=== PATIENT | female | born 1955 | race Caucasian/White ===

== ENCOUNTER 2020-08-01 13:05 | Outpatient (REF) | payer MEDICAID, SELFPAY ==
--- NOTE | 2020-08-01 11:45 | PAPFT_PTH ---
PATIENT: Blanca Lujan LOC: [facility]#:[id number] AGE/SX: 64/F ROOM: RE08/01/[address]: Hina Johnson : 1955 BED: DIS: 08/01/2020 SPEC #: [id number] RECD: 08/01/20 18:02 STATUS: SIVAKUMAR REQ #: [id number] CONY: 08/01/20 11:[address]: Hina Johnson DEPT: [facility] Cytology RECD BY: Kylee Simons ENTERED: 08/01/20 18:03 SP TYPE: PAPFT OTHR DR: Shruthi Arrington V Tissues: 1 - CX/ENDOCX FOR PAP SMEARS Procedures: PAP THIN PREP/[facility] Screening Comments: [id number]
[2020-08-01 15:44] LABS: Abs Immature Grans 0.03 10^3/uL (0.0-0.06); Absolute Basophil Count 0.03 10^3/uL (0.0-0.2); Absolute Eosinophil Count 0.24 10^3/uL (0.0-0.7); Absolute Lymphocyte Count 2.17 10^3/uL (1.2-3.4); Absolute Neutrophil Count 4.68 10^3/uL (1.2-6.7); Basophils % 0.4; Eosinophils % 3.1; HCT 45.9 % (36.0-46.0); HGB 15.4 g/dL (11.2-15.7); Immature Grans % 0.4; Lymphocytes % 28.4; MCH 29.6 pg (27.0-33.0); MCHC 33.6 % (32.0-36.0); MCV 88.1 fL (80-95); MPV 10.7 fL (8.0-11.0); Monocytes % 6.5; Neutrophils % 61.2; Nucleated RBC 0 %; Platelet Count 249 10^3/uL (130-400); RBC 5.21 10^6/uL (3.93-5.22); RDW 11.9 % (11.7-14.6); RDW-SD 38.8 fL; WBC 7.65 10^3/uL (4.4-10.8)
[2020-08-01 16:05] LABS: Hemoglobin A1C 5.9 % (<5.7)
[2020-08-01 16:22] LABS: ALT 50 U/L (14-59); AST 24 U/L (15-37); Albumin 4.2 g/dL (3.4-5.0); Alkaline Phosphatase 65 U/L (46-116); Anion Gap 11.1 mmol/L (3-11); BUN 16 mg/dL (7-18); Bilirubin, Total 0.3 mg/dL (0.2-1.0); CO2 25.9 mmol/L (21.0-32.0); CREATININE 0.8 mg/dL (0.55-1.02); Calcium 9.5 mg/dL (8.5-10.1); Calculated LDL 123 mg/dL (<100); Chloride 103 mmol/L (98-107); Cholesterol 210 mg/dL (<200); Glucose 90 mg/dL (74-106); HDL Cholesterol 37 mg/dL (40-60); Potassium 4.1 mmol/L (3.5-5.1); Sodium 140 mmol/L (136-145); TSH (W/Ref FT4) 1.38 uIU/mL (0.36-3.74); Total Protein 7.4 g/dL (6.4-8.2); Triglyceride 253 mg/dL (<150)
== END 2020-08-01 13:06 | disposition home or self-care (01) ==
LOC: NCHCN 13:05
PROVIDERS: PCP Family Medicine; Visit Provider Nurse Practitioner Family
DX: R53.83 Other fatigue (principal); R63.5 Abnormal weight gain; R19.7 Diarrhea, unspecified; Z13.1 Encounter for screening for diabetes mellitus; Z13.220 Encounter for screening for lipoid disorders; N76.0 Acute vaginitis; Z12.4 Encounter for screening for malignant neoplasm of cervix
CPT/HCPCS: 80053; 80061; 88142; 83036; 84443; 85025; 87480; 87510; 87660

== ENCOUNTER 2020-08-14 00:47 | Outpatient (CLI) | payer MEDICAID, SELFPAY ==
--- NOTE | 2020-08-14 | DI.MAMMO_ITS ---
EXAM: MG MAMMO SCREENING CLINICAL HISTORY: SCREENING, [facility],Z00.00 TECHNIQUE: Bilateral full field digital CC and MLO mammographic images were obtained with 3D tomosyn thesis and utilizing computer aided detection (CAD). COMPARISON: Available for comparison. FINDINGS: Masses/Architectural Distortion: None seen. Microcalcifications: No suspicious pleomorphic-type are seen. Skin Thickening/Nipple Retraction: None. IMPRESSION: 1. No significant interval change with no specific features of malignancy noted. 2. Unless there is more urgent need, screening mammography is recommended, as per [place] [employer] guidelines. BI-RADS Category 1 - Negative Breast Density - Category B - Scattered areas of fibroglandular density Breast density category C or D implies that the patient has dense breast tissue. Dense breast tissue is very common and is not abnormal but dense breast tissue can make it harder to find cancer on a ma mmogram. Also, dense breast tissue may increase their breast cancer risk. This information about the result of the mammogram report was provided to the patient to raise their awareness. Use this report when you speak with the patient about their risks for breast cancer, which includes their family hist ory. At that time, you may recommend for more screening tests (Ultrasound or MRI) as they might be us eful based on their risk. A negative radiographic report should not delay biopsy if a dominant or clinically suspicious mass is present. Up to ten percent of cancers are not identified on mammography. A negative report may reinforce clinical impression. Adenosis and dense breasts may obscure an underlying neoplasm. False positive reports average 6 to 10%. Patient will receive a letter notifying them of these results.
== END 2020-08-14 01:07 ==
PROVIDERS: PCP Family Medicine; Visit Provider Nurse Practitioner Family
DX: Z12.31 Encounter for screening mammogram for malignant neoplasm of breast (principal)
CPT/HCPCS: 77063; 77067

== ENCOUNTER 2021-10-08 18:35 | Outpatient (REF) | payer MEDICAID, SELFPAY ==
[2021-10-08 21:17] LABS: Abs Immature Grans 0.05 10^3/uL (0.0-0.06); Absolute Basophil Count 0.07 10^3/uL (0.0-0.2); Absolute Lymphocyte Count 1.44 10^3/uL (1.2-3.4); Absolute Monocyte Count 0.87 10^3/uL (0.1-0.8); Absolute Neutrophil Count 8.55 10^3/uL (1.2-6.7); Basophils % 0.6; Eosinophils % 1.8; HCT 45.1 % (36.0-46.0); Immature Grans % 0.4; Lymphocytes % 12.9; MCH 29.8 pg (27.0-33.0); MCHC 33.3 % (32.0-36.0); MCV 89.5 fL (80-95); Monocytes % 7.8; Neutrophils % 76.5; Platelet Count 211 10^3/uL (130-400); RBC 5.04 10^6/uL (3.93-5.22); RDW 12.3 % (11.7-14.6); RDW-SD 40.5 fL; WBC 11.18 10^3/uL (4.4-10.8)
[2021-10-08 21:42] LABS: ALT 30 U/L (14-59); AST 19 U/L (15-37); Albumin 4.2 g/dL (3.4-5.0); Alkaline Phosphatase 67 U/L (46-116); Anion Gap 8.5 mmol/L (3-11); BUN 14 mg/dL (7-18); Bilirubin, Total 0.7 mg/dL (0.2-1.0); CO2 27.5 mmol/L (21.0-32.0); CREATININE 0.8 mg/dL (0.55-1.02); Chloride 103 mmol/L (98-107); Glucose 105 mg/dL (74-106); Potassium 4.5 mmol/L (3.5-5.1); Sodium 139 mmol/L (136-145); Total Protein 7.3 g/dL (6.4-8.2)
[2021-10-10 11:37] LABS: COVID-19 RT-PCR UVMMC Result Negative (Negative)
== END 2021-10-08 18:36 | disposition home or self-care (01) ==
LOC: LBN 18:35
PROVIDERS: PCP Family Medicine; Visit Provider Physician Assistant Medical
DX: R10.9 Unspecified abdominal pain (principal); Z20.822 Contact with and (suspected) exposure to COVID-19
CPT/HCPCS: 80053; U0003; 85025

== ENCOUNTER → 2021-10-09 14:32 | Outpatient (CLI) | payer MEDICAID, SELFPAY ==
--- NOTE | 2021-10-09 | DI.CT_ITS ---
Exam(s) CT ABDOMEN PELVIS W EXAM: CT ABDOMEN PELVIS W INDICATION: LLQ ABD PAIN,? DIVERTICULITIS. COMPARISON: No exams were available for comparison TECHNIQUE: FINDINGS: CT examination of the abdomen and pelvis was performed with a bolus infusion of 100 cc of Omnipaque 3 50. Images obtained through the lung bases are unremarkable. The liver is unremarkable in appearance. Gallbladder and bile ducts are CT normal. Pancreas appears normal. Spleen is unremarkable in appearance. Adrenals appear normal. The kidneys are unremarkable with no evidence of hydronephrosis, nephrolithiasis, or renal mass.. Ur inary bladder unremarkable. Abdominal aorta is of normal diameter and no major vascular abnormality is seen. No abdominal wall hernia. No abdominal or pelvic adenopathy. There are multiple uterine masses which are partially calcified consistent uterine fibroids period. The appendix is normal in diameter although fluid filled. Note is made of question of wall thickenin g the base of the cecum adjacent to the appendix, possibility of a focal cecal mass would have to be raised. Correlation with colonoscopy is recommended. Nonspecific small lymph nodes noted adjacent t o the base of the cecum, the largest about 10 millimeters in diameter. Note is made of focal area of wall thickening with associated pericolonic fat edema of the distal edmond cending colon consistent with diverticulitis. No perforation or abscess identified at this site. Mi ld prominence of pericolonic mesenteric lymph nodes. No evidence of obstruction. IMPRESSION: Acute diverticulitis of the distal descending colon, no evidence of perforation or abscess formation. Worrisome findings of wall thickening of the base of the cecum adjacent to the appendix, colonoscopic evaluation recommended to rule out neoplastic disease. There are a few small lymph nodes in the fat adjacent to the base of the cecum, the largest measuring about 10 millimeters in diameter. These are nonspecific with no bulky adenopathy seen. RADIATION DOSE DELIVERED: 1,046.28mGy.cm Total DLP 1,046.28mGy.cm Total DLP !Error CTDIvol RADIATION OPTIMIZATION: All CT scans at this facility use at least one of these dose optimization te chniques: automated exposure control; mA and/or kV adjustment per patient size (includes targeted exa ms where dose is matched to clinical indication); or iterative reconstruction.
[2021-10-09] MEDS: Omnipaque 350 MG/ML 50 ML BTL IJ (09:30)
[2021-10-09] MEDS: Breeza Beverage 473 ML BTL PO (09:30)
[2021-10-09] MEDS: Omnipaque 350 MG/ML 100 ML BTL IJ (09:31)
== END ==
PROVIDERS: PCP Family Medicine; Visit Provider Physician Assistant Medical
DX: R10.32 Left lower quadrant pain (principal); K57.32 Diverticulitis of large intestine without perforation or abscess without bleeding; K63.89 Other specified diseases of intestine
CPT/HCPCS: 74177; J3490; Q9967

== ENCOUNTER 2021-10-14 02:00 | Outpatient (CLI) | payer MEDICAID, SELFPAY ==
--- OUTSIDE RECORDS SUMMARY | 2021-10-14 02:01 | XMS_ITS ---
:1955 Author Care Team Providers Name Role Phone [facility] OTHER [phone] SHARYN TURNER Primary Care Provider [phone] Allergies Code Code System Name Reaction Severity Status Onset 20360723 RxNorm Biaxin Hives ? Active ? Notes: Another antibiotic but pt could not remember name Pollen Medications Name Status Start Date Stop Date ? ? Ambien 10 mg tablet Completed 05/09/2014 05/10/2014 1 (one) Tablet: qhs - at bedtime prn cholecalciferol (vitamin D3) 50 mcg (2,000 unit) capsule Active ? Not available take 1 capsule in summer daily; take 2 capsules in winter daily cyanocobalamin (vit B-12) 500 mcg tablet Active ? Not available take 1 to 2 tabs in morning daily magnesium 250 mg (as magnesium oxide) tablet Active ? Not available TAKE 1 TABLET BY MOUTH TWICE DAILY magnesium 250 mg tablet Active ? Not avai lable Take 1 tablet twice a day by oral route. magnesium gluconate 27 mg Completed ? 2020 magnesium (500 mg) tablet vitamin B complex tablet Active ? Not joel ilable Take 1 tablet every day by oral route in the morning. Vitamins B Complex capsule Active ? Not a vailable Problems Name Status Onset Date Source ? Vitamin D Deficiency Active ? History Bruxism (Teeth Grinding) Active ? ? Posttraumatic Stress Disorder Active ? Hi story Depressive Disorder Active ? History Obstructive Sleep Apnea Syndrome Active ? History Lack of Energy Active ? History Snoring Active ? History Elevated Blood-pressure Reading without Active ? History Diagnosis of Hypertension Procedure by Method Unknown ? History Clinical Finding Unknown ? History Digestive System Finding Unknown ? History Procedures None recorded. Results Lab Results Date Name Specimen Result Interpretation Description Value Range Status Address ? 03/05/2021 Vitamin B12, S ? Vit 374.0 193.0-986.0 [facility] Serum B12 pg/mL pg/mL Hospital L ab (Internal) : [address] 03/05/2021 Vitamin D, S ? 25-Hyd <4.0 ? Final [place] [facility] [place] 25-Hydroxy, marcella D2 NG/mL Hosp ital Lab Total, Serum (Int ernal): [address], [place] ? ? S ? 25-Hyd 45 ? Final [facility] ntry marcella D3 NG/mL Hospital Lab (Internal) : [address] ? ? S ? 25-Hyd 45 ? Final [facility] ntry marcella D NG/mL Hospital L ab Total (Internal) : [address] 04/07/2017 Venipuncture BLD ? Venpn* ? ? Final [facility] Hospital L ab (Internal) : [address], [place] 04/07/2017 Vitamin D, S ? 25-Hyd <4.0 ? Final N [facility] 25-Hydroxy, marcella D2 NG/mL Hosp ital Lab Total, Serum (Int ernal): [address] ? ? S ? 25-Hyd 48 ? Final [facility] ntry marcella D3 NG/mL Hospital Lab (Internal) : [address] ? ? S ? 25-Hyd 48 ? Final [facility] ntry marcella D NG/mL Hospital L ab Total (Internal) : [address] Past Encounters 03/05/2021 Obstructive Sleep Apnea Syndrome; Vitami n D Deficiency; Fatigue; Cramp in Lower Limb Associated with Sleep Mai Mack MD, Board Certified Sleep Ph ysician: [address] [place] [address], Ph. 06/05/2020 Obstructive Sleep Apnea Syndrome; Vitami n D Deficiency; Fatigue; Cramp in Lower Limb Associated with Sleep Mai Mack MD, Board Certified Sleep Ph ysician: [address] [place] [address], Ph. Social History Tobacco Smoking Status Former Smoker Notes: started smoking at age 20, 3-4 cigarettes/day. quit 1979, restarted 2005 for 3 years. Vaccine List None recorded. Plan of Care Patient Instructions RECALL OF CPAP MACHINE discussed [place] your machine GUSTAVO We went over pros/cons of continuing to use cpap vs stopping, no change to setting at auto cpap 5 to 14cm. Change your cpap supplies on regular bas is, especially filters (washing if needed) and mask cushions. Do not use SoClean machine on the recall machine Get labs checked Keep using the Vitamin D supplement at 2 000 i.u. daily, magnesium gluconate 500mg in evening, vitamin b12 500mcg and vitamin b complex 1 tab in mornings. You will be notified if you need changes in dose afer lab results are back 9 month follow up, sooner if needed Oral appliance sleep study confirms resolution of your sleep apnea in the tested positions. Continue using your cpap, set at auto cp ap 5 to 14cm. Change your cpap supplies on regular bas is, especially filters (washing if needed) and mask cushions. Keep using the Vitamin D supplement at 2 000 i.u. daily, magnesium gluconate 500mg in evening, vitamin b12 500mcg and vitamin b complex 1 tab in mornings. Reminders Provider Appointments None recorded. ? ? Lab None recorded. ? ? Referral None recorded. ? ? Procedures None recorded. ? ? Surgeries None recorded. ? ? Imaging None recorded. ? ? Vitals 03/05/2021 08:30AM Office 30 Height Weight BMI Blood Pressure 154.94 cm 87.36 kg 36.4 kg/m2 144/75 mm[Hg] 06/05/2020 10:00AM Office 30 Height Weight BMI 154.94 cm 81.65 kg 34 kg/m2 02/21/2020 10:30AM Office 30 Height Weight BMI 154.94 cm 86.18 kg 35.9 kg/m2 12/06/2019 02:30PM Office 30 Height Weight BMI 154.94 cm 81.65 kg 34 kg/m2 11/15/2019 01:00PM Office 30 Height Weight BMI 154.94 cm 81.65 kg 34 kg/m2 10/31/2019 09:30AM Office 30 Height Weight BMI 154.94 cm 79.38 kg 33.1 kg/m2 06/17/2017 Height Weight Blood Pressure 154.94 cm 82.55 kg 147/83 mm[Hg] 04/07/2017 Weight Blood Pressure 81.65 kg 136/60 mm[Hg] 02/04/2017 Height Weight Blood Pressure 154.94 cm 82.1 kg 160/90 mm[Hg] 10/26/2016 Height Weight Blood Pressure 154.94 cm 78.61 kg 148/86 mm[Hg] 07/16/2014 Height Weight Blood Pressure 154.94 cm 70.85 kg 158/92 mm[Hg] 05/09/2014 Height Weight Blood Pressure 154.94 cm 69.91 kg 138/76 mm[Hg]
[2021-10-14 11:47] LABS: HCT 42.1 % (36.0-46.0); MCH 29.2 pg (27.0-33.0); MCHC 33.3 % (32.0-36.0); MCV 88 fL (80-95); MPV 9.5 fL (8.0-11.0); Platelet Count 261 10^3/uL (130-400); RDW 11.5 % (11.7-14.6); RDW-SD 37.3 fL; WBC 7.33 10^3/uL (4.4-10.8)
[2021-10-14 12:01] LABS: PTT Activated 27.3 sec (21.0-27.5); Prothrombin Time 10.3 sec (9.3-11.0)
[2021-10-16 12:01] LABS: Coag FactorVIII Activity Assay 185 % (55 - 200); von Willebrand Factor Activity 118 % (55 - 200); von Willebrand Factor Ag 149 % (55 - 200)
== END 2021-10-14 02:01 | disposition home or self-care (01) ==
LOC: LBO 02:01
PROVIDERS: PCP Family Medicine; Visit Provider Nurse Practitioner Family
DX: Z83.2 Family history of diseases of the blood and blood-forming organs and certain disorders involving the immune mechanism (principal)
CPT/HCPCS: 36415; 85027; 85240; 85246; 85390; 85397; 85610; 85730

== ENCOUNTER 2021-11-07 06:02 | Day surgery (SDC) | payer MEDICAID, SELFPAY ==
--- NOTE | 2021-11-06 11:22 | W.COLOREPORT ---
Colonoscopy Report Date of procedure: 11/07/21 Pre-op diagnosis general: abnl CT cecum/recent diverticulitis Post-op diagnosis procedure note: other (E. Hemorrhoids (extensive)/diverticula/extensive polyps) Surgeon: Monique Rock Anesthesia Type: General:No Airway Pathology: other Complications: None Disposition: same day Prep: Miralax/Dulcolax Retraction Time: 45 mins Procedure Description: After informed consent was obtained the patient was taken to the procedure room and placed in a left decubitous position. Monitors were applied and a time out was done. The patients name, date of , procedure, allergies to medications and metal in their body was reviewed. The patient was then sedated. Once sedated and comfortable a rectal exam was done. External exam shows significant external hemorrhoids w/ no acute inflammation. Internal exam revealed a normal sphincter/sigmoid/left colon and transverse colon. BB PS 2 in the cecum and right colon, for a total of 8. no palpable masses. The scope was then introduced and retrofelexed. Grade I internal hemorrhoids were identified and mult hemorrhoidal tags.. The scope was then advanced to the cecum w/our difficulty. The TI and appendiceal orifice were identified. The prep was BBPS 3 in the transverse colon and rectosigmoid colon.. The scope was then slowly retracted over 45 minutes back into the rectum. She has multiple large mouth diverticula that began at 60 cm and continue all the way to the rectosigmoid junction. There is no signs of active bleeding or infection. Mucosa is otherwise pink and healthy with a normal vascular pattern. She has 12 polyps that we removed today. These all appear adenomatous under NBI. She had x4 polyps removed with cecum, 3 of these polyps were small flat 5 mm polyps. Another was flat and 0.75 mm in size. These were all removed with a cold biopsy forcep. She had x5 small flat 5 mm polyps removed at 80 cm. She had x2 polyps at 60 cm, that were flat and less than 5 mm, and all removed with a cold biting forcep she had a large 2 cm polyp at 20 cm. This is removed with a hot snare. It was on a long thin stalk. No clip was required. No bleeding was noted.he had x2 flat less than 5 mm polyps at 30 cm that are removed with a cold biting forcep. The scope was removed and the patient was woken up and taken back to Same day surgery in stable condition. The patient tolerated the procedure well and there were no immediate complications. Follow up: The patient should follow up in 1 years time, path, pd, unless they develop changes in bowel habits or other new gastrointestinal complaints.
--- NOTE | 2021-11-06 11:23 | PDOC.DSDIS_ITS ---
Discharge Plan Disposition Patient Disposition: HOME Condition: Good Discharge Details Reason For Visit: colon scope Attending Provider: Monique Rock Primary Care Provider: Shruthi Arrington V Home Meds and New Rx's Prescriptions: Continued 5-hydroxytryptophan (5-HTP) [5-HTP] 100 mg capsule 100 mg PO BID ibuprofen 800 MG tablet 800 mg PO Q8H PRN FLEXERIL 10 MG tablet 10 mg PO DIRECTED magnesium 250 mg tablet 250 mg PO DAILY vitamin B complex Capsule 1 cap PO DAILY cyanocobalamin (vitamin B-12) [Vitamin B-12] 500 mcg tablet 500 mcg PO DAILY cholecalciferol (vitamin D3) 50 mcg (2,000 unit) capsule 50 mcg PO DAILY L-Tyronsine 1,000 mg PO DAILY Label Comments: Uses for PTSD Nac 2 cap PO TID PRN Label Comments: Uses for PTSD Discontinued polyethylene glycol 3350 17 gram/dose powder 238 g PO ONCE Qty: 238 0RF Rx Instructions: take per colonoscopy instructions bisacodyl [Dulcolax (bisacodyl)] 5 mg tablet,delayed release (DR/EC) 5 mg PO ONCE Qty: 4 0RF Rx Instructions: take per colonoscopy instructions Discharge Instructions Additional Instructions: DSU Colonoscopy Post- Op Instructions Instructions for Everyone who is given Anesthesia: For your safety, please do the following for the next twenty-four (24) hours: *Do Not operate a motor vehicle (car, truck, motorcycle, etc.) *Do Not drink alcoholic beverages or use any recreational drugs for the first 24 hours or while taking pain medications. The medications in your body may have a reaction that can be dangerous. *Do Not make any important decisions or sign any important papers. -No ASA/NSAID's x2 weeks. Tylenol is OK Findings: -Hemorrhoids -Diverticula -sure you are moving your bowels on a regular basis and avoid straining. If you find that you are having problems with constipation or straining, I recommend you start a fiber product daily. -Multiple polyps Follow up: -Repeat colonoscopy in 1 years time -no alcohol x 72hrs -no strenuous activity x 72 hrs 1. No lifting over 20 pounds or strenuous activity for the first 72 hours after your procedure. After 24 hours there are no restrictions on your activity but you may feel fatigued for a few days. 2. After you arrive home you may have a light meal and return to your normal diet as you can tolerate it without feeling sick to your stomach. 3. You may have a bloated, gaseous feeling in your belly (abdomen) after a colonoscopy. Passing gas and belching will help. Walking or lying down on your left side with your knees flexed may relieve the discomfort. Call the office at [phone] (Office) or [phone] (Hospital) right away if you notice any of the following: a.Vomiting of blood or ?coffee ground stools?. b.Rectal bleeding 1Tbsp, blood clots or continuous bleeding. c.Severe belly (abdominal) pain. d.A hard distended belly (abdomen) and an inability to pass gas. 4. Please don?t expect to have a normal BM (bowel movement) for 2-3 days after your procedure. 5. If there are questions regarding the findings of your procedure, please contact your doctor 6. If you are unable to contact your doctor with a problem, contact the hospital at [phone]. 7. Continue all your regular medications unless directed otherwise. I understand the above instructions and have no questions. Signature of Patient or Adult Escort Name of Responsible Adult Escort Signature of Nurse Date/Time Activity:: See above Diet:: See above Discharge Orders Discharge Orders: Discharge Order (Routine); Ordered 11/06/21 Ordered By: Monique Rock
--- OUTSIDE RECORDS SUMMARY | 2021-11-07 06:04 | XMS_ITS ---
:1955 Author Care Team Providers Name Role Phone [facility] OTHER [phone] SHARYN TURNER Primary Care Provider [phone] Allergies Code Code System Name Reaction Severity [...] by oral route. magnesium gluconate 27 mg magnesium (500 mg) Completed ? 03/05/2021 tablet vitamin B complex tablet Active ? [...] Active ? History Elevated Blood-pressure Reading without Diagnosis of Active ? History Hypertension Procedure by Method Unknown ? History Clinical Finding Unknown ? History Digestive System Finding Unknown ? History Procedures None recorded. Results Lab Results Date Name Specimen Result Interpretation Description Value Range Status Address ? 03/05/2021 Vitamin B12, S ? Vit 374.0 193.0-986.0 [facility] Serum B12 pg/mL pg/mL Hospital L ab (Internal) : [address] 03/05/2021 Vitamin D, S ? 25-Hyd <4.0 ? Final N [place] 25-Hydroxy, marcella D2 NG/mL Hosp ital Lab Total, Serum (Int ernal): [address], [place] ? ? S ? 25-Hyd 45 ? Final [facility] ntry marcella D3 NG/mL Hospital Lab (Internal) : [address] ? ? S ? 25-Hyd 45 ? Final [facility] ntry marcella D NG/mL Hospital L ab Total (Internal) : [address] 04/07/2017 Venipuncture BLD ? Venpn* ? ? Final [facility] Hospital L ab (Internal) : [address], [place] 04/07/2017 Vitamin D, S ? 25-Hyd <4.0 ? Final N [facility] Country 25-Hydroxy, marcella D2 NG/mL Hosp ital Lab Total, Serum (Int ernal): [address] ? ? S ? 25-Hyd 48 ? Final [facility] ntry marcella D3 NG/mL Hospital Lab (Internal) : [address] ? ? S ? 25-Hyd 48 ? Final [facility] ntry marcella D NG/mL Hospital L ab Total (Internal) : [address] Past Encounters 03/05/2021 Obstructive Sleep Apnea Syndrome; Vitami n D Deficiency; Fatigue; Cramp in Lower Limb Associated with Sleep Mai Mack MD, Board Certified Sleep Ph ysician: [address] [place] [address], Ph. 06/05/2020 Obstructive Sleep Apnea Syndrome; Vitami n D Deficiency; Fatigue; Cramp in Lower Limb Associated with Sleep Mai Mack MD, Board Certified Sleep Ph ysician: [address] [place] [address], Ph. Social History Tobacco Smoking Status Former Smoker Notes: started smoking at age 20, 3-4 cigarettes/day. quit 1979, restarted 2005 for 3 years. Vaccine List None recorded. Plan of Care Patient Instructions RECALL OF CPAP MACHINE discussed [place] your machine GUSTAVO We went over pros/cons [...] if needed Oral appliance sleep study confirms res olution of your sleep apnea in the tested [...]
[2021-11-07 06:15] VITALS: BP 139/88; PULSE 78; RESP 18; TEMP 36.5; O2SAT 97
--- NOTE | 2021-11-07 06:56 | W.ANESPRE ---
General Info Date of Service Date Performed: 11/07/21 Height: 5 ft 1 in Weight: 80 kg Body Mass Index (BMI): 33.3 Surgical Procedure: Operation Date: 11/07/21 07:35 Proposed Procedure Side Surgeon brittany Rock, Meds Allergies and Home Medications Allergies Allergy/AdvReac Type Severity Reaction Status Date / Time cephalexin monohydrate Allergy Unknown hives Unverified 11/07/21 06:42 [From Keflex] sulfamethoxazole Allergy Unknown hives Unverified 11/07/21 06:42 [From Bactrim] trimethoprim [From Bactrim] Allergy Unknown hives Unverified 11/07/21 06:42 Home Medication Medication Instructions Recorded Flexeril 10 mg PO DIRECTED 04/26/14 ibuprofen 800 mg tablet 800 mg PO Q8H PRN 04/26/14 cholecalciferol (vitamin D3) 50 50 mcg PO DAILY 10/29/21 mcg (2,000 unit) capsule cyanocobalamin (vitamin B-12) 500 500 mcg PO DAILY 10/29/21 mcg tablet (Vitamin B-12) magnesium 250 mg tablet 250 mg PO DAILY 10/29/21 vitamin B complex 1 cap PO DAILY 10/29/21 5-hydroxytryptophan (5-HTP) 100 mg 100 mg PO BID 10/30/21 capsule (5-HTP) L-Tyronsine 1,000 mg PO DAILY 11/04/21 Nac 2 cap PO TID PRN 11/04/21 Current Visit Medications: Current Medications Generic Name Dose Route Start Last Admin Trade Name Freq PRN Reason Stop Dose Admin Hyoscyamine Sulfate 0.125 mg 11/06/21 11:25 Hyoscyamine 0.125 Mg Sl/Oral/Chew SL DIRECTED PRN Ringer's Solution 1,000 mls @ 80 mls/hr 11/07/21 06:00 IV 11/11/21 23:59 INFUSION JORDAN IV Miscellaneous Supplies 1 each 11/07/21 06:00 Iv Access IV 11/11/21 23:59 DIRECTED JORDAN Ondansetron HCl 4 mg 11/06/21 11:25 Ondansetron 4 Mg/2 Ml Vial IVP Q4H PRN PRN Nausea / Vomiting Sodium Chloride 0 ml 11/07/21 06:00 Normal Saline Flush 10 Ml Syr IV 11/11/21 23:59 PRN PRN Sodium Chloride 0 ml 11/07/21 06:00 Normal Saline 10 Ml Vial IJ 11/11/21 23:59 DIRECTED PRN Sterile Water 0 ml 11/07/21 06:00 Water,Injection,Sterile 10 Ml Vial IJ 11/11/21 23:59 DIRECTED PRN PFSH Active Problems Active Problems: Problem Status Onset Code Colonic thickening K63.9 Abdominal pain R10.9 Weight gain R63.5 Diarrhea R19.7 Diverticulitis K57.92 Medical History Medical History ADHD Allergic rhinitis Anxiety with depression Borderline personality disorder Depression Depression, major Fatigue History of hemorrhoids per patient had them surgically removed. Leg cramps PTSD (post-traumatic stress disorder) Sleep apnea Stress Vitamin D deficiency Surgical History Surgical History Cataracts, bilateral History of surgery Right thumb Open Carpal Tunnel release Bilateral Trigger Finger release Tobacco Smoking/Tobacco Use Status: Former Tobacco Use Alcohol Alcohol Intake: current Alcohol intake frequency: other Substance Use Substance use: Daily Substance use type: marijuana Details: Uses marijuana for PTSD Vital Signs and Lab Results Vital Signs Most Recent Vital Signs in EMR: Temp Pulse Resp BP Pulse Ox 36.5 C 78 18 139/88 97 11/07/21 06:15 11/07/21 06:15 11/07/21 06:15 11/07/21 06:15 11/07/21 06:15 Lab Results Blood Type / Crossmatch: No Data to Display Complete Blood Count: White Blood Count 7.33 10^3/uL (4.4-10.8) 10/14/21 11:40 Red Blood Count 4.80 10^6/uL (3.93-5.22) 10/14/21 11:40 Hemoglobin 14.0 g/dL (11.2-15.7) 10/14/21 11:40 Hematocrit 42.1 % (36.0-46.0) 10/14/21 11:40 Platelet Count 261 10^3/uL (130-400) 10/14/21 11:40 Complete Metabolic Panel: Sodium Level 139 mmol/L (136-145) 10/08/21 16:20 Potassium Level 4.5 mmol/L (3.5-5.1) 10/08/21 16:20 Chloride Level 103 mmol/L (98-107) 10/08/21 16:20 Carbon Dioxide Level 27.5 mmol/L (21.0-32.0) 10/08/21 16:20 Blood Urea Nitrogen 14 mg/dL (7-18) 10/08/21 16:20 Creatinine 0.8 mg/dL (0.55-1.02) 10/08/21 16:20 Estimated GFR/1.73 m2 >= 60.00 (mL/min/1.73m2) 10/08/21 16:20 Calcium Level 9.0 mg/dL (8.5-10.1) 10/08/21 16:20 Albumin 4.2 g/dL (3.4-5.0) 10/08/21 16:20 Glucose Level 105 mg/dL (74-106) 10/08/21 16:20 Liver Function Panel: Alanine Aminotransferase (ALT/SGPT) 30 U/L (14-59) 10/08/21 16:20 Aspartate Amino Transf (AST/SGOT) 19 U/L (15-37) 10/08/21 16:20 Coagulation Panel: INR International Normalized Ratio 1.0 (0.9-1.1) 10/14/21 11:40 Prothrombin Time 10.3 sec (9.3-11.0) 10/14/21 11:40 Activated Partial Thromboplast Time 27.3 sec (21.0-27.5) 10/14/21 11:40 Cardiac Panel: No Data to Display Arterial Blood Gas: No Data to Display Venous Blood Gas: No Data to Display Pancreas Panel: No Data to Display Thyroid Panel: No Data to Display Infectious Disease: Coronavirus (COVID-19)(PCR) Negative (Negative) 10/08/21 16:20 Blood Cultures: No Data to Display Toxicology Panel: No Data to Display Anesthesia Assessment and Plan Anesthesia History Personal History: No History of Anesthesia Complications Family History: Family History Unknown Exercise Tolerance Exercise Tolerance: Metabolic Equivalents>4 Pertinent Negatives Pertinent Negatives: No Symptoms of GERD, No Major Cardiovascular Symptoms or Complaints and No Major Pulmonary Symptoms or Complaints Cardiac & Pulmonary Exam Cardiac Exam: Normal S1/S2 Heart Sounds Pulmonary Exam: Clear Bilateral Breath Sounds Implantable Cardiac Device Does patient have a Pacemaker or an ICD?: No Airway Exam Known Difficult Airway: No Mallampati Class: 1 Mouth Opening: Normal (> 3cm) Thyromental Distance: Greater than 3 cm Neck Range of Motion: Full ROM Neck Circumference: Normal Teeth Condition: Normal Dentition ASA Classification ASA Score: ASA 2 Emergency Case?: No NPO Status NPO Status: NPO Clears >2 hours, Solids >8 hours Anesthesia Plan Resuscitation Status: Full Code Anesthesia Technique: General Anesthesia Airway Planned: Natural Airway Monitors Used: Standard Monitors
[2021-11-07 07:03] VITALS: BMI 33.3
[2021-11-07] MEDS: Lactated Ringers 1,000 ML 80 ML IV (07:13)
--- NOTE | 2021-11-07 08:47 | BOWEL_PTH ---
PATIENT: Blanca Lujan LOC: [facility] U#:[id number] AGE/SX: 66/F ROOM: RE11/07/[address]: Monique Rock : 1955 BED: DIS: 11/07/2021 SPEC #: [id number] RECD: 11/07/21 11:30 STATUS: SIVAKUMAR REKeegan #: [id number] CONY: 11/07/21 08:[address]: Monique Rock DEPT: Surgical Specimen RECD BY: Kylee Simons ENTERED: 11/07/21 11:33 SP TYPE: Bowel OTHR DR: Shruthi Arrington V Tissues: 1 - BIOPSY BOWEL 2 - BIOPSY BOWEL 3 - BIOPSY BOWEL 4 - BIOPSY BOWEL 5 - BIOPSY BOWEL Procedures: GROSS AND MICRO LEVEL 4 Comments: [id number]
[2021-11-07 09:34] VITALS: BP 160/86; PULSE 63; RESP 16; TEMP 36.2; O2SAT 100
[2021-11-07] MEDS: CIPROFLOXACIN 400 MG/200 ML BAG 200 MG IVPB (09:54)
[2021-11-07 10:07] VITALS: BP 158/88; PULSE 60; RESP 16; TEMP 36; O2SAT 98
--- NOTE | 2021-11-07 10:22 | W.ANESPOSTOP ---
Postoperative Evaluation Date, Time and Location Date Performed: 11/07/21 Time Performed: : Patient Location: Day Surgery Unit Vital Signs Most Recent Imported Vital Signs: Most Recent Vital Signs Temp Pulse Resp BP Pulse Ox 36 C L 60 16 158/88 H 98 11/07/21 10:07 11/07/21 10:07 11/07/21 10:07 11/07/21 10:07 11/07/21 10:07 Pain Score Most Recent Pain Score: Most Recent Pain Score Pain Level 0 11/07/21 09:34 Assessment Mental Status: Awake (Alert & Oriented to Patient Baseline) Airway and Respiratory Function: Patent airway with normal (patient baseline) respiratory exam Cardiovascular Function: Hemodynamically Stable Hydration Status: Adequately Hydrated Nausea & Vomiting: No Nausea or Vomiting Pain: Pt. Denies Any Pain Peripheral Nerve Block: Patient did not receive a nerve block
[2021-11-07] MEDS: Hyoscyamine 0.125 MG SL/ORAL/CHEW SL (10:29)
[2021-11-07 10:34] VITALS: BP 155/90; PULSE 67; RESP 16; TEMP 36.2; O2SAT 99
[2021-11-07] MEDS: metroNIDAZOLE 500 MG/100 ML BAG 100 MG IVPB (10:57)
[2021-11-07 11:47] VITALS: BP 128/75; PULSE 66; RESP 16; TEMP 36.2; O2SAT 97
== END 2021-11-07 12:28 | disposition home or self-care (01) ==
PROVIDERS: PCP Family Medicine; Visit Provider Surgery
PROC: 0DJD8ZZ Inspection of Lower Intestinal Tract, Via Natural or Artificial Opening Endoscopic (ICD-10-PCS; CPT 45378; principal; 2021-11-07 07:30)
DX: R93.3 Abnormal findings on diagnostic imaging of other parts of digestive tract (principal); D12.0 Benign neoplasm of cecum; D12.5 Benign neoplasm of sigmoid colon; D12.4 Benign neoplasm of descending colon; K64.4 Residual hemorrhoidal skin tags; K57.30 Diverticulosis of large intestine without perforation or abscess without bleeding; E55.9 Vitamin D deficiency, unspecified; F32.9 Major depressive disorder, single episode, unspecified; K63.89 Other specified diseases of intestine
CPT/HCPCS: 45385; 45380; 88305; 96365; 96366; J0744; J2704; J3490

== ENCOUNTER 2022-10-15 10:53 | Outpatient (REF) | payer MEDICARE, MEDICAID, SELFPAY ==
[2022-10-15 17:01] LABS: Anion Gap 6.9 mmol/L (3-11); BUN 19 mg/dL (7-18); CO2 29.1 mmol/L (21.0-32.0); Calcium 8.8 mg/dL (8.5-10.1); Chloride 103 mmol/L (98-107); Estimated GFR 62.91 (mL/min/1.73m2); Glucose 173 mg/dL (74-106); Potassium 4.2 mmol/L (3.5-5.1); Sodium 139 mmol/L (136-145)
[2022-10-15 17:09] LABS: Hemoglobin A1C 5.9 % (<5.7)
[2022-10-15 18:07] LABS: Vitamin D 25 Total 33.5 ng/mL (30-100)
== END 2022-10-15 10:54 | disposition home or self-care (01) ==
LOC: NCHCN 10:53
PROVIDERS: PCP Family Medicine; Visit Provider Nurse Practitioner Family
DX: R73.03 Prediabetes (principal); E55.9 Vitamin D deficiency, unspecified
CPT/HCPCS: 80048; 82306; 83036

== ENCOUNTER → 2022-11-30 10:37 | Outpatient (BNVA) | payer MEDICARE, MEDICAID, SELFPAY | PROVIDERS: PCP Family Medicine; Referring Provider Family Medicine; Visit Provider Surgery | DX: K57.92 Diverticulitis of intestine, part unspecified, without perforation or abscess without bleeding (principal); R19.7 Diarrhea, unspecified; R73.03 Prediabetes; G47.30 Sleep apnea, unspecified | CPT/HCPCS: 99213 ==

== ENCOUNTER 2022-12-08 10:27 | Day surgery (SDC) | payer MEDICARE, MEDICAID, SELFPAY ==
--- NOTE | 2022-12-07 19:07 | PDOC.DSDIS_ITS ---
Date of service: 12/08/22 Time of Service: 13:44 Discharge Plan Disposition Patient Disposition: Home Condition: Good Discharge Details Reason For Visit: colon scope Attending Provider: Monique Rock Primary Care Provider: Shrutih Arrington V Home Meds and New Rx's Prescriptions: New metronidazole 500 mg tablet 500 mg PO TID 5 Days Qty: 15 0RF ciprofloxacin HCl [Cipro] 500 mg tablet 500 mg PO BID 5 Days Qty: 10 0RF Continued 5-hydroxytryptophan (5-HTP) [5-HTP] 100 mg capsule 100 mg PO BID ibuprofen 800 MG tablet 800 mg PO Q8H PRN FLEXERIL 10 MG tablet 10 mg PO DIRECTED magnesium 250 mg tablet 250 mg PO DAILY vitamin B complex Capsule 1 cap PO DAILY cyanocobalamin (vitamin B-12) [Vitamin B-12] 500 mcg tablet 500 mcg PO DAILY cholecalciferol (vitamin D3) 50 mcg (2,000 unit) capsule 50 mcg PO DAILY cyclobenzaprine 10 mg tablet 10 mg PO TID PRN L-Tyronsine 1,000 mg PO DAILY Patient Comments: Uses for PTSD Nac 2 cap PO TID PRN Patient Comments: Uses for PTSD Discontinued polyethylene glycol 3350 17 gram/dose powder 238 g PO ONCE Qty: 238 0RF Rx Instructions: take per colonoscopy instructions bisacodyl [Dulcolax (bisacodyl)] 5 mg tablet,delayed release (DR/EC) 5 mg PO ONCE Qty: 4 0RF Rx Instructions: take per colonoscopy instructions Discharge Instructions Additional Instructions: DSU Colonoscopy Post- Op Instructions Instructions for Everyone who is given Anesthesia: For your safety, please do the following for the next twenty-four (24) hours: *Do Not operate a motor vehicle (car, truck, motorcycle, etc.) *Do Not drink alcoholic beverages or use any recreational drugs for the first 24 hours or while taking pain medications. The medications in your body may have a reaction that can be dangerous. *Do Not make any important decisions or sign any important papers. Findings: 20+ polyps Follow up: W/ Dr. Rock in 2 wks time 12/24 1:30pm -No asiprin or Ibuprofen for 2 weeks. Tylenol is OK. -yogurt daily while on antibiotics 1. No lifting over 20 pounds or strenuous activity for the first 72 hours after your procedure. After 72 hours there are no restrictions on your activity but you may feel fatigued for a few days. 2. After you arrive home you may have a light meal and return to your normal diet as you can tolerate it without feeling sick to your stomach. 3. You may have a bloated, gaseous feeling in your belly (abdomen) after a colonoscopy. Passing gas and belching will help. Walking or lying down on your left side with your knees flexed may relieve the discomfort. Call the office at [phone] (Office) or [phone] (Hospital) right away if you notice any of the following: a.Vomiting of blood or ?coffee ground stools?. b.Rectal bleeding 1Tbsp, blood clots or continuous bleeding. c.Severe belly (abdominal) pain. d.A hard distended belly (abdomen) and an inability to pass gas. 4. Please don?t expect to have a normal BM (bowel movement) for 2-3 days after your procedure. 5. If there are questions regarding the findings of your procedure, please contact your doctor 6. If you are unable to contact your doctor with a problem, contact the hospital at [phone]. 7. Continue all your regular medications unless directed otherwise. I understand the above instructions and have no questions. Signature of Patient or Adult Escort Name of Responsible Adult Escort Signature of Nurse Date/Time Stand Alone Forms: Anesthesia Discharge Mariely Hoffmannchelsey (MADIEU) Activity:: see above Diet:: see above DS: Diagnosis Discharge Diagnosis (1) Tubulovillous adenoma: Status: Acute Asessment and Plan: The patient is seen and examined after their colonoscopy.? The patient has been able to pass gas.? They are not having abdominal pain.? They have been able to tolerate liquids and a snack.? They do not have any nausea or vomiting.? They are not having any chest pain or shortness of breath.??? They are not having any rectal bleeding. Their vital signs have been stable-see nursing notes. We discussed findings during their colonoscopy, and any biopsies that were done/polyps that were removed. The patient will be sent a letter with any biopsy results, and when to repeat the colonoscopy.-see discharge instructions. Patient was given explicit instructions to follow-up regarding colonoscopy-refer to discharge instructions.? We reviewed resumption of medications. Patient verbalized understanding and discharged in stable and satisfactory condition- See nursing notes. (2) Diarrhea: Status: Acute (3) Anxiety with depression: (4) ADHD: (5) Allergic rhinitis: (6) Borderline personality disorder: (7) Osteoarthritis: (8) Prediabetes: (9) PTSD (post-traumatic stress disorder): (10) Sleep apnea:
--- NOTE | 2022-12-07 19:09 | W.COLOREPORT ---
Date of service: 12/08/22 Time of Service: 13:49 Colonoscopy Report Date of procedure: 12/08/22 Pre-op diagnosis general: Villous adenoma at 20cm/mult adenomas/severe diverticular Dx Post-op diagnosis procedure note: other (external hemorrhoids/multiple polyps/sigmoid divertic) Procedure: 20+ polyps removed 50% cold forcepts 50% cold snare Surgeon: Monique Rock Anesthesia Type: General:No Airway Estimated blood loss (mL): 5 Pathology: other Complications: None Disposition: same day Prep: Miralax/Dulcolax Retraction Time: 60 Procedure Description: After informed consent was obtained the patient was taken to the procedure room and placed in a left decubitous position. Monitors were applied and a time out was done. The patients name, date of , procedure, allergies to medications and metal in their body was reviewed. The patient was then sedated. Once sedated and comfortable a rectal exam was done. External exam: Large external hemorrhoids with no acute thrombosis. No fissures. Internal exam revealed a normal sphincter tone and no palpable masses. The scope was then introduced and retrofelexed. No internal hemorrhoids were identified. The scope was then advanced to the cecum without difficulty. The TI and appendiceal orifice were identified. The prep was BBPS 1 in all segments for total of 3. The colon was irrigated with 2 L of saline. Small lesions less than 5 mm may have been missed. the scope was then slowly retracted over 60 minutes back into the rectum. She had severe diverticular disease confined to the sigmoid colon. There is no signs of active bleeding or infection. She has multiple polyps that we removed today. The polyps were all flat and ranged in size from 5mm to 1 cm. They were examined under NBI and did appear to be adenomatous. 50% of the polyps were removed with cold biopsy forcep. 50% of the polyps removed with a small snare. - There were 10+ polyps removed from the cecum. The 2 largest defects were closed with clips x2. -At 80 cm she had 3 polyps -At 70 cm she had 6 polyps At 60 cm she had 5 polyp- -at 40 cm she had 3 polyps At 35 cm she had 3 polyps At 25 cm she had 2 polyps. -All specimens are retrieved and no bleeding is noted The scope was removed and the patient was woken up and taken back to Same day surgery in stable condition. The patient tolerated the procedure well and there were no immediate complications. 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 Patient was examined in the postoperative. And had no abdominal pain, distention, bloating, or bleeding. Her vital signs are stable She will follow-up in the office in 2 weeks time to review biopsy results. Follow up: The patient should follow up in 6 month unless they develop changes in bowel habits or other new gastrointestinal complaints.
[2022-12-08 10:35] VITALS: BP 121/84; PULSE 104; RESP 16; TEMP 36.3; O2SAT 98
[2022-12-08] MEDS: Lactated Ringers 1,000 ML 80 ML IV (11:05)
--- NOTE | 2022-12-08 11:05 | W.ANESPRE ---
General Info Date of Service Date Performed: 12/08/22 Height: 5 ft 1 in Weight: 80.6 kg Body Mass Index (BMI): 33.5 Surgical Procedure: Operation Date: 12/08/22 10:50 Proposed Procedure Side Surgeon brittany Rock, DO Meds Allergies and Home Medications Allergies Allergy/AdvReac Type Severity Reaction Status Date / Time cephalexin monohydrate Allergy Unknown hives Unverified 12/08/22 10:46 [From Keflex] sulfamethoxazole Allergy Unknown hives Unverified 12/08/22 10:46 [From Bactrim] trimethoprim [From Bactrim] Allergy Unknown hives Unverified 12/08/22 10:46 Home Medication Medication Instructions Recorded Flexeril 10 mg PO DIRECTED 04/26/14 ibuprofen 800 mg tablet 800 mg PO Q8H PRN 04/26/14 cholecalciferol (vitamin D3) 50 50 mcg PO DAILY 10/29/21 mcg (2,000 unit) capsule cyanocobalamin (vitamin B-12) 500 500 mcg PO DAILY 10/29/21 mcg tablet (Vitamin B-12) magnesium 250 mg tablet 250 mg PO DAILY 10/29/21 vitamin B complex 1 cap PO DAILY 10/29/21 5-hydroxytryptophan (5-HTP) 100 mg 100 mg PO BID 10/30/21 capsule (5-HTP) L-Tyronsine 1,000 mg PO DAILY 11/04/21 Nac 2 cap PO TID PRN 11/04/21 cyclobenzaprine 10 mg tablet 10 mg PO TID PRN 11/19/22 Current Visit Medications: Current Medications Generic Name Dose Route Start Last Admin Trade Name Rehana PRN Reason Stop Dose Admin Ringer's Solution 1,000 mls @ 80 mls/hr 12/08/22 06:00 IV 01/06/23 23:59 INFUSION JORDAN IV Miscellaneous Supplies 1 each 12/08/22 06:00 Iv Access IV 01/06/23 23:59 DIRECTED JORDAN Sodium Chloride 0 ml 12/08/22 06:00 Normal Saline Flush 10 Ml Syr IV 01/06/23 23:59 PRN PRN Sodium Chloride 0 ml 12/08/22 06:00 Normal Saline 10 Ml Vial IJ 01/06/23 23:59 DIRECTED PRN Sterile Water 0 ml 12/08/22 06:00 Water,Injection,Sterile 10 Ml Vial IJ 01/06/23 23:59 DIRECTED PRN PFSH Active Problems Active Problems: Problem Status Onset Code Colonic thickening K63.9 Abdominal pain R10.9 Weight gain R63.5 Diarrhea R19.7 Diverticulitis K57.92 Tubulovillous adenoma ~11/07/21 D36.9 Skin lesion of scalp L98.9 Lesion of nose J34.89 Medical History Medical History ADHD Allergic rhinitis Anxiety with depression Borderline personality disorder Depression Depression, major Diverticular disease of large intestine External hemorrhoids Family history of von Willebrand disease Fatigue History of hemorrhoids per patient had them surgically removed. Leg cramps Osteoarthritis Prediabetes PTSD (post-traumatic stress disorder) Sleep apnea Stress Vitamin D deficiency Medical History Comments:: 12/08/22: pt shared that she has PTSD, and a trigger is if people come close to her face Surgical History Surgical History Cataracts, bilateral History of colonoscopy with polypectomy (~11/07/21) repeat 1 yr R/T number of polyps History of surgery Right thumb Open Carpal Tunnel release Bilateral Trigger Finger release Tobacco Smoking/Tobacco Use Status: Former Tobacco Use Alcohol Alcohol Intake: current Alcohol intake frequency: other Substance Use Substance use: Daily Substance use type: marijuana Details: Uses marijuana for PTSD 12/08/22: smoked cannabis this morning to calm herself 12/08/22 nicotine lozenge at 10:30am Vital Signs and Lab Results Vital Signs Most Recent Vital Signs in EMR: Most Recent Vital Signs Temp Pulse Resp BP Pulse Ox 36.3 C L 104 H 16 121/84 98 12/08/22 10:35 12/08/22 10:35 12/08/22 10:35 12/08/22 10:35 12/08/22 10:35 Lab Results Blood Type / Crossmatch: No Data to Display Complete Blood Count: No Data to Display Complete Metabolic Panel: No Data to Display Liver Function Panel: No Data to Display Coagulation Panel: No Data to Display Cardiac Panel: No Data to Display Arterial Blood Gas: No Data to Display Venous Blood Gas: No Data to Display Pancreas Panel: No Data to Display Thyroid Panel: No Data to Display Infectious Disease: No Data to Display Blood Cultures: No Data to Display Toxicology Panel: No Data to Display Anesthesia Assessment and Plan Anesthesia History Personal History: No History of Anesthesia Complications Family History: Family History Unknown Exercise Tolerance Exercise Tolerance: Metabolic Equivalents>4 Pertinent Negatives Pertinent Negatives: No Symptoms of GERD, No Major Cardiovascular Symptoms or Complaints, No Major Pulmonary Symptoms or Complaints and No History of CVA/TIA Cardiac & Pulmonary Exam Cardiac Exam: Normal S1/S2 Heart Sounds Pulmonary Exam: Clear Bilateral Breath Sounds Cardiac and Pulmonary Comment:: Severe ZARA, uses CPaP Implantable Cardiac Device Does patient have a Pacemaker or an ICD?: No Airway Exam Known Difficult Airway: No Mallampati Class: 1 Mouth Opening: Normal (> 3cm) Thyromental Distance: Greater than 3 cm Neck Range of Motion: Full ROM Neck Circumference: Normal Teeth Condition: Normal Dentition ASA Classification ASA Score: ASA 2 Emergency Case?: No NPO Status NPO Status: NPO Clears >2 hours, Solids >8 hours Anesthesia Plan Resuscitation Status: Full Code Anesthesia Technique: General Anesthesia Airway Planned: Natural Airway Monitors Used: Standard Monitors
[2022-12-08 11:11] VITALS: BMI 33.5
--- NOTE | 2022-12-08 11:35 | BOWEL_PTH ---
PATIENT: Blanca Lujan LOC: [facility] U#:[id number] AGE/SX: 67/F ROOM: RE12/08/[address]: Monique Rock : 1955 BED: DIS: 12/08/2022 SPEC #: [id number] RECD: 12/08/22 13:28 STATUS: SIVAKUMAR REKeegan #: [id number] CONY: 12/08/22 11:[address]: Monique Rock DEPT: Surgical Specimen RECD BY: Kylee Simons ENTERED: 12/08/22 13:30 SP TYPE: Bowel OTHR DR: Shruthi Arrington V Tissues: 1 - BIOPSY BOWEL 2 - BIOPSY BOWEL 3 - BIOPSY BOWEL 4 - BIOPSY BOWEL 5 - BIOPSY BOWEL 6 - BIOPSY BOWEL 7 - BIOPSY BOWEL 8 - BIOPSY BOWEL Procedures: GROSS AND MICRO LEVEL 4 Comments: [id number]
[2022-12-08] MEDS: metroNIDAZOLE 500 MG/100 ML BAG 100 MG IVPB (12:30)
[2022-12-08 12:44] VITALS: BP 131/78; PULSE 78; RESP 16; TEMP 36.2; O2SAT 98
--- NOTE | 2022-12-08 13:02 | W.ANESPOSTOP ---
Postoperative Evaluation Date, Time and Location Date Performed: 12/08/22 Time Performed: 13:03 Patient Location: Day Surgery Unit Vital Signs Most Recent Imported Vital Signs: Most Recent Vital Signs Temp Pulse Resp BP Pulse Ox 36.2 C L 78 16 131/78 98 12/08/22 12:44 12/08/22 12:44 12/08/22 12:44 12/08/22 12:44 12/08/22 12:44 Pain Score Most Recent Pain Score: Most Recent Pain Score Pain Level 0 12/08/22 12:44 Assessment Mental Status: Awake (Alert & Oriented to Patient Baseline) Airway and Respiratory Function: Patent airway with normal (patient baseline) respiratory exam Cardiovascular Function: Hemodynamically Stable Hydration Status: Adequately Hydrated Nausea & Vomiting: No Nausea or Vomiting Pain: Pt. Denies Any Pain Peripheral Nerve Block: Patient did not receive a nerve block
[2022-12-08 13:09] VITALS: BP 123/76; PULSE 74; RESP 16; TEMP 36.1; O2SAT 98
[2022-12-08] MEDS: CIPROFLOXACIN 400 MG/200 ML BAG 200 MG IVPB (13:26)
[2022-12-08 13:38] VITALS: BP 118/68; PULSE 78; RESP 16; TEMP 36.4; O2SAT 97
[2022-12-08 14:11] VITALS: BP 123/74; PULSE 84; RESP 16; TEMP 36.1; O2SAT 98
--- NOTE | 2022-12-08 16:51 | W.PM.DSUDISC ---
Date of service: 12/08/22 Time of Service: 16:54 Discharge Plan Disposition Patient Disposition: Home Condition: Good Discharge Details Reason For Visit: colon scope Attending Provider: Monique Rock Primary Care Provider: Shruthi Arrington V Home Meds and New Rx's Prescriptions: New metronidazole 500 mg tablet 500 mg PO TID 5 Days Qty: 15 0RF ciprofloxacin HCl [Cipro] 500 mg tablet 500 mg PO BID 5 Days Qty: 10 0RF Continued 5-hydroxytryptophan (5-HTP) [5-HTP] 100 mg capsule 100 mg PO BID ibuprofen 800 MG tablet 800 mg PO Q8H PRN FLEXERIL 10 MG tablet 10 mg PO DIRECTED magnesium 250 mg tablet 250 mg PO DAILY vitamin B complex Capsule 1 cap PO DAILY cyanocobalamin (vitamin B-12) [Vitamin B-12] 500 mcg tablet 500 mcg PO DAILY cholecalciferol (vitamin D3) 50 mcg (2,000 unit) capsule 50 mcg PO DAILY cyclobenzaprine 10 mg tablet 10 mg PO TID PRN L-Tyronsine 1,000 mg PO DAILY Patient Comments: Uses for PTSD Nac 2 cap PO TID PRN Patient Comments: Uses for PTSD Discontinued polyethylene glycol 3350 17 gram/dose powder 238 g PO ONCE Qty: 238 0RF Rx Instructions: take per colonoscopy instructions bisacodyl [Dulcolax (bisacodyl)] 5 mg tablet,delayed release (DR/EC) 5 mg PO ONCE Qty: 4 0RF Rx Instructions: take per colonoscopy instructions Discharge Instructions Additional Instructions: DSU Colonoscopy Post-Op Instructions Instructions for Everyone who is given Anesthesia: For your safety, please do the following for the next twenty-four (24) hours: *Do Not operate a motor vehicle (car, truck, motorcycle, etc.) *Do Not drink alcoholic beverages or use any recreational drugs for the first 24 hours or while taking pain medications. The medications in your body may have a reaction that can be dangerous. *Do Not make any important decisions or sign any important papers. Findings: 20+ polyps Follow up: W/ Dr. Rock in 2 wks time 12/24 1:30pm -No asiprin or Ibuprofen for 2 weeks. Tylenol is OK. -yogurt daily while on antibiotics 1. No lifting over 20 pounds or strenuous activity for the first 72 hours after your procedure. After 72 hours there are no restrictions on your activity but you may feel fatigued for a few days. 2. After you arrive home you may have a light meal and return to your normal diet as you can tolerate it without feeling sick to your stomach. 3. You may have a bloated, gaseous feeling in your belly (abdomen) after a colonoscopy. Passing gas and belching will help. Walking or lying down on your left side with your knees flexed may relieve the discomfort. Call the office at [phone] (Office) or [phone] (Hospital) right away if you notice any of the following: a.Vomiting of blood or ?coffee ground stools?. b.Rectal bleeding 1Tbsp, blood clots or continuous bleeding. c.Severe belly (abdominal) pain. d.A hard distended belly (abdomen) and an inability to pass gas. 4. Please don?t expect to have a normal BM (bowel movement) for 2-3 days after your procedure. 5. If there are questions regarding the findings of your procedure, please contact your doctor 6. If you are unable to contact your doctor with a problem, contact the hospital at [phone]. 7. Continue all your regular medications unless directed otherwise. I understand the above instructions and have no questions. Signature of Patient or Adult Escort Name of Responsible Adult Escort Signature of Nurse Date/Time Stand Alone Forms: Anesthesia Discharge Mariely (DSU) Activity:: see above Diet:: see above Discharge Data Discharge Date/Time-TO BE ENTERED AT DEPARTURE: 12/08/22 14:58 Discharge Comment: pt d/c from [facility] DS: Diagnosis Discharge Diagnosis (1) Tubulovillous adenoma: Status: Acute (2) Diarrhea: Status: Acute (3) Anxiety with depression: (4) ADHD: (5) Allergic rhinitis: (6) Borderline personality disorder: (7) Osteoarthritis: (8) Prediabetes: (9) PTSD (post-traumatic stress disorder): (10) Sleep apnea: (11) Adenomatous polyps: Status: Acute Asessment and Plan: The patient is seen and examined after their colonoscopy.? The patient has been able to pass gas.? They are not having abdominal pain.? They have been able to tolerate liquids and a snack.? They do not have any nausea or vomiting.? They are not having any chest pain or shortness of breath.??? They are not having any rectal bleeding. Their vital signs have been stable-see nursing notes. We discussed findings during their colonoscopy, and any biopsies that were done/polyps that were removed. The patient will be sent a letter with any biopsy results, and when to repeat the colonoscopy.-see discharge instructions. Patient was given explicit instructions to follow-up regarding colonoscopy-refer to discharge instructions.? We reviewed resumption of medications.Patient verbalized understanding and discharged in stable and satisfactory condition- See nursing notes. Patient will follow-up in 2 weeks time -Patient was examined in the postoperative. She did receive IV Cipro and Flagyl. She will be discharged on antibiotics due to the number of polyps she underwent today and had no abdominal pain, distention, bloating, or bleeding. Her vital signs are stable
== END 2022-12-08 14:58 | disposition home or self-care (01) ==
PROVIDERS: PCP Family Medicine; Visit Provider Surgery
PROC: 0DJD8ZZ Inspection of Lower Intestinal Tract, Via Natural or Artificial Opening Endoscopic (ICD-10-PCS; CPT 45378; principal; 2022-12-08 10:45)
DX: Z09 Encounter for follow-up examination after completed treatment for conditions other than malignant neoplasm (principal); D12.5 Benign neoplasm of sigmoid colon; K64.8 Other hemorrhoids; K57.30 Diverticulosis of large intestine without perforation or abscess without bleeding; Z86.010 Personal history of colon polyps; D12.4 Benign neoplasm of descending colon; D12.0 Benign neoplasm of cecum
CPT/HCPCS: 45385; 45380; 88305; J0744; J2001; J2704

== ENCOUNTER → 2022-12-24 13:15 | Outpatient (BNVA) | payer MEDICARE, MEDICAID, SELFPAY | PROVIDERS: PCP Family Medicine; Referring Provider Family Medicine; Visit Provider Surgery | DX: Z48.815 Encounter for surgical aftercare following surgery on the digestive system (principal); D12.6 Benign neoplasm of colon, unspecified; D36.9 Benign neoplasm, unspecified site; R19.7 Diarrhea, unspecified | CPT/HCPCS: 36415; 99214 ==

== ENCOUNTER 2022-12-24 14:36 | Outpatient (REF) | payer MEDICARE, MEDICAID, SELFPAY ==
[2022-12-24 15:17] LABS: Abs Immature Grans 0.05 10^3/uL (0.0-0.06); Absolute Basophil Count 0.05 10^3/uL (0.0-0.2); Absolute Eosinophil Count 0.25 10^3/uL (0.0-0.7); Absolute Lymphocyte Count 2.06 10^3/uL (1.2-3.4); Absolute Monocyte Count 0.79 10^3/uL (0.1-0.8); Absolute Neutrophil Count 5.66 10^3/uL (1.2-6.7); Basophils % 0.6; Eosinophils % 2.8; HCT 41.7 % (36.0-46.0); Immature Grans % 0.6; Lymphocytes % 23.3; MCH 28.6 pg (27.0-33.0); MCHC 33.6 % (32.0-36.0); MCV 85 fL (80-95); MPV 9.4 fL (8.0-11.0); Monocytes % 8.9; Neutrophils % 63.8; Platelet Count 358 10^3/uL (130-400); RBC 4.89 10^6/uL (3.93-5.22); RDW 11.9 % (11.7-14.6); RDW-SD 36.6 fL; WBC 8.86 10^3/uL (4.4-10.8)
[2022-12-24 15:27] LABS: C-Reactive Protein 2.84 mg/dL (0.0-0.3)
== END 2022-12-24 14:37 | disposition home or self-care (01) ==
LOC: LBN 14:36
PROVIDERS: PCP Family Medicine; Visit Provider Surgery
DX: D12.6 Benign neoplasm of colon, unspecified (principal); K59.4 Anal spasm; R19.7 Diarrhea, unspecified; Z48.89 Encounter for other specified surgical aftercare; R79.82 Elevated C-reactive protein (CRP)
CPT/HCPCS: 85025; 86140

== ENCOUNTER → 2023-02-19 00:45 | Outpatient (CLI) | payer MEDICARE, MEDICAID, SELFPAY ==
--- NOTE | 2023-02-19 | DI.CT_ITS ---
Exam(s) CT ABDOMEN PELVIS W EXAM: CT ABDOMEN PELVIS W CLINICAL HISTORY: ABD/PELVIC MASS SWELLING RLQ R19.[address] 10/09/21 TECHNIQUE: Imaging Protocol: Axial computed tomography images with coronal and sagittal reformatted images were created and reviewed CONTRAST MATERIAL: Intravenous: Omnipaque 350 Contrast volume:100 mL Oral: Yes COMPARISON: CT CT ABDOMEN PELVIS W from 10/09/2021 FINDINGS: ABDOMEN: Lung Bases: Normal where visualized. Liver: Fatty infiltration of the liver. There is again seen an area of decreased attenuation adjacen t to the gallbladder fossa in the left lobe of the liver. It is stable and measures 2 x 1.4 cm. No new hepatic lesions are seen. Portal, Superior Mesenteric, and Splenic Veins: Unremarkable. Gallbladder and Biliary Tract: No radiodense calculus or dilation. Pancreas: Normal density, no abnormal calcifications or inflammatory process. Spleen: Normal. Adrenals: No masses seen. Kidneys: Normal size, contour and axis. No radiodense stones or obstructive uropathy. No masses seen. Abdominal Aorta: Abdominal portion non-dilated. Atherosclerosis. Bowel: There is diverticulosis seen in the colon without evidence of acute diverticulitis. There is thickening of the wall of the base of the cecum and terminal ileum. There is now communication with the adjacent iliopsoas muscle. There is a multiloculated fluid collection seen in the right lower qu adrant involving the right the adjacent abdominal wall and right iliopsoas muscle. The largest compo nent of the fluid collection is seen in the psoas muscle and measures 4.6 x 3 by 6 cm. There is no e vidence of bowel obstruction. Peritoneal Cavity: No ascites, collection or mesenteric inflammatory response. No free air. Lymph Nodes: There are enlarged lymph nodes seen in the right lower quadrant. The largest lymph node measures 1 x 1.4 cm. Bones: Within normal limits for the patient's age. There is a stable sclerotic focus in the right pu bic bone. Soft Tissues: Unremarkable. PELVIS: Bladder: Symmetric distention, no gross wall thickening. Reproductive Organs: There are multiple fibroids seen within the uterus. Lymph Nodes: Please see the above discussion. Bones: Within normal limits for the patient's age. IMPRESSION: 1. Soft tissue mass seen in the base of the cecum with extension into the adjacent terminal ileum amrit picious for neoplasm. There is communication with a multiloculated fluid collection in the right low er quadrant which involves the adjacent anterior abdominal wall and the iliopsoas muscle. Abscesses versus metastatic disease. Infection/inflammation cannot be entirely excluded. 2. Mildly enlarged lymph nodes in the right lower quadrant. 3. Stable hypodense lesion seen in the left lobe of the liver. 4. Colonic diverticulosis without evidence of acute diverticulitis. 5. Fibroid uterus. 6. Findings were discussed with Hina John at 11:45 a.m. on 02/19/2023. RADIATION DOSE DELIVERED: 955.6mGy.cm Total DLP DATA REPOSITORY: All CT scans at this facility are submitted to the National Radiology Data Registry (NRDR) Dose Index Registry (DIR) with the [employer] (ACR). RADIATION OPTIMIZATION: All CT scans at this facility use at least one of these dose optimization te chniques: automated exposure control; mA and/or kV adjustment per patient size (includes targeted exa ms where dose is matched to clinical indication); or iterative reconstruction.
--- OUTSIDE RECORDS SUMMARY | 2023-02-19 00:47 | XMS_ITS | Continuity of Care Document ---
Author Name Unknown Organization [facility] Address [address] [place] [address] Care Team Providers Care Legal Investigator Name Role Phone JUMA DONALDSON Primary Care Physic keyonna Encounter [facility] FIN NBR [id number] Date(s): 10/28/22 - 10/28/22 [facility] [address] [place] [address]- [place] Encounter Diagnosis Encounter for screening mammogram for malignant neoplasm of breast(Final) - Discharge Disposition: Home or Self Care Attending Physician: JUMA DONALDSON Admitting Physician: JUMA DONALDSON Referring Physician: JUMA DONALDSON Results Radiology Reports * Exam Date Time Procedure Performing Provider Status 10/28/22 1:17 PM MG Mammo Screening Bilateral Igor Darby; Enzo (Verified) Notes: (MG Mammo Screening Bilateral) Reason For Exam: SCREENING MG Mammo Screening Bilateral EXAM DESCRIPTION: MG Mammo Screening Bilateral 10/28/2022 INDICATION: SCREENING COMPARISON: Prior outside facility screening mammogram studies dated 08/14/2020 and 03/28/2014 BREAST DENSITY: There are scattered areas of fibroglandular density. FINDINGS: MLO and CC views were performed with digital breast tomosynthesis. Images were reviewed using computer aided detection. No asymmetry, architectural distortion or suspicious grouping of calcifications to suggest malignancy in either breast. ASSESSMENT: No mammographic evidence of malignancy. Negative. BI-RADS category 1. RECOMMENDATION: Screening mammography in 1 year JOB #: [id number] Final Signed by: Dao Portillo MD Signed (Electronic Signature): 10/28/2022 3:53 pm MG Breast - bilateral Screening * Dao Portillo MD: VERIFY, VERIFY Event Display: Report EXAM DESCRIPTION: MG Mammo Screening Bilateral 10/28/2022 INDICATION: SCREENING COMPARISON: Prior outside facility screening mammogram studies dated 08/14/2020 and 03/28/2014 BREAST DENSITY: There are scattered areas of fibroglandular density. FINDINGS: MLO and CC views were performed with digital breast tomosynthesis. Images were reviewed using computer aided detection. No asymmetry, architectural distortion or suspicious grouping of calcifications to suggest malignancy in either breast. ASSESSMENT: No mammographic evidence of malignancy. Negative. BI-RADS category 1. RECOMMENDATION: Screening mammography in 1 year JOB #: [id number] Final Signed by: Dao Portillo MD Signed (Electronic Signature): 10/28/2022 3:53 pm Patient Care team information Care Team Personnel Name: JUMA DONALDSON Position: No Access Member Role: Primary Care Physician Address: Address: [address] [place] [address] [address] [place] [address]- [place]
--- OUTSIDE RECORDS SUMMARY | 2023-02-19 00:47 | XMS_ITS | Continuity of Care Document ---
Author Name Unknown Organization [facility] Address [address] [place] [address] Care Team Providers Care Molding Room Supervisor Name Role Phone Hina Johnson Primary Care Physician [facility] Date(s): 11/03/22 - 11/03/22 [facility] [address] [place] [address] Encounter Diagnosis Obstructive sleep apnea syndrome(Discharge Diagnosis) - 11/03/22 Bruxism(Discharge Diagnosis) - 11/03/22 Discharge Disposition: Home or Self Care Attending Physician: Mai Mack MD Allergies, Adverse Reactions, Alerts No Known Medication Allergies Substance Reaction Severity Status clarithromycin Urticaria Unknown Active Functional Status 11/03/22 Other exposure to Infectious Disease Non e Medications amoxicillin-clavulanate 875 mg-125 mg oral tablet amoxicillin (as trihydrate) 1 tab, Oral, BID Start Date: 11/07/21 Status: Ordered cholecalciferol 2000 intl units oral capsule See Instructions, 0 Refill(s) Start Date: 11/05/21 Status: Ordered ibuprofen 800 mg oral tablet 800 mg = 1 tab, Oral, TID, PRN other (see comment), as needed Start Date: 11/07/21 Status: Ordered magnesium gluconate 500 mg oral tablet 500 mg = 1 tab, Oral, Daily, # 90 tab, 3 Refill(s), Pharmacy: [id number] Start Date: 05/25/22 Stop Date: 05/20/23 Status: Ordered NAC 600 mg oral capsule See Instructions, PRN mood, Take 2 capsules by mouth every morning and take 2 capsules daily in theafternoon/early evening Start Date: 11/07/21 Status: Ordered Vitamin B Complex oral capsule See Instructions, 1 tab in the AM daily for 90 days., # 90 tab, 3 Refill(s), Pharmacy: [id number] Start Date: 11/11/21 Status: Ordered Vitamin B12 500 mcg oral tablet 500 mcg = 1 tab, Oral, Daily, in am, # 90 tab, 3 Refill(s), Pharmacy: [id number] Start Date: 11/11/21 Status: Ordered Vitamin D3 50 mcg (2000 intl units) oral tablet, chewable See Instructions, 1 to 2 capsules daily., # 180 cap, 3 Refill(s), Pharmacy: [id number] Start Date: 11/11/21 Status: Ordered Problem List Condition Confirmation Course Effective Dates Status H ealth Status Informant Bruxism Confirmed Active Depressive disorder Confirmed Active Elevated blood-pressure reading without diagnosis of hypertension Confirmed Active Lack of energy Confirmed Active Obstructive sleep apnea syndrome Confirmed Active Posttraumatic stress disorder Confirmed Active Snoring Confirmed Active Vitamin D deficiency Confirmed Active Vital Signs Most recent to oldest [Reference Range]: 1 Peripheral Pulse Rate [60-100 bpm] 88 bp m (11/03/22 8:49 AM) Blood Pressure [90-140/60-90 mmHg] 149/8 5mmHg *HI* (11/03/22 8:49 AM) Weight 79.38 kg (11/03/22 8:49 AM) Weight Measured (lbs) 175.003 lb (11/03/22 8:49 AM) Height 154 cm (11/03/22 8:49 AM) Height/Length Measured (inches) 60.63 in ch (11/03/22 8:49 AM) BSA Measured 1.84 m2 (11/03/22 8:49 AM) Body Mass Index 33.47 kg/m2 (11/03/22 8:49 AM) Social History Social History Type Response Tobacco Former tobacco user Tobacco Use:. Sex Female Progress note * Scar Bustos: PERFORM Event Display: Progress Note - Physician Authored Date: [id number] Physician Outpatient Note * Mai Mack MD: PERFORM, MODIFY Event Display: Office Clinic Note Physician Authored Date: [id number] BLANCA LOPEZ :1955 Age:67 years Sex:Female Visit Date:11/03/2022 Primary Care Physician: Menapace-Alvaro, Hina MACHINE CARTON MARKER-C Chief Complaint cc: [facility]; CPAP FACE TO FACE??MCR ?? 1 year cpap compliance f/u History of Present Illness She is spending her [place], returns to [place] end of August. She feels much better doing this because of the sunshine. 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 ?? Pt has been exclusively using her PAP machine, has some dental work done and her oral device no longer fits so she isnt using it. she keeps as a 12V battery with her in case she loses power and can continue using her CPAP. Review of Systems A 10-point REVIEW OF SYSTEM was obtained and reviewed, includes CONSTITUTIONAL, EYES, NOSE, THROAT,RESPIRATORY, HEART, GASTROINTESTINAL, UROLOGIC, MUSCULOSKELETAL, PSYCHIATRY, SKIN systems. Pertinent symptoms are discussed in history, otherwise negative. Physical Exam Vitals & Measurements HR:??88??(Peripheral)?? BP:??149/85?? SpO2:??97%?? HT:??154??cm?? WT:??79.38??kg?? BMI:??33.47?? BSA:??1.84?? General:??well appearing, appearing stated age, no acute distress,??obese??build HEENT: atraumatic skull, anicteric RESPIRATORY: quiet respiration, able to speak in full sentences without dyspnea, no accessory muscle use SKIN: no facial skin rash, no facial skin lesions PSYCHIATRIC: well groomed, fluent speech, good insight, linear thought process, good eye contact,balanced??affect NEUROLOGIC: alert, oriented, symmetric facial expression Clinic Assessment/Plan 1.??Obstructive sleep apnea syndrome??G47.33 Actions: FUTURE - Follow-Up Appointment Request KENAN, *Est. 04/05/24 +/- 28 days, Future Order, feb 2024 cpap follow up, In [facility] COMPLETED - Referral Management, Medical Service: Other, Reason: Mask refit. Pt thinks she's having eye puffiness with the her headgear Dreamwwear Nasal. she just got this in mail, did not open. would like to return and try different mask. Show her AirFit N30i nasal mask and refit... ?? 2.??Bruxism??F45.8 Actions: FUTURE - Follow-Up Appointment Request KENAN, *Est. 04/05/24 +/- 28 days, Future Order, feb 2024 cpap follow up, In [facility] COMPLETED - Referral Management, Medical Service: RM Other, Reason: Mask refit. Pt thinks she's having eye puffiness with the her headgear Dreamwwear Nasal. she just got this in mail, did not open. would like to return and try different mask. Show her AirFit N30i nasal mask and refit... ?? I provided greater than??30??minutes in the care of this patient including chart review and documentation, more than half the time was spent in [id number] counseling. ?? Blanca Lopez is a pleasant 67 year old female,??retired [employer], with past medical history of Bruxism, PTSD, Anxiety, Major Depression and Obstructive Sleep Apnea who returns for follow up of cpap therapy/oral appliance therapy.? Clinical Data Reviewed:? [place] Sleepiness Scale:?? 11/04??(11/03/2022) [place] Sleepiness Scale: 01/04 (11/11/2021) ?? Machine Download Data:??Respironics Dreamstation Auto CPAP (Refurbished for Recall)?? PAP Settings: ??Auto CPAP?? 5 to 14?? CmH2O Date Range: ?10/04/22 - 11/02/22 Days with Usage >=4 hours: ??100% Avg Usage per Day Used: ??9hr 25min Mean/Median Pressure: ?7.5 90th-tile/95th-tile Pressure: ??10.2?? Avg Time in Large Leak Daily?36s Avg Treatment ??AHI: ??4.2/hr ?? Sleep Clinical Timeline:?? Due to snoring, witnessed apneas, choking/gasping, unrefreshing sleep and daytime fatigue/sleepiness, restless sleep, infrequent RLS, crowded upper airway anatomy, possible hypnagogic hallucinations,patient had Diagnostic Polysomnogram on 07/16/2014 (wt 154 lbs / bmi 29) shwoing Moderate ObstructiveSleep Apnea associated with significant nocturnal hypoxemia. Underestimated due to use of 4% desat criteria for hypopnea scoring. AHI 26.2/hr. RDI 42.7/hr. REM AHI 26.2/hr. REM RDI 39.3/hr. Supine AHI 31/hr. L Lateral AHI 24/hr. R Lateral AHI 16/hr. Venkatesh SpO2 77%, Mean SpO2 93% and 11 Minutes withSpO2 less than 88%, all on room air. Arousal index 22/hr. PLM index 1.9/hr. PLM Arousal index 0.5/hr. No significant arrhythmias, Kevyn-Amos Respirations, parasomnias, or abnormalities on limited EEG montage. ?? Patient had oral appliance TAP fitted via Dr Boone. She bit through front bar on appliance. Previously, she went through several mouth guards. She saw Dr Boone in June 2016, and he made her strong appliance, the Somnodent Iza- Flex, documented by Dr Boone's letter to be adjusted to 10 90-deg turns. Last documented at 15 90 degree turns during clinic visit on 10/26/2016 with Nancy Diego REHABILITATION COORDINATOR. ?? Oral Appliance Adjustment Polysomnogram on (wt 173 lbs / bmi 32.7) started at 19 clicks on Somnodent IZA, which appears to be the setting that the patient came in with, and adjusted in 5 turns (as on this particular appliance, there was no way to do clicks, only up-and-down turns to adjust the appliance) increments for snoring to final setting of 34 turns. The 34 turns setting was successful in eliminating all significant events including during left and right-sided REM sleep and adequate oxygen saturation was maintained. The setting of 24 turns was successful in supine non-REM and left-sided REM sleep, but still was associated with snoring and left-sided non-REM sleep and so was the 29 turns setting. There was no supine REM sleep seen on this study. The patient???s overall AHI for the study was: AHI = 0.4/hr. RDI = 2.0/hr. REM Related AHI: 0.7/hr. RDI: 2.2/ hr. SaO2 Venkatesh: 87% on room air. 0.0 consecutive minutes were spent on oxygen saturation less than 88%. Mean oxygen saturation: 94% on room air. Arousal index: 8/hr. PLM index: 3.9/hr. PLM arousal index: 2.8/hr ?? Patient transitioned to my care on on 02/04/17. Given indeterminate oral appliance settings and patient reporting some intolerance (jaw pain) of Somnodent IZA Flex and concern about longevity of second oral appliance, we made mutual decision to pursue trial of auto CPAP therapy, started 5-07mgU6H. V isit on 04/07/17, patient was tolerating Auto CPAP 5-05dsT0Y and felt good benefit. She is waking up feeling better rested on cpap than oral appliance. ?? Titration Polysomnogram on 03/30 (wt 180 lbs / bmi 32.9) tested cpap 5 to 7cm. Optimal pressurenot found due to minimal sleep and ABSENT supine REM sleep. However all tested pressures resolved events for lateral NREM and lateral REM sleep. Adequate oxygenation was maintained. Recommendation toset CPAP at 10cm or auto 5 to 12cm. alternatively, auto cpap 5 to 7cm may be used if patient avoids supine sleep. Moderate elevated PLM index without significant arousals. Arousal index 7/hr. PLM index 15.4/hr PLM Arousal index 2.7/hr No significant arrhythmias, Kevyn-Amos Respirations, parasomnias, or abnormalities on limited EEG montage. Dreamwear nasal mask in small was good fit. ? Oral Appliance Adjustment PSG on 02/28/20 (Wt 190 lbs/bmi 36) showed: 1. Oral appliance adjustment for Moderate Obstructive Sleep Apnea with Somnodent SuadFlex. overall AHI 0.5/hr and RDI 2.6/h on all tested positions. 2. Oral appliance titration was started at 74 quarter turns (1.5mm) and adjusted in 8 quarter turnsincrements for few RERAs and residual snoring to final setting of 82 turns (5mm). There was additional attempt to further advance to maximum position of 8mm position at 3:30am but patient could not fall back asleep, so no sleep observed at the maximum position. 3. Both 1.5mm and 5mm positions resolved significant respiratory events including during lateral NREM, lateral REM, and supine NREM sleep. There was intermittent residual snoring, sometimes quite loud. Supine REM sleep was not seen during this study. 4. Adequate oxygen saturation was maintained on all tested positions. 5. Mild Periodic Limb Movement Disorder with significant arousals. ?? 11/03/2022: No longer using oral appliance, she had dental work and device no longer fits, exclusively using CPAP with good benefit/compliance. note undereye puffiness and would like to try different mask; requested mask refit DME ?airfit n30i. ?? Current Settings:??apap 5 to 14cm via Dreamwear nasal mask in small? DME: [facility] ? Today's Assessment and Plan: Download data reviewed and discussed with the patient. Perfect compliance, excellent reduction in AHI tx AHI 4.2/hr. Patient has big improvement in her mood and quality of life since starting to spend hansen in [place]. complaining of eye puffiness since pt reports the design of the mask changed, says there is a hard plastic edge where there used to be a fabric liner. Pt may like [employer]med Airfit N30i. order sent to [facility] for mask refit, she recently received new supplies but they are unopened, try to return and exchange. also recommend gentle facial massage for lymphatic drainage. Receiving her B-complex and magnesium supplement refills from her primary care office at [facility]. PCP is JANELLE Dodge. ?? Follow up: 1.5 years or sooner if needed. ?? Remote Scribed by??Bobo Davies ?? Problem List/Past Medical History Ongoing Bruxism Depressive disorder Elevated blood-pressure reading without diagnosis of hypertension Lack of energy Obstructive sleep apnea syndrome Posttraumatic stress disorder Snoring Vitamin D deficiency Historical No qualifying data Medications What How Much When Instructions Unchanged acetylcysteine (NAC 600 mg oral capsule) See instructions Take 2 capsules by mouth every morning and take 2 capsules daily in the afternoon/ early evening, As needed for mood ?? Unchanged amoxicillin-clavulanate (amoxicillin-clavulanate 875 mg-125 mg oral tablet) 1 tab Oral (given by mouth) 2 times a day Unchanged cholecalciferol (cholecalciferol 2000 intl units oral capsule) See instructions Unchanged cholecalciferol (Vitamin D3 50 mcg (2000 intl units) oral tablet, chewable) See instructions 1 to 2 capsules daily. ?? Unchanged cyanocobalamin (Vitamin B12 500 mcg oral tablet) 1 tab Oral (given by mouth) Every day in am ?? Unchanged ibuprofen (ibuprofen 800 mg oral tablet) 1 tab Oral (given by mouth) 3 times a day as needed for other (see comment) as needed ?? Unchanged magnesium gluconate (magnesium gluconate 500 mg oral tablet) 1 tab Oral (given by mouth) Every day Duration: 90 Days Unchanged multivitamin (Vitamin B Complex oral capsule) See instructions 1 tab in the AM daily for 90 days. ?? Allergies No Known Medication Allergies clarithromycin??(Urticaria) Social History Electronic Cigarette/Vaping Electronic Cigarette Use: Never. Tobacco Former tobacco user Tobacco Use:. Electronically Signed on 11/03/22 09:52 PM Mai Mack MD Reviewed by: Mai Mack MD Patient Care team information Care Team Personnel Name: Hina Johnson-C Position: No Access Member Role: Primary Care Physician Address: Address: [address] [place] [id number]- Care Team Related Persons Name: FELIX BRADY
[2023-02-19 09:28] LABS: CREATININE 0.8 mg/dL (0.55-1.02); Estimated GFR 81.72 (mL/min/1.73m2)
[2023-02-19] MEDS: Normal Saline - Diluent 50 ML VIAL IJ (11:27)
[2023-02-19] MEDS: Omnipaque 350 MG/ML 100 ML BTL IJ (11:28)
== END ==
PROVIDERS: Radiology Diagnostic Ultrasound; PCP Family Medicine; Visit Provider Nurse Practitioner Family
DX: K76.0 Fatty (change of) liver, not elsewhere classified (principal); K57.30 Diverticulosis of large intestine without perforation or abscess without bleeding; R59.0 Localized enlarged lymph nodes; D25.9 Leiomyoma of uterus, unspecified
CPT/HCPCS: 74177; 82565; J3490

== ENCOUNTER 2023-04-09 18:17 | Day surgery (SDC) | payer MEDICARE, SELFPAY | END 2023-04-09 18:18 | disposition home or self-care (01) | LOC: SUR 18:17 | PROVIDERS: PCP Family Medicine; Visit Provider Surgery | DX: Z53.8 Procedure and treatment not carried out for other reasons (principal) ==

== ENCOUNTER → 2023-04-29 02:25 | Outpatient (CLI) | payer MEDICARE, MEDICAID, SELFPAY ==
--- NOTE | 2023-04-29 | DI.MRI_ITS ---
Exam(s) MR ABDOMEN WO/W EXAM: MR ABDOMEN WO/W CLINICAL HISTORY: ADENOCARCINOMA APPENDIX C18.[address] TECHNIQUE: Multiplanar multisequence MRI was performed with both pre and post contrast infused seque nces. Contrast injected sequences were performed following IV injection of 18 cc of Dotarem. COMPARISON: CT CT ABDOMEN PELVIS W from 10/09/[address] ABDOMEN PELVIS W from 02/19/2023 FINDINGS: VISUALIZED LUNG BASES: No pleural effusions evident. There is no ascites evident. LIVER: The area of concern above the gallbladder fossa in the medial aspect of the right hepatic lobe exhibits benign signal characteristics, measuring approximately 2 x 1.5 cm. It is most probably an a michael of focal fatty infiltration, as opposed to an ominous lesion. There are no other focal areas of s ignificance in the liver. BILIARY: Gallbladder is contracted. No obvious gallstones nor dilatation of the biliary tree. The CBD is not dilated. PANCREAS: There is no evidence of pancreatic mass nor dilatation of the pancreatic duct. SPLEEN: Spleen is not enlarged and there are no intrasplenic lesions.Splenic and portal veins are pat ent ADRENALS: There are no significant adrenal masses. KIDNEYS: No solid renal masses. No hydronephrosis.No cysts evident. ABDOMINAL AORTA: Not enlarged and there is no significant para-aortic adenopathy. ANTERIOR ABDOMINAL WALL/GI: There is no evidence of significant anterior abdominal wall hernia in the field of view of this study.Is no evidence of obvious bowel obstruction. OSSEOUS: There are no lytic osseous lesions in the field of view of this study. IMPRESSION: 1. The finding in the medial right hepatic lobe of the liver just above the gallbladder fossa has blake ign appearance and is most probably focal fatty infiltration. More concerning lesions are less likely . There are no additional focal findings in the liver. Recommend repeat study in 6 months to ensure s tability, earlier if clinically indicated. DATA REPOSITORY:
[2023-04-29] MEDS: Normal Saline - Diluent 50 ML VIAL 25 ML IJ (14:56)
[2023-04-29] MEDS: Gadoterate meglumine 20 ML VIAL 18 ML IVP (14:57)
--- NOTE | 2023-04-29 17:24 | DI.VRAD_ITS ---
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 Contrast material: DOTAREM; Contrast volume: 18 ml; Contrast route: INTRAVENOUS (IV); COMPARISON: CT ABDOMEN PELVIS W 02/19/2023 11:[address] abdomen and pelvis dated 10/09/2021. FINDINGS: Heart: The heart is normal in size. No pericardial effusion. Liver: Diffuse fatty infiltration throughout the liver. A lesion is again seen centrally within the junction of the medial segment of the left hepatic lobe and anterior segment of the right hepatic lobe, measuring 1.4 x 2.0 cm. This may represent an area of focal fatty infiltration adjacent area of fatty sparing. This is stable when compared to the prior studies dating back to 10/09/2021. Otherwise, no abnormal enhancement or mass within the liver. Gallbladder and bile ducts: The gallbladder is contracted. No stones. No pericholecystic fluid or gallbladder wall thickening. No bile duct dilatation. Pancreas: The pancreas is normal appearance. No pancreatic ductal dilatation. Spleen: The spleen is normal appearance. Adrenal glands: The bilateral adrenal glands are normal appearance. Kidneys and ureters: The bilateral kidneys are normal appearance. No hydroureteronephrosis. Stomach and bowel: Visualized stomach and intestines are unremarkable. Intraperitoneal space: No free fluid. Vasculature: The abdominal aorta is normal in caliber without aneurysm. Lymph nodes: No lymphadenopathy within the abdomen. No lymphadenopathy within the upper abdomen. Bones/joints: No acute osseous abnormality. Soft tissues: Unremarkable. IMPRESSION: 1.4 x 2.0 cm lesion centrally within the liver, stable when compared to prior studies dating back to 10/09/2021. Overall, this is favored represent a benign process such as focal fatty infiltration with adjacent fatty sparing. An adenoma or FNH is less favored. A follow-up MRI in 3-6 months can be performed to ensure continued stability, if clinical interest dictates. Dictated and Authenticated by: Theresa Jiménez MD. Ordering:SARAVANAN Reed MD
== END ==
PROVIDERS: PCP Family Medicine; Visit Provider Internal Medicine Hematology & Oncology
DX: C18.1 Malignant neoplasm of appendix (principal)
CPT/HCPCS: 36591; 74183; 80053; 82378; 85025

== ENCOUNTER 2023-05-13 01:43 | Outpatient (RCR) | payer MEDICARE, MEDICAID, SELFPAY ==
[2023-04-18] MEDS: Normal Saline Flush 10 ML SYR IVP (06:51)
[2023-04-18] MEDS: Heparin 500 UNITS/5 ML SYRINGE IV (06:52)
[2023-04-29] MEDS: Normal Saline Flush 10 ML SYR IVP (13:16)
[2023-04-29 13:32] LABS: Abs Immature Grans 0.02 10^3/uL (0.0-0.06); Absolute Basophil Count 0.05 10^3/uL (0.0-0.2); Absolute Eosinophil Count 0.34 10^3/uL (0.0-0.7); Absolute Lymphocyte Count 2.27 10^3/uL (1.2-3.4); Absolute Monocyte Count 0.76 10^3/uL (0.1-0.8); Absolute Neutrophil Count 3.58 10^3/uL (1.2-6.7); Basophils % 0.7; Eosinophils % 4.8; HCT 38.6 % (36.0-46.0); HGB 13.4 g/dL (11.2-15.7); Immature Grans % 0.3; Lymphocytes % 32.3; MCH 29.2 pg (27.0-33.0); MCHC 34.7 % (32.0-36.0); MCV 84 fL (80-95); Monocytes % 10.8; Neutrophils % 51.1; Platelet Count 250 10^3/uL (130-400); RBC 4.59 10^6/uL (3.93-5.22); RDW 12.6 % (11.7-14.6); RDW-SD 37.3 fL; WBC 7.02 10^3/uL (4.4-10.8)
[2023-04-29 13:52] LABS: ALT 25 U/L (14-59); AST 15 U/L (15-37); Albumin 3.3 g/dL (3.4-5.0); Alkaline Phosphatase 80 U/L (46-116); Anion Gap 5.2 mmol/L (3-11); BUN 16 mg/dL (7-18); Bilirubin, Total 0.3 mg/dL (0.2-1.0); CO2 28.8 mmol/L (21.0-32.0); CREATININE 0.8 mg/dL (0.55-1.02); Calcium 9.4 mg/dL (8.5-10.1); Chloride 104 mmol/L (98-107); Estimated GFR 81.72 (mL/min/1.73m2); Glucose 114 mg/dL (74-106); Potassium 4.5 mmol/L (3.5-5.1); Sodium 138 mmol/L (136-145); Total Protein 7.2 g/dL (6.4-8.2)
[2023-04-30 19:40] LABS: CEA 8.3 ng/mL (See Note)
[2023-05-02 12:58] VITALS: BP 146/77; PULSE 86
[2023-05-02] MEDS: Normal Saline Flush 10 ML SYR IVP (13:00)
[2023-05-02] MEDS: Heparin 500 UNITS/5 ML SYRINGE IV (13:00)
[2023-05-13] MEDS: Normal Saline Flush 10 ML SYR IVP (13:23)
[2023-05-13 13:28] LABS: Abs Immature Grans 0.04 10^3/uL (0.0-0.06); Absolute Basophil Count 0.08 10^3/uL (0.0-0.2); Absolute Eosinophil Count 0.19 10^3/uL (0.0-0.7); Absolute Lymphocyte Count 2.34 10^3/uL (1.2-3.4); Absolute Monocyte Count 0.99 10^3/uL (0.1-0.8); Absolute Neutrophil Count 4.07 10^3/uL (1.2-6.7); Eosinophils % 2.5; HCT 39.5 % (36.0-46.0); HGB 13.9 g/dL (11.2-15.7); Immature Grans % 0.5; Lymphocytes % 30.4; MCH 29.7 pg (27.0-33.0); MCHC 35.2 % (32.0-36.0); MCV 84 fL (80-95); MPV 9.2 fL (8.0-11.0); Monocytes % 12.8; Neutrophils % 52.8; Platelet Count 219 10^3/uL (130-400); RBC 4.68 10^6/uL (3.93-5.22); RDW 13.4 % (11.7-14.6); RDW-SD 38.9 fL; WBC 7.71 10^3/uL (4.4-10.8)
[2023-05-13 13:48] LABS: ALT 42 U/L (14-59); AST 18 U/L (15-37); Albumin 3.5 g/dL (3.4-5.0); Alkaline Phosphatase 82 U/L (46-116); Anion Gap 6.4 mmol/L (3-11); BUN 19 mg/dL (7-18); Bilirubin, Total 0.3 mg/dL (0.2-1.0); CO2 29.6 mmol/L (21.0-32.0); CREATININE 0.9 mg/dL (0.55-1.02); Calcium 8.6 mg/dL (8.5-10.1); Chloride 102 mmol/L (98-107); Estimated GFR 70.95 (mL/min/1.73m2); Glucose 142 mg/dL (74-106); Sodium 138 mmol/L (136-145); Total Protein 7.3 g/dL (6.4-8.2)
[2023-05-13 23:14] LABS: CEA 6.2 ng/mL (See Note)
== END 2023-05-13 23:59 | disposition home or self-care (01) ==
LOC: INF 01:43
PROVIDERS: PCP Family Medicine; Visit Provider Internal Medicine Hematology & Oncology
DX: C18.1 Malignant neoplasm of appendix (principal); Z45.2 Encounter for adjustment and management of vascular access device
CPT/HCPCS: 36591; 80053; 96523; 82378; 85025

== ENCOUNTER 2023-06-10 14:00 | Outpatient (RCR) | payer MEDICARE, MEDICAID, SELFPAY ==
[2023-05-14 00:17] VITALS: BP 146/77; PULSE 86
[2023-05-16 12:34] VITALS: BP 155/78; PULSE 88; RESP 16; TEMP 36.5; O2SAT 98
[2023-05-27] MEDS: Normal Saline Flush 10 ML SYR IVP (13:02)
[2023-05-27 13:44] LABS: Abs Immature Grans 0.06 10^3/uL (0.0-0.06); Absolute Basophil Count 0.06 10^3/uL (0.0-0.2); Absolute Eosinophil Count 0.21 10^3/uL (0.0-0.7); Absolute Lymphocyte Count 2.14 10^3/uL (1.2-3.4); Absolute Monocyte Count 0.69 10^3/uL (0.1-0.8); Absolute Neutrophil Count 3.65 10^3/uL (1.2-6.7); Basophils % 0.9; Eosinophils % 3.1; HCT 35.2 % (36.0-46.0); HGB 12.1 g/dL (11.2-15.7); Immature Grans % 0.9; Lymphocytes % 31.4; MCH 29.5 pg (27.0-33.0); MCHC 34.4 % (32.0-36.0); MCV 86 fL (80-95); MPV 8.8 fL (8.0-11.0); Monocytes % 10.1; Neutrophils % 53.6; Platelet Count 220 10^3/uL (130-400); RDW 13.3 % (11.7-14.6); RDW-SD 40.6 fL; WBC 6.81 10^3/uL (4.4-10.8)
[2023-05-27 13:52] LABS: ALT 35 U/L (14-59); AST 20 U/L (15-37); Albumin 3.1 g/dL (3.4-5.0); Alkaline Phosphatase 76 U/L (46-116); Anion Gap 6.5 mmol/L (3-11); BUN 17 mg/dL (7-18); Bilirubin, Total 0.2 mg/dL (0.2-1.0); CO2 29.5 mmol/L (21.0-32.0); CREATININE 0.9 mg/dL (0.55-1.02); Chloride 105 mmol/L (98-107); Estimated GFR 70.95 (mL/min/1.73m2); Glucose 146 mg/dL (74-106); Potassium 4.1 mmol/L (3.5-5.1); Sodium 141 mmol/L (136-145)
[2023-05-27 23:48] LABS: CEA 4.5 ng/mL (See Note)
[2023-06-10 14:33] LABS: Abs Immature Grans 0.02 10^3/uL (0.0-0.06); Absolute Basophil Count 0.06 10^3/uL (0.0-0.2); Absolute Eosinophil Count 0.17 10^3/uL (0.0-0.7); Absolute Lymphocyte Count 1.98 10^3/uL (1.2-3.4); Absolute Neutrophil Count 4.51 10^3/uL (1.2-6.7); Basophils % 0.8; Eosinophils % 2.2; HCT 38.3 % (36.0-46.0); HGB 13.1 g/dL (11.2-15.7); Immature Grans % 0.3; Lymphocytes % 25.9; MCH 29.5 pg (27.0-33.0); MCHC 34.2 % (32.0-36.0); MCV 86 fL (80-95); MPV 8.8 fL (8.0-11.0); Monocytes % 11.8; Platelet Count 156 10^3/uL (130-400); RBC 4.44 10^6/uL (3.93-5.22); RDW 15.1 % (11.7-14.6); RDW-SD 43.9 fL; WBC 7.64 10^3/uL (4.4-10.8)
[2023-06-10 14:47] LABS: ALT 54 U/L (14-59); AST 24 U/L (15-37); Albumin 3.5 g/dL (3.4-5.0); Alkaline Phosphatase 79 U/L (46-116); Anion Gap 7.3 mmol/L (3-11); BUN 15 mg/dL (7-18); Bilirubin, Total 0.5 mg/dL (0.2-1.0); CO2 28.7 mmol/L (21.0-32.0); CREATININE 0.9 mg/dL (0.55-1.02); Calcium 9.1 mg/dL (8.5-10.1); Chloride 104 mmol/L (98-107); Estimated GFR 70.95 (mL/min/1.73m2); Glucose 135 mg/dL (74-106); Potassium 4.2 mmol/L (3.5-5.1); Sodium 140 mmol/L (136-145); Total Protein 7.2 g/dL (6.4-8.2)
[2023-06-10 22:15] LABS: CEA 5.7 ng/mL (See Note)
== END 2023-06-13 23:59 | disposition home or self-care (01) ==
LOC: INF 14:00
PROVIDERS: PCP Family Medicine; Visit Provider Internal Medicine Hematology & Oncology
DX: C18.1 Malignant neoplasm of appendix (principal); Z45.2 Encounter for adjustment and management of vascular access device
CPT/HCPCS: 36415; 36591; 80053; 96523; 82378; 85025

== ENCOUNTER 2023-07-08 03:27 | Outpatient (RCR) | payer MEDICARE, MEDICAID, SELFPAY ==
[2023-06-14 00:07] VITALS: BP 146/77; PULSE 86; RESP 16; TEMP 36.5
[2023-06-25] MEDS: Normal Saline Flush 10 ML SYR IVP (10:10)
[2023-06-25 10:26] LABS: Absolute Basophil Count 0.09 10^3/uL (0.0-0.2); Absolute Eosinophil Count 0.09 10^3/uL (0.0-0.7); Absolute Lymphocyte Count 1.72 10^3/uL (1.2-3.4); Absolute Monocyte Count 0.88 10^3/uL (0.1-0.8); Absolute Neutrophil Count 7.39 10^3/uL (1.2-6.7); Basophils % 0.9; Eosinophils % 0.9; HCT 39.5 % (36.0-46.0); HGB 13.2 g/dL (11.2-15.7); Immature Grans % 1.9; Lymphocytes % 16.6; MCH 29.7 pg (27.0-33.0); MCHC 33.4 % (32.0-36.0); MCV 89 fL (80-95); MPV 9.3 fL (8.0-11.0); Monocytes % 8.5; Neutrophils % 71.2; Platelet Count 179 10^3/uL (130-400); RBC 4.44 10^6/uL (3.93-5.22); RDW 14.9 % (11.7-14.6); RDW-SD 48.5 fL; WBC 10.37 10^3/uL (4.4-10.8)
[2023-06-25 10:49] LABS: ALT 55 U/L (14-59); AST 26 U/L (15-37); Albumin 3.4 g/dL (3.4-5.0); Alkaline Phosphatase 79 U/L (46-116); Anion Gap 9.6 mmol/L (3-11); BUN 13 mg/dL (7-18); Bilirubin, Total 0.5 mg/dL (0.2-1.0); CO2 28.4 mmol/L (21.0-32.0); CREATININE 0.8 mg/dL (0.55-1.02); Calcium 9.2 mg/dL (8.5-10.1); Chloride 103 mmol/L (98-107); Estimated GFR 81.72 (mL/min/1.73m2); Glucose 224 mg/dL (74-106); Potassium 3.9 mmol/L (3.5-5.1); Sodium 141 mmol/L (136-145); Total Protein 7.2 g/dL (6.4-8.2)
[2023-06-25 19:28] LABS: CEA 2.8 ng/mL (See Note)
[2023-07-08] MEDS: Normal Saline Flush 10 ML SYR IVP (14:04)
[2023-07-08 14:16] LABS: Abs Immature Grans 0.02 10^3/uL (0.0-0.06); Absolute Basophil Count 0.05 10^3/uL (0.0-0.2); Absolute Eosinophil Count 0.09 10^3/uL (0.0-0.7); Absolute Lymphocyte Count 1.92 10^3/uL (1.2-3.4); Absolute Neutrophil Count 3.77 10^3/uL (1.2-6.7); Basophils % 0.8; Eosinophils % 1.4; HCT 39.4 % (36.0-46.0); HGB 13.6 g/dL (11.2-15.7); Immature Grans % 0.3; Lymphocytes % 28.9; MCH 30.1 pg (27.0-33.0); MCHC 34.5 % (32.0-36.0); MCV 87 fL (80-95); MPV 9.1 fL (8.0-11.0); Neutrophils % 56.6; Platelet Count 242 10^3/uL (130-400); RBC 4.52 10^6/uL (3.93-5.22); RDW 14.5 % (11.7-14.6); RDW-SD 46.1 fL; WBC 6.65 10^3/uL (4.4-10.8)
[2023-07-08 14:37] LABS: ALT 50 U/L (14-59); AST 26 U/L (15-37); Albumin 3.6 g/dL (3.4-5.0); Alkaline Phosphatase 82 U/L (46-116); Anion Gap 10.3 mmol/L (3-11); BUN 21 mg/dL (7-18); Bilirubin, Total 0.4 mg/dL (0.2-1.0); CO2 24.7 mmol/L (21.0-32.0); CREATININE 0.7 mg/dL (0.55-1.02); Calcium 9.6 mg/dL (8.5-10.1); Chloride 105 mmol/L (98-107); Estimated GFR 95.92 (mL/min/1.73m2); Glucose 126 mg/dL (74-106); Potassium 4.1 mmol/L (3.5-5.1); Sodium 140 mmol/L (136-145); Total Protein 7.3 g/dL (6.4-8.2)
[2023-07-08 22:25] LABS: CEA 2.9 ng/mL (See Note)
== END 2023-07-14 23:59 | disposition home or self-care (01) ==
LOC: INF 03:27
PROVIDERS: PCP Family Medicine; Visit Provider Internal Medicine Hematology & Oncology
DX: C18.1 Malignant neoplasm of appendix (principal); Z45.2 Encounter for adjustment and management of vascular access device
CPT/HCPCS: 36415; 36591; 80053; 96523; 82378; 85025

== ENCOUNTER 2023-08-05 01:06 | Outpatient (RCR) | payer MEDICARE, MEDICAID, SELFPAY ==
[2023-07-15 00:05] VITALS: BP 146/77; PULSE 86; RESP 16; TEMP 36.5
[2023-07-22] MEDS: Normal Saline Flush 10 ML SYR IVP (13:05)
[2023-07-22 13:37] LABS: Abs Immature Grans 0.05 10^3/uL (0.0-0.06); Absolute Basophil Count 0.05 10^3/uL (0.0-0.2); Absolute Eosinophil Count 0.13 10^3/uL (0.0-0.7); Absolute Lymphocyte Count 2.01 10^3/uL (1.2-3.4); Absolute Neutrophil Count 4.09 10^3/uL (1.2-6.7); Basophils % 0.7; Eosinophils % 1.8; HCT 37.7 % (36.0-46.0); HGB 12.9 g/dL (11.2-15.7); Immature Grans % 0.7; Lymphocytes % 27.8; MCH 30.4 pg (27.0-33.0); MCHC 34.2 % (32.0-36.0); MCV 89 fL (80-95); MPV 9.4 fL (8.0-11.0); Monocytes % 12.4; Neutrophils % 56.6; Platelet Count 159 10^3/uL (130-400); RBC 4.25 10^6/uL (3.93-5.22); RDW 14.6 % (11.7-14.6); RDW-SD 45.7 fL; WBC 7.23 10^3/uL (4.4-10.8)
[2023-07-22 13:52] LABS: ALT 47 U/L (14-59); AST 24 U/L (15-37); Albumin 3.6 g/dL (3.4-5.0); Alkaline Phosphatase 72 U/L (46-116); Anion Gap 9.4 mmol/L (3-11); BUN 15 mg/dL (7-18); Bilirubin, Total 0.3 mg/dL (0.2-1.0); CO2 27.6 mmol/L (21.0-32.0); CREATININE 0.8 mg/dL (0.55-1.02); Chloride 103 mmol/L (98-107); Estimated GFR 81.72 (mL/min/1.73m2); Glucose 135 mg/dL (74-106); Potassium 4.1 mmol/L (3.5-5.1); Sodium 140 mmol/L (136-145); Total Protein 7.2 g/dL (6.4-8.2)
[2023-07-23 17:41] LABS: CEA 3.3 ng/mL (See Note)
[2023-08-05] MEDS: Normal Saline Flush 10 ML SYR IVP (12:49)
[2023-08-05 12:53] LABS: Abs Immature Grans 0.04 10^3/uL (0.0-0.06); Absolute Basophil Count 0.03 10^3/uL (0.0-0.2); Absolute Eosinophil Count 0.08 10^3/uL (0.0-0.7); Absolute Lymphocyte Count 1.75 10^3/uL (1.2-3.4); Absolute Monocyte Count 0.78 10^3/uL (0.1-0.8); Absolute Neutrophil Count 2.62 10^3/uL (1.2-6.7); Basophils % 0.6; Eosinophils % 1.5; HCT 36.8 % (36.0-46.0); HGB 12.6 g/dL (11.2-15.7); Immature Grans % 0.8; MCHC 34.2 % (32.0-36.0); MCV 91 fL (80-95); MPV 8.9 fL (8.0-11.0); Monocytes % 14.7; Neutrophils % 49.4; Platelet Count 155 10^3/uL (130-400); RBC 4.06 10^6/uL (3.93-5.22); RDW 14.7 % (11.7-14.6); RDW-SD 48.4 fL
[2023-08-05 13:08] LABS: ALT 45 U/L (14-59); AST 27 U/L (15-37); Albumin 3.3 g/dL (3.4-5.0); Alkaline Phosphatase 77 U/L (46-116); Anion Gap 5.7 mmol/L (3-11); BUN 16 mg/dL (7-18); Bilirubin, Total 0.3 mg/dL (0.2-1.0); CO2 29.3 mmol/L (21.0-32.0); CREATININE 0.8 mg/dL (0.55-1.02); Calcium 8.8 mg/dL (8.5-10.1); Chloride 105 mmol/L (98-107); Estimated GFR 81.72 (mL/min/1.73m2); Glucose 119 mg/dL (74-106); Potassium 4.2 mmol/L (3.5-5.1); Sodium 140 mmol/L (136-145); Total Protein 6.9 g/dL (6.4-8.2)
[2023-08-05 22:20] LABS: CEA 3.5 ng/mL (See Note)
== END 2023-08-12 23:59 | disposition home or self-care (01) ==
LOC: INF 01:06
PROVIDERS: PCP Family Medicine; Visit Provider Internal Medicine Hematology & Oncology
DX: C18.1 Malignant neoplasm of appendix (principal); Z45.2 Encounter for adjustment and management of vascular access device
CPT/HCPCS: 36591; 80053; 82378; 85025

== ENCOUNTER 2023-10-06 10:33 | Emergency (ER) | payer MEDICARE, SELFPAY ==
[2023-10-06 10:35] VITALS: BP 175/79; PULSE 94; RESP 18; TEMP 37.7; O2SAT 100
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
--- NOTE | 2023-10-06 11:22 | W.EDPROG ---
Date of service: 10/06/23 Time of Service: 11:22 Medical Decision Making 67-year-old female patient was sent here by express care-they have pus draining from a surgical wound discharge from [facility] on Wednesday. I did not perform a medical screening exam on the patient, I inquired if the patient had called their surgeon, they stated that the surgeon asked him to present to [facility] as [facility] had a wait. I stated that we would be happy to perform workup and likely initiate transfer per postoperative infection evaluation. The patient then stated they did not want to be seen in this ER, did not want to be poked and prodded with IV sticks only to have the process repeated and have a possible ambulance transfer. Their vitals were stable, they were ambulating on their own and mentating normally without any signs of obvious distress. I think it is reasonable for them of their own free will in sound mind to present to the most appropriate facility where they had been previously recommended to go by their surgeon. Medical Records Medical records reviewed: Yes I reviewed the patient's medical records. Quality:[facility] Health Related Social Needs: No Data to Display Discharge Plan Discharge Details Chief Complaint: Cellulitis Primary Care Provider: Shruthi Arrington V ED Provider: Provider,Temporary Home Meds and New Rx's Prescriptions: No Action 5-hydroxytryptophan (5-HTP) [5-HTP] 100 mg capsule 100 mg PO BID ibuprofen 800 MG tablet 800 mg PO Q8H PRN magnesium 250 mg tablet 250 mg PO DAILY vitamin B complex Capsule 1 cap PO DAILY cyanocobalamin (vitamin B-12) [Vitamin B-12] 500 mcg tablet 500 mcg PO DAILY cholecalciferol (vitamin D3) 50 mcg (2,000 unit) capsule 50 mcg PO DAILY cyclobenzaprine 10 mg tablet 10 mg PO TID PRN L-Tyronsine 1,000 mg PO DAILY Patient Comments: Uses for PTSD Nac 2 cap PO TID PRN Patient Comments: Uses for PTSD enoxaparin 40 mg/0.4 mL syringe 40 mg subcut DAILY
== END 2023-10-06 14:08 | disposition left against medical advice (07) ==
PROVIDERS: Emergency Provider Physician Assistant; PCP Family Medicine
DX: Z53.21 Procedure and treatment not carried out due to patient leaving prior to being seen by health care provider (principal)
CPT/HCPCS: 00123

== ENCOUNTER 2023-10-28 05:03 | Outpatient (RCR) | payer MEDICARE, MEDICAID, SELFPAY ==
[2023-10-28] MEDS: Normal Saline Flush 10 ML SYR IVP (10:32)
[2023-10-28 10:54] LABS: Abs Immature Grans 0.07 10^3/uL (0.0-0.06); Absolute Basophil Count 0.03 10^3/uL (0.0-0.2); Absolute Eosinophil Count 0.21 10^3/uL (0.0-0.7); Absolute Lymphocyte Count 1.99 10^3/uL (1.2-3.4); Absolute Monocyte Count 0.57 10^3/uL (0.1-0.8); Absolute Neutrophil Count 3.61 10^3/uL (1.2-6.7); Basophils % 0.5 %; Eosinophils % 3.2 %; HCT 37.4 % (36.0-46.0); HGB 12.4 g/dL (11.2-15.7); Immature Grans % 1.1 %; Lymphocytes % 30.7 %; MCH 30.6 pg (27.0-33.0); MCHC 33.2 % (32.0-36.0); MCV 92 fL (80-95); MPV 9.6 fL (8.0-11.0); Monocytes % 8.8 %; Neutrophils % 55.7 %; Platelet Count 192 10^3/uL (130-400); RBC 4.05 10^6/uL (3.93-5.22); RDW 12.1 % (11.7-14.6); WBC 6.48 10^3/uL (4.4-10.8)
[2023-10-28 11:09] LABS: ALT 80 U/L (14-59); AST 34 U/L (15-37); Albumin 3.5 g/dL (3.4-5.0); Alkaline Phosphatase 75 U/L (46-116); Anion Gap 6.8 mmol/L (3-11); BUN 24 mg/dL (7-18); Bilirubin, Total 0.3 mg/dL (0.2-1.0); CO2 28.2 mmol/L (21.0-32.0); CREATININE 0.7 mg/dL (0.55-1.02); Calcium 8.8 mg/dL (8.5-10.1); Chloride 106 mmol/L (98-107); Estimated GFR 95.32 (mL/min/1.73m2); Glucose 152 mg/dL (74-106); Potassium 3.9 mmol/L (3.5-5.1); Sodium 141 mmol/L (136-145); Total Protein 7.2 g/dL (6.4-8.2)
[2023-10-28 21:05] LABS: CEA 1.1 ng/mL (See Note)
== END 2023-11-12 23:59 | disposition home or self-care (01) ==
LOC: INF 05:03
PROVIDERS: PCP Family Medicine; Visit Provider Internal Medicine Hematology & Oncology
DX: C18.1 Malignant neoplasm of appendix (principal); Z45.2 Encounter for adjustment and management of vascular access device
CPT/HCPCS: 36591; 80053; 82378; 85025

== ENCOUNTER 2023-11-19 14:32 | Outpatient (REF) | payer MEDICARE, MEDICAID, SELFPAY ==
[2023-11-19 15:52] LABS: Calculated LDL 94 mg/dL (<100); Cholesterol 191 mg/dL (<200); HDL Cholesterol 40 mg/dL (40-60); Triglyceride 289 mg/dL (<150)
[2023-11-19 16:19] LABS: Hemoglobin A1C 6.3 % (<5.7)
== END 2023-11-19 14:33 | disposition home or self-care (01) ==
LOC: NCHCN 14:32
PROVIDERS: PCP Family Medicine; Visit Provider Nurse Practitioner Family
DX: Z00.00 Encounter for general adult medical examination without abnormal findings (principal)
CPT/HCPCS: 80061; 83036; 84443

== ENCOUNTER → 2023-11-29 02:19 | Outpatient (CLI) | payer MEDICARE, MEDICAID, SELFPAY ==
--- NOTE | 2023-11-29 | DI.DEXA_ITS ---
Exam(s) XR DEXA BONE DENSITY W/WO JACIEL EXAM: XR DEXA BONE DENSITY W/WO JACIEL CLINICAL HISTORY: ASYMPTOMATIC MENOPAUSAL STATE, Z78.0 TECHNIQUE: Samesurf C densitometer analysis of left hip, lumbar spine and left forearm. Lat eral survey image of the thoracic and lumbar spine. COMPARISON: No exams were available for comparison FINDINGS: Lateral view of the thoracic and lumbar spine shows no evidence of compression fractures. Bone mineral density measurements of the lumbar spine correspond to a total T-score of 2.2, in the n ormal range. Bone mineral density measurements of the left hip correspond to a total T-score of 0.8. The femoral neck T-score is -0.9, in the normal range.. Theleft forearm bone mineral density measurements correspond to a T-score of the distal 3rd of 0.5, in the normal range.. IMPRESSION: Normal bone mineral density.
--- OUTSIDE RECORDS SUMMARY | 2023-11-29 02:22 | XMS_ITS | Continuity of Care Document ---
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 Santamaria Primary Care Provid er UNKNOWN Attending Provider Unavailable KERI Nash Attending Provider KERI Hadley Attending Provider Care Teams Patient Care Team Team Status: Active Member Role Status Dates Hina Johnson [facility] Primary Care Provider Ac tive Visit Care Team Team Status: Active Member Role Status Dates Hina Johnson [facility] Primary Care Provider Ac tive Start: October 15, 2023 UNKNOWN Attending Provider Active Start: 2023 Visit Care Team Team Status: Inactive Member Role Status Dates Hina Johnson [facility] Primary Care Provider, Referring Provider Active Start: October 22, 2023 End: October 22, 2023 KERI Enamorado Attending Provider Active Start: October 22, 2023 End: October 22, 2023 Patient Care Team Team Status: Inactive Member Role Status Dates Hina Johnson [facility] Primary Care Provider, Referring Provider Active Start: October 28, 2023 End: October 28, 2023 KERI Gambino Attending Provider Active Start: October 27 End: October 28, 2023 Chief Complaint and Reason for Visit Chief Complaint NEW PATIENT wound care Social History Smoking Status Unknown if ever smoked Additional Data Assigned Sex Female Insurance Providers Guarantor DYLAN LOPEZ Address [address] [facility] [address] Contact Info. Home Phone: Payer Policy Id Coverage Id Subscriber's Name Subscriber Id Effective Date Expiration Date [place] [place] [id number] DYLAN LOPEZ [id number] Encounters Encounter Location(s) Arrival/Admit Date Discharge/Depart Date Provider(s) Non-patient / Non-visit [facility] October 15, 2023 11:59pm Unknown Departed Referred [facility] October 22, 2023 8:21am October 22, 2023 8:22am KERI Hayden Departed Referred [facility] [place] October 28, 2023 8:12am October 28, 2023 8:13am Abida elizalde , PAC
--- OUTSIDE RECORDS SUMMARY | 2023-11-29 02:22 | XMS_ITS | Continuity of Care Document ---
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 Name Role Phone JOANNE Johnson Primary Care Provid er UNKNOWN Attending Provider Unavailable KERI Nash Attending Provider Care Teams Patient Care Team Team Status: Active Member Role Status Dates JOANNE Palacios Primary Care Provider Ac tive Patient Care Team Team Status: Active Member Role Status Dates JOANNE Palacios Primary Care Provider Ac tive Start: October 15, 2023 UNKNOWN Attending Provider Active Start: Carmella chang 2023 Patient Care Team Team Status: Inactive Member Role Status Dates JOANNE Palacios Primary Care Provider, Referring Provider Active Start: October 22, 2023 End: October 22, 2023 KERI Enamorado Attending Provider Active Start: October 22, 2023 End: October 22, 2023 Chief Complaint and Reason for Visit Chief Complaint NEW PATIENT Social History Smoking Status Unknown if ever smoked Additional Data Assigned Sex Female Insurance Providers Guarantor DYLAN LOPEZ Address [address] [facility] [address] Contact Info. Home Phone: Payer Policy Id Coverage Id Subscriber's Name Subscriber Id Effective Date Expiration Date [place] [place] [id number] DYLAN LOPEZ [id number] Encounters Encounter Location(s) Arrival/Admit Date Discharge/Depart Date Provider(s) Non-patient / Non-visit [facility] October 15, 2023 11:59pm Unknown Departed Referred [facility] October 22, 2023 8:21am October 22, 2023 8:22am Yehuda Nash PAC
== END ==
PROVIDERS: PCP Family Medicine; Visit Provider Nurse Practitioner Family
DX: Z78.0 Asymptomatic menopausal state (principal)
CPT/HCPCS: 77080

== ENCOUNTER 2024-01-26 03:05 | Outpatient (CLI) | payer MEDICARE, MEDICAID, SELFPAY ==
--- OUTSIDE RECORDS SUMMARY | 2024-01-26 03:06 | XMS_ITS | Clinical Summary ---
Author Organization [facility] Address [facility] [place] [address] Care Team Providers Care Engagement Director Name Role Phone Hina Johnson Primary Care Provider Allergies Active Allergy Reactions Criticality Noted Date Comments Sulfamethoxazole-Trimethoprim Hives 2022 Cephalexin Hives 02/25/2023 Medications Medication Sig Dispensed Refills Start Date End Date Status cyanocobalamin, vitamin B-12, (Vitamin B-12) 500 mcg tablet Take 500 mcg by mouth. 11/11/2021 Active ibuprofen (Advil) 800 mg tablet Take 800 mg by mouth as needed for Pain. Active methocarbamoL (Robaxin) 500 mg tablet Take 500 mg by mouth as needed. Active cholecalciferol, Vitamin D3, (Vitamin D3) 50 mcg (2,000 unit) tablet TAKE 1 TO 2 CAPSULES BY MOUTH DAILY 01/12/2023 Active b complex vitamins Capsule Take 1 capsule by mouth every morning. 12/30/2022 Active prochlorperazine (Compazine) 10 mg tabletIndications:D rug-induced nausea and vomiting Take 1 tablet by mouth every 6 hours as needed for Nausea. 30 tablet 5 04/16/2023 Active Additional Information Patient not taking.Reported on 10/28/2023 ondansetron (Zofran) 8 mg tablet Take 1 tablet by mouth every 8 hours as needed for Nausea (Alternate with compazine). 20 tablet 04/18/2023 Active Additional Information Patient not taking.Reported on 10/28/2023 acetaminophen (Tylenol) 500 mg tablet Take 1,000 mg by mouth every 6 hours as needed for Pain. Active Active Problems Problem Noted Date Diagnosed Date Wound dehiscence 10/14/2023 History of partial colectomy 10/14/2023 Wound infection 10/08/2023 Colon cancer 09/28/2023 Cancer Staging:Clinical stage from 02/25/2023: cT4, cN0, cM1 - Signed by Ema Garcia MD on 11/02/2023 Pathologic stage from 11/01/2023: pT0, pN0, cM0 - Signed by Ema Garcia MD on 11/02/2023 S/P laparoscopy 09/28/2023 Overview (09/29/2023): Laparoscopic right hemicolectomy with primary anastomosis; Dr. 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 Depressive disorder 02/26/2023 Elevated blood-pressure read ing without diagnosis of hypertension 02/26/2023 Lack of energy 02/26/2023 ZARA (obstructive sleep apnea) 02/26/2023 Posttraumatic stress disorder 02/26/2023 Snoring 02/26/2023 Vitamin D deficiency 02/26/2023 Resolved Problems Problem Noted Date Diagnosed Date Resolved Date Tachycardia 09/29/2023 10/04/2023 Encounters Date Type Department Care Team Description 11/19/2023 Telephone [place] [phone] Erma Sy RN 11/15/2023 Tele[place] [phone] Tashia Maria 11/12/2023 [place] [phone] Maria Victoria Landaverde 11/04/2023 10:10 AM EDT - 11/04/2023 11:59 PM EDT Hospital [place] [phone] Derek Lindquist MD Adenocarcinoma of 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 11/04/2023 Travel 11/02/2023 [place] [address] Ham Love PA 11/02/2023 Multidisciplinary Ca re Committee [place] [phone] Derek Lindquist MD 11/01/2023 1:00 PM EDT Office [place] [phone] Ema Garcia MD Malignant neoplasm of colon, unspecified part of colon; History of partial colectomy 11/01/2023 Travel 10/28/2023 3:00 PM EDT Office Visit Hematology/Oncol ogy at [address] [phone] Derek Lindquist MD 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 Travel from Last 3 Months Family History Medical History Relation Comments Cancer Brother eye cancer Cancer Father metastatic; unk nown origin site Colon Polyps Father Colorectal Cancer Maternal Cousin Breast Cancer Maternal Grandmother d.98 Brain Cancer Maternal Uncle Colorectal Cancer Paternal Aunt 1 Cancer Paternal Aunt 2 Gastrointestina l cancer Colon Polyps Sister Relation Status Comments Brother Father Maternal Cousin Alive Maternal Grandfather Maternal Grandmother Maternal Uncle Mother Paternal Aunt 1 Paternal Aunt 2 Paternal Grandfather Paternal Grandmother Sister Alive Social History Tobacco Use Types Packs/Day Years Used Date Smoking Tobacco: Former Cigarettes Smokeless Tobacco: Never Tobacco Cessation:Counseling Given: Not Answered Alcohol Use Standard Drinks/Week Comments Not Currently 0 (1 standard drink = 0.6 oz pur e alcohol) few times yearly [facility] Utilities Answer Date Recorded In the past 12 months has [employer]orph[employer], gas, oil, or water company threatened to shut off services in your home? No 09/29/2023 Hunger Vital Sign Answer Date Recorded Within the past 12 months, y ou worried that your food would run out before you got the money to buy more. Never true 09/29/19 24 Within the past 12 months, t he food you bought just didn't last and you didn't have money to get more. Never true 09/29/2023 PRAPARE - Transportation Answer Date Re corded In the past 12 months, has l ack of transportation kept you from medical appointments or from getting medications? No 09/12 In the past 12 months, has l ack of transportation kept you from meetings, work, or from getting things needed for daily living? No 09/29/2023 Housing Stability Vital Sign Answer Gary e Recorded In the last 12 months, was t here a time when you were not able to pay the mortgage or rent on time? No 09/29/2023 [address] of [address] Lived in the Last Year Not on f ile 09/29/2023 In the last 12 months, was t here a time when you did not have a steady place to sleep or slept in a alf (including now)? No 09/29/2023 DH IPV Inpatient Questions Answer Date Recorded Does Anyone Try to Keep You From Having Contact with Others or Doing Things Outside Your Home? no 10/09/2023 Feels Threatened by Someone no 09/13 Feels Unsafe at Home or Work/School no 10/09/2023 Physical Signs of Abuse Present no 10/09/2023 Sex and Gender Information Value Date Recorded Sex Assigned at Not on file Gender Identity Not on file Sexual Orientation Not on file Last Filed Vital Signs Vital Sign Reading Time Taken Comments Blood Pressure 128/68 11/04/2023 11:59 AM EDT Pulse 84 11/04/2023 11:59 AM EDT Temperature 36.9 ??C (98.5 ??F) 11/04/2023 10:50 AM E DT Respiratory Rate 16 11/04/2023 11:59 AM EDT Oxygen Saturation 96% 11/04/2023 11:59 AM EDT Inhaled Oxygen Concentration - - Weight 86.9 kg (191 lb 9.6 oz) 11/01/2023 12:49 PM EDT Height 154.9 cm (5' 0.98) 11/01/2023 12:49 PM E DT Body Mass Index 36.22 11/01/2023 12:49 PM EDT Plan of Treatment Upcoming Encounters Date Type Department Care Team (Late st Contact Info) Description 01/28/2024 10:30 AM EDT Office Visit Hematology/Oncolog y at [address] [phone] Derek Lindquist MD [facility] [place] [place] [address] Ann Tello, [address] HEMATOLOGY AND ONCOLOGY [place], [place] [address] 03/24/2024 1:00 PM EDT Hospital Encounter [place] [phone] Shilo Lopez MD [facility] [place] [address] 03/24/2024 1:00 PM EDT - 03/24/2024 1:45 PM EDT Surgery [place] [phone] Shilo Lopez MD [facility] [place] [address] COLONOSCOPY, DIAGNOSTIC (WRVU 3.26) Scheduled Procedures Name Priority Associated Diagnoses Date/Ti me COLONOSCOPY, DIAGNOSTIC (WRVU 3.26) Procedure: Colonoscopy Indication: Malignant neoplasm of colon, unspecified part of colon and History of partial colectomy Sedation: IVCS Timeframe: within 2 weeks Specific provider: first available OV needed: No Anticoagulation status: no documented anticoagulation use 03/24/2024 1:00 PM EDT Health Maintenance Due Date Last Done Comments CT Colonography 1957 FIT DNA 1957 FIT 1957 Sigmoidoscopy 1957 Hepatitis C Screening 10/19/1975 Lipid Screening 10/19/1975 Tdap adult 1976 Tetanus vaccine 1976 HPV test 10/19/1987 PAP Smear 10/19/1987 Breast Cancer Share Decision Needed 1997 Breast Cancer screening 1997 Zoster vaccine (1 of 2) 10/19/2007 Advance Directive 2012 Bone Density Scan 2022 Pneumoccocal Vaccine: 65+ (1 of 1 - PCV) 2022 Covid-19 Vaccine (2 - 2022-2 4 season) 2023 03/27/2023 Influenza (Flu) vaccine (1 o f 1 - Influenza standard series) 02/13/2024 Diabetes Screening (HgbA1C o r Glucose) 10/10/2026 10/11/2023, 10/09/2023, 10/08/2023, Additional history exists Colonoscopy 03/16/2033 03/16/2023 Colorectal Cancer Screening 03/16/2033 Sigmoidoscopy (10 year) with FIT yearly 03/16/2033 03/16/2023 Medical Devices Explanted Type Area Market Development Executive Device Identifier Shelf Expiration Date Model / Serial / Lot Port Infusion 8fr Cath Power Injectable Lp 1lum Ct Ti [id number] Implanted:Qty: 1 on 04/14/2023 by David Bower DO Explanted:Qty: 1 on 11/04/2023 by Pina Ball PA IMPLANTS Right: Chest Wall [employer] - [employer] BARD 12/11/2024 [id number] / / [id number] Procedures Procedure Name Priority Date/Time Associated Diagnosis Comments IR MEDIPORT REMOVAL Routine 11/04/2023 1 1:57 AM EDT Adenocarcinoma of appendix COMPREHENSIVE METABOLIC PANEL Routine 10/11/2023 11:34 AM EDT Adenocarcinoma, appendix from Last 3 Months or Most Recently Relevant to Health Maintenance Results * IR Mediport Removal (11/04/2023 11:57 AM EDT) Anatomical Region Laterality Modality X-Ray Angiograph y Narrative 11/04/2023 12:57 PM EDT Interventional Radiology Procedure Note Procedure: Subcutaneous venous port explant Indication: Colon cancer, discontinue group home central venous access for chemotherapy Pre-procedure: Informed consent for the procedure including risks, benefits and alternatives was obtained. Active time-out was performed prior to the procedure. The site was prepared and draped. Maximal sterile barrier technique was used throughout the procedure. Sedation: None. Technique: Local anesthetic was administered at the port site. A 2 cm transverse incision was made superior to the port. Catheter was removed from the vein via the subcutaneous tunnel. Hemostasis was achieved by applying direct pressure to the right neck. Blunt and sharp dissection used to remove, intact, the single-lumen port. Removal of the port reservoir, hub, and catheter were confirmed by their identification outside the patient. The wound was copiously irrigated with normal saline. The pocket was closed using a two-layer technique with 2-0 vicryl deep interrupted and 4-0 vicryl running subcuticular sutures. Skin closed with dermabond. Medications: Lidocaine 1% <10 cc subcutaneous Estimated blood loss: 3 mL Complications: No immediate Impression: Explantation of single-lumen right subcutaneous venous port with all components accounted for. Service provider: Pina Ball PA-C Attending of record: David Bower DO. I was not present. ?? 11/04/2023 Derek Lindquist MD IMG IR ORDERABLES * (ABNORMAL) Comprehensive metabolic panel (non-fasting) (10/11/2023 11:34 AM EDT) Glucose 118 65 - 199 mg/dL [facility] Comment:Diabetes: >=200 mg/d L plus symptoms Blood Urea Nitrogen 16 8 - 18 mg/dL [facility] Creatinine 0.62(L) 0.70 - 1.20 mg/dL [facility] Sodium 142 135 - 145 mmol/L [facility] Potassium 4.6 3.5 - 5.0 mmol/L [facility] Comment: Please note: ??Patients with WBC >100,000 may have falsely elevated Potassium levels. ??For accurate Potassium quantification in these patients send serum separator tube (gold top) for subsequent determinations. ??Contact the Clinical Chemistry Laboratory if there are any questions. Chloride 103 98 - 107 mmol/L [facility] Carbon Dioxide 26 22 - 31 mmol/L [facility] Anion Gap 13 5 - 15 mmol/L [facility] Calcium 9.8 8.5 - 10.5 mg/dL [facility] Protein, Total 7.1 6.1 - 8.0 g/dL [facility] Albumin 4.0 3.2 - 5.2 g/dL [facility] Aspartate Aminotransferase 17 0 - 30 unit/L [facility] Alanine Aminotransferase 23 0 - 30 unit/L [facility] Alkaline Phosphatase 81 35 - 105 unit/L [facility] Bilirubin, Total <0.2(L) 0.2 - 1.3 mg/dL [facility] Est Glomerular Filtration Rate 99 >=60 mL/min/1. 73 m?? [facility] Comment: This patient's estimated GFR was calculated using the 2020 CKD-EPI equation. The estimated GFR can vary from the measured GFR by up to 30% in the absence of rapidly changing kidney function. Assessment of the estimated GFR is not appropriate when creatinine concentrations are rapidly changing. For clinical situations in which a more precise estimate of GFR is necessary, consider alternative methods of GFR estimation such as a 24-hour urine creatinine clearance. Assignment of CKD stage 1-5 for patients with an eGFR near the transition point between stages may be based on clinical assessment of muscle mass and symptoms in addition to eGFR. Blood 10/11/2023 11:3 4 AM EDT 10/11/2023 11:43 AM EDT Narrative Resulting Agency Comment Spec In Lab Ema Garcia MD CHEMISTRY ORDERABLES [facility] [place] [place] [address] from Last 3 Months or Most Recently Relevant to Health Maintenance Advance Directives * Attempt Cardiopulmonary Resuscitation - Inpatient (Latest Code Status on File) Date Activated Date Inactivated Comments 11/04/2023 10:37 AM 11/05/2023 4:35 AM Question Answer Comments Code Status decision made by: Patient * Attempt Cardiopulmonary Resuscitation - Inpatient Date Activated Date Inactivated Comments 10/08/2023 10:40 PM 10/09/2023 5:58 PM Question Answer Comments Code Status decision made by: Patient * Attempt Cardiopulmonary Resuscitation - Inpatient Date Activated Date Inactivated Comments 09/28/2023 5:31 PM 10/04/2023 1:49 PM Question Answer Comments Code Status decision made by: Patient * Attempt Cardiopulmonary Resuscitation - Inpatient Date Activated Date Inactivated Comments 04/14/2023 10:21 AM 04/15/2023 4:33 AM Question Answer Comments Code Status decision made by: Patient * Attempt Cardiopulmonary Resuscitation - Inpatient Date Activated Date Inactivated Comments 03/16/2023 2:35 PM 03/16/2023 7:18 PM Question Answer Comments Code Status decision made by: Patient Care Teams Engagement Director Relationship Specialty Start Date End Date Hina Johnson [address] [place] [address] PCP - General Family Medicine 06/25/23
--- OUTSIDE RECORDS SUMMARY | 2024-01-26 03:06 | XMS_ITS | Data Portability ---
Author Organization [facility] [place] [address] Care Team Providers Care Counter Sales Person Name Role Phone NIKKIDIANA CHRISTOPHER Hematology/Oncology ARIANA GARCIA Colorectal Surgeon STACEY CRUMP Broadcast Correspondent [phone] Assessment No assessment recorded. Plan of Treatment Reminders Order Date Submit Date Provider Last Modified By Organization Details Last Modified Time Details Appointments Annual [facility] ss Exam 40 2024 09:00A M Not available Not available Not available Lab influe nza virus A + B + SARS-C oV-2 (COVID 19) Ag panel, rapid IA, upper respir atory specim en [address], [address] [place] [address], [address], 09/22/2023 16:21:46 HbA1c (hemog lobin A1c), blood [email or web address] [facility] (Registration ), [address] [place] [address] [place], [address], 11/26/2023 09:28:53 lipid panel, serum [email or web address] [facility] (Registration ), [address] [place] [address] [place], [address], 11/26/2023 09:29:03 TSH, serum, reflex free T4 [email or web address] [facility] (Registration ), [address] [place] [address] [place], [address], 11/26/2023 09:29:14 Referral wound care referr al 2023 024 michael [facility]- Correct Fax Number, [address] [place], [address], 12/06/2023 08:45:02 Procedures None record ed. Surgeries None record ed. Imaging DEXA 2023 024 [facility] (Radiology), [address] [place] [address] , [place], [address], 11/22/2023 16:23:39 Medication Orders flutic asone propio robe 50 mcg/ac tuatio n nasal spray, suspen zaida 2023 024 [facility], [address] [place], [address], 09/22/2023 15:08:16 Patient TargetsNo targets recorded. Patient Instructions Encounter Date Encounter Id Patient Instructions Last Modified By Organization Details Last Modified Time 09/22/2023 [id number] Blanca: Use a Jojo pot twice a day over the next week, add steam and humidity to the environment to help promote nasal discharge, Use [id number] medications for discomfort, start nasal fluticasone as directed. If you are feeling worse by Wednesday morning? facial pain, fever etc. contact the clinic for further evaluation [email or web address] Not available 09/22/2023 15:16:35 Reason for Referral Referring Physician: Juma Johnson, Family Medicine, Encounter Date: 10/14/2023 Results Created Date Observation Date Name Description Value Unit Range Abnormal Flag LastModifiedBy Organization Detail LastModifiedTime 09/22/19 24 09/22/2023 influ mckenna virus A + B + SARS- CoV-2 (COVI D19) Ag panel , rapid IA, upper respi rator y speci men Influenza A negati ve Not Available [facility] [address] [place], [address], 09/22/2023 15:10:40 09/22/19 24 09/22/2023 influ mckenna virus A + B + SARS- CoV-2 (COVI D19) Ag panel , rapid IA, upper respi rator y speci men Influenza B negati ve Not Available [facility] [address] [place], [address], 09/22/2023 15:10:40 09/22/19 24 09/22/2023 influ mckenna virus A + B + SARS- CoV-2 (COVI D19) Ag panel , rapid IA, upper respi rator y speci men SARS-COV-2 negati ve Not Available [facility] [address] [place], [address], 09/22/2023 15:10:40 09/22/19 24 09/22/2023 influ mckenna virus A + B + SARS- CoV-2 (COVI D19) Ag panel , rapid IA, upper respi rator y speci men Sample sent for PCR confirmation No Not Available [facility] [address] [place], [address], 09/22/2023 15:10:40 10/28/19 24 10/28/2023 COMPL ETE BLOOD COUNT W/DIF F WBC 6.48 10_3/ uL 4.4-10 .8 normal Not Available [address] [place], [address] 10/28/2023 11:01:16 10/28/19 24 10/28/2023 COMPL ETE BLOOD COUNT W/DIF F RBC 4.05 10_6/ uL 3.93-5 .22 normal Not Available [address] [place], [address] 10/28/2023 11:01:16 10/28/19 24 10/28/2023 COMPL ETE BLOOD COUNT W/DIF F HGB 12.4 g/dL 11.2-1 5.7 normal Not Available [address] [place], [address] 10/28/2023 11:01:16 10/28/19 24 10/28/2023 COMPL ETE BLOOD COUNT W/DIF F HCT 37.4 % 36.0-4 6.0 normal Not Available [address] [place], [address] 10/28/2023 11:01:16 10/28/19 24 10/28/2023 COMPL ETE BLOOD COUNT W/DIF F MCV 92 fL 80-95 normal Not Available [address] [place], [address] 10/28/2023 11:01:16 10/28/19 24 10/28/2023 COMPL ETE BLOOD COUNT W/DIF F MCH 30.6 pg 27.0-3 3.0 normal Not Available [address] [place], [address] 10/28/2023 11:01:16 10/28/19 24 10/28/2023 COMPL ETE BLOOD COUNT W/DIF F MCHC 33.2 % 32.0-3 6.0 normal Not Available [address] [place], [address] 10/28/2023 11:01:16 10/28/19 24 10/28/2023 COMPL ETE BLOOD COUNT W/DIF F RDW 12.1 % 11.7-1 4.6 normal Not Available [address] [place], [address] 10/28/2023 11:01:16 10/28/19 24 10/28/2023 COMPL ETE BLOOD COUNT W/DIF F platelet count 192 10_3/ uL 130-40 0 normal Not Available [address] [place], [address] 10/28/2023 11:01:16 10/28/19 24 10/28/2023 COMPL ETE BLOOD COUNT W/DIF F MPV 9.6 fL 8.0-11 .0 normal Not Available [address] [place], [address] 10/28/2023 11:01:16 10/28/19 24 10/28/2023 COMPL ETE BLOOD COUNT W/DIF F neutrophils % 55.7 % Not Available [address] [place], [address] 10/28/2023 11:01:16 10/28/19 24 10/28/2023 COMPL ETE BLOOD COUNT W/DIF F lymphocytes % 30.7 % Not Available [address] [place], [address] 10/28/2023 11:01:16 10/28/19 24 10/28/2023 COMPL ETE BLOOD COUNT W/DIF F monocytes % 8.8 % Not Available [address] [place], [address] 10/28/2023 11:01:16 10/28/19 24 10/28/2023 COMPL ETE BLOOD COUNT W/DIF F eosinophils % 3.2 % Not Available [address] [place], [address] 10/28/2023 11:01:16 10/28/19 24 10/28/2023 COMPL ETE BLOOD COUNT W/DIF F basophils % 0.5 % Not Available [address] [place], [address] 10/28/2023 11:01:10/28/19 24 10/28/2023 COMPL ETE BLOOD COUNT W/DIF F immature grans % 1.1 % Not Available [address] [place], [address] 10/28/2023 11:01:16 10/28/19 24 10/28/2023 COMPL ETE BLOOD COUNT W/DIF F nucleated RBC 0.0 % 0.0-0. 3 normal Not Available [address] [place], [address] 10/28/2023 11:01:16 10/28/19 24 10/28/2023 COMPL ETE BLOOD COUNT W/DIF F absolute neutrophil count 3.61 10_3/ uL 1.2-6. 7 normal Not Available [address] [place], [address] 10/28/2023 11:01:16 10/28/19 24 10/28/2023 COMPL ETE BLOOD COUNT W/DIF F absolute lymphocyte count 1.99 10_3/ uL 1.2-3. 4 normal Not Available [address] [place], [address] 10/28/2023 11:01:16 10/28/19 24 10/28/2023 COMPL ETE BLOOD COUNT W/DIF F absolute monocyte count 0.57 10_3/ uL 0.1-0. 8 normal Not Available [address] [place], [address] 10/28/2023 11:01:16 10/28/19 24 10/28/2023 COMPL ETE BLOOD COUNT W/DIF F absolute eosinophil count 0.21 10_3/ uL 0.0-0. 7 normal Not Available [address] [place], [address] 10/28/2023 11:01:16 10/28/19 24 10/28/2023 COMPL ETE BLOOD COUNT W/DIF F absolute basophil count 0.03 10_3/ uL 0.0-0. 2 normal Not Available [address] [place], [address] 10/28/2023 11:01:16 10/28/19 24 10/28/2023 COMPR EHENS FELIPE METAB OLIC PANEL calcium 8.8 mg/dL 8.5-10 .1 normal Not Available [address] [place], [address] 10/28/2023 11:12:18 10/28/19 24 10/28/2023 COMPR EHENS FELIPE METAB OLIC PANEL glucose 152 mg/dL 74-106 high Not Available [address] [place], [address] 10/28/2023 11:12:18 10/28/19 24 10/28/2023 COMPR EHENS FELIPE METAB OLIC PANEL BUN 24 mg/dL 7-18 high Not Available [address] [place], [address] 10/28/2023 11:12:18 10/28/19 24 10/28/2023 COMPR EHENS FELIPE METAB OLIC PANEL creatinine 0.7 mg/dL 0.55-1 .02 normal Not Available [address] [place], [address] 10/28/2023 11:12:18 10/28/19 24 10/28/2023 COMPR EHENS FELIPE METAB OLIC PANEL estimated GFR 95.32 mL/min /1.73m 2 Not Available [address] [place], [address] 10/28/2023 11:12:18 10/28/19 24 10/28/2023 COMPR EHENS FELIPE METAB OLIC PANEL total protein 7.2 g/dL 6.4-8. 2 normal Not Available [address] [place], [address] 10/28/2023 11:12:18 10/28/19 24 10/28/2023 COMPR EHENS FELIPE METAB OLIC PANEL albumin 3.5 g/dL 3.4-5. 0 normal Not Available [address] [place], [address] 10/28/2023 11:12:18 10/28/19 24 10/28/2023 COMPR EHENS FELIPE METAB OLIC PANEL bilirubin, total 0.3 mg/dL 0.2-1. 0 normal Not Available [address] [place], [address] 10/28/2023 11:12:18 10/28/19 24 10/28/2023 COMPR EHENS FELIPE METAB OLIC PANEL alk phos 75 U/L 46-116 normal Not Available [address] [place], [address] 10/28/2023 11:12:18 10/28/19 24 10/28/2023 COMPR EHENS FELIPE METAB OLIC PANEL sodium 141 mmol/ L 136-14 5 normal Not Available [address] [place], [address] 10/28/2023 11:12:18 10/28/19 24 10/28/2023 COMPR EHENS FELIPE METAB OLIC PANEL potassium 3.9 mmol/ L 3.5-5. 1 normal Not Available [address] [place], [address] 10/28/2023 11:12:18 10/28/19 24 10/28/2023 COMPR EHENS FELIPE METAB OLIC PANEL chloride 106 mmol/ L 98-107 normal Not Available [address] [place], [address] 10/28/2023 11:12:18 10/28/19 24 10/28/2023 COMPR EHENS FELIPE METAB OLIC PANEL CO2 28.2 mmol/ L 21.0-3 2.0 normal Not Available [address] [place], [address] 10/28/2023 11:12:18 10/28/19 24 10/28/2023 COMPR EHENS FELIPE METAB OLIC PANEL anion gap 6.8 mmol/ L 3-11 normal Not Available [address] [place], [address] 10/28/2023 11:12:18 10/28/19 24 10/28/2023 COMPR EHENS FELIPE METAB OLIC PANEL AST 34 U/L 15-37 normal Not Available [address] [place], [address] 10/28/2023 11:12:18 10/28/19 24 10/28/2023 COMPR EHENS FELIPE METAB OLIC PANEL ALT 80 U/L 14-59 high Not Available [address] [place], [address] 10/28/2023 11:12:18 10/28/19 24 10/28/2023 CEA cea 1.1 NG/mL see note Not Available [address] [place], [address] 10/29/2023 08:46:56 11/19/19 24 11/19/2023 LIPID 2 cholesterol 191 mg/dL <200 Not Available [address] [place], [address] 11/19/2023 15:55:15 11/19/19 24 11/19/2023 LIPID 2 triglyceride 289 mg/dL <150 high Not Available [place] [address] [place], [address] 11/19/2023 15:55:15 11/19/19 24 11/19/2023 LIPID 2 HDL cholesterol 40 mg/dL 40-60 Not Available Lissy mckenna [address] [place], [address] 11/19/2023 15:55:15 11/19/19 24 11/19/2023 LIPID 2 calculated LDL 94 mg/dL <100 Not Available [address] [place], [address] 11/19/2023 15:55:15 11/19/19 24 11/19/2023 TSH (W/RE F FT4) TSH (w/ref FT4) 1.50 uIU/m L 0.36-3 .74 normal Not Available [address] [place], [address] 11/19/2023 15:55:16 11/19/19 24 11/19/2023 HEMOG LOBIN A1C hemoglobin A1C 6.3 % <5.7 high Not Available [address] [place], [address] 11/19/2023 16:23:19 11/29/19 24 11/29/2023 bone densi tomet ry imagi ng rpt Patien t Name: Ruddy Ch Unit #: [id number] Loc: CARMEN Orderhebert ng Provid er: Ramos ce-Marco w,Vinicius na Accoun t #: [id number] Status : REG CLI Primar y Care Provid er: Ariana Garza M.D. Date of Exam : Sex: F Admiss ion Date: : 1955 Age: 68 Exam(s ) XR DEXA BONE DENSIT Y W/WO JACIEL EXAM: XR DEXA BONE DENSIT Y W/WO JACIEL CLINIC AL HISTOR Y: ASYMPT OMATIC MENOPA USAL STATE, Z78.0 TECHNI QUE: Hologi c Horizo n C densit ometer analys is of left hip, lumbar spine and left forear m. Latera l survey image of the thorac ic and lumbar spine. COMPAR LIN: No exams were availa ble for compar lin FINDIN GS: Latera l view of the thorac ic and lumbar spine shows no eviden ce of compre ssion fractu res. Bone minera l densit y measur ements of the lumbar spine corres pond to a total T-scor e of 2.2, in the normal range. Bone minera l densit y measur ements of the left hip corres pond to a total T-scor e of 0.8. The femora l neck T-scor e is -0.9, in the normal range. . Thelef t forear m bone minera l densit y measur ements corres pond to a T-scor e of the distal 3rd of 0.5, in the normal range. . IMPRES ZAIDA: Normal bone minera l densit y. Ordere d By: Ramos villagomez-Marco wVinicius CC: ------ ------ ------ ------ ------ ------ ------ ------ ------ ------ ------ ------ - Dictat ed By: Alessia Jeffrey 1310 1310 Transc ribed By: Tati Lazo 1310 This is privil eged, confid ential inform ation intend ed only for the provid er named. Any use or distri bution by any person other than this provid er is strict ly prohib ited. If you receiv e this report in error, please notify us immedi ately at and return the origin al report to us at the addres s above. Thank- you. lilian [facility] [address], [place], [address] 12/06/2023 15:04:08 Result Notes None recorded. Problems Name Status Onset Date Resolution Date Notes Provider Name and Address Organization Details Recorded Time Major depression, single episode Active 2010 Problem Code: F32.9; Problem Code Type: ICD-10; Not Available [facility] 3 05:02:40 Stress Active 2010 Problem Code: F43.9; Problem Code Type: ICD-10; Not Available [facility] 3 05:02:40 Posttraumatic stress disorder Active 2012 Problem Code: F43.10; Problem Code Type: ICD-10; FEDERICO QUINTANILLA-[address], [place], [address] , [facility] 4 17:37:22 Sleep apnea Active 201406/09/2020 - Comments only - Juma RUBIO - [facility] 06/05/2020: uses CPAP, with oral appliance as backup. Problem Code: G47.30; Problem Code Type: ICD-10; Not Available [facility] 3 05:02:40 Pain in right foot Active 2014 Problem Code: M79.671; Problem Code Type: ICD-10; Not Available [facility] 3 05:02:40 Attention deficit hyperactivity disorder Active 2014 Problem Code: F90.9; Problem Code Type: ICD-10; FEDERICO QUINTANILLA-[address], [place], [address] , [facility] 4 17:36:24 Allergic rhinitis Active 2014 Problem Code: J30.9; Problem Code Type: ICD-10; FEDERICO QUINTANILLA-[address], [place], [address] , [facility] 4 17:36:17 Cataract Active 2015 Problem Code: H26.9; Problem Code Type: ICD-10; Not Available [facility] 3 05:02:41 Anxiety Active 201510/19/2021 - Comments only - Juma RUBIO - - PHQ-9 equals 13, BRIDGETT-7 equals 10 today. - We discussed the option of NAC, which she is interested in trying. Suggested 600 mg, 2 p.o. every morning, and additional 2 p.o. nightly as needed. Problem Code: F41.8; Problem Code Type: ICD-10; JUMA LIM, [employer] [address], [place], [address] , [facility] 4 17:36:20 Borderline personality disorder Active 2015 Problem Code: F60.3; Problem Code Type: ICD-10; JUMA LIM, EQUALIZ[employer] OPER[employer] [address], [place], [address] , [facility] 4 17:36:29 Adult health examination Active 201510/15/2022 - Comments only - Juma BRANDONP-BC - - Colonoscopy ordered at [facility] (see DIVERTICULITI S, COLON POLYPS) - Mammogram ordered at [facility], per her preference (relative works at [facility] Radiology) - Discussed SHingrix, declines today - Pap due 2023 - Does not qualify for LDCT lung based on py history - Advance Directives paperwork given today - BMP drawn today Problem Code: Z00.00; Problem Code Type: ICD-10; Not Available [facility] 3 05:02:41 Headache Active 2016 Problem Code: R51; Problem Code Type: ICD-10; Not Available [facility] 3 05:02:41 Vitamin D deficiency Active 201908/01/2020 - Comments only - Juma Johnson [employer] - - Encouraged her to take vitD supplements regularly Problem Code: E55.9; Problem Code Type: ICD-10; JUMA LIM, EQUALIZER OPERATOR-BC [address], [place], [address] , [facility] 4 17:36:58 Fatigue Active 201908/01/2020 - Comments only - Juma BRANDONP-BC - - Will check TSH and cbc today Problem Code: R53.83; Problem Code Type: ICD-10; Not Available [facility] 3 05:02:41 Spasm Completed 201911/19/2023 08/01/2020 - Comments only - Juma Johnson [facility] - - Encouraged her to take magnesium supplement regularly, as this seems to help with leg cramps Problem Code: R25.2; Problem Code Type: ICD-10; JUMA LIM, [facility] [address], [place], [address] , [facility] 4 17:33:54 Acute vaginitis Completed 202011/19/2023 08/01/2020 - Comments only - Juma Johnson [facility] - - Wet prep: pH = 5, negative whiff, no clue cells seen, no hyphae or budding yeast seen on EMELYN slide. - Will send VPS for confirmation, given pt's recent GI symptoms, followed by new onset vaginal burning and discharge. Problem Code: N76.0; Problem Code Type: ICD-10; JUMA LIM, [facility] [address], [place], [address] , [facility] 4 17:35:50 Diarrhea Active 2020 Problem Code: R19.7; Problem Code Type: ICD-10; Not Available [facility] 3 05:02:42 Abnormal weight gain Completed 202011/19/2023 Problem Code: R63.5; Problem Code Type: ICD-10; JUMA LIM, [facility] [address], [place], [address] , [facility] 4 17:36:11 Abdominal pain Active 2021 Problem Code: R10.9; Problem Code Type: ICD-10; Not Available [facility] 3 05:02:42 Disorder of intestine Completed 202111/19/2023 10/19/2021 - Comments only - Juma Johnson [facility] - - Colonoscopy has been ordered at [facility], as above. Problem Code: K63.89; Problem Code Type: ICD-10; Removal Reason: Dx'd with cancer of cecum; new problem generated JUMA LIM, [facility]- [address], [place], [address] , [facility] 4 17:35:23 Diverticuliti s of intestine Completed 202102/17/2023 Problem Code: K57.92; Problem Code Type: ICD-10; Not Available [facility] 4 05:38:00 Prediabetes Active 202110/19/2021 - Comments only - Juma Johnson [facility] - - A1c was 5.9 at last years annual. We will repeat serum A1c with her other labs, and follow-up with results. -She will be eligible for a second COVID booster in early November. -She declines Shingrix. -All other preventive care is up-to-date at this time. -Follow-up in 1 year. Problem Code: R73.03; Problem Code Type: ICD-10; JUMA LIM, [facility] [address], [place], [address] , [facility] 4 17:37:27 Residual hemorrhoidal skin tags Active 2021 Problem Code: K64.4; Problem Code Type: ICD-10; Not Available [facility] 3 05:02:43 Polyp of colon Completed 202111/19/2023 Problem Code: K63.5; Problem Code Type: ICD-10; JUMA LIM, [facility], [place], [address] , [facility] 4 17:34:19 Diverticula of intestine Active 202110/15/2022 - Comments only - Juma Johnson [facility] - - She was able to self manage a previous flare while in [place] about 2 months ago, without ER visit or any treatment. I did ask her to send a picture of the supplement that she is taking, which she feels is helping her stool consistency and controlling her bowel symptoms. -1 year follow-up colonoscopy ordered as above. Problem Code: K57.90; Problem Code Type: ICD-10; UJMA LIM, E[employer]ER OPERATOR[employer]BC [address], [place], [address] , [facility] 4 17:36:37 Osteoarthriti s Active 202210/15/2022 - Comments only - Juma Johnson [employer] OPER[employer] - - Discussed treatment options for hand OA, including po/topical NSAIDS or other topicals, exercises, hand PT/OT, ortho referral. SHe would like to start with exercises and topicals. - Gave hand OA handout, suggest topical diclofenac, arnica, or CBD - Can consider hand xrays Problem Code: M19.90; Problem Code Type: ICD-10; JUMA LIM, [employer] [address], [place], [address] , [facility] 4 17:36:49 Acquired trigger finger Active 2022 Problem Code: M65.30; Problem Code Type: ICD-10; Not Available [facility] 3 05:02:43 Disorder of skin and/or subcutaneous tissue Active 202210/15/2022 - Comments only - Juma Johnson [employer] OPER[employer] - - Lesion is palpable, but skin not diffrerent from surrounding skin. No increased warmth, erythema, fluctuance. - She will keep an eye on it and let me know if it is changing in size or appearance, as I would refer her to derm or ENT for biopsy at that time. Problem Code: L98.9; Problem Code Type: ICD-10; Not Available [facility] 3 05:02:43 Screening mammography Active 2022 Problem Code: Z12.31; Problem Code Type: ICD-10; Not Available [facility] 3 05:02:44 Acute stress disorder Completed 201003/10/2023 Problem Code: 308.9; Problem Code Type: ICD-9; Not Available [facility] 3 05:02:44 Major depressive disorder Completed 201003/10/2023 Not Available [facility] 3 05:02:44 Preoperative cardiovascula r examination Completed 201508/01/2020 Problem Code: Z01.810; Problem Code Type: ICD-10; Not Available [facility] 3 05:02:44 Malignant tumor of cecum Active [address] shows tumor has shrunk and is operable. Pre-op appt 09/09/23, surgery scheduled 09/28/23. [facility] Oncology f/u 08/09/23: Had restaging CT 06/04/23, which was read as stable. Current plan is 4 more cycles of Folfox, followed by restaging and re-evaluation for surgery. 04/02/2023 - Comments only - Juma RUBIO - - We reviewed her pathology report, and the treatment recommendatio ns to the best my ability. 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 -I encouraged her to write down questions as she thinks of them, and also to utilize Dr. Garcia's nursing team, as they may be more readily available and able to answer many of her questions. -She will keep her 04/07/2023 follow-up with Dr. Garcia, and I will plan to follow-up with her at that time. Problem Code: C18.0; Problem Code Type: ICD-10; JOANNE QUINTANILLA [address], [place], [address] , [facility] 4 12:00:28 Deep incisional surgical site infection Completed 202311/19/2023 Removal Reason: Resolved JOANNE QUINTANILLA [address], [place], [address] , [facility] 4 17:35:37 Family history of Von Willebrand disease Active 2023 [facility] [address], [place], [address] , [facility] 4 17:33:25 Screening for osteoporosis Active 2023 JOANNE QUINTANILLA [address], [place], [address] , [facility] 4 17:37:47 Problem Notes None recorded. Procedures Surgical History Date Name Laterality Status Provider Name and Address Organization Details Recorded Time right colectomy completed RICHAR Stovall, [facility] 11/16/2023 08:38:11 Imaging Results Imaging Date Name Status LastModified by Organization Details LastModified Time 11/29/2023 bone densitometry imaging rpt completed [address] , [place], [address] 12/06/2023 15:04:08 Procedure Notes None recorded. Medical Equipment None Reported. Allergies Allergen ID Allergen Name Allergen Category Reaction Reaction Severity Criticality Documentation Date Start Date Code Code System Note Provider Name and Address Organization Details Recorded Time 40278 Bactrim medicatio n hives moderate Not available 04/23/20232014 61006 9 RxNorm HIVES Not Available [facility] 3 16:22:16 [id number] Keflex medicatio n hives moderate Not available 04/23/20232014 60821 7 RxNorm hives Not Available [facility] 3 16:22:16 Medications Name Sig Start Date Stop Date Status Note LastModified by Organization Details LastModified Time cyclobenzap rine 10 mg tablet TAKE ONE TABLET BY MOUTH THREE TIMES A DAY NEEDED active Not Available Not Available No t Available clonidine HCl 0.1 mg tablet 1 tab four x daily as needed. 12/01 completed Not Available Not Available Not Available venlafaxine 75 mg tablet Take 0.5 tab by mouth twice daily 12/01 completed Not Available Not Available Not Available Phenergan 12.5 mg tablet 1 TAB every six hours 2014 active Not Available Not Available Not Avai lable azithromyci n 250 mg tablet TAB daily 07/31 completed Not Available Not Available Not Available ibuprofen 800 mg tablet TAKE ONE TABLET BY MOUTH THREE TIMES A DAY NEEDED active Not Available Not Available No t Available ondansetron HCl 8 mg tablet TAKE 1 TABLET BY MOUTH EVERY 8 HOURS FOR 3 DOSES. TAKE ONE TABLET AT (1PM) THE AFTERNOON BEFORE SURGERY THEN EVERY 8 HOURS 10/13 completed Not Available Not Available Not Available clonazepam 1 mg tablet 1 TAB daily 08/18 completed Not Available Not Available Not Available metronidazo le 500 mg tablet TAKE 4 TABLETS BY MOUTH TWO TIMES A DAY FOR TWO DOSES AT 7PM AND 11PM THE NIGHT BEFORE SURGERY 10/13 completed Not Available Not Available Not Available prochlorper azine maleate 10 mg tablet TAKE ONE TABLET BY MOUTH EVERY 6 HOURS NEEDED FOR NAUSEA 09/21 completed Not Available Not Available Not Available ciprofloxac in 500 mg tablet TAKE ONE TABLET BY MOUTH TWICE A DAY 09/21 completed Not Available Not Available Not Available doxycycline monohydrate 100 mg tablet 11/18 completed Not Available Not Available Not Available lidocaine-p rilocaine 2.5 %-2.5 % topical cream APPLY TO THE SKIN ONCE DIRECTED 09/21 completed Not Available Not Available Not Available magnesium gluconate 12.5 mg magnesium (250 mg) tablet TAKE TWO TABLETS BY MOUTH EVERY DAY active Not Available Not Available No t Available venlafaxine 100 mg tablet Take 1 by mouth twice daily 2014 active Not Available Not Available Not Avai lable Vitamins B Complex tablet take 1 tablet daily; Dr Mack, sleep medicine 2019 active Not Available Not Available Not Avai lable cyanocobala min (vit B-12) 500 mcg tablet TAKE ONE TABLET BY MOUTH EVERY MORNING active Not Available Not Available No t Available Zoloft 50 mg tablet 1.5 tab QD 01/14 completed Not Available Not Available Not Available Celexa 20 mg tablet 1 TAB qhs 01/30 completed Not Available Not Available Not Available venlafaxine 37.5 mg tablet Take 1 by mouth twice daily 2014 active Not Available Not Available Not Avai lable Effexor XR 150 mg capsule,ext ended release 1 TAB twice daily 11/24 completed Not Available Not Available Not Available Concerta 36 mg tablet,exte nded release Take 1 tab by mouth daily 05/27 completed Not Available Not Available Not Available indomethaci n 25 mg capsule take 1 capsule three times a dayas needed for foot pain 07/24 completed Not Available Not Available Not Available diclofenac potassium 50 mg tablet Take 1 by mouth twice daily 12/10 completed Not Available Not Available Not Available gabapentin 300 mg capsule Take 1 cap three times daily PRN 09/09 completed Not Available Not Available Not Available EpiPen 1:1000 inj lavon 0.3mg once 11/22 completed Not Available Not Available Not Available bisacodyl 5 mg tablet,zurdo yed release TAKE IT DIRECTED FOR COLONOSCO PY PREP 09/21 completed Not Available Not Available Not Available Indocin 50 mg capsule 1 CAP three times daily 2014 active Not Available Not Available Not Avai lable polyethylen e glycol 3350 17 gram/dose oral powder TAKE PER COLONOSCO PY BOWEL PREP DIRECTION S 09/21 completed Not Available Not Available Not Available neomycin 500 mg tablet TAKE 4 TABLETS BY MOUTH AT 7PM. AND 4 TABLETS AT 11PM. THE NIGHT BEFORE SURGERY 10/13 completed Not Available Not Available Not Available Zoloft 100 mg tablet take 1 tab daily 09/09 completed Not Available Not Available Not Available fluticasone propionate 50 mcg/actuati on nasal spray,suspe nsion SPRAY 1 SPRAY INTO EACH NOSTRIL ONCE A DAY active Not Available Not Available No t Available vitamin B complex capsule TAKE ONE CAPSULE BY MOUTH EVERY MORNING active Not Available Not Available No t Available amoxicillin 875 mg-potassiu m clavulanate 125 mg tablet Take 1 tablet by mouth twice a day 10/13 completed Not Available Not Available Not Available magnesium 250 mg (as magnesium oxide) tablet Take 1 tab by mouth twice daily; Dr Mack, sleep medicine 2019 active Not Available Not Available Not Avai lable buspirone 15 mg tablet 1TAB BID 10/29 completed Not Available Not Available Not Available Concerta 27 mg tablet,exte nded release 1 tab a day early afternoon 12/01 completed Not Available Not Available Not Available Flonase 50 mcg/Actuati on nasl susp 1 spray into both nostrils once a day 10/15 completed Not Available Not Available Not Available Vitamin D 50,000 unit capsule one 2times/we ek 08/31 completed Not Available Not Available Not Available enoxaparin 40 mg/0.4 mL subcutaneou s syringe 11/18 completed Not Available Not Available Not Available Flexeril 5 mg tablet 1 TAB three times daily 08/18 completed Not Available Not Available Not Available Guaifenesin -Codeine 5ML every six hours 08/05 completed Not Available Not Available Not Available Cortisporin 4 DROPS four times daily 04/27 completed Not Available Not Available Not Available NAC 600 mg capsule Take 2 capsule by mouth twice a day Take two capsules po Q AM with two additiona l capsules in the afternoon /early evening PRN for mood 10/13 completed Not Available Not Available Not Available cholecalcif taco (vitamin D3) 50 mcg (2,000 unit) tablet TAKE 1 TO 2 CAPSULES BY MOUTH DAILY active Not Available Not Available No t Available Vitamin D3 50 mcg (2,000 unit) capsule take 1 capsule daily in the summer; 2 capsules daily in the winter; Dr Mack, sleep medicine 10/13 completed Not Available Not Available Not Available oregano oil 50 mg-flaxseed oil 25 mg capsule Take by oral route. active Not Available Not Available No t Available Vitals Date Recorded Body height Body temperature Heart rate Oxygen saturation Oxygen saturation in Arterial blood by Pulse oximetry Systolic blood pressure Diastolic blood pressure Provider Name and Address Organization Details Last Updated DateTime 4 156.591 cm 98.3 [degF] 98 /min 93 % 93 % 120 mm[Hg] 84 mm[Hg] TODD ARAIZA LPN MD - [facility] 4 14:42:07 Date Recorded Body height Heart rate Respiratory rate Oxygen saturation Oxygen saturation in Arterial blood by Pulse oximetry Body temperature Systolic blood pressure Diastolic blood pressure Provider Name and Address Organization Details Last Updated DateTime 4 156.591 cm 100 /min 20 /min 97 % 97 % 97.1 [degF] 122 mm[Hg] 64 mm[Hg] Gisell murray LPN [facility] 4 15:45:27 Date Recorded Body height Body mass index (BMI) Body weight Oxygen saturation Oxygen saturation in Arterial blood by Pulse oximetry Heart rate Respiratory rate Systolic blood pressure Diastolic blood pressure Provider Name and Address Organization Details Last Updated DateTime 4 156.591 cm 31.6 kg/m2 85275.3 g 96 % 96 % 87 /min 18 /min 116 mm[Hg] 64 mm[Hg] Gisell murray LPN [facility] 4 09:15:04 Social History Question Answer Notes LastModified by Organizat ion Details LastModified Time Do You Have An Advance Directive? No [email or web address] Information n ot available 11/19/2023 Is Blood Transfusion Acceptable In An Emergency? Yes Information not available 11/19/2023 What Is Your Code Status? Full Code [email or web address] Information not available 11/19/2023 Would You Say That, In General, Your Health Is Good Information not available 11/19/2023 Women Aged 18-50 - Would You Like To Become In The Next Year? (Female Patients Only) No [email or web address] Information not available 11/19/2023 How Often Does Anyone, Including Family, Physically Hurt You? Never [email or web address] Information not available 11/19/2023 How Often Does Anyone, Including Family, Insult Or Talk Down To You? Never [email or web address] Information no t available 11/19/2023 How Often Does Anyone, Including Family, Threaten You With Harm? Never [email or web address] Information not available 11/19/2023 How Often Does Anyone, Including Family, Scream Or Curse At You? Never [email or web address] Information not available 11/19/2023 Within The Past 12 Months, You Worried That Your Food Would Run Out Before You Got Money To Buy More. Never True [email or web address] Information n ot available 11/19/2023 Within The Past 12 Months, The Food You Bought Just Didn't Last And You Didn't Have Money To Get More. Never True [email or web address] Information not available 11/19/2023 How Hard Is It For You To Pay For The Very Basics Like Food, Housing, Medical Care, And Heating? Would You Say It Is: Not Hard At All [email or web address] Information not available 11/19/2023 In The Past 12 Months, Has Lack Of Reliable Transportation Kept You From Medical Appointments, Meetings, Work Or From Getting Things Needed For Daily Living? No [email or web address] Information not available 11/19/2023 What Is Your Housing Situation Today? I Have Housing. [email or web address] Information not available 11/19/2023 How Often In The Past Year Have You Used Marijuana (including Smoking, Vaping, Dabbing, Or Edibles)? Never [email or web address] Information not available 11/19/2023 How Often In The Past Year Have You Used Prescription Medications That Were Not Prescribed To You? Never [email or web address] Information not available 11/19/2023 How Often In The Past Year Have You Taken Your Own Prescription Medication More Than The Way It Was Prescribed Or For Different Reasons Than Its Intended Purpose? Never [email or web address] Information not available 11/19/2023 How Often In The Past Year Have You Used Other Drugs (for Example, Heroin, Cocaine, Meth, Salvia, Inhalants)? Never [email or web address] Information not available 11/19/2023 Have You Ever Used IV Drugs? No [email or web address] Information not available 11/19/2023 Date Of Most Recent SBINS 11/19/2023 [email or web address] Information not available 11/19/2023 Do You Have A Medical Power Of Pattern And Chain Maker? No [email or web address] Information not available 11/19/2023 Sex: Female Functional Status None recorded. Mental Status None recorded. Family History Relationship Description Onset Age of this Age Resolved Age Notes Notes:*Problem: Family Histo ry of: Medical History No medical history recorded. Gynecological HistoryNo gynecological history recorded. Obstetrics History GPAL:G 0 P 0 0 0 0 Immunizations Vaccine Type Date Status Provider Name and Address Organization Details Recorded Time Td (adult), 2 Lf tetanus toxoid, preservative free, adsorbed 08/01/2020 completed Not Available [facility] 04/23/2023 06:09:24 Tdap 07/02/2010 completed Not Available [facility] 06:09:24 COVID-19, mRNA, LNP-S, PF, 100 mcg/0.5mL dose or 50 mcg/0.25mL dose 07/18/2021 completed Not Available [facility] 04/23/20 23 06:09:24 COVID-19, mRNA, LNP-S, PF, 100 mcg/0.5mL dose or 50 mcg/0.25mL dose 09/14/2020 completed Not Available [facility] 04/23/20 06:09:24 COVID-19, mRNA, LNP-S, PF, 100 mcg/0.5mL dose or 50 mcg/0.25mL dose 10/12/2020 completed Not Available [facility] 04/23/20 06:09:25 Influenza, high-dose, quadrivalent, PF 03/27/2023 completed Not Available [facility] 06/25/2023 05:33:05 COVID-19, mRNA, LNP-S, PF, alfredo-sucrose, 30 mcg/0.3 mL 03/27/2023 completed Not Available [facility] 06/25/2023 05:33:05 Past Encounters Encounter ID Performer Location Encounter Start Date Encounter Closed Date Diagnosis/Indication Diagnosis SNOMED-CT Code [id number] NEETA VALDEZ, [address] [address] 09/22/2023 14:07:59 09/22/2023 15:16:35 Nasal congestion [id number] [id number] JUMA TOBIAS, [address] [address] 10/14/2023 15:28:55 10/14/2023 16:40:36 Deep incisional surgical site infection 018965225 Adult heal th examination 915600138 [id number] JUMA TOBIAS, [address] [address] 11/19/2023 08:40:19 11/19/2023 13:22:44 Malignant tumor of cecum 460847013 Abdominal pain 30304915 Adult heal th examination 877597574 Postmenopausal state 214 66611 Health Concerns Section Related Observation LastModified by Organization Detai ls LastModified Time None Recorded Concern Status LastModified by Organization Details LastModified Time None Recorded Advance Directives Directive N: Payers Encounter Date Sequence Insurance Name Policy Number Policy Copeland Covered Member ID Copeland Member ID Guarantor Name 09/22/2023 1 MEDICARE-[place] - PART A - [facility] (MEDICARE) Blanca L Le [id number] Blanca L Le 09/22/2023 2 [facility] (MEDICAID) Blanca L Le [id number] Blanca L Le 10/14/2023 1 MEDICARE-[place] - PART A - [facility] (MEDICARE) Blanca L Le [id number] Blanca L Le 10/14/2023 2 [facility] (MEDICAID) Blanca L Le [id number] Blanca L Le 11/19/2023 1 MEDICARE-[place] - PART A - [facility] (MEDICARE) Blanca L Le [id number] Blanca L Le 11/19/2023 2 [facility] (MEDICAID) Blanca L Le [id number] Blanca L Le Notes Date Note Type Note Provider Name and Address Organization Details Recorded Time 09/22/2023 text/html HPI Notes: 67-year-old woman here for complaints of sinus congestion, sinus pressure and pressure in her right ear that developed Wednesday night, clear nasal discharge she is not sure if this is allergies or sinus infection. Denies shortness of breath cough or fever. Reports vertigo only when she lies down? has been unable to use 1st generation antihistamines? they keep me awake. Finished last chemotherapy for cancer of the appendix/cecum 08/06/23 and plans to have a surgical resection at [facility] 09/27. [address], [place], [address], [facility]. 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 1 week follow up was recommended here for evaluation of blood pressure, which was elevated during her hospitalization, and for recheck of labs, for low K and Mg. She is on Lovenox x 28d post-op, which she/daughter are self-administering. In the interim she developed abdominal incision infection, which tested positive for E. coli, and she was admitted to [facility] overnight 10/07- for I&D and IV ceftriaxone, and discharged home on po doxycycline. CT showed no deep space or intra-abdominal fluid collections. She had labs repeated at follow up appt with Dr Garcia on 10/10 and reports they were normal. She is scheduled for follow up with hem/onc and Dr Lindquist (Urology) on 10/29/23 and surgery team (Dr Garcia) on 11/01/[address]. [address] Garcia also wanted her to be followed by wound care, either at [facility] or closer to where Blanca is living. Blanca does not believe that referral has been generated yet. Today Blanca reports wound site feeling significantly better-reduced pain, no foul-smelling discharge, no fevers or chills. JUMA JOHNSON, FEDER[place]- [address], [place], [address], [facility]. 10/14/2023 19:39:20 11/19/2023 text/html HPI Notes: Blanca presents for her annual preventive care exam. She recently completed chemotherapy and surgery for cancer of the cecum, with q3m surveillance scheduled. Over the past few days, including today, she has been experiencing bloating and pain in her right mid abdomen, for which she has been taking GasX with only partial relief. JUMA JOHNSON, FEDERICO- [address], [place], [address], [facility]. 11/23/2023 10:12:00 OBGyn Episode No OBEpisode recorded.
--- OUTSIDE RECORDS SUMMARY | 2024-01-26 03:06 | XMS_ITS | Continuity of Care Document ---
Author Organization [facility] Address [address] [place] [address] Care Team Providers Care Pulmonary Nurse Practitioner Name Role Phone CHRISTOPHER CONCEPCION Hematology/Oncology [phone] ARIANA GARCIA Colorectal Surgeon [phone] STACEY CRUMP Corn Breeder [phone] Assessment No assessment recorded. Plan of Treatment Reminders Order Date Submit Date Provider Last Modified By Organization Details Last Modified Time Details Appointments Annual [facility] ss Exam 40 2024 09:00A M Not available Not available Not available Lab HbA1c (hemog lobin A1c), blood 2023 024 [email or web address] [facility] (Registration ), [address] [place] [address] [place], [address], 11/26/2023 09:28:53 lipid panel, serum 2023 024 [email or web address] [facility] (Registration ), [address] [place] [address] [place], [address], 11/26/2023 09:29:03 TSH, serum, reflex free T4 2023 024 [email or web address] [facility] (Registration ), [address] [place] [address] [place], [address], 11/26/2023 09:29:14 Referral None record ed. Procedures None record ed. Surgeries None record ed. Imaging DEXA 2023 024 [email or web address] [facility] (Radiology), [address] [place] [address] [place], [address], 11/22/2023 16:23:39 Medication Orders None record ed. Patient TargetsNo targets recorded. Patient InstructionsNo instructions recorded. Reason for Referral Referring Physician: Juma Johnson, Family Medicine, Encounter Date: 10/14/2023 Results Created Date Observation Date Name Description Value Unit Range Abnormal Flag LastModifiedBy Organization Detail LastModifiedTime 11/29/19 24 11/29/2023 bone densi tomet ry imagi ng rpt Patien t Name: Ruddy Ch Unit #: [id number] Loc: DI Orderi ng Provid er: Ramos villagomez-Marco wEricaViniciusmike farias Accoun t #: [id number] Status : REG CLI Primar y Care [...] minera l densit y. Ordere d By: Vinicius Benavides CC: ------ ------ ------ ------ ------ ------ ------ ------ ------ ------ ------ ------ - Dictat ed By: Alessia Jeffrey [id number] Transc ribed By: Tati Lazo 131 This is privil eged, confid ential inform ation intend ed only for the provid er named. Any use or distri bution by any person other than this provid er is strict ly prohib ited. If you receiv e this report in error, please notify us immedi ailynly at [phone] and return the origin al report to us at the addres s above. Thank- you. lilian [facility] [address], [place], [address] 12/06/2023 15:04:08 Result Notes None recorded. Problems Name Status Onset Date Resolution Date Notes Provider Name and Address Organization Details Recorded Time Major depression, single episode Active 2010 Problem Code: F32.9; Problem Code Type: ICD-10; Not Available [facility] 3 05:02:40 Stress Active 2010 Problem Code: F43.9; Problem Code Type: ICD-10; Not Available [facility] 3 05:02:40 Posttraumatic stress disorder Active 2012 Problem Code: F43.10; Problem Code Type: ICD-10; FEDERICO QUINTANILLA-SHASHANK [address], [place], [address] , [facility]. 4 17:37:22 Sleep apnea Active 201406/09/2020 - Comments only - Juma RUBIO - Henok Mack [facility] 06/05/2020: uses CPAP, with oral appliance as backup. Problem Code: G47.30; Problem Code Type: ICD-10; Not Available [facility] 3 05:02:40 Pain in right foot Active 2014 Problem Code: M79.671; Problem Code Type: ICD-10; Not Available [facility] 3 05:02:40 Attention deficit hyperactivity disorder Active 2014 Problem Code: F90.9; Problem Code Type: ICD-10; JUMA LIM, CONCHE OPERATOR-BC [address], [place] [address] , [facility] 4 17:36:24 Allergic rhinitis Active 2014 Problem Code: J30.9; Problem Code Type: ICD-10; JUMA LIM, CONCHE OPERATOR-BC [address], [address] 4 17:36:17 Cataract Active 2015 Problem Code: H26.9; Problem Code Type: ICD-10; Not Available [facility] 3 05:02:41 Anxiety Active 201510/19/2021 - Comments only - Juma CABALLERO-SHASHANK - - PHQ-9 equals 13, BRIDGETT-7 equals 10 today. - We discussed the option of NAC, which she is interested in trying. Suggested 600 mg, 2 p.o. every morning, and additional 2 p.o. nightly as needed. Problem Code: F41.8; Problem Code Type: ICD-10; JUMA LIM, CONCHE OPERATOR-BC [address], [facility] [address] , [facility] 4 17:36:20 Borderline personality disorder Active 2015 Problem Code: F60.3; Problem Code Type: ICD-10; JUMA LIM, CONCHE OPERATOR-BC [address], [facility] [address] , [facility] 4 17:36:29 Adult health examination Active 201510/15/2022 - Comments only - Juma BRANDONP-BC - - Colonoscopy ordered at [facility] (see DIVERTICULITI S, COLON POLYPS) - Mammogram ordered at [facility], per her preference (relative works at [facility] Radiology) - Discussed SHingrix, declines today - Pap due 2023 - Does not qualify for LDCT lung based on py history - Advance Directives paperwork given today - BMP drawn today Problem Code: Z00.00; Problem Code Type: ICD-10; Not Available [facility] 3 05:02:41 Headache Active 2016 Problem Code: R51; Problem Code Type: ICD-10; Not Available [facility] 3 05:02:41 Vitamin D deficiency Active 201908/01/2020 - Comments only - Juma BRANDONP-BC - - Encouraged her to take vitD supplements regularly Problem Code: E55.9; Problem Code Type: ICD-10; JUMA LIM CONCHE OPERATOR-[address], [place], [address] , [facility] 4 17:36:58 Fatigue Active 201908/01/2020 - Comments only - Juma BRANDONP-BC - - Will check TSH and cbc today Problem Code: R53.83; Problem Code Type: ICD-10; Not Available [facility] 3 05:02:41 Spasm Completed 201911/19/2023 08/01/2020 - Comments only - Juma BRANDONP-BC - - Encouraged her to take magnesium supplement regularly, as this seems to help with leg cramps Problem Code: R25.2; Problem Code Type: ICD-10; FEDERICO QUINTANILLA-SH[address], [place], [address] , [facility] 4 17:33:54 Acute vaginitis Completed 202011/19/2023 08/01/2020 - Comments only - Juma BRANDONP-BC - - Wet prep: pH = 5, negative whiff, no clue cells seen, no hyphae or budding yeast seen on EMELYN slide. - Will send VPS for confirmation, given pt's recent GI symptoms, followed by new onset vaginal burning and discharge. Problem Code: N76.0; Problem Code Type: ICD-10; JUMA LIM, CONCHE OPERATOR-BC [address], [place], [address] , [facility] 4 17:35:50 Diarrhea Active 2020 Problem Code: R19.7; Problem Code Type: ICD-10; Not Available [facility] 3 05:02:42 Abnormal weight gain Completed 202011/19/2023 Problem Code: R63.5; Problem Code Type: ICD-10; JUMA FINLEY-Bertram LIM, [facility]-BC [address], [place], [address] , [facility] 4 17:36:11 Abdominal pain Active 2021 Problem Code: R10.9; Problem Code Type: ICD-10; Not Available [facility] 3 05:02:42 Disorder of intestine Completed 202111/19/2023 10/19/2021 - Comments only - Juma Johnson [facility]- - - Colonoscopy has been ordered at [facility], as above. Problem Code: K63.89; Problem Code Type: ICD-10; Removal Reason: Dx'd with cancer of cecum; new problem generated JUMA FINLEY-Bertram LIM, CONCHE OPERATOR-BC [address], [place], [address] , [facility] 4 17:35:23 Diverticuliti s of intestine Completed 202102/17/2023 Problem Code: K57.92; Problem Code Type: ICD-10; Not Available [facility] 4 05:38:00 Prediabetes Active 202110/19/2021 - Comments only - Juma BRANDONP-BC - - A1c was 5.9 at last years annual. We will repeat serum A1c with her other labs, and follow-up with results. -She will be eligible for a second COVID booster in early November. -She declines Shingrix. -All other preventive care is up-to-date at this time. -Follow-up in 1 year. Problem Code: R73.03; Problem Code Type: ICD-10; FEDERICO QUINTANILLA-SH[address], [place], [address] , [facility] 4 17:37:27 Residual hemorrhoidal skin tags Active 2021 Problem Code: K64.4; Problem Code Type: ICD-10; Not Available [facility] 3 05:02:43 Polyp of colon Completed 202111/19/2023 Problem Code: K63.5; Problem Code Type: ICD-10; FEDERICO QUINTANILLA-SHASH[address], [place], [address] , [facility] 4 17:34:19 Diverticula of intestine Active 202110/15/2022 - Comments only - Juma BRANDONP- - - She was able to self manage a previous flare while in [place] about 2 months ago, without ER visit or any treatment. I did ask her to send a picture of the supplement that she is taking, which she feels is helping her stool consistency and controlling her bowel symptoms. -1 year follow-up colonoscopy ordered as above. Problem Code: K57.90; Problem Code Type: ICD-10; FEDERICO QUINTANILLA-SHASH[address], [place], [address] , [facility] 4 17:36:37 Osteoarthriti s Active 202210/15/2022 - Comments only - Juma BRANDONP-BC - - Discussed treatment options for hand OA, including po/topical NSAIDS or other topicals, exercises, hand PT/OT, ortho referral. SHe would like to start with exercises and topicals. - Gave hand OA handout, suggest topical diclofenac, arnica, or CBD - Can consider hand xrays Problem Code: M19.90; Problem Code Type: ICD-10; JUMA JACKSON REW, CONCHE OPERATOR-BC [address], [place], [address] , [facility] 4 17:36:49 Acquired trigger finger Active 2022 Problem Code: M65.30; Problem Code Type: ICD-10; Not Available [facility] 3 05:02:43 Disorder of skin and/or subcutaneous tissue Active 202210/15/2022 - Comments only - Juma Johnson CONCHE OPERATOR-BC - - Lesion is palpable, but skin not diffrerent from surrounding skin. No increased warmth, erythema, fluctuance. - She will keep an eye on it and let me know if it is changing in size or appearance, as I would refer her to derm or ENT for biopsy at that time. Problem Code: L98.9; Problem Code Type: ICD-10; Not Available [facility] 3 05:02:43 Screening mammography Active 2022 Problem Code: Z12.31; Problem Code Type: ICD-10; Not Available [facility] 3 05:02:44 Acute stress disorder Completed 201003/10/2023 Problem Code: 308.9; Problem Code Type: ICD-9; Not Available [facility] 3 05:02:44 Major depressive disorder Completed 201003/10/2023 Not Available [facility] 3 05:02:44 Preoperative cardiovascula r examination Completed 201508/01/2020 Problem Code: Z01.810; Problem Code Type: ICD-10; Not Available [facility] 3 05:02:44 Malignant tumor of cecum Active [address] shows tumor has shrunk and is operable. Pre-op appt 09/09/23, surgery scheduled 09/28/23. [facility] Oncology f/u 08/09/23: Had restaging CT 06/04/23, which was read as stable. Current plan is 4 more cycles of Folfox, followed by restaging and re-evaluation for surgery. 04/02/2023 - Comments only - Juma RUBIO - - We reviewed her pathology report, and the treatment recommendatio ns to the best my ability. 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 -I encouraged her to write down [...] C18.0; Problem Code Type: ICD-10; [address], [place], [address] , [facility] 4 12:00:28 Deep incisional surgical site infection Completed 202311/19/2023 Removal Reason: Resolved [address]NE [address], [place], [address] , [facility] 4 17:35:37 Family history of Von Willebrand disease Active 2023 Pt tested negative [address]NE [address], [place], [address] , [facility] 4 17:33:25 Screening for osteoporosis Active [address], [place], [address] , [facility] 4 17:37:47 Problem Notes None recorded. Procedures Surgical History Date Name Laterality Status Provider Name and Address Organization Details Recorded Time 4 right colectomy completed RICHAR Stovall, [place] - [facility]. 11/16/2023 08:38:11 Imaging Results None recorded. Procedure Notes None recorded. Medical Equipment None Reported. Allergies Allergen ID Allergen Name Allergen Category Reaction Reaction Severity Criticality Documentation Date Start Date Code Code System Note Provider Name and Address Organization Details Recorded Time 73067 Bactrim medicatio n hives moderate Not available 04/23/20232014 15496 9 RxNorm HIVES Not Available [facility] 3 16:22:16 89326 Keflex medicatio n hives moderate Not available 04/23/20232014 58476 7 RxNorm hives Not Available [facility] 3 16:22:16 Medications Name Sig Start Date [...] Available Vitals Date Recorded Body height Body mass index (BMI) Body weight Oxygen saturation Oxygen saturation in Arterial blood by Pulse oximetry Heart rate Respiratory rate Systolic blood pressure Diastolic blood pressure Provider Name and Address Organization Details Last Updated DateTime 4 156.591 cm 31.6 kg/m2 90675.3 g 96 % 96 % 87 /min 18 /min 116 mm[Hg] 64 mm[Hg] Gisell murray LPN [place] - [facility] 4 09:15:04 Social History Question Answer Notes LastModified by Organizat ion Details LastModified Time Do You Have An Advance Directive? No [email or web address] Information n ot available 11/19/2023 Is Blood Transfusion Acceptable In An Emergency? Yes [email or web address] Information not available 11/19/2023 What Is Your Code Status? Full Code [email or web address] Information not available 11/19/2023 Would You Say That, In General, Your Health Is Good Information not available 11/19/2023 Women Aged 18-50 - Would You Like To Become In The Next Year? (Female Patients Only) No [email or web address] Information not available 11/19/2023 How Often Does Anyone, Including Family, Physically Hurt You? Never [email or web address] Information not available 11/19/2023 How Often Does Anyone, Including Family, Insult Or Talk Down To You? Never [email or web address] Information no t available 11/19/2023 How Often Does Anyone, Including Family, Threaten You With Harm? Never [email or web address] Information not available 11/19/2023 How Often Does Anyone, Including Family, Scream Or Curse At You? Never [email or web address] Information not available 11/19/2023 Within The Past 12 Months, You Worried That Your Food Would Run Out Before You Got Money To Buy More. Never True [email or web address] Information n ot available 11/19/2023 Within The Past 12 Months, The Food You Bought Just Didn't Last And You Didn't Have Money To Get More. Never True [email or web address] Information not available 11/19/2023 How Hard Is It For You To Pay For The Very Basics Like Food, Housing, Medical Care, And Heating? Would You Say It Is: Not Hard At All [email or web address] Information not available 11/19/2023 In The Past 12 Months, Has Lack Of Reliable Transportation Kept You From Medical Appointments, Meetings, Work Or From Getting Things Needed For Daily Living? No [email or web address] Information not available 11/19/2023 What Is Your Housing Situation Today? I Have Housing. [email or web address] Information not available 11/19/2023 How Often In The Past Year Have You Used Marijuana (including Smoking, Vaping, Dabbing, Or Edibles)? Never [email or web address] Information not available 11/19/2023 How Often In The Past Year Have You Used Prescription Medications That Were Not Prescribed To You? Never [email or web address] Information not available 11/19/2023 How Often In The Past Year Have You Taken Your Own Prescription Medication More Than The Way It Was Prescribed Or For Different Reasons Than Its Intended Purpose? Never [email or web address] Information not available 11/19/2023 How Often In The Past Year Have You Used Other Drugs (for Example, Heroin, Cocaine, Meth, Salvia, Inhalants)? Never [email or web address] Information not available 11/19/2023 Have You Ever Used IV Drugs? No [email or web address] Information not available 11/19/2023 Date Of Most Recent SBINS 11/19/2023 [email or web address] Information not available 11/19/2023 Do You Have A Medical Power Of Jet Inspector? No [email or web address] Information not available 11/19/2023 Sex: Female Functional [...] preservative free, adsorbed 08/01/2020 completed Not Available [facility] 04/23/2023 06:09:24 Tdap 07/02/2010 completed Not Available [facility] 06:09:24 COVID-19, mRNA, LNP-S, PF, 100 mcg/0.5mL dose or 50 mcg/0.25mL dose 07/18/2021 completed Not Available [facility] 04/23/20 06:09:24 COVID-19, mRNA, LNP-S, PF, 100 mcg/0.5mL dose or 50 mcg/0.25mL dose 09/14/2020 completed Not Available [facility] 04/23/20 06:09:24 COVID-19, mRNA, LNP-S, PF, 100 mcg/0.5mL dose or 50 mcg/0.25mL dose 10/12/2020 completed Not Available [facility] 04/23/20 06:09:25 Influenza, high-dose, quadrivalent, PF 03/27/2023 completed Not Available [facility] 06/25/2023 05:33:05 COVID-19, mRNA, LNP-S, PF, alfredo-sucrose, 30 mcg/0.3 mL 03/27/2023 completed Not Available [facility] 06/25/2023 05:33:05 Past Encounters Encounter ID Performer Location Encounter Start Date Encounter Closed Date Diagnosis/Indication Diagnosis SNOMED-CT Code [id number] JUMA TOBIAS, [facility] [address] 11/19/2023 08:40:19 11/19/2023 13:22:44 Malignant tumor of cecum 965708468 Abdominal pain 88849142 Adult heal th examination 944459506 Postmenopausal state 274 27674 Health Concerns Section Related Observation LastModified by Organization Detai ls LastModified Time None Recorded Concern Status LastModified by Organization Details LastModified Time None Recorded Payers Encounter Date Sequence Insurance Name Policy Number Policy Copeland Covered Member ID Copeland Member ID Guarantor Name 11/19/2023 1 [place] - [facility] (MEDICARE) Blanca Lujan [id number] Blanca Lujan 11/19/2023 2 [facility] (MEDICAID) Blanca Lujan [id number] Blanca Lujan Notes Date Note Type Note Provider Name and Address Organization Details Recorded Time 11/19/2023 text/html HPI Notes: Blanca presents for her annual preventive care exam. She recently completed chemotherapy and surgery for cancer of the cecum, with q3m surveillance scheduled. Over the past few days, including today, she has been experiencing bloating and pain in her right mid abdomen, for which she has been taking GasX with only partial relief. JUMA JOHNSON, CONCHE OPERATOR- [address], [place], [address], [facility]. 11/23/2023 10:12:00 OBGyn Episode No OBEpisode recorded.
--- OUTSIDE RECORDS SUMMARY | 2024-01-26 03:07 | XMS_ITS | Encounter Summary ---
Author Organization [facility] Address [facility] [place] [address] Care Team Providers Care Supply Chain Buyer Name Role Phone SharicathydahliaEliza Hina Primary Care Provider [phone] Encounter Details Date Type Department Care Team (Late st Contact Info) Description 10/06/2023 [place] [id number] Fritz Gentile MD [facility] [place] [address] Social History Tobacco Use Types Packs/Day Years Used Date Smoking Tobacco: Former Cigarettes Smokeless Tobacco: Never Alcohol Use Standard Drinks/Week Comments Yes 0 (1 standard drink = 0.6 oz pur e alcohol) few times yearly [facility] Utilities Answer Date Recorded In the past 12 months has e electric, gas, oil, or water company threatened to [...] place to sleep or slept in a fpc (including now)? No 09/29/2023 [facility] IPV Inpatient Questions Answer Date Recorded Does Anyone Try to Keep You From Having Contact with Others or Doing Things Outside Your Home? no 10/06/2023 Feels Threatened by Someone no 09/13 Feels Unsafe at Home or Work/School no 10/06/2023 Physical Signs of Abuse Present no 10/06/2023 Sex and Gender Information Value Date Recorded Sex Assigned at Not on file Gender Identity Not on file Sexual Orientation Not on file documented as of this encounter Miscellaneous Notes * Telephone Encounter - Fritz Gentile MD - 10/06/2023 7:56 AM EDT Patient Call Received page that patient had called (prior to clinic hours). Pt chart reviewed, has recently had surgery with general surgery but has no recent orthopaedic surgery. Call returned - pt states has pus coming out of abdominal incision and called to speak to general surgery. I informed her that I was an orthopaedic surgery resident and was unsure why her call had been forwarded to orthopaedic surgery. I recommended she call the general surgery clinic at [phone] (based on discharge paperwork) shortly after 8AM to be routed to the appropriate care provider. I instructed the patient to present to the emergency department should she have any acute worsening. Fritz Gentile MD PGY1 Orthopaedic Surgery 10/06/2023 8:00 AM documented in this encounter Plan of Treatment Upcoming Encounters Date Type Department Care Team (Late st Contact Info) Description 01/28/2024 10:30 AM EDT Office Visit Hematology/Oncolog y at [address] [address] Derek Lindquist MD [facility] [place] [place] [address] Ann Tello [address] [place] [address] 03/24/2024 1:00 PM EDT Hospital Encounter Gastroenterology at [place] [phone] Shilo Lopez MD [facility] [place] [address] 03/24/2024 1:00 PM EDT - 03/24/2024 1:45 PM EDT [place] [phone] Shilo Lopez MD [facility] [place] [address] COLONOSCOPY, DIAGNOSTIC (WRVU 3.26) Scheduled Procedures Name Priority Associated Diagnoses Date/Ti me COLONOSCOPY, DIAGNOSTIC (WRVU 3.26) Procedure: Colonoscopy Indication: Malignant neoplasm of colon, unspecified part of colon and History of partial colectomy Sedation: IVCS Timeframe: within 2 weeks Specific provider: first available OV needed: No Anticoagulation status: no documented anticoagulation use 03/24/2024 1:00 PM EDT documented as of this encounter Visit Diagnoses Not on filedocumented in this encounter Care Teams Supply Chain Buyer Relationship Specialty Start Date End Date Hina Johnson [address] [place], [place] [address] PCP - General Family Medicine 06/25/23 documented as of this encounter
--- OUTSIDE RECORDS SUMMARY | 2024-01-26 03:07 | XMS_ITS | Encounter Summary ---
Author Organization [facility] Address [facility] [place] [address] Care Team Providers Care Tire Fabricator Name Role Phone CristobalEliaz Hina Primary Care Provider [phone] Encounter Details Date Type Department Care Team (Late st Contact Info) Description 10/07/2023 [place] [phone] Ema Garcia MD [facility] [place] [address] Adenocarcinoma, appendix Social History Tobacco Use Types Packs/Day Years Used Date Smoking Tobacco: Former Cigarettes Smokeless Tobacco: Never Alcohol Use Standard Drinks/Week Comments Yes 0 (1 standard drink = 0.6 oz pur e alcohol) few times yearly [facility] Utilities Answer Date Recorded In the past [...] place to sleep or slept in a fci (including now)? No 09/29/2023 IPV Inpatient Questions Answer Date Recorded Does [...] on file documented as of this encounter Plan of Treatment Upcoming Encounters Date Type Department Care Team (Late st Contact Info) Description 01/28/2024 10:30 AM EDT Office Visit Hematology/Oncolog y at [address] [phone] Derek Lindquist MD [facility] [place] [address] Ann Tello [address] [place] [address] 03/24/2024 1:00 PM EDT Hospital [place] [address] Shilo Lopez MD [facility] [place] [address] 03/24/2024 1:00 PM EDT - 03/24/2024 1:45 PM EDT [place] [phone] Shilo Lopez MD [facility] [place] [address] COLONOSCOPY, DIAGNOSTIC (WRVU 3.26) Scheduled Procedures Name Priority Associated Diagnoses Date/Ti me COLONOSCOPY, DIAGNOSTIC (WRVU 3.26) Procedure: Colonoscopy Indication: Malignant neoplasm of colon, unspecified part of colon and History of partial colectomy Sedation: IVCS Timeframe: within 2 weeks Specific provider: first available OV needed: No Anticoagulation status: no documented anticoagulation use 03/24/2024 1:00 PM EDT documented as of this encounter Results * (ABNORMAL) CRP, acute inflammation (10/11/2023 11:34 AM EDT) C-Reactive Protein 45.0(H) <=4.9 mg/L [facility] Blood 10/11/2023 11:3 4 AM EDT 10/11/2023 11:43 AM EDT Narrative Resulting Agency Comment Spec In Lab Ema Garcia MD CHEMISTRY ORDERABLES [facility] [place] [address] * (ABNORMAL) Comprehensive metabolic panel (non-fasting) (10/11/2023 11:34 AM EDT) Glucose 118 65 - 199 mg/dL [facility] Comment:Diabetes: >=200 mg/d L plus symptoms Blood Urea Nitrogen 16 8 - 18 mg/dL [facility] Creatinine 0.62(L) 0.70 - 1.20 mg/dL [facility] Sodium 142 135 - 145 mmol/L [facility] Potassium 4.6 3.5 - 5.0 mmol/L [facility] Comment: Please note: ??Patients with WBC >100,000 may have falsely elevated Potassium levels. ??For accurate Potassium quantification in these patients send serum separator tube (gold top) for subsequent determinations. ??Contact the Clinical Chemistry Laboratory if there are any questions. Chloride 103 98 - 107 mmol/L [facility] Carbon Dioxide 26 22 - 31 mmol/L [facility] Anion Gap 13 5 - 15 mmol/L [facility] Calcium 9.8 8.5 - 10.5 mg/dL [facility] Protein, Total 7.1 6.1 - 8.0 g/dL [facility] Albumin 4.0 3.2 - 5.2 g/dL [facility] Aspartate Aminotransferase 17 0 - 30 unit/L [facility] Alanine Aminotransferase 23 0 - 30 unit/L [facility] Alkaline Phosphatase 81 35 - 105 unit/L [facility] Bilirubin, Total <0.2(L) 0.2 - 1.3 mg/dL [facility] Est Glomerular Filtration Rate 99 >=60 mL/min/1. 73 m?? [facility] Comment: This patient's estimated GFR was [...] In Lab Ema Garcia MD CHEMISTRY ORDERABLES [facility] [place] [address] documented in this encounter Visit Diagnoses Diagnosis Adenocarcinoma, appendix Malignant neoplasm of appendix vermiformis documented in this encounter Care Teams Tire Fabricator Relationship Specialty Start Date End Date Hina Johnson [address] [place] [address] PCP - General Family Medicine 06/25/23 documented as of this encounter
--- OUTSIDE RECORDS SUMMARY | 2024-01-26 03:07 | XMS_ITS | Encounter Summary ---
Author Organization [facility] Address [facility] [place] [address] Care Team Providers Care Clinical Orthoptist Name Role Phone EloisaAlvaroHina Primary Care Provider [phone] Encounter Details Date Type Department Care Team (Latest Contact Info) Description 11/02/2023 Multidisciplinary Ca re Committee Hematology and Oncology at [facility] [place] [phone] Derek Lindquist MD [facility] [place] [address] Social History Tobacco Use Types Packs/Day Years Used Date Smoking Tobacco: Former Cigarettes Smokeless Tobacco: Never Alcohol Use Standard Drinks/Week Comments Not Currently 0 (1 standard drink = 0.6 oz pur e alcohol) few times yearly [facility] Utilities Answer Date Recorded In the past 12 months has e Social Strategy 1, gas, oil, or water company threatened to [...] place to sleep or slept in a prison (including now)? No 09/29/2023 DH IPV Inpatient [...] on file documented as of this encounter Progress Notes * Derek Lindquist MD - 11/02/2023 6:34 AM EDT GI - Tumor Board Note Date Presented: 11/02/2023 Presenting Physician: Ameena Diagnosis/Tumor Site: colon Is this Metastatic Disease: No Synopsis of History/HPI: 68 yo, with adenocarcinoma of the appendix/cecum. She had been diagnosed with diverticulitis of the descending colon in 09/2021. CT at that time also showed wall thickening of the base of the cecum adjacent to the appendix. She was referred for colonoscopy which was done in 10/2021. She had multiple adenomatous polyps removed. A repeat colonoscopy was done in 11/2022 and again multiple adenomatous polyps were remove (20+). Following the colonoscopy she had increased RLQ pain and swelling. A CT a/p was done on 02/19/23 for evaluation. This showed a soft tissue mass in the base of the cecum with extension into the adjacent terminal ileum suspicious for neoplasm. There is communication with a multiloculated fluid collection in the right lower quadrant which involves the adjacent anterior abdominal and the ilisopsoas muscle, abscesses vs metastatic disease. There were mildly enlarged lymph nodes in the right lower quadrant. There was also a lesion in the medial aspect of the liver for which an MRI was recommended for further evaluation (this was present on the CT done in 09/2021 which is reassuring). MRI done in 04/2023 - the area in question had a benign appearance, most c/w fatty infiltration. She was referred to Dr. Garcia who presented her case to [facility] and made a referral to Dr. Lopez for further endoscopic evaluation. A lower EUS was done on 03/16/23. There was an ill-defined 4 cm hypoechoic region adjacent to the cecum, inflammatory vs malignant. Biopsies were taken and the pathology shows adenocarcinoma, MMR intact. NGS - KRAS G12D mutation, TP53, APC, TMB - [address] Garcia on 04/07/23. She discussed the case with Dr. Juarez (re: CRS and Hipec) andthe recommendation was for chemotherapy. The tumor was considered unresectable. Depending on response, we may revisit this. A restaging CT scan was done on 04/14/23, report above. The appendiceal tumor is stable. There is mild increase in regional nodes. I still have some question as to the nature of the multiloculated fluid collection (eg tumor vs infection). However, she afebrile and without an elevated white count andDrTerrie Garcia feels this represents tumor. We have made a referral to the [facility]amilial Cancer [facility] due to concern for a polyposis syndrome. Testing was performed and no mutation was seen. On 04/16/23 she began therapy with Folfox and has received 8 cycles (the last given 08/06/23). She had a CT scan done on 08/11/23 which showed evidence of continued response. The CEA normalized (14 pre-op) On 09/28/23 she underwent a right hemicolectomy. The pathology report is above - no residual diseaseseen. 18 LN's were seen, all negative. Imaging: Pathology/Histology: Adenocarcinoma, MMR proficient; pathologic CR post chemotherapy Stage:Original stage T4, Nx, Mx; ypT0N0 Clinical Data (Exams, Labs, etc.): Molecular Pathology Results:NGS - KRAS G12D mutation, TP53, APC, TMB - 7 Clinical Trial Availability: None Options Discussed: Discussed post-operative therapy. Thr group feels it is reasonable not give further chemotherapy. Recommendations: Surveillance DISCLAIMER: The patient was discussed and the tumor board made recommendations but it is ultimatelyup to the treatment provider(s) and the patient to determine the patient???s care. documented in this encounter Plan of Treatment Upcoming Encounters Date Type Department Care Team (Late st Contact Info) Description 01/28/2024 10:30 AM EDT Office Visit Hematology/Oncolog y at [address] [phone] Derek Lindquist MD [facility] [place] [address] Ann Tello APRN [address] [place] [address] DR HEMATOLOGY AND ONCOLOGY [place], [place] [id number] 03/24/2024 1:00 PM EDT Hospital Encounter [place] [phone] Shilo Lopez MD [facility] [place] [address] 03/24/2024 1:00 PM EDT - 03/24/2024 1:45 PM EDT Surgery Gastroenterology at [place] [phone] Shilo Lopez MD [facility] [place] [address] COLONOSCOPY, DIAGNOSTIC (WRVU 3.26) Scheduled Procedures Name Priority Associated Diagnoses Date/Ti ca COLONOSCOPY, DIAGNOSTIC (WRVU 3.26) Procedure: Colonoscopy Indication: Malignant neoplasm of colon, unspecified part of colon and History of partial colectomy Sedation: IVCS Timeframe: within 2 weeks Specific provider: first available OV needed: No Anticoagulation status: no documented anticoagulation use 03/24/2024 1:00 PM EDT documented as of this encounter Visit Diagnoses Not on filedocumented in this encounter Care Teams Clinical Orthoptist Relationship Specialty Start Date End Date Hina Johnson [address] [place] [address] PCP - General Family Medicine 06/25/23 documented as of this encounter
--- OUTSIDE RECORDS SUMMARY | 2024-01-26 03:07 | XMS_ITS | Encounter Summary ---
Author Organization [facility] Address [facility] [place] [address] Care Team Providers Care Estate Tax Examiner Name Role Phone SharicathydahliaEliza Hina Primary Care Provider [phone] Reason for Visit * Reason Comments Post-op Problem Encounter Details Date Type Department Care Team (Late st Contact Info) Description 10/06/2023 12:29 PM EDT - 10/06/2023 3:04 PM EDT Emergency Emergency Services at [address] [phone] Draining postoperative wound, initial encounter Discharge Disposition: Home Social History Tobacco Use Types Packs/Day Years Used Date Smoking Tobacco: Former Cigarettes Smokeless Tobacco: Never Tobacco Cessation:Counseling Given: Not Answered Alcohol Use Standard Drinks/Week Comments Yes 0 (1 standard drink = 0.6 oz pur e alcohol) few times yearly [facility] Utilities Answer Date Recorded In the past 12 months has e electric, gas, oil, or water company threatened to shut off services in your home? No 09/29/2023 Hunger Vital Sign Answer Date Recorded Within the past 12 months, y ou worried that your food would run out before you got the money to buy more. Never true 09/29/19 Within the past 12 months, t he [...] place to sleep or slept in a chcf (including now)? No 09/29/2023 DH IPV Inpatient [...] on file documented as of this encounter Last Filed Vital Signs Vital Sign Reading Time Taken Comments Blood Pressure 175/83 10/06/2023 2:25 PM EDT Pulse 86 10/06/2023 2:25 PM EDT Temperature 37.2 ??C (99 ??F) 10/06/2023 2:25 PM EDT Respiratory Rate 16 10/06/2023 2:25 PM EDT Oxygen Saturation 95% 10/06/2023 2:25 PM EDT Inhaled Oxygen Concentration - - Weight 86.2 kg (190 lb) 10/06/2023 12:35 PM EDT Height - - Body Mass Index 35.9 09/28/2023 1:34 PM EDT documented in this encounter Discharge Instructions * Discharge Instructions* Estiven Rodarte APRN - 10/06/2023 2:46 PM EDT You were seen in the emergency department and evaluated for your symptoms. You had lab work done and you received some fluids which helped your heart rate. You were given a dose of IV antibiotics andwere seen by your surgeon Dr. Garcia. Your surgeon would like you to start an oral antibiotic to be taken twice a day as directed. This is Augmentin and you should take it twice a day with food to help minimize any stomach upset. She would like you to take a picture of your wound every day and send it to her through the [facility] patient portal. There are instructions contained within this after visit summary that can help you getlogged onto that and can give you the number to call if there is any issues with it such as needinga new password. Follow-up with your primary care provider in 1 week as needed, return or seek reevaluation with anynew, worsening or concerning symptoms. Reach out to your surgeon if you have any new, worsening or concerning symptoms. Tylenol and ibuprofen can be taken as needed per package insert instructions for pain and discomfort. documented in this encounter Medications at Time of Discharge Medication Sig Dispensed Refills Start Date End Date acetaminophen (Tylenol) 500 mg tablet Take 1,000 mg by mouth every 6 hours as needed for Pain. ondansetron (Zofran) 8 mg tablet Take 1 tablet by mouth every 8 hours as needed for Nausea (Alternate with compazine). 20 tablet 04/18/2023 prochlorperazine (Compazine) 10 mg tabletIndications:Dr ug-induced nausea and vomiting Take 1 tablet by mouth every 6 hours as needed for Nausea. 30 tablet 5 04/16/2023 cholecalciferol, Vitamin D3, (Vitamin D3) 50 mcg (2,000 unit) tablet TAKE 1 TO 2 CAPSULES BY MOUTH DAILY 01/12/2023 b complex vitamins Capsule Take 1 capsule by mouth every morning. 12/30/2022 cyanocobalamin, vitamin B-12, (Vitamin B-12) 500 mcg tablet Take 500 mcg by mouth. 11/11/2021 ibuprofen (Advil) 800 mg tablet Take 800 mg by mouth as needed for Pain. methocarbamoL (Robaxin) 500 mg tablet Take 500 mg by mouth as needed. amoxicillin-clavulan ate (Augmentin) 875-125 mg tablet Take 1 tablet by mouth 2 times daily for 7 days. 14 tablet 10/06/2023 10/09/2023 enoxaparin (Lovenox) 40 mg/0.4 mL Syringe Inject 0.4 mLs subcutaneously nightly for 22 days. 8.8 mL 10/04/2023 10/26/2023 lidocaine (Lidoderm) 5% Adhesive Patch, Medicated Apply 1 patch onto the skin daily. (leave on for 12 hours and remove for 12 hours) 10/04/2023 10/28/2023 magnesium 250 mg tablet Take by mouth. 10/28/2023 Ca carb-Ca gluc-Mg ox-Mg gluco 500 mg calcium -250 mg Tablet Take 2 tablets by mouth daily. 03/30/2023 10/28/2023 documented as of this encounter Progress Notes * Juana Reardon MD - 10/06/2023 3:04 PM EDT Please see wound culture data. She may need to be switched from the Augmentin. I saw from the phonenotes that you have been in touch with the patient and plan to call her back today. documented in this encounter ED Notes * Aniyah Hawkins NRP - 10/06/2023 2:02 PM EDT Infusion complete, no signs of adverse reactions * Estiven Rodarte APRN - 10/06/2023 1:09 PM EDT ED PROVIDER NOTE Patient Name: Blanca Lujan Patient Age: 67 y.o. Patient : 1955 Encounter Date: 10/06/2023 Chief Complaint Post-op Problem History of Present Illness Blanca Lujan is a 67 y.o. female who presents for evaluation of abdominal pain, drainage. Patient is status post a laparoscopic partial colectomy on 09/28/2023. Was discharged 2 days ago. Last night noted some redness around the incision and started getting more full and swollen. Today some drainage came out of it that she reports was bloody and looked like pus. She has noticed redness around the incision and on her abdomen. Denies fever or chills. Has not taken anything for pain or discomfort today. Contacted her surgeon who recommended she get evaluated. She has been passing gas and moved her bowels this morning. Urinating without issue. No chest pain or shortness of breath, no nausea or vomiting.. Pertinent history: Colon cancer, appendiceal adenocarcinoma, ZARA, PTSD. The history is provided by the patient and EMR. Review of Systems ROS as above with pertinent positives and negatives. Medical, surgical and social history as well as medications and allergies reviewed & updated inchart as appropriate. Physical Exam BP (!) 135/124 (Patient Position: Sitting) Pulse 99 Temp 37.2 ??C (98.9 ??F) (Oral) Resp 16 Wt 86.2 kg (190 lb) SpO2 98% BMI 35.90 kg/m?? Physical Exam Constitutional: General: She is not in acute distress. Appearance: She is not toxic-appearing. HENT: Head: Normocephalic. Mouth/Throat: Mouth: Mucous membranes are moist. Pharynx: Oropharynx is clear. Cardiovascular: Rate and Rhythm: Regular rhythm. Tachycardia present. Pulmonary: Effort: Pulmonary effort is normal. No respiratory distress. Abdominal: Comments: Abdomen appears distended and rounded although she does not endorse more distention than usual. Linear vertical upper abdominal incision with surrounding erythema and fullness that is not fluctuant. Small amount of purulent drainage about an inch below the top of the incision. There is clementine rounding erythema on the abdomen as well with some mild diffuse tenderness without guarding or rebound. Musculoskeletal: General: Normal range of motion. Skin: General: Skin is warm. Capillary Refill: Capillary refill takes less than 2 seconds. Neurological: General: No focal deficit present. Mental Status: She is alert. Psychiatric: Mood and Affect: Mood normal. Behavior: Behavior normal. ED Course ED Course as of 10/06/23 1447 WedOct 06, 2023 1313 WBC(!): 10.0 1313 Hemoglobin: 12.[address] Garcia, will give 1 dose of IV antibiotic, get wound culture and follow labs 1342 Lipase(!): 62 1403 CRP(!): 110.[address] Garcia re: labs History, examination Vitals, nursing notes reviewed Diagnostics Reviewed and interpreted independently Imaging No orders to display Labs Recent Results (from the past 24 hour(s)) Urinalysis with reflex Culture Specimen: Clean Catch Urine Result Value Ref Range Glucose UA Negative Negative mg/dL Protein UA Negative Negative mg/dL Bilirubin UA Negative Negative mg/dL Urobilinogen UA Normal Normal mg/dL pH UA 7.0 5.0 - 8.0 Blood UA Negative Negative mg/dL Ketones UA Negative Negative mg/dL Nitrite UA Negative Negative Leukocytes UA Negative Negative mcL Appearance UA Clear Clear Spec [place] UA 1.015 1.006 - 1.030 Color UA Yellow Culture Reflexed No Comprehensive metabolic panel (non-fasting) Result Value Ref Range Glucose Lvl 134 65 - 199 mg/dL BUN 13 8 - 18 mg/dL Creatinine 0.59 (L) 0.70 - 1.20 mg/dL Sodium 136 135 - 145 mmol/L Potassium 4.2 3.5 - 5.0 mmol/L Chloride 99 98 - 107 mmol/L CO2 26 22 - 31 mmol/L Anion Gap 11 5 - 15 mmol/L Calcium 9.1 8.5 - 10.5 mg/dL Total Protein 7.2 6.1 - 8.0 g/dL Albumin 4.0 3.2 - 5.2 g/dL AST 23 0 - 30 unit/L ALT 29 0 - 30 unit/L Alk Phos 76 35 - 105 unit/L Total Bilirubin 0.2 0.2 - 1.3 mg/dL Estimated GFR 100 >=60 mL/min/1.73 m?? Lipase Result Value Ref Range Lipase 62 (H) 0 - 60 unit/L Lactate, plasma Result Value Ref Range Lactate 1.4 0.5 - 2.2 mmol/L Hemogram Result Value Ref Range WBC 10.0 (H) 4.0 - 9.5 x10(3)/mcL RBC 4.12 4.00 - 5.21 x10(6)/mcL Hemoglobin 12.4 11.7 - 15.5 g/dL Hematocrit 38.8 35.7 - 45.8 % MCV 94.2 82.6 - 94.4 fL MCH 30.1 27.1 - 32.0 pg MCHC 32.0 31.7 - 35.0 g/dL Platelets 303 145 - 357 x10(3)/mcL RDWSD 42.2 37.0 - 46.0 fL RDWCV 12.1 11.5 - 14.1 % MPV 8.9 7.6 - 12.9 fL Differential, Automated Result Value Ref Range Neutrophils % 72.1 % Neutr Abs (ANC) 7.23 (H) 1.70 - 6.10 x10(3)/mcL Lymphocytes % 16.9 % Lymphocytes Abs 1.7 0.9 - 3.2 x10(3)/mcL Monocytes % 6.8 % Monocyte Abs 0.7 0.3 - 0.9 x10(3)/mcL Eosinophils % 1.9 % Eosinophils Abs 0.2 0.0 - 0.4 x10(3)/mcL Basophils % 0.3 % Basophils Abs 0.0 0.0 - 0.1 x10(3)/mcL Immature Gran % 2.00 % Nini Gran Abs 0.20 (H) 0.00 - 0.04 x10(3)/mcL CRP, acute inflammation Result Value Ref Range CRP 110.2 (H) <=4.9 mg/L Medications As noted below and documented in MAR Medications acetaminophen (Tylenol) tablet 975 mg (975 mg Oral Given 10/06/23 1343) ampicillin-sulbactam (Unasyn) 3 g vial attach to sodium chloride 0.9% 100 mL Mini-Bag Plus (0 g Intravenous Stopped 10/06/23 1358) sodium chloride 0.9% 500 mL IV bolus ( Intravenous Stopped 10/06/23 1443) Procedures None MDM, Assessment and Plan MDM/PLAN: 67 y.o. female with drainage from incision as well as increasing pain and erythema with warmth after recent abdominal surgery. On initial presentation patient is afebrile and hemodynamically stable, she is tachycardic however. Physical exam notable as above. Initial plan is for labs. Her surgeon is here today so I will reach out to them. After speaking with surgeon she recommends additionally giving a dose of IV Unasyn, will follow labs and hold off on CT for now. I will give patient some IV fluids and Tylenol as well. Pertinent diagnostic findings: Labs as above, mild leukocytosis, CRP is elevated. Patient's heart rate improved with IV fluids and patient was seen by Dr. Garcia. Patient received IV Unasyn as above and her surgeon has recommended she discharge on oral Augmentin. She would also like patient to send apicture of her wound and daily through the patient portal, patient lives with her daughter and her daughter can do that. Recommended Tylenol and ibuprofen for OTC analgesia, strict return precautions and to reach out to her surgeon with any questions or concerns. Did this case involve critical care? No Patient's PCP is Hina Johnson. ASSESSMENT: 1. Draining postoperative wound, initial encounter DISPO: Discharge instructions per AVS which I have also verbally gone over with the patient Follow up with Hina Johnson in 1 week PRN Return precautions were discussed with the patient; patient expressed understanding and is in agreement with plan New Prescriptions AMOXICILLIN-CLAVULANATE (AUGMENTIN) 875-125 MG TABLET Take 1 tablet by mouth 2 times daily for 7 days. Discharge to home Estiven Rodarte APRN 10/06/23 1990 documented in this encounter Miscellaneous Notes * ED Triage - Damian Hayden RN - 10/06/2023 1:04 PM EDT Pt states that she had a tumor removal, appendectomy and a resection of colon. Surgery occurred on the and she was released on the . Pt states that Wednesday she began to experience redness andswelling of the incision site. Pt relaters that the was a burst of the site and the pus and bloodmixture came from the site. No obvious dehiscence is seen on the surface of the laceration site. HPI (Adult) Stated Reason for Visit: Pt had ABD surgery on the and believes that she has an infected incision site. History Obtained From: patient Duration (Days): 3 documented in this encounter Plan of Treatment Upcoming Encounters Date Type Department Care Team (Late st Contact Info) Description 01/28/2024 10:30 AM EDT Office Visit Hematology/Oncolog y at [address] [phone] Derek Lindquist MD [facility] [place] [address] Ann Tello APRN [address] [place] [address] [place] [address] 03/24/2024 1:00 PM EDT Hospital En[place] [phone] Shilo Lopez MD [facility] [place] [address] 03/24/2024 1:00 PM EDT - 03/24/2024 1:45 PM EDT [place] [phone] Shilo Lopez MD [facility] [place] [address] COLONOSCOPY, DIAGNOSTIC (WRVU 3.26) Scheduled Procedures Name Priority Associated Diagnoses Date/Ti me COLONOSCOPY, DIAGNOSTIC (WRVU 3.26) Procedure: Colonoscopy Indication: Malignant neoplasm of colon, unspecified part of colon and History of partial colectomy Sedation: IVCS Timeframe: within 2 weeks Specific provider: first available OV needed: No Anticoagulation status: no documented anticoagulation use 03/24/2024 1:00 PM EDT documented as of this encounter Procedures Procedure Name Priority Date/Time Associated Diagnosis Comments SKIN/SUP WOUND CULTURE STAT 1:44 PM EDT CRP, ACUTE INFLAMMATION STAT 10/06/2023 1:00 PM EDT HEMOGRAM STAT 10/06/2023 1:00 PM EDT DIFFERENTIAL, AUTOMATED STAT 10/06/2023 1:00 PM EDT CBC (WITH DIFF) STAT 10/06/2023 1:00 PM EDT LIPASE STAT 10/06/2023 1:00 PM EDT LACTATE, PLASMA STAT 10/06/2023 1:00 PM EDT COMPREHENSIVE METABOLIC PANEL STAT 10/06/2023 1:00 PM EDT URINALYSIS WITH REFLEX CULTURE STAT 10/06/2023 12:46 PM EDT documented in this encounter Results * (ABNORMAL) Skin/Superficial Wound Culture Abdomen (10/06/2023 1:44 PM EDT) Skin/Superfic ial Wound Culture Few Escherichia coli(A) [facility] Gram Stain No Neutrophils seen. No microorganisms seen. (A) [facility] Organism Escherichia coli(A) [facility] Superficial Wound ABDOMEN / Unknown 10/05 1:44 PM EDT 10/06/2023 6:21 PM EDT Narrative Resulting Agency Comment Spec In Lab Organism Antibiotic Method Susceptibility Escherichia coli Amikacin VITEK 2 METHOD Sensitive Escherichia coli Ampicillin + Sulbactam VITEK 2 METHOD Resistant Escherichia coli Aztreonam VITEK 2 METHOD Sensitive Escherichia coli Cefepime VITEK 2 METHOD <=1: Sensitive Escherichia coli Ceftazidime VITEK 2 METHOD <=1: Sensitive Escherichia coli Ceftriaxone VITEK 2 METHOD Sensitive Escherichia coli Ertapenem VITEK 2 METHOD Sensitive Escherichia coli Gentamicin VITEK 2 METHOD Sensitive Escherichia coli Levofloxacin VITEK 2 METHOD Resistant Comment: Levofloxacin and Ciprofloxacin may not adequately treat infections in critically ill patients even when isolates test susceptible in the laboratory. Contact Infectious Disease before using in critically ill patients. Escherichia coli Meropenem VITEK 2 METHOD <=0.25: Sensitive Escherichia coli Piperacillin/Tazobactam VITEK 2 METHO D <=4: Sensitive Escherichia coli Tetracycline VITEK 2 METHOD Sensitive Escherichia coli Tigecycline VITEK 2 METHOD Sensitive Escherichia coli Tobramycin VITEK 2 METHOD Sensitive Escherichia coli Trimethoprim/Sulfa VITEK 2 METHOD Resistant Estiven Rodarte AUTOMOTIVE REFINISHER MICROBIOLOGY - GENER AL ORDERABLES [facility] [place] [address] * (ABNORMAL) CRP, acute inflammation (10/06/2023 1:00 PM EDT) C-Reactive Protein 110.2(H) <=4.9 mg/L [facility] Blood Venous Draw / Unknown 10/06/2023 1:00 PM EDT 10/06/2023 1:07 PM EDT Narrative Resulting Agency Comment Spec In Lab Estiven Bacaicoa AUTOMOTIVE REFINISHER CHEMISTRY ORDERABLES [facility] [address] [place] [address] * (ABNORMAL) Differential, Automated (10/06/2023 1:00 PM EDT) Neutrophil % 72.1 % [facility] Neutrophil Absolute 7.23(H) 1.70 - 6.10 x10(3)/mc L [facility] Lymph % 16.9 % [facility] Lymphocytes Abs 1.7 0.9 - 3.2 x10(3)/mc L [facility] Monocyte % 6.8 % [facility] Monocyte Abs 0.7 0.3 - 0.9 x10(3)/mc L [facility] Eos % 1.9 % [facility] Eosinophils Abs 0.2 0.0 - 0.4 x10(3)/mc L [facility] Basophil % 0.3 % [facility] Baso Absolute 0.0 0.0 - 0.1 x10(3)/mc L [facility] Immature Gran % 2.00 % [facility] Comment: Immature granulocytes(IG's)percentage and absolute count will include metamyelocytes, myelocytes, and promyelocytes. Blood smears from CBCs yielding IG's will be scanned manually for concordance. If this scan disagrees with the automated IG or if promyelocytes are noted, a manual differential will be performed. Immature Gran Absolute 0.20(H) 0.00 - 0.04 x10(3)/mc L [facility] Blood 10/06/2023 1:00 PM EDT 10/06/2023 1:07 PM EDT Narrative Resulting Agency Comment Spec In Lab Estiven Bacaicoa AUTOMOTIVE REFINISHER HEMATOLOGY ORDERABLE S Performing Organization Address City/[facility]/ZIP Co de Phone Number [facility] [address] [place] [address] * (ABNORMAL) Hemogram (10/06/2023 1:00 PM EDT) White Blood Cell 10.0(H) 4.0 - 9.5 x10(3)/mc L [facility] Red Blood Cell 4.12 4.00 - 5.21 x10(6)/mc L [facility] Hemoglobin 12.4 11.7 - 15.5 g/dL [facility] Hematocrit 38.8 35.7 - 45.8 % [facility] Mean Cell Volume 94.2 82.6 - 94.4 fL [facility] Mean Cell Hemoglobin 30.1 27.1 - 32.0 pg [facility] Mean Cell Hemoglobin Concentration 32.0 31.7 - 35.0 g/dL [facility] Platelet 303 145 - 357 x10(3)/mc L [facility] RDW Standard Deviation 42.2 37.0 - 46.0 fL [facility] RDW coefficient of variation 12.1 11.5 - 14.1 % [facility] Mean Platelet Volume 8.9 7.6 - 12.9 fL [facility] Blood 10/06/2023 1:00 PM EDT 10/06/2023 1:07 PM EDT Narrative Resulting Agency Comment Spec In Lab Estiven Bacaicoa AUTOMOTIVE REFINISHER HEMATOLOGY ORDERABLE S Performing Organization Address City/[facility]/ZIP Co de Phone Number [facility] [address] [place] [address] * Lactate, plasma (10/06/2023 1:00 PM EDT) Pathologist [facility] Lactic Acid 1.4 0.5 - 2.2 mmol/L [facility] Blood 10/06/2023 1:00 PM EDT 10/06/2023 1:07 PM EDT Narrative Resulting Agency Comment Spec In Lab Estiven Bacaicoa AUTOMOTIVE REFINISHER CHEMISTRY ORDERABLES Performing Organization Address City/[facility]/ZIP Co de Phone Number [facility] [address] [place] [address] * (ABNORMAL) Lipase (10/06/2023 1:00 PM EDT) Lipase 62(H) 0 - 60 unit/L [facility] Blood 10/06/2023 1:00 PM EDT 10/06/2023 1:07 PM EDT Narrative Resulting Agency Comment Spec In Lab Estiven Rodarte APRN CHEMISTRY ORDERABLES [facility] [address] [place] [address] * (ABNORMAL) Comprehensive metabolic panel (non-fasting) (10/06/2023 1:00 PM EDT) Glucose 134 65 - 199 mg/dL [facility] Comment:Diabetes: >=200 mg/d L plus symptoms Blood Urea Nitrogen 13 8 - 18 mg/dL [facility] Creatinine 0.59(L) 0.70 - 1.20 mg/dL [facility] Sodium 136 135 - 145 mmol/L [facility] Potassium 4.2 3.5 - 5.0 mmol/L [facility] Comment: Please note: ??Patients with WBC >100,000 may have falsely elevated Potassium levels. ??For accurate Potassium quantification in these patients send serum separator tube (gold top) for subsequent determinations. ??Contact the Clinical Chemistry Laboratory if there are any questions. Chloride 99 98 - 107 mmol/L [facility] Carbon Dioxide 26 22 - 31 mmol/L [facility] Anion Gap 11 5 - 15 mmol/L [facility] Calcium 9.1 8.5 - 10.5 mg/dL [facility] Protein, Total 7.2 6.1 - 8.0 g/dL [facility] Albumin 4.0 3.2 - 5.2 g/dL [facility] Aspartate Aminotransferase 23 0 - 30 unit/L [facility] Alanine Aminotransferase 29 0 - 30 unit/L [facility] Alkaline Phosphatase 76 35 - 105 unit/L [facility] Bilirubin, Total 0.2 0.2 - 1.3 mg/dL [facility] Est Glomerular Filtration Rate 100 >=60 mL/min/1. 73 m?? [facility] Comment: This patient's estimated GFR was calculated [...] and symptoms in addition to eGFR. Blood 10/06/2023 1:00 PM EDT 10/06/2023 1:07 PM EDT Narrative Resulting Agency Comment Spec In Lab Estiven Bacaicoa AUTOMOTIVE REFINISHER CHEMISTRY ORDERABLES Performing Organization Address [facility] Co de Phone Number [facility] [address] [place] [address] * Urinalysis with reflex Culture (10/06/2023 12:46 PM EDT) Glucose, Urine Dipstick Negative Negative mg/dL [facility] Protein, Urine Dipstick Negative Negative mg/dL [facility] Bilirubin, Urine Dipstick Negative Negative mg/dL [facility] Comment: Clinical correlation required for positive Urine Bilirubin results as false positive may occur with some drugs and drug related products. If a false positive is suspected a serum total bilirubin should be considered if clinically indicated. Urobilinogen, Urine Dipstick Normal Normal mg/dL [facility] pH, Urn (dipstick) 7.0 5.0 - 8.0 [facility] Blood, Urine Dipstick Negative Negative mg/dL [facility] Ketone, Urine Dipstick Negative Negative mg/dL [facility] Nitrite, Urine Dipstick Negative Negative [facility] Leukocytes, Urine Dipstick Negative Negative mcL [facility] Appearance, Urine Dipstick Clear Clear [facility] Specific [place] Urine Automated 1.015 1.006 - 1.030 [facility] Color, Urine Dipstick Yellow [facility] Reflex to Culture No [facility] Clean Catch Urine 10/06/2023 12:46 PM EDT 10/06/2023 12:56 PM EDT Narrative Resulting Agency Comment Spec In Lab Etsiven Bacaicoa AUTOMOTIVE REFINISHER URINE ORDERABLES Performing Organization Address [facility]/ZIP Co de Phone Number [facility] [address] [place] [address] documented in this encounter Visit Diagnoses Diagnosis Draining postoperative wound, initial encounter documented in this encounter Administered Medications Inactive Administered Medications - up to 3 most recent administrations Medication Order MAR Action Action Date Dose Rate Site acetaminophen (Tylenol) tablet 975 mg 975 mg (rounded from 1,000 mg), Oral, ONCE, 1 dose, On Wed10/06/23 at 1310, Maximum dose of acetaminophen is 4,000 mg from all sources in 24 hours. When ordered for pain, acetaminophen should be given even when other ordered pain medications are indicated., STAT Given 10/06/2023 1:43 PM EDT 975 mg ampicillin-sulbactam (Unasyn) 3 g vial attach to sodium chloride 0.9% 100 mL Mini-Bag Plus 3 g, Intravenous, ONCE, 1 dose, On Wed10/06/23 at 1320, Administer over 15 Minutes, Warning Vesicant/Irritant Medication , Indication for (Active or Suspected): Skin/Skin Structure New Bag 10/06/2023 1:43 PM EDT 3 g 400 mL/hr sodium chloride 0.9% 500 mL IV bolus at 500 mL/hr, Intravenous, ONCE, 1 dose, On Wed10/06/23 at 1336 New Bag 10/06/2023 1:43 PM EDT 500 mL/hr documented in this encounter Active and Recently Administered Medications Times are shown in EDT. Scheduled Medication Order 10/04/2023 10/05/2023 10/06/2023 acetaminophen (Tylenol) tablet 975 mg (COMPLETED) 975 mg (rounded from 1,000 mg), Oral, ONCE, 1 dose, On Wed10/06/23 at 1310, Maximum dose of acetaminophen is 4,000 mg from all sources in 24 hours. When ordered for pain, acetaminophen should be given even when other ordered pain medications are indicated., STAT 1343 (Given - Provid er: Aniyah Hawkins NRP) ampicillin-sulbactam (Unasyn) 3 g vial attach to sodium chloride 0.9% 100 mL Mini-Bag Plus (COMPLETED) 3 g, Intravenous, ONCE, 1 dose, On Wed10/06/23 at 1320, Administer over 15 Minutes, Warning Vesicant/Irritant Medication , Indication for (Active or Suspected): Skin/Skin Structure 1343 (New Bag - Prov ider: Aniyah Hawkins NRP)1358 (Stopped - Provider: Aniyah Hawkins NRP) sodium chloride 0.9% 500 mL IV bolus (COMPLETED) at 500 mL/hr, Intravenous, ONCE, 1 dose, On Wed10/06/23 at 1336 1343 (New Bag - Prov ider: Aniyah Hawkins NRP)1443 (Stopped - Provider: Aniyah Hawkins NRP) documented in this encounter Care Teams Estate Tax Examiner Relationship Specialty Start Date End Date Hina Johnson [address] [place] [address] PCP - General Family Medicine 06/25/23 documented as of this encounter
--- OUTSIDE RECORDS SUMMARY | 2024-01-26 03:07 | XMS_ITS | Encounter Summary ---
Author Organization [facility] Address [facility] [place] [address] Care Team Providers Care Button Decorating Machine Operator Name Role Phone SharicathydahliaEliza Hina Primary Care Provider [phone] Encounter Details Date Type Department Care Team (Late st Contact Info) Description 11/12/2023 Telephone Gastroenterology at [facility] [place] [phone] Maria Victoria Landaverde Social History Tobacco Use Types Packs/Day Years Used Date Smoking Tobacco: Former Cigarettes Smokeless Tobacco: Never Alcohol Use Standard Drinks/Week Comments Not Currently 0 (1 standard drink = 0.6 oz pur e alcohol) few times yearly [facility] Utilities Answer Date Recorded In the past 12 months has th e [employer], gas, oil, or water [employer] threatened to shut off services in your [...] place to sleep or slept in a nursing home (including now)? No 09/29/2023 [facility] Inpatient Questions Answer Date Recorded Does Anyone [...] encounter Miscellaneous Notes * Telephone Encounter - Maria Victoria Landaverde - 11/12/2023 4:21 PM EDT Placed outgoing phone call to patient in order to schedule a procedure. Phone Call Outcome: Left voicemail asking for return call. Urgent [place] This was the 1st attempt If the call is returned, it can be handled by: Endo Assistant Associate Full Professor please park to me documented in this encounter Plan of Treatment Upcoming Encounters Date Type Department Care Team (Late st Contact Info) Description 01/28/2024 10:30 AM EDT Office Visit Hematology/Oncolog y at [address] [phone] Derek Lindquist MD [facility] [place] [address] Ann Tello APRN [address] [place] [address] DR HEMATOLOGY [place] [address] 03/24/2024 1:00 PM EDT Hospital [place] [address] Shilo Lopez MD [facility] [place] [address] 03/24/2024 1:00 PM EDT - 03/24/2024 1:45 PM EDT [place] [address] Shilo Lopez MD [facility] [place] [address] COLONOSCOPY, DIAGNOSTIC (WRVU 3.26) Scheduled Procedures Name [...] on filedocumented in this encounter Care Teams Button Decorating Machine Operator Relationship Specialty Start Date End Date Hina Johnson [address] [place] [address] PCP - General Family Medicine 06/25/23 documented as of this encounter
--- OUTSIDE RECORDS SUMMARY | 2024-01-26 03:07 | XMS_ITS | Encounter Summary ---
Author Organization [facility] Address [facility] [place] [address] Care Team Providers Care Process Owner Name Role Phone EloisaAlvaroHina Primary Care Provider [phone] Reason for Referral * Diagnostic Test (Routine) - Closed Specialty Diagnoses / Procedures Referred By Contsarbjit t Referred To Contact Radiology Diagnoses Adenocarcinoma of appendix Procedures IR Mediport Removal Derek Concepcion MD [facility] [place] [address] [facility] [place] [address] Referral ID Status Reason Start Date Expiration Date V isits Requested Visits Authorized [id number] Closed Specialty Service Requested 11/02/2023 05/04/2025 1 1 Encounter Details Date Type Department Care Team (Latest Contact Info) Description 10/28/2023 3:00 PM EDT Office Visit Hematology/Oncology at [address] [phone] Derek Concepcion MD [facility] [place] [address] Adenocarcinoma of appendix Social History Tobacco Use Types Packs/Day Years Used Date Smoking Tobacco: Former Cigarettes Smokeless Tobacco: Never Alcohol Use Standard Drinks/Week Comments Not Currently 0 (1 standard drink = 0.6 oz pur e alcohol) few times yearly [facility] Utilities Answer Date Recorded In the past 12 months has e [employer], gas, oil, or water company threatened to [...] place to sleep or slept in a mcc (including now)? No 09/29/2023 [facility] Inpatient [...] Sign Reading Time Taken Comments Blood Pressure 136/79 10/28/2023 2:55 PM EDT Pulse 91 10/28/2023 2:55 PM EDT Temperature 35.6 ??C (96 ??F) 10/28/2023 2:55 PM EDT Respiratory Rate 18 10/28/2023 2:55 PM EDT Oxygen Saturation 99% 10/28/2023 2:55 PM EDT Inhaled Oxygen Concentration - - Weight 87.5 kg (193 lb) 10/28/2023 2:55 PM EDT Height 154.9 cm (5' 0.98) 10/28/2023 2:55 PM ED T Body Mass Index 36.49 10/28/2023 2:55 PM EDT documented in this encounter Progress Notes * Derek Concepcion MD - 10/28/2023 3:00 PM EDT Subjective Patient ID: Blanca Lujan is 68 y.o. 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 09/2021 - presented with LLQ abdominal pain CT a/p 10/09/21 - Impression: Acute diverticulitis of the distal descending colon. No evidence of perforation or abscess formation. Worrisome findings of wall thickening of the base of the cecum adjacent to the appendix. Colonoscopic evaluation recommended to rule out neoplastic disease. There are a few small lymph nodes in the fat adjacent to the base of the cecum, the largest measuring about 10 mm in diameter. These are non specific with no bulky adenopathy seen. B. Colonoscopy 11/07/21 - 12 polyps removed, 4 from cecum, 5 from 80 cm, 2 From 60 cm, 2 at 30 cm, large polyp at 20 cm. Path - Final Diagnosis A. COLON, CECUM, POLYPS, BIOPSY: - Fragments of tubular adenoma(s). B. COLON, 80 CM, POLYPS, BIOPSY: - Fragments of tubular adenoma(s). C. COLON, 60 CM, POLYPS, BIOPSY: - Colonic mucosa with hyperplastic surface change. D. COLON, 20 CM, POLYP, POLYPECTOMY: - Tubulovillous adenoma. E. COLON, 30 CM, POLYPS, BIOPSY: - Fragments of tubular adenoma(s). C. Colonoscopy 12/08/22 - Multiple polyps (20+ polyps removed; 10+ from cecum) Path A. COLON, POLYP, 50 CM, BIOPSY: - Tubular adenoma. B. COLON, CECUM, POLYPS X10, BIOPSY: - Tubular adenomas. C. COLON, 80 CM, POLYPS X3, BIOPSY: - Tubular adenomas. D. COLON, 70 CM, POLYPS X6, BIOPSY: - Tubular adenomas. E. COLON, 60 CM, POLYPS X5, BIOPSY: - Tubular adenomas. F. COLON, 40 CM, POLYPS X3, BIOPSY: - Tubular adenomas. G. COLON, 35 CM, POLYPS X3, BIOPSY: - Fragment of tubular adenoma. - Hyperplastic polyp(s). H. COLON, 25 CM, POLYPS X2, BIOPSY: - Tubular adenoma. - Hyperplastic polyp. D. Presented in 02/2023 with RLQ abdominal pain and swelling CT a/p 02/19/23 - Impression: 1. Soft tissue mass seen in the base of the cecum with extension into the adjacent terminal ileum suspicious for neoplasm. There is communication with a multiloculated fluid collection in the right lower quadrant which involves the adjacent anterior abdominal and the ilisopsoas muscle. Abscesses vsmetastatic disease. Infection/inflammation cannot be entirely excluded. 2. Mildly enlarged lymph nodes in the right lower quadrant 3. Stable hypodense lesion seen in the left lobe of the liver. 4. Colonic diverticulosis without evidence of acute diverticulitis 5. Fibroid uterus ([facility] second read) - IMPRESSION 1. Unexpected findings concerning for contained perforation of mucocele of the appendix with superimposed chronic inflammatory process. Alternatively, this may reflect extension of a cecal malignancyinto the appendix with secondary extension to the right lower quadrant abdominal wall and iliopsoasmusculature as described. 2. Differential diagnosis includes contained chronic appendicitis perforation underlying or superimposed findings most concerning for malignancy given the presence of right lower quadrant lymph nodesand ill-defined hepatic mass. 3. Further evaluation of liver mass with MRI is suggested. 4. Suspected uterine leiomyomatosis. Sonographic correlation suggested. 5. Diverticulosis. E. CEA - 12.7 02/25/23 F. Lower EUS 03/16/23 - Impression: - Possible malignant lesion of the appendix/cecum laterally with biopsies of the mucosa and FNA into an adjacent hypoechoic region of the cecum. Path - Cecal mass bx's, biopsy (Multiple): - Adenocarcinoma, moderately differentiated, see discussion. DISCUSSION Immunostains for MLH1, MSH2, MSH6 and PMS2 reveal intact nuclear staining in tumor cells. G. CT c/a/p 04/14/23 - IMPRESSION 1. Stable appearance of cecal thickening with dilated and thickened appendix which appears adherentto the terminal ileum. 2. No significant change in appearance of adjacent multiloculated collection extending from the anterior abdominal musculature to the right iliopsoas muscle, concerning for abscess versus metastatic disease. 3. Increased size of several right lower quadrant lymph node suspicious for metastatic disease. 4. Heterogenous hepatic lesion adjacent to the gallbladder fossa, unchanged since 10/01/2021 and indeterminant. Consider MRI for further evaluation. 5. A few right upper lobe sub-5 mm pulmonary nodules, indeterminant. Recommend attention on follow-up. MRI abd 04/29/23 - Impression: The finding in the medial right hepatic lobe of the liver just above the gallbladder fossa has benign appearance and is most probably focal fatty infiltration. More concerning lesions are less likely. There are no additional focal findings in the liver. Recommend repeat study in 6 months to ensure s tability, earlier if clinically indicated. H. Began therapy with Folfox on 04/16/23, s/p [address] c/a/p 06/04/23 (after 4 cycles) - IMPRESSION 1. Stable appearance of cecal thickening and associated dilated appendix, which appears tethered tothe anterior right lower quadrant abdominal wall. 2. Resolved mesenteric lymphadenopathy. 3. Decreased size of mass/fluid collection extending along the distal right iliopsoas muscle. 4. Indeterminate hepatic lesion stable over a greater than 18 month interval is favored to be heterogeneous focal fatty infiltration. Recommend continued attention to this on follow-up studies. CT c/a/p 08/11/23 - IMPRESSION 1. Continued improvement in masslike thickening of the cecum and dilation of the appendix, with decreasing right iliopsoas complex collection. 2. Continued resolution of mesenteric lymphadenopathy. 3. Stable presumed focal fatty infiltration of the liver on a background of marked hepatic steatosis. 4. No new or progressive sites of metastatic disease are identified. J. 09/28/23 - Right hemicolectomy Path - DIAGNOSIS A - Right colon with terminal ileum, cecum, appendix, ascending colon, right colectomy: - No residual invasive carcinoma identified, see discussion. - Cecum at appendiceal orifice with mucosal ulceration and colonic epithelial reactive atypia, fibrosis in the wall, and subserosal inflammation with multinucleated giant cells and hemorrhage. - Appendix is adherent to terminal ileum and shows serrated mucosal epithelium, negative for high grade dysplasia and invasive carcinoma. - Fibrosis, acellular mucin, chronic inflammation with multinucleated giant cells and hemorrhage inperi-appendiceal soft tissue and appendiceal serosa with fibrous adhesion and focal fibrinopurulentdeposition. - One villous adenoma is present in proximal ascending colon. - The areas with two metal clips in proximal ascending colon mucosa with tubular adenoma and focal ulceration are present, negative for invasive carcinoma. Eighteen lymph nodes, negative for carcinoma (0/18). B - Ileocecal anastomosis, excision: Segment of small intestine and segment of colon with anastomosis, negative for carcinoma. 2. Anxiety and depression 3. PTSD 4. ADHD 5. ZARA 6. 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 The history is summarized above. S/p right hemicolectomy 09/28/23. Path - no residual disease Blanca is accompanied to clinic today by her daughter Kera. Her postoperative course has been complicated by a wound infection. She has completed a course of antibiotics. She has no pain. Soc Hx:Lives in [place], [place] Tob - Quit in 2010 Etoh - Fam Hx: Father - had intestinal cancer Mother - she doesn't know much about her mother's side of the cancer Sibs - 5. Brother of cancer which began in his tear duct; Children - 1 daughter Pat aunt - intestinal cancer Pat aunt - GI cancer (possibly gastric cancer) Mat GM - breast cancer Mat aunt - breast cancer We discussed screening colonscopy for her siblings and daughter. Kera has already discussed this with her PCP. Review of Systems Objective Physical Exam Vitals reviewed. Constitutional: General: She is not in acute distress. HENT: Head: Normocephalic and atraumatic. Mouth/Throat: Pharynx: Oropharynx is clear. No oropharyngeal exudate. Eyes: General: No scleral icterus. Cardiovascular: Rate and Rhythm: Normal rate and regular rhythm. Pulmonary: Effort: Pulmonary effort is normal. No respiratory distress. Breath sounds: No wheezing or rales. Abdominal: General: There is no distension. Palpations: There is no mass. Tenderness: There is no abdominal tenderness. There is no guarding. Musculoskeletal: General: No swelling. Lymphadenopathy: Cervical: No cervical adenopathy. Upper Body: Right upper body: No supraclavicular adenopathy. Left upper body: No supraclavicular adenopathy. Skin: General: Skin is warm and dry. Findings: No rash. Neurological: General: No focal deficit present. Mental Status: She is alert. Coordination: Coordination normal. Psychiatric: Mood and Affect: Mood normal. ECOG PS - 1 Labs: WBC/ANC - 6., Hgb/Hct - 12.4/37.4, Plts - 192,000. BUN/Cr - 24/0.7. Glucose - 152, Alb- 3.5, Alt - 80. Lytes and LFTs o/w unremarkable. CEA 10/28/23 09/09/23 2.9 08/05/23 3.5 07/22/23 3.3 07/08/23 2.9 06/24/23 2.8 06/11/23 5.7 05/27/23 4.5 05/13/23 6.2 04/29/23 8.3 04/14/23 14.2 04/07/23 16.3 02/25/23 12.7 Assessment and Plan Blanca Lujan is 68 yo, seen for evaluation and management of adenocarcinoma of the appendix/cecum. She had been [...] CT done in 09/2021 which is reassuring). She was referred to Dr. Garcia who [...] afebrile and without an elevated white count andDr. Torrance feels this represents tumor. We have made a referral to the Familial Cancer Program due to concern for a polyposis syndrome. On 04/16/23 she began therapy with Folfox and has received 8 cycles (the last given 08/06/23). She had a CT scan done on 08/11/23 which showed evidence of continued response. On 09/28/23 she underwent a right hemicolectomy. The pathology report is above - no residual diseaseseen. 18 LN's were seen, all negative. We talked about the issue of post-operative therapy. There is not a clear answer here but given thepathology report, I think observation is a reasonable option and would be her clear preference. However, we will plan to re-discuss at [facility] next week and I will call her after that. If we do not plan to give more chemotherapy, then we could schedule mediport removal. Addendum: Discussed at [facility] today, 11/02/23. The group agreed that surveillance without further chemotherapy is reasonable at this time. I will refer for mediport removal and see her in 3 months. documented in this encounter Miscellaneous Notes * Addendum Note - Derek Concepcion MD - 10/28/2023 3:00 PM EDTAddended by: DEREK CONCEPCION on: 11/02/2023 12:34 PM Modules accepted: Orders documented in this encounter Plan of Treatment Upcoming Encounters Date Type Department Care Team (Late st Contact Info) Description 01/28/2024 10:30 AM EDT Office Visit Hematology/Oncolog y at [address] [phone] Derek Concepcion MD [facility] [place] [address] Ann Tello, [address] HEMATOLOGY AND ONCOLOGY [place], [place] [address] 03/24/2024 1:00 PM EDT Hospital Encounter [place] [phone] Shilo Lopez MD [facility] [place] [address] 03/24/2024 1:00 PM EDT - 03/24/2024 1:45 PM EDT Surgery [place] [phone] Shilo Lopez MD [facility] [place] [address] COLONOSCOPY, DIAGNOSTIC (WRVU 3.26) Scheduled Orders Name Type Priority Associated Diagnoses Orde r Schedule CBC (with Diff) Lab Routine Adenocarcinoma of appendix Expected: 01/28/2024 (Approximate), Expires: 10/27/2024 Comprehensive metabolic panel (non-fasting) Lab Routine Adenocarcinoma of appendix Expected: 01/28/2024 (Approximate), Expires: 10/27/2024 CEA Lab Routine Adenocarcinoma of appendix Expected: 01/28/2024 (Approximate), Expires: 07/29/2024 Scheduled Procedures Name Priority Associated Diagnoses Date/Ti me COLONOSCOPY, DIAGNOSTIC (WRVU 3.26) Procedure: Colonoscopy Indication: Malignant neoplasm of colon, unspecified part of colon and History of partial colectomy Sedation: IVCS Timeframe: within 2 weeks Specific provider: first available OV needed: No Anticoagulation status: no documented anticoagulation use 03/24/2024 1:00 PM EDT documented as of this encounter Results * IR Mediport Removal (11/04/2023 11:57 AM EDT) Anatomical Region Laterality Modality X-Ray Angiograph y Narrative 11/04/2023 12:57 PM EDT Interventional Radiology Procedure Note Procedure: Subcutaneous venous port explant Indication: Colon cancer, discontinue fci central venous access for chemotherapy Pre-procedure: Informed [...] I was not present. ?? 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
--- OUTSIDE RECORDS SUMMARY | 2024-01-26 03:07 | XMS_ITS ---
Author Organization [facility] [place] [address] Care Team Providers Care Stator Plate Washer Name Role Phone Hina Johnson Primary Care Provider Active Problems Problem Noted Date Diagnosed Date [...] mass 02/26/2023 Elevated carcinoembryonic antigen (CEA) 02/27/20 23 Bruxism 02/26/2023 Depressive disorder 02/26/2023 Elevated blood-pressure read ing without diagnosis of hypertension 02/26/2023 Lack of energy 02/26/2023 ZARA (obstructive sleep apnea) 02/26/2023 Posttraumatic stress disorder 02/26/2023 Snoring 02/26/2023 Vitamin D deficiency 02/26/2023 Current Oncology Plans BCN AMB ONC GI COLORECTAL CANCER - FOLFOX-6 (14 DAY)* Plan Start Date: 04/16/2023 Plan Provider:Derek Lindquist MD Linked Problems Adenocarcinoma, appendix Treatment Medications fluorouraciL (ADRUCIL)fluoro uraciL (AdruciL) in sodium chloride 0.9% 138 mL infusion (46 Hour - For Home Use)leucovorin (Wellcovorin) in dextrose 5% or sodium chloride 0.9% for infusionoxaliplatin (Eloxatin)OXALIplatin (Eloxatin) in dextrose 5% 250 mL infusionPump Disconnect: Home Infusion Hydration / Electrolytes / Antiemetics ([facility], [facility])* Plan Start Date:08/09/2023 Plan Provider:Ann Tello APRN Linked Problems Adenocarcinoma, appendix Treatment Medications No medications scheduled. Mediport Administration (ALL SITES)* Plan Start Date:04/14/2023 Plan Provider:Derek Lindquist MD Linked Problems Adenocarcinoma, appendixMali gnant neoplasm of overlapping sites of colon Treatment Medications No medications scheduled. Past Plans No past plan information found. Radiation Treatments * No radiation treatments are documented for this patient in [facility]. Treatments may have been administered in another system. Resolved Problems Problem Noted Date Diagnosed Date Resolved Date Tachycardia 09/29/2023 10/04/2023
--- OUTSIDE RECORDS SUMMARY | 2024-01-26 03:07 | XMS_ITS | Encounter Summary ---
Author Organization [facility] Address [facility] [place] [address] Care Team Providers Care Card Grader Name Role Phone SharicathydahliaHina Kay Primary Care Provider [phone] Encounter Details Date Type Department Care Team (Latest Contact Info) Description 10/06/2023 Travel Social History Tobacco Use Types Packs/Day Years Used Date Smoking Tobacco: Former Cigarettes Smokeless Tobacco: Never Alcohol Use Standard Drinks/Week Comments Yes 0 (1 standard drink = 0.6 oz pur e alcohol) few times yearly [facility] Utilities Answer Date Recorded In the past 12 months has th e electric, gas, oil, or water company [...] a nursing home (including now)? No 09/29/2023 IPV Inpatient Questions [...] AM EDT Office Visit Hematology/Oncolog y at [address] [phone] Derek Linduqist MD [facility] [place] [address] Ann Tello APRN [address] [place] [address] DR [place] [address] 03/24/2024 1:00 PM EDT Hospital En[place] [phone] Shilo Lopez MD [facility] [place] [address] 03/24/2024 1:00 PM EDT - 03/24/2024 1:45 PM EDT [place] [phone] Shilo Lopez MD [facility] [place] [address] COLONOSCOPY, DIAGNOSTIC (WRVU 3.26) Scheduled Procedures Name [...] on filedocumented in this encounter Care Teams Card Grader Relationship Specialty Start Date End Date Hina Johnson [address] [place] [address] PCP - General Family Medicine 06/25/23 documented as of this encounter
--- OUTSIDE RECORDS SUMMARY | 2024-01-26 03:07 | XMS_ITS | Encounter Summary ---
Author Organization [facility] Address [facility] [place] [address] Care Team Providers Care Hand Marker Name Role Phone EloisaAlvaroHina Primary Care Provider Encounter Details Date Type Department Care Team (Late st Contact Info) Description 10/08/2023 Telephone General Surgery at [facility] [place] [phone] Theresa Segundo RN Social History Tobacco Use Types Packs/Day Years Used Date Smoking Tobacco: Former Cigarettes Smokeless Tobacco: Never Alcohol Use Standard Drinks/Week Comments Yes 0 (1 standard drink = 0.6 oz pur e alcohol) few times yearly [facility] Utilities Answer Date Recorded In the past 12 months has th e Float: [place], gas, oil, or water [employer] threatened to shut off services in your [...] place to sleep or slept in a retirement (including now)? No 09/29/2023 DH IPV Inpatient [...] encounter Miscellaneous Notes * Telephone Encounter - Theresa Segundo RN - 10/08/2023 10:41 AM EDT Patient calls the general surgery clinic today to report some diarrhea. She was started on Augmentin after an ED visit on 10/06/23. She took her first dose on Wednesday night, followed but twice yesterday and once this morning. She reports that late yesterday afternoon she started having diarrhea. She states that it is a bit watery and there is an acid smell to it. I asked how many times she has go ne today and she states 7 so far. She states that her daughter said the redness is better. She is still draining from her incision. She is concerned because she is already a bit run down from surgery. Pt is wondering if she needs a different antibiotic. Plan: I will discuss with Dr. Garcia and be back in touch with the patient. I discussed with Dr. Garcia. She would like the patient to lay low over the weekend, stick with a lowfiber high protein diet, push fluids to stay hydrated and if something drastically changes over theeke, call to talk to the consumer loan manager doctor and/or come to the ED. Otherwise, Dr. Garcia will see herMonday in clinic as previously scheduled. Pt verbalizes her understanding and agrees with the plan. I received notification regarding the pt's wound culture and sensitivities. The pt's current antibiotic regimen is not one of the sensitivities. I discussed with Dr. Spivey who is going to look intoit. documented in this encounter Plan of Treatment Upcoming Encounters Date Type Department Care Team (Late st Contact Info) Description 01/28/2024 10:30 AM EDT Office Visit Hematology/Oncolog y at [address] [address] Derek Lindquist MD [facility] [place] [address] Ann Tello APRN [address] [place] [address] DR HEMATOLOGY AND ONCOLOGY [place], [place] [address] 03/24/2024 1:00 PM EDT Hospital Encounter Gastroenterology at [place] [phone] Shilo Lopez MD [facility] [place] [address] 03/24/2024 1:00 PM EDT - 03/24/2024 1:45 PM EDT Surgery Gastroenterology at [place] [phone] Shilo Lopez MD [facility] [place] [address] COLONOSCOPY, DIAGNOSTIC (WRVU 3.26) Scheduled Procedures Name [...] on filedocumented in this encounter Care Teams Hand Marker Relationship Specialty Start Date End Date Hina Johnson [address] [place] [address] PCP - General Family Medicine 06/25/23 documented as of this encounter
--- OUTSIDE RECORDS SUMMARY | 2024-01-26 03:07 | XMS_ITS | Encounter Summary ---
Author Organization [facility] Address [facility] [place] [address] Care Team Providers Care Solutions Specialist Name Role Phone SharicathydahliaHina Kay Primary Care Provider [phone] Encounter Details Date Type Department Care Team (Latest Contact Info) Description 10/28/2023 Travel Social History Tobacco Use Types Packs/Day Years Used Date Smoking Tobacco: Former Cigarettes Smokeless Tobacco: Never Alcohol Use Standard Drinks/Week Comments Not Currently 0 (1 standard drink = 0.6 oz pur e alcohol) few times yearly [facility] Utilities Answer Date Recorded In the [...] place to sleep or slept in a intermediate (including now)? No 09/29/2023 IPV Inpatient Questions [...] AM EDT Office Visit Hematology/Oncolog y at [address] [address] Dreek Lindquist MD [facility] [place] [address] Ann Tello APRN [address] [place] [address] DR [place] [address] 03/24/2024 1:00 PM EDT Hospital Encounter [place] [phone] Shilo Lopez MD [facility] [place] [address] 03/24/2024 1:00 PM EDT - 03/24/2024 1:45 PM EDT [place] [phone] Shilo Lopez MD [facility] [place] [address] COLONOSCOPY, DIAGNOSTIC (WRVU 3.26) Scheduled Procedures Name [...] on filedocumented in this encounter Care Teams Solutions Specialist Relationship Specialty Start Date End Date Hina Johnson [address] [place] [address] PCP - General Family Medicine 06/25/23 documented as of this encounter
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
--- OUTSIDE RECORDS SUMMARY | 2024-01-26 03:07 | XMS_ITS | Encounter Summary ---
Author Organization [facility] Address [facility] [place] [address] Care Team Providers Care Opener Tender Name Role Phone EloisaAlvaroHina Primary Care Provider [phone] Encounter Details Date Type Department Care Team (Late st Contact Info) Description 11/19/2023 Telephone General Surgery at [facility] [place] [phone] Erma Sy RN Social History Tobacco Use Types Packs/Day Years Used Date Smoking Tobacco: Former Cigarettes Smokeless Tobacco: Never Alcohol Use Standard Drinks/Week Comments Not Currently 0 (1 standard drink = 0.6 oz pur e alcohol) few times yearly [facility] Utilities Answer Date Recorded In the past 12 months has th e [employer], gas, oil, or water [employer] threatened to shut off services in your [...] place to sleep or slept in a assisted (including now)? No 09/29/2023 DH IPV Inpatient [...] encounter Miscellaneous Notes * Telephone Encounter - Erma Sy RN - 11/19/2023 11:21 AM EDT Incoming call today from Blanca, who is almost two months s/p laparoscopic colon resection with Dr. Ema Garcia. Blanca reports she has been experiencing generalized lower abdominal discomfort since she eating asparagus last night. She states this feels like gas pain but Gas-X has not yet relieved her symptoms. Blanca denies fever, chills, nausea or vomiting. She is moving her bowels at baseline, with normal color and caliber. I have advised Blanca to keep a food journal and to comment on any symptoms she has after eating, tobetter determine if this pain is food related. She has no dietary restrictions, but I explained that some foods may still be difficult to digest. She understands to call with worsening pain, fevers, chills, nausea/vomiting, or changes to her stool. She understands to call the switch board if she has any of these concerns after hours or on the weekend. She is pleased with this plan and was appreciative of the call back. Addendum: I left Blanca a message with Dr. Garcia's additional recommendation to make sure she is eating very small bites and chewing her food very well to aid in digestion. Any vegetables should be cooked as well. documented in this encounter Plan of Treatment Upcoming Encounters Date Type Department Care Team (Late st Contact Info) Description 01/28/2024 10:30 AM EDT Office Visit Hematology/Oncolog y at [address] [address] Derek Lindquist MD [facility] [place] [address] Ann Tello APRN [address] [place] [address] DR HEMATOLOGY [place] [address] 03/24/2024 1:00 PM EDT Hospital Encounter [place] [phone] Shilo Lopez MD [facility] [place] [address] 03/24/2024 1:00 PM EDT - 03/24/2024 1:45 PM EDT Surgery [place] [phone] Shilo Lopez MD [facility] [place] [address] COLONOSCOPY, DIAGNOSTIC (WRVU 3.26) Scheduled Procedures Name [...] on filedocumented in this encounter Care Teams Opener Tender Relationship Specialty Start Date End Date Hina Johnson [address] [place] [address] PCP - General Family Medicine 06/25/23 documented as of this encounter
--- OUTSIDE RECORDS SUMMARY | 2024-01-26 03:07 | XMS_ITS | Encounter Summary ---
Author Organization [facility] Address [facility] [place] [address] Care Team Providers Care Business Support Assistant Name Role Phone SharicathydahliaEliza Hina Primary Care Provider [phone] Encounter Details Date Type Department Care Team (Late st Contact Info) Description 11/15/2023 Telephone Gastroenterology at [facility] [place] [phone] Tashia Maria Social History Tobacco Use Types Packs/Day Years Used Date Smoking Tobacco: Former Cigarettes Smokeless Tobacco: Never Alcohol Use Standard Drinks/Week Comments Not Currently 0 (1 standard drink = 0.6 oz pur e alcohol) few times yearly [facility] Utilities Answer Date Recorded In the past 12 months has th e [employer], gas, oil, or water [employer] threatened to shut off services in your [...] place to sleep or slept in a senior living (including now)? No 09/29/2023 IPV Inpatient Questions [...] encounter Miscellaneous Notes * Telephone Encounter - Tashia Maria - 11/15/2023 9:06 AM EDT Blanca Cam[place]in [id number] Diagnosis/Indication: Malignant neoplasm of colon Please review patient chart to confirm if previous Endoscopy procedure was performed within system. If yes, take note of Anesthesia type used. If previous procedure found, and with MAC/propofol Anesthesia support was used, schedule this procedure with Anesthesia and skip the Anesthesia portion of questions. If not performed within system, not performed at all, or performed with IVCS, ask Anesthesia questions. SCHEDULING QUESTIONS (ask all patient these questions) Have you ever had a/an Colonoscopy before? Yes: Date St last year If yes, did you have any problems with the procedure (such as waking up during the procedure, pain or difficulties afterwards, etc.)? No What type of sedation was used: Other: unknown (ASK ONLY FOR COLONOSCOPY PROCEDURES) Are you aware, or have you ever been told that you had a poor prep or failed prep with a previous colonoscopy? No If yes, assign the Extended MiraLAX Prep (ASK ONLY FOR COLONOSCOPY PROCEDURES) Do you have an ongoing history of constipation? (E.g., hard stools, >2 days without a bowel movement, straining or difficulty passing stool) No If yes, assign the Extended MiraLAX Prep Do you take any blood thinners or have you been diagnosed with a bleeding disorder that increases your risk of bleeding with procedures? No Do you have a Pacemaker or Defibrillator device? If yes, send pool message to Cardiology with patient information and date or procedure. No Do you have diabetes? If yes, call PCP/managing provider to discuss use of prep and any questions or concerns related to. No If yes, assign the Extended MiraLAX Prep Do you take any iron supplements or vitamins that contain iron? No Do you have a preference regarding the gender of your provider? No ANESTHESIA QUESTIONS (YES to any question, please book with Anesthesia support) Have you ever been diagnosed with Pulmonary Hypertension and/or Congential Heart Disease? No Have you been diagnosed with A-Fib (atrial fibrillation) that is NOT being well controled with medications? No Have you ever had an allergic or adverse reaction to Fentanyl or Versed? No Have you had a problem with sedation or anesthesia? (Waking up during procedure, extreme confusion after, etc.) No Do you have a diagnosis of Obstructive Sleep Apnea that requires the use of a c- pap machine? Yes Do you use an oxygen tank at home? No Do you use a rescue inhaler more than twice per day? (COPD, severe asthma) No Do you experience breathing problems when you lay flat for a period of time? Yes Do you regularly take prescription opioid pain medications on a daily basis? (Includes oxycodone, Percocet, Suboxone, methadone, etc.) No If yes, assign the Extended MiraLAX Prep SCHEDULING CONFIRMATIONS: Please note any and all parts of your conversation with the patient here. We offer all new patients an opportunity to have an appointment with one of our associate care providers to learn more about your upcoming procedure, ask questions and get answers. These appointmentsare offered via telehealth. Would you be interested in scheduling this appointment? (Only ask if NEW referral patient; skip this question if DH GI provider ordered the procedure.) No Is there any other information or concerns you would like to us to share with your care team in relation to your upcoming scheduled procedure? Yes: ptsd You must have a responsible constitution party who will drive you to your procedure, stay on campus for the entire duration of your procedure, and drive you home from your procedure. Who will likely be your hog driver for the procedure? Kera *Please Verify the height and weight, and adjust if height and/or weight have changed* Estimated body mass index is 36.22 kg/m?? as calculated from the following: Height as of 11/01/23: 154.9 cm (5' 0.98). Weight as of 11/01/23: 86.9 kg (191 lb 9.6 oz). Age:68 y.o. documented in this encounter Plan of Treatment Upcoming Encounters Date Type Department Care Team (Late st Contact Info) Description 01/28/2024 10:30 AM EDT Office Visit Hematology/Oncolog y at [address] [phone] Derek Lindquist MD [facility] [place] [address] Ann Tello APRN [address] [place] [address] DR [place]Y [place] [address] 03/24/2024 1:00 PM EDT Hospital Encounter [place] [address] Shilo Lopze MD [facility] [place] [address] 03/24/2024 1:00 PM EDT - 03/24/2024 1:45 PM EDT Surgery [place] [address] Shilo Lopez MD [facility] [place] [address] COLONOSCOPY, DIAGNOSTIC (WRVU 3.26) Scheduled Procedures Name Priority Associated Diagnoses Date/Ti nh COLONOSCOPY, DIAGNOSTIC (WRVU 3.26) Procedure: Colonoscopy Indication: Malignant neoplasm of colon, unspecified part of colon and History of partial colectomy Sedation: IVCS Timeframe: within 2 weeks Specific provider: first available OV needed: No Anticoagulation status: no documented anticoagulation use 03/24/2024 1:00 PM EDT documented as of this encounter Visit Diagnoses Not on filedocumented in this encounter Care Teams Business Support Assistant Relationship Specialty Start Date End Date Hina Johnson [address] [place] [address] PCP - General Family Medicine 06/25/23 documented as of this encounter
--- OUTSIDE RECORDS SUMMARY | 2024-01-26 03:07 | XMS_ITS | Encounter Summary ---
Author Organization [facility] [place] [address] Care Team Providers Care Travograph Operator Name Role Phone Hina Johnson Primary Care Provider [phone] Reason for Visit * Reason Comments Post-op Problem * Auth/Cert (Routine) Specialty Diagnoses / Procedures Referred By Macy t Referred To Contact Diagnoses Wound infection Infection of deep incisional surgical site after procedure, initial encounter Simone Christie MD [facility] [place] [address] [facility] Referral ID Status Reason Start Date Expiration Date Visits Re quested Visits Authorized [id number] 1 1 Encounter Details Date Type Department Care Team (Latest Contact Info) Description 10/08/2023 5:19 PM EDT - 10/09/2023 3:58 PM EDT Hospital Encounter Surgical Unit Level 3 [place] [id number] Walt Oreilly MD [facility] [place] [address] Colt Salgado [place] [address] Simone Christie MD [facility] [place] [address] Infection of deep incisional surgical site after procedure, initial encounter Discharge Disposition: Home Social History Tobacco Use Types Packs/Day Years Used Date Smoking Tobacco: Former Cigarettes Smokeless Tobacco: Never Alcohol Use Standard Drinks/Week Comments Not Currently 0 (1 standard drink = 0.6 oz pur e alcohol) few times yearly [facility] Utilities Answer Date Recorded In the past [...] place to sleep or slept in a correction (including now)? No 09/29/2023 DH IPV Inpatient [...] Sign Reading Time Taken Comments Blood Pressure 144/89 10/09/2023 1:39 PM EDT Pulse 89 10/08/2023 4:46 PM EDT Temperature 36.5 ??C (97.7 ??F) 10/09/2023 1:39 PM ED T Respiratory Rate 18 10/09/2023 1:39 PM EDT Oxygen Saturation 97% 10/09/2023 1:39 PM EDT Inhaled Oxygen Concentration - - Weight 86.2 kg (190 lb) 10/09/2023 10:53 AM EDT Height 154.9 cm (5' 1) 10/09/2023 10:53 AM EDT Body Mass Index 35.9 10/09/2023 10:53 AM EDT documented in this encounter Discharge Summaries * Barby Amin MD - 10/09/2023 11:10 AM EDT Images from the original note were not included. Colorectal Surgery Discharge Summary Patient Name: Blanca Lujan Patient Age: 67 y.o. Birthdate: 1955 Admit date: 10/08/2023 Discharge date: 10/09/23 Attending Physician: WALT OREILLY ANDREW J WILSON, MATTHEW Z Primary Diagnosis: Admitting Diagnosis: * No surgery found * Now Status Post: Date of surgery: Discharge Diagnoses (Hospital Problems): Active Hospital Problems Diagnosis Wound infection Resolved Hospital Problems No resolved problems to display. Secondary Diagnoses (Chronic Problems): Active Non-Hospital Problems Diagnosis Colon cancer S/P laparoscopy Laparoscopic right hemicolectomy with primary anastomosis; Dr. Ema Garcia Adenocarcinoma, appendix Abnormal CT scan, gastrointestinal tract Malignant neoplasm of overlapping sites of colon Colonic mass Elevated carcinoembryonic antigen (CEA) Bruxism Depressive disorder Elevated blood-pressure reading without diagnosis of hypertension Lack of energy ZARA (obstructive sleep apnea) Posttraumatic stress disorder Snoring Vitamin D deficiency Operations/Major Procedures: * Surgery not found * * Cannot find OR case * HPI: This is a 67 y.o. 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 History is obtained from patient and review of the electronic medical record. She recently underwent hand assisted right hemicolectomy with primary stapled side to side ileocolic anastomosis and cystoscopy with temporary ureteral stents on 09/28/23. The intraoperative course was uncomplicated. Postoperatively, she developed an ileus requiring nasogastric decompression and wasultimately discharged on 10/04/23 to home. Four days ago she developed increasing abdominal discomfort. The pain is described as burning in nature and is located around the midline incision without radiation. It is associated with pruritus. No known alleviating or aggravating factors. She presented to [facility] on Wednesday where she was noted to have a leukocytosis to 10 and evidence of cellulitis around her midline incision on exam. A culture swab was obtained and she was discharged on a course of oral Augmentin with planned follow up with Dr. Garcia this coming Wednesday. Today, the culture results finalized for E Coli that is resistant to the oral Augmentin. She has had mild improvement of her wound erythema, but complains of ongoing foul smelling drainage from the wound. She was called by the clinic staff and instructed to present to the ED today. Presently, she feels okay. Her pain has been controlled on tylenol and ibuprofen. Last bowel movement was today and she has been having ongoing loose stools since her surgical procedure. She is eating and drinking normally. Presently denies fevers/chills, chest pain, shortness of breath, dysuria, Surgical history is significant for hand assisted . She is currently on prophylactic lovenox, whichshe was discharged home on post procedure. Goals, risks, alternatives have been discussed, the patient has expressed understanding and has elected to proceed with operative intervention at this time. Hospital Course: Blanca Lujan is a 67 y.o. female who was admitted on 10/08/2023 for management of surgical site infection. A CT demonstrated no deep space or intra-abdominal fluid collections. She was admitted after bedside incision and drainage of the superior aspect of her midline wound. She was started on ceftriaxone for the resistant E coli that grew from her wound. Oral antibiotic regimen was discussed with ID and it was recommended to transition to doxycyline for a total course of 10 days, which was prescribed at discharge. The patient was deemed stable for discharge on 10/09/2023 with plan to follow up with Dr. Garcia as scheduled on Wednesday for a wound check. Initiated on ERAS pathway: N/A Colon & Rectal Surgery Evidence-based* Discharge Criteria [x] adequate oral intake [x] adequate urine output [x] ambulating independently >4X day in hallway [x] effective peristalsis: consistently passing flatus and/or stool [x] no evidence of complications; educated about signs and symptoms of complications [x] pain controlled with oral meds [x] Tylenol alternating every three hours with Ibuprofen (with food) around the clock (assuming no contraindications to either). [] ex. Tylenol 12pm, Ibuprofen 3pm, Tylenol 6pm, Ibuprofen 9pm [] Tramadol, Dilaudid, or Oxycodone for breakthrough pain [x] follow-up appointment already scheduled -call Armida Reid [phone] for scheduling assistance -call the General Surgery Clinic nurses [phone] for prior authorizations assistance Only if applicable (check either NA or at end after scheduled): [x] NA visiting nurse arrangements in place [] [x] NA ostomy nursing appt. POD# 12-14 [] [x] NA subQ drain(s) stay in until < 30 cc / 24 hours each x 3 days in a row [] [x] NA luis out POD #12-14 (General Surgery nurses clinic for drain/staple removal) [] *Melba MTZ Jr, et al. Criteria to determine readiness for hospital discharge following colorectal surgery: an international consensus using the Bayard technique. Dis Colon Rectum. 2012 Sep;55(4):416-23. Vital Signs Last value Range last 24hrs Temperature Temp: 36.8 ??C (98.2 ??F) Temp: [36.4 ??C (97.5 ??F)-36.8 ??C (98.2 ??F)] Heart Rate Heart Rate: 89 Heart Rate: [89] Blood Pressure BP: 170/84 BP: (138-173)/(68-112) Respiratory Rate Resp: 16 Resp: [16-18] SpO2 SpO2: 97 % SpO2: [97 %-98 %] Pertinent Lab Data: Recent Labs 10/09/23 0937 10/08/23 1650 10/06/23 1300 WBC 9.8* 9.6* 10.0* HGB 11.7 11.7 12.4 HCT 35.1* 34.0* 38.8 PLATELET 352 351 303 Recent Labs 10/09/23 0937 10/08/23 1656 10/06/23 1300 NA 140 141 136 K 4.1 4.2 4.2 CL 101 103 99 CO2 BUN 11 15 13 CREATININE 0.60* 0.67* 0.59* GLUCOSE 231* 144 134 CALCIUM 9.0 9.3 9.1 MAGNESIUM 0.82 -- -- PHOS 4.2 -- -- Recent Labs 10/08/23 1650 10/06/23 1300 CRP 58.4* 110.2* Physical Exam: Body mass index is 35.9 kg/m??. GENERAL: well appearing, no acute distress HEENT: Moist mucous membranes. Sclera anicteric. LUNG: No respiratory distress. CARDIAC: Regular rate and rhythm ABDOMEN/GI: Midline wound with superior aspect of wound opened and packed. Cellulitis improved, with small amount of residual around wound, warm to touch. EXTREMITIES: no edema SKIN: warm, dry NEURO: moving all four extremities. No focal deficits noted. Imaging: No new imaging Results for orders placed or performed during the hospital encounter of 10/08/23 CT Abdomen & Pelvis w Contrast (Exam End: 10/08/2023 9:16 PM) Result Value WORKSTATION ID [id number] Impression 1. Status post partial right colectomy with expected early postoperative fat stranding near the resection bed. No bowel obstruction. No intra-abdominal abscess. 2. Linear midline supraumbilical intra-abdominal fat stranding may represent normal versus infected ventral midline incision in the appropriate clinical setting. No discrete abscess identified. 3. No acute infectious/inflammatory intra-abdominal/pelvic findings. These findings were discussed with the on-call surgical team at the workstation at 9:35 PM 10/08/2023. Preliminary report signed by: Harshil Gutierres at 10/08/2023 9:51 PM I have personally reviewed the image(s) and the resident's interpretation and agree with the findings, Evans King MD at 10/08/2023 10:19 PM Thank you for letting us participate in the care of this patient. If you are a health care provider and have any questions regarding this report, please contact the number below. For patients who have questions please contact the health insurance healthcare representative that requested your imaging first. Condition at discharge: Stable Mental Status: awake and alert, oriented x 3 Medications: Your Medications New Medications Dose Details doxycycline 100 mg tablet Commonly known as: Avidoxy Take 1 tablet by mouth 2 times daily for 8 days. 100 mg Quantity: 16 tablet Refills: 0 Continued medications, unchanged Dose Details acetaminophen 500 mg tablet Commonly known as: Tylenol Take 1,000 mg by mouth every 6 hours as needed for Pain. 1,000 mg Refills: 0 b complex vitamins Capsule Take 1 capsule by mouth every morning. 1 capsule Refills: 0 Ca carb-Ca gluc-Mg ox-Mg gluco 500 mg calcium -250 mg Tablet Take 2 tablets by mouth daily. 2 tablet Refills: 0 cholecalciferol (Vitamin D3) 50 mcg (2,000 unit) tablet Commonly known as: Vitamin D3 TAKE 1 TO 2 CAPSULES BY MOUTH DAILY Refills: 0 cyanocobalamin (vitamin B-12) 500 mcg tablet Commonly known as: Vitamin B-12 Take 500 mcg by mouth. 500 mcg Refills: 0 enoxaparin 40 mg/0.4 mL Syringe Commonly known as: Lovenox Inject 0.4 mLs subcutaneously nightly for 22 days. 40 mg Quantity: 8.8 mL Refills: 0 ibuprofen 800 mg tablet Commonly known as: Advil Take 800 mg by mouth as needed for Pain. 800 mg Refills: 0 lidocaine 5% Adhesive Patch, Medicated Commonly known as: Lidoderm Apply 1 patch onto the skin daily. (leave on for 12 hours and remove for 12 hours) Refills: 0 magnesium 250 mg tablet Take by mouth. Refills: 0 methocarbamoL 500 mg tablet Commonly known as: Robaxin Take 500 mg by mouth as needed. 500 mg Refills: 0 ondansetron 8 mg tablet Commonly known as: Zofran Take 1 tablet by mouth every 8 hours as needed for Nausea (Alternate with compazine). 8 mg Quantity: 20 tablet Refills: 0 prochlorperazine 10 mg tablet Commonly known as: Compazine Take 1 tablet by mouth every 6 hours as needed for Nausea. 10 mg Quantity: 30 tablet Refills: 5 STOPPED Medications amoxicillin-clavulanate 875-125 mg tablet Commonly known as: Augmentin Disposition: Home Allergies: Allergies Allergen Reactions Bactrim [Sulfamethoxazole-Trimethoprim] Hives Keflex [Cephalexin] Hives Outpatient Services/Studies: No discharge procedures on file. Scheduled Appointments: Future Appointments and Orders Future Appointments and Orders Future Appointments Provider Department Dept Phone 10/11/2023 11:00 AM LAB, [facility] L [facility] Arrive at: [facility] 10/11/2023 12:00 PM Ema Garcia MD General Surgery at [facility] Arrive at: [facility] [phone] 10/29/2023 11:00 AM Ann Tello APRN; Derek Lindquist MD Hematology/Oncology at [facility] Arrive at: [email or web address]] door at end of hallway [phone] 11/01/2023 1:00 PM Ema Garcia MD General Surgery at [facility] Arrive at: [facility] [phone] Instructions Given to Patient at Discharge: Patient Instructions Colon and Rectal Surgery Patient Discharge Instructions Activity level: Avoid heavy lifting for the next 4-6 weeks or until cleared to do so at follow-up appointment. To expound on this, no straining, lifting, pushing, pulling greater than 8 lbs (similar to a gallon of milk) during this time frame. Do not engage in any activities that would engage your c ore/abdominal muscles. No running, jumping, etc. Otherwise activity as tolerated by comfort level. It is OK to walk, and you should be encouraged to walk frequently. Diet: Regular diet. You should try and drink 2 liters of fluids daily. Driving: No driving while still taking opioid pain medications (wait at least 6- 8 hours since last dose) . No driving if you are still sore from surgery as it may limit your ability to react quickly if necessary. Shower/Bath: You may shower and get incision(s) wet. Pat dry immediately following. Do not scrub them vigorously for the next 2-3 weeks. Do not soak incision(s) for the next 2 weeks (i.e. soaking in bath or swimming) as this may promote a wound infection. Wound Care: Daily dressing changes with moist gauze and tape. May change additional as needed. Lovenox: Continue the home lovenox as prescribed after your original hospitalization Pain Medication: Tylenol should be used as primary ogmg-eug-pjpidhx pain reliever; 1000mg every 6 hours as needed. Do not exceed 4000mg in 24 hours. Ibuprofen may also be used and dosed at 600mg every 6 hours as well and should be taken with food. Alternate these two medications every three hours around the clock. ex. Tylenol 9am, Ibuprofen 12-noon, Tylenol 3pm, Ibuprofen 6pm, etc. Ibuprofen should only be used for a maximum of 2 weeks post-operatively. In addition to these medications, non-opioid therapies and non-pharmacologic modalities such as heating pad, ice, and activity modification are recommended as appropriate for adjunct treatment of your pain. Follow up Appointments: You will receive a phone call and/or a letter in the mail with information about your appointments. Please call [phone] (clinic number for appointments only) to confirm date and time of your appointments or if you do not receive information about your appointment in a timely manner. For nursing questions, please call . Future Appointments Date Time Provider Department Center 10/11/2023 11:00 AM AL[facility], THREE L Lab 3 [facility] 10/11/2023 12:00 PM Ema Garcia MD [facility] 10/29/2023 11:00 AM [address]quist MD [facility] [place] [facility] 11/01/2023 1:00 PM Ema Garcia MD [facility] Call your doctor if: You develop any of the following sings or symptoms of infection: Redness or swelling of your incision (some mild redness around the incision and the staple sites isnormal) Drainage or bleeding from your incision Fever over 100.5 F Increased pain or discomfort at the incision site Persistent nausea and/or vomiting or the inability to keep foods or fluids down in a 24 hour period. Signs or symptoms of dehydration: Dry mouth Dark, concentrated urine, or lack of urine Lightheadedness Any other concerning sign or symptom such as shortness or breath, chest pain, pain with urination or other signs of urinary tract infection (UTI), or new leg pain/swelling. Also, please call if you develop increasing abdominal pain, abdominal firmness, if you stop passing gas or stool for an extended period of time, or bloody bowel movements/vomiting. CALL THE GENERAL SURGERY CLINIC DURING WORKING HOURS AT , OR CALL AFTER CLINIC HOURS, WEEKENDS AND HOLIDAYS: ASK FOR THE SURGERY RESIDENT [address] [place] IF ANY OF THE ABOVE OCCUR. Divison of [place] [address] ~~~~~~~~~~~~~~~~~~~~~~~~~~~~~~~~~~~~~~~~~~~~~~~~~~~~~~~~~~~~~~~~~~~ General Instructions None [facility] Surgery - Provider Contact Information: [phone] [facility] Physician: Hina Johnson [address] / [place] [address] Signed: Barby Amin MD 10/09/23 11:11 AM documented in this encounter Discharge Instructions * Patient Instructions* Monique Spivey MD - 10/09/2023 9:00 AM EDT Images from the original note were not included. Colon and Rectal Surgery Patient Discharge Instructions Activity level: Avoid heavy lifting for the next 4-6 weeks or until cleared to do so at follow-up appointment. To expound on this, no straining, lifting, pushing, pulling greater than 8 lbs (similar to a gallon of milk) during this time frame. Do not engage in any activities that would engage your c ore/abdominal muscles. No running, jumping, etc. Otherwise activity as tolerated by comfort level. It is OK to walk, and you should be encouraged to walk frequently. Diet: Regular diet. You should try and drink 2 liters of fluids daily. Driving: No driving while still taking opioid pain medications (wait at least 6- 8 hours since last dose) . No driving if you are still sore from surgery as it may limit your ability to react quickly if necessary. Shower/Bath: You may shower and get incision(s) wet. Pat dry immediately following. Do not scrub them vigorously for the next 2-3 weeks. Do not soak incision(s) for the next 2 weeks (i.e. soaking in bath or swimming) as this may promote a wound infection. Wound Care: Daily dressing changes with moist gauze and tape. May change additional as needed. Lovenox: Continue the home lovenox as prescribed after your original hospitalization Pain Medication: Tylenol should be used as primary hqaf-cow-sxnexdi pain reliever; 1000mg every 6 hours as needed. Do not exceed 4000mg in 24 hours. Ibuprofen may also be used and dosed at 600mg every 6 hours as well and should be taken with food. Alternate these two medications every three hours around the clock. ex. Tylenol 9am, Ibuprofen 12-noon, Tylenol 3pm, Ibuprofen 6pm, etc. Ibuprofen should only be used for a maximum of 2 weeks post-operatively. In addition to these medications, non-opioid therapies and non-pharmacologic modalities such as heating pad, ice, and activity modification are recommended as appropriate for adjunct treatment of your pain. Follow up Appointments: You will receive a phone call and/or a letter in the mail with information about your appointments. Please call [phone] (clinic number for appointments only) to confirm date and time of your appointments or if you do not receive information about your appointment in a timely manner. For nursing questions, please call . Future Appointments Date Time Provider Department Center 10/11/2023 11:00 AM LAB, THREE L Lab 3L [facility] 10/11/2023 12:00 PM Ema Garcia MD [facility] 10/29/2023 11:00 AM Derek Lindquist MD [facility] [place] [facility] 11/01/2023 1:00 PM Ema Garcia MD [facility] SURG [facility] Call your doctor if: You develop any of the following sings or symptoms of infection: Redness or swelling of your incision (some mild redness around the incision and the staple sites isnormal) Drainage or bleeding from your incision Fever over 100.5 F Increased pain or discomfort at the incision site Persistent nausea and/or vomiting or the inability to keep foods or fluids down in a 24 hour period. Signs or symptoms of dehydration: Dry mouth Dark, concentrated urine, or lack of urine Lightheadedness Any other concerning sign or symptom such as shortness or breath, chest pain, pain with urination or other signs of urinary tract infection (UTI), or new leg pain/swelling. Also, please call if you develop increasing abdominal pain, abdominal firmness, if you stop passing gas or stool for an extended period of time, or bloody bowel movements/vomiting. CALL THE GENERAL SURGERY CLINIC DURING WORKING HOURS AT , OR CALL AFTER CLINIC HOURS, WEEKENDS AND HOLIDAYS: ASK FOR THE SURGERY RESIDENT [address] [place] IF ANY OF THE ABOVE OCCUR. Divison of Colon [place] [address] ~~~~~~~~~~~~~~~~~~~~~~~~~~~~~~~~~~~~~~~~~~~~~~~~~~~~~~~~~~~~~~~~~~~ documented in this encounter Medications at Time [...] Take 500 mg by mouth as needed. doxycycline (Avidoxy) 100 mg tablet Take 1 tablet by mouth 2 times daily for 8 days. 16 tablet 10/09/2023 10/17/2023 enoxaparin (Lovenox) 40 mg/0.4 mL Syringe Inject [...] as of this encounter Progress Notes * Monique Spivey MD - 10/09/2023 6:38 AM EDT Colorectal Surgery Inpatient Progress Note ID: Blanca Lujan is a 67 y.o. 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 Procedures this Hospitalization: None 24hr EVENTS: -CT with no acute intra-abdominal findings -Wound opened at bedside and packed with wet to dry dressing -Started on IV ceftriaxone and admitted to the floor SUBJECTIVE Blanca Lujan reports feeling improved today, although she did not sleep well last night. She denies abdominal pain, fevers/chills. VITALS: Last value Range last 24 hrs Temperature Temp: 36.4 ??C (97.5 ??F) Temp: [36.4 ??C (97.5 ??F)-36.8 ??C (98.2 ??F)] Heart Rate Heart Rate: 89 Heart Rate: [89] Blood Pressure BP: (!) 173/96 BP: (138-173)/(68-112) Respiratory Rate Resp: 18 Resp: [16-18] SpO2 SpO2: 98 % SpO2: [97 %-98 %] INTAKE/OUTPUT Last 24 Current Shift 10/07 07 - 10/08 0700 In: 360 [P.O.:360] Out: - 10/07 1901 - 10/08 0700 In: 360 [P.O.:360] Out: - DRAINS None PHYSICAL EXAM GENERAL: well appearing, no acute distress HEENT: Moist mucous membranes. Sclera anicteric. LUNG: No respiratory distress. CARDIAC: Regular rate and rhythm ABDOMEN/GI: Midline wound with superior aspect of wound opened and packed. Cellulitis improved, with small amount of residual around wound, warm to touch. EXTREMITIES: no edema SKIN: warm, dry NEURO: moving all four extremities. No focal deficits noted. LABORATORY STUDIES: Recent Labs 10/08/23 1650 10/06/23 1300 WBC 9.6* 10.0* HGB 11.7 12.4 HCT 34.0* 38.8 PLATELET 351 303 No results for input(s): PT, PTT, INR in the last 168 hours. Recent Labs 10/08/23 1656 10/06/23 1300 10/04/23 0457 NA 141 136 140 K 4.2 4.2 3.4* CL 103 99 103 CO2 BUN 15 13 11 CREATININE 0.67* 0.59* 0.60* GLUCOSE 144 134 129 Recent Labs 10/08/23 1656 10/06/23 1300 10/04/23 0457 10/03/23 0154 CALCIUM 9.3 9.1 8.6 8.4* MAGNESIUM -- -- 0.78 0.87 Recent Labs 10/06/23 1300 AST 23 ALT 29 ALKPHOS 76 BILITOT 0.2 LIPASE 62* No results for input(s): PHART, LSK4RRG, PO2ART, XGD2ASG, BEART in the last 168 hours. MICRO: Wound culture (10/06/23): E coli NEW IMAGING: None new ASSESSMENT: Blanca Lujan is a 67 y.o. 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 Will plan to perform daily dressing change with nursing and her daughter at bedside. Discus with IDpossible PO regimens for treatment of her cellulitis. NEURO: tylenol do, ibuprofen do for pain; home flexeril CV: No acute issues. PULM: Hx ZARA, continue home CPAP. Encourage pulmonary toilet. FEN/GI: Regular diet; Last BM: 10/07 RENAL: UOP adequate. Replete electrolytes prn. ENDO: No acute issues HEME: DVT ppx: lovenox ID: Cellulitis and superificial abscess of midline wound: Continue ceftriaxone (day 2). Discuss with ID PO regimen WOUND: Daily wet to dry dressing changes LINES: PIV CODE: Attempt Cardiopulmonary Resuscitation - Inpatient DISPO: Floor status Anticipated discharge needs: SILVIA Spivey MD 10/09/2023 Colorectal Surgery * Casie Doherty RN - 10/09/2023 3:12 AM EDT OUTCOME EVALUATION NOTE: OUTCOME SUMMARY: Patient's pain controlled with scheduled and PRN pain medication. Patient cooperative with care andresting between care. No adverse events this shift. VSS. Will continue to monitor and help patient reach d/c goals. PLAN MOVING FORWARD: Pain control Mobilize D/c planning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 liver 04/29/2023. No new hepatic lesions. Gallbladder: No gallbladder wall thickening. No calcified gallstones. There is some fat stranding adjacent to the gallbladder, however this extends from the partial colectomy surgical resection bed. Spleen: Unremarkable. Pancreas: Unremarkable. Adrenal Glands: Unremarkable. RIGHT Kidney: Unremarkable. LEFT Kidney: Unremarkable. Urinary Bladder: Unremarkable. GI: Post partial right colectomy changes. Enteric contrast is seen from the stomach through the proximal descending colon. Expected appearance of the ileocolonic anastomosis, no focal transition point or bowel wall thickening. No dilated loops of large or small bowel. Mesentery/Peritoneum: Mild fat stranding and trace fluid layering adjacent to the right partial colectomy resection bed. No new soft tissue nodularity. No loculated fluid collection. No pneumoperitoneum. Vasculature: Unremarkable. Osseous Structures: No acute osseous findings. No suspicious lytic or blastic osseous lesions. Unchanged degenerative disc changes with disc space height loss and endplate proliferative changes most severe at L4-L5. Abdominal wall: Linear subcutaneous fat stranding along the supraumbilical midline soft tissue without a loculated fluid collection or thick rimmed abscess. Procedure Note Evans King MD - 10/08/2023 EXAMINATION: CT ABDOMEN AND PELVIS W CONTRAST CLINICAL HISTORY: Abdominal abscess/infection suspected; IV and POabscess. 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 TECHNIQUE: Helical CT of the abdomen and pelvis following theintravenous administration of contrast. Administered 111.0 ml of OMNIPAQUE 350.00mg/ml. Oral contrast was administered. COMPARISON: CT chest abdomen and pelvis 08/03/2023 MRI abdomen 04/29/2023 FINDINGS: Included Lower Chest: No focal consolidation the visualized lung bases.No effusions. Known venous port catheter tip terminates in the rightatrium. Liver: Unchanged hepatic steatosis with stable partially fatty lesionadjacent to the falciform ligament, better seen on MRI liver 04/29/2023. No newhepatic lesions. Gallbladder: No gallbladder wall thickening. No calcified gallstones.There is some fat stranding adjacent to the gallbladder, however this extends fromthe partial colectomy surgical resection bed. Spleen: Unremarkable. Pancreas: Unremarkable. Adrenal Glands: Unremarkable. RIGHT Kidney: Unremarkable. LEFT Kidney: Unremarkable. Urinary Bladder: Unremarkable. GI: Post partial right colectomy changes. Enteric contrast is seen fromthe stomach through the proximal descending colon. Expected appearance ofthe ileocolonic anastomosis, no focal transition point or bowel wallthickening. No dilated loops of large or small bowel. Mesentery/Peritoneum: Mild fat stranding and trace fluid layering adjacentto the right partial colectomy resection bed. No new soft tissue nodularity.No loculated fluid collection. No pneumoperitoneum. Vasculature: Unremarkable. Osseous Structures: No acute osseous findings. No suspicious lytic orblastic osseous lesions. Unchanged degenerative disc changes with disc spaceheight loss and endplate proliferative changes most severe at L4-L5. Abdominal wall: Linear subcutaneous fat stranding along thesupraumbilical midline soft tissue without a loculated fluid collection or thick rimmed abscess. IMPRESSION 1. Status post partial right colectomy with expected early postoperativefat stranding near the resection bed. No bowel obstruction. Nointra-abdominal abscess. 2. Linear midline supraumbilical intra-abdominal fat stranding mayrepresent normal versus infected ventral midline incision in the appropriateclinical setting. No discrete abscess identified. 3. No acute infectious/inflammatory intra-abdominal/pelvic findings. These findings were discussed with the on-call surgical team at theworkstation at 9:35 PM 10/08/2023. Preliminary report signed by: Harshil Gutierres at 10/08/2023 9:51 PM I have personally reviewed the image(s) and the resident's interpretationand agree with the findings, Evans King MD at 10/08/2023 10:19 PM Thank you for letting us participate in the care of this patient. If youare a health care provider and have any questions regarding this report,please contact the number below. For patients who have questions please contactthe health insurance healthcare representative that requested your imaging first. Walt Oreilly MD IMG CT ORDERABLES * Blood culture (10/08/2023 4:56 PM EDT) Blood Culture No growth at 5 days. [facility] Blood 10/08/2023 4:56 PM EDT 10/08/2023 5:11 PM EDT Narrative Resulting Agency Comment Spec In Lab Katelin Madison BRAND MARKETING COORDINATOR MICROBIOLOGY - BL OOD ORDERABLES [facility] [place] [address] * (ABNORMAL) Basic Metabolic Panel (non-fasting) (10/08/2023 4:56 PM EDT) Glucose 144 65 - 199 mg/dL [facility] Comment:Diabetes: >=200 mg/d L plus symptoms Blood Urea Nitrogen 15 8 - 18 mg/dL [facility] Creatinine 0.67(L) 0.70 - 1.20 mg/dL [facility] Sodium 141 135 - 145 mmol/L [facility] Comment:result rechecked-kd Potassium 4.2 3.5 - 5.0 mmol/L [facility] Comment: result rechecked-kd Please note: ??Patients with WBC >100,000 may have falsely elevated Potassium levels. ??For accurate Potassium quantification in these patients send serum separator tube (gold top) for subsequent determinations. ??Contact the Clinical Chemistry Laboratory if there are any questions. Chloride 103 98 - 107 mmol/L [facility] Comment:result rechecked-kd Carbon Dioxide 24 22 - 31 mmol/L [facility] Anion Gap 14 5 - 15 mmol/L [facility] Calcium 9.3 8.5 - 10.5 mg/dL [facility] Est Glomerular Filtration Rate 97 >=60 mL/min/1. 73 m?? [facility] Comment: This patient's estimated [...] and symptoms in addition to eGFR. Blood 10/08/2023 4:56 PM EDT 10/08/2023 5:03 PM EDT Narrative Resulting Agency Comment Spec In Lab Katelin Madison APRN CHEMISTRY ORDERAB LES Performing Organization Address City/[facility]/ZIP Co de Phone Number [facility] [place] [address] * (ABNORMAL) CRP, acute inflammation (10/08/2023 4:50 PM EDT) C-Reactive Protein 58.4(H) <=4.9 mg/L [facility] Blood Venous Draw / Unknown 10/08/2023 4:50 PM EDT 10/08/2023 5:09 PM EDT Narrative Resulting Agency Comment Spec In Lab Monique Spivey MD CHEMISTRY ORDERABLES Performing Organization Address [facility] Co de Phone Number [facility] [place] [address] * Gold Tube HOLD (10/08/2023 4:50 PM EDT) Gold Hold Sample in lab. [facility] Blood Venous Draw / Unknown 10/08/2023 4:50 PM EDT 10/08/2023 5:04 PM EDT Katelin Madison APRN CHEMISTRY ORDERAB LES Performing Organization Address [facility] Co de Phone Number [facility] [place] [address] * Blue Tube HOLD (10/08/2023 4:50 PM EDT) Blue Hold Sample in lab. [facility] Blood Venous Draw / Unknown 10/08/2023 4:50 PM EDT 10/08/2023 5:03 PM EDT Katelin Madison APRN HEMATOLOGY ORDERA BLES [facility] [place] [address] * (ABNORMAL) Differential, Automated (10/08/2023 4:50 PM EDT) Neutrophil % 63.5 % [facility] Neutrophil Absolute 6.08 1.70 - 6.10 x10(3)/mc L [facility] Lymph % 23.1 % [facility] Lymphocytes Abs 2.2 0.9 - 3.2 x10(3)/mc L [facility] Monocyte % 8.1 % [facility] Monocyte Abs 0.8 0.3 - 0.9 x10(3)/mc L [facility] Eos % 2.5 % [facility] Eosinophils Abs 0.2 0.0 - 0.4 x10(3)/mc L [facility] Basophil % 0.8 % [facility] Baso Absolute 0.1 0.0 - 0.1 x10(3)/mc L [facility] Immature Gran % 2.00 % [facility] Comment: Immature granulocytes(IG's)percentage and absolute count will include metamyelocytes, myelocytes, and promyelocytes. Blood smears from CBCs yielding IG's will be scanned manually for concordance. If this scan disagrees with the automated IG or if promyelocytes are noted, a manual differential will be performed. Immature Gran Absolute 0.19(H) 0.00 - 0.04 x10(3)/ L [facility] Blood 10/08/2023 4:50 PM EDT 10/08/2023 5:03 PM EDT Narrative Resulting Agency Comment Spec In Lab Katelin Madison APRN HEMATOLOGY ORDERA BLES [facility] [place] [address] * (ABNORMAL) Hemogram (10/08/2023 4:50 PM EDT) White Blood Cell 9.6(H) 4.0 - 9.5 x10(3)/ L [facility] Red Blood Cell 3.76(L) 4.00 - 5.21 x10(6)/mc L [facility] Hemoglobin 11.7 11.7 - 15.5 g/dL [facility] Hematocrit 34.0(L) 35.7 - 45.8 % [facility] Mean Cell Volume 90.4 82.6 - 94.4 fL [facility] Mean Cell Hemoglobin 31.1 27.1 - 32.0 pg [facility] Mean Cell Hemoglobin Concentration 34.4 31.7 - 35.0 g/dL [facility] Platelet 351 145 - 357 x10(3)/mc L [facility] RDW Standard Deviation 39.4 37.0 - 46.0 fL [facility] RDW coefficient of variation 11.9 11.5 - 14.1 % [facility] Mean Platelet Volume 8.9 7.6 - 12.9 fL [facility] NRBC% auto 0.0 % [facility] NRBC Absolute 0.000 0.000 - 0.000 x10(3)/ L [facility] Blood 10/08/2023 4:50 PM EDT 10/08/2023 5:03 PM EDT Narrative Resulting Agency Comment Spec In Lab Katelin Madison APRN HEMATOLOGY ORDERA BLES [facility] [place] [address] documented in this encounter Visit Diagnoses Diagnosis Wound infection- Primary Posttraumatic wound infection not elsewhere classified Infection of deep incisional surgical site after procedure, initial encounter documented in this encounter Admitting Diagnoses Diagnosis Wound infection Posttraumatic wound infection not elsewhere classified documented in this encounter Administered Medications Inactive Administered Medications - up to 3 most recent administrations Medication Order MAR Action Action Date Dose Rate Site acetaminophen (Ofirmev) (1,000 mg/100 mL) infusion 1,000 mg 1,000 mg, Intravenous, at 400 mL/hr, Administer over 15 Minutes, EVERY 8 HOURS SCHEDULED, 3 doses, First dose on 10/09/23 at 0200, Last dose on 10/09/23 at 1800, Maximum dose of acetaminophen is 4,000 mg from all sources in 24 hours. When ordered for pain, acetaminophen should be given even when other ordered pain medications are indicated., Routine, Is ketorolac (Toradol) IV contraindicated? Yes, Can this patient tolerate oral medications or suppositories? No Given 10/09/2023 1:32 AM EDT 1,000 mg 400 mL/hr acetaminophen (Tylenol) tablet 975 mg 975 mg, Oral, EVERY 6 HOURS PRN, Starting on 10/09/23 at 0900, Until 10/09/23 at 1758, Pain, Maximum dose of acetaminophen is 4,000 mg from all sources in 24 hours. When ordered for pain, acetaminophen should be given even when other ordered pain medications are indicated. , Routine Given 10/09/2023 11:22 AM EDT 975 mg cefTRIAXone (Rocephin) 1 g vial attach to sodium chloride 0.9% 50 mL Mini-Bag Plus 1 g, Intravenous, EVERY 24 HOURS, First dose on 10/09/23 at 0145, Until Discontinued, Administer over 30 Minutes, Indication for (Active or Suspected): Skin/Skin Structure New Bag 10/09/2023 1:32 AM EDT 1 g 100 mL/hr cyclobenzaprine (Flexeril) tablet 10 mg 10 mg, Oral, 3 TIMES DAILY PRN, Starting on 10/09/23 at 0127, Until 10/09/23 at 1758, Muscle spasms, Routine Given 10/09/2023 1:48 AM EDT 10 mg doxycycline monohydrate (Monodox) capsule 100 mg 100 mg, Oral, 2 TIMES DAILY, First dose on 10/09/23 at 1215, Until Discontinued, Give this medication 2 hours BEFORE, or 6 hours AFTER products with multivalent cations (e.g. Calcium, Iron, Zinc, Magnesium, Aluminum). Do not coadminister, Routine, Indication for (Active or Suspected): Skin/Skin Structure Given 10/09/2023 11:25 AM EDT 100 mg iohexoL (Omnipaque) (350 mg/mL) solution 0-200 mL 0-200 mL, Intravenous, ONCE PRN, 1 dose, Starting on Wed10/08/23 at 2116, Until Wed10/08/23 at 2116, Per Protocol, Warning Vesicant/Irritant Medication , Radiology Contrast, Routine Given 10/08/2023 9:16 PM EDT 100 mLs iohexoL (Omnipaque) (350 mg/mL) solution 0-50 mL 0-50 mL, Oral, ONCE, 1 dose, On Wed10/08/23 at 2118, Warning Vesicant/Irritant Medication , Radiology Contrast, Routine Given 10/08/2023 9:18 PM EDT 50 mLs lactobacillus with pectin capsule 1 capsule 1 capsule, Oral, DAILY, First dose on Wed10/09/23 at 0930, Until Discontinued, Routine Given 10/09/2023 11:15 AM EDT 1 capsule lidocaine (Lidoderm) 5% patch 1 patch 1 patch, Transdermal, Administer over 12 Hours, DAILY, First dose on Wed10/09/23 at 0900, Until Discontinued, Apply patch(es) for 12 hours, and then remove for 12 hours., Routine Patch Applied 10/09/2023 8:07 AM EDT 1 patch 12- Chest (Right) piperacillin-tazobacta m (Zosyn) 4.5 g vial attach to sodium chloride 0.9% 100 mL Mini-Bag Plus 4.5 g, Intravenous, ONCE, 1 dose, On Wed10/08/23 at 1818, Administer over 0.5 Hours, Warning Vesicant/Irritant Medication Do not administer or Y-site with lactated ringers., Indication for (Active or Suspected): GI/Intra-abdominal New Bag 10/08/2023 6:30 PM EDT 4.5 g 200 mL/hr sodium chloride 0.9 % (flush) (BD PosiFlush Normal Saline 0.9) flush 5 mL 5 mL, Intravenous, 2 TIMES DAILY, First dose on 10/09/23 at 0145, Until Discontinued, Recovery (Recovery-Hospital Unit), Routine Given 10/09/2023 8:01 AM EDT 5 mLs vitamin B Complex-vitamin C-folic Acid (Lizeth-bishnu) 0.8 mg per tablet 1 tablet 1 tablet, Oral, EVERY MORNING, First dose on 10/09/23 at 0700, Until Discontinued, Routine Given 10/09/2023 7:57 AM EDT 1 tablet documented in this encounter Active and Recently Administered Medications Times are shown in EDT. Scheduled Medication Order 10/07/2023 10/08/2023 10/09/2023 acetaminophen (Ofirmev) (1,000 mg/100 mL) infusion 1,000 mg (CANCELED) 1,000 mg, Intravenous, at 400 mL/hr, Administer over 15 Minutes, EVERY 8 HOURS SCHEDULED, 3 doses, First dose on 10/09/23 at 0200, Last dose on 10/09/23 at 1800, Maximum dose of acetaminophen is 4,000 mg from all sources in 24 hours. When ordered for pain, acetaminophen should be given even when other ordered pain medications are indicated., Routine, Is ketorolac (Toradol) IV contraindicated? Yes, Can this patient tolerate oral medications or suppositories? No 0132 (Given - Provid er: Casie Doherty RN) cefTRIAXone (Rocephin) 1 g vial attach to sodium chloride 0.9% 50 mL Mini-Bag Plus (CANCELED) 1 g, Intravenous, EVERY 24 HOURS, First dose on 10/09/23 at 0145, Until Discontinued, Administer over 30 Minutes, Indication for (Active or Suspected): Skin/Skin Structure 0132 (New Bag - Prov ider: Casie Doherty RN)0202 (Stopped - Provider: Casie Doherty RN) doxycycline monohydrate (Monodox) capsule 100 mg 100 mg, Oral, 2 TIMES DAILY, First dose on 10/09/23 at 1215, Until Discontinued, Give this medication 2 hours BEFORE, or 6 hours AFTER products with multivalent cations (e.g. Calcium, Iron, Zinc, Magnesium, Aluminum). Do not coadminister, Routine, Indication for (Active or Suspected): Skin/Skin Structure 1125 (Given - Provid er: Margarita Price RN) enoxaparin (Lovenox) (40 mg/0.4 mL) subcutaneous injection 40 mg 40 mg, Subcutaneous, NIGHTLY, First dose on Wed10/09/23 at 2100, Until Discontinued, Routine iohexoL (Omnipaque) (350 mg/mL) solution 0-50 mL (COMPLETED) 0-50 mL, Oral, ONCE, 1 dose, On Wed10/08/23 at 2118, Warning Vesicant/Irritant Medication , Radiology Contrast, Routine 2117 (Given - Provider: Jose Luis Noyola) lactobacillus with pectin capsule 1 capsule 1 capsule, Oral, DAILY, First dose on Wed10/09/23 at 0930, Until Discontinued, Routine 1115 (Given - Provid er: Margarita Price RN) lidocaine (Lidoderm) 5% patch 1 patch 1 patch, Transdermal, Administer over 12 Hours, DAILY, First dose on Wed10/09/23 at 0900, Until Discontinued, Apply patch(es) for 12 hours, and then remove for 12 hours., Routine 0807 (Patch Applied - Provider: Margarita Price RN)1558 (Due: Patch Removed - Provider: Automatic Discharge Provider - Comment: Time automatically adjusted from order being discontinued) piperacillin-tazobactam (Zosyn) 4.5 g vial attach to sodium chloride 0.9% 100 mL Mini-Bag Plus (COMPLETED) 4.5 g, Intravenous, ONCE, 1 dose, On Wed10/08/23 at 1818, Administer over 0.5 Hours, Warning Vesicant/Irritant Medication Do not administer or Y-site with lactated ringers., Indication for (Active or Suspected): GI/Intra-abdominal 183 (New Bag - Provider: Paty Arroyo RN)1900 (Stopped - Provider: Paty Arroyo RN) sodium chloride 0.9 % (flush) (BD PosiFlush Normal Saline 0.9) flush 5 mL 5 mL, Intravenous, 2 TIMES DAILY, First dose on Wed10/09/23 at 0145, Until Discontinued, Recovery (Recovery-Hospital Unit), Routine 0145 (Canceled Entry - Provider: Casie Doherty RN - Reason: See comment - Comment: done)0801 (Given - Provider: Margarita Price RN) vitamin B Complex-vitamin C-folic Acid (Lizeth-bishnu) 0.8 mg per tablet 1 tablet 1 tablet, Oral, EVERY MORNING, First dose on 10/09/23 at 0700, Until Discontinued, Routine 0757 (Given - Provid er: Margarita Price RN) PRN Medication Order 10/07/2023 10/08/2023 10/09/2023 acetaminophen (Tylenol) tablet 975 mg 975 mg, Oral, EVERY 6 HOURS PRN, Starting on 10/09/23 at 0900, Until 10/09/23 at 1758, Pain, Maximum dose of acetaminophen is 4,000 mg from all sources in 24 hours. When ordered for pain, acetaminophen should be given even when other ordered pain medications are indicated. , Routine 1122 (Given - Provid er: Margarita Price RN) cyclobenzaprine (Flexeril) tablet 10 mg 10 mg, Oral, 3 TIMES DAILY PRN, Starting on 10/09/23 at 0127, Until 10/09/23 at 1758, Muscle spasms, Routine 0148 (Given - Provid er: Casie Doherty RN) ibuprofen (Advil) tablet 600 mg 600 mg, Oral, EVERY 6 HOURS PRN, Starting on 10/09/23 at 0056, Until 10/09/23 at 1758, Pain, for MILD pain (1-3), Administer orally with milk or food to minimize GI irritation. Maximum dose of 3,200 mg from all sources in 24 hours, Routine iohexoL (Omnipaque) (350 mg/mL) solution 0-200 mL (COMPLETED) 0-200 mL, Intravenous, ONCE PRN, 1 dose, Starting on Wed10/08/23 at 2116, Until Wed10/08/23 at 211, Per Protocol, Warning Vesicant/Irritant Medication , Radiology Contrast, Routine 2115 (Given - Provider: Jose Luis Noyola) lidocaine (Xylocaine) 1% (10 mg/mL) injection 3 mg 3 mg (0.3 mL), Subcutaneous, ONCE PRN, 1 dose, Starting on 10/09/23 at 0056, Until 10/09/23 at 1758, for discomfort with PIV insertion, Recovery (Recovery-Hospital Unit), Routine naloxone (Narcan) (0.4 mg/mL) injection 0.2 mg 0.2 mg, Intravenous, EVERY 1 MIN PRN, 10 doses, Starting on 10/09/23 at 0056, Until 10/09/23 at 1758, Opioid Reversal, If respiratory rate less than 6 OR the patient is unable to arouse OR SpO2 is declining, Give for respiratory rate of less than or equal to 6 and patient is heavily sedated or unarousable. May repeat every 60 seconds to increase respiratory rate. DO NOT exceed 2 mg total dose., Recovery (Recovery-Hospital Unit), Routine ondansetron (Zofran) tablet 8 mg 8 mg, Oral, EVERY 8 HOURS PRN, Starting on 10/09/23 at 0056, Until 10/09/23 at 1758, Nausea, Alternate with compazine, Routine sodium chloride 0.9 % (flush) (BD PosiFlush Normal Saline 0.9) flush 5-20 mL 5-20 mL, Intravenous, EVERY 1 MIN PRN, Starting on 10/09/23 at 0056, Until 10/09/23 at 1758, flush, Flush pertains to all indwelling lines. Flush per protocol found in the job aid using the link provided on this medication record., Recovery (Recovery-Hospital Unit), Routine documented in this encounter Care Teams Travograph Operator Relationship Specialty Start Date End Date Hina Johnson [address] [place] [address] PCP - General Family Medicine 06/25/23 documented as of this encounter
--- OUTSIDE RECORDS SUMMARY | 2024-01-26 03:07 | XMS_ITS | Encounter Summary ---
Author Organization [facility] Address [facility] [place] [address] Care Team Providers Care Scratcher Tender Name Role Phone SharicathydahliaHina Kay Primary Care Provider +1 [phone] Encounter Details Date Type Department Care Team (Latest Contact Info) Description 11/04/2023 Travel Social History Tobacco Use Types Packs/Day Years Used Date Smoking Tobacco: Former Cigarettes Smokeless Tobacco: Never Alcohol Use Standard Drinks/Week Comments Not Currently 0 (1 standard drink = 0.6 oz pur e alcohol) few times yearly [facility] Utilities Answer Date Recorded In the [...] place to sleep or slept in a group home (including now)? No 09/29/2023 IPV Inpatient [...] EDT Office Visit Hematology/Oncolog y at [address] [address] Derek Lindquist MD [facility] [place] [address] Ann Tello APRN [address] [place] [address] [place] [address] 03/24/2024 1:00 PM EDT Hospital Encounter [place] [phone] Shilo Lopez MD [facility] [place] [address] 03/24/2024 1:00 PM EDT - 03/24/2024 1:45 PM EDT Surgery [place] [phone] Shilo Lopez MD [facility] [place] [address] COLONOSCOPY, DIAGNOSTIC (WRVU 3.26) Scheduled Procedures Name [...] on filedocumented in this encounter Care Teams Scratcher Tender Relationship Specialty Start Date End Date Hina Johnson [address] [place] [address] PCP - General Family Medicine 06/25/23 documented as of this encounter
--- OUTSIDE RECORDS SUMMARY | 2024-01-26 03:07 | XMS_ITS | Encounter Summary ---
Author Organization [facility] Address [facility] [place] [address] Care Team Providers Care Family Manager Name Role Phone EloisaAlvaroHina Primary Care Provider [phone] Encounter Details Date Type Department Care Team (Late st Contact Info) Description 10/06/2023 Telephone General Surgery at [facility] [place] [phone] Roro Barboza RN Social History Tobacco Use Types Packs/Day Years Used Date Smoking Tobacco: Former Cigarettes Smokeless Tobacco: Never Alcohol Use Standard Drinks/Week Comments Yes 0 (1 standard drink = 0.6 oz pur e alcohol) few times yearly [facility] Utilities Answer Date Recorded In the past 12 months has th e [employer], gas, oil, or water Graffiti threatened to shut off services in your [...] encounter Miscellaneous Notes * Telephone Encounter - Roro Barboza RN - 10/06/2023 9:17 AM EDT Blanca Lujan is a 67 y.o. female patient of Dr. Garcia who is s/p: LAPAROSCOPIC ASSISTED COLECTOMY, PARTIAL, REM.TERMINAL ILEUM, CYSTO, STENT PLACEMENT INTRAOP, TEMPORARY (Right) and LAPAROSCOPIC PARTIAL OMENTECTOMY on 09/28/23. Blanca called the clinic line this morning with concerns of an incisional infection. Blanca explainedthat she had concerns about the way the superior aspect of her incision looked prior to being discharged on 10/03. However, the nurse who she discussed this concern with told her it was of no concern and educated her on the signs and symptoms of infection to watch for at home. Blanca went on to explain that since Wednesday the top of her incision has worsened in appearance, it is red, swollen and oozing. When asking what the appearance of the oozing was Blanca states that it it bloody pus. Blanca denies any: fever, chills, nausea or vomiting. She was asked to upload a photo via [email or web address] for us to art valdez however, the patient was unable to perform that task and currently has no one at home with her to help either. Due to her current concerns I have advised Blanca to present to an ED today for evaluation. Blanca does not feel comfortable getting care from her local hospital, because of this I have advised her to present to or [facility] ED today. Blanca verbalized her understanding of this plan and she agrees with it. Blanca explained she does not feel well enough to sit in a waiting room for hours, because of this she will opt to present to [facility] today. This note will be routed to Dr. Garcia to view. documented in this encounter Plan of Treatment Upcoming Encounters Date Type Department Care Team (Late st Contact Info) Description 01/28/2024 10:30 AM EDT Office Visit Hematology/Oncolog y at [address] [address] Derek Lindquist MD [facility] [place] [address] Ann Tello APRN [address] [place] [address] [place] [address] 03/24/2024 1:00 PM EDT Hospital Encounter [place] [address] Shilo Lopez MD [facility] [place] [address] 03/24/2024 1:00 PM EDT - 03/24/2024 1:45 PM EDT Surgery [place] [address] Shilo Lopez MD [facility] [place] [address] COLONOSCOPY, DIAGNOSTIC (WRVU 3.26) Scheduled Procedures Name Priority Associated Diagnoses Date/Ti il COLONOSCOPY, DIAGNOSTIC (WRVU 3.26) Procedure: Colonoscopy Indication: Malignant neoplasm of colon, unspecified part of colon and History of partial colectomy Sedation: IVCS Timeframe: within 2 weeks Specific provider: first available OV needed: No Anticoagulation status: no documented anticoagulation use 03/24/2024 1:00 PM EDT documented as of this encounter Visit Diagnoses Not on filedocumented in this encounter Care Teams Family Manager Relationship Specialty Start Date End Date Hina Johnson [address] [place] [address] PCP - General Family Medicine 06/25/23 documented as of this encounter
--- OUTSIDE RECORDS SUMMARY | 2024-01-26 03:07 | XMS_ITS | Encounter Summary ---
Author Organization [facility] Address [facility] [place] [address] Care Team Providers Care Insulation And Flooring Assembler Name Role Phone SharicathydahliaHina Kay Primary Care Provider [phone] Encounter Details Date Type Department Care Team (Latest Contact Info) Description 10/11/2023 Travel Social History Tobacco Use Types Packs/Day Years Used Date Smoking Tobacco: Former Cigarettes Smokeless Tobacco: Never Alcohol Use Standard Drinks/Week Comments Not Currently 0 (1 standard drink = 0.6 oz pur e alcohol) few times yearly [facility] Utilities Answer Date Recorded In the [...] EDT Office Visit Hematology/Oncolog y at [address] [address] Derek Lindquist MD [facility] [place] [address] Ann Tello APRN [address] [place] [address] DR HEMATOLOGY [place] [address] 03/24/2024 1:00 PM EDT Hospital Encounter [place] [phone] Shilo Lopez MD [facility] [place] [address] 03/24/2024 1:00 PM EDT - 03/24/2024 1:45 PM EDT [place] [phone] Shilo Lopez MD [facility] [place] [address] COLONOSCOPY, DIAGNOSTIC (WRVU 3.26) Scheduled Procedures Name [...] on filedocumented in this encounter Care Teams Insulation And Flooring Assembler Relationship Specialty Start Date End Date Hina Johnson [address] [place] [address] PCP - General Family Medicine 06/25/23 documented as of this encounter
--- OUTSIDE RECORDS SUMMARY | 2024-01-26 03:07 | XMS_ITS | Encounter Summary ---
Author Organization [place] [address] Care Team Providers Care Mechanical Facilities Technician Name Role Phone CristobalHina Kay Primary Care Provider [phone] Reason for Referral * Diagnostic Test (Routine) - Closed Specialty Diagnoses / Procedures Referred By Contac t Referred To Contact Radiology Diagnoses Adenocarcinoma of appendix Procedures IR Mediport Removal Derek Lindquist MD [facility] [place] [address] [facility] [place] [address] Referral ID Status Reason Start Date Expiration Date V isits Requested Visits Authorized [id number] Closed Specialty Service Requested 11/02/2023 05/04/2025 1 1 Reason for Visit * Diagnostic Test (Routine) - Closed Specialty Diagnoses / Procedures Referred By Contac t Referred To Contact Radiology Diagnoses Adenocarcinoma of appendix Procedures IR Mediport Removal Derek Lindquist MD [facility] [place] [address] [facility] [place] [address] Referral ID Status Reason Start Date Expiration Date V isits Requested Visits Authorized [id number] Closed Specialty Service Requested 11/02/2023 05/04/2025 1 1 Encounter Details Date Type Department Care Team (Latest Contact Info) Description 11/04/2023 10:10 AM EDT - 11/04/2023 11:59 PM EDT Hospital Encounter Radiology at [facility] [place] [phone] Derek Lindquist MD [facility] [place] [address] Adenocarcinoma of 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 Social History Tobacco Use [...] in a alf (including now)? No 09/29/2023 [facility] Inpatient Questions Answer Date Recorded Does Anyone [...] EDT Inhaled Oxygen Concentration - - Weight - - Height - - Body Mass Index - - documented in this encounter Discharge Instructions * Discharge Instructions* Cheli Oglesby RN - 11/04/2023 11:37 AM EDT Images from the original note were not included. [facility] Vascular and Interventional Radiology Discharge Instructions for your Chest Port Removal Activity: Relax for the next 24 hours Diet: Drink plenty of fluids. Resume your regular diet Bandage: There is a sterile dressing consisting of small gauze with a clear dressing (Tegaderm or IV 3000). This dressing should be left in place for 48 hours. If the clear dressing becomes loose youshould place tape over the edges to secure it in place. No tub baths, swimming or whirlpools for 1 week. No showering for 48 hours. Note: If you have steri-strips beneath your dressing, simply allow them to fall off. Do not peel them off. There may be Gisela-childress (skin glue) also, allow this to flake off. Do not pick this off. Bathing: Do not take a shower until 48 hours after your port is removed; after this time you may shower with the dressing in place, then remove it and pat your skin dry. After 48 hours, we recommend that you cover the area with THE AQUA GUARD PROVIDED for 1 week while showering, facing away from the shower stream. You may use a bandaid to cover the site after the 48 hours are up if there is any drainage. No tub baths, whirlpools or swimming for one week following port removal. Pain: Apply ice bag to site (s) at 30 minute intervals (30 minutes on and 30 minutes off) for 24 hours?? . May use as needed for pain and/or bruising after 24 hours. When to call your healthcare provider: If you notice bleeding from the incision on your chest, you should lie flat and apply firm pressureover the site for 10-15 minutes, keeping the site covered and call your doctor. If you are still bleeding after 10-15 minutes, reapply pressure, and have someone drive you to the nearest Emergency Department, or call 911. If you develop pain, redness, drainage or swelling at or around chest incision site. If you develop a fever equal to or greater than 101 degrees Fahrenheit. When to call the Interventional Radiology Department: Please call with any questions or concerns. If it is during regular office hours, please call [phone]. If it is after regular office hours, or on weekends or holidays, please call [phone] and ask to speak to the Health And Physical Education Professor account contact associate for Interventional Radiology. You have received medication during your procedure to help lessen anxiety and keep you comfortable.These medications affect judgement and reaction time. We recommend that you do not drive, operate equipment, sign any important documents, or smoke unattended for 24 hours following your procedure. Because of the sedation, be careful on stairs, as you may be unsteady on your feet. You may resume your regular diet as tolerated. IV site -- slight redness, or tenderness is normal, you can use a warm compress. If tenderness and redness increases or foul drainage occurs, please contact your M. D. Revised 03/30/19 documented in this encounter Medications at Time of Discharge Medication Sig Dispensed Refills Start Date End Date acetaminophen (Tylenol) 500 mg tablet Take 1,000 mg by mouth every 6 hours as needed for Pain. ondansetron (Zofran) 8 mg tablet Take 1 tablet by mouth every 8 hours as needed for Nausea (Alternate with compazine). 20 tablet 04/18/2023 prochlorperazine (Compazine) 10 mg tabletIndications:Drug-i nduced nausea and vomiting Take 1 tablet by [...] Take 500 mg by mouth as needed. documented as of this encounter Progress Notes * Cheli Oglesby RN - 11/04/2023 11:27 AM EDT [facility] NUR[facility] DATABASE Name: Blanca Lujan Date of : 1955 AGE: 68 y.o. Address: [address] [address] Phone: [phone] (home) Mobile: Telephone Information: Referring Provider: Derek Lindquist REASON FOR VISIT: Order Questions Answers Where will study be performed? [facility] Radiology [120] To be scheduled Ordering department to coordinate scheduling Reason for exam and clinical history: colon cancer. Has completed chemotherapy, no longer needs mediport Exam/Procedure requested: Mediport removal What labs need to be collected during imaging study? none Is the patient on anticoagulant / antiplatelet therapy ? No Planned procedure: Chest port removal Labs to be performed day of procedure: No labs Sedation: No Sedation Prophylactic antibiotic : None Contrast: No contrast Additional medications for procedure: Lidocaine Position: Supine Consent: Pending Medications to discontinue (and days held): None Case Urgency:: G1-Elective Outpatient intervention within 4-7 days Allergies Allergen Reactions Bactrim [Sulfamethoxazole-Trimethoprim] Hives Keflex [Cephalexin] Hives Pertinent PMH: Patient Active Problem List Diagnosis Code Abnormal [...] Wound infection T14.8XXA, L08.9 Wound dehiscence T81.30XA History of partial colectomy Z90.49 Date/Procedure Meds Given/Comments 04/14/23 Mediport Placement Fentanyl 75 mg IV, Versed 1.5 mcg IV 11/04/23 Mediport removal Local 1115 to procedure room 6 via stretcher. On stretcher supine. All monitors, O2, safety strap in place. Meds per protocol. Laboratory Results: Lab Results Component Value Date CREATININE 0.62 (L) 10/11/2023 Lab Results Component Value Date K 4.6 10/11/2023 Lab Results Component Value Date PLATELET 450 (H) 10/11/2023 documented in this encounter Plan of Treatment Upcoming Encounters Date Type Department Care Team (Late st Contact Info) Description 01/28/2024 10:30 AM EDT Office Visit Hematology/Oncolog y at [address] [phone] Derek Lindquist MD [facility] [place] [address] Ann Tello APRN [address] [place] [address] DR [place] [address] 03/24/2024 1:00 PM EDT Hospital En[place] [phone] Shilo Lopez MD [facility] [place] [address] 03/24/2024 1:00 PM EDT - 03/24/2024 1:45 PM EDT [place] [phone] Shilo Lopez MD [facility] [place] [address] COLONOSCOPY, DIAGNOSTIC (WRVU 3.26) Scheduled Procedures Name Priority Associated Diagnoses Date/Ti wi COLONOSCOPY, DIAGNOSTIC (WRVU 3.26) Procedure: Colonoscopy Indication: [...] 1 1:57 AM EDT Adenocarcinoma of appendix documented in this encounter Results * IR Mediport Removal (11/04/2023 11:57 AM EDT) Anatomical Region Laterality Modality X-Ray Angiograph y Narrative 11/04/2023 12:57 PM EDT Interventional Radiology Procedure Note Procedure: Subcutaneous venous port explant Indication: Colon cancer, discontinue prison central venous access for chemotherapy Pre-procedure: Informed [...] 11/04/2023 Derek Lindquist MD IMG IR ORDERABLES documented in this encounter Visit Diagnoses 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 documented in this encounter Administered Medications Inactive Administered Medications - up to 3 most recent administrations Medication Order MAR Action Action Date Dose Rate Site lidocaine (Xylocaine) 1% (10 mg/mL) injection 10 mg 10 mg, Subcutaneous, ONCE, 1 dose, On Jaelyn 11/04/23 at 1100, For use in Interventional Radiology (IR) only for procedure with direct provider supervision and verbal order., Angio/IR (Intra-Procedure), Routine Given 11/04/2023 11:35 AM EDT 10 mg lidocaine-EPINEPHrine (1% - 1:100,000) injection 20 mL 20 mL, Intradermal, ONCE, 1 dose, On Jaelyn 11/04/23 at 1100, For use in Interventional Radiology (IR) only for procedure with direct provider supervision and verbal order. *This order is NOT a Venous Ablation Order / Dose., Angio/IR (Intra-Procedure), Routine Given 11/04/2023 11:37 AM EDT 20 mLs documented in this encounter Care Teams Mechanical Facilities Technician Relationship Specialty Start Date End Date Hina Johnson [address] [place] [address] PCP - General Family Medicine 06/25/23 documented as of this encounter
--- OUTSIDE RECORDS SUMMARY | 2024-01-26 03:07 | XMS_ITS | Encounter Summary ---
Author Organization [facility] Address [facility] [place] [address] Care Team Providers Care Bench Jeweler Name Role Phone EloisaAlvaro Hina Primary Care Provider +1 [phone] Encounter Details Date Type Department Care Team (Late st Contact Info) Description 10/07/2023 Orders Only General Surgery at [facility] [place] [address] Kamila Gomez PA [facility] [place] [address] Adenocarcinoma, appendix Social History Tobacco Use Types Packs/Day Years Used Date Smoking Tobacco: Former Cigarettes Smokeless Tobacco: Never Alcohol Use Standard Drinks/Week Comments Yes 0 (1 standard drink = 0.6 oz pur e alcohol) few times yearly [facility] Utilities Answer Date Recorded In the past [...] in a mcc (including now)? No 09/29/2023 IPV Inpatient Questions [...] AM EDT Office Visit Hematology/Oncolog y at [address] [address] Derek Lindquist MD [facility] [place] [address] Ann Tello APRN [address] [place] [address] DR [place] [address] 03/24/2024 1:00 PM EDT Hospital Encounter [place] [address] Shilo Lopez MD [facility] [place] [address] 03/24/2024 1:00 PM EDT - 03/24/2024 1:45 PM EDT [place] [phone] Shilo Lopez MD [facility] [place] [address] COLONOSCOPY, DIAGNOSTIC (WRVU 3.26) Scheduled Orders Name Type Priority Associated Diagnoses Orde r Schedule CBC (with Diff) Lab Routine Adenocarcinoma, appendix Expected: 10/11/2023, Expires: 10/06/2024 Comprehensive metabolic panel (non-fasting) Lab Routine Adenocarcinoma, appendix Expected: 10/11/2023 (Approximate), Expires: 10/06/2024 CRP, acute inflammation Lab Routine Adenocarcinoma, appendix Expected: 10/11/2023 (Approximate), Expires: 10/06/2024 Scheduled Procedures Name Priority Associated Diagnoses Date/Ti me COLONOSCOPY, DIAGNOSTIC (WRVU 3.26) Procedure: Colonoscopy Indication: Malignant neoplasm of colon, unspecified part of colon and History of partial colectomy Sedation: IVCS Timeframe: within 2 weeks Specific provider: first available OV needed: No Anticoagulation status: no documented anticoagulation use 03/24/2024 1:00 PM EDT documented as of this encounter Visit Diagnoses Diagnosis Adenocarcinoma, appendix Malignant neoplasm of appendix vermiformis documented in this encounter Care Teams Bench Jeweler Relationship Specialty Start Date End Date Hina Johnson [address] [place] [address] PCP - General Family Medicine 06/25/23 documented as of this encounter
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
--- OUTSIDE RECORDS SUMMARY | 2024-01-26 03:07 | XMS_ITS | Encounter Summary ---
Author Organization [facility] [place] [address] Care Team Providers Care Manufacturing Applications Engineer Name Role Phone SharicathydahliaHina Kay Primary Care Provider [phone] Reason for Referral * Consultation (Routine) - Pending Review Specialty Diagnoses / Procedures Referred By Contac t Referred To Contact Wound Care Diagnoses Malignant neoplasm of overlapping sites of colon Adenocarcinoma, appendix Wound dehiscence S/P right colectomy Kamila Gomez PA [facility] [place] [address] Monique Rock, [address] MOTTA [address] [place] [id number] Referral ID Status Reason Start Date Expiration Date Visits Requested Visits Authorized [id number] Pending Review Consult, Test & Treat 10/11/2023 04/08/2024 1 1 Reason for Visit * Reason Comments Follow-up Encounter Details Date Type Department Care Team (Late st Contact Info) Description 10/11/2023 12:00 PM EDT Office [place] [address] Ema Garcia MD [facility] [place] [address] Malignant neoplasm of overlapping sites of colon; Adenocarcinoma, appendix; Wound dehiscence; S/P right colectomy Social History Tobacco Use Types Packs/Day Years Used Date Smoking Tobacco: Former Cigarettes Smokeless Tobacco: Never Alcohol Use Standard Drinks/Week Comments Not Currently 0 (1 standard drink = 0.6 oz pur e alcohol) few times yearly [facility] Utilities Answer Date Recorded In [...] place to sleep or slept in a care home (including now)? No 09/29/2023 DH IPV Inpatient [...] Sign Reading Time Taken Comments Blood Pressure 137/73 10/11/2023 12:12 PM EDT Pulse 94 10/11/2023 12:12 PM EDT Temperature - - Respiratory Rate - - Oxygen Saturation 98% 10/11/2023 12:12 PM EDT Inhaled Oxygen Concentration - - Weight 85.7 kg (189 lb) 10/11/2023 12:12 PM EDT Height - - Body Mass Index 35.71 10/09/2023 10:53 AM EDT documented in this encounter Progress Notes * Ema Garcia MD - 10/11/2023 12:00 PM EDT Colorectal Surgery Follow-Up Visit ~ Division of Colon and Rectal Surgery ~ [facility] PCP:Hina Jain-Alvaro Colorectal surgery [facility] Dr. Lindquist HPI: Blanca Lujan 67 y.o. seen in [...] hemicolectomy - ileocolic, right colic (if present) Postsurgically patient had ileus for a few days in the hospital. She is eventually resolved and wasdischarged to home. Patient was seen in follow-up in [facility] ER for episode of cellulitis. Patient was given Augmentin and a culture was taken. Culture showed evidence of E. coli resistant and patient was seen back in the [facility] ER for CT scan. Patient went CT scan and 24-hour admission with opening of the superior portion of the lap assisted midline wound. Patient underwent packing and was discharged the following day. Wound management has been done at home with family. Overall patient is feeling significantly better. Patient was transitioned to doxycycline due to sensitivities of E. coli. Patientpresents today doing well postsurgically. 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 02/25/2023 10:25 AM COREFO Responses Incontinence Scale [...] 04/14/2023 IR Mediport Placement 04/14/2023 David Bower, DO [facility] INTERVENTIONL RAD PRO COLONOSCOPY, BIOPSY N/A 03/16/2023 COLONOSCOPY FLEXIBLE, WITH BX (WRVU 3.56) performed by Shilo Lopez MD at [facility] ENDOSCOPY PRO CYSTOSCOPY, INSERT URETERAL STENT Right 09/28/2023 CYSTO, STENT PLACEMENT INTRAOP, TEMPORARY (WRVU 2.82) performed by Shon Lewis MD at [facility] MAIN OR PRO LAP, SURG, COLECTOMY, W/REMVL TERM ILEUM N/A 09/28/2023 @LAPAROSCOPIC ASSISTED COLECTOMY, PARTIAL, REM.TERMINAL ILEUM (WRVU 22.95) performed by Ema Garcia MD at [facility] MAIN OR PRO UNLISTED LAPAROSCOPIC PROC ABD PERITONEUM & OMENTUM N/A 09/28/2023 LAPAROSCOPIC PARTIAL OMENTECTOMY (WRVU 15.67) performed by Ema Garcia MD at [facility] MAIN OR PRO UNLISTED PX RECTUM N/A 03/16/2023 LOWER EUS- ENDOSCOPIC ULTRASOUND (WRVU 7.56) performed by Shilo Lopez MD at [facility] ENDOSCOPY PRO UPGI ENDOSCOPY W/US FN BX 03/16/2023 EGD, W US GUIDED FINE NEEDLE ASPIRATION/BIOPSY (WRVU 4.16) performed by Shilo Lopez MD at [facility] ENDOSCOPY BP 137/73 (BP Location (NBP): Right arm, Patient Position: Sitting, BP Cuff Sizes: Adult (25-34 cm)) Pulse 94 Wt 85.7 kg (189 lb) SpO2 98% BMI 35.71 kg/m?? Body mass index is 35.71 kg/m??. General Appearance: well developed and well [...] non-tender, and not distended, no masses or organomegaly, no evidence of cellulitis superior portion approximately 2 cm x 1 cm opening of wound with some fibrin present no evidence of infection Ext: no cyanosis Anorectal Exam : Deferred Assessment:Blanca Lujan 67 y.o. seen in colorectal surgical follow-up for recent post staged operative superficial wound infection in the setting of recent laparoscopic right colectomy 09/28/2023 for stage IV colon cancer. Patient's wound approximately 2 cm x 1 cm appears healthy no evidence of c ellulitis. Patient is taking doxycycline due to resistant E. coli. Patient and family are changing the dressing daily. Patient will be seen at [facility] in follow- up for wound management. Pathology is still pending from original resection. Patient did very acquire adjuvant chemotherapy.At this time unclear whether patient will get postoperative chemotherapy. Patient will be presentedat tumor conference once her pathology is back. Follow-up will be with Dr. Lindquist. Plan: Postsurgical follow-up with wound center and Dr. Garcia Evaluate pathology to discuss surveillance strategy and whether or not patient will have any additional adjuvant treatment Ema Garcia MD, MS, FACS, FASCRS Chief, Division of Colon and Rectal Surgery [facility] Pager [phone] 10/14/2023 2:08 PM documented in this encounter Plan of Treatment Upcoming Encounters Date Type Department Care Team (Late st Contact Info) Description 01/28/2024 10:30 AM EDT Office Visit Hematology/Oncolog y at [address] [phone] Derek Lindquist MD [facility] [place] [address] Ann Tello APRN [address] [place] [address] [place] [address] 03/24/2024 1:00 PM EDT Hospital Encounter [place] [address] Shilo Lopez MD [facility] DR [place] [address] 03/24/2024 1:00 PM EDT - 03/24/2024 1:45 PM EDT Surgery [place] [address] Shilo Lopez MD [facility] [place] [address] COLONOSCOPY, DIAGNOSTIC (WRVU 3.26) Scheduled Procedures Name Priority Associated Diagnoses Date/Ti me COLONOSCOPY, DIAGNOSTIC (WRVU 3.26) Procedure: Colonoscopy Indication: Malignant neoplasm of colon, unspecified part of colon and History of partial colectomy Sedation: IVCS Timeframe: within 2 weeks Specific provider: first available OV needed: No Anticoagulation status: no documented anticoagulation use 03/24/2024 1:00 PM EDT Scheduled Referrals Name Type Priority Associated Diagnoses Orde r Schedule Referral to Wound Clinic Outpatient Referral Routine Malignant neoplasm of overlapping sites of colon Adenocarcinoma, appendix Wound dehiscence S/P right colectomy Ordered: 10/11/2023 documented as of this encounter Visit Diagnoses Diagnosis Malignant neoplasm of overlapping sites of colon Malignant neoplasm of other specified sites of large intestine Adenocarcinoma, appendix Malignant neoplasm of appendix vermiformis Wound dehiscence Disruption of external operation (surgical) wound S/P right colectomy Other postprocedural status documented in this encounter Care Teams Manufacturing Applications Engineer Relationship Specialty Start Date End Date Hina Johnson [address] [place] [address] PCP - General Family Medicine 06/25/23 documented as of this encounter
--- OUTSIDE RECORDS SUMMARY | 2024-01-26 03:07 | XMS_ITS | Encounter Summary ---
Author Organization [facility] [place] [address] Care Team Providers Care Sodium Methylate Operator Name Role Phone CristobalEliza Hina Primary Care Provider [phone] Encounter Details Date Type Department Care Team (Latest Contact Info) Description 10/11/2023 11:00 AM EDT Laboratory Appointment Lab 3L [facility] [place] [phone] 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; Adenocarcinoma, appendix Social History Tobacco Use Types Packs/Day Years Used Date Smoking Tobacco: Former Cigarettes Smokeless Tobacco: Never Alcohol Use Standard Drinks/Week Comments Not Currently 0 (1 standard drink = 0.6 oz pur e alcohol) few times yearly [facility] Utilities Answer Date Recorded In [...] place to sleep or slept in a longterm (including now)? No 09/29/2023 IPV Inpatient Questions [...] AM EDT Office Visit Hematology/Oncolog y at [address] [phone] Derek Lindquist MD [facility] [place] [address] Ann Tello APRN [address] [place] [address] [place] [address] 03/24/2024 1:00 PM EDT Hospital En[place] [phone] Shilo Lopez MD [facility] [place] [address] 03/24/2024 1:00 PM EDT - 03/24/2024 1:45 PM EDT [place] [phone] Shilo Lopez MD [facility] [place] [address] COLONOSCOPY, DIAGNOSTIC (WRVU 3.26) Scheduled Procedures Name Priority Associated Diagnoses Date/Ti az COLONOSCOPY, DIAGNOSTIC (WRVU 3.26) Procedure: Colonoscopy Indication: Malignant neoplasm of colon, unspecified part of colon and History of partial colectomy Sedation: IVCS Timeframe: within 2 weeks Specific provider: first available OV needed: No Anticoagulation status: no documented anticoagulation use 03/24/2024 1:00 PM EDT documented as of this encounter Procedures Procedure Name Priority Date/Time Associated Diagnosis Comments CRP, ACUTE INFLAMMATION Routine 10/11/2023 11:34 AM EDT Adenocarcinoma, appendix HEMOGRAM Routine 10/11/2023 11:34 AM EDT Adenocarcinoma, appendix DIFFERENTIAL, AUTOMATED Routine 10/11/2023 11:34 AM EDT Adenocarcinoma, appendix CBC (WITH DIFF) Routine 10/11/2023 11:34 AM EDT Adenocarcinoma, appendix COMPREHENSIVE METABOLIC PANEL Routine 10/11/2023 11:34 AM EDT Adenocarcinoma, appendix documented in this encounter Results * (ABNORMAL) Differential, Automated (10/11/2023 11:34 AM EDT) Neutrophil % 66.5 % [facility] Neutrophil Absolute 6.50(H) 1.70 - 6.10 x10(3)/mc L [facility] Lymph % 20.5 % [facility] Lymphocytes Abs 2.0 0.9 - 3.2 x10(3)/mc L [facility] Monocyte % 8.5 % [facility] Monocyte Abs 0.8 0.3 - 0.9 x10(3)/mc L [facility] Eos % 2.2 % [facility] Eosinophils Abs 0.2 0.0 - 0.4 x10(3)/mc L [facility] Basophil % 0.5 % [facility] Baso Absolute 0.0 0.0 - 0.1 x10(3)/mc L [facility] Immature Gran % 1.80 % [facility] Comment: Immature granulocytes(IG's)percentage and absolute count will include metamyelocytes, myelocytes, and promyelocytes. Blood smears from CBCs yielding IG's will be scanned manually for concordance. If this scan disagrees with the automated IG or if promyelocytes are noted, a manual differential will be performed. Immature Gran Absolute 0.18(H) 0.00 - 0.04 x10(3)/[facility] Blood 10/11/2023 11:3 4 AM EDT 10/11/2023 11:43 AM EDT Narrative Resulting Agency Comment Spec In Lab Ema Garcia MD HEMATOLOGY ORDERABLE S [facility] [place] [address] * (ABNORMAL) Hemogram (10/11/2023 11:34 AM EDT) White Blood Cell 9.8(H) 4.0 - 9.5 x10(3)/[facility] Red Blood Cell 3.99(L) 4.00 - 5.21 x10(6)/ L [facility] Hemoglobin 12.1 11.7 - 15.5 g/dL [facility] Hematocrit 36.5 35.7 - 45.8 % [facility] Mean Cell Volume 91.5 82.6 - 94.4 fL [facility] Mean Cell Hemoglobin 30.3 27.1 - 32.0 pg [facility] Mean Cell Hemoglobin Concentration 33.2 31.7 - 35.0 g/dL [facility] Platelet 450(H) 145 - 357 x10(3)/ L [facility] RDW Standard Deviation 39.9 37.0 - 46.0 fL [facility] RDW coefficient of variation 11.9 11.5 - 14.1 % [facility] Mean Platelet Volume 8.9 7.6 - 12.9 fL [facility] NRBC% auto 0.0 % [facility] NRBC Absolute 0.000 0.000 - 0.000 x10(3)/mc L [facility] Blood 10/11/2023 11:3 4 AM EDT 10/11/2023 11:43 AM EDT Narrative Resulting Agency Comment Spec In Lab Ema Garcia MD HEMATOLOGY ORDERABLE S [facility] [place] [address] * (ABNORMAL) Comprehensive metabolic panel (non-fasting) (10/11/2023 11:34 AM EDT) Glucose 118 65 - 199 mg/dL [facility] Comment:Diabetes: >=200 mg/d L plus symptoms Blood Urea Nitrogen 16 8 - 18 mg/dL [facility] Creatinine 0.62(L) 0.70 - 1.20 mg/dL [facility] Sodium 142 135 - 145 mmol/L [facility] Potassium 4.6 3.5 - 5.0 mmol/L [facility] Comment: Please note: ??Patients with WBC >100,000 may have falsely elevated Potassium levels. ??For accurate Potassium quantification in these patients send serum separator tube (gold top) for subsequent determinations. ??Contact the Clinical Chemistry Laboratory if there are any questions. Chloride 103 98 - 107 mmol/L [facility] Carbon Dioxide 26 22 - 31 mmol/L [facility] Anion Gap 13 5 - 15 mmol/L [facility] Calcium 9.8 8.5 - 10.5 mg/dL [facility] Protein, Total 7.1 6.1 - 8.0 g/dL [facility] Albumin 4.0 3.2 - 5.2 g/dL [facility] Aspartate Aminotransferase 17 0 - 30 unit/L [facility] Alanine Aminotransferase 23 0 - 30 unit/L [facility] Alkaline Phosphatase 81 35 - 105 unit/L [facility] Bilirubin, Total <0.2(L) 0.2 - 1.3 mg/dL [facility] Est Glomerular Filtration Rate 99 >=60 mL/min/1. 73 m?? [facility] Comment: This patient's estimated [...] In Lab Ema Garcia MD CHEMISTRY ORDERABLES [facility] [place] [address] * (ABNORMAL) CRP, acute inflammation (10/11/2023 11:34 AM EDT) C-Reactive Protein 45.0(H) <=4.9 mg/L [facility] Blood 10/11/2023 11:3 4 AM EDT 10/11/2023 11:43 AM EDT Narrative Resulting Agency Comment Spec In Lab Ema Garcia MD CHEMISTRY ORDERABLES [facility] [place] [address] documented in this encounter Visit Diagnoses Diagnosis 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 Encounter for long-term (current) use of other medications Adenocarcinoma, appendix Malignant neoplasm of appendix vermiformis documented in this encounter Care Teams Sodium Methylate Operator Relationship Specialty Start Date End Date Hina Johnson: [phone] [address] [place] [address] PCP - General Family Medicine 06/25/23 documented as of this encounter
--- OUTSIDE RECORDS SUMMARY | 2024-01-26 03:07 | XMS_ITS | Encounter Summary ---
Author Organization [facility] [place] [address] Care Team Providers Care Speech Language Pathology Assistant Name Role Phone SharicathydahliaHina Kay Primary Care Provider [phone] Encounter Details Date Type Department Care Team (Latest Contact Info) Description 11/01/2023 Travel Social History Tobacco Use Types Packs/Day Years Used Date Smoking Tobacco: Former Cigarettes Smokeless Tobacco: Never Alcohol Use Standard Drinks/Week Comments Not Currently 0 (1 standard drink = 0.6 oz pur e alcohol) few times yearly [facility] Utilities Answer Date Recorded In the [...] in a correction (including now)? No 09/29/2023 IPV Inpatient Questions [...] AM EDT Office Visit Hematology/Oncolog y at [address] [phone] Derek Lindquist MD [facility] [place] [address] Ann Tello APRN [address] [place] [address] DR [place] [address] 03/24/2024 1:00 PM EDT Hospital Encounter [place] [phone] Shilo Lopez MD [facility] [place] [address] 03/24/2024 1:00 PM EDT - 03/24/2024 1:45 PM EDT [place] [phone] Shilo Lopez MD [facility] [place] [address] COLONOSCOPY, DIAGNOSTIC (WRVU 3.26) Scheduled Procedures Name [...] on filedocumented in this encounter Care Teams Speech Language Pathology Assistant Relationship Specialty Start Date End Date Hina Johnson [address] [place] [address] PCP - General Family Medicine 06/25/23 documented as of this encounter
--- OUTSIDE RECORDS SUMMARY | 2024-01-26 03:08 | XMS_ITS | Encounter Summary ---
Author Organization [facility] Address [facility] [place] [address] Care Team Providers Care Check Totaler Name Role Phone EloisaAlvaro Hina Primary Care Provider [phone] Reason for Visit * Reason Comments Chemotherapy C8d1 Folfox * Treatment/Therapy Plan Authorization (Routine) - Pending Review Specialty Diagnoses / Procedures Referred By Contac t Referred To Contact Hematology and Oncology Diagnoses Adenocarcinoma, appendix Procedures TC PALONOSETRON HCL, 25MCG, INJECTION (ALOXI) TC OXALIPLATIN, 0.5MG, INJECTION (ELOXATIN) TC LEUCOVORIN CALCIUM, 50MG, INJECTION (WELLCOVORIN) TC FLOUROURACIL, 500MG FOLFOX J2469 ALOXI J0640 LEUCOVORIN J9263 OXALIPLATIN J9190 ADRUCIL Derek Lindquist MD [address] [place] [address] [place] [address] Derek Lindquist MD [address] [place] [address] [place] [address] Referral ID Status Reason Start Date Expiration Date V isits Requested Visits Authorized [id number] Pending Review 04/07/2023 04/06/2024 1 101 Encounter Details Date Type Department Care Team (Late st Contact Info) Description 08/06/2023 11:00 AM EST Infusion Hematology Oncology at [address] [phone] Adenocarcinoma, appendix Social History Tobacco Use Types Packs/Day Years Used Date Smoking Tobacco: Former Cigarettes Smokeless Tobacco: Never Alcohol Use Standard Drinks/Week Comments Yes 0 (1 standard drink = 0.6 oz pur e alcohol) few times yearly Sex and Gender Information Value Date Recorded Sex Assigned at Not on file Gender Identity Not on file Sexual Orientation Not on file documented as of this encounter Progress Notes * Fariba Olivares RN - 08/06/2023 11:00 AM EST INFUSION THERAPY ADMINISTRATION NOTES DIAGNOSIS: GI Colorectal CA CYCLE #: Day 1 Cycle 8 REASON FOR VISIT: FOLFOX infusion and initiation of continunous home 5FU infusion via CADD pump provided by [employer] SUBJECTIVE Blanca offers no complaints. OBJECTIVE LAB DATA: Labs reviewed and found adequate for treatment. Pre administration: Chemotherapy orders independently verified for drug name, route, and dosage per patient's height, weight and BSA by Fariba Olivares RN and staff pharmacists. At time of administration Patient identity verified using patient's name and date of at the chair/bedside by double RN check just prior to initiating the patient's home infusion chemotherapy via CADD pump provided by [employer]. Fluorouracil 4680 mg over 46 hours, IV via CADD pump. Amount infused verified by double RNcheck after 15 minutes and appropriate amount had infused. REACTIONS (DESCRIPTION, TIME, INTERVENTION AND EFFECTIVENESS) none ASSESSMENT Blanca was awake, alert and tolerated treatment well. Disconnect kit provided for Wednesday by daughter. Pulsatile method teaching reinforced. PLAN Return to clinic as scheduled. documented in this encounter Plan of Treatment Upcoming Encounters Date Type Department Care Team (Late st Contact Info) Description 01/28/2024 10:30 AM EDT Office Visit Hematology/Oncolog y at [address] [phone] Derek Lindquist MD [facility] [place] [address] Ann Tello APRN [address] [place] [address] [place] [address] 03/24/2024 1:00 PM EDT Hospital Encounter [place] [address] Shilo Lopez MD [facility] [place] [address] 03/24/2024 1:00 PM EDT - 03/24/2024 1:45 PM EDT Surgery [place] [address] Shilo Lopez MD [facility] [address] COLONOSCOPY, DIAGNOSTIC (WRVU 3.26) Scheduled Procedures Name [...] MAR Action Action Date Dose Rate Site dexAMETHasone (Decadron) tablet 10 mg 10 mg, Oral, ONCE, 1 dose, On Wed08/06/23 at 1145, Administer prior to chemotherapy, Routine Given 08/06/2023 11:32 AM EST 10 mg fluorouraciL (ADRUCIL) chemo injection 780 mg 780 mg (400 mg/m2/dose ? 1.95 m2 Treatment Plan BSA from Recorded weight), Intravenous, ONCE, 1 dose, On Wed08/06/23 at 1245, Administer over 5 Minutes, Warning Vesicant/Irritant Medication Given 08/06/2023 2:04 PM EST 780 mg 187.2 mL/hr fluorouraciL (AdruciL) in sodium chloride 0.9% 138 mL infusion (46 Hour - For Home Use) 4,680 mg 4,680 mg (2,400 mg/m2/dose ? 1.95 m2 Treatment Plan BSA from Recorded weight), Intravenous, ONCE, 1 dose, On Wed08/06/23 at 1415, Administer over 46 Hours, Warning Vesicant/Irritant Medication To be infused via an ambulatory infusion CADD Sanchez pump continuously IV at 3 mL/hr for 46 hours. Pump contains a 46 hour supply and provides a daily dose of 1,200 mg/m2/day = 2,400 mg/m2 IV over 46 hours. Given 08/06/2023 2:14 PM EST 4,680 mg 3 mL/hr leucovorin (Wellcovorin) 350 mg in dextrose 5% 85 mL infusion 350 mg, Intravenous, ONCE, 1 dose, On Wed08/06/23 at 1245, Administer over 85 Minutes, May Y-site with OXALIplatin Do not administer at a rate faster than 160 milligrams/minute. New Bag 08/06/2023 12:15 PM EST 350 mg 60 mL/hr OXALIplatin (Eloxatin) 150 mg in dextrose 5% 280 mL infusion 150 mg, Intravenous, ONCE, 1 dose, On Wed08/06/23 at 1245, Administer over 85 Minutes, Dose Ordered = 166 mg (85 mg/m2). Pharmacist rounded dose per procedure. Compatible with dextrose-containing solution only. Warning Vesicant/Irritant Medication New Bag 08/06/2023 12:15 PM EST 150 mg 197.6 mL/hr palonosetron (Aloxi) (0.05 mg/mL) injection 0.25 mg 0.25 mg, Intravenous, ONCE, 1 dose, On Wed08/06/23 at 1145, Administer over 30 seconds. Administer prior to chemotherapy, Routine Given 08/06/2023 11:35 AM EST 0.25 mg documented in this encounter Care Teams Check Totaler Relationship Specialty Start Date End Date Hina Johnson [address] [place] [address] PCP - General Family Medicine 06/25/23 documented as of this encounter
--- OUTSIDE RECORDS SUMMARY | 2024-01-26 03:08 | XMS_ITS | Encounter Summary ---
Author Organization [facility] Address [facility] [place] [address] Care Team Providers Care Laminating Machine Feeder Name Role Phone CristobalHina Kay Primary Care Provider Encounter Details Date Type Department Care Team (Late st Contact Info) Description 09/28/2023 Interpretation Only Radiology [address] [facility] [place] [phone] Unknown None Social History Tobacco Use Types Packs/Day Years Used Date Smoking Tobacco: Former Cigarettes Smokeless Tobacco: Never Alcohol Use Standard Drinks/Week Comments Yes 0 (1 standard drink = 0.6 oz pur e alcohol) few times yearly [facility] Utilities Answer Date Recorded In the [...] place to sleep or slept in a fdc (including now)? No 09/29/2023 IPV Inpatient Questions Answer Date Recorded Does Anyone Try to Keep You From Having Contact with Others or Doing Things Outside Your Home? no 09/29/2023 Feels Threatened by Someone no 09/12 Feels Unsafe at Home or Work/School no 09/29/2023 Physical Signs of Abuse Present no 09/29/2023 Sex and Gender Information Value Date Recorded Sex Assigned at Not on file Gender Identity Not on file Sexual Orientation Not on file documented as of this encounter Plan of Treatment Upcoming Encounters Date Type Department Care Team (Late st Contact Info) Description 01/28/2024 10:30 AM EDT Office Visit Hematology/Oncolog y at [address] [phone] Derek Lindquist MD [facility] [place] [address] Ann Tello APRN [address] [place] [address] [place] [address] 03/24/2024 1:00 PM EDT Hospital Encounter [place] [phone] Shilo Lopez MD [facility] [place] [address] 03/24/2024 1:00 PM EDT - 03/24/2024 1:45 PM EDT [place] [phone] Shilo Lopez MD [facility] [place] [address] COLONOSCOPY, DIAGNOSTIC (WRVU 3.26) Scheduled Procedures Name [...] Procedure Name Priority Date/Time Associated Diagnosis Comments DH OR ENDOSCOPY Routine 09/28/2023 documented in this encounter Results * DH OR Endoscopy (09/28/2023) Anatomical Region Laterality Modality Other 09/28/2023 Narrative 09/28/2023 12:00 AM EDT Photographs - Images Procedure Note Unknown - 09/29/2023 Photographs - Images Unknown EA IMAGES documented in this encounter Visit Diagnoses Not on filedocumented in this encounter Care Teams Laminating Machine Feeder Relationship Specialty Start Date End Date Hina Johnson [address] [place] [address] PCP - General Family Medicine 06/25/23 documented as of this encounter
--- OUTSIDE RECORDS SUMMARY | 2024-01-26 03:08 | XMS_ITS | Encounter Summary ---
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 Name Role Phone CristobalEliza Hina Primary Care Provider [phone] Reason for Visit * Auth/Cert (Routine) Specialty Diagnoses / Procedures Referred By Macy t Referred To Contact Diagnoses appendicitis Procedures PRO LAP, SURG, COLECTOMY, W/REMVL TERM ILEUM PRO LAP, APPENDECTOMY PRO CYSTOSCOPY, INSERT URETERAL STENT @LAPAROSCOPIC ASSISTED COLECTOMY, PARTIAL, REM.TERMINAL ILEUM (WRVU 22.95) LAPAROSCOPIC APPENDECTOMY (WRVU 9.45) CYSTO, STENT PLACEMENT INTRAOP, TEMPORARY (WRVU 2.82) Ariana Garcia MD [facility] [place] [address] [facility] Referral ID Status Reason Start Date Expiration Date Visits Re quested Visits Authorized [id number] 1 1 Encounter Details Date Type Department Care Team (Latest Contact Info) Description 09/28/2023 12:11 PM EDT - 10/04/2023 11:49 AM EDT Hospital Encounter Surgical Unit Level 4 [place] [id number] Ariana Garcia MD [facility] [place] [address] Tachycardia; S/P laparoscopy; Malignant neoplasm of ascending colon Discharge Disposition: Home Social History Tobacco Use Types Packs/Day Years Used Date Smoking Tobacco: Former Cigarettes Smokeless Tobacco: Never Alcohol Use Standard Drinks/Week Comments Yes 0 (1 standard drink = 0.6 oz pur e alcohol) few times yearly [facility] Utilities Answer Date Recorded In the past [...] place to sleep or slept in a skilled nursing (including now)? No 09/29/2023 DH IPV Inpatient [...] Sign Reading Time Taken Comments Blood Pressure 157/91 10/04/2023 8:30 AM EDT Pulse 88 10/03/2023 4:27 AM EDT Temperature 36.7 ??C (98.1 ??F) 10/04/2023 8:30 AM ED T Respiratory Rate 19 10/04/2023 8:30 AM EDT Oxygen Saturation 96% 10/04/2023 5:12 AM EDT Inhaled Oxygen Concentration - - Weight 86.5 kg (190 lb 11.2 oz) 10/04/2023 6:00 AM EDT Height 154.9 cm (5' 1) 09/28/2023 1:34 PM EDT Body Mass Index 36.03 09/28/2023 1:34 PM EDT documented in this encounter Discharge Summaries * Edilia Stevens PA - 10/04/2023 8:13 AM EDT Images from the original note were not included. Colorectal Surgery Discharge Summary Patient Name: Blanca Lujan Patient Age: 67 y.o. Birthdate: 1955 Admit date: 09/28/2023 Discharge date: 10/04/23 Attending Physician: ARIANA GARCIA Primary Diagnosis: Admitting Diagnosis: appendicitis Colon cancer Now Status Post: Procedure(s): @LAPAROSCOPIC ASSISTED COLECTOMY, PARTIAL, REM.TERMINAL ILEUM (WRVU 22.95) CYSTO, STENT PLACEMENT INTRAOP, TEMPORARY (WRVU 2.82) LAPAROSCOPIC PARTIAL OMENTECTOMY (WRVU 15.67) Date of surgery: 09/28/2023 Discharge Diagnoses (Hospital Problems): Active Hospital Problems Diagnosis Colon cancer S/P laparoscopy Laparoscopic right hemicolectomy with primary anastomosis; Dr. Ariana Garcia Resolved Hospital Problems Diagnosis Date Resolved Tachycardia 10/04/2023 Secondary Diagnoses (Chronic Problems): Active Non-Hospital Problems Diagnosis Adenocarcinoma, appendix Abnormal CT scan, gastrointestinal tract Malignant neoplasm of overlapping sites of colon Colonic mass Elevated carcinoembryonic antigen (CEA) Bruxism Depressive disorder Elevated blood-pressure reading without diagnosis of hypertension Lack of energy ZARA (obstructive sleep apnea) Posttraumatic stress disorder Snoring Vitamin D deficiency Operations/Major Procedures: 09/28/2023 Surgeon(s) and Role: Panel 1: * Ariana Garcia MD - Primary * Monique Spivey MD - Resident - Assisting * Serjio Soriano MD - Resident - Assisting Panel 2: * Shon Lewis MD - Primary * Bennie Smith MD - Resident - Assisting Panel 1 @LAPAROSCOPIC ASSISTED COLECTOMY, PARTIAL, REM.TERMINAL ILEUM (WRVU 22.95): 69114 (CPT??) LAPAROSCOPIC PARTIAL OMENTECTOMY (WRVU 15.67): 85259 (CPT??) Panel 2 CYSTO, STENT PLACEMENT INTRAOP, TEMPORARY (WRVU 2.82): 12285 (CPT??) HPI: Blanca Lujan 67 y.o. seen in colorectal surgical follow-up for T4 N0 M1 colon cancer (associated with either the cecum, appendix versus ileum as primary origin) patient is now status post neoadjuvant treatment for locally advanced colon cancer with evidence of probable peritoneal metastasis. Case was discussed with [facility] and recommended for neoadjuvant treatment and resection prior to referral. Patient was originally seen in February 2023 with elevated CEA, elevated CRP and findings abnormalappendix with locally evidence of either mucin versus [...] received 8 cycles (the last given 08/06/23). From Dr. Ariana Garcia's note, 09/09/2023. The patient was offered laparoscopic ileal colonic colectomy with en bloc resection of surrounding tissues with primary anastomosis. Goals, risks, alternatives have been discussed, the patient has expressed understanding and has elected to proceed with operative intervention at this time. Hospital Course: Blanca Lujan is a 67 y.o. female who was admitted on 09/28/2023 for surgical management of appendicitis/colon cancer. Blanca Lujan was taken to the operating room where she underwent a hand assisted laparoscopic right hemicolectomy with primary anastomosis. She had a right ureteral stent placed at the beginning of the case which was removed at the end of the case. She tolerated the operation well and without complication. She was admitted post-operatively for clinical monitoring and further management. On the morning of 09/29/2023, she had minimal PO intake. She was slightly tachycardic, which was thought to be due in part to pain control and fluid losses in the OR. Her pain regimen was adjusted, and she received a 500cc bolus. Her Wells catheter was maintained for accurate fluid monitoring. Her diet was advanced to clear liquids. She remained tachycardic, so an EKG was obtained which showed sinus tachycardia. She had nausea which was relieved somewhat with a one-time dose of Ativan. On 09/30/2023, her Wells catheter was removed. She was nauseous and was not having bowel function. Ultimately she had an abdominal series that was negative for free air, but showed mild small bowel dilatation sung ggestive of postoperative ileus. An NG tube was placed with initial return of 200cc. She had hypertensive urgency with requirement of increased anti- hypertensives. On 10/01/2023, the patient had urinary retention requiring the re- placement of a Wells catheter. She began to have some bowel function, so on 10/02/2023, her NG tube was clamped. She passed the clamping trial, her NG tube was removed, and she was advanced to a clear liquid diet. On 10/03/2023, her Wells catheter was removed, and she passed a voiding trial. Her diet was advanced to low residue. Hypokalemia was treated with potassium repletion. On 10/04/2023, she was tolerating a low residue diet without nausea or vomiting, she was having bowel function, she was ambulating independently in the halls, her pain was controlled with PO Tylenol, she was voiding spontaneously. During her hospitalization, she required PRN antihypertensives due to hypertension and hypertensiveurgency. The hypertension improved as her bowel function returned and her pain decreased. She does not take antihypertensives in the outpatient setting. Plans were made for follow up with her PCP in 1 week to recheck her blood pressure and follow up her electrolytes. Lovenox teaching was provided as she will continue on anticoagulation with Lovenox therapy for a total of 28 days from date of surgery. The patient was deemed stable for discharge on 10/04/2023. Initiated on ERAS pathway: Yes Colon & Rectal Surgery Evidence-based* Discharge Criteria [x] adequate oral intake [x] adequate urine output [x] ambulating independently >4X day in hallway [x] effective peristalsis: consistently passing flatus and/or stool [x] no evidence of complications; educated about signs and symptoms of complications [x] pain controlled with oral meds: PO Tylenol only [] Tylenol alternating every three hours with Ibuprofen (with food) around the clock (assuming no contraindications to either). [] ex. Tylenol 12pm, Ibuprofen 3pm, Tylenol 6pm, Ibuprofen 9pm [] Tramadol, Dilaudid, or Oxycodone for breakthrough pain [x] follow-up appointment already scheduled -call Armida Reid [phone] for scheduling assistance -call the [facility] Surgery [facility] nurses [phone] for prior authorizations assistance Only if applicable [...] colorectal surgery: an international consensus using the [place] technique. Dis Colon Rectum. 2012 Apr;55(4):416-23. Vital Signs Last value Range last 24hrs Temperature Temp: 36.8 ??C (98.2 ??F) Temp: [36.6 ??C (97.9 ??F)-36.8 ??C (98.2 ??F)] Heart Rate Heart Rate: 88 Heart Rate: -- Blood Pressure BP: (!) 163/92 BP: (152-163)/(82-97) Respiratory Rate Resp: 16 Resp: [16-18] SpO2 SpO2: 96 % SpO2: [96 %-97 %] Pertinent Lab Data: No results for input(s): WBC, HGB, HCT, PLATELET, PT, INR, PTT in the last 72 hours. Recent Labs 10/04/23 0457 10/03/23 0154 10/02/23 0521 NA 140 137 138 K 3.4* 3.2* 3.1* CL 103 100 99 CO2 28 26 27 BUN 11 11 12 CREATININE 0.60* 0.59* 0.60* GLUCOSE 129 99 117 CALCIUM 8.6 8.4* 8.5 MAGNESIUM 0.78 0.87 0.86 Recent Labs 10/04/23 0457 10/03/23 0154 10/02/23 0521 CRP 81.3* 59.3* 79.7* Physical Exam: Body mass index is 36.03 kg/m??. General: NAD, resting comfortably, pleasant, conversant HEENT: PERRL Pulm: Breathing comfortably, no respiratory distress Abd: soft, mildly distended, appropriately tender to palpation, mild distention, incision sites clean, dry, and well approximated Skin: warm, dry Neuro: CN 2-12 grossly intact, nonfocal, moving all four extremities spontaneously Imaging: No new imaging Results for orders placed or performed during the hospital encounter of 09/28/23 XR Abdomen Acute Series w PA Chest (Exam End: 09/30/2023 6:14 PM) Result Value WORKSTATION ID [id number] Impression 1. No pneumoperitoneum. 2. Mild small bowel dilatation suggestive of postoperative ileus. Thank you for letting us participate in the care of this patient. If you are a health care provider and have any questions regarding this report, please contact the number below. For patients who have questions please contact the health personal care worker that requested your imaging first. Abdomen 1 view (Generic) (Exam End: 09/30/2023 8:42 PM) Result Value WORKSTATION ID [id number] Impression FINDINGS/IMPRESSION: The distal portion of a nasogastric tube projects over the left side of the spine, tip projecting over the region of the gastric antrum. Similar gaseous distention of small bowel. Thank you for letting us participate in the care of this patient. If you are a health care provider and have any questions regarding this report, please contact the number below. For patients who have questions please contact the health personal care worker that requested your imaging first. Condition at discharge: Stable Mental Status: awake and alert, oriented x 3 Medications: Your Medications New Medications Dose Details enoxaparin 40 mg/0.4 mL Syringe Commonly known as: Lovenox Inject 0.4 mLs subcutaneously nightly for 22 days. 40 mg Quantity: 8.8 mL Refills: 0 lidocaine 5% Adhesive Patch, Medicated Commonly known as: Lidoderm Apply 1 patch onto the skin daily. (leave on for 12 hours and remove for 12 hours) Refills: 0 Continued medications, unchanged Dose Details [...] mcg by mouth. 500 mcg Refills: 0 ibuprofen 800 mg tablet Commonly known as: Advil Take 800 mg by mouth as needed for Pain. 800 mg Refills: 0 magnesium 250 mg tablet Take [...] Quantity: 30 tablet Refills: 5 STOPPED Medications Acetylcysteine 600 mg capsule Commonly known as: NAC Disposition: home Allergies: Allergies Allergen Reactions Bactrim [Sulfamethoxazole-Trimethoprim] Hives Keflex [Cephalexin] Hives Outpatient Services/Studies: Basic Metabolic Panel (non-fasting) Standing Status: Future Standing Exp. Date: 12/04/23 Magnesium Standing Status: Future Standing Exp. Date: 12/04/23 Scheduled Appointments: Future Appointments and Orders Future Appointments and Orders Future Appointments Provider Department Dept Phone 10/29/2023 11:00 AM Ann Tello APRN; Derek Lindquist MD Hematology/Oncology at [facility] Arrive at: [facility] door at end of hallway [phone] 11/01/2023 1:00 PM Ariana Garcia MD General Surgery at [facility] Arrive at: [facility] [phone] Please dispose of unused excess opioids before your appointment or bring them with you to the appointment and we will help you dispose of them correctly. Future Orders Complete By Expires Basic Metabolic Panel (non-fasting) [LAB15 Custom] 10/11/2023 12/04/2023 Process Instructions: INCLUDES: Calcium, BUN, Creat, GFR, Glucose, Lytes Scheduling Instructions: Comments: Questions: Magnesium [MAX853 Custom] 10/11/2023 12/04/2023 Process Instructions: Scheduling Instructions: Comments: Questions: [employer] Devices [EQ161 Custom] As directed Process Instructions: Scheduling Instructions: Comments: FWW Questions: Device Needed: WALKER (E0143) Patient Height (cm): 154.9 cm (5' 1) Patient Weight: 86.5 kg (190 lb 11.2 oz) Diagnosis: Balance problem Instructions Given to Patient at Discharge: Patient Instructions Follow up scheduled with Dr. Pfeiffer on 10/11/2023 at 2:30pm. Follow up regarding high blood pressure while in the hospital and question need for blood pressure medication as an outpatient. Also, a BMP and magnesium lab have been ordered. Please have those drawn prior to this appointment on 10/10. Colon and Rectal Surgery Patient Discharge Instructions [...] liters of fluids daily. Driving: No driving if you are still sore [...] may promote a wound infection. Wound Care: Remove gauze dressing if applied over wound. Wash incision with soap and water, pat dry, and leave open to air. You may cover with gauze as needed to prevent incision rubbing on clothes or for any seepage. Lovenox: You will remain on Lovenox for anticoagulation for a total of 28 days from day of surgery. Please refer to instruction from your nurse for home administration. Pain Medication: Tylenol should be used as primary [id number] pain reliever; 1000mg every 6 hours as [...] with information about your appointments. Please call [phone] (clinic number for appointments only) to confirm date and time of your appointments or if you do not receive information about your appointment in a timely manner. For nursing questions, please call . Future Appointments Date Time Provider Department Center 10/29/2023 11:00 AM Derek Lindquist MD [facility] [place] [facility] 11/01/2023 1:00 PM Ariana Garcia MD [facility] SURG [facility] Call your doctor if: You develop any [...] AND HOLIDAYS: ASK FOR THE SURGERY RESIDENT ELECTRICAL AND INSTRUMENT MECHANIC IF ANY OF THE ABOVE OCCUR. Divison of [place] [address] ~~~~~~~~~~~~~~~~~~~~~~~~~~~~~~~~~~~~~~~~~~~~~~~~~~~~~~~~~~~~~~~~~~~ General Instructions None [facility] Surgery - Provider Contact Information: [phone] Primary Avril Physician: Hina MADRID [address] [place] [address] Signed: JANELLE Wheatley 10/04/23 9:32 AM documented in this encounter Discharge Instructions * Patient Instructions* Edilia Stevens PA - 09/29/2023 10:46 AM EDT Images from the original note were not included. Follow up scheduled with Dr. Pfeiffer on 10/11/2023 at 2:30pm. Follow up regarding high blood pressure while in the hospital and question need for blood pressure medication as an outpatient. Also, a BMP and magnesium lab have been ordered. Please have those drawn prior to this appointment on 10/10. Colon and Rectal Surgery Patient Discharge Instructions [...] liters of fluids daily. Driving: No driving if you are still sore [...] may promote a wound infection. Wound Care: Remove gauze dressing if applied over wound. Wash incision with soap and water, pat dry, and leave open to air. You may cover with gauze as needed to prevent incision rubbing on clothes or for any seepage. Lovenox: You will remain on Lovenox for anticoagulation for a total of 28 days from day of surgery. Please refer to instruction from your nurse for home administration. Pain Medication: Tylenol should be used as primary [id number] pain reliever; 1000mg every 6 hours as [...] with information about your appointments. Please call [phone] (clinic number for appointments only) to confirm date and time of your appointments or if you do not receive information about your appointment in a timely manner. For nursing questions, please call . Future Appointments Date Time Provider Department Center 10/29/2023 11:00 AM Derek Lindquist MD [facility] [place] [facility] 11/01/2023 1:00 PM Ariana Garcia MD [facility] SURG [facility] Call your doctor if: You develop any [...] AND HOLIDAYS: ASK FOR THE SURGERY RESIDENT ELECTRICAL AND INSTRUMENT MECHANIC IF ANY OF THE ABOVE OCCUR. Divison of Colon and Rectal Surgery [place] [phone] ~~~~~~~~~~~~~~~~~~~~~~~~~~~~~~~~~~~~~~~~~~~~~~~~~~~~~~~~~~~~~~~~~~~ documented in this encounter Medications at [...] Take 500 mg by mouth as needed. enoxaparin (Lovenox) 40 mg/0.4 mL Syringe Inject [...] as of this encounter Progress Notes * Manisha Friend - 10/04/2023 8:01 AM EDT Colorectal Surgery Inpatient Progress Note Patient Name: Blanca HAMMER; Age: 5 1955; 67 y.o. Room/Bed: [address] [place], [place] [address]A Today's Date: 10/04/23 ID: Blanca Lujan is a 67 y.o. female with PMH of stage IV T4 NX M1 colon cancer who underwent neoadjuvant therapy now 6 Days Post-Op s/p lap assisted right hemicolectomy with anastomosis with temporary right stent placement. Procedures this Hospitalization: -09/28/2023 - Hand-assisted laparoscopic right hemicolectomy with primary anastomosis, right temporary ureteral stent placement 24hr EVENTS/SUBJECTIVE: - no acute events - pain well-controlled on oral Tylenol - eating well, no n/v on low residue diet - 1 loose BM overnight - oob and walking x4 without walker -slept well on home CPAP OBJECTIVE VS - (Temp: [36.6 ??C (97.9 ??F)-36.8 ??C (98.2 ??F)] ) Temp: 36.8 ??C (98.2 ??F), (Heart Rate: --)Heart Rate: 88, (BP: (152-163)/(84-92) ) BP: (!) 163/92, (Resp: [16-18] ) Resp: 16, (SpO2: [96 %-97%] ) SpO2: 96 % Admit Weight: 86.46 kg Current Weight: Weight: 86.5 kg (190 lb 11.2 oz) 24 Hour I/O's: Input: 910 (910 PO) Output: 1310 ( 1310 urine) Physical Exam GENERAL: pleasant, no acute distress resting in bed CV: regular rate. PULM: breathing comfortably, no respiratory distress ABD: non-distended, soft, nontender EXT: No edema. SCDs in place. SKIN: warm, dry LABS: No results for input(s): WBC, HGB, HCT, PLATELET, PT, INR, PTT in the last 72 hours. Recent Labs 10/04/23 0457 10/03/23 0154 10/02/23 0521 NA 140 137 138 K 3.4* 3.2* 3.1* CL 103 100 99 CO2 28 26 27 BUN 11 11 12 CREATININE 0.60* 0.59* 0.60* GLUCOSE 129 99 117 CALCIUM 8.6 8.4* 8.5 MAGNESIUM 0.78 0.87 0.86 A/P: Blanca Lujan is a 67 y.o. female with PMH of stage IV colon cancer 6 Days Post-Op s/p lap assisted R hemicolectomy with temporary R stent placement. Plan for discharge today by noon. Schedule Lovenox teaching with her family before discharge. Schedule for follow-up with PCP in 1 week for BP check and labs. NEURO: PO tylenol jordan, jordan toradol/ibuprofen, lidoderm patches for pain CV: Hemodynamically normal. Tachycardia resolved. Prn Labetalol/Hydral for SBP>160 PULM: Encourage pulmonary toilet and ambulation. Home CPAP at night. GI/FEN: Fiber/Residue Restricted diet RENAL: UOP adequate. Continue IVF @ 42cc/hr. ENDO: No issues. HEME: Lovenox nightly and SCDs for DVT ppx. Lovenox teaching today with family. ID: No acute issues LINES: PIV DISPO: Floor status PT/OT - home Anticipated discharge needs: Lovenox teaching, shower chair Plan for discharge today by noon. Manisha Friend 10/04/2023 Colorectal Surgery [id number] * Monique Spivey MD - 10/03/2023 7:12 AM EDT Colorectal Surgery Progress Note Patient: Blanca Lujan : 1955 Room: [address] [place] [address]A Admit date: 09/28/2023 Attending: Ariana Garcia MD ID: Blanca Lujan is a 67-year-old female with a known history of stage IV T4 NX M1 colon cancerwith evidence of peritoneal disease who underwent preoperative adjuvant treatment. 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 Patient underwent preoperative neoadjuvant treatment with FOLFOX, CEA decreased from 16-2. She p resents for elective laparoscopic assisted right hemicolectomy with anastomosis with temporary right stent placement. Procedures: 09/28/23 - Hand-assisted laparoscopic right hemicolectomy with primary anastomosis, right temporary ureteral stent Subjective/24hr Events: - NG removed -Advanced to clear liquids -Ambulated around her room -Multiple liquid bowel movements overnight -Home flexeril given with good effect and was able to sleep last night so she feels better this morning Current Medications: acetaminophen 975 mg Oral Q6H JORDAN potassium chloride ER 20 mEq Oral TID pantoprazole 40 mg Intravenous Daily lidocaine 3 patch Transdermal Q24H sodium chloride 0.9 % (flush) 5 mL Intravenous BID enoxaparin 40 mg Subcutaneous Nightly Objective: Last value Range last 24hrs Temperature Temp: 36.8 ??C (98.2 ??F) Temp: [36.6 ??C (97.9 ??F)-36.9 ??C (98.4 ??F)] Heart Rate Heart Rate: 88 Heart Rate: [88] Blood Pressure BP: 159/87 BP: (142-182)/(60-100) Respiratory Rate Resp: 18 Resp: [16-19] SpO2 SpO2: 96 % SpO2: [94 %-97 %] Intake/Output Summary (Last 24 hours) at 10/03/2023 0844 Last data filed at 10/03/2023 0800 Gross per 24 hour Intake 869.3 ml Output 1525 ml Net -655.7 ml Physical Exam: Gen: NAD, awake/alert, resting in bed HEENT: moist mucous membranes. Sclera anicteric CV: regular rate Pulm: nonlabored breathing on room air Abd: mildly distended, soft. Appropriately tender to palpation. Incisions c/d/I with dermabond Ext: warm, well perfused x4, nontender, no edema or swelling Skin: warm, dry Labs: Recent Labs 10/01/23 0539 09/30/23191609/30/23 0927 WBC 9.8* 10.8* 10.9* HGB 13.6 14.0 14.0 HCT 40.2 40.5 41.0 PLATELET 188 181 179 Recent Labs 10/03/23 0154 10/02/23 0521 10/01/23 0539 09/30/231916 NA 137 138 137 139 K 3.2* 3.1* 3.7 3.8 CL 100 99 100 102 CO2 26 27 26 23 BUN 11 12 12 10 CREATININE 0.59* 0.60* 0.62* 0.62* GLUCOSE 99 117 161 166 CALCIUM 8.4* 8.5 8.9 8.9 MAGNESIUM 0.87 0.86 0.85 0.77 PHOS -- -- -- 2.4* Imaging: Results for orders placed or performed during the hospital encounter of 09/28/23 XR Abdomen Acute Series w PA Chest (Exam End: 09/30/2023 6:14 PM) Result Value WORKSTATION ID [id number] Impression 1. No pneumoperitoneum. 2. Mild small bowel dilatation suggestive of postoperative ileus. Thank you for letting us participate in the care of this patient. If you are a health care provider and have any questions regarding this report, please contact the number below. For patients who have questions please contact the health personal care worker that requested your imaging first. Abdomen 1 view (Generic) (Exam End: 09/30/2023 8:42 PM) Result Value WORKSTATION ID [id number] Impression FINDINGS/IMPRESSION: The distal portion of a nasogastric tube projects over the left side of the spine, tip projecting over the region of the gastric antrum. Similar gaseous distention of small bowel. Thank you for letting us participate in the care of this patient. If you are a health care provider and have any questions regarding this report, please contact the number below. For patients who have questions please contact the health personal care worker that requested your imaging first. Micro: Microbiology Results (last 7 days) No results found for the last 168 hours. A/P: Blanca Lujan is a 67 y.o. female with PMH of HTN, ZARA, PTSD, stage IV colon cancer 5 Days Post-Op s/p lap assisted right hemicolectomy with temporary R stent placement. Post operative coursecomplicated by ileus requiring nasogastric decompression that is resolved. NEURO: tylenol jordan, SQ dilaudid prn for pain, lidopatch. Cluster overnight care to help with sleep hygiene. Home flexeril TID prn. CV: Tachycardia resolved. Prn Labetalol(1)/Hydral(2) for SBP >160 prn PULM: Encourage pulmonary toilet. Home CPAP at night as tolerated Wean supplemental oxygen for goal saturation >92% as tolerated FEN/GI: Advance to low residue diet this morning. RENAL: Discontinue wells, follow up urine output. Discontinue IVF. ENDO: JAILYN HEME: DVT ppx: ambulation, SCDs, Lovenox ID: No acute issues WOUND: Dermabond LINES: PIV, NGT, Wells CODE: Attempt Cardiopulmonary Resuscitation - Inpatient DISPO: Floor status PT/OT - home Encourage OOB as tolerated Anticipated discharge needs: Lovenox teaching Monique Spivey MD 10/03/2023 Associated attestation - Lina Christie MD - 10/03/2023 4:43 PM EDT I have seen the patient and reviewed the resident's above history and I agree with the details as written. The assessment and plan were formulated in discussion with me and I agree with them as documented. Blanca is doing well Better sleep Ileus resolved - low res diet today Urinary retention requiring wells replacement - able to void today after removal Anticipate dc home Wednesday vs Wednesday Lina Christie MD FACS [employer] senior systems developer Division of Colon and Rectal Surgery [facility] Pager [phone] * Lary Chamberlain PT - 10/02/2023 5:01 PM EDT Physical Therapy Evaluation Patient profile: Blanca Lujan is a 67 y.o. female admitted on 09/28/[address] Ariana Garcia MD with a history of colon cancer who is here for laparoscopic assisted right hemicolectomy and cystoscopy with temporary stent with urology(surgery on 09/28/23). Patient with the following active problems: History reviewed. No pertinent past medical history. Past Surgical History: Procedure Laterality Date IR MEDIPORT PLACEMENT 04/14/2023 IR Mediport Placement 04/14/2023 David Bower, [facility] INTERVENTIONL RAD PRO COLONOSCOPY, BIOPSY N/A 03/16/2023 COLONOSCOPY FLEXIBLE, WITH BX (WRVU 3.56) performed by Shilo Lopez MD at [facility] ENDOSCOPY PRO CYSTOSCOPY, INSERT URETERAL STENT Right 09/28/2023 CYSTO, STENT PLACEMENT INTRAOP, TEMPORARY (WRVU 2.82) performed by Shon Lewis MD at [facility] MAIN OR PRO LAP, SURG, COLECTOMY, W/REMVL TERM ILEUM N/A 09/28/2023 @LAPAROSCOPIC ASSISTED COLECTOMY, PARTIAL, REM.TERMINAL ILEUM (WRVU 22.95) performed by Ariana Garcia MD at [facility] MAIN OR PRO UNLISTED LAPAROSCOPIC PROC ABD PERITONEUM & OMENTUM N/A 09/28/2023 LAPAROSCOPIC PARTIAL OMENTECTOMY (WRVU 15.67) performed by Ariana Garcia MD at [facility] MAIN OR PRO UNLISTED PX RECTUM N/A 03/16/2023 LOWER EUS- ENDOSCOPIC ULTRASOUND (WRVU 7.56) performed by Shilo Lopez MD at [facility] ENDOSCOPY PRO UPGI ENDOSCOPY W/US FN BX 03/16/2023 EGD, W US GUIDED FINE NEEDLE ASPIRATION/BIOPSY (WRVU 4.16) performed by Shilo Lopez MD at [facility] ENDOSCOPY Social History: Lives in [place] [address], [place] with daughter Home set-up: 1 level home Bathroom Set-up: walk-in shower with seat and grab bars Stairs: no steps to enter Baseline Mobility: (I) amb without a device. Precautions/Special Considerations: abdominal precautions-log roll, avoid straining with heavy lifting. NGT off suction, wells catheter. Ambulate in hallway 4x/day. Advancing to clear liquid today if can remain with NGT clamped another 2 hours (per RN). Mobility and Positioning Recommendations: Pt. should utilize rolling walker as needed for ambulation and transfers with nursing supervision Assist for IV pole. Please encourage up to chair for meal times as able. Pt encouraged to ambulate with staff, getting into the bathroom & walking in mccormack daily as able. Subjective: ???I may not need a walker by time I go home, but I want to hold onto it today, I feel alittle lightheaded, I've not eaten in 5 days.?? Objective: Pt seen for evaluation today. Pain: no c/o's Cardiopulmonary: HR: 80 bpm SpO2: 98 % RA Mental Status: alert, oriented to person, place, and time Musculoskeletal: (R) hand Dom ROM/Strength: WFL with mobility; generalize weakness from surgery and NPO status x 5 days. Bed Mobility: Supine ><Sit: modified independent Pt did leave HOB up 20* and pushed on railing otherwise totally (I). Offered to try from flat bed surface but she states she'll have pillows to prop up @ home and will get a railing. Transfers: Sit >< Stand: independent Bed to Chair: FWW (I) Gait: Distance: around 4 west unit 150' using FWW and only assist was for IV pole. Reciprocal gait with steady rogelio and managed with walker as she felt slightly lightheaded. Balance: Sitting: NORMAL- EOB (I) Standing / Gait: GOOD- using walker today. Education: patient has been educated on Safety , Role of therapy, Discharge planning, and importance to move post-op to help with GI motility as well as MS mobility working towards DC to home . Pt wanted to return to bed to rest with call tena within reach and needs on L on bedside table. Patient status, treatment, and mobility recommendations have been discussed with nursing. Assessment: Pt was seen today for physical therapy evaluation. Pt presents for surgery: laparoscopic assisted right hemicolectomy d/t cancer and has been NPO with NGT to suction until today, may haveNGT out later and advance diet to liquids (not eaten in 5 days), generalize weakness, abd incision/wells catheter, otherwise moving well and only assistance was for IV pole, pt relying on FWW and may need a walker @ time of DC. Inpatient Physical Therapy Plan: 1-2 more times for bed mobility training, gait training, and DC planning needs . Assess if she'll need a FWW for DC. Discharge Recommendations: Home with daughter's support Consult Recommendations: No other consults recommended at this time. Equipment needs: walker, front wheeled, to be determined Goals: To be achieved by : Pt. to demonstrate knowledge of safety precautions by appropriately requesting assistance to mobilize. Pt. to perform bed mobility independently with log roll. Pt. to perform sit><stand transfers independently. Pt. to ambulate 150 feet independently; assess if she'll need FWW. Pt. to ambulate up/down 1-2 steps using one hand hold independently. Pt will tolerate activity progression with stable pain level & vital signs. Thank you for this consult. LARY CHAMBERLAIN, PT Pager: [phone] Physical Therapy Inpatient Rehabilitation Department Time IN / OUT: 12:06-12:26 Total Minutes, Physical Therapy: 20 (EV) minutes 2017 PT Evaluation Code Rationale: Diagnosis & Pertinent Co-Morbidities, personal factors, and present illness affecting Plan of Care: (see above); Additional personal factors or co- morbidities that impact plan: Total # of Factors: 0 1-2 3+ x Examination of body system impairments, functional limitations and behaviors, and/or participation restrictions. Addressing 1-2 elements Addressing 3 + elements x Addressing 4 + elements Clinical presentation: See assessment above. Stable/Uncomplicated Evolving/Fluctuating Symptoms Unstable/Unpredictable x Clinical decision making of moderate complexity based on pt's functional performance as outlined inthis evaluation. * Monique Spivey MD - 10/02/2023 9:33 AM EDT Colorectal Surgery Progress Note Patient: Blanca Lujan : 1955 Room: [address] [place] [address] Admit date: 09/28/2023 Attending: Ariana Garcia MD ID: Blanca Lujan is a 67-year-old female with a known history of stage IV T4 NX M1 colon cancerwith evidence of peritoneal disease who underwent preoperative adjuvant treatment. 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 Patient underwent preoperative neoadjuvant treatment with FOLFOX, CEA decreased from 16-2. She p resents for elective laparoscopic assisted right hemicolectomy with anastomosis with temporary right stent placement. Procedures: 09/28/23 - Hand-assisted laparoscopic right hemicolectomy with primary anastomosis, right temporary ureteral stent Subjective/24hr Events: - Wells replaced for urinary retention - Passing flatus and had a liquid bowel movement - Feels improved in terms of abdominal discomfort and nausea Current Medications: acetaminophen 1,000 mg Intravenous Q8H JORDAN potassium chloride 10 mEq Intravenous Q2H magnesium sulfate 1 g Intravenous Once pantoprazole 40 mg Intravenous Daily lidocaine 3 patch Transdermal Q24H sodium chloride 0.9 % (flush) 5 mL Intravenous BID enoxaparin 40 mg Subcutaneous Nightly Objective: Last value Range last 24hrs Temperature Temp: 36.4 ??C (97.5 ??F) Temp: [36.3 ??C (97.3 ??F)-37 ??C (98.6 ??F)] Heart Rate Heart Rate: 88 Heart Rate: [88-99] Blood Pressure BP: 160/86 BP: (138-189)/(78-103) Respiratory Rate Resp: 18 Resp: [15-18] SpO2 SpO2: 97 % SpO2: [94 %-97 %] Intake/Output Summary (Last 24 hours) at 10/02/2023 0933 Last data filed at 10/02/2023 0811 Gross per 24 hour Intake 1025.5 ml Output 2875 ml Net -1849.5 ml NGT 1L/ 24 horus Physical Exam: Gen: NAD, awake/alert HEENT: moist mucous membranes. NG in place with thin bilious drainage. CV: tachycardic rate with normal rhythm, normal S1/S2 Pulm: nonlabored breathing on room air Abd: mildly distended, soft (improved from yesterday). Appropriately tender to palpation. Ext: warm, well perfused x4, nontender, no edema or swelling Labs: Recent Labs 10/01/23 0539 09/30/23 1917 09/30/23 0927 WBC 9.8* 10.8* 10.9* HGB 13.6 14.0 14.0 HCT 40.2 40.5 41.0 PLATELET 188 181 179 Recent Labs 10/02/23 0521 10/01/23 0539 09/30/23 1917 NA 138 137 139 K 3.1* 3.7 3.8 CL 99 100 102 CO2 27 26 23 BUN 12 12 10 CREATININE 0.60* 0.62* 0.62* GLUCOSE 117 161 166 CALCIUM 8.5 8.9 8.9 MAGNESIUM 0.86 0.85 0.77 PHOS -- -- 2.4* CRP 286 ->185 Imaging: Results for orders placed or performed during the hospital encounter of 09/28/23 XR Abdomen Acute Series w PA Chest (Exam End: 09/30/2023 6:14 PM) Result Value WORKSTATION ID [id number] Impression 1. No pneumoperitoneum. 2. Mild small bowel dilatation suggestive of postoperative ileus. Thank you for letting us participate in the care of this patient. If you are a health care provider and have any questions regarding this report, please contact the number below. For patients who have questions please contact the health personal care worker that requested your imaging first. Abdomen 1 view (Generic) (Exam End: 09/30/2023 8:42 PM) Result Value WORKSTATION ID [id number] Impression FINDINGS/IMPRESSION: The distal portion of a nasogastric tube projects over the left side of the spine, tip projecting over the region of the gastric antrum. Similar gaseous distention of small bowel. Thank you for letting us participate in the care of this patient. If you are a health care provider and have any questions regarding this report, please contact the number below. For patients who have questions please contact the health personal care worker that requested your imaging first. Micro: Microbiology Results (last 7 days) No results found for the last 168 hours. A/P: Blanca Lujan is a 67 y.o. female with PMH of HTN, ZARA, PTSD, stage IV colon cancer 4 Days Post-Op s/p lap assisted right hemicolectomy with temporary R stent placement. Post operative coursecomplicated by ileus requiring nasogastric decompression. NEURO: tylenol jordan, SQ dilaudid prn for pain, lidopatch. Cluster overnight care to help with sleep hygiene. CV: Tachycardia resolved. Prn Labetalol(1)/Hydral(2) for SBP >160 prn PULM: Encourage pulmonary toilet. Home CPAP at night as tolerated with NGT in place Wean supplemental oxygen for goal saturation >92% as tolerated FEN/GI: Sips and Chips (Give Meds); Clamp trial NG tube today. Advance to fluid restricted (1L ) clears if passes. RENAL: Continue wells catheter for postoperative urinary retention. mIVF @ 42 ENDO: JAILYN HEME: DVT ppx: ambulation, SCDs, Lovenox ID: No acute issues WOUND: Dermabond LINES: PIV, NGT, Wells CODE: Attempt Cardiopulmonary Resuscitation - Inpatient DISPO: Floor status PT/OT - home Encourage OOB as tolerated Anticipated discharge needs: Lovenox teaching Monique Spivey MD 10/02/2023 * Adi Lazo PT - 10/01/2023 2:13 PM EDT 10/01/23 1412 Evaluation & Treatment Document Type contact Total Minutes, Physical Therapy 5 Comment, Session Not Performed PT consult recieved, attempted to work woth patient x2 today, pt reporting of severe nausea and dizziness deferring to mobilize with PT. PT will continue to follow and evaluate as able. Thank you Adi Lazo PT Pager [phone] Inpatient Rehabilitation * Serjio Soriano MD - 10/01/2023 1:42 PM EDT Colorectal Surgery Progress Note Patient: Blanca Lujan : 1955 Room: [address] [place] [address] Admit date: 09/28/2023 Attending: Ariana Garcia MD ID: Blanca Lujan is a 67-year-old female with a known history of stage IV T4 NX M1 colon cancerwith evidence of peritoneal disease who underwent preoperative adjuvant treatment. 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 Patient underwent preoperative neoadjuvant treatment with FOLFOX, CEA decreased from 16-2. She p resents for elective laparoscopic assisted right hemicolectomy with anastomosis with temporary right stent placement. Procedures: 09/28/23 - Hand-assisted laparoscopic right hemicolectomy with primary anastomosis, right temporary ureteral stent Findings: Liver appeared to have fatty infiltration Entire right colectomy performed Appendix was attached to peritoneal sidewall in the right lower quadrant All evidence of disease was removed Ileocolic resection performed at the base of the mesentery Hepatic flexure was foreshortened with difficult dissection around the duodenum Right ureteral stent removed at end of case Subjective/24hr Events: - Worsening abdominal pain with ongoing nausea last evening - Acute abd series performed, no intraperitoneal free air, dilated loops of bowel - NGT placed with 200cc output and improvement in symptoms, complaint of phlegmonatous cough - HTN urgency with SBP >180 overnight, increased frequency of prn anti-hypertensives - remains low tachy 90-100's and stable on room air, no CPAP overnight - denies ongoing nausea currently, abdominal pain slightly improved but still moderate - wells removed yesterday, voided appropriately, none overnight with concern for acute urinary retention Current Medications: acetaminophen 1,000 mg Intravenous Q6H pantoprazole 40 mg Intravenous Daily lidocaine 3 patch Transdermal Q24H sodium chloride 0.9 % (flush) 5 mL Intravenous BID enoxaparin 40 mg Subcutaneous Nightly Objective: Last value Range last 24hrs Temperature Temp: 36.4 ??C (97.5 ??F) Temp: [36.4 ??C (97.5 ??F)-37.1 ??C (98.8 ??F)] Heart Rate Heart Rate: 99 Heart Rate: [96-99] Blood Pressure BP: (!) 177/100 BP: (147-216)/(84-136) Respiratory Rate Resp: 17 Resp: [17-19] SpO2 SpO2: 96 % SpO2: [92 %-97 %] Intake/Output Summary (Last 24 hours) at 10/01/2023 1342 Last data filed at 10/01/2023 1200 Gross per 24 hour Intake 1500 ml Output 1625 ml Net -125 ml NGT - 200cc / since placement Physical Exam: Gen: NAD, awake/alert CV: tachycardic rate with normal rhythm, normal S1/S2 Pulm: nonlabored breathing on room air Abd: soft, moderately tender, mildly distended, incisions c/d/i Ext: warm, well perfused x4, nontender, no edema or swelling Labs: Recent Labs 10/01/2353809/30/23191609/30/23 0927 WBC 9.8* 10.8* 10.9* HGB 13.6 14.0 14.0 HCT 40.2 40.5 41.0 PLATELET 188 181 179 Recent Labs 10/01/2353809/30/23191609/30/23 0545 NA 137 139 139 K 3.7 3.8 3.8 CL 100 102 102 CO2 26 23 25 BUN 12 10 10 CREATININE 0.62* 0.62* 0.83 GLUCOSE 161 166 150 CALCIUM 8.9 8.9 8.9 MAGNESIUM 0.85 0.77 0.75 PHOS -- 2.4* -- CRP 286 ->185 Imaging: Results for orders placed or performed during the hospital encounter of 09/28/23 XR Abdomen Acute Series w PA Chest (Exam End: 09/30/2023 6:14 PM) Result Value WORKSTATION ID [id number] Impression 1. No pneumoperitoneum. 2. Mild small bowel dilatation suggestive of postoperative ileus. Thank you for letting us participate in the care of this patient. If you are a health care provider and have any questions regarding this report, please contact the number below. For patients who have questions please contact the health personal care worker that requested your imaging first. Abdomen 1 view (Generic) (Exam End: 09/30/2023 8:42 PM) Result Value WORKSTATION ID [id number] Impression FINDINGS/IMPRESSION: The distal portion of a nasogastric tube projects over the left side of the spine, tip projecting over the region of the gastric antrum. Similar gaseous distention of small bowel. Thank you for letting us participate in the care of this patient. If you are a health care provider and have any questions regarding this report, please contact the number below. For patients who have questions please contact the health personal care worker that requested your imaging first. Micro: Microbiology Results (last 7 days) No results found for the last 168 hours. A/P: Blanca Lujan is a 67 y.o. female with PMH of HTN, ZARA, PTSD, stage IV colon cancer 3 Days Post-Op s/p lap assisted right hemicolectomy with temporary R stent placement. Post operative coursecomplicated by presumed ileus noted on KUB. Tachycardia and hypertension likely secondary to this with sympathetic overdrive from discomfort. Improved with NGT placement, albeit low output thus far. Found to be in acute urinary retention today, exacerbating her symptoms, plan for wells decompression. NEURO: tylenol jordan, SQ dilaudid prn for pain, lidopatch CV: Monitor tachycardia Prn Labetalol(1)/Hydral(2) for SBP >160 prn PULM: Encourage pulmonary toilet. Home CPAP at night as tolerated with NGT in place Wean supplemental oxygen for goal saturation >92% as tolerated FEN/GI: Sips and Chips (Give Meds); mIVF @ 42 NGT to LCWS, monitor for ROBF Daily BMP/Mg/Phos, replete lytes prn Trend CRP RENAL: Strict I/O's Replace wells catheter ENDO: JAILYN HEME: DVT ppx: ambulation, SCDs, Lovenox Daily CBC ID: Trend WBC/Fevers S/p periop Abx WOUND: dermabond LINES: PIV, NGT, replace wells CODE: Attempt Cardiopulmonary Resuscitation - Inpatient DISPO: Floor status PT/OT - home Encourage OOB as tolerated Anticipated discharge needs: Lovenox teaching Plan discussed with Dr. Simone Christie, Attending Surgeon. Serjio Soriano MD 10/01/2023 * Vanesa Murillo, COOKIE - 10/01/2023 12:58 PM EDT Nutrition NPO Note Blanca Lujan is a 67 y.o. female Patient has been NPO or on a clear liquid diet only for 4 days, increasing risk for malnutrition. If clinically unable to advance oral diet consider consult to Nutrition Services to evaluate for potential nutrition support. Visualized patient for overt cachectic appearance: no Active Orders Diet Sips and Chips (Give Meds) Frequency: Effective Now Number of Occurrences: Until Specified Admit Weight: 86.46 kg Estimated body mass index is 36.28 kg/m?? as calculated from the following: Height as of this encounter: 154.9 cm (5' 1). Weight as of this encounter: 87.1 kg (192 lb 0.3 oz). Wt Readings from Last 5 Encounters: 09/30/23 87.1 kg (192 lb 0.3 oz) 09/10/23 88.5 kg (195 lb) 09/09/23 90.7 kg (199 lb 14.4 oz) 08/13/23 86.8 kg (191 lb 6.4 oz) 08/10/23 87.3 kg (192 lb 6.4 oz) Patient Vitals for the past 168 hrs: Weight 09/30/23 0345 87.1 kg (192 lb 0.3 oz) 09/28/23 1334 86.5 kg (190 lb 9.6 oz) Weight loss: not clinically significant Vanesa Murillo RD * Manisha Friend S - 10/01/2023 8:56 AM EDT Colorectal Surgery Inpatient Progress Note Patient Name: Blanca Lujan ; Age: 5 1955; 67 y.o. [facility]: 10[facility]01/23 ID: Blanca Lujan is a 67 y.o. female with PMH of stage IV T4 NX M1 colon cancer who underwent preoperative neoadjuvant therapy now 3 Days Post-Op s/p laparoscopic assisted right hemicolectomy with anastomosis with temporary right stent placement. Procedures this Hospitalization: 09/28/23- Hand-assisted laparoscopic right hemicolectomy with primary anastomosis, with R temp ureteral stent placement 24hr EVENTS/SUBJECTIVE -NG tube placed with 200 cc output, pt coughing up phlegm -continued pain and nausea in waves -no BM, did pass flatus -did not void overnight -no OOB overnight -slept throughout the night without home CPAP, no SOB OBJECTIVE VS - (Temp: [36.6 ??C (97.9 ??F)-37.1 ??C (98.8 ??F)] ) Temp: 36.6 ??C (97.9 ??F), (Heart Rate: [96-108] ) Heart Rate: 97, (BP: (147-206)/(84-129) ) BP: (!) 169/94, (Resp: [17-19] ) Resp: 18, (SpO2: [92 %-97 %] ) SpO2: 96 % Admit Weight: 86.46 kg Current Weight: Weight: 87.1 kg (192 lb 0.3 oz) 24 Hour I/O's: I/Os over the last 24 hours: Intake: 1000 (IV 1000) Output: 600 (Urine 400, NGT 200) Physical Exam GENERAL: pleasant, no acute distress resting in bed CV: regular rate. PULM: breathing comfortably, no respiratory distress ABD: moderately distended, tender to deep palpation, incisions c/d/i : sensation of having to void but low UO EXT: No edema. SCDs in place. SKIN: warm, dry LABS: Recent Labs 10/01/23 0539 09/30/23191609/30/23 0927 09/29/23 0104 09/28/23 1750 WBC 9.8* 10.8* 10.9* -- -- HGB 13.6 14.0 14.0 15.0 15.6* HCT 40.2 40.5 41.0 43.5 46.4* PLATELET 188 181 179 -- -- Recent Labs 10/01/23 0539 09/30/23191609/30/23 0545 09/29/23 1317 09/29/23 0104 NA 137 139 139 141 -- K 3.7 3.8 3.8 4.3 -- CL 100 102 102 103 -- CO2 26 23 25 27 -- BUN 12 10 10 11 -- CREATININE 0.62* 0.62* 0.83 0.86 0.72 GLUCOSE 161 166 150 130 -- CALCIUM 8.9 8.9 8.9 9.0 -- MAGNESIUM 0.85 0.77 0.75 0.70 -- PHOS -- 2.4* -- -- -- NEW IMAGING: -XR Abdomen 09/30/23 showed mild gaseous distension of small bowel loops with differential air-fluidlevels. A/P: Blanca Lujan is a 67 y.o. female with PMH of NTH, ZARA, PTSD and stage IV colon cancer 3 Days Post-Op s/p lap assisted right hemicolectomy with temp R stent placement. Patient has urinary retention with no urine output in the last 12 hours. Plan to put in Wells and carefully monitor output.Continue low suction NGT for decompression. Consider anti-hypertensives if persistent HTN. Encourage OOB with PT/OT. NEURO: tylenol jordan, jordan toradol/ibuprofen, lidoderm patches and prn sq dilaudid. CV: Monitor tachycardia. Anti-hypertensives if HTN persists. PULM: Encourage pulmonary toilet and ambulation. GI/FEN: Sips and Chips (Give Meds); Await return of bowel function. Continue low suction NGT. RENAL: Low UOP. Insert Wells. Continue IVF @ 42cc/hr. ENDO: No issues. HEME: Lovenox nightly and SCDs for DVT ppx. Lovenox teaching. ID: No acute issues LINES: PIV DISPO: Floor status PT/OT Encourage OOB as tolerated Anticipated discharge needs: Lovenox teaching Manisha Friend, MS3 10/01/2023 Colorectal Surgery [id number] * Serjio Soriano MD - 09/30/2023 7:30 AM EDT Colorectal Surgery Progress Note Patient: Blanca Lujan : 1955 Room: [address] [place] [address] Admit date: 09/28/2023 Attending: Ariana Garcia MD ID: Blanca Lujan is a 67-year-old female with a known history of stage IV T4 NX M1 colon cancerwith evidence of peritoneal disease who underwent preoperative adjuvant treatment. 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 Patient underwent preoperative neoadjuvant treatment with FOLFOX, CEA decreased from 16-2. She p resents for elective laparoscopic assisted right hemicolectomy with anastomosis with temporary right stent placement. Procedures: 09/28/23 - Hand-assisted laparoscopic right hemicolectomy with primary anastomosis, right temporary ureteral stent Findings: Liver appeared to have fatty infiltration Entire right colectomy performed Appendix was attached to peritoneal sidewall in the right lower quadrant All evidence of disease was removed Ileocolic resection performed at the base of the mesentery Hepatic flexure was foreshortened with difficult dissection around the duodenum Right ureteral stent removed at end of case Subjective/24hr Events: - NAEO, tachycardic and hypertensive, on home CPAP overnight but room air otherwise - EKG obtained with sinus tachycardia - adequate UOP, 2500cc/24hr (mkh = 1.20) - pain control is slightly improved, was dizzy with SQ dilaudid yesterday - OOB to chair - nauseous a few times, ativan given once with some effect, feels congested - no flatus/BM Current Medications: acetaminophen 1,000 mg Intravenous Q8H JORDAN lidocaine 3 patch Transdermal Q24H sodium chloride 0.9 % (flush) 5 mL Intravenous BID enoxaparin 40 mg Subcutaneous Nightly Objective: Last value Range last 24hrs Temperature Temp: 36.6 ??C (97.9 ??F) Temp: [36.5 ??C (97.7 ??F)-37 ??C (98.6 ??F)] Heart Rate Heart Rate: 86 Heart Rate: -- Blood Pressure BP: (!) 155/94 BP: (107-188)/(68-109) Respiratory Rate Resp: 17 Resp: [14-18] SpO2 SpO2: 98 % SpO2: [93 %-98 %] Intake/Output Summary (Last 24 hours) at 09/30/2023 0730 Last data filed at 09/30/2023 0353 Gross per 24 hour Intake 1130 ml Output 2500 ml Net -1370 ml Physical Exam: Gen: NAD, awake/alert CV: regular rate/rhythm, normal S1/S2 Pulm: nonlabored breathing on room air Abd: soft, appropriately tender, non-distended, incisions c/d/i : Wells draining CYU Ext: warm, well perfused x4, nontender, no edema or swelling Labs: Recent Labs 09/29/23 0104 09/28/23 1750 HGB 15.0 15.6* HCT 43.5 46.4* Recent Labs 09/30/23 0545 09/29/23 1317 09/29/23 0104 NA 139 141 -- K 3.8 4.3 -- CL 102 103 -- CO2 25 27 -- BUN 10 11 -- CREATININE 0.83 0.86 0.72 GLUCOSE 150 130 -- CALCIUM 8.9 9.0 -- MAGNESIUM 0.75 0.70 -- No results found for: SPGRAVITYUA, PHUADIP, PROTEINUADIP, GLUCOSEU, KETONESUA, UROBILIUADIP, BLOODUADIP, NITRATEUA, LEUKOESTERUA, WBCUA, BILIRUBINUA Imaging: No results found for this visit on 09/28/23. Micro: Microbiology Results (last 7 days) No results found for the last 168 hours. A/P: Blanca Lujan is a 67 y.o. female with PMH of HTN, ZARA, PTSD, stage IV colon cancer 2 Days Post-Op s/p lap assisted right hemicolectomy with temporary R stent placement. Persistent tachycardia with adequate UOP and reassuring EKG. Unlikely related to a DVT/PE given exam findings and excellent oxygenation. Most likely related to pain and nausea, will continue to monitor for now. NEURO: tylenol jordan, SQ dilaudid prn for pain; - add toradol 3 doses, lidopatch CV: Monitor tachycardia PULM: Encourage pulmonary toilet. Home CPAP at night Wean supplemental oxygen for goal saturation >92% as tolerated FEN/GI: Clear Liquid; mIVF @ 42 Consider NGT if persistently nauseous RENAL: Strict I/O's D/c wells, follow up PVRs ENDO: JAILYN HEME: DVT ppx: ambulation, SCDs, Lovenox - obtain H/H today ID: Trend WBC/Fevers S/p periop Abx WOUND: dermabond LINES: PIV, wells CODE: Attempt Cardiopulmonary Resuscitation - Inpatient DISPO: Floor status PT/OT ordered Encourage OOB as tolerated Anticipated discharge needs: Lovenox teaching Plan discussed with Dr. Simone Christie, Attending Surgeon. Serjio Soriano MD 09/30/2023 * Adi Lazo PT - 09/29/2023 2:36 PM EDT 09/29/23 1435 Evaluation & Treatment Document Type contact Total Minutes, Physical Therapy 0 Treatment Date 09/29/23 Comment, Session Not Performed PT consult received, chart reviewed. Spoke with RN, pt was anxious, c/o pain, received Valium and has been resting and sleeping. PT will evaluate as able and medically appropriate. Thank you Adi Lazo PT Pager [phone] Inpatient Rehabilitation * Serjio Soriano MD - 09/29/2023 8:50 AM EDT Colorectal Surgery Progress Note Patient: Blanca Lujan : 1955 Room: [address] Admit date: 09/28/2023 Attending: Ariana Garcia MD ID: Blanca Lujan is a 67-year-old female with a known history of stage IV T4 NX M1 colon cancerwith evidence of peritoneal disease who underwent preoperative adjuvant treatment. 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 Patient underwent preoperative neoadjuvant treatment with FOLFOX, CEA decreased from 16-2. She p resents for elective laparoscopic assisted right hemicolectomy with anastomosis with temporary right stent placement. Procedures: 09/28/23 - Hand-assisted laparoscopic right hemicolectomy with primary anastomosis, right temporary ureteral stent Findings: Liver appeared to have fatty infiltration Entire right colectomy performed Appendix was attached to peritoneal sidewall in the right lower quadrant All evidence of disease was removed Ileocolic resection performed at the base of the mesentery Hepatic flexure was foreshortened with difficult dissection around the duodenum Right ureteral stent removed at end of case Subjective/24hr Events: - OR for above - NAEO, Afebrile, HDS, slight tachy 110's earlier this AM - PACU labs wnl - rates pain moderate-severe with TAP wearing off - not OOB thus far - no PO intake yet, denies n/v, denies f/c/cp/sob but feels a little fuzzy around xyphoid - denies flatus/BM Current Medications: lidocaine 3 patch Transdermal Q24H ketorolac 15 mg Intravenous Q6H sodium chloride 0.9 % (flush) 5 mL Intravenous BID ondansetron ODT 8 mg Oral Q8H acetaminophen 1,000 mg Intravenous Q6H JORDAN enoxaparin 40 mg Subcutaneous Nightly Objective: Last value Range last 24hrs Temperature Temp: 37.2 ??C (99 ??F) Temp: [36.1 ??C (97 ??F)-37.2 ??C (99 ??F)] Heart Rate Heart Rate: 86 Heart Rate: [61-87] Blood Pressure BP: 133/75 BP: (128-171)/(75-94) Respiratory Rate Resp: 16 Resp: [12-19] SpO2 SpO2: 95 % SpO2: [92 %-100 %] Intake/Output Summary (Last 24 hours) at 09/29/2023 0850 Last data filed at 09/29/2023 0800 Gross per 24 hour Intake 2360 ml Output 785 ml Net 1575 ml Physical Exam: Gen: NAD, awake/alert CV: regular rate/rhythm, normal S1/S2 Pulm: nonlabored breathing on room air Abd: soft, appropriately tender, non-distended, incisions c/d/i : Wells draining red-tinged urine, no blood clots Ext: warm, well perfused x4 Labs: Recent Labs 09/29/23 0104 09/28/23 1750 HGB 15.0 15.6* HCT 43.5 46.4* Recent Labs 09/29/23 0104 09/28/23 1750 CREATININE 0.72 0.93 No results found for: SPGRAVITYUA, PHUADIP, PROTEINUADIP, GLUCOSEU, KETONESUA, UROBILIUADIP, BLOODUADIP, NITRATEUA, LEUKOESTERUA, WBCUA, BILIRUBINUA Imaging: No results found for this visit on 09/28/23. Micro: Microbiology Results (last 7 days) No results found for the last 168 hours. A/P: Blanca Lujan is a 67 y.o. female with PMH of HTN, ZARA, PTSD, stage IV colon cancer 1 Day Post-Op s/p lap assisted right hemicolectomy with temporary R stent placement. Appears to be recovering appropriately with undermanaged pain control currently and slight tachycardia. This may be related to sympathetic tone as well as hypovolemia from insensible fluid losses during prolonged operationwith portion of the case performed open. We will attempt to manage pain and consider fluid resuscitation. Continue wells cath for assistance of this. Otherwise, adv to CLD and monitor for ROBF NEURO: tylenol jordan, SQ dilaudid prn for pain; - add toradol 3 doses, lidopatch CV: Monitor tachycardia, consider fluid resuscitation PULM: Encourage pulmonary toilet. Home CPAP at night Wean supplemental oxygen for goal saturation >92% as tolerated FEN/GI: Clear Liquid; mIVF @ 42 RENAL: Strict I/O's Maintain wells to gravity drainage ENDO: JAILYN HEME: DVT ppx: ambulation, SCDs, Lovenox ID: Trend WBC/Fevers S/p periop Abx WOUND: dermabond LINES: PIV, wells CODE: Attempt Cardiopulmonary Resuscitation - Inpatient DISPO: Floor status PT/OT ordered Encourage OOB as tolerated Anticipated discharge needs: Lovenox teaching Plan discussed with Dr. Garcia, Attending Surgeon. Serjio Soriano MD 09/29/2023 * Manisha Friend S - 09/29/2023 6:47 AM EDT Colorectal Surgery Inpatient Progress Note Patient Name: Blanca Lujan ; Age: 5 1955; 67 y.o. [facility] Today's Date: 09/29/23 ID: Blanca Lujan is a 67 y.o. female with PMH of stage IV colon cancer who underwent preoperative neoadjuvant therapy now 1 Day Post-Op s/p laparoscopic assisted right hemicolectomy with anastomosis with temporary right stent placement. Procedures this Hospitalization: -lap assisted partial colectomy -removal of terminal ileum -lap partial omentectomy -cystoscopy w temp R stent placement 24hr EVENTS -tachycardic to 100s SUBJECTIVE Blanca Lujan reports feeling some abdominal pain, managed with Dilaudid overnight but incompletely resolved. She has not had any n/v with sips/chips. No BM or passed gas. Her Wells is draining adequately with dark red urine. She has not been out of bed. OBJECTIVE VS - (Temp: [36.1 ??C (97 ??F)-37.2 ??C (99 ??F)] ) Temp: 37.2 ??C (99 ??F), (Heart Rate: [61-87] )Heart Rate: 86, (BP: (128-164)/(75-91) ) BP: 133/75, (Resp: [12-19] ) Resp: 16, (SpO2: [92 %-100 %]) SpO2: 95 % Admit Weight: 86.46 kg Current Weight: Weight: 86.5 kg (190 lb 9.6 oz) 24 Hour I/O's: I/O last 3 completed shifts: In: 2034 [I.V.:2034] Out: 200 [Urine:170; Blood:30] Physical Exam GENERAL: pleasant, no acute distress resting in bed HEENT: CV: slightly tachycardic PULM: breathing comfortably, no respiratory distress ABD: non-distended, soft, nontender OSTOMY: N/A : Wells to gravity draining dark red urine EXT: No edema. SCDs in place. SKIN: warm, dry DRAINS: N/A LABS: Recent Labs 09/29/23 0104 09/28/23 1750 HGB 15.0 15.6* HCT 43.5 46.4* Recent Labs 09/29/23 0104 09/28/23 1750 CREATININE 0.72 0.93 A/P: Blanca Lujan is a 67 y.o. female with PMH of stage IV colon cancer 1 Day Post-Op s/p lap assisted right hemicolectomy with temporary R stent placement. -Plan to order Lidocaine patches and schedule IV toradol for better pain management -Continue to monitor for tachycardia after new pain meds -Advance diet to clears -Schedule with PT/OT to encourage ambulation NEURO: tylenol jordan, jordan toradol/ibuprofen, lidoderm patches and prn sq dilaudid for pain; CV: Hemodynamically normal. Monitor HR for tachycardia PULM: Encourage pulmonary toilet and ambulation. GI/FEN: Advance diet from sips/chips to clear liquids; Await return of bowel function. RENAL: UOP adequate. Continue IVF @ 42cc/hr. Continue to monitor blood. ENDO: No issues. HEME: Lovenox nightly and SCDs for DVT ppx. Schedule Lovenox teaching ID: No acute issues LINES: PIV, DISPO: Floor status Anticipated discharge needs: PT/OT for ambulation. Manishahebert Friend, MS3 09/29/2023 Colorectal Surgery [id number] Associated attestation - Ariana Garcia MD - 09/29/2023 4:29 PM EDT I examined and evaluated Blanca Lujan with the colorectal surgery team and the patient's assigned nurse. I agree with the assessment and plan as outlined Ariana Garcia MD, MS, FACS, FASCRS Chief, Division of Colon and Rectal Surgery [facility] Pager [phone] * Vicki Galan MD - 09/28/2023 8:02 PM EDT Surgery Post Op Check Operation/Procedure: 09/28/2023 Surgeon(s) and Role: Panel 1: * Ariana Garcia MD - Primary * Monique Spivey MD - Resident - Assisting * Serjio Soriano MD - Resident - Assisting Panel 2: * Shon Lewis MD - Primary * Bennie Smith MD - Resident - Assisting: Procedure(s): @LAPAROSCOPIC ASSISTED COLECTOMY, PARTIAL, REM.TERMINAL ILEUM (WRVU 22.95) CYSTO, STENT PLACEMENT INTRAOP, TEMPORARY (WRVU 2.82) LAPAROSCOPIC PARTIAL OMENTECTOMY (WRVU 15.67) Findings: Very difficult case please place modifier greater than 200% long as usual Liver appeared to have fatty infiltration Entire right colectomy performed Appendix was attached to peritoneal sidewall in the right lower quadrant All evidence of disease was removed Ileocolic resection performed at the base of the mesentery Hepatic flexure was foreshortened with difficult dissection around the duodenum Blanca Lujan is a 67 y.o. female status post laparoscopic assisted right hemicolectomy for invasive adenocarcinoma of unclear origin (CRS), temporary right ureteral stent placement (Urology). Subjective/Events: Patient denies nausea, vomiting, chest pain, shortness of breath. Pain adequately controlled. Offers no complaints. Reports being sleepy. Patient had TAP block performed pre-operatively. Objective: Temp: [36.1 ??C (97 ??F)-36.4 ??C (97.5 ??F)] Heart Rate: [61-87] Resp: [12-19] BP: (135-171)/(76-94) SpO2: [92 %-100 %] Heart Rate from SpO2: [76 bpm-85 bpm] O2 Device: Nasal cannula No intake/output data recorded. Physical Exam GEN: resting comfortably in bed, conversant, NAD, drowsy HEENT: normocephalic, atraumatic CHEST: comfortable work of breathing on 2L NC CV: regular rate, well perfused ABD: Port site incision/upper midline incision intact with Dermabond, no bleeding appreciated. Abdomen is soft and nontender. Nondistended. : Wells in place with red-tinged urine in canister, expected EXTR: moving all extremities spontaneously NEURO: awake and alert, grossly intact, nonfocal, follows commands Assessment and Plan: Blanca Lujan is a 67 y.o. female status post status post laparoscopic assisted right hemicolectomy for invasive adenocarcinoma of unclear origin and right ureteral stent placement currently in stable condition and recovering well. Still a bit drowsy on exam, will return to check again later. - Hemodynamically stable - Pain adequately controlled - Wells in place, UOP appropriate at time of POC, red-tinged urine expected in setting of ureteral stent placement. - LR @ 42 ml/h - Follow up AM labs - Diet: Sips and Chips (Give Meds) Vicki Galan MD 09/28/2023 Colorectal Surgery, Team Pager [phone] * Kkii Kirby RN - 09/28/2023 6:20 PM EDT 1810: RN break relief. * Suzy Becerra RN - 09/28/2023 5:35 PM EDT 1724) Patient into PACU from OR. Attached to monitors, alarms on and appropriate for patient. Willam 1900) Daughter in at bedside for quick visit before heading home. Ryan VILLELA 1999) Patient meets PACU dc criteria. She will be a boarder here in PACU due to hospital census. Ryan VILLELA 2029) Handing off to Rylie VILLELA for the remainder of night care. Ryan RN documented in this encounter H&P Notes * Monique Spivey MD - 09/28/2023 12:50 PM EDT Surgery Interval H&P ID: Blanca Lujan is a 67 y.o. female with a history of colon cancer who is here for laparoscopic assisted right hemicolectomy and cystoscopy with temporary stent with urology. No changes in health since her last clinic visit with Dr. Garcia on 09/09/23. Physical Exam No data found. Gen: NAD, A&O Cardiac: Regular rate Pulm: Unlabored on RA Abd: Soft, NTND Ext:Well perfused extremities Site marking: NA A/P: Blanca Lujan is a 67 y.o. female who presents for the reasons listed above. Procedure and risks have been explained to the patient including bleeding, infection, leak, recurrence, damage to surrounding structures and need for additional procedures. All questions were answered. Informed consent has been obtained in clinic on 09/09/23. Pt is ready for the OR. Monique Spivey MD 09/28/2023 12:51 PM Associated attestation - Ariana Garcia MD - 09/28/2023 1:45 PM EDT No changes to HPI, PMH, PSH, MEDS, CC since last exam Aaox3, nad EOMI, ERRLA RRR Non labored breathing abd s/nt/nd Ext no cyanosis or edema Ok to proceed with case as scheduled. * Bennie Smith MD - 09/28/2023 12:17 PM EDT Urology H&P ID: Blanca Lujan is a 67 y.o. female with T4 N0 M1 colon cancer (associated with either the cecum, appendix versus ileum as primary origin) s/p NAC who presents today for a laparoscopic ileal colonic colectomy/with en bloc resection of surrounding tissues with primary anastomosis . No reported urologic history. No hx of UTI or kidney stone. No system abnormality on recent CT No past medical history on file. Past Surgical History: Procedure Laterality Date IR MEDIPORT PLACEMENT 04/14/2023 IR Mediport Placement 04/14/2023 David Bower, DO [facility] INTERVENTIONL RAD PRO COLONOSCOPY, BIOPSY N/A 03/16/2023 COLONOSCOPY FLEXIBLE, WITH BX (WRVU 3.56) performed by Shilo Lopez MD at [facility] ENDOSCOPY PRO UNLISTED PX RECTUM N/A 03/16/2023 LOWER EUS- ENDOSCOPIC ULTRASOUND (WRVU 7.56) performed by Shilo Lopez MD at [facility] ENDOSCOPY PRO UPGI ENDOSCOPY W/US FN BX 03/16/2023 EGD, W US GUIDED FINE NEEDLE ASPIRATION/BIOPSY (WRVU 4.16) performed by Shilo Lopez MD at [facility] ENDOSCOPY No data found. NAD, A&O Regular rate, normal S1, S2, no murmurs, rubs, gallops Unlabored, clear to auscultation bilateral Soft, NTND Well perfused extremities A/P: Blanca Lujan is a 67 y.o. female who presents for the reasons listed above. Procedure and risks have been explained to the patient and all questions were answered. Informed consent has been obtained. Pt is ready for the OR for Urology. Perioperative antibiotics per primary team. Bennie Smith MD documented in this encounter Miscellaneous Notes * Plan of Care - Kell Marquez RN - 10/04/2023 11:39 AM EDT AVS summary reviewed with Pt and daughter, Pt and daughter verbalized understanding of discharge summary, Pt asked appropriate questions, Lovenox teaching video watched by pt and daughter, both verbalized understanding. PIV x1 removed. Pt brought to entrance 2 in wheelchair with belongings present by mobility tech. CARE PLAN GOAL OUTCOME EVALUATION: Complete Problem: Infection Goal: Absence of Infection Signs and Symptoms Outcome: Ongoing (Interventions Implemented as Appropriate) Intervention: Prevent or Manage Infection Flowsheets Taken 10/04/2023799 by Kell Marquez RN Fever Reduction/Comfort Measures: lightweight clothing lightweight bedding Isolation Precautions: protective environment maintained Taken 10/02/20231946 by Pattie Cyr RN Infection Management: aseptic technique maintained Problem: Pain Acute Goal: Acceptable Pain Control and Functional Ability Outcome: Ongoing (Interventions Implemented as Appropriate) Intervention: Develop Pain Management Plan Flowsheets (Taken 10/03/2023 2100 by Diogenes Soni RN) Pain Management Interventions: pain management plan reviewed with patient/caregiver position adjusted Intervention: Prevent or Manage Pain Flowsheets (Taken 10/04/2023799) Bowel Elimination Promotion: adequate fluid intake promoted Medication Review/Management: medications reviewed Sensory Stimulation Regulation: auditory stimulation minimized quiet environment promoted Sleep/Rest Enhancement: awakenings minimized relaxation techniques promoted Intervention: Optimize Psychosocial Wellbeing Flowsheets (Taken 10/04/2023799) Diversional Activities: smartphone television Spiritual Activities Assistance: affirmation provided Supportive Measures: active listening utilized self-care encouraged Problem: Fall Injury Risk Goal: Absence of Fall and Fall-Related Injury Outcome: Ongoing (Interventions Implemented as Appropriate) Intervention: Identify and Manage Contributors Flowsheets (Taken 10/04/2023799) Medication Review/Management: medications reviewed Self-Care Promotion: independence encouraged Intervention: Promote Injury-Free Environment Flowsheets (Taken 10/04/2023799) Safety Promotion/Fall Prevention: activity supervised clutter free environment maintained nonskid shoes/slippers when out of bed safety round/check completed Problem: Adult Inpatient Plan of Care Goal: Plan of Care Review Outcome: Ongoing (Interventions Implemented as Appropriate) Goal: Patient-Specific Goal (Individualized) Outcome: Ongoing (Interventions Implemented as Appropriate) Goal: Absence of Hospital-Acquired Illness or Injury Outcome: Ongoing (Interventions Implemented as Appropriate) Intervention: Identify and Manage Fall Risk Flowsheets (Taken 10/04/2023799) Safety Promotion/Fall Prevention: activity supervised clutter free environment maintained nonskid shoes/slippers when out of bed safety round/check completed Intervention: Prevent Skin Injury Flowsheets (Taken 10/04/2023799) Body Position: position changed independently Intervention: Prevent and Manage VTE (Venous Thromboembolism) Risk Flowsheets (Taken 10/04/2023799) VTE Prevention/Management: anticoagulant therapy Intervention: Prevent Infection Flowsheets (Taken 10/04/2023799) Infection Prevention: cohorting utilized environmental surveillance performed hand hygiene promoted rest/sleep promoted single patient room provided Goal: Optimal Comfort and Wellbeing Outcome: Ongoing (Interventions Implemented as Appropriate) Intervention: Provide Person-Centered Care Flowsheets (Taken 10/04/2023799) Trust Relationship/Rapport: care explained choices provided empathic listening provided questions encouraged thoughts/feelings acknowledged Goal: Readiness for Transition of Care Outcome: Ongoing (Interventions Implemented as Appropriate) * Care Management Discharge - Maria Victoria Mckeon RN - 10/04/2023 9:32 AM EDT CARE MANAGEMENT FINAL DISCHARGE NOTE Chart reviewed, care reviewed with primary team and at interdisciplinary rounds. Patient is medically ready for discharge to home w/ FWW, no other needs. Needs for Transition of Care: Plan for discharge is: Home w/o Services Outpatient Agency/Support Group Needs: None Transportation: family or friend will provide Functional status prior to admission: Independent Home Environment: Others in the home: child(brenton), adult (staying with adult daughter). Current Living Arrangements: home/apartment/condo. Accessibility Concerns:single story house, no KALIA. Current Functional Ability: Independent, Assistive Equipment DME used at home: oxygen (CPAP via [employer]) DME Needed at Discharge: Ambulatory Support Needs: Walker - Front Wheeled Provider: [facility] Delivery: Hosp Room Patient is insured through: Primary Insurance: MEDICARE Payor: MEDICARE / Plan: MEDICARE PART A & B / Product Type: *No Product type* / Secondary Insurance: N/A Prescription Coverage: Yes This plan was formulated with input from patient and team. All are in agreement with plan. Maria Victoria Mckeon RN-BSN-CM Pager: [phone] * Plan of Care - Diogenes Soni RN - 10/04/2023 4:15 AM EDT OUTCOME EVALUATION NOTE: OUTCOME SUMMARY: A&Ox4, VSS on RA while awake, patient wears home CPAP while sleeping. Pain controlled with scheduled tylenol. Patient requests PM meds early to allow her to go to sleep early. Very pleasant patient, expresses excitement for discharge. Patient up independently to toilet to void. Laparoscopic abdominal incisions with dermabond, CDI. Patient able to rest/sleep between care. Will continue to monitor and update MD as needed. PLAN MOVING FORWARD: Vitals Q6 while awake Daily weight Strict I&O Q4 Encourage ambulation/OOB Discharge planning INDIVIDUALIZED FALL PREVENTION INTERVENTIONS: Patient-specific fall risk factors per assessment: [current deficits]: generalized weakness, recentsurgical procedure, unfamiliar environment Assistance [level of assistance required for transfers and ambulation]: independent Supervision [direct monitoring required during toileting and ADLs]: independent Surveillance [continuous indirect monitoring]: room near nurses station, purposeful rounding Patient-specific fall prevention interventions for sensory deficits provided, if applicable: [X] Yes call tena within reach, non-slip socks when OOB, bed in low position, personal items within reach CARE PLAN GOAL OUTCOME EVALUATION: Ongoing Problem: Infection Goal: Absence of Infection Signs and Symptoms Outcome: Ongoing (Interventions Implemented as Appropriate) Problem: Pain Acute Goal: Acceptable Pain Control and Functional Ability Outcome: Ongoing (Interventions Implemented as Appropriate) Problem: Fall Injury Risk Goal: Absence of Fall and Fall-Related Injury Outcome: Ongoing (Interventions Implemented as Appropriate) Problem: Adult Inpatient Plan of Care Goal: Plan of Care Review Outcome: Ongoing (Interventions Implemented as Appropriate) Goal: Patient-Specific Goal (Individualized) Outcome: Ongoing (Interventions Implemented as Appropriate) Goal: Absence of Hospital-Acquired Illness or Injury Outcome: Ongoing (Interventions Implemented as Appropriate) Goal: Optimal Comfort and Wellbeing Outcome: Ongoing (Interventions Implemented as Appropriate) Goal: Readiness for Transition of Care Outcome: Ongoing (Interventions Implemented as Appropriate) * Plan of Care - Teresa Mann RN - 10/03/2023 11:53 AM EDT Images from the original note were not included. Patient remains A x O x 4, dizziness improving per pt report, on room air maintaining O2 sats >95%, SBP in the 150's, PRN labetalol and hydralazine not required this shift, pain control satisfactory. Diet advanced to Low residue/ regular, pt denies of nausea, 1 episode of diarrhea this shift, stool dark brown. Abdomen rounded, bowel sounds audible, midline incision and lap sites c/d/I, well approximated with no redness drainage or swelling noted. IV fluids, Wells discontinued at 0920, voidedspontaneously afterwards. Ambulated unit x 4 laps without walker, gait steady. Problem: Infection Goal: Absence of Infection Signs and Symptoms Outcome: Ongoing (Interventions Implemented as Appropriate) Problem: Pain Acute Goal: Acceptable Pain Control and Functional Ability Outcome: Ongoing (Interventions Implemented as Appropriate) Problem: Fall Injury Risk Goal: Absence of Fall and Fall-Related Injury Outcome: Ongoing (Interventions Implemented as Appropriate) Problem: Adult Inpatient Plan of Care Goal: Plan of Care Review Outcome: Ongoing (Interventions Implemented as Appropriate) Goal: Patient-Specific Goal (Individualized) Outcome: Ongoing (Interventions Implemented as Appropriate) Goal: Absence of Hospital-Acquired Illness or Injury Outcome: Ongoing (Interventions Implemented as Appropriate) Goal: Optimal Comfort and Wellbeing Outcome: Ongoing (Interventions Implemented as Appropriate) Goal: Readiness for Transition of Care Outcome: Ongoing (Interventions Implemented as Appropriate) * Plan of Care - Pattie Cyr RN - 10/03/2023 4:54 AM EDT OUTCOME EVALUATION NOTE: OUTCOME SUMMARY: Patient is AAOx4 with coherent speech on RA. No acute distress noted at this current time with reports of mild abdominal discomfort reported. Patient remained with an elevated blood pressure that slightly resolved, will continue to monitor BP fluctuation. Wound remain CDI. Patient slept throughout the night with C-pap machine and SPO2 remains WNL. Medication administered as ordered. PLAN MOVING FORWARD: I&O's continued Wound assessment Pain mgmt D/C plans pending INDIVIDUALIZED FALL PREVENTION INTERVENTIONS: Patient-specific fall risk factors per assessment: [current deficits]: Need assistance getting OOB,Pain mgmt Assistance [level of assistance required for transfers and ambulation]: Abdominal pain, Walker usage Supervision [direct monitoring required during toileting and ADLs]: Arms Reach Surveillance [continuous indirect monitoring]: Hourly rounding, bed alarm, room near nursing station, call light in reach. Patient-specific fall prevention interventions for sensory deficits provided, if applicable: [X] Yes CARE PLAN GOAL OUTCOME EVALUATION: Problem: Infection Goal: Absence of Infection Signs and Symptoms Outcome: Ongoing (Interventions Implemented as Appropriate) Problem: Pain Acute Goal: Acceptable Pain Control and Functional Ability Outcome: Ongoing (Interventions Implemented as Appropriate) Problem: Fall Injury Risk Goal: Absence of Fall and Fall-Related Injury Outcome: Ongoing (Interventions Implemented as Appropriate) Problem: Adult Inpatient Plan of Care Goal: Plan of Care Review Outcome: Ongoing (Interventions Implemented as Appropriate) Goal: Patient-Specific Goal (Individualized) Outcome: Ongoing (Interventions Implemented as Appropriate) Goal: Absence of Hospital-Acquired Illness or Injury Outcome: Ongoing (Interventions Implemented as Appropriate) Goal: Optimal Comfort and Wellbeing Outcome: Ongoing (Interventions Implemented as Appropriate) Goal: Readiness for Transition of Care Outcome: Ongoing (Interventions Implemented as Appropriate) * Plan of Care - Teresa Mann RN - 10/02/2023 4:49 PM EDT Patient remains A x O x 4, intermittent complaints of dizziness while turning in bed, on room air maintaining O2 sats >95%, BP remains elevated, PRN labetalol and hydralazine administered as ordered, pain control satisfactory. Intermittent episodes of nausea, PRN zofran administered as ordered, 1episode of diarrhea this afternoon, stool liquid and dark green. NGT clamped x 4hrs then removed by MD. Diet advanced to clear liquids, pt endorsing moderate levels of nausea, MD notified via page. Abdomen rounded, bowel sounds audible, midline incision and lap sites c/d/I, well approximated with no drainage noted, wells in place, UOP adequate. Ambulated unit x 4 laps with walker. Potassium repleted, magnesium repleted per orders. PIVs discontinued, new 22 G to L lateral forearm placed by IV team. Problem: Infection Goal: Absence of Infection Signs and Symptoms Outcome: Ongoing (Interventions Implemented as Appropriate) Problem: Pain Acute Goal: Acceptable Pain Control and Functional Ability Outcome: Ongoing (Interventions Implemented as Appropriate) Problem: Fall Injury Risk Goal: Absence of Fall and Fall-Related Injury Outcome: Ongoing (Interventions Implemented as Appropriate) Problem: Adult Inpatient Plan of Care Goal: Plan of Care Review Outcome: Ongoing (Interventions Implemented as Appropriate) Flowsheets (Taken 10/02/2023 [id number]) Plan of Care Reviewed With: patient Progress: improving Goal: Patient-Specific Goal (Individualized) Outcome: Ongoing (Interventions Implemented as Appropriate) Goal: Absence of Hospital-Acquired Illness or Injury Outcome: Ongoing (Interventions Implemented as Appropriate) Goal: Optimal Comfort and Wellbeing Outcome: Ongoing (Interventions Implemented as Appropriate) Goal: Readiness for Transition of Care Outcome: Ongoing (Interventions Implemented as Appropriate) * Plan of Care - Pattie Cyr RN - 10/02/2023 6:30 AM EDT Problem: Infection Goal: Absence of Infection Signs and Symptoms Outcome: Unable to achieve outcome by discharge Problem: Pain Acute Goal: Acceptable Pain Control and Functional Ability Outcome: Unable to achieve outcome by discharge Problem: Fall Injury Risk Goal: Absence of Fall and Fall-Related Injury Outcome: Unable to achieve outcome by discharge Problem: Adult Inpatient Plan of Care Goal: Plan of Care Review Outcome: Unable to achieve outcome by discharge Goal: Patient-Specific Goal (Individualized) Outcome: Unable to achieve outcome by discharge Goal: Absence of Hospital-Acquired Illness or Injury Outcome: Unable to achieve outcome by discharge Goal: Optimal Comfort and Wellbeing Outcome: Unable to achieve outcome by discharge Goal: Readiness for Transition of Care Outcome: Unable to achieve outcome by discharge * Plan of Care - Pattie Cyr RN - 10/02/2023 6:29 AM EDT OUTCOME EVALUATION NOTE: OUTCOME SUMMARY: Patient is AAOx4 with coherent speech on RA. No acute distress noted at this current time with reports of moderate abdominal discomfort reported. Patient remained with an elevated blood pressure thatslightly resolved, will continue to monitor BP fluctuation. NGT remain on low suction continuously with output noted. Wound remain CDI. Patient slept throughout the night without C-pap machine and SPO2 remains WNL. Medication administered as ordered. PLAN MOVING FORWARD: I&O's continued Wound assessment Pain mgmt NGT low suction continuously D/C plans pending INDIVIDUALIZED FALL PREVENTION INTERVENTIONS: Patient-specific fall risk factors per assessment: [current deficits]: Need assistance getting OOB,Pain mgmt Assistance [level of assistance required for transfers and ambulation]: Abdominal pain, Walker usage Supervision [direct monitoring required during toileting and ADLs]: Arms Reach Surveillance [continuous indirect monitoring]: Hourly rounding, bed alarm, room near nursing station, call light in reach. Patient-specific fall prevention interventions for sensory deficits provided, if applicable: [X] Yes CARE PLAN GOAL OUTCOME EVALUATION: * Plan of Care - Teresa Mann RN - 10/01/2023 2:57 PM EDT OUTCOME EVALUATION NOTE: OUTCOME SUMMARY: Patient remains A x O x 4, intermittent complaints of dizziness, on room air maintaining O2 sats >95%, BP remains elevated, PRN labetalol and hydralazine administered as ordered, pain control satisfactory. Intermittent episodes of nausea, PRN zofran administered as ordered, 2 episodes of diarrhea this afternoon, stool liquid and dark green, MD notified at bedside, no stool sample need at this time, NGT to R nare remains in place, output dark green, abdomen distended, bowel sounds audible, midline incision and lap sites c/d/I, well approximated with no drainage noted, wells placed this am per MD order, 500cc bolus administered per order, UOP adequate. Ambulated unit x 1 lap with walker. PLAN MOVING FORWARD: BP control per parameters Pain control, Possible removal of NGT per MD INDIVIDUALIZED FALL PREVENTION INTERVENTIONS: Patient-specific fall risk factors per assessment: [current deficits]: Needs assistance OOB Assistance [level of assistance required for transfers and ambulation]: Abdominal pain, walker usage Supervision [direct monitoring required during toileting and ADLs]: Arms reach, abdominal precautions Surveillance [continuous indirect monitoring]: Room near nursing station, call light within reach Patient-specific fall prevention interventions for sensory deficits provided, if applicable: [X] Yes CARE PLAN GOAL OUTCOME EVALUATION: Problem: Infection Goal: Absence of Infection Signs and Symptoms Outcome: Ongoing (Interventions Implemented as Appropriate) Problem: Pain Acute Goal: Acceptable Pain Control and Functional Ability Outcome: Ongoing (Interventions Implemented as Appropriate) Problem: Fall Injury Risk Goal: Absence of Fall and Fall-Related Injury Outcome: Ongoing (Interventions Implemented as Appropriate) Problem: Adult Inpatient Plan of Care Goal: Plan of Care Review Outcome: Ongoing (Interventions Implemented as Appropriate) Goal: Patient-Specific Goal (Individualized) Outcome: Ongoing (Interventions Implemented as Appropriate) Goal: Absence of Hospital-Acquired Illness or Injury Outcome: Ongoing (Interventions Implemented as Appropriate) Goal: Optimal Comfort and Wellbeing Outcome: Ongoing (Interventions Implemented as Appropriate) Goal: Readiness for Transition of Care Outcome: Ongoing (Interventions Implemented as Appropriate) * Care Management - Maria Victoria Mckeon RN - 10/01/2023 10:04 AM EDT OFFICE OF CARE MANAGEMENT PROGRESS NOTE LOS: Hospital Day 3 days Chart reviewed, care reviewed with primary team and at interdisciplinary rounds. Patient continues to meet inpatient level of care related to: BP management, pain management, hemodynamic monitoring/management, electrolyte replacement/management, and gastric decompression needs. Decision Maker: Self Functional status prior to admission: Independent Home Environment: Others in the home: child(brenton), adult (staying with adult daughter). Current Living Arrangements: home/apartment/condo. Accessibility Concerns: single story house, no KALIA. Current Functional Ability: Assistive Person and Equipment DME used at home: oxygen (CPAP via [facility]) DME Needed at Discharge: No Patient is insured through: Primary Insurance: MEDICARE Payor: MEDICARE / Plan: MEDICARE PART A & B / Product Type: *No Product type* / Secondary Insurance: N/A Last Occupational Therapy Recommendation: home with supervision with None Plan for discharge is: Home w/o Services Outpatient Agency/Support Group Needs: None Transportation: family or friend will provide Barriers to discharge: Discharge planning Plan going forward: Continuing BP control, pain control, electrolyte replacement, and NGT - ileus/AROBF. Wells replaced for low UOP - bolus. PT to evaluate. Anticipated d/c to home early next week w/o services, no needs pending PT recs. Care Management will continue to follow and assist with discharge planning and coordination of care as indicated. Anticipated Date of Discharge: 10/04/2023 Maria Victoria Mckeon RN-BSN-CM Pager: [phone] * Plan of Care - Pattie Cyr RN - 10/01/2023 2:46 AM EDT OUTCOME EVALUATION NOTE: OUTCOME SUMMARY: Patient is AAOx4 with coherent speech on RA. No acute distress noted at this current time with reports of abdominal discomfort reported. Patient remained with an elevated blood pressure that slightlyresolved, will continue to monitor BP fluctuation, MD Crowe) aware. NGT remain on low suction continuously with output noted. Wound remain CDI. Patient slept throughout the night without C-pap machine and SPO2 remains WNL. Medication administered as ordered. PLAN MOVING FORWARD: I&O's continued Wound assessment Pain mgmt NGT low suction continuously D/C plans pending INDIVIDUALIZED FALL PREVENTION INTERVENTIONS: Patient-specific fall risk factors per assessment: [current deficits]: Need assistance getting OOB,Pain mgmt Assistance [level of assistance required for transfers and ambulation]: Abdominal pain, Walker usage Supervision [direct monitoring required during toileting and ADLs]: Arms Reach Surveillance [continuous indirect monitoring]: Hourly rounding, bed alarm, room near nursing station, call light in reach. Patient-specific fall prevention interventions for sensory deficits provided, if applicable: [X] Yes CARE PLAN GOAL OUTCOME EVALUATION: Problem: Infection Goal: Absence of Infection Signs and Symptoms Outcome: Ongoing (Interventions Implemented as Appropriate) Problem: Pain Acute Goal: Acceptable Pain Control and Functional Ability Outcome: Ongoing (Interventions Implemented as Appropriate) Problem: Fall Injury Risk Goal: Absence of Fall and Fall-Related Injury Outcome: Ongoing (Interventions Implemented as Appropriate) Problem: Adult Inpatient Plan of Care Goal: Plan of Care Review Outcome: Ongoing (Interventions Implemented as Appropriate) Goal: Patient-Specific Goal (Individualized) Outcome: Ongoing (Interventions Implemented as Appropriate) Goal: Absence of Hospital-Acquired Illness or Injury Outcome: Ongoing (Interventions Implemented as Appropriate) Goal: Optimal Comfort and Wellbeing Outcome: Ongoing (Interventions Implemented as Appropriate) Goal: Readiness for Transition of Care Outcome: Ongoing (Interventions Implemented as Appropriate) * Initial Assessments - Roberto Goode, OT - 09/30/2023 10:45 AM EDT Occupational Therapy Evaluation Patient profile: Per MD: Blanca Lujan is a 67 y.o. female admitted on 09/28/2023 for a known history of stage IV T4 NX M1 colon cancer with evidence of peritoneal disease who underwent preoperative adjuvant treatment. 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 Patient underwent preoperative neoadjuvant treatment withFOLFOX, CEA decreased from 16-2. She presents for elective laparoscopic assisted right hemicolectomy with anastomosis with temporary right stent placement. Procedures: 09/28/23 - Hand-assisted laparoscopic right hemicolectomy with primary anastomosis, right temporary ureteral stent. History reviewed. No pertinent past medical history. Past Surgical History: Procedure Laterality Date IR MEDIPORT PLACEMENT 04/14/2023 IR Mediport Placement 04/14/2023 David Bower, [facility] INTERVENTIONL RAD PRO COLONOSCOPY, BIOPSY N/A 03/16/2023 COLONOSCOPY FLEXIBLE, WITH BX (WRVU 3.56) performed by Shilo Lopez MD at [facility] ENDOSCOPY PRO CYSTOSCOPY, INSERT URETERAL STENT Right 09/28/2023 CYSTO, STENT PLACEMENT INTRAOP, TEMPORARY (WRVU 2.82) performed by Shon Lewis MD at [facility] MAIN OR PRO LAP, SURG, COLECTOMY, W/REMVL TERM ILEUM N/A 09/28/2023 @LAPAROSCOPIC ASSISTED COLECTOMY, PARTIAL, REM.TERMINAL ILEUM (WRVU 22.95) performed by Ariana Garcia MD at [facility] MAIN OR PRO UNLISTED LAPAROSCOPIC PROC ABD PERITONEUM & OMENTUM N/A 09/28/2023 LAPAROSCOPIC PARTIAL OMENTECTOMY (WRVU 15.67) performed by Ariana Garcia MD at [facility] MAIN OR PRO UNLISTED PX RECTUM N/A 03/16/2023 LOWER EUS- ENDOSCOPIC ULTRASOUND (WRVU 7.56) performed by Shilo Lopez MD at [facility] ENDOSCOPY PRO UPGI ENDOSCOPY W/US FN BX 03/16/2023 EGD, W US GUIDED FINE NEEDLE ASPIRATION/BIOPSY (WRVU 4.16) performed by Shilo Lopez MD at [facility] ENDOSCOPY Social History: Patient lives with daughter in 1 level house with no steps to enter. Daughter is an in-home provider so pt is feeling safe to return home Home Setup: all needs on 1 level including bathroom and bedroom. Has walk in shower with shower seat and grab bars throughout bathroom. DME: Walker, shower chair, grab bars Baseline ADL/Mobility: IND with all ADLs/IADLs. Pt drives and performs all necessary tasks prior hospitalization. Precautions/Special Considerations: Abdominal precautions (bending, lifting, twisting) Subjective: I'm really uncomfortable Objective: Seen today for OT evaluation. Cognitive Status/Behavior: Behavior / Mood: alert, cooperative, and flat affect Alert and oriented to: person, place, time, and situation Follows commands: multi step and 100% of the time Attention: WFL Safety awareness: WFL Flat affect and reserved emotion but warms up as session progresses. Vision & Perception: WNL / WFL and corrective lenses for reading Communication: WFL Range of motion, strength, coordination: Hand dominance: right Bilateral UEs are within functional limitations LE limitations: WFL, Unable to reach feet d/t bending precautions and current distended abdomen. Sensation: Intact on all extremities tested Activities of Daily Living: Self-feeding: IND Grooming: IND Dressing: Mod A LB dressing, IND UB dressing, DEP Footwear Bathing: Min A Toileting: Transfer: SUP Hygiene: IND Functional Mobility: Supine to sit: SPV -coaching for log roll Sit to stand: SBA - for safety Ambulation: SBA with FWW for safety Stand to sit: SBA Sit to supine: CGA to prevent stretching of abdomen Balance: Sitting balance: Normal Standing balance:Good+ Vitals: Tachycardic at rest At Rest With Activity SpO2 98% 98% Heart Rate 108 114 Blood Pressure NT NT Pain: I have pain all over, I'm just uncomfortable Skin: Intact with no bruising noted. Incision on abdomen Education: patient have been educated on Role of occupational therapy/rehabilitation, Adaptive equipment training, ADL, Positioning, Precautions/Protocol, Functional Mobility, Recommendations, and Discharge planning and verbalizes and demonstrates understanding. Patient status, treatment, and mobility recommendations discussed with nursing. Assessment: Pt has been seen for occupational therapy evaluation. Blanca Lujan presents with the following performance skill deficits and client factors: increased pain, decreased activity tolerance, decreased flexibility / ROM, body habitus, and compromised mobility status. These performance deficits have led to activity limitations and participation restrictions in the following areas of occupation: dressing, bathing, and community mobility. Pt mostly limited by trunk ROM, discomfort, andactivity tolerance. Pt demomstrating good ADL performance for hygiene and grooming but requires assist for LB cares. OT provided gas line installer and sock aide with good carryover within session. Will continue to follow throughout hospitalization to introduce AE as needed. Pt would benefit from further inpatient OT interventions to address performance deficits and maximize participation and independence with occupations of daily living. Pt appears safe to DC back home with supervision from daughter oncemedically ready. Equipment needs at discharge: None Anticipated Discharge Dispostion: home with supervision Other Recommendations: Utilize upright chair position using bed features or transfer to recliner chair as appropriate withFWW and CGA assist, ambulate as tolerated 3-4x/day Encourage participation in ADL's by providing set up A on tray table and physical assist only as needed and encourage independence with AE for ADLs Other Recommendations: No other consults recommended at this time. Goals: To be achieved by 10/08/23. - Pt will complete LB dressing with Modified Independent given any adaptive equipment necessary - Pt will complete grooming while standing at sink with Independent given any adaptive equipment necessary - Pt will complete a full bathing routine including txfr with Modified Independent given any adaptive equipment necessary - Pt will report 2/10 pain with functional activity Plan: OT: Therapy Frequency (OT): 1-2 more times Planned OT interventions: Role of occupational therapy/rehabilitation, Assistive device/technique, Adaptive equipment training, Exercise, Precautions/Protocol, Functional Mobility, Recommendations, and Discharge planning. Total Minutes, Occupational Therapy: 38 [id number]) 2017 OT Evaluation Code Rationale: Diagnosis & Pertinent Co-Morbidities affecting Plan of Care: see PMHx Occupational Profile & Client History: Brief Expanded Extensive x Assessment of Occupational Performance: 1-3 performance deficits x 3-5 performance deficits 5 + performance deficits Clinical Decision Making: Low Moderate High x Clinical decision making of low complexity using standardized patient assessment instrument and measurable assessment of functional outcome. Pager: [phone] Roberto Goode OT 09/30/2023 Occupational Therapy Rehabilitation Department * Plan of Care - Porsha Plasencia RN - 09/30/2023 6:43 AM EDT OUTCOME EVALUATION NOTE: OUTCOME SUMMARY: Pt A&Ox4, VSS. Pt SBP below 160 throughout shift-no labetalol given. Pt slightly tachy-MD aware. Pt had CPAP on throughout night. Pt urinated adequate amounts of urine-urine pink tinged. Pt sleptcomfortably throughout night until pt became nauseous. Pt vomited/gagged up phlegmy type secretions. Zofran given. Pt c/o pain and sub q dilaudid given. Pt given Yankauer to facilitate phlegm excretio ns. Pt denied numbness/tingling, SOB and chest pain. Pt midline incision clean dry and intact. Pt had a restful evening. PLAN MOVING FORWARD: -I&Os -VS monitoring -BP monitoring INDIVIDUALIZED FALL PREVENTION INTERVENTIONS: Patient-specific fall risk factors per assessment: [current deficits]: generalized weakness Assistance [level of assistance required for transfers and ambulation]: 1 assist w walker Supervision [direct monitoring required during toileting and ADLs]: 1 assist Surveillance [continuous indirect monitoring]: masimo, call light in reach, room near nurses station Patient-specific fall prevention interventions for sensory deficits provided, if applicable: [X] Yes CARE PLAN GOAL OUTCOME EVALUATION: * Plan of Care - Jennifer Gleason - 09/29/2023 5:14 PM EDT OUTCOME EVALUATION NOTE: OUTCOME SUMMARY: Received pt from PACU at 1615. A&Ox4, on RA, afebrile. BP high when we received her, in 180's/90's most likely due to pain. Pt walked from bed to door and back, tolerated well, no complaints of dizziness. Pt complains of nausea. Not passing flatus, but burping. Encouraged pt to chew gum, ambulate as tolerated with staff, and use incentive spirometer. PLAN MOVING FORWARD: Encourage ambulation Pain management Q4H VSWA Q4H strict I&O INDIVIDUALIZED FALL PREVENTION INTERVENTIONS: Patient-specific fall risk factors per assessment: [current deficits]: generalized weakness, recentsurgery, unfamiliar environment, increased pain, lines/drains Assistance [level of assistance required for transfers and ambulation]: 1x with FWW Supervision [direct monitoring required during toileting and ADLs]: arms reach Surveillance [continuous indirect monitoring]: purposeful rounding, masimo, call tena within reach,room near unit station Patient-specific fall prevention interventions for sensory deficits provided, if applicable: [X] Yes non-slip socks on when OOB, room free of clutter, lighting adjusted CARE PLAN GOAL OUTCOME EVALUATION: Problem: Infection Goal: Absence of Infection Signs and Symptoms Outcome: Ongoing (Interventions Implemented as Appropriate) Problem: Pain Acute Goal: Acceptable Pain Control and Functional Ability Outcome: Ongoing (Interventions Implemented as Appropriate) Problem: Fall Injury Risk Goal: Absence of Fall and Fall-Related Injury Outcome: Ongoing (Interventions Implemented as Appropriate) Problem: Adult Inpatient Plan of Care Goal: Plan of Care Review Outcome: Ongoing (Interventions Implemented as Appropriate) Goal: Patient-Specific Goal (Individualized) Outcome: Ongoing (Interventions Implemented as Appropriate) Goal: Absence of Hospital-Acquired Illness or Injury Outcome: Ongoing (Interventions Implemented as Appropriate) Goal: Optimal Comfort and Wellbeing Outcome: Ongoing (Interventions Implemented as Appropriate) Goal: Readiness for Transition of Care Outcome: Ongoing (Interventions Implemented as Appropriate) ' * Initial Assessments - Maria Victoria Mckeon RN - 09/29/2023 12:54 PM EDT Office of Care Management Initial Assessment Maria Victoria Mckeon RN reviewed record and discussed patient with Care Team. Source of Information: Team, bedside nurse, medical record, and Patient Introduced self/reviewed role; services accepted. Admitted From: Home Reason for Hospitalization: lap assisted right hemicolectomy with temporary R stent placement Covid Vaccination Status: 1st, 2nd & booster Past medical History: History reviewed. No pertinent past medical history. Hospitalizations Within the Past 30 Days: no previous admission in last 30 days Current Decision-Making Capacity: Self If AD's have not been completed the following surrogate would be surrogate decision maker per [place] surrogate decision making law. (Only good for 180 days) Any patient receiving care in [place] must abide by [place] law. The hierarchy for surrogate decision making is: (a) Patient???s spouse or civil union partner unless there is a divorce proceeding, separation agreement, or restraining order limiting that person???s relationship with the patient. (b) Any adult son or daughter of the patient. (c) Either parent of the patient. (d) Any adult brother or sister of the patient. (e) Any adult grandchild of the patient. (f) Any grandparent of the patient. (g) Any adult aunt, uncle, niece, or nephew of the patient. (h) A close friend of the patient. (i) The agent with financial power of commercial attorney or a conservator appointed in accordance with RSA 464-A. (j) The guardian of the patient???s estate. Advance Care Planning: Attempt Cardiopulmonary Resuscitation - Inpatient <no information> -Advanced Directive: No, need to discuss Current Coping/Education/Information Needs: denies needs at this time Current Functional Ability: Assistive Equipment and Assistive Person Functional Status Prior to Admission: Independent Prior ADLs & IADLs: Independent with all ADLs & IADLs Home Environment: Others in the home: child(brenton), adult (staying with adult daughter). Current Living Arrangements: home/apartment/condo. Accessibility Concerns:single story house, no KALIA. In the last 12 months, was there a time when you were not able to pay the mortgage or rent on time?: No In the last 12 months, was there a time when you did not have a steady place to sleep or slept in ashelter (including now)?: No In the past 12 months has the electric, gas, oil, or water company threatened to shut off services in your home?: No Within the past 12 months, you worried that your food would run out before you got the money to buymore.: Never true Within the past 12 months, the food you bought just didn't last and you didn't have money to get more.: Never true Resource / Environmental Concerns: Resource/Environmental Concerns: none In the past 12 months, has lack of transportation kept you from medical appointments or from getting medications?: No In the past 12 months, has lack of transportation kept you from meetings, work, or from getting things needed for daily living?: No Current DME: oxygen (CPAP via [employer]) Home Address confirmed as: Physical: [address] [facility] [address] Mailing: Otoniel [address] [address] Social & Family Supports: All names listed below confirmed with patient as current and correct Extended Emergency Contact Information Primary Emergency Contact: Kera Anne Mobile Relation: Child Current Care Provided by: self Provides Primary Care For: no one Caregiver if needed: child(brenton), adult Quality of Family relationships: helpful, involved, supportive Community Resources being provided currently: none Behavioral Health History: PTSD - smokes marijuana Substance Use/Abuse listed: Social History Tobacco Use Smoking Status Former Types: Cigarettes Smokeless Tobacco Never 0 No problems reported 1-2 Low level 3-5 Moderate level 6-8 Substantial level 9- 10 Severe level 0 to 7 points: Low risk 8 to 15 points: Medium risk 16 to 19 points: High risk 20 to 40 points: Addiction likely Other Pertinent/Service Specific Information: none Health/Prescription Coverage: Primary Insurance: MEDICARE Payor: MEDICARE / Plan: MEDICARE PART A & B / Product Type: *No Product type* / Secondary Insurance: N/A ONLY if patient has Medicare A&B - Does this patient have secondary insurance?: Yes (Medicaid [place] not on file - CONIFER notified to address) ; Prescription Coverage: Yes Preferred Pharmacy: [facility] [place], [place] - [address] [place] [id number] Status: Patient is a : No Primary Care Provider confirmed: Hina Johnson [phone] Patient/Caregiver Goals of Treatment: discharge to daughter's house Potential Needs for Transition of Care: none Agency Referrals: Not Applicable Transportation: no concerns Transportation Anticipated: family or friend will provide Concerns to be Addressed: denies needs/concerns at this time Assessment: Patient is admitted to Colorectal service for lap assisted right hemicolectomy with temporary R stent placement Plan: Continuing sips/chips diet, pain control, and Wells - low UOP. Weanng O2 and PT/OT to evaluate today. Anticipated d/c to home later this week w/o services, no needs. A member of the Care Management team will continue to monitor progress, follow for continuity of care and assist with transition of care planning. Maria Victoria Mckeon RN-BSN-CM Pager: [phone] * Plan of Care - Rosenda Dowd RN - 09/29/2023 11:29 AM EDT Problem: Infection Goal: Absence of Infection Signs and Symptoms 09/29/2023 1129 by Rosenda Dowd RN Outcome: Ongoing (Interventions Implemented as Appropriate) 09/29/2023 1128 by Rosenda Dowd RN Outcome: Ongoing (Interventions Implemented as Appropriate) Problem: Pain Acute Goal: Acceptable Pain Control and Functional Ability 09/29/2023 1129 by Rosenda Dowd RN Outcome: Ongoing (Interventions Implemented as Appropriate) 09/29/2023 1128 by Rosenda Dowd RN Outcome: Ongoing (Interventions Implemented as Appropriate) Problem: Fall Injury Risk Goal: Absence of Fall and Fall-Related Injury 09/29/2023 1129 by Rosenda Dowd RN Outcome: Ongoing (Interventions Implemented as Appropriate) 09/29/2023 1128 by Rosenda Dowd RN Outcome: Ongoing (Interventions Implemented as Appropriate) Problem: Adult Inpatient Plan of Care Goal: Plan of Care Review 09/29/2023 1129 by Rosenda Dowd RN Outcome: Ongoing (Interventions Implemented as Appropriate) 09/29/2023 1128 by Rosenda Dowd RN Outcome: Ongoing (Interventions Implemented as Appropriate) Goal: Patient-Specific Goal (Individualized) 09/29/2023 1129 by Rosenda Dowd RN Outcome: Ongoing (Interventions Implemented as Appropriate) 09/29/2023 1128 by Rosenda Dowd RN Outcome: Ongoing (Interventions Implemented as Appropriate) Goal: Absence of Hospital-Acquired Illness or Injury 09/29/2023 1129 by Rosenda Dowd RN Outcome: Ongoing (Interventions Implemented as Appropriate) 09/29/2023 1128 by Rosenda Dowd RN Outcome: Ongoing (Interventions Implemented as Appropriate) Goal: Optimal Comfort and Wellbeing 09/29/2023 1129 by Rosenda Dowd RN Outcome: Ongoing (Interventions Implemented as Appropriate) 09/29/2023 1128 by Rosenda Dowd RN Outcome: Ongoing (Interventions Implemented as Appropriate) Goal: Readiness for Transition of Care 09/29/2023 1129 by Rosenda Dowd RN Outcome: Ongoing (Interventions Implemented as Appropriate) 09/29/2023 1128 by Rosenda Dowd RN Outcome: Ongoing (Interventions Implemented as Appropriate) * Plan of Care - Rylie Siddiqui RN - 09/29/2023 5:22 AM EDT Problem: Adult Inpatient Plan of Care Goal: Plan of Care Review Outcome: Ongoing (Interventions Implemented as Appropriate) Goal: Patient-Specific Goal (Individualized) Outcome: Ongoing (Interventions Implemented as Appropriate) Goal: Absence of Hospital-Acquired Illness or Injury Outcome: Ongoing (Interventions Implemented as Appropriate) Goal: Optimal Comfort and Wellbeing Outcome: Ongoing (Interventions Implemented as Appropriate) Goal: Readiness for Transition of Care Outcome: Ongoing (Interventions Implemented as Appropriate) * Op Note - Bennie Smith MD - 09/28/2023 2:14 PM EDT [facility] [place] Patient Name: Blanca Lujan : [id number] MR#: [id number] Case Date: 09/28/2023 Surgeon: Surgeon(s) and Role: Panel 1: * Ariana Garcia MD - Primary * Monique Spivey MD - Resident - Assisting Panel 2: * Shon Lewis MD - Primary * Bennie Smith MD - Resident - Assisting Preoperative diagnosis: appendicitis Postoperative diagnosis: appendicitis Procedure(s) (LRB): @LAPAROSCOPIC ASSISTED COLECTOMY, PARTIAL, REM.TERMINAL ILEUM (WRVU 22.95) (N/A) LAPAROSCOPIC APPENDECTOMY (WRVU 9.45) (N/A) CYSTO, STENT PLACEMENT INTRAOP, TEMPORARY (WRVU 2.82) (Right) Findings: mild trigonitis otherwise normal cysto without evidence of malignancy or foreign bodies, uncomplicated placement of 5Fr pollock catheter as right sided temp ureteral stent Anesthesia: General Estimated Blood Loss: Specimens removed during surgery: None for this portion of procedure Drains: 5Fr pollock catheter as right ureteral stent Surgical Closure: no incision for this portion of procedure Disposition: to Colorectal Surgery team for planned procedure Condition: doing well without problems (Please see the Surgical Encounter Summary for any Implant and Specimen details pertinent to this patient.) HPI/Surgical Indications: Blanca Lujan is a 67 y.o. female with T4 N0 M1 colon cancer (associated with either the cecum, appendix versus ileum as primary origin) s/p NAC who presents today for a laparoscopic ileal colonic colectomy/with en bloc resection of surrounding tissues with primary anastomosis . Procedure Description: The patient was identified in the pre-operative holding area. Consent was verified. The patient was taken to the operating room and placed supine on the operating table. General anesthesia was induced. The patient was then moved to the lithotomy position and prepped and draped in the usual sterile fashion. A timeout was performed involving all members of the OR team confirming the patient's identity and planned procedure. Preoperative antibiotics were administered. A 22 Fr rigid cystoscope was inserted into the bladder. A 360 degree visual inspection of the bladder with 30-degree lens revealed a some trigonitis but otherwise grossly normal bladder without tumors, foreign bodies, or stones. The ureteral orifices were noted to be in orthotopic position. A 5 Fr Pollack catheter was passed without difficulty into the right ureteral orifice without issues . The bladder was emptied. The cystoscope was removed. A [place] catheter was secured to a 16Fr Eliseo's catheter. Ten mL of water were used to inflate the balloon. The case was turned over to Colorectal Surgery to continue with their procedure. The patient tolerated the procedure well. There were no complications. Dr. Lewis, the attending surgeon, was present for the entire procedure. Surgical Infection Prevention Bundle Used? No Associated attestation - Shon Lewis MD - 09/29/2023 7:17 AM EDT Attestation: Case Date: 09/28/2023 I was present and I participated during the entire procedure (does not need to include opening and closing). Shon Lewis MD 09/29/2023 * Op Note - Ariana Garcia MD - 09/28/2023 2:14 PM EDT [facility] [place] Patient Name: Blanca Lujan : [id number] MR#: [id number] Case Date: 09/28/2023 Surgeon: Surgeon(s) and Role: Panel 1: * Ariana Garcia MD - Primary * Monique Spivey MD - Resident - Assisting * Serjio Soriano MD - Resident - Assisting Panel 2: * Shon Lewis MD - Primary * Bennie mSith MD - Resident - Assisting Preoperative diagnosis: appendicitis Colon cancer Postoperative diagnosis: appendicitis Colon cancer Procedure(s) (LRB): @LAPAROSCOPIC ASSISTED COLECTOMY, PARTIAL, REM.TERMINAL ILEUM (WRVU 22.95) (N/A) CYSTO, STENT PLACEMENT INTRAOP, TEMPORARY (WRVU 2.82) (Right) LAPAROSCOPIC PARTIAL OMENTECTOMY (WRVU 15.67) (N/A) Anesthesia: General Estimated Blood Loss: 30 mL Specimens removed during surgery: Order Name Source Comment Collection Info Order Time SPECIMEN TO PATHOLOGY Perforated cecal cancer with preoperative chemo therapy Right Colon excision 09/28/2023 4:23 PM Time specimen removed from patient: 4:15 PM Number of tissue samples (in container) 1 SPECIMEN TO PATHOLOGY Perforated Cecal Cancer and Preoperative Chemotherapy Iloececal anastomosis excision 09/28/2023 4:25 PM Time specimen removed from patient: 4:24 PM Number of tissue samples (in container) 1 PATHOLOGY ORDER UPDATE 09/28/2023 4:34 PM Additional information: Correction Enter requested changes: Ileocolic anastomosis eD-H Order Id number [id number] Drains: * No LDAs found * Surgical Closure: Primary Closure - skin incision is completely closed without any wires, deloris, drains or other devices Disposition: awakened from anesthesia, extubated and taken to the recovery room in a stable condition, having suffered no apparent untoward event. Condition: doing well without problems (Please see the Surgical Encounter Summary for any Implant and Specimen details pertinent to this patient.) HPI/Surgical Indications: Patient is a 67-year-old female with a known history of stage IV T4 NX I1rpyse cancer with evidence of peritoneal disease who underwent preoperative adjuvant treatment. 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 Patient underwent preoperative neoadjuvant treatment with FOLFOX, CEA decreased from 16-2. Patient presents today for definitive removal. Operative findings: Very difficult case please place modifier greater [...] hemicolectomy - ileocolic, right colic (if present) Procedure Description: After appropriate identification and obtaining informed consent in the pre-op holding area, the patient was brought to the operating room placed supine on the operating table where general anesthesia was induced. IV antibiotics and pharmacologic VTE prophylaxis were administered and SCD's were applied. The patient was transferred to modified lithotomy position and all pressure points were well padded. Both arms were tucked at the patient's sides. A tap block was performedby anesthesia. A surgical safety time out was performed and all present were in agreement. Urology was present and placed right-sided ureteral stent under direct vision and will be dictated separately. The patient was then prepped and draped in the usual sterile fashion. A small 4 cm incision made at supraumbilical carried down to the fascia. Fascia was opened sharply.5 mm ports were placed under direct vision, 4 in total, 1 in the subxiphoid position and 1 in the left upper quadrant right upper quadrant and suprapubic position. The GelPort was placed and the abdomen was insufflated to 15 mm of pressure. At this point dissection was carried out in the right upper quadrant mobilizing the hepatocolic ligaments from a lateral to medial position and the lateral attachments were mobilized. This portion ofthe dissection was remarkably difficult as the omentum was thickened, the liver was prominent with the gallbladder and the patient had a very short hepatic flexure tethering to the duodenum. This dissection portion took 200% as long as usual to dissect free and gently resect the plane the proximal transverse colon from the hepatocolic ligaments. Hemostasis was well-controlled. The duodenum was identified and avoided. The entire right colon was mobilized. Once the entire right colon was mobilized we proceeded to dissect down along the ascending colon. At this point due to the patient's previous tumor and tethering of the appendiceal inflammatory malignant process to the right lower quadrant we approach from the ileum. Visualization was performed and scoring and the along the peritoneal lining of the base of the ileal colic artery was performed from the medial side. The right ureter was identified and avoided. Dissection was carried down at the base of the retroperitoneum under the ileocolic bundle. Once this was completely mobilized we were able to use the LigaSure and released the peritoneum and resect the attachments to the pelvic sidewall. We also used the LigaSure tomobilize the omentum and a right-sided partial omentectomy was performed we also mobilized an omental flap. Specimen was kept intact. The distal ileum was transected using a PASQUALE 75 staple load makinga window in the mesentery. We then performed the ascending colon transection using a PASQUALE 75 staplerthrough the GelPort. After these were transected intracorporeal dissection was proceeded. Again dissection was carried down to the base the mesentery. At this point a 12 port was placed in the GelPort and the window was made at the base of the ileocolic artery. This was transected using a 35mm vascu lar load stapler. The rest of the dissection was performed with the LigaSure intracorporeally and the specimen was removed intact decision was made to extracorporealized the specimen. The mesentery was taken using the LigaSure for hemostasis. High ligation of the ileocolic was performed. The specimen was removed intact through the laparoscopic port. We then proceeded with dissection and mobilizedthe right colic artery which was taken at the base. After complete mobilization of the colon and the ileum and anastomosis was performed. Sterile technique was used to create a [id number], functional end-to-end anastomosis. An enterotomy was made in the proximal transverse colon and the distal ileum. Using a PASQUALE 100 with a blue load along the vertical staple line, a single firing was performed and the staple line was evaluated for hemostasis. A second stapler, 100 PASQUALE blue load was used to close the common channel along the horizontal staple line. There is no bleeding at the staple line. The mesenteric defect was closed with interrupted 3-0 Vicryl suture. The abdomen was irrigated there is no evidence of twisting or bleeding.The specimen was sent as a second specimen labeled ileocolic anastomosis. The abdomen was reinsufflated and inspected, and no twisting of the mesentery or other complications were evident. The abdomen was the irrigated and drained. Instruments were removed from the field including the GelPort whichwas used as a wound protector. All ports were removed and the specimen was passed off. We then mobilized the flap and placed the omental flap over the specimen the right lower quadrant. Gown and gloves were changed and clean instruments were used for closing. Clean towels were used, clean Bovie and a separate instrument tray. The midline port site was closed with 1-0 PDS. The subcutaneous tissue was again irrigated and the skin was closed with 4-0 Monocryl and dressed with Dermabond. All counts were correct at the end of the procedure. Right stent was removed at the conclusion of the case please place modifier difficult case Surgical Infection Prevention Bundle Used? Yes Infection present at time of surgery? No Mechanical bowel prep: Yes Oral antibiotic prep: Yes, Flagyl + Neomycin Chlorhexidine-alcohol skin prep: Yes Pre-op IV antibiotics: Levofloxacin plus metronidazole Open Case? No. Attestation: Case Date: 09/28/2023 I was present and I participated during the entire procedure (does not need to include opening and closing). Ariana Garcia MD 09/28/2023 documented in this encounter Plan of Treatment Upcoming Encounters Date Type Department Care Team (Late st Contact Info) Description 01/28/2024 10:30 AM EDT Office Visit Hematology/Oncolog y at [address] [address] Derek Lindquist MD [facility] [place] [address] Ann Tello APRN [address] [place] [address] [place] [address] 03/24/2024 1:00 PM EDT Hospital En[place] [phone] Shilo Lopez MD [facility] [place] [address] 03/24/2024 1:00 PM EDT - 03/24/2024 1:45 PM EDT Surgery [place] [address] Shilo Lopez MD [facility] [place] [address] COLONOSCOPY, DIAGNOSTIC (WRVU 3.26) Scheduled Orders Name Type Priority Associated Diagnoses Orde r Schedule Basic Metabolic Panel (non-fasting) Lab Routine S/P laparoscopy Malignant neoplasm of ascending colon Expected: 10/11/2023, Expires: 12/04/2023 Magnesium Lab Routine S/P laparoscopy Malignant neoplasm of ascending colon Expected: 10/11/2023, Expires: 12/04/2023 Scheduled Procedures Name Priority Associated Diagnoses Date/Ti [...] Associated Diagnosis Comments CRP, ACUTE INFLAMMATION Routine 10/04/2023 4:57 AM EDT MAGNESIUM Routine 10/04/2023 4:57 AM EDT BASIC METABOLIC PANEL Routine 10/04/2023 4:57 AM EDT CRP, ACUTE INFLAMMATION Routine 10/03/2023 1:54 AM EDT MAGNESIUM Routine 10/03/2023 1:54 AM EDT BASIC METABOLIC PANEL Routine 10/03/2023 1:54 AM EDT CRP, ACUTE INFLAMMATION Routine 10/02/2023 5:21 AM EDT LAVENDER TUBE HOLD Routine 10/02/2023 5: 21 AM EDT MAGNESIUM Routine 10/02/2023 5:21 AM EDT BASIC METABOLIC PANEL Routine 10/02/2023 5:21 AM EDT CRP, ACUTE INFLAMMATION Routine 10/01/2023 5:39 AM EDT HEMOGRAM Routine 10/01/2023 5:39 AM EDT MAGNESIUM Routine 10/01/2023 5:39 AM EDT BASIC METABOLIC PANEL Routine 10/01/2023 5:39 AM EDT XR ABDOMEN 1 VIEW STAT 09/30/2023 8:4 2 PM EDT HEMOGRAM STAT 09/30/2023 7:17 PM EDT PHOSPHORUS STAT 09/30/2023 7:17 PM EDT MAGNESIUM STAT 09/30/2023 7:17 PM EDT BASIC METABOLIC PANEL STAT 09/30/2023 7:17 PM EDT XR ABDOMEN ACUTE SERIES W PA CHEST STAT 09/30/2023 6:14 PM EDT HEMOGRAM Routine 09/30/2023 9:27 AM EDT CRP, ACUTE INFLAMMATION Routine 09/30/2023 5:45 AM EDT MAGNESIUM Routine 09/30/2023 5:45 AM EDT BASIC METABOLIC PANEL Routine 09/30/2023 5:45 AM EDT MAGNESIUM STAT 09/29/2023 1:17 PM EDT BASIC METABOLIC PANEL STAT 09/29/2023 1:17 PM EDT EKG 12-LEAD STAT 09/29/2023 1:10 PM EDT Tachycardia CREATININE Routine 09/29/2023 1:04 AM EDT HEMOGLOBIN AND HEMATOCRIT, BLOOD Routine 09/29/2023 1:04 AM EDT CREATININE STAT 09/28/2023 5:50 PM EDT HEMOGLOBIN AND HEMATOCRIT, BLOOD STAT 09/28/2023 5:50 PM EDT SPECIMEN TO PATHOLOGY Routine 09/28/2023 4:25 PM EDT SPECIMEN TO PATHOLOGY Routine 09/28/2023 4:23 PM EDT SURGICAL PATHOLOGY REPORT Routine 09/28/2023 4:15 PM EDT Unlisted Laparoscopic Proc Abd Peritoneum & Omentum (94250) Yes 09/28/2023 1:42 PM EDT appendicitis Colon cancer Cystoscopy, Insert Ureteral Stent (78405) Yes 09/28/2023 1:42 PM EDT appendicitis Colon cancer Lap, Surg, Colectomy, W/Remvl Term Ileum ([id number]) Yes 09/28/2023 1:42 PM EDT appendicitis Colon cancer POCT GLUCOSE Routine 09/28/2023 1:35 PM EDT documented in this encounter Results * (ABNORMAL) CRP, acute inflammation (10/04/2023 4:57 AM EDT) C-Reactive Protein 81.3(H) <=4.9 mg/L [facility] Blood 10/04/2023 4:57 AM EDT 10/04/2023 5:13 AM EDT Narrative Resulting Agency Comment Spec In Lab Ariana Garcia MD CHEMISTRY ORDERABLES [facility] [place] [address] * Magnesium (10/04/2023 4:57 AM EDT) Pathologist [facility] Magnesium 0.78 0.69 - 1.07 mmol/L [facility] Blood 10/04/2023 4:57 AM EDT 10/04/2023 5:13 AM EDT Narrative Resulting Agency Comment Spec In Lab Ariana Garcia MD CHEMISTRY ORDERABLES [facility] [place] [address] * (ABNORMAL) Basic Metabolic Panel (non-fasting) (10/04/2023 4:57 AM EDT) Glucose 129 65 - 199 mg/dL [facility] Comment:Diabetes: >=200 mg/d L plus symptoms Blood Urea Nitrogen 11 8 - 18 mg/dL [facility] Creatinine 0.60(L) 0.70 - 1.20 mg/dL [facility] Sodium 140 135 - 145 mmol/L [facility] Potassium 3.4(L) 3.5 - 5.0 mmol/L [facility] [facility] Comment: Please note: ??Patients with WBC >100,000 may have falsely elevated Potassium levels. ??For accurate Potassium quantification in these patients send serum separator tube (gold top) for subsequent determinations. ??Contact the Clinical Chemistry Laboratory if there are any questions. Chloride 103 98 - 107 mmol/L [facility] Carbon Dioxide 28 22 - 31 mmol/L [facility] Anion Gap 9 5 - 15 mmol/L [facility] Calcium 8.6 8.5 - 10.5 mg/dL [facility] Est Glomerular Filtration Rate 100 >=60 mL/min/1. 73 m?? [facility] Comment: This patient's estimated [...] and symptoms in addition to eGFR. Blood 10/04/2023 4:57 AM EDT 10/04/2023 5:13 AM EDT Narrative Resulting Agency Comment Spec In Lab Ariana Garcia MD CHEMISTRY ORDERABLES [facility] [place] [address] * (ABNORMAL) CRP, acute inflammation (10/03/2023 1:54 AM EDT) C-Reactive Protein 59.3(H) <=4.9 mg/L [facility] Blood 10/03/2023 1:54 AM EDT 10/03/2023 2:16 AM EDT Narrative Resulting Agency Comment Spec In Lab Ariana Garcia MD CHEMISTRY ORDERABLES Performing Organization Address City/[facility]/ZIP Co de Phone Number [facility] [place] [address] * Magnesium (10/03/2023 1:54 AM EDT) Magnesium 0.87 0.69 - 1.07 mmol/L [facility] Blood 10/03/2023 1:54 AM EDT 10/03/2023 2:16 AM EDT Narrative Resulting Agency Comment Spec In Lab Ariana Garcia MD CHEMISTRY ORDERABLES Performing Organization Address City/[facility] Co de Phone Number [facility] [place] [address] * (ABNORMAL) Basic Metabolic Panel (non-fasting) (10/03/2023 1:54 AM EDT) Glucose 99 65 - 199 mg/dL [facility] Comment:Diabetes: >=200 mg/d L plus symptoms Blood Urea Nitrogen 11 8 - 18 mg/dL [facility] Creatinine 0.59(L) 0.70 - 1.20 mg/dL [facility] Sodium 137 135 - 145 mmol/L [facility] Potassium 3.2(L) 3.5 - 5.0 mmol/L [facility] Comment: Please note: ??Patients with WBC >100,000 may have falsely elevated Potassium levels. ??For accurate Potassium quantification in these patients send serum separator tube (gold top) for subsequent determinations. ??Contact the Clinical Chemistry Laboratory if there are any questions. Chloride 100 98 - 107 mmol/L [facility] Carbon Dioxide 26 22 - 31 mmol/L [facility] Anion Gap 11 5 - 15 mmol/L [facility] Calcium 8.4(L) 8.5 - 10.5 mg/dL [facility] Est Glomerular Filtration Rate 100 >=60 mL/min/1. 73 m?? [facility] Comment: This patient's estimated [...] and symptoms in addition to eGFR. Blood 10/03/2023 1:54 AM EDT 10/03/2023 2:16 AM EDT Narrative Resulting Agency Comment Spec In Lab Ariana Garcia MD CHEMISTRY ORDERABLES Performing Organization Address City/[facility]/ZIP Co de Phone Number [facility] [place] [address] * Lavender Tube HOLD (10/02/2023 5:21 AM EDT) Lavender Hold Sample in lab. [facility] Blood Venous Draw / Unknown 10/02/2023 5:21 AM EDT 10/02/2023 5:34 AM EDT Serjio Soriano MD HEMATOLOGY ORDERABLE S Performing Organization Address City/[facility]/ZIP Co de Phone Number [facility] [place] [address] * (ABNORMAL) CRP, acute inflammation (10/02/2023 5:21 AM EDT) C-Reactive Protein 79.7(H) <=4.9 mg/L [facility] Blood 10/02/2023 5:21 AM EDT 10/02/2023 5:34 AM EDT Narrative Resulting Agency Comment Spec In Lab Ariana Garcia MD CHEMISTRY ORDERABLES [facility] [place] [address] * Magnesium (10/02/2023 5:21 AM EDT) Pathologist [facility] Magnesium 0.86 0.69 - 1.07 mmol/L [facility] Blood 10/02/2023 5:21 AM EDT 10/02/2023 5:34 AM EDT Narrative Resulting Agency Comment Spec In Lab Ariana Garcia MD CHEMISTRY ORDERABLES Performing Organization Address City/[facility]/ZIP Co de Phone Number [facility] [place] [address] * (ABNORMAL) Basic Metabolic Panel (non-fasting) (10/02/2023 5:21 AM EDT) Pathologist [facility] Glucose 117 65 - 199 mg/dL [facility] Comment:Diabetes: >=200 mg/d L plus symptoms Blood Urea Nitrogen 12 8 - 18 mg/dL [facility] Creatinine 0.60(L) 0.70 - 1.20 mg/dL [facility] Sodium 138 135 - 145 mmol/L [facility] Potassium 3.1(L) 3.5 - 5.0 mmol/L [facility] Comment: Please note: ??Patients with WBC >100,000 may have falsely elevated Potassium levels. ??For accurate Potassium quantification in these patients send serum separator tube (gold top) for subsequent determinations. ??Contact the Clinical Chemistry Laboratory if there are any questions. Chloride 99 98 - 107 mmol/L [facility] Carbon Dioxide 27 22 - 31 mmol/L [facility] Anion Gap 12 5 - 15 mmol/L [facility] Calcium 8.5 8.5 - 10.5 mg/dL [facility] Est Glomerular Filtration Rate 100 >=60 mL/min/1. 73 m?? [facility] Comment: This patient's estimated [...] and symptoms in addition to eGFR. Blood 10/02/2023 5:21 AM EDT 10/02/2023 5:34 AM EDT Narrative Resulting Agency Comment Spec In Lab Ariana Garcia MD CHEMISTRY ORDERABLES Performing Organization Address [facility]/ZIP Co de Phone Number [facility] [place] [address] * Magnesium (10/01/2023 5:39 AM EDT) Magnesium 0.85 0.69 - 1.07 mmol/L [facility] Blood 10/01/2023 5:39 AM EDT 10/01/2023 6:11 AM EDT Narrative Resulting Agency Comment Spec In Lab Ariana Garcia MD CHEMISTRY ORDERABLES Performing Organization Address [facility] Co de Phone Number [facility] [place] [address] * (ABNORMAL) Basic Metabolic Panel (non-fasting) (10/01/2023 5:39 AM EDT) Glucose 161 65 - 199 mg/dL [facility] Comment:Diabetes: >=200 mg/d L plus symptoms Blood Urea Nitrogen 12 8 - 18 mg/dL [facility] Creatinine 0.62(L) 0.70 - 1.20 mg/dL [facility] Sodium 137 135 - 145 mmol/L [facility] Potassium 3.7 3.5 - 5.0 mmol/L [facility] Comment: Please note: ??Patients with WBC >100,000 may have falsely elevated Potassium levels. ??For accurate Potassium quantification in these patients send serum separator tube (gold top) for subsequent determinations. ??Contact the Clinical Chemistry Laboratory if there are any questions. Chloride 100 98 - 107 mmol/L [facility] Carbon Dioxide 26 22 - 31 mmol/L [facility] Anion Gap 11 5 - 15 mmol/L [facility] Calcium 8.9 8.5 - 10.5 mg/dL [facility] Est Glomerular Filtration Rate 99 >=60 mL/min/1. 73 m?? [facility] Comment: This patient's estimated [...] and symptoms in addition to eGFR. Blood 10/01/2023 5:39 AM EDT 10/01/2023 6:11 AM EDT Narrative Resulting Agency Comment Spec In Lab Ariana Garcia MD CHEMISTRY ORDERABLES Performing Organization Address City/[facility]/ZIP Co de Phone Number [facility] [place] [address] * (ABNORMAL) CRP, acute inflammation (10/01/2023 5:39 AM EDT) C-Reactive Protein 185.2(H) <=4.9 mg/L [facility] Blood 10/01/2023 5:39 AM EDT 10/01/2023 6:11 AM EDT Narrative Resulting Agency Comment Spec In Lab Ariana Garcia MD CHEMISTRY ORDERABLES Performing Organization Address City/[facility]/ZIP Co de Phone Number [facility] [place] [address] * (ABNORMAL) Hemogram (10/01/2023 5:39 AM EDT) White Blood Cell 9.8(H) 4.0 - 9.5 x10(3)/[facility] Red Blood Cell 4.32 4.00 - 5.21 x10(6)/[facility] Hemoglobin 13.6 11.7 - 15.5 g/dL [facility] Hematocrit 40.2 35.7 - 45.8 % [facility] Mean Cell Volume 93.1 82.6 - 94.4 fL [facility] Mean Cell Hemoglobin 31.5 27.1 - 32.0 pg [facility] Mean Cell Hemoglobin Concentration 33.8 31.7 - 35.0 g/dL [facility] Platelet 188 145 - 357 x10(3)/[facility] RDW Standard Deviation 44.1 37.0 - 46.0 [facility] RDW coefficient of variation 12.9 11.5 - 14.1 % [facility] Mean Platelet Volume 10.1 7.6 - 12.9 fL [facility] NRBC% auto 0.0 % [facility] NRBC Absolute 0.000 0.000 - 0.000 x10(3)/[facility] Blood 10/01/2023 5:39 AM EDT 10/01/2023 6:11 AM EDT Narrative Resulting Agency Comment Spec In Lab Ariana Garcia MD HEMATOLOGY ORDERABLE S [facility] [place] [address] * XR Abdomen 1 view (Generic) (09/30/2023 8:42 PM EDT) WORKSTATION ID [id number] RAD Anatomical Region Laterality Modality Abdomen N/A Digital Radiogra phy Impressions 09/30/2023 8:53 PM EDT FINDINGS/IMPRESSION: The distal portion of a nasogastric tube projects over the left side of the spine, tip projecting over the region of the gastric antrum. Similar gaseous distention of small bowel. Thank you for letting us participate in the care of this patient. ??If you are a health care provider and have any questions regarding this report, please contact the number below. ??For patients who have questions please contact the health personal care worker that requested your imaging first. ? Narrative 09/30/2023 8:53 PM EDT EXAMINATION: XR ABDOMEN 1 VIEW (GENERIC) CLINICAL HISTORY: confirm NGT placement TECHNIQUE: Supine frontal view of the lower chest and upper abdomen COMPARISON: Abdominal radiographs same day at 18:07 Procedure Note Simone Hines MD - 09/30/2023 EXAMINATION: XR ABDOMEN 1 VIEW (GENERIC) CLINICAL HISTORY: confirm NGT placement TECHNIQUE: Supine frontal view of the lower chest and upper abdomen COMPARISON: Abdominal radiographs same day at 18:07 IMPRESSION FINDINGS/IMPRESSION: The distal portion of a nasogastric tube projects over the left side ofthe spine, tip projecting over the region of the gastric antrum. Similar gaseous distention of small bowel. Thank you for letting us participate in the care of this patient. If youare a health care provider and have any questions regarding this report,please contact the number below. For patients who have questions please contactthe health personal care worker that requested your imaging first. Ariana Garcia MD IMG DX ORDERABLES * (ABNORMAL) Phosphorus (09/30/2023 7:17 PM EDT) Pathologist [facility] Phosphorus 2.4(L) 2.5 - 4.5 mg/dL [facility] Blood 09/30/2023 7:17 PM EDT 09/30/2023 7:26 PM EDT Narrative Resulting Agency Comment Spec In Lab Ariana Garcia MD CHEMISTRY ORDERABLES [facility] [place] [address] * Magnesium (09/30/2023 7:17 PM EDT) Pathologist [facility] Magnesium 0.77 0.69 - 1.07 mmol/L [facility] Blood 09/30/2023 7:17 PM EDT 09/30/2023 7:26 PM EDT Narrative Resulting Agency Comment Spec In Lab Ariana Garcia MD CHEMISTRY ORDERABLES Performing Organization Address City/[facility]/ZIP Co de Phone Number [facility] [place] [address] * (ABNORMAL) Hemogram (09/30/2023 7:17 PM EDT) Pathologist [facility] White Blood Cell 10.8(H) 4.0 - 9.5 x10(3)/mc L [facility] Red Blood Cell 4.46 4.00 - 5.21 x10(6)/mc L [facility] Hemoglobin 14.0 11.7 - 15.5 g/dL [facility] Hematocrit 40.5 35.7 - 45.8 % [facility] Mean Cell Volume 90.8 82.6 - 94.4 fL [facility] Mean Cell Hemoglobin 31.4 27.1 - 32.0 pg [facility] Mean Cell Hemoglobin Concentration 34.6 31.7 - 35.0 g/dL [facility] Platelet 181 145 - 357 x10(3)/mc L [facility] RDW Standard Deviation 42.5 37.0 - 46.0 fL [facility] RDW coefficient of variation 12.8 11.5 - 14.1 % [facility] Mean Platelet Volume 10.0 7.6 - 12.9 fL [facility] NRBC% auto 0.0 % [facility] NRBC Absolute 0.000 0.000 - 0.000 x10(3)/mc L [facility] Blood 09/30/2023 7:17 PM EDT 09/30/2023 7:26 PM EDT Narrative Resulting Agency Comment Spec In Lab Ariana Garcia MD HEMATOLOGY ORDERABLE S Performing Organization Address City/State/[facility] Co de Phone Number [facility] [place] [address] * (ABNORMAL) Basic Metabolic Panel (non-fasting) (09/30/2023 7:17 PM EDT) Glucose 166 65 - 199 mg/dL [facility] Comment:Diabetes: >=200 mg/d L plus symptoms Blood Urea Nitrogen 10 8 - 18 mg/dL [facility] Creatinine 0.62(L) 0.70 - 1.20 mg/dL [facility] Sodium 139 135 - 145 mmol/L [facility] Potassium 3.8 3.5 - 5.0 mmol/L [facility] Comment: Please note: ??Patients with WBC >100,000 may have falsely elevated Potassium levels. ??For accurate Potassium quantification in these patients send serum separator tube (gold top) for subsequent determinations. ??Contact the Clinical Chemistry Laboratory if there are any questions. Chloride 102 98 - 107 mmol/L [facility] Carbon Dioxide 23 22 - 31 mmol/L [facility] Anion Gap 14 5 - 15 mmol/L [facility] Calcium 8.9 8.5 - 10.5 mg/dL [facility] Est Glomerular Filtration Rate 99 >=60 mL/min/1. 73 m?? [facility] Comment: This patient's estimated [...] and symptoms in addition to eGFR. Blood 09/30/2023 7:17 PM EDT 09/30/2023 7:26 PM EDT Narrative Resulting Agency Comment Spec In Lab Ariana Garcia MD CHEMISTRY ORDERABLES Performing Organization Address City/State/[facility] Co de Phone Number [facility] [place] [address] * XR Abdomen Acute Series w PA Chest (09/30/2023 6:14 PM EDT) Pathologist [employer] WORKSTATION ID [id number] RAD Anatomical Region Laterality Modality Abdomen, Chest N/A Digital Radiogra phy Impressions 09/30/2023 7:26 PM EDT 1. ??No pneumoperitoneum. 2. ??Mild small bowel dilatation suggestive of postoperative ileus. Thank you for letting us participate in the care of this patient. ??If you are a health care provider and have any questions regarding this report, please contact the number below. ??For patients who have questions please contact the health personal care worker that requested your imaging first. ? Narrative 09/30/2023 7:26 PM EDT EXAMINATION: XR ABDOMEN ACUTE SERIES W PA CHEST CLINICAL HISTORY: POD2 from right hemicolectomy with primary anastomosis, significant abdominal tenderness, nauseous and tachycardia, concern for free air abdominal TECHNIQUE: Supine and upright frontal views of the abdomen Upright frontal view of the chest. COMPARISON: CT chest abdomen and pelvis 08/11/2023 FINDINGS: Mild linear bibasilar atelectasis in the lungs. No pleural effusion or pneumothorax. The cardiac and mediastinal silhouettes are within normal size limits. Mild gaseous distention of small bowel loops with differential air-fluid levels on upright views. No wall thickening. No pneumoperitoneum. Degenerative changes in the spine, sacroiliac joints, hips and pubic symphysis. Procedure Note Simone Hines MD - 09/30/2023 EXAMINATION: XR ABDOMEN ACUTE SERIES W PA CHEST CLINICAL HISTORY: POD2 from right hemicolectomy with primaryanastomosis, significant abdominal tenderness, nauseous and tachycardia, concern forfree air abdominal TECHNIQUE: Supine and upright frontal views of the abdomen Upright frontal view of the chest. COMPARISON: CT chest abdomen and pelvis 08/11/2023 FINDINGS: Mild linear bibasilar atelectasis in the lungs. No pleural effusion or pneumothorax. The cardiac and mediastinal silhouettes are within normalsize limits. Mild gaseous distention of small bowel loops with differential air-fluidlevels on upright views. No wall thickening. No pneumoperitoneum. Degenerative changes in the spine, sacroiliac joints, hips and pubicsymphysis. IMPRESSION 1. No pneumoperitoneum. 2. Mild small bowel dilatation suggestive of postoperative ileus. Thank you for letting us participate in the care of this patient. If youare a health care provider and have any questions regarding this report,please contact the number below. For patients who have questions please contactthe health personal care worker that requested your imaging first. Ariana Garcia MD IMG DX ORDERABLES * (ABNORMAL) Hemogram (09/30/2023 9:27 AM EDT) [facility] White Blood Cell 10.9(H) 4.0 - 9.5 x10(3)/mc L [facility] Red Blood Cell 4.50 4.00 - 5.21 x10(6)/mc L [facility] Hemoglobin 14.0 11.7 - 15.5 g/dL [facility] Hematocrit 41.0 35.7 - 45.8 % [facility] Mean Cell Volume 91.1 82.6 - 94.4 fL [facility] Mean Cell Hemoglobin 31.1 27.1 - 32.0 pg [facility] Mean Cell Hemoglobin Concentration 34.1 31.7 - 35.0 g/dL [facility] Platelet 179 145 - 357 x10(3)/mc L [facility] RDW Standard Deviation 42.9 37.0 - 46.0 fL [facility] RDW coefficient of variation 12.8 11.5 - 14.1 % [facility] Mean Platelet Volume 10.0 7.6 - 12.9 fL [facility] NRBC% auto 0.0 % [facility] NRBC Absolute 0.000 0.000 - 0.000 x10(3)/mc L [facility] Blood 09/30/2023 9:27 AM EDT 09/30/2023 9:54 AM EDT Narrative Resulting Agency Comment Spec In Lab Ariana Garcia MD HEMATOLOGY ORDERABLE S [facility] [place] [address] * Magnesium (09/30/2023 5:45 AM EDT) Magnesium 0.75 0.69 - 1.07 mmol/L [facility] Blood 09/30/2023 5:45 AM EDT 09/30/2023 5:58 AM EDT Narrative Resulting Agency Comment Spec In Lab Ariana Garcia MD CHEMISTRY ORDERABLES [facility] [place] [address] * Basic Metabolic Panel (non-fasting) (09/30/2023 5:45 AM EDT) Glucose 150 65 - 199 mg/dL [facility] Comment:Diabetes: >=200 mg/d L plus symptoms Blood Urea Nitrogen 10 8 - 18 mg/dL [facility] Creatinine 0.83 0.70 - 1.20 mg/dL [facility] Sodium 139 135 - 145 mmol/L [facility] Potassium 3.8 3.5 - 5.0 mmol/L [facility] Comment: Please note: ??Patients with WBC >100,000 may have falsely elevated Potassium levels. ??For accurate Potassium quantification in these patients send serum separator tube (gold top) for subsequent determinations. ??Contact the Clinical Chemistry Laboratory if there are any questions. Chloride 102 98 - 107 mmol/L [facility] Carbon Dioxide 25 22 - 31 mmol/L [facility] Anion Gap 12 5 - 15 mmol/L [facility] Calcium 8.9 8.5 - 10.5 mg/dL [facility] Est Glomerular Filtration Rate 78 >=60 mL/min/1. 73 m?? [facility] Comment: This patient's estimated [...] and symptoms in addition to eGFR. Blood 09/30/2023 5:45 AM EDT 09/30/2023 5:58 AM EDT Narrative Resulting Agency Comment Spec In Lab Ariana Garcia MD CHEMISTRY ORDERABLES Performing Organization Address City/[facility]/ZIP Co de Phone Number [facility] [place] [address] * (ABNORMAL) CRP, acute inflammation (09/30/2023 5:45 AM EDT) C-Reactive Protein 286.3(H) <=4.9 mg/L [facility] Blood 09/30/2023 5:45 AM EDT 09/30/2023 5:58 AM EDT Narrative Resulting Agency Comment Spec In Lab Ariana Garcia MD CHEMISTRY ORDERABLES Performing Organization Address City/[facility]/ZIP Co de Phone Number [facility] [place] [address] * Magnesium (09/29/2023 1:17 PM EDT) Magnesium 0.70 0.69 - 1.07 mmol/L [facility] Blood 09/29/2023 1:17 PM EDT 09/29/2023 1:27 PM EDT Narrative Resulting Agency Comment Spec In Lab Ariana Garcia MD CHEMISTRY ORDERABLES Performing Organization Address [facility]/ZIP Co de Phone Number [facility] [place] [address] * Basic Metabolic Panel (non-fasting) (09/29/2023 1:17 PM EDT) Glucose 130 65 - 199 mg/dL [facility] Comment:Diabetes: >=200 mg/d L plus symptoms Blood Urea Nitrogen 11 8 - 18 mg/dL [facility] Creatinine 0.86 0.70 - 1.20 mg/dL [facility] Sodium 141 135 - 145 mmol/L [facility] Potassium 4.3 3.5 - 5.0 mmol/L [facility] Comment: Please note: ??Patients with WBC >100,000 may have falsely elevated Potassium levels. ??For accurate Potassium quantification in these patients send serum separator tube (gold top) for subsequent determinations. ??Contact the Clinical Chemistry Laboratory if there are any questions. Chloride 103 98 - 107 mmol/L [facility] Carbon Dioxide 27 22 - 31 mmol/L [facility] Anion Gap 11 5 - 15 mmol/L [facility] Calcium 9.0 8.5 - 10.5 mg/dL [facility] Est Glomerular Filtration Rate 75 >=60 mL/min/1. 73 m?? [facility] Comment: This patient's estimated [...] and symptoms in addition to eGFR. Blood 09/29/2023 1:17 PM EDT 09/29/2023 1:27 PM EDT Narrative Resulting Agency Comment Spec In Lab Ariana Garcia MD CHEMISTRY ORDERABLES [facility] [place] [address] * EKG 12 Lead (09/29/2023 1:10 PM EDT) Ventricular rate 96 BPM MUSE SYSTEM Atrial Rate 96 BPM MUSE SYSTEM P-R Interval 170 ms MUSE SYSTEM QRS Duration 88 ms MUSE SYSTEM Q-T Interval 352 ms MUSE SYSTEM QTC Calculated (Bezet) 444 ms MUSE SYSTEM Calculated P [place] 40 degrees MUSE SYSTEM Calculated R [place] 12 degrees MUSE SYSTEM Calculated T [place] 49 degrees MUSE SYSTEM INTERPRETATION Normal sinus rhythm Normal ECG When compared with ECG of 09-SEP-2023 15:44, No significant change was found Confirmed by MD Madisyn, Silas ([id number]) on 09/29/2023 1:31:23 PM MUSE SYSTEM 09/29/2023 1:10 PM EDT 09/29/2023 1:31 PM EDT Ariana Garcia MD ECG ORDERABLES MUSE SYSTEM * Hemoglobin and Hematocrit, blood (09/29/2023 1:04 AM EDT) Hemoglobin 15.0 11.7 - 15.5 g/dL [facility] Hematocrit 43.5 35.7 - 45.8 % [facility] Blood 09/29/2023 1:04 AM EDT 09/29/2023 1:07 AM EDT Narrative Resulting Agency Comment Spec In Lab Ariana Garcia MD HEMATOLOGY ORDERABLE S [facility] [place] [address] * Creatinine (09/29/2023 1:04 AM EDT) Creatinine 0.72 0.70 - 1.20 mg/dL [facility] Est Glomerular Filtration Rate 93 >=60 mL/min/1. 73 m?? [facility] Comment: This patient's estimated [...] and symptoms in addition to eGFR. Blood 09/29/2023 1:04 AM EDT 09/29/2023 1:07 AM EDT Narrative Resulting Agency Comment Spec In Lab Ariana Garcia MD CHEMISTRY ORDERABLES Performing Organization Address City/[facility]/ZIP Co de Phone Number [facility] [place] [address] * (ABNORMAL) Hemoglobin and Hematocrit, blood (09/28/2023 5:50 PM EDT) Hemoglobin 15.6(H) 11.7 - 15.5 g/dL [facility] Hematocrit 46.4(H) 35.7 - 45.8 % [facility] Blood 09/28/2023 5:50 PM EDT 09/28/2023 6:02 PM EDT Narrative Resulting Agency Comment Spec In Lab Ariana Garcia MD HEMATOLOGY ORDERABLE S Performing Organization Address City/[facility] Co de Phone Number [facility] [place] [address] * Creatinine (09/28/2023 5:50 PM EDT) Creatinine 0.93 0.70 - 1.20 mg/dL [facility] Est Glomerular Filtration Rate 68 >=60 mL/min/1. 73 m?? [facility] Comment: This patient's estimated [...] and symptoms in addition to eGFR. Blood 09/28/2023 5:50 PM EDT 09/28/2023 6:02 PM EDT Narrative Resulting Agency Comment Spec In Lab Ariana Garcia MD CHEMISTRY ORDERABLES Performing Organization Address [facility] de Phone Number [facility] [place] [address] * Specimen to Pathology (09/28/2023 4:25 PM EDT) AP Specimen 09/28/2023 4:25 PM EDT 09/28/2023 4:25 PM EDT Narrative [facility] - 09/28/2023 4:25 PM EDT Specimen requisition ordered. ??Separate Pathology report to follow Ariana Garcia MD PATHOLOGY/CYTOLOGY O RDERABLES Performing Organization Address [facility] Co de Phone Number [facility] [place] [address] * Specimen to Pathology (09/28/2023 4:23 PM EDT) AP Specimen 09/28/2023 4:23 PM EDT 09/28/2023 4:23 PM EDT Narrative [facility] - 09/28/2023 4:23 PM EDT Specimen requisition ordered. ??Separate Pathology report to follow Ariana Garcia MD PATHOLOGY/CYTOLOGY O RDERABLES Performing Organization Address [facility] de Phone Number [facility] [place] [address] * Surgical Pathology Report (09/28/2023 4:15 PM EDT) Final Diagnosis [id number] ? Location: [place]; [facility]; A The signing pathologist has (i) examined the relevant preparation(s) for the specimen(s) and (ii) rendered or confirmed the diagnosis(es). . ?Surgical Pathology DIAGNOSIS A - Right colon with ?? terminal ileum, cecum, appendix, ascending colon, right [...] The areas with two metal clips in ?? proximal ascending colon mucosa with tubular adenoma and focal ulceration are present, negative for invasive carcinoma. Eighteen lymph nodes, negative for carcinoma (0/18). B - ??Ileocecal anastomosis, excision: Segment of small intestine and segment of colon with anastomosis, negative for carcinoma. CR-PX Electronically signed by: ?Brenton ESPOSITO, Kimberly Verified: ??10/26/2023 17:22 ??Pathologist Performed at: ??-[facility] [place] Dept. of Pathology, [place] [address] Shipping And Receiving Operator: Alejandra Parmar MD, FCAP, ??CLIA Certificate: [id number] DISCUSSION Part A: Per electronic clinical notes, patient with a known history of colon cancer with evidence of peritoneal disease who underwent preoperative neoadjuvant treatment was noted. 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 No residual carcinoma is identified in this right colectomy specimen. Mucosal ulceration and fibrosis and inflammation in the wall are seen in the cecum ?at appendiceal orifice. Mucin pools with inflammation, multinucleated giant cells, fibrosis and ? hemorrhage are seen in periappendiceal soft tissue. The findings may suggest treatment-related changes and the cecum at appendiceal area is suspected as the prior perforated tumor bed. The areas with two metal clips in ascending colon show focal ulceration and tubular adenoma, no invasive carcinoma present. Case was reviewed on GI pathology consensus meeting with concurred diagnosis. ADDITIONAL STUDIES Whole slide scan: [id number] A3-1 [id number] A4-1 [id number] A7-1 [id number] A8-1 [id number] SPECIMEN(S) SUBMITTED A - Right Colon, excision (1) . SPECIMEN(S) SUBMITTED B - Iloececal anastomosis, excision (1) CLINICAL INFORMATION Perforated cecal cancer with preoperative chemotherapy SPECIMEN PROCESSING A - Labeled/Fixative: Right colon, fresh. Resection Specimen: Intact, partial colectomy, including the terminal ileum, cecum, appendix, ascending colon. Length/Diameter: ??Terminal Ileum: 12.0 x 2.0 cm. Colon: 12.5 x 5.0 cm. External Architecture: The appendix is adherent to the serosa/mesentery of the terminal ileum. Serosa: Adhesions and adherent omental fat surrounding the appendix. Mucosa: [place]nis-pink, glistening, well folded. ??There are 2 metallic clips attached to the proximal ascending colon mucosa without associated lesions. There is mild induration at the appendiceal orifice without an identified residual gross lesion. ??The appendiceal orifice induration is approximately 13 cm only proximal margin and 12 cm in the distal margin and 1.0 cm from the posterior soft tissue margin. Additionally, there is a 0.8 x 0.5 x 0.5 cm pedunculated polyp within the ascending colon, 1.0 cm from the distal margin. Wall: 0.7 cm thick. Appendix: 3.5 x 1.0 cm, the appendix adherent to the terminal ileum and has a thickened wall measuring up to 0.6 cm. ??Between appendix and terminal ileum is ill-defined, edematous fibrosis and possible mucin. ??A discrete mass lesion is not grossly identified. Lymph nodes: Lymph nodes are harvested from the primary krzysztof basin Sections/Processin g: Mammographer sections in 35 cassettes as follows: ?A1: ??proximal margin ?A2: ??distal margin ?A3-A5: ??Appendiceal orifice/cecum with mild induration area entirely submitted ? including posterior soft tissue margin (inked black) ?A6-A10: ??Appendix cross-sections sequentially and entirely submitted from proximal ? to distal with terminal ileum in blocks A9 and A10 ?A11-A12: ??Bivalved appendiceal tip ?A13: ??Posterior soft tissue margin closest to appendix ?A14: ??Ascending colon polyp, bisected ?A15: ??Single bisected lymph node ?A16-A17: ??Single trisected lymph node ?A18-A19: ??Single trisected lymph node ?A20: ??Single bisected lymph node ?A21: ??Single bisected lymph node ?A22: ??Single bisected lymph node ?A23-A27: ??Each block containing multiple intact lymph nodes ?A28-A33: Metallic clip site and surrounding irregular appearing mucosa within ? ascending colon, entirely submitted ?A34-A35: Second clip site and surrounding mucosa within ascending colon B - Labeled/Fixative: Ileocolic anastomosis, fresh. Quantity/Size: Single, 3.5 x 2.5 cm small bowel; 5.0 x 3.5 cm colon. Tissue Description: Portion of small bowel and colon with a shared anastomotic staple line. ??The mucosal surfaces are glistening, smooth with no identified lesions. Sections/Processin g: Mammographer sections in 2 cassettes as follows: ?B1: ??Small bowel margin ?B2: ??Colon margin ??ajw 10/26/2023 5:22 PM EDT [facility] COLON STRUCTURE / Unknown 09/28/2023 4:15 PM EDT 09/28/2023 4:15 PM EDT Stoma 09/28/2023 4:15 PM EDT 09/28/2023 4:15 PM EDT Ariana Garcia MD PATHOLOGY/CYTOLOGY O RDERABLES [facility] [place] [address] * POCT Glucose (09/28/2023 1:35 PM EDT) Glucose, POC 81 65 - 199 mg/dL [facility] Comment: Supplemental ranges: <140 mg/dL before meals <180 mg/dL all other times of the day Blood 09/28/2023 1:35 PM EDT 09/28/2023 1:35 PM EDT Ariana Garcai MD POINT OF CARE TEST O RDERABLES [facility] [place] [address] documented in this encounter Visit Diagnoses Diagnosis Colon cancer- Primary Malignant neoplasm of colon, unspecified site Tachycardia Tachycardia, unspecified S/P laparoscopy Other postprocedural status Malignant neoplasm of ascending colon S/P laparoscopy Other postprocedural status Tachycardia Tachycardia, unspecified documented in this encounter Admitting Diagnoses Diagnosis Colon cancer Malignant neoplasm of colon, unspecified site documented in this encounter Administered Medications Inactive Administered Medications - up to 3 most recent administrations Medication Order MAR Action Action Date Dose Rate Site acetaminophen (Ofirmev) (1,000 mg/100 mL) infusion 1,000 mg 1,000 mg, Intravenous, at 400 mL/hr, Administer over 15 Minutes, EVERY 6 HOURS SCHEDULED, 7 doses, First dose on Wed09/28/23 at 1800, Last dose on Wed09/30/23 at 0600, Maximum dose of acetaminophen is 4,000 mg from all sources in 24 hours. When ordered for pain, acetaminophen should be given even when other ordered pain medications are indicated., Routine, Is ketorolac (Toradol) IV contraindicated? Yes, Can this patient tolerate oral medications or suppositories? No Given 09/30/2023 5:24 AM EDT 1,000 mg 400 mL/hr Given 09/29/2023 11:55 PM EDT 1,000 mg 400 mL/hr Given 09/29/2023 5:38 PM EDT 1,000 mg 400 mL/hr acetaminophen (Ofirmev) (1,000 mg/100 mL) infusion 1,000 mg 1,000 mg, Intravenous, at 400 mL/hr, Administer over 15 Minutes, EVERY 8 HOURS SCHEDULED, 3 doses, First dose (after last reorder) on Wed09/30/23 at 1400, Last dose on Wed10/01/23 at 0600, Maximum dose of acetaminophen is 4,000 mg from all sources in 24 hours. When ordered for pain, acetaminophen should be given even when other ordered pain medications are indicated., Routine, Is ketorolac (Toradol) IV contraindicated? Yes, Can this patient tolerate oral medications or suppositories? No Given 10/01/2023 5:04 AM EDT 1,000 mg 400 mL/hr Given 09/30/2023 9:05 PM EDT 1,000 mg 400 mL/hr Given 09/30/2023 1:42 PM EDT 1,000 mg 400 mL/hr acetaminophen (Ofirmev) (1,000 mg/100 mL) infusion 1,000 mg 1,000 mg, Intravenous, at 400 mL/hr, Administer over 15 Minutes, EVERY 6 HOURS, 4 doses, First dose (after last reorder) on Wed10/01/23 at 1100, Last dose on 10/02/23 at 0500, Maximum dose of acetaminophen is 4,000 mg from all sources in 24 hours. When ordered for pain, acetaminophen should be given even when other ordered pain medications are indicated., Routine, Is ketorolac (Toradol) IV contraindicated? Yes, Can this patient tolerate oral medications or suppositories? No Given 10/02/2023 5:22 AM EDT 1,000 mg 400 mL/hr Given 10/01/2023 11:09 PM EDT 1,000 mg 400 mL/hr Given 10/01/2023 5:19 PM EDT 1,000 mg 400 mL/hr acetaminophen (Ofirmev) (1,000 mg/100 mL) infusion 1,000 mg 1,000 mg, Intravenous, at 400 mL/hr, Administer over 15 Minutes, EVERY 8 HOURS SCHEDULED, 3 doses, First dose (after last reorder) on 10/02/23 at 1100, Last dose on 10/03/23 at 0600, Maximum dose of acetaminophen is 4,000 mg from all sources in 24 hours. When ordered for pain, acetaminophen should be given even when other ordered pain medications are indicated., Routine, Is ketorolac (Toradol) IV contraindicated? Yes, Can this patient tolerate oral medications or suppositories? No Given 10/03/2023 4:28 AM EDT 1,000 mg 400 mL/hr Given 10/02/2023 8:23 PM EDT 1,000 mg 400 mL/hr Given 10/02/2023 11:50 AM EDT 1,000 mg 400 mL/hr acetaminophen (Tylenol) tablet 975 mg 975 mg, Oral, ONCE, 1 dose, On Wed09/28/23 at 1315, Avoid in patients with liver dysfunction, Day of Surgery (Day of Procedure), Routine Given 09/28/2023 1:37 PM EDT 975 mg acetaminophen (Tylenol) tablet 975 mg 975 mg, Oral, EVERY 6 HOURS SCHEDULED, First dose on Wed10/03/23 at 1200, Until Discontinued, Maximum dose of acetaminophen is 4,000 mg from all sources in 24 hours. When ordered for pain, acetaminophen should be given even when other ordered pain medications are indicated. , Routine Given 10/04/2023 12:53 AM EDT 975 mg Given 10/03/2023 5:32 PM EDT 975 mg Given 10/03/2023 11:43 AM EDT 975 mg cyclobenzaprine (Flexeril) tablet 10 mg 10 mg, Oral, ONCE, 1 dose, On 10/02/23 at 2300, Routine Given 10/02/2023 10:35 PM EDT 10 mg cyclobenzaprine (Flexeril) tablet 10 mg 10 mg, Oral, 3 TIMES DAILY PRN, Starting on Wed10/03/23 at 0710, Until Wed10/04/23 at 1349, Muscle spasms, Routine Given 10/03/2023 7:52 PM EDT 10 mg diazePAM (Valium) (5 mg/mL) injection solution 5 mg 5 mg, Intravenous, ONCE, 1 dose, On Wed09/29/23 at 1230, Please note size of product compared to ordered dose., Routine Given 09/29/2023 1:35 PM EDT 5 mg enoxaparin (Lovenox) (40 mg/0.4 mL) subcutaneous injection 40 mg 40 mg, Subcutaneous, NIGHTLY, First dose on Wed09/28/23 at 2100, Until Discontinued, Routine Given 10/03/2023 7:51 PM EDT 40 mg Given 10/02/2023 8:23 PM EDT 40 mg Given 10/01/2023 8:47 PM EDT 40 mg famotidine (Pepcid) (10 mg/mL) injection 20 mg 20 mg, Intravenous, EVERY 12 HOURS SCHEDULED (2 times per day), First dose on Wed09/30/23 at 1015, Until Discontinued Given 09/30/2023 9:41 AM EDT 20 mg heparin (porcine) (5,000 units/1 mL) subcutaneous injection 5,000 Units 5,000 Units, Subcutaneous, ONCE, 1 dose, On Wed09/28/23 at 1315, Day of Surgery (Day of Procedure), Routine Given 09/28/2023 1:37 PM EDT 5,000 Units hydrALAZINE (Apresoline) (20 mg/mL) injection 10 mg 10 mg, Intravenous, EVERY 4 HOURS PRN, Starting on Wed09/30/23 at 2315, Until Wed10/01/23 at 0147, High Blood Pressure, PRN for SBP >160, for HR <60, secondline Given 10/01/2023 1:12 AM EDT 10 mg hydrALAZINE (Apresoline) (20 mg/mL) injection 10 mg 10 mg, Intravenous, EVERY 4 HOURS PRN, Starting on Wed10/01/23 at 0543, Until Wed10/04/23 at 1349, High Blood Pressure, PRN for SBP >160 or HR >100, secondline Given 10/02/2023 5:52 PM EDT 10 mg Given 10/01/2023 5:26 PM EDT 10 mg hydrALAZINE (Apresoline) (20 mg/mL) injection 5 mg 5 mg, Intravenous, EVERY 6 HOURS PRN, Starting on Wed09/29/23 at 1822, Until Wed09/30/23 at 2309, High Blood Pressure, PRN for SBP >160, for HR <60, secondline Given 09/30/2023 5:14 PM EDT 5 mg HYDROmorphone (Dilaudid) (0.5 mg/0.5 mL) injection syringe 0.25 mg 0.25 mg, Subcutaneous, EVERY 4 HOURS PRN, Starting on Wed09/28/23 at 1730, Until Wed10/04/23 at 1349, Pain, Moderate pain (4-6), if given subcutaneously, do not administer more than 3 mL as a single injection For adults, may give in place of other agent(s) ordered for pain (7-10) at patient request., Routine HYDROmorphone (Dilaudid) (0.5 mg/0.5 mL) injection syringe 0.25 mg 0.25 mg, Intravenous, EVERY 4 HOURS PRN, Starting on Wed09/28/23 at 1730, Until Wed10/04/23 at 1349, Pain, rescue dose, For moderate or severe pain (4-10) unrelieved at least 1 hour after initial PRN dose was administered. Max 3 doses/24 hours. If pain still unrelieved after 3rd rescue dose within 24 hours, contact provider., Routine HYDROmorphone (Dilaudid) (0.5 mg/0.5 mL) injection syringe 0.5 mg 0.5 mg, Subcutaneous, EVERY 4 HOURS PRN, Starting on Wed09/28/23 at 1730, Until Wed10/04/23 at 1349, Pain, Severe pain (7-10), if given subcutaneously, do not administer more than 3 mL as a single injection, Routine Given 10/01/2023 1:03 PM EDT 0.5 mg Given 10/01/2023 1:12 AM EDT 0.5 mg Given 09/30/2023 5:20 PM EDT 0.5 mg HYDROmorphone (Dilaudid) (2 mg/mL) multi-dose injection solution 0.2 mg 0.2 mg, Intravenous, EVERY 10 MIN PRN, Starting on Wed09/28/23 at 1659, Until Wed09/28/23 at 1949, Pain, For Mild to Moderate Pain (1-5 out of 10), Hold for respiratory rate less than 10 per minute. Maximum dose 2 mg over one hour including administrations in the OR. If multiple pain medications are ordered, start with HYDROmorphone and use fentaNYL for breakthrough pain. Notify anesthesia team if the maximum of 100 mcg of fentaNYL AND 2 mg of HYDROmorphone has been administered and patient still complains of moderate to severe pain (6-10)., PACU Recovery, Routine Given 09/28/2023 6:25 PM EDT 0.2 mg Given 09/28/2023 6:02 PM EDT 0.4 mg influenza vaccine adjuvanted (Adult 65 Yrs +) (FluAD Quad) (PF) IM injection 0.5 mL 0.5 mL, Intramuscular, PRIOR TO DISCHARGE, 1 dose, Starting on Wed09/29/23 at 1632, Until Wed10/04/23 at 1349, Per Protocol, Routine ketorolac (Toradol) (15 mg/mL) injection 15 mg 15 mg, Intravenous, ONCE PRN, Starting on Wed09/28/23 at 1659, Until Wed09/28/23 at 1949, Pain, Mild Pain (1-3), If ordered with acetaminophen, give acetaminophen first. Do not order if ibuprofen is ordered., PACU Recovery, Routine Given 09/28/2023 5:56 PM EDT 15 mg ketorolac (Toradol) (15 mg/mL) injection 15 mg 15 mg, Intravenous, EVERY 6 HOURS, 3 doses, First dose on Wed09/29/23 at 0845, Last dose on Wed09/29/23 at 204, Routine Given 09/29/2023 8:57 PM EDT 15 mg Given 09/29/2023 8:35 AM EDT 15 mg labetaloL (Normodyne) (5 mg/mL) injection solution 10 mg 10 mg, Intravenous, EVERY 15 MIN PRN, Starting on Wed09/28/23 at 1731, Until Wed09/28/23 at 194, High Blood Pressure, Administer for systolic blood pressure greater than 180 mmHg. Administer 10 mg over 2 minutes. May repeat every 15 minutes if SBP remains above goal. If inadequate effect with 10 mg dose, then increase dose to 20 mg for subsequent dosing every 15 minutes. Do not exceed 300 mg per day. Hold if pulse is less than 45 beats per minute. If multiple antihypertensives ordered, use labetaloL first and if ineffective use hydrALAZINE second and if ineffective use niCARdipine infusion., PACU Recovery, Routine Given 09/28/2023 5:59 PM EDT 10 mg labetaloL (Normodyne) (5 mg/mL) injection solution 10 mg 10 mg, Intravenous, EVERY 4 HOURS PRN, Starting on Wed09/29/23 at 1822, Until Wed09/30/23 at 205, High Blood Pressure, PRN for SBP >160, hold for HR <60, Routine Given 09/30/2023 1:47 PM EDT 10 mg Given 09/29/2023 6:49 PM EDT 10 mg labetaloL (Normodyne) (5 mg/mL) injection solution 20 mg 20 mg, Intravenous, EVERY 4 HOURS PRN, Starting on Jaelyn 09/30/23 at 2052, Until Wed10/01/23 at 0147, High Blood Pressure, PRN for SBP >160, hold for HR <60, Routine Given 09/30/2023 8:57 PM EDT 20 mg labetaloL (Normodyne) (5 mg/mL) injection solution 20 mg 20 mg, Intravenous, EVERY 2 HOURS PRN, Starting on Wed10/01/23 at 0200, Until Wed10/04/23 at 1349, High Blood Pressure, PRN for SBP >160, hold for HR <60, Routine Given 10/03/2023 4:28 AM EDT 20 mg Given 10/02/2023 8:23 PM EDT 20 mg Given 10/02/2023 3:55 PM EDT 20 mg lactated Ringers 500 mL IV bolus at 250 mL/hr, Intravenous, ONCE, 1 dose, On Wed09/29/23 at 0930 New Bag 09/29/2023 9:20 AM EDT 250 mL/hr lactated Ringers 500 mL IV bolus Intravenous, ONCE, 1 dose, On Wed10/01/23 at 0845 New Bag 10/01/2023 8:24 AM EDT lactated ringers infusion 42 mL/hr, Intravenous, CONTINUOUS, Starting on Wed09/28/23 at 1800, Until Wed10/03/23 at 0845, Recovery (Recovery-Hospital Unit) New Bag 10/02/2023 8:23 PM EDT 42 mL/hr 42 mL/ hr New Bag 10/02/2023 5:52 AM EDT 42 mL/hr 42 mL/hr New Bag 10/01/2023 9:42 AM EDT 42 mL/hr 42 mL/hr lidocaine (Glydo) 2 % gel 11 mL 11 mL, INTRA-URETHRAL, ONCE, 1 dose, On Wed09/30/23 at 1930, 11 mL for intra-urethral use only, Routine Given 09/30/2023 7:30 PM EDT 11 mLs lidocaine (Lidoderm) 5% patch 1 patch 1 patch, Transdermal, Administer over 12 Hours, EVERY 24 HOURS, First dose on Wed09/28/23 at 1800, Until Discontinued, Apply patch(es) for 12 hours, and then remove for 12 hours., Routine Patch Applied 09/28/2023 6:06 PM EDT 1 patch 13- Abdomen (Left) lidocaine (Lidoderm) 5% patch 3 patch 3 patch, Transdermal, Administer over 12 Hours, EVERY 24 HOURS, First dose (after last modification) on Wed09/29/23 at 1800, Until Discontinued, Apply patch(es) for 12 hours, and then remove for 12 hours., Routine Patch Applied 10/03/2023 5:31 PM EDT 3 patches 13- Abdomen (Left) Patch Applied 10/02/2023 5:52 PM EDT 3 patches 14- Abdomen (Right) Patch Applied 10/01/2023 5:19 PM EDT 3 patches 13- Abdomen (Left) lidocaine (Xylocaine) 1% (10 mg/mL) injection 3 mg 3 mg (0.3 mL), Subcutaneous, ONCE PRN, 1 dose, Starting on Jaelyn 09/30/23 at 0601, Until Wed10/04/23 at 1349, for discomfort with PIV insertion, Recovery (Recovery-Hospital Unit), Routine magnesium sulfate 1 g in dextrose 5% 100 mL infusion 1 g, Intravenous, ONCE, 1 dose, On 10/02/23 at 0800, Administer over 60 Minutes New Bag 10/02/2023 9:02 AM EDT 1 g 100 mL/hr magnesium sulfate 1 g in dextrose 5% 100 mL infusion 1 g, Intravenous, ONCE, 1 dose, On Wed10/04/23 at 0745, Administer over 60 Minutes New Bag 10/04/2023 8:07 AM EDT 1 g 100 mL/hr ondansetron (pf) (Zofran) (2 mg/mL) injection 8 mg 8 mg, Intravenous, EVERY 8 HOURS PRN, Starting on Wed09/29/23 at 1806, Until Wed10/04/23 at 1349, Nausea Given 10/02/2023 4:19 PM EDT 8 mg Given 10/02/2023 5:48 AM EDT 8 mg Given 10/01/2023 1:10 PM EDT 8 mg ondansetron ODT (Zofran-ODT) disintegrating tablet 8 mg 8 mg, Oral, EVERY 8 HOURS, 3 doses, First dose on Wed09/28/23 at 1800, Last dose on Wed09/29/23 at 1000, Recovery (Recovery-Hospital Unit), Routine Given 09/29/2023 9:23 AM EDT 8 mg Given 09/29/2023 2:37 AM EDT 8 mg Given 09/28/2023 6:26 PM EDT 8 mg pantoprazole (Protonix) injection 40 mg 40 mg, Intravenous, DAILY, First dose on Jaelyn 09/30/23 at 1845, Until Discontinued, Reconstitute with 10 mL of normal saline to a concentration of 4 mg/mL and inject slowly over 2 minutes. Given 10/04/2023 8:08 AM EDT 40 mg Given 10/03/2023 9:30 AM EDT 40 mg Given 10/02/2023 9:02 AM EDT 40 mg phenoL 1.4% (Chloraseptic) spray 1 spray 1 spray, Oral, EVERY 2 HOURS PRN, Starting on Jaelyn 09/30/23 at 2037, Until Wed10/04/23 at 1349, Irritation, Routine Given 10/01/2023 4:43 PM EDT 1 spray Given 10/01/2023 1:04 PM EDT 1 spray Given 10/01/2023 3:41 AM EDT 1 spray potassium chloride 10 mEq in sterile water 100 mL infusion 10 mEq, Intravenous, EVERY 2 HOURS, 1 dose, First dose on Wed10/01/23 at 0845, Administer over 60 Minutes, Doses of 20 mEq or greater require a Central Line Warning Vesicant/Irritant Medication New Bag 10/01/2023 8:11 AM EDT 10 mEq 100 mL/hr potassium chloride 10 mEq in sterile water 100 mL infusion 10 mEq, Intravenous, EVERY 2 HOURS, 4 doses, First dose (after last reorder) on 10/02/23 at 0800, Last dose on Wed10/02/23 at 1400, Administer over 60 Minutes, Doses of 20 mEq or greater require a Central Line Warning Vesicant/Irritant Medication New Bag 10/02/2023 3:43 PM EDT 10 mEq 100 mL/hr New Bag 10/02/2023 2:42 PM EDT 10 mEq 100 mL/hr New Bag 10/02/2023 1:41 PM EDT 10 mEq 100 mL/hr potassium chloride ER (Klor-Con M) crystal tablet 20 mEq 20 mEq, Oral, 3 TIMES DAILY, 3 doses, First dose on Wed10/03/23 at 0900, Last dose on Wed10/03/23 at 2100, potassium chloride ER particle/crystal tablets (Klor-Con M) may be broken in half and each half swallowed separately. Tablets can be dissolved in ~4 ounces of water; allow ~2 minutes to dissolve, stir well and drink immediately. Do not crush, chew, or suck on tablet., Routine Given 10/03/2023 7:52 PM EDT 20 mEq Given 10/03/2023 2:41 PM EDT 20 mEq Given 10/03/2023 9:30 AM EDT 20 mEq potassium chloride ER (Klor-Con M) crystal tablet 40 mEq 40 mEq, Oral, EVERY 4 HOURS, 2 doses, First dose (after last reorder) on Wed10/04/23 at 0745, Last dose on Wed10/04/23 at 1145, potassium chloride ER particle/crystal tablets (Klor-Con M) may be broken in half and each half swallowed separately. Tablets can be dissolved in ~4 ounces of water; allow ~2 minutes to dissolve, stir well and drink immediately. Do not crush, chew, or suck on tablet., Routine Given 10/04/2023 8:07 AM EDT 40 mEq prochlorperazine (Compazine) (5 mg/mL) injection 5 mg 5 mg, Intravenous, EVERY 30 MIN PRN, 2 doses, Starting on Wed09/28/23 at 1659, Until Wed09/28/23 at 1949, Nausea, Vomiting, If multiple antiemetics ordered, use ondansetron first and if ineffective use prochlorperazine or haloperidoL second, PACU Recovery, Routine Given 09/28/2023 6:41 PM EDT 5 mg sodium chloride 0.9 % (flush) (BD PosiFlush Normal Saline 0.9) flush 10 mL 10 mL, Intravenous, DAILY PRN, Starting on Wed09/28/23 at 1330, Until Wed09/28/23 at 1949, For use when accessing Implantable Port, Day of Surgery (Day of Procedure), Routine Given 09/28/2023 7:47 PM EDT 10 mLs sodium chloride 0.9 % (flush) (BD PosiFlush Normal Saline 0.9) flush 5 mL 5 mL, Intravenous, 2 TIMES DAILY, First dose on Wed09/28/23 at 2100, Until Discontinued, Recovery (Recovery-Hospital Unit), Routine Given 10/04/2023 8:08 AM EDT 5 mLs Given 10/03/2023 9:31 AM EDT 5 mLs Given 10/02/2023 8:23 PM EDT 5 mLs sodium chloride 0.9 % (flush) (BD PosiFlush Normal Saline 0.9) flush 5-20 mL 5-20 mL, Intravenous, EVERY 1 MIN PRN, Starting on Wed09/28/23 at 1740, Until Wed10/04/23 at 1349, flush, Flush pertains to all indwelling lines. Flush per protocol found in the job aid using the link provided on this medication record., Recovery (Recovery-Hospital Unit), Routine documented in this encounter Active and Recently Administered Medications Times are shown in EDT. Scheduled Medication Order 10/02/2023 10/03/2023 10/04/2023 acetaminophen (Ofirmev) (1,000 mg/100 mL) infusion 1,000 mg (COMPLETED) 1,000 mg, Intravenous, at 400 mL/hr, Administer over 15 Minutes, EVERY 6 HOURS, 4 doses, First dose (after last reorder) on Wed10/01/23 at 1100, Last dose on Wed10/02/23 at 0500, Maximum dose of acetaminophen is 4,000 mg from all sources in 24 hours. When ordered for pain, acetaminophen should be given even when other ordered pain medications are indicated., Routine, Is ketorolac (Toradol) IV contraindicated? Yes, Can this patient tolerate oral medications or suppositories? No 0522 (Given - Provider: Pattie Cyr RN) acetaminophen (Ofirmev) (1,000 mg/100 mL) infusion 1,000 mg (COMPLETED) 1,000 mg, Intravenous, at 400 mL/hr, Administer over 15 Minutes, EVERY 8 HOURS SCHEDULED, 3 doses, First dose (after last reorder) on 10/02/23 at 1100, Last dose on Wed10/03/23 at 0600, Maximum dose of acetaminophen is 4,000 mg from all sources in 24 hours. When ordered for pain, acetaminophen should be given even when other ordered pain medications are indicated., Routine, Is ketorolac (Toradol) IV contraindicated? Yes, Can this patient tolerate oral medications or suppositories? No 1150 (Given - Provider: Teresa Mann RN)2022 (Given - Provider: Pattie Cyr RN) 042 (Given - Provider: Pattie Cyr RN) acetaminophen (Tylenol) tablet 975 mg 975 mg, Oral, EVERY 6 HOURS SCHEDULED, First dose on Wed10/03/23 at 1200, Until Discontinued, Maximum dose of acetaminophen is 4,000 mg from all sources in 24 hours. When ordered for pain, acetaminophen should be given even when other ordered pain medications are indicated. , Routine 1143 (Given - Provider: Teresa Mann RN)1732 (Given - Provider: Teresa Mann RN) 0053 (Given - Provider: Diogenes Soni RN)0600 (Not Given - Provider: Diogenes Soni RN - Reason: Patient/family refused)1200 (Not Given - Provider: Kell Marquez RN - Reason: Patient/family refused) cyclobenzaprine (Flexeril) tablet 10 mg (COMPLETED) 10 mg, Oral, ONCE, 1 dose, On Wed10/02/23 at 2300, Routine 223 (Given - Provider: Pattie Cyr RN) enoxaparin (Lovenox) (40 mg/0.4 mL) subcutaneous injection 40 mg 40 mg, Subcutaneous, NIGHTLY, First dose on Wed09/28/23 at 2100, Until Discontinued, Routine 2022 (Given - Provider: Pattie Cyr RN) 195 (Given - Provider: Diogenes Soni RN)2100 (Not Given - Provider: Diogenes Soni RN - Reason: See comment - Comment: Patient requested this earlier) lidocaine (Lidoderm) 5% patch 3 patch 3 patch, Transdermal, Administer over 12 Hours, EVERY 24 HOURS, First dose (after last modification) on Wed09/29/23 at 1800, Until Discontinued, Apply patch(es) for 12 hours, and then remove for 12 hours., Routine 0519 (Patch Removed - Provider: Pattie Cyr RN)1752 (Patch Applied - Provider: Teresa Mann RN) 0552 (Patch Removed - Provider: Pattie Cyr RN)1731 (Patch Applied - Provider: Teresa Mann RN) 0531 (Patch Removed - Provider: Diogenes Soni RN) magnesium sulfate 1 g in dextrose 5% 100 mL infusion (COMPLETED) 1 g, Intravenous, ONCE, 1 dose, On 10/02/23 at 0800, Administer over 60 Minutes 0902 (New Bag - Provider: Teresa Mann RN)1016 (Stopped - Provider: Teresa Mnan RN) magnesium sulfate 1 g in dextrose 5% 100 mL infusion (COMPLETED) 1 g, Intravenous, ONCE, 1 dose, On 10/04/23 at 0745, Administer over 60 Minutes 0807 (New Bag - Provider: Kell Marquez, MANOHAR)0907 (Stopped - Provider: Kell Marquez RN) pantoprazole (Protonix) injection 40 mg 40 mg, Intravenous, DAILY, First dose on Jaelyn 09/30/23 at 1845, Until Discontinued, Reconstitute with 10 mL of normal saline to a concentration of 4 mg/mL and inject slowly over 2 minutes. 0902 (Given - Provider: Teresa Mann RN) 0930 (Given - Provider: Teresa Mann RN) 0808 (Given - Provider: Kell Marquez RN) potassium chloride 10 mEq in sterile water 100 mL infusion (COMPLETED) 10 mEq, Intravenous, EVERY 2 HOURS, 4 doses, First dose (after last reorder) on 10/02/23 at 0800, Last dose on 10/02/23 at 1400, Administer over 60 Minutes, Doses of 20 mEq or greater require a Central Line Warning Vesicant/Irritant Medication 1023 (New Bag - Provider: Teresa Mann RN)1340 (Stopped - Provider: Teresa Mann RN)1341 (New Bag - Provider: Teresa Mann, MANOHAR)1441 (Stopped - Provider: Teresa Mann RN)1442 (New Bag - Provider: Teresa Mann RN)1542 (Stopped - Provider: Venessa Bustillos, RN)1543 (New Bag - Provider: Venessa Bustillos, RN)1643 (Stopped - Provider: Teresa Mann, MANOHAR) potassium chloride ER (Klor-Con M) crystal tablet 20 mEq (COMPLETED) 20 mEq, Oral, 3 TIMES DAILY, 3 doses, First dose on Wed10/03/23 at 0900, Last dose on Wed10/03/23 at 2100, potassium chloride ER particle/crystal tablets (Klor-Con M) may be broken in half and each half swallowed separately. Tablets can be dissolved in ~4 ounces of water; allow ~2 minutes to dissolve, stir well and drink immediately. Do not crush, chew, or suck on tablet., Routine 0930 (Given - Provider: Teresa Mann RN)1441 (Given - Provider: Teresa Mann RN)195 (Given - Provider: Diogenes Soni RN)2100 (Not Given - Provider: Diogenes Soni RN - Reason: See comment - Comment: Patient requested this earlier) potassium chloride ER (Klor-Con M) crystal tablet 40 mEq 40 mEq, Oral, EVERY 4 HOURS, 2 doses, First dose (after last reorder) on Wed10/04/23 at 0745, Last dose on Wed10/04/23 at 1145, potassium chloride ER particle/crystal tablets (Klor-Con M) may be broken in half and each half swallowed separately. Tablets can be dissolved in ~4 ounces of water; allow ~2 minutes to dissolve, stir well and drink immediately. Do not crush, chew, or suck on tablet., Routine 0807 (Given - Provider: Kell Marquez RN)1145 (Due) sodium chloride 0.9 % (flush) (BD PosiFlush Normal Saline 0.9) flush 5 mL 5 mL, Intravenous, 2 TIMES DAILY, First dose on Wed09/28/23 at 2100, Until Discontinued, Recovery (Recovery-Hospital Unit), Routine 09 (Given - Provider: Teresa Mann RN)202 (Given - Provider: Pattie Cyr RN) 09 (Given - Provider: Teresa Mann RN)2100 (Not Given - Provider: Diogenes Soni RN - Reason: See comment - Comment: Patient requested this earlier) 0808 (Given - Provider: Kell Marquez RN) Continuous Medication Order 10/02/2023 10/03/2023 10/04/2023 lactated ringers infusion (CANCELED) 42 mL/hr, Intravenous, CONTINUOUS, Starting on Wed09/28/23 at 1800, Until Wed10/03/23 at 0845, Recovery (Recovery-Hospital Unit) 0552 (New Bag - Provider: Pattie Cyr RN)2022 (New Bag - Provider: Pattie Cyr RN) 0845 (Stopped - Provider: Teresa Mann, RN) PRN Medication Order 10/02/2023 10/03/2023 10/04/2023 cyclobenzaprine (Flexeril) tablet 10 mg 10 mg, Oral, 3 TIMES DAILY PRN, Starting on Wed10/03/23 at 0710, Until Wed10/04/23 at 1349, Muscle spasms, Routine 195 (Given - Provider: Diogenes Soni RN) hydrALAZINE (Apresoline) (20 mg/mL) injection 10 mg 10 mg, Intravenous, EVERY 4 HOURS PRN, Starting on Wed10/01/23 at 0543, Until Wed10/04/23 at 1349, High Blood Pressure, PRN for SBP >160 or HR >100, secondline 175 (Given - Provider: Teresa Mann, MANOHAR) HYDROmorphone (Dilaudid) (0.5 mg/0.5 mL) injection syringe 0.25 mg(Linked Group 1) 0.25 mg, Subcutaneous, EVERY 4 HOURS PRN, Starting on Wed09/28/23 at 1730, Until Wed10/04/23 at 1349, Pain, Moderate pain (4-6), if given subcutaneously, do not administer more than 3 mL as a single injection For adults, may give in place of other agent(s) ordered for pain (7-10) at patient request., Routine HYDROmorphone (Dilaudid) (0.5 mg/0.5 mL) injection syringe 0.25 mg 0.25 mg, Intravenous, EVERY 4 HOURS PRN, Starting on Wed09/28/23 at 1730, Until Wed10/04/23 at 1349, Pain, rescue dose, For moderate or severe pain (4-10) unrelieved at least 1 hour after initial PRN dose was administered. Max 3 doses/24 hours. If pain still unrelieved after 3rd rescue dose within 24 hours, contact provider., Routine HYDROmorphone (Dilaudid) (0.5 mg/0.5 mL) injection syringe 0.5 mg(Linked Group 1) 0.5 mg, Subcutaneous, EVERY 4 HOURS PRN, Starting on Wed09/28/23 at 1730, Until Wed10/04/23 at 1349, Pain, Severe pain (7-10), if given subcutaneously, do not administer more than 3 mL as a single injection, Routine influenza vaccine adjuvanted (Adult 65 Yrs +) (FluAD Quad) (PF) IM injection 0.5 mL 0.5 mL, Intramuscular, PRIOR TO DISCHARGE, 1 dose, Starting on Wed09/29/23 at 1632, Until Wed10/04/23 at 1349, Per Protocol, Routine labetaloL (Normodyne) (5 mg/mL) injection solution 20 mg 20 mg, Intravenous, EVERY 2 HOURS PRN, Starting on Wed10/01/23 at 0200, Until Wed10/04/23 at 1349, High Blood Pressure, PRN for SBP >160, hold for HR <60, Routine 0521 (Given - Provider: Pattie Cyr RN)1314 (Given - Provider: Teresa Mann RN)1555 (Given - Provider: Teresa Mann RN)2023 (Given - Provider: Pattie Cyr RN) 0428 (Given - Provider: Pattie Cyr RN) lidocaine (Xylocaine) 1% (10 mg/mL) injection 3 mg 3 mg (0.3 mL), Subcutaneous, ONCE PRN, 1 dose, Starting on Wed09/30/23 at 0601, Until Wed10/04/23 at 1349, for discomfort with PIV insertion, Recovery (Recovery-Hospital Unit), Routine ondansetron (pf) (Zofran) (2 mg/mL) injection 8 mg 8 mg, Intravenous, EVERY 8 HOURS PRN, Starting on Wed09/29/23 at 1806, Until Wed10/04/23 at 1349, Nausea 0548 (Given - Provider: Marlyn Aviles RN)1619 (Given - Provider: Teresa Mann RN) phenoL 1.4% (Chloraseptic) spray 1 spray 1 spray, Oral, EVERY 2 HOURS PRN, Starting on Wed09/30/23 at 2037, Until Wed10/04/23 at 1349, Irritation, Routine sodium chloride 0.9 % (flush) (BD PosiFlush Normal Saline 0.9) flush 5-20 mL 5-20 mL, Intravenous, EVERY 1 MIN PRN, Starting on Wed09/28/23 at 1740, Until Wed10/04/23 at 1349, flush, Flush pertains to all indwelling lines. Flush per protocol found in the job aid using the link provided on this medication record., Recovery (Recovery-Hospital Unit), Routine Linked Groups Order Group 1: HYDROmorphone (Dilaudid) (0.5 mg/0.5 mL) injection syringe 0.25 mgJump to med 0.25 mg, Subcutaneous, EVERY 4 HOURS PRN, Starting on Wed09/28/23 at 1730, Until Wed10/04/23 at 1349, Pain, Moderate pain (4-6), if given subcutaneously, do not administer more than 3 mL as a single injection For adults, may give in place of other agent(s) ordered for pain (7-10) at patient request., Routine Or HYDROmorphone (Dilaudid) (0.5 mg/0.5 mL) injection syringe 0.5 mgJump to med 0.5 mg, Subcutaneous, EVERY 4 HOURS PRN, Starting on Wed09/28/23 at 1730, Until Wed10/04/23 at 1349, Pain, Severe pain (7-10), if given subcutaneously, do not administer more than 3 mL as a single injection, Routine documented in this encounter Care Teams Numerical Control Machine Tool Operator Relationship Specialty Start Date End Date Hina Johnson [address] [place] [address] PCP - General Family Medicine 06/25/23 documented as of this encounter
--- OUTSIDE RECORDS SUMMARY | 2024-01-26 03:08 | XMS_ITS | Encounter Summary ---
Author Organization [facility] Address [facility] [place] [address] Care Team Providers Care Meat Trimmer Name Role Phone CristobalElizaHina Primary Care Provider Encounter Details Date Type Department Care Team (Late st Contact Info) Description 09/10/2023 11:00 AM EDT Office Visit Hematology/Oncology at [address] [phone] Derek Lindquist MD [facility] [place] [address] Ann Tello APRN [address] [place] [address] DR HEMATOLOGY AND ONCOLOGY [place], [place] [id number] Primary adenocarcinoma of ascending colon Social History Tobacco Use Types Packs/Day Years [...] Sign Reading Time Taken Comments Blood Pressure 170/98 09/10/2023 10:52 AM EDT Pulse 98 09/10/2023 10:52 AM EDT Temperature 37 ??C (98.6 ??F) 09/10/2023 10:52 AM EDT Respiratory Rate 18 09/10/2023 10:52 AM EDT Oxygen Saturation 99% 09/10/2023 10:52 AM EDT Inhaled Oxygen Concentration - - Weight 88.5 kg (195 lb) 09/10/2023 10:52 AM EDT Height 158.4 cm (5' 2.36) 09/10/2023 10:52 AM E DT Body Mass Index 35.25 09/10/2023 10:52 AM EDT documented in this encounter Progress Notes * Ann Tello APRN - 09/10/2023 11:00 AM EDT Subjective Patient ID: Blanca Lujan is 67 y.o. 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 Fibroid uterus [place] [place] - IMPRESSION 1. Unexpected findings [...] progressive sites of metastatic disease are identified. 2. Anxiety and depression 3. PTSD 4. ADHD 5. ZARA 6. 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 The history is summarized above. Blanca is accompanied to clinic today by her daughter Kera. She saw Dr. Garcia yesterday to complete surgery planning, which is currently scheduled for 09/27. She is generally feeling well, has been busier than usual so she's a bit tired from those commitments. Soc Hx:Lives in [place], [place] Tob - Quit in 2010 Etoh - [...] this with her PCP. Review of Systems Constitutional: Positive for fatigue. Negative for activity change, appetite change and unexpected weight change. Respiratory: Negative. Cardiovascular: Negative. Gastrointestinal: Negative. Genitourinary: Negative. Musculoskeletal: Negative. Neurological: Negative. Psychiatric/Behavioral: Negative. Objective Physical Exam Vitals reviewed. Constitutional: General: She is not in acute distress. HENT: Head: Normocephalic and atraumatic. Nose: No rhinorrhea. Eyes: General: No scleral icterus. Cardiovascular: Rate and Rhythm: Normal rate. Pulmonary: Effort: Pulmonary effort is normal. No respiratory distress. Musculoskeletal: General: No swelling. Skin: General: Skin is warm and dry. Coloration: Skin is not jaundiced. Findings: No rash. Neurological: General: No focal deficit present. Mental Status: She is alert. Coordination: Coordination normal. Psychiatric: Mood and Affect: Mood normal. ECOG PS - 1 BP (!) 170/98 (Patient Position: Sitting) Pulse 98 Temp 37 ??C (98.6 ??F) (Temporal) Resp 18 Ht 158.4 cm (5' 2.36) Wt 88.5 kg (195 lb) SpO2 99% BMI 35.25 kg/m?? Labs: Latest Reference Range & Units 09/09/23 14:00 WBC 4.0 - 9.5 x10(3)/mcL 10.1 (H) RBC 4.00 - 5.21 x10(6)/mcL 4.29 Hemoglobin 11.7 - 15.5 g/dL 13.8 Hematocrit 35.7 - 45.8 % 39.0 MCV 82.6 - 94.4 fL 90.9 MCH 27.1 - 32.0 pg 32.2 (H) MCHC 31.7 - 35.0 g/dL 35.4 (H) RDWSD 37.0 - 46.0 fL 44.2 RDWCV 11.5 - 14.1 % 13.2 Platelets 145 - 357 x10(3)/mcL 193 MPV 7.6 - 12.9 fL 10.0 nRBC % Auto % 0.0 nRBC Abs Auto 0.000 - 0.000 x10(3)/mcL 0.000 Neutr Abs (ANC) 1.70 - 6.10 x10(3)/mcL 6.49 (H) Neutrophils % % 64.4 Immature Gran % % 0.70 Lymphocytes % % 24.6 Monocytes % % 8.3 Eosinophils % % 1.3 Basophils % % 0.7 Nini Gran Abs 0.00 - 0.04 x10(3)/mcL 0.07 (H) Lymphocytes Abs 0.9 - 3.2 x10(3)/mcL 2.5 Monocyte Abs 0.3 - 0.9 x10(3)/mcL 0.8 Eosinophils Abs 0.0 - 0.4 x10(3)/mcL 0.1 Basophils Abs 0.0 - 0.1 x10(3)/mcL 0.1 Sodium 135 - 145 mmol/L 140 Potassium 3.5 - 5.0 mmol/L 3.9 Chloride 98 - 107 mmol/L 104 CO2 22 - 31 mmol/L 26 Anion Gap 5 - 15 mmol/L 10 BUN 8 - 18 mg/dL 18 Creatinine 0.70 - 1.20 mg/dL 0.64 (L) Estimated GFR >=60 mL/min/1.73 m?? 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 Lindquist spoke with Dr. Garcia on 04/07/23. She discussed the case with Dr. Juarez (re: CRS and Hipec) and the recommendation was for chemotherapy. The tumor was considered unresectable. Depending on response, this could be revisited A restaging CT scan was done on 04/14/23, report above. The appendiceal tumor is stable. There is mild increase in regional nodes. There was some question as to the nature of the multiloculated fluid collection (eg tumor vs infection). However, she was afebrile and without an elevated white count and Dr. Garcia feels this represents tumor. A referral to the [facility] due to concern for a polyposis syndrome. On 04/16/23 she began therapy with Folfox and received 8 cycles (the last given 08/06/23). She had a CT scan done on 08/11/23 which shows evidence of continued response. She has talked with Dr. Garcia about this and the plan is for resection in mid September. She came in today to review the plan and plan for appropriate post- operative follow up. documented in this encounter Plan of Treatment Upcoming Encounters Date Type Department Care Team (Late st Contact Info) Description 01/28/2024 10:30 AM EDT Office Visit Hematology/Oncolog y at [address] [phone] Derek Lindquist MD [facility] [place] [address] Ann Tello APRN [address] [place] [address] DR HEMATOLOGY [place] [address] 03/24/2024 1:00 PM EDT Hospital En[place] [phone] Shilo Lopez MD [facility] [place] [address] 03/24/2024 1:00 PM EDT - 03/24/2024 1:45 PM EDT [place] [phone] Shilo Lopez MD [facility] [place] [address] COLONOSCOPY, DIAGNOSTIC (WRVU 3.26) Scheduled Procedures Name Priority Associated Diagnoses Date/Ti ut COLONOSCOPY, DIAGNOSTIC (WRVU 3.26) Procedure: Colonoscopy Indication: Malignant neoplasm of colon, unspecified part of colon and History of partial colectomy Sedation: IVCS Timeframe: within 2 weeks Specific provider: first available OV needed: No Anticoagulation status: no documented anticoagulation use 03/24/2024 1:00 PM EDT documented as of this encounter Visit Diagnoses Diagnosis Primary adenocarcinoma of ascending colon documented in this encounter Care Teams Meat Trimmer Relationship Specialty Start Date End Date Hina Johnson [address] [place] [address] PCP - General Family Medicine 06/25/23 documented as of this encounter
--- OUTSIDE RECORDS SUMMARY | 2024-01-26 03:08 | XMS_ITS | Encounter Summary ---
Author Organization [facility] [place] [address] Care Team Providers Care Home Care Physical Therapist Name Role Phone CristobalEliza Hina Primary Care Provider [phone] Reason for Visit * Reason Onset Date Comments Results 09/10/2023 Encounter Details Date Type Department Care Team (Late st Contact Info) Description 09/10/2023 Telephone Hematology [place] [address] Michelle Corona [facility] HEMATOLOGY [place] [address] Results Social History Tobacco Use Types Packs/Day Years [...] encounter Miscellaneous Notes * Telephone Encounter - Michelle Mclean LGC - 09/13/2023 3:47 AM EDT A copy of the test results have been scanned in the medical record and sent to Blanca. A summary of the results is provided below. Please be advised that [place] law requires that all health care workers respect the confidentiality of this information and not pass it along to other health careproviders, insurance companies, or individuals without the written permission of the patient. The [facility] welcomes any questions about these matters. Our phone number is: [phone]. On 06/30/2023 Blanca was seen for genetic counseling and subsequently underwent genetic testing for a hereditary predisposition to cancers in eight major organ systems including breast, gynecologic, gastrointestinal, endocrine, genitourinary, skin, brain/nervous system, sarcoma and hematologic. Following are the results of this test. Result: [facility]'s CancerNext-Expanded Panel showed no mutation was detected. This means that Blanca does not carry a mutation in the genes detectable by this test. The following 71 genes were analyzed: AIP, ALK, APC, JUAN PABLO, BAP1, BARD1, BMPR1A, BRCA1, BRCA2, BRIP1, CDC73, CDH1, CDK4, CDKN1B, CDKN2A, CHEK2, DICER1, FH, FLCN, KIF1B, LZTR1, MAX, MEN1, MET, MLH1, MSH2, MSH6, MUTYH, NF1, NF2, NTHL1, PALB2, PHOX2B,PMS2, POT1, SUOXQ6I, PTCH1, PTEN, RAD51C, RAD51D, RB1, RET, SDHA, SDHAF2, SDHB, SDHC, SDHD, SMAD4, SMARCA4, SMARCB1, SMARCE1, STK11, SUFU, UABW796, TP53, TSC1, TSC2 and VHL (sequencing and deletion/duplication); AXIN2, CTNNA1, EGFR, EGLN1, HOXB13, KIT, MITF, MSH3, PDGFRA, POLD1 and POLE (sequencingonly); EPCAM and GREM1 (deletion/duplication only) A variant of uncertain significance (VUS) was detected in the APC gene, specifically c.4142C>A ([id number]). Interpretation: This test did not identify an underlying genetic cause for the personal and family history of cancer. Possible explanations for this negative test result include: Blanca's cancer and the cancer in her family may be due to non genetic, environmental causes. There could be a mutation in Blanca's family that Blanca did not inherit There could be mutations in other cancer genes not included in this test, or in genes yet to be discovered. There is a very small chance that a pathogenic variant/mutation could be missed due to limitations in the testing. Based on these results, Blanca's daughter does not need genetic testing for hereditary cancer risk due to their maternal family history. If their father's family history is of concern, we would recommend further evaluation of that side of the family by a genetic counselor. Additional germline genetic testing for Blanca is not recommended at this time. Variant of Uncertain Significance (VUS) It is unclear at this time whether the APC VUS identified in Blanca is a cancer- associated mutation or a benign change in the gene with no increased cancer risks. [facility] is continually collecting and analyzing their data, in an effort to reclassify these variants as either cancer-causing mutations orbenign changes. It is important to remember that a vast majority of variants of uncertain significance are normal, benign changes in the gene. We will be contacted by the laboratory, in the future, if a reclassification is made and we would then notify Blanca. It is important that Blanca's phone number and mailing address stay updated in the [facility] system, in order for us to reach her in the future, should an amended report be issued. Family members should NOT be tested for the variant of uncertain significance identified in Blanca in order to find out their own cancer risks. Screening Recommendations Based on genetic test results and personal and/or family history, we recommend: Breast cancer screening Be aware of any breast changes and share concerns with primary care provider Annual clinical breast exams Annual mammograms/Biennial or annual tomosynthesis (3D mammogram) starting between the ages of 40-50 upon shared decision making with Blanca's primary care provider, taking patient preference into account. Gynecologic cancer screening Pelvic exams and/or Pap smears as recommended by Blanca's radio personality or primary care provider. Colon cancer screening Baseline colorectal cancer screening starting by age 45-50 is important for everyone, regardless ofgenetic predisposition. Periodic colonoscopy screening as recommended by Blanca's car mover. Skin cancer screening Skin cancer screening and sun protection are important for everyone, regardless of genetic predisposition. Consideration of routine dermatologic/skin exams, as recommended by Blanca's primary care provider or drum filler. documented in this encounter Plan of Treatment Upcoming Encounters Date Type Department Care Team (Late st Contact Info) Description 01/28/2024 10:30 AM EDT Office Visit Hematology/Oncolog y at [address] [address] Derek Lindquist MD [facility] [place] [address] Ann Tello, [address] HEMATOLOGY AND ONCOLOGY [place], [place] [address] 03/24/2024 1:00 PM EDT Hospital En[place] [phone] Shilo Lopez MD [facility] [place] [address] 03/24/2024 1:00 PM EDT - 03/24/2024 1:45 PM EDT [place] [phone] Shilo Lopez MD [facility] [place] [address] COLONOSCOPY, DIAGNOSTIC (WRVU 3.26) Scheduled Procedures Name [...] on filedocumented in this encounter Care Teams Home Care Physical Therapist Relationship Specialty Start Date End Date Hina Johnson [address] [place] [address] PCP - General Family Medicine 06/25/23 documented as of this encounter
--- OUTSIDE RECORDS SUMMARY | 2024-01-26 03:08 | XMS_ITS | Encounter Summary ---
Author Organization [facility] Address [facility] [place] [address] Care Team Providers Care Medical Payment Poster Name Role Phone Hina Johnson Primary Care Provider [phone] Encounter Details Date Type Department Care Team (Latest Contact Info) Description 08/11/2023 Travel Social History Tobacco Use Types Packs/Day [...] EDT Office Visit Hematology/Oncolog y at [address] [phone] Derek Lindquist MD [facility] [place] [address] Ann Tello APRN [address] [place] [address] DR [place]ATOLOGY [place] [address] 03/24/2024 1:00 PM EDT Hospital Encounter [place] [address] Shilo Lopez MD [facility] [place] [address] 03/24/2024 1:00 PM EDT - 03/24/2024 1:45 PM EDT Surgery [place] [address] Shilo Lopez MD [facility] [place] [address] COLONOSCOPY, DIAGNOSTIC (WRVU 3.26) Scheduled Procedures Name [...] on filedocumented in this encounter Care Teams Medical Payment Poster Relationship Specialty Start Date End Date Hina Johnson [address] [place] [address] PCP - General Family Medicine 06/25/23 documented as of this encounter
--- OUTSIDE RECORDS SUMMARY | 2024-01-26 03:08 | XMS_ITS | Encounter Summary ---
Author Organization [facility] Address [facility] [place] [address] Care Team Providers Care Weaver Needle Loom Name Role Phone CristobalElizaHina Primary Care Provider [phone] Encounter Details Date Type Department Care Team (Late st Contact Info) Description 08/13/2023 2:00 PM EST Office Visit Hematology/Oncology at [address] [phone] Derek Lindquist MD [facility] [place] [address] Ann Tello APRN [address] [place] [address] DR HEMATOLOGY [place] [address] Primary adenocarcinoma of ascending colon; INR (international normal ratio) abnormal Social History Tobacco Use Types Packs/Day Years [...] Sign Reading Time Taken Comments Blood Pressure 159/88 08/13/2023 1:54 PM EST Pulse 111 08/13/2023 1:54 PM EST Temperature 36.9 ??C (98.4 ??F) 08/13/2023 1:54 PM ES T Respiratory Rate 18 08/13/2023 1:54 PM EST Oxygen Saturation 99% 08/13/2023 1:54 PM EST Inhaled Oxygen Concentration - - Weight 86.8 kg (191 lb 6.4 oz) 08/13/2023 1:54 P M EST Height 158.4 cm (5' 2.36) 08/13/2023 1:54 PM ES T Body Mass Index 34.6 08/13/2023 1:54 PM EST documented in this encounter Progress Notes * Derek Lindquist MD - 08/13/2023 2:00 PM EST Subjective Patient ID: Blanca Lujan is 67 [...] evidence of acute diverticulitis 5. Fibroid uterus ([facility] second read) - IMPRESSION 1. Unexpected findings [...] clinic today by her daughter Kera. She had cycle 8 of Folfox on 08/06/23. She has had side effects related to that but is looking forward to traveling back to [place] next week. She has a difficult time with the winter anyway but adding chemotherapy to that has been very hard for her and she feels like she is on the edge. She had a CT scan done on 08/11/23 which shows evidence of continued response. She has talked with Dr. Garcia about this and the plan is for resection in mid September. She came in today because she would like to see the actual images. Soc Hx:Lives in [place], [place] Tob - Quit in 2010 Etoh - [...] ECOG PS - 1 Labs: WBC/ANC - 5.08/2619, Hgb/Hct - 12.6/36.8, Plts - 155,000. BUN/Cr - 16/0.8. Glucose - 119, Alb - 3.3. Lytes and LFTs o/w unremarkable. CEA 08/05/23 3.5 07/22/23 3.3 07/08/23 2.9 06/24/23 [...] in mid September. She came in today mainly to review the CT images and we went over them together. documented in this encounter Plan of Treatment Upcoming Encounters Date Type Department Care Team (Late st Contact Info) Description 01/28/2024 10:30 AM EDT Office Visit Hematology/Oncolog y at [address] [phone] Derek Lindquist MD [facility] [place] [address] Ann Tello APRN [address] [place] [address] DR HEMATOLOGY [place] [address] 03/24/2024 1:00 PM EDT Hospital En[place] [address] Shilo Lopez MD [facility] [place] [address] 03/24/2024 1:00 PM EDT - 03/24/2024 1:45 PM EDT [place] [address] Shilo Lopez MD [facility] [place] [address] COLONOSCOPY, DIAGNOSTIC (WRVU 3.26) Scheduled Procedures Name Priority Associated Diagnoses Date/Ti ct COLONOSCOPY, DIAGNOSTIC (WRVU 3.26) Procedure: Colonoscopy Indication: Malignant neoplasm of colon, unspecified part of colon and History of partial colectomy Sedation: IVCS Timeframe: within 2 weeks Specific provider: first available OV needed: No Anticoagulation status: no documented anticoagulation use 03/24/2024 1:00 PM EDT documented as of this encounter Results * CEA (09/09/2023 2:00 PM EDT) Carcinoembryonic Antigen 2.9 <=3.8 ng/mL [facility] Comment: Reference range: ??(20-69 years): Non-smoker: ??less than or equal to 3.8 ng/mL Smoker: ??less than 5.5 ng/ml This result was generated using a Steven Grisel immunoassay. ??Results obtained from other methods or manufacturers cannot be used interchangeably with this method. Blood 09/09/2023 2:00 PM EDT 09/09/2023 2:18 PM EDT Narrative Resulting Agency Comment Spec In Lab Derek Lindquist MD CHEMISTRY ORDERABLES [facility] [place] [address] * (ABNORMAL) Comprehensive metabolic panel (non-fasting) (09/09/2023 2:00 PM EDT) Glucose 132 65 - 199 mg/dL [facility] Comment:Diabetes: >=200 mg/d L plus symptoms Blood Urea Nitrogen 18 8 - 18 mg/dL [facility] Creatinine 0.64(L) 0.70 - 1.20 mg/dL [facility] Sodium 140 135 - 145 mmol/L [facility] Potassium 3.9 3.5 - 5.0 mmol/L [facility] Comment: Please note: ??Patients with WBC >100,000 may have falsely elevated Potassium levels. ??For accurate Potassium quantification in these patients send serum separator tube (gold top) for subsequent determinations. ??Contact the Clinical Chemistry Laboratory if there are any questions. Chloride 104 98 - 107 mmol/L [facility] Carbon Dioxide 26 22 - 31 mmol/L [facility] Anion Gap 10 5 - 15 mmol/L [facility] Calcium 9.5 8.5 - 10.5 mg/dL [facility] Protein, Total 7.0 6.1 - 8.0 g/dL [facility] Albumin 4.4 3.2 - 5.2 g/dL [facility] Aspartate Aminotransferase 21 0 - 30 unit/L [facility] Alanine Aminotransferase 26 0 - 30 unit/L [facility] Alkaline Phosphatase 85 35 - 105 unit/L [facility] Bilirubin, Total <0.2(L) 0.2 - 1.3 mg/dL [facility] Est Glomerular Filtration Rate 98 >=60 mL/min/1. 73 m?? [facility] Comment: This patient's estimated GFR [...] and symptoms in addition to eGFR. Blood 09/09/2023 2:00 PM EDT 09/09/2023 2:18 PM EDT Narrative Resulting Agency Comment Spec In Lab Derek Lindquist MD CHEMISTRY ORDERABLES Performing Organization Address City/State/[facility] Co de Phone Number [facility] [place] [address] documented in this encounter Visit Diagnoses Diagnosis Primary adenocarcinoma of ascending colon INR (international normal ratio) abnormal Abnormal coagulation profile documented in this encounter Care Teams Weaver Needle Loom Relationship Specialty Start Date End Date Hina Johnson [address] [place] [address] PCP - General Family Medicine 06/25/23 documented as of this encounter
--- OUTSIDE RECORDS SUMMARY | 2024-01-26 03:08 | XMS_ITS | Encounter Summary ---
Author Organization [facility] Address [facility] [place] [address] Care Team Providers Care Press Operator Apprentice Name Role Phone Hina Johnson Primary Care Provider [phone] Encounter Details Date Type Department Care Team (Latest Contact Info) Description 08/06/2023 Travel Social History Tobacco Use Types Packs/Day [...] AM EDT Office Visit Hematology/Oncolog y at [address] [phone] Derek Lindquist MD [facility] [place] [address] Ann Tello APRN [address] [place] [address] DR HEMATOLOGY [place] [address] 03/24/2024 1:00 PM EDT Hospital Encounter [place] [address] Shilo Lopez MD [facility] [place] [address] 03/24/2024 1:00 PM EDT - 03/24/2024 1:45 PM EDT Surgery [place] [address] Shilo Lopez MD [facility] [place] [address] COLONOSCOPY, DIAGNOSTIC (WRVU 3.26) Scheduled Procedures Name [...] on filedocumented in this encounter Care Teams Press Operator Apprentice Relationship Specialty Start Date End Date Hina Johnson [address] [place] [address] PCP - General Family Medicine 06/25/23 documented as of this encounter
--- OUTSIDE RECORDS SUMMARY | 2024-01-26 03:08 | XMS_ITS | Encounter Summary ---
Author Organization [facility] Address [facility] [address] Care Team Providers Care Cement Truck Loader Name Role Phone SharicathydahliaHina Kay Primary Care Provider [phone] Reason for Visit * Reason Comments IV Medication IVF * Treatment/Therapy Plan Authorization (Routine) - Pending Review Specialty Diagnoses / Procedures Referred By Contac t Referred To Contact Hematology and Oncology Diagnoses Adenocarcinoma, appendix Procedures Hydration / Electrolytes / Antiemetics ([facility]) - Ann Tello APRN [address] [place] [address] [place] [address] Stj Hem Onc Infusion [address] [place] [phone] Referral ID Status Reason Start Date Expiration Date V isits Requested Visits Authorized [id number] Pending Review 08/09/2023 08/08/2024 99 99 Encounter Details Date Type Department Care Team (Late st Contact Info) Description 08/09/2023 1:00 PM EST Infusion Hematology Oncology at [address] [phone] Adenocarcinoma, appendix Social History Tobacco Use Types [...] Sign Reading Time Taken Comments Blood Pressure 146/73 08/09/2023 1:12 PM EST Pulse 96 08/09/2023 1:12 PM EST Temperature 36.9 ??C (98.4 ??F) 08/09/2023 1:12 PM ES T Respiratory Rate 18 08/09/2023 1:12 PM EST Oxygen Saturation 97% 08/09/2023 1:12 PM EST Inhaled Oxygen Concentration - - Weight 88.2 kg (194 lb 6.4 oz) 08/09/2023 1:09 P M EST Height - - Body Mass Index 35.14 08/06/2023 10:18 AM EST documented in this encounter Progress Notes * Kim Schmid RN - 08/09/2023 1:00 PM EST INFUSION THERAPY ADMINISTRATION NOTES DIAGNOSIS: Colon CA REASON FOR VISIT: Hydration SUBJECTIVE Blanca states that she's had a rough day and usually does on this day after her infusion. OBJECTIVE IV ACCESS: Mediport accessed in clinic. Flushes with brisk blood return. REACTIONS (DESCRIPTION, TIME, INTERVENTION AND EFFECTIVENESS) none ASSESSMENT Blanca was awake, alert and tolerated treatment well. Port flushed with 20cc NS after completion of treatment and left accessed for tomorrow's planned treatment. PLAN Return to clinic tomorrow for IVF. documented in this encounter Plan of Treatment Upcoming Encounters Date Type Department Care Team (Late st Contact Info) Description 01/28/2024 10:30 AM EDT Office Visit Hematology/Oncolog y at [address] [phone] Derek Lindquist MD [facility] [place] [address] Ann Tello APRN [address] [place] [address] [place] [address] 03/24/2024 1:00 PM EDT Hospital Encounter [place] [address] Shilo Lopez MD [facility] [place] [address] 03/24/2024 1:00 PM EDT - 03/24/2024 1:45 PM EDT Surgery Gastroenterology at [facility] [place] [address] Shilo Lopez MD [facility] [place] [address] COLONOSCOPY, DIAGNOSTIC (WRVU 3.26) Scheduled Procedures Name [...] MAR Action Action Date Dose Rate Site sodium chloride 0.9% infusion 500 mL/hr, Intravenous, CONTINUOUS, Starting on Wed08/09/23 at 1345, Until Wed08/09/23 at 1850, Select an infusion rate (in mL/hour) from dose field. Then define the total infusion duration: 2 hours. New Bag 08/09/2023 1:36 PM EST 500 mL/hr 500 mL/hr documented in this encounter Care Teams Cement Truck Loader Relationship Specialty Start Date End Date Hina Johnson [address] [place] [address] PCP - General Family Medicine 06/25/23 documented as of this encounter
--- OUTSIDE RECORDS SUMMARY | 2024-01-26 03:08 | XMS_ITS | Encounter Summary ---
Author Organization [facility] Address [facility] [place] [address] Care Team Providers Care Buckle Wire Inserter Name Role Phone Hina Johnson Primary Care Provider [phone] Encounter Details Date Type Department Care Team (Latest Contact Info) Description 08/09/2023 Travel Social History Tobacco Use Types Packs/Day [...] AM EDT Office Visit Hematology/Oncolog y at [address] [phone] Derek Lindquist MD [facility] [place] [address] Ann Tello APRN [address] [place] [address] DR HEMATOLOGY [place] [address] 03/24/2024 1:00 PM EDT Hospital Encounter [place] [address] Shilo Lopez MD [facility] [place] [address] 03/24/2024 1:00 PM EDT - 03/24/2024 1:45 PM EDT Surgery [place] [address] Shilo oLpez MD [facility] [place] [address] COLONOSCOPY, DIAGNOSTIC (WRVU 3.26) Scheduled Procedures Name [...] on filedocumented in this encounter Care Teams Buckle Wire Inserter Relationship Specialty Start Date End Date Hina Johnson [address] [place] [address] PCP - General Family Medicine 06/25/23 documented as of this encounter
--- OUTSIDE RECORDS SUMMARY | 2024-01-26 03:08 | XMS_ITS | Encounter Summary ---
Author Organization Formerly [facility] Address [facility] [place] [address] Care Team Providers Care Parts Salesperson Name Role Phone SharicathydahliaHina Kay Primary Care Provider [phone] Reason for Visit * Reason Comments IV Medication Hydration * Treatment/Therapy Plan Authorization (Routine) - Pending Review Specialty Diagnoses / Procedures Referred By Contac t Referred To Contact Hematology and Oncology Diagnoses Adenocarcinoma, appendix Procedures Hydration / Electrolytes / Antiemetics ([facility] - Ann Tello APRN [address] [place] [address] DR HEMATOLOGY [place] [address] Stj Hem Onc Infusion [address] [place] [phone] Referral ID Status Reason Start Date Expiration Date V isits Requested Visits Authorized [id number] Pending Review 08/09/2023 08/08/2024 99 99 Encounter Details Date Type Department Care Team (Late st Contact Info) Description 08/10/2023 11:30 AM EST Infusion Hematology Oncology at [address] [phone] Adenocarcinoma, appendix Social History Tobacco [...] Sign Reading Time Taken Comments Blood Pressure 154/88 08/10/2023 11:20 AM EST Pulse 112 08/10/2023 11:20 AM EST Temperature 36.7 ??C (98 ??F) 08/10/2023 11:20 AM EST Respiratory Rate 18 08/10/2023 11:20 AM EST Oxygen Saturation 97% 08/10/2023 11:20 AM EST Inhaled Oxygen Concentration - - Weight 87.3 kg (192 lb 6.4 oz) 08/10/2023 11:20 AM EST Height 158.4 cm (5' 2.36) 08/10/2023 11:[address] Body Mass Index 34.78 08/10/2023 11:20 AM EST documented in this encounter Progress Notes * Leann Veliz RN - 08/10/2023 11:30 AM EST INFUSION THERAPY ADMINISTRATION NOTES DIAGNOSIS: Colon/Appendix Cancer REASON FOR VISIT: Hydration SUBJECTIVE Blanca is nauseous today. She states she uses tea to help with nausea. It does not have caffeine in it. She offers she could be drinking more fluids. Overall she is feel better. This is the best she has felt on a Wednesday/Wednesday after treatment. OBJECTIVE IV ACCESS: Mediport left accessed for CT tomorrow. REACTIONS (DESCRIPTION, TIME, INTERVENTION AND EFFECTIVENESS) none ASSESSMENT Blanca was awake, alert and tolerated treatment well. PLAN Return to clinic per routine. CT tomorrow at [facility]. documented in this encounter Plan of Treatment Upcoming Encounters Date Type Department Care Team (Late st Contact Info) Description 01/28/2024 10:30 AM EDT Office Visit Hematology/Oncolog y at [address] [phone] Derek Lindquist MD [facility] [place] [address] Ann Tello APRN [address] [place] [address] DR HEMATOLOGY [place] [address] 03/24/2024 1:00 PM EDT Hospital Encounter [place] [address] Shilo Lopez MD [facility] [place] [address] 03/24/2024 1:00 PM EDT - 03/24/2024 1:45 PM EDT Surgery [place] [address] Shilo Lopez MD [facility] [place] [address] COLONOSCOPY, DIAGNOSTIC (WRVU 3.26) Scheduled Procedures Name [...] infusion 500 mL/hr, Intravenous, CONTINUOUS, Starting on Wed08/10/23 at 1130, Until Wed08/10/23 at 1536, Select an infusion rate (in mL/hour) from dose field. Then define the total infusion duration: 2 hours. New Bag 08/10/2023 11:31 AM EST 500 mL/hr 500 mL/hr documented in this encounter Care Teams Parts Salesperson Relationship Specialty Start Date End Date Hina Johnson [address] [place] [address] PCP - General Family Medicine 06/25/23 documented as of this encounter
--- OUTSIDE RECORDS SUMMARY | 2024-01-26 03:08 | XMS_ITS | Encounter Summary ---
Author Organization [facility] [place] [address] Care Team Providers Care Gardening Instructor Name Role Phone SharicathydahliaHina Kay Primary Care Provider Reason for Referral * Diagnostic Test (Routine) - Closed Specialty Diagnoses / Procedures Referred By Contac t Referred To Contact Radiology Diagnoses Malignant neoplasm of ascending colon Procedures CT Chest Abdomen Pelvis w Contrast (Generic) Derek Lindquist MD [facility] [place] [address] [facility] [place] [address] Referral ID Status Reason Start Date Expiration Date V isits Requested Visits Authorized [id number] Closed Specialty Service Requested 08/06/2023 02/03/2025 1 1 Reason for Visit * Diagnostic Test (Routine) - Closed Specialty Diagnoses / Procedures Referred By Contac t Referred To Contact Radiology Diagnoses Malignant neoplasm of ascending colon Procedures CT Chest Abdomen Pelvis w Contrast (Generic) Derek Lindquist MD [facility] [place] [address] [facility] [place] [address] Referral ID Status Reason Start Date Expiration Date V isits Requested Visits Authorized [id number] Closed Specialty Service Requested 08/06/2023 02/03/2025 1 1 Encounter Details Date Type Department Care Team (Latest Contact Info) Description 08/11/2023 2:25 PM EST - 08/11/2023 11:59 PM EST Hospital Encounter CT Scan at [facility] [place] [address] Derek Lindquist MD [facility] [place] [address] Malignant neoplasm of ascending colon Discharge Disposition: [...] on file documented as of this encounter Medications at Time of Discharge Medication Sig Dispensed Refills Start Date End Date ondansetron (Zofran) 8 mg tablet Take 1 tablet by mouth every 8 hours as needed for Nausea (Alternate with compazine). 20 tablet 04/18/2023 prochlorperazine (Compazine) 10 mg tabletIndications:Drug- induced nausea and vomiting Take 1 tablet by [...] Take 500 mg by mouth as needed. Ca carb-Ca gluc-Mg ox-Mg gluco 500 mg calcium -250 mg Tablet Take 2 tablets by mouth daily. 03/30/2023 10/28/2023 Acetylcysteine (NAC) 600 mg capsule 600 mg. 11/07/2021 09/28/2023 documented as of this encounter Plan of Treatment Upcoming Encounters Date Type Department Care Team (Late st Contact Info) Description 01/28/2024 10:30 AM EDT Office Visit Hematology/Oncolog y at [address] [phone] Derek Lindquist MD [facility] [place] [address] Ann Tello APRN [address] [place] [address] DR HEMATOLOGY AND ONCOLOGY [place], [place] [address] 03/24/2024 1:00 PM EDT Hospital Encounter [place] [phone] Shilo Lopez MD [facility] [place] [address] 03/24/2024 1:00 PM EDT - 03/24/2024 1:45 PM EDT [place] [phone] Shilo Lopez MD [facility] [place] [address] COLONOSCOPY, DIAGNOSTIC (WRVU 3.26) Scheduled Procedures Name [...] Procedure Name Priority Date/Time Associated Diagnosis Comments CT CHEST ABDOMEN PELVIS W CONTRAST (GENERIC) Routine 08/11/2023 5:03 PM EST Malignant neoplasm of ascending colon documented in this encounter Results * CT Chest Abdomen Pelvis w Contrast (Generic) (08/11/2023 5:03 PM EST) Anatomical Region Laterality Modality Abdomen, Pelvis Computed Tomogra phy Impressions 08/12/2023 10:30 AM EST 1. ??Continued improvement in masslike thickening of the cecum and dilation of the appendix, with decreasing right iliopsoas complex collection. 2. ??Continued resolution of mesenteric lymphadenopathy. 3. ??Stable presumed focal fatty infiltration of the liver on a background of marked hepatic steatosis. 4. ??No new or progressive sites of metastatic disease are identified. Thank you for letting us participate in the care of this patient. ??If you are a health care provider and have any questions regarding this report, please contact the number below. ??For patients who have questions please contact the health housekeeper child care that requested your imaging first. ? Electronically signed by: Tanesha Lund MD, [facility] ??([phone]), at 08/12/2023 10:30 AM Narrative 08/12/2023 10:30 AM EST EXAMINATION: CT CHEST ABDOMEN PELVIS W CONTRAST (GENERIC) CLINICAL HISTORY: locally advanced colon cancer, on chemotherapy. ??Restaging locally advanced colon cancer, on chemotherapy. Restaging C18.2, Malignant neoplasm of ascending colon TECHNIQUE: Helical CT of the chest, abdomen, and pelvis following the intravenous administration of contrast. 112 mL Omnipaque 350. Oral contrast was administered. COMPARISON: CT 06/04/2023 and 04/14/2023 FINDINGS: Chest: Lungs and large airways: Tiny subpleural nodules are unchanged. No new or enlarging pulmonary nodule. Pleura: No effusion. Heart/vasculature: Heart is not enlarged. The aorta is normal. Pulmonary arteries are unremarkable. Right chest port is stable. Lymph nodes: No enlarged lymph nodes. Mediastinum and asmita: Normal. Abdomen/pelvis: Liver: Liver is significantly decreased in attenuation. Presumed additional focal fatty infiltration along of the hepatic segment 4 adjacent the gallbladder fossa is unchanged, difficult to measure, approximately 2.1 x 1.5 cm, previously measured 2.3 x 1.6 cm. No definitive new liver lesions. Bile ducts: Nondilated. Gallbladder: Gallbladder is decompressed. Pancreas: Normal attenuation without ductal dilatation. Spleen: Normal. Adrenals: Normal. Kidneys: Normal. Urinary Bladder: Normal. Vasculature: No abdominal aortic aneurysm. Portal and hepatic veins are patent. Lymph Nodes: No enlarged lymph nodes. Tiny right lower quadrant lymph nodes are present, stable. There are no enlarging lymph nodes. Bowel: Continued improvement compared to the prior CT scan with resolution of masslike thickening of the cecum, with continued mild dilation of the appendix, though improved. There is also a decrease in size of the complex collection anterior to the right iliopsoas muscle, currently 2.9 x 1.2 cm, previously 3.1 x 1.5. The appendix remains tethered to the anterior abdominal wall. No new bowel lesions are found. Peritoneum and retroperitoneum: No free fluid or loculated fluid collection. No pneumoperitoneum. No mesenteric inflammation. Abdominal wall: Normal. Reproductive organs: Multiple fibroids are present with calcification. No adnexal masses. Osseous structures: No suspicious lesions. Degenerative changes at L4-5 of the spine are present. No acute osseous abnormalities. Procedure Note Tanesha Lund MD - 08/12/2023 EXAMINATION: CT CHEST ABDOMEN PELVIS W CONTRAST (GENERIC) CLINICAL HISTORY: locally advanced colon cancer, on chemotherapy.Restaging locally advanced colon cancer, on chemotherapy. Restaging C18.2, Malignant neoplasm of ascending colon TECHNIQUE: Helical CT of the chest, abdomen, and pelvis following the intravenous administration of contrast. 112 mL Omnipaque 350. Oralcontrast was administered. COMPARISON: CT 06/04/2023 and 04/14/2023 FINDINGS: Chest: Lungs and large airways: Tiny subpleural nodules are unchanged. No newor enlarging pulmonary nodule. Pleura: No effusion. Heart/vasculature: Heart is not enlarged. The aorta is normal. Pulmonary arteries are unremarkable. Right chest port is stable. Lymph nodes: No enlarged lymph nodes. Mediastinum and asmita: Normal. Abdomen/pelvis: Liver: Liver is significantly decreased in attenuation. Presumedadditional focal fatty infiltration along of the hepatic segment 4 adjacent thegallbladder fossa is unchanged, difficult to measure, approximately 2.1 x 1.5 cm,previously measured 2.3 x 1.6 cm. No definitive new liver lesions. Bile ducts: Nondilated. Gallbladder: Gallbladder is decompressed. Pancreas: Normal attenuation without ductal dilatation. Spleen: Normal. Adrenals: Normal. Kidneys: Normal. Urinary Bladder: Normal. Vasculature: No abdominal aortic aneurysm. Portal and hepatic veins arepatent. Lymph Nodes: No enlarged lymph nodes. Tiny right lower quadrant lymphnodes are present, stable. There are no enlarging lymph nodes. Bowel: Continued improvement compared to the prior CT scan with resolutionof masslike thickening of the cecum, with continued mild dilation of theappendix, though improved. There is also a decrease in size of the complexcollection anterior to the right iliopsoas muscle, currently 2.9 x 1.2 cm, previously3.1 x 1.5. The appendix remains tethered to the anterior abdominal wall. No newbowel lesions are found. Peritoneum and retroperitoneum: No free fluid or loculated fluidcollection. No pneumoperitoneum. No mesenteric inflammation. Abdominal wall: Normal. Reproductive organs: Multiple fibroids are present with calcification.No adnexal masses. Osseous structures: No suspicious lesions. Degenerative changes at L4-5 ofthe spine are present. No acute osseous abnormalities. IMPRESSION 1. Continued improvement in masslike thickening of the cecum and dilationof the appendix, with decreasing right iliopsoas complex collection. 2. Continued resolution of mesenteric lymphadenopathy. 3. Stable presumed focal fatty infiltration of the liver on a backgroundof marked hepatic steatosis. 4. No new or progressive sites of metastatic disease are identified. Thank you for letting us participate in the care of this patient. If youare a health care provider and have any questions regarding this report,please contact the number below. For patients who have questions please contactthe health housekeeper child care that requested your imaging first. Derek Lindquist MD IM CT ORDERABLES documented in this encounter Visit Diagnoses Diagnosis Malignant neoplasm of ascending colon documented in this encounter Administered Medications Inactive Administered Medications - up to 3 most recent administrations Medication Order MAR Action Action Date Dose Rate Site iohexoL (Omnipaque) (350 mg/mL) solution 0-200 mL 0-200 mL, Intravenous, ONCE PRN, 1 dose, Starting on Wed08/11/23 at 1657, Until Wed08/11/23 at 1657, Per Protocol, Warning Vesicant/Irritant Medication , Radiology Contrast, Routine Given 08/11/2023 4:57 PM EST 112 mLs iohexoL (Omnipaque) (350 mg/mL) solution 0-50 mL 0-50 mL, Oral, ONCE PRN, 1 dose, Starting on Wed08/11/23 at 1657, Until Wed08/11/23 at 1657, Per Protocol, Warning Vesicant/Irritant Medication , Radiology Contrast, Routine Given 08/11/2023 4:57 PM EST 50 mLs documented in this encounter Care Teams Gardening Instructor Relationship Specialty Start Date End Date Hina Johnson [address] [place] [address] PCP - General Family Medicine 06/25/23 documented as of this encounter
--- OUTSIDE RECORDS SUMMARY | 2024-01-26 03:08 | XMS_ITS | Encounter Summary ---
Author Organization [facility] Address [facility] [place] [id number] Care Team Providers Care Dynamometer Tester Name Role Phone SharicathydahliaHina Kay Primary Care Provider [phone] Reason for Visit * Reason Comments Follow-up * Consultation (Routine) - Closed Specialty Diagnoses / Procedures Referred By Macy jarquin Referred To Contact General Surgery Diagnoses Malignant neoplasm of ascending colon Derek Lindquist MD [facility] [place] [address] Ema Garcia MD [facility] [place] [address] Referral ID Status Reason Start Date Expiration Date V isits Requested Visits Authorized [id number] Closed Consult, Test & Treat 08/06/2023 08/05/2024 1 1 Encounter Details Date Type Department Care Team (Latest Contact Info) Description 09/09/2023 2:30 PM EDT Office Visit General Surgery at [place] [phone] Ema Garcia MD [facility] [place] [address] Adenocarcinoma, appendix; Elevated carcinoembryonic antigen (CEA); ZARA (obstructive sleep apnea); Malignant neoplasm of overlapping sites of colon Social History Tobacco Use Types Packs/Day [...] Sign Reading Time Taken Comments Blood Pressure 155/87 09/09/2023 2:27 PM EDT Pulse 88 09/09/2023 2:20 PM EDT Temperature 36.4 ??C (97.6 ??F) 09/09/2023 2:20 PM ED T Respiratory Rate 16 09/09/2023 2:20 PM EDT Oxygen Saturation 97% 09/09/2023 2:20 PM EDT Inhaled Oxygen Concentration - - Weight 90.7 kg (199 lb 14.4 oz) 09/09/2023 2:20 PM EDT Height 158.4 cm (5' 2.36) 09/09/2023 2:20 PM ED T Body Mass Index 36.14 09/09/2023 2:20 PM EDT documented in this encounter Patient Instructions * Patient Instructions* Roro Barboza RN - 09/09/2023 2:30 PM EDT Images from the original note were not included. Pre-Operative Bowel Preparation Instructions for Colon & Rectal Surgery Purchase at your pharmacy: Cleansing agents 238 gram bottle of MiraLAX 64 oz. Gatorade 8 Dulcolax laxative pills Antibiotics: Neomycin pills (8 - 500 mg tablets) Metronidazole (Flagyl) pills (8 - 500 mg tablets) Anti-nausea pills: Zofran (ondansetron) pills (3 - 8 mg tablets) Carbohydrate loading for intestines: 3 bottles of ClearFast (will be given to you at Pre-Anesthesia Testing) *If you did not receive the Clear Fast, please substitute 3 - 12 oz servings of Gatorade Day before Surgery: No solid foods, milk, or milk products allowed. Drink only clear liquids for breakfast, lunch, and dinner. Clear liquids allowed and should be pushed: water, clear fruit juices (apple, grape, cranberry), Gatorade, bouillon broth, Jell-O (no fruit), flavored ices, tea and black coffee (okay to add sugar) If you have diabetes you may need to check your blood sugars more often and/or drink sugar free options for clear liquids This bowel prep will dehydrate you, so it is important to drink plenty of clear fluids in addition to the MiraLAX mix on the day of the prep. 12pm - drink 1 bottle of ClearFast * 1pm - take 1 Zofran pill 2pm - take 4 Dulcolax pills 4pm - mix the 238-gram bottle of MiraLAX in 64 oz. of Gatorade Shake the solution until the MiraLAX is dissolved Drink an 8 oz. glass every 10-15 minutes until the solution is gone You should complete drinking the prep within two hours (by 6pm) You will begin to have bowel movements and may have a feeling of ???fullness?? which will pass. Itis expected that you will have watery bowel movements. 7pm - take 4 Dulcolax pills, 4 Neomycin pills and 4 Metronidazole pills 9pm- take 1 Zofran pill 11pm - take 4 Neomycin pills, 4 Metronidazole pills and drink 1 bottle of ClearFast * It is important the doses of antibiotics are 4 hours apart Day of Surgery: 5:30am - Drink 1 bottle of ClearFast * Take 1 Zofran pill Do not eat or drink anything else except your medications with a sip of water Check in at Same Day Surgery (the best place to park for this is the parking garage) Medications: Medications: You may continue to take a daily aspirin unless you have been told otherwise. You may take Tylenol (acetaminophen) Continue to take any medications prescribed for high blood pressure or heart disease. IF YOU TAKE COUMADIN, ELIQUIS or PLAVIX, CALL THIS OFFICE FOR INSTRUCTIONS If you have questions about your medications or the prep, please call the General Surgery Nurses [phone] weekdays before 5:00PM. After 5:00PM or on weekends and holidays, call , and ask the centralized traffic control operator to page the General Surgery Resident stitch bonding machine tender helper. The Same Day Surgery nurses will call you between 12:00pm and 6:00pm the business day before your surgery to confirm the time of your admission and to go over any further instructions. Pre-Operative Wash- You received 2 packets of Hibiclens?? anti-bacterial soap from our clinic. Use this soap to complete the following steps to wash the night before your surgery. If you have misplaced this soap Chlorhexidine Gluconate (CHG) 4% is a special chemical found in soaps such as Hibiclensand other brands which can be purchased at a drug store. Washing Instructions: Step 1: Wet your entire body. Step 2: Use a packet of Hibiclens soap to wash your entire body from your neck to your feet, avoiding genitals. Be sure to wash for 3 minutes at your surgical area along with under finger and toe nails. Step 3: Rinse really well, get all of the soap off of your body On the morning of your surgery: Repeat steps 1-3 once more using the remaining packet of Hibiclens soap. Please note: Do not apply the soap to your head, face, eyes, inside the nose or ears or in the genital area. For external use only. Do not use on open wounds. Stop using if redness or irritation develops. Do not drink the soap. If swallowed, call Poison Control right away: [phone]. Do not shave the day before or day of your surgery. After showering, do not put lotion, cream or powder on your body. Be sure to wear clean pajamas after your shower on the evening before your surgery and sleep in clean sheets. Wear clean clothes on the morning of surgery. [facility] Colorectal Surgery Enhanced Recovery after Surgery (ERAS) Pathway Patient Instructions Your active participation in this pathway and in your own recovery is crucial to achieving an optimal, safe, rapid recovery from your surgery. Reducing stress on your body leads to rapid recovery of your bodily functions, with fewer post-operative complications. Expect to go home in 3-5 days depending on your operation, reason for surgery, and general medical condition. Stays longer than 2 week are uncommon (<5%). This program is designed to help you recover faster and get back to doing the things you like to do. Avoiding dehydration will help you feel better going into surgery. Please tape this sheet to your refrigerator door no later than 48 hours before your operation, and bring it with you to the hospital for your reference. Before Surgery Sign up fr access to [employer], our patient portal at [email or web address]. This lets you or a family member (with your permission)access information in your electronic medical record. Once you are signed up, you will get access after surgery to eSyM--a symptom tracker that keeps your surgery team informed about your recovery. Carbohydrate Loading before Surgery Research has shown that eating complex-sugars before major surgery, similar to eating a large plateof pasta before running a marathon, can protect your body from some of the stressful effects of surgery. The day before surgery: ClearFast is a maltodextrin-sugar containing energy supplement. At noon, drink 1 bottle of ClearFast (you will be provided with the ClearFast at pre-anesthesia/pre-admission testing). The night before surgery: just before bedtime, drink 1 bottle of ClearFast After that, please continue to drink plenty of Gatorade throughout the night to avoid dehydration from your bowel prep. The morning of surgery: drink last bottle of ClearFast no later than 2 hours prior to the scheduledsurgery start time (for example if you are scheduled for surgery at 7:30am; drink 1 bottle of ClearFast no later than 5:30am). Please be aware that if you drink this less than 2 hours before your surgery starts, your surgery may be delayed or canceled. Activity - Get strong for surgery At home before surgery If you presently do not exercise at least 20 minutes three times a week, we strongly encourage you to start to as soon as possible. If you have medical problems which prevent you from easily doing this, please request a pre-operative physical therapy consult from your surgery team. In the hospital after surgery After surgery, you will be instructed on breathing exercise to keep the lungs open and clear using an incentive spirometer to be done at least 10 times per hour while awake. Expect to cough. Coughing is good and helps to keep the lungs open and clear. Use a pillow to brace your abdomen when coughing to minimize discomfort. Plan on getting out of bed into the comfortable chair in your room the night of surgery for at least 2 hours. Plan on walking around the nursing unit more than once the night of surgery. Day after surgery: out of bed for at least 8 hours; if you are awake, you should be in the chair. Hospital beds are best for sleeping only; staying in bed too much results in stiffness, back-pain, and (in extreme cases) bedsores. Walk around the nursing unit at least 6 times daily. Walking encourages bowel activity and preventsblood clots (deep vein thrombosis - DVTs). If you are high- risk for DVTs, you will be sent home with preventative medication for a total of 28 days. The morning after surgery please change into your comfortable clothes that you brought with you. At home after surgery Make sure you walk outside at least 4 times per day You should be able to climb a flight of stairs before you leave the hospital No driving while in pain or taking pain medication No strenuous activity or heavy lifting for 4-6 weeks after surgery Diet, Nutrition, & Wound Healing At home before surgery Vitamins: if you are not already taking a once daily multivitamin with minerals please start today.You may find chewable or gummi vitamins easier than swallowing pills. Avoid alcohol until after you are recovered from surgery Quit smoking as soon as possible and at least 4 weeks before surgery Eat healthy: make sure to eat plenty of protein (meat, fish, eggs, cottage cheese, beans) in the weeks leading up to your surgery if you have been losing weight please take a nutritional supplement three times per day starting today examples include Ensure High Protein, Boost Plus, or [place] Instant Breakfast mixed in whole milk with or without ice-cream In the hospital after surgery Early eating after surgery has been proven to be safe and promotes bowel activity. Chewing gum has been proven to keep the bowel awake and avoid ileus (see below). We encourage you to start drinking clear liquids as soon as you're awake in the recovery room. You will receive Boost Breeze nutritional supplements twice daily starting the night of surgery. These may be changed to full strength Boost Plus or Ensure High-Protein after you have eaten. Four hours after surgery you may have 1/2 portions of a soft diet. Full portions of a regular diet (or low fiber diet if you have an ileostomy) are usually given the morning after surgery. Most patients will receive Milk of Magnesia after surgery to promote bowel activity. Listen to your body: if belching, bloated, nauseated, excessive heartburn, regurgitating/brash water, or uncomfortable, then limit oral intake of food and liquid. Roughly 20% of patients' bowels go to sleep (called an ileus and/or bowel obstruction/blockage) which may make you vomit, may require a nasogastric tube to pump the stomach and make you feel better, and may prevent you from eating and drinking for several days. The above are ways to prevent ileus. At home after surgery Make sure you are getting plenty of protein (fish, chicken, meat, soy, eggs, protein shakes) in your diet. We recommend taking a nutritional supplement (Boost, Ensure, and [place] Instant Breakfast) for several weeks after surgery to make sure you are not losing weight while your body is healing. Chew food thoroughly, eat smaller portions more often, and drink plenty of liquids. Drink more liquids than usual to avoid constipation and dehydration (goal is greater than 2 liters every day). Nausea Prevention Your bowel prep, general anesthesia, some medications, and your surgery may result in nausea. Approximately 10% of patients have post-operative nausea and/or vomiting. We will routinely prescribe pills to prevent nausea. Peppermint and spearmint is known to relax the muscles of the GI tract and can reduce nausea. Sources of peppermint you may want to purchase and bring with you to the hospital include mint gum (for chewing), mint tea (for drinking), mint essence oil (for smelling). While in the hospital, nausea treatment medications will be given to you if you need them. Pain Control Two-days before surgery (48 hours) please start taking 1000mg of Tylenol (acetaminophen) three times per day. This builds up Tylenol blood levels so that you have less discomfort after surgery (avoidif you have liver problems or regular alcohol use). After you check into same day surgery the morning of surgery, you may receive pills to prevent post-surgery discomfort (Tylenol, Celebrex, & Gabapentin). The morning of surgery you'll meet your Anesthesiology Team and discuss nerve blocks or epidural/spinal anesthesia. Depending on the size of your incision and other factors, expect a combination of an abdominal nerve block, epidural/spinal anesthesia, scheduled non-narcotic pain pills, and a mild narcotic pain pill (Tramadol). Only as needed: a narcotic pain button and/or stronger narcotic pills. You should try to avoid/limit narcotics if your pain is otherwise well- controlled because narcotics: Slow down the bowels. Are potentially addictive if taken when not having pain. Cause nausea. If your pain is not well-controlled you will receive narcotics to make you more comfortable Request anti-nausea medicine early if needed. If taking oral narcotics then you may need a stool softener or laxative. Tubes and Drains Your intravenous (IV) fluids will usually be turned off the morning after surgery. Your urinary (wells) catheter will usually be removed morning after surgery. People who may need a wells catheter longer include patients who have bladder surgery, prostate surgery or prostate problems, an epidural catheter, and others. In some rectal surgery patients, a pelvic drain is used; this is usually removed just before you leave the hospital. In some patients (such as those hernias) a subcutaneous drain(s) may be used; patients may need to go home with these, which stay in place until drain output is <30 cc/24 hours each for 3 days in a row. These must be removed in 4L clinic by the General Surgery nurses. Please call the nurses whenthe drain is ready to be removed, and they will help schedule the appointment. If luis are used, they are usually removed two weeks after surgery in 4L clinic by the General Surgery nurses When Can I go home? when you are eating and drinking when you are urinating when your bowels are working (meaning passing gas and/or stool) consistently (more than twice) when your pain is controlled with oral medication Tylenol alternating every 3 hours with ibuprofen (with food) around the clock (assuming no allergy/contraindications to either) Do not forget to keep on this regimen when you go home! Tramadol or other pain medication for breakthrough pain when there is no evidence of complications when you have been educated about signs and symptoms of complications if applicable: independent in stoma self-care and with visiting nurse arrangements in place A Discharge Fastener Technologist will arrange visiting nurses and other special needs. follow-up appointment with Dr. Christie in 4-5 weeks Strategies for recovery. Please Help Us Help You Recover! Sign up for [facility]: Please sign up for [facility], our patient portal, by going to [email or web address]. Your [facility] access number is . Technical assistance is available at [phone] or [phone]. If a aircraft avionics technician does not answer when you call, you will first be directed back to the web site to submit an inquiry electronically. However, you can also leave a voicemail after the beep at the end of the prerecorded message. A aircraft avionics technician then will call yo back as soon as possible. MyD lets you or a chosen family member check your labs, appointments, prescriptions, and correspond with your care team. You can access [facility] from any web-enabled desktop/laptop/tablet or smart phone. 2. Report your symptoms to us using eSyM: Once you are signed up for MyD, you will have access to eSyM through [employer] after your surgery eSyM asks you to report your symptoms and helps us track your recovery. The information you report helps us monitor your progress and reach out to you if necessary. ESyM also gives you access to tip sheets that provide guidance for coping with specific post-op s ymptoms. QUESTIONS about accessing eSyM after your surgery? Please contact: SUSY RODRIGES [phone] Your ERAS Surgery Team Before and after your hospital stay (4L team) Simone Christie MD, Attending Colorectal Surgeon JANELLE Noyola 4L General Surgery Nurses (Danielle Henderson Alyssa, Jennifer, Kathryn, Ingrid): [phone] Surgery schedulers: Domenic : [phone] - [phone] Armida Reid, Painter Helper Spray to Dr. Simone Christie: [phone] During your hospital stay (Rounding team) General Surgery Chief Resident (rotates) General Surgery Site Specialist (rotates) [employer] 3rd year Medical Student (rotates) Estella LUIS 6. Dr. Ema Garcia, Dr. Lina Christie or Dr. Simone Christie Ostomy Nurses: Ann Cintron RN, Juana Haji RN, Monique Hurtado RN, Shanta Shea, and Lucero Bowen RN Resources for questions: For medical question call the General Surgery Nurses: [phone] We strongly encourage emailing questions or concerns online via meets (please do not use regular e-mail) and a nurse or Dr. Christie will get back to you usually within 1 or 2 business days. For scheduling questions call Armida Reid: [phone] If you are interested in learning more about ERAS we recommend Google searching for ERAS YouTube ERAS Colorectal Surgery as well as [email or web address] Checklist: [ ] Vitamins every day [ ] Eat lots of protein [ ] Exercise - start TODAY [ ] ClearFast, 3 bottles (will be given to you) [ ] mint gum and/or mint tea (can help relax the bowels and prevent nausea after surgery) [ ] small pillow for coughing [ ] comfortably clothes and slippers to wear while in the hospital [ ] Start Tylenol 2 days before surgery documented in this encounter Progress Notes * Ema Garcia MD - 09/09/2023 2:30 PM EDT Colorectal Surgery Follow-Up Visit ~ Division of Colon and Rectal Surgery ~ [facility] PCP:Hina Johnson Colorectal surgery Garcia Medical oncology Dr. Lindquist HPI: Blanca Lujan 67 y.o. seen in colorectal surgical follow-up for T4 N0 M1 colon cancer (associated with either the cecum, appendix versus ileum as primary origin) patient is now status post neoadjuvant treatment for locally advanced colon cancer with evidence of probable peritoneal metastasis. Case was discussed with ass and recommended for neoadjuvant treatment and resection prior to ref erral. 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 Past Surgical History: Procedure Laterality Date IR MEDIPORT PLACEMENT 04/14/2023 IR Mediport Placement 04/14/2023 David Bower, DO [facility] INTERVENTIONL RAD PRO COLONOSCOPY, BIOPSY N/A 03/16/2023 COLONOSCOPY FLEXIBLE, WITH BX (WRVU 3.56) performed by Shilo Lopez MD at [facility] ENDOSCOPY PRO UNLISTED PX RECTUM N/A 03/16/2023 LOWER EUS- ENDOSCOPIC ULTRASOUND (WRVU 7.56) performed by Shilo Lopez MD at [facility] ENDOSCOPY PRO UPGI ENDOSCOPY W/US FN BX 03/16/2023 EGD, W US GUIDED FINE NEEDLE ASPIRATION/BIOPSY (WRVU 4.16) performed by Shilo Lopez MD at [facility] ENDOSCOPY BP 155/87 Pulse 88 Temp 36.4 ??C (97.6 ??F) Resp 16 Ht 158.4 cm (5' 2.36) Wt 90.7 kg (199 lb 14.4 oz) SpO2 97% BMI 36.14 kg/m?? Body mass index is 36.14 kg/m??. General Appearance: well developed and well [...] and not distended, no masses or organomegaly Ext: no cyanosis Anorectal Exam :deferred Imagin08/11/2023 IMPRESSION 1. Continued improvement in masslike thickening [...] who have questions please contact the health hospice care transitions coordinator that requested your imaging first. Electronically signed by: Tanesha Lund MD, [facility] ([phone]), at 08/12/2023 10:30 AM Presented in 02/2023 with RLQ abdominal pain [...] evidence of acute diverticulitis 5. Fibroid uterus ([facility] [place] read) - IMPRESSION 1. Unexpected findings [...] uterine leiomyomatosis. Sonographic correlation suggested. 5. Diverticulosis. Endoscopy B. Colonoscopy 11/07/21 - 12 polyps removed, [...] BIOPSY: - Tubular adenoma. - Hyperplastic polyp. Assessment:Blanca Lujan 67 y.o. seen in colorectal surgical follow-up for T4 N0 M1 colon cancer(associated with either the cecum, appendix versus ileum as primary origin) patient is now status post neoadjuvant treatment for locally advanced colon cancer with evidence of probable peritoneal metastasis. Case was discussed with [facility] and recommended for neoadjuvant treatment and resection priorto referral. Patient is seen today with her daughter I have reviewed the patient's medical record in total and reviewed all the films both the dictationof the film and the actual CT scans themselves. I have reviewed the medical record including colonoscopy. I have examined the patient and spoken with the patient. Based on the clinical findings the patient's quality of life we discussed the [place] [employer] of colorectal surgery guidelines and NCCNguidelines for treatment of locally advanced colon cancer. We discussed the etiology and pathogenesis of colon cancer at length today, specifically discussing polyp formation and transformation into malignancy. We reviewed his CT scan in detail, including the CT report and the images of the CT themselves. We reviewed his pathology in length. In general T4 be with evidence of metastatic disease tothe peritoneum carries a higher risk of toxicity as a locally advanced stage IV to cancer. We discussed that treatment of locally advanced colon cancer is typically initially surgical however occasionally bulky tumors or locally very advanced tumors with evidence of peritoneal disease are individualized. This case was discussed with [facility] and recommended for medical oncology treatment and utilize neoadjuvant medications in particular cases. In the majority of cases, as in this case, werecommended neoadjuvant treatment followed by surgery. Surgery for the management of colon cancer involves removing the portion of the colon containing the cancer as well as the blood vessels associated with that segment of colon to remove the lymph nodes that drain that area. If the final pathology shows that there is cancer in the lymph nodes, we discussed a referral to medical oncology to discuss chemotherapy. In select cases even node-negative patients do return to receive additional treatment. There are also some clinical trials going on specific in this area. If the lymph nodes have no cancer in them, surveillance will be with a colonoscopy in one year, a CT chest, abdomen and pelvis yearly for 5 years, and blood work with a CEA every 3-6 months. In this situation surgical resectionwill also identify the site of origin, ileum versus cecum versus appendix. In this particular situation, a laparoscopic ileal colonic colectomy/with en bloc resection of surrounding tissues with primary anastomosis. This will be performed with a primary anastomosis low likelihood for temporary diversion with a loop ileostomy. In addition we recommend cystoscopy and right ureteral stent placement at the time of surgery which would be accomplished intraoperatively and would be removed at the time of surgery. Informed consent was reviewed with the patient. We discussed the risks and benefits of surgery including risks of pain, bleeding, infection, leak from the anastomosis, injury to surrounding structures, need for further procedures or operations, changes to bowel f unction, scars, hernias, problems with other organ systems including the heart, lungs, liver, kidneys, blood clots, and . Patient will speak with our nurses today to discuss bowel prep and ERAS discussion in the event we do proceed with initial surgical intervention. He will also speak with our OR schedulers to discuss timing for surgery should that be the next step. Hospital stay is typically 2-5 days depending on surgical recovery. Patient and daughter do understand that further treatment may be recommended postsurgery. Plan: Proceed with surgical intervention Ema Garcia MD, MS, FACS, FASCRS Chief, Division of Colon and Rectal Surgery [facility] Pager [phone] 09/09/2023 2:31 PM * Roro Barboza RN - 09/09/2023 2:30 PM EDT The patients pharmacy was confirmed. The patient received instructions on cleansing bowel prep, DVTprevention, Hibiclens wash, and what to expect after surgery. The patient had no additional questions at this time and was provided with the telephone number to call with any questions regarding the information that we went over today. documented in this encounter Plan of Treatment Upcoming Encounters Date Type Department Care Team (Late st Contact Info) Description 01/28/2024 10:30 AM EDT Office Visit Hematology/Oncolog y at [address] [phone] Derek Lindquist MD [facility] [place] [address] Ann Tello APRN [address] [place] [address] DR HEMATOLOGY AND ONCOLOGY [place], [place] [id number] 03/24/2024 1:00 PM EDT Hospital Encounter [place] [phone] Shilo Lopez MD [facility] [place] [address] 03/24/2024 1:00 PM EDT - 03/24/2024 1:45 PM EDT Surgery [place] [phone] Shilo Lopez MD [facility] [place] [address] COLONOSCOPY, DIAGNOSTIC (WRVU 3.26) Scheduled Procedures Name Priority Associated Diagnoses Date/Ti me COLONOSCOPY, DIAGNOSTIC (WRVU 3.26) Procedure: Colonoscopy Indication: Malignant neoplasm of colon, unspecified part of colon and History of partial colectomy Sedation: IVCS Timeframe: within 2 weeks Specific provider: first available OV needed: No Anticoagulation status: no documented anticoagulation use 03/24/2024 1:00 PM EDT documented as of this encounter Results * EKG 12 Lead (09/09/2023 3:44 PM EDT) Ventricular rate 80 BPM MUSE SYSTEM Atrial Rate 80 BPM MUSE SYSTEM P-R Interval 154 ms MUSE SYSTEM QRS Duration 80 ms MUSE SYSTEM Q-T Interval 368 ms MUSE SYSTEM QTC Calculated (Bezet) 424 ms MUSE SYSTEM Calculated P [place] 62 degrees MUSE SYSTEM Calculated R [place] 48 degrees MUSE SYSTEM Calculated T [place] 64 degrees MUSE SYSTEM INTERPRETATION Normal sinus rhythm Normal ECG No previous ECGs available Confirmed by MD TOI, JON ([id number]) on 09/10/2023 7:29:16 AM MUSE SYSTEM 09/09/2023 3:44 PM EDT 09/10/2023 7:29 AM EDT Ema Garcia MD ECG ORDERABLES MUSE SYSTEM documented in this encounter Visit Diagnoses Diagnosis Adenocarcinoma, appendix Malignant neoplasm of appendix vermiformis Elevated carcinoembryonic antigen (CEA) Elevated carcinoembryonic antigen [CEA] ZARA (obstructive sleep apnea) Obstructive sleep apnea (adult) (pediatric) Malignant neoplasm of overlapping sites of colon Malignant neoplasm of other specified sites of large intestine documented in this encounter Care Teams Dynamometer Tester Relationship Specialty Start Date End Date Hina Johnson [address] [place] [address] PCP - General Family Medicine 06/25/23 documented as of this encounter
--- OUTSIDE RECORDS SUMMARY | 2024-01-26 03:08 | XMS_ITS | Encounter Summary ---
[place] [address] Care Team Providers Care Senior Tax Accountant Name Role Phone CristobalEliza Hina Primary Care Provider [phone] Reason for Visit * Auth/Cert (Routine) Specialty Diagnoses / Procedures Referred By Macy t Referred To Contact Diagnoses appendicitis Procedures PRO LAP, SURG, COLECTOMY, W/REMVL TERM ILEUM PRO LAP, APPENDECTOMY PRO CYSTOSCOPY, INSERT URETERAL STENT @LAPAROSCOPIC ASSISTED COLECTOMY, PARTIAL, REM.TERMINAL ILEUM (WRVU 22.95) LAPAROSCOPIC APPENDECTOMY (WRVU 9.45) CYSTO, STENT PLACEMENT INTRAOP, TEMPORARY (WRVU 2.82) Ariana Garcia MD [facility] [address] [place] [address] [facility] Referral ID Status Reason Start Date Expiration Date Visits Re quested Visits Authorized [id number] 1 1 Encounter Details Date Type Department Care Team (Late st Contact Info) Description 09/28/2023 1:36 PM EDT - 09/28/2023 6:21 PM EDT [place] [address] Ariana Garcia MD [facility] DR [facility] [place], [place] [id number] @LAPAROSCOPIC ASSISTED COLECTOMY, PARTIAL, REM.TERMINAL ILEUM (WRVU 22.95) Social History Tobacco Use Types Packs/Day Years Used Date Smoking Tobacco: Former Cigarettes Smokeless Tobacco: Never Alcohol Use Standard Drinks/Week Comments Yes 0 (1 standard drink = 0.6 oz pur e alcohol) few times yearly [facility] Utilities Answer Date Recorded In the [...] Sign Reading Time Taken Comments Blood Pressure 147/86 09/28/2023 6:15 PM EDT Pulse 77 09/28/2023 6:15 PM EDT Temperature 36.1 ??C (97 ??F) 09/28/2023 5:24 PM EDT Respiratory Rate 13 09/28/2023 6:15 PM EDT Oxygen Saturation 94% 09/28/2023 6:15 PM EDT Inhaled Oxygen Concentration - - Weight 86.5 kg (190 lb 9.6 oz) 09/28/2023 1:34 P M EDT Height 154.9 cm (5' 1) 09/28/2023 [...] ASSISTED COLECTOMY, PARTIAL, REM.TERMINAL ILEUM (WRVU 22.95): 82103 (CPT??) LAPAROSCOPIC PARTIAL OMENTECTOMY (WRVU 15.67): 21548 (CPT??) Panel 2 CYSTO, STENT PLACEMENT INTRAOP, TEMPORARY (WRVU 2.82): 35011 (CPT??) HPI: Blanca Lujan 67 y.o. seen in colorectal surgical follow-up for T4 N0 M1 colon cancer (associated with either the cecum, appendix versus ileum as primary origin) patient is now status post neoadjuvant treatment for locally advanced colon cancer with evidence of probable peritoneal metastasis. Case was discussed with [facility] and recommended for neoadjuvant treatment and resection [...] follow-up appointment already scheduled -call Armida Reid [phone] for scheduling assistance -call the General Surgery Clinic nurses [phone] for prior authorizations assistance Only if applicable [...] colorectal surgery: an international consensus using the Mcpherson technique. Dis Colon Rectum. 2012 Apr;55(4):416-23. Vital [...] 09/30/2023 6:14 PM) Result Value WORKSTATION ID [id number] Impression 1. No pneumoperitoneum. 2. Mild small bowel dilatation suggestive of postoperative ileus. Thank you for letting us participate in the care of this patient. If you are a health care provider and have any questions regarding this report, please contact the number below. For patients who have questions please contact the health intensive care unit nurse that requested your imaging first. Electronically signed by: Simone Hines MD, [facility] ([phone]), at 09/30/2023 7:26 PM XR Abdomen 1 view (Generic) (Exam End: 09/30/2023 8:42 PM) Result Value WORKSTATION ID [id number] Impression FINDINGS/IMPRESSION: The distal portion of a [...] who have questions please contact the health intensive care unit nurse that requested your imaging first. Electronically signed by: Simone Hines MD, [facility] ([phone]), at 09/30/2023 8:53 PM Condition at discharge: Stable Mental Status: awake [...] Tello APRN; Derek Lindquist MD Hematology/Oncology at [facility] Arrive at: [facility] door at end of hallway [phone] 11/01/2023 1:00 PM Ariana Garcia MD General Surgery at [facility] Arrive at: [facility] [phone] Please dispose of unused excess opioids before your appointment or bring them with you to the appointment and we will help you dispose of them correctly. Future Orders Complete By Expires Basic Metabolic Panel (non-fasting) [LAB15 Custom] 10/11/2023 12/04/2023 Process Instructions: INCLUDES: Calcium, BUN, Creat, GFR, Glucose, Lytes Scheduling Instructions: Comments: Questions: Magnesium [SHI852 Custom] 10/11/2023 12/04/2023 Process Instructions: Scheduling Instructions: [...] Medication: Tylenol should be used as primary ydpq-uza-adjvtaq pain reliever; 1000mg every 6 hours as [...] with information about your appointments. Please call [phone] (clinic number for appointments only) to confirm date and time of your appointments or if you do not receive information about your appointment in a timely manner. For nursing questions, please call . Future Appointments Date Time Provider Department Center 10/29/2023 11:00 AM Derek Lindquist MD [facility] [place] [facility] 11/01/2023 1:00 PM Ariana Garcia MD [facility] SURG [facility] Call your doctor if: You develop any [...] AND HOLIDAYS: ASK FOR THE SURGERY RESIDENT FINANCIAL ASSISTANCE SPECIALIST IF ANY OF THE ABOVE OCCUR. Divison of [place] [address] ~~~~~~~~~~~~~~~~~~~~~~~~~~~~~~~~~~~~~~~~~~~~~~~~~~~~~~~~~~~~~~~~~~~ General Instructions None [facility] Surgery - Provider Contact Information: [phone] Primary Avril Physician: Hina MADRID [address] [place] [address] Signed: JANELLE Wheatley 10/04/23 9:32 AM documented [...] Medication: Tylenol should be used as primary runz-ijk-qwhlbdd pain reliever; 1000mg every 6 hours as [...] with information about your appointments. Please call [phone] (clinic number for appointments only) to confirm date and time of your appointments or if you do not receive information about your appointment in a timely manner. For nursing questions, please call . Future Appointments Date Time Provider Department Center 10/29/2023 11:00 AM Derek Lindquist MD [facility] [place] [facility] 11/01/2023 1:00 PM Ariana Garcia MD [facility] SURG [facility] Call your doctor if: You develop any [...] AND HOLIDAYS: ASK FOR THE SURGERY RESIDENT FINANCIAL ASSISTANCE SPECIALIST IF ANY OF THE ABOVE OCCUR. Divison of Colon and Rectal Surgery [place] [phone] ~~~~~~~~~~~~~~~~~~~~~~~~~~~~~~~~~~~~~~~~~~~~~~~~~~~~~~~~~~~~~~~~~~~ documented in this encounter Medications at [...] HAMMER; Age: 5 1955; 67 y.o. Room/Bed: [address] [place], [place] [address]A Today's Date: 10/04/23 ID: Blanca Lujan is [...] Note Patient: Blanca Lujan : 1955 Room: [address] [place] [address]A Admit date: 09/28/2023 Attending: Ariana Garcia MD [...] 09/30/2023 6:14 PM) Result Value WORKSTATION ID [id number] Impression 1. No pneumoperitoneum. 2. Mild small bowel dilatation suggestive of postoperative ileus. Thank you for letting us participate in the care of this patient. If you are a health care provider and have any questions regarding this report, please contact the number below. For patients who have questions please contact the health intensive care unit nurse that requested your imaging first. Electronically signed by: Simone Hines MD, [facility] ([phone]), at 09/30/2023 7:26 PM XR Abdomen 1 view (Generic) (Exam End: 09/30/2023 8:42 PM) Result Value WORKSTATION ID [id number] Impression FINDINGS/IMPRESSION: The distal portion of a [...] who have questions please contact the health intensive care unit nurse that requested your imaging first. Micro: Microbiology [...] vs Wednesday Lina Christie MD FACS FASCRS budget controller Division of Colon and Rectal Surgery [facility] Pager [phone] * Lary Chamberlain PT - 10/02/2023 5:01 [...] 04/14/2023 IR Mediport Placement 04/14/2023 David Bower, [facility] INTERVENTIONL RAD PRO COLONOSCOPY, BIOPSY N/A 03/16/2023 COLONOSCOPY FLEXIBLE, WITH BX (WRVU 3.56) performed by Shilo Lopez MD at [facility] ENDOSCOPY PRO CYSTOSCOPY, INSERT URETERAL STENT Right 09/28/2023 CYSTO, STENT PLACEMENT INTRAOP, TEMPORARY (WRVU 2.82) performed by Shon Lewis MD at [facility] MAIN OR PRO LAP, SURG, COLECTOMY, W/REMVL TERM ILEUM N/A 09/28/2023 @LAPAROSCOPIC ASSISTED COLECTOMY, PARTIAL, REM.TERMINAL ILEUM (WRVU 22.95) performed by Ariana Garcia MD at [facility] MAIN OR PRO UNLISTED LAPAROSCOPIC PROC ABD PERITONEUM & OMENTUM N/A 09/28/2023 LAPAROSCOPIC PARTIAL OMENTECTOMY (WRVU 15.67) performed by Ariana Garcia MD at [facility] MAIN OR PRO UNLISTED PX RECTUM N/A 03/16/2023 LOWER EUS- ENDOSCOPIC ULTRASOUND (WRVU 7.56) performed by Shilo Lopez MD at [facility] ENDOSCOPY PRO UPGI ENDOSCOPY W/US FN BX 03/16/2023 EGD, W US GUIDED FINE NEEDLE ASPIRATION/BIOPSY (WRVU 4.16) performed by Shilo Lopez MD at [facility] ENDOSCOPY Social History: Lives in [place], [place] with daughter Home set-up: 1 level [...] for this consult. LARY CHAMBERLAIN, PT Pager: [phone] Physical Therapy Inpatient Rehabilitation Department Time IN [...] Patient: Blanca Lujan : 1955 Room: [address] [place] [address] Admit date: 09/28/2023 Attending: Ariana Garcia MD [...] 09/30/2023 6:14 PM) Result Value WORKSTATION ID [id number] Impression 1. No pneumoperitoneum. 2. Mild small bowel dilatation suggestive of postoperative ileus. Thank you for letting us participate in the care of this patient. If you are a health care provider and have any questions regarding this report, please contact the number below. For patients who have questions please contact the health intensive care unit nurse that requested your imaging first. Electronically signed by: Simone Hines MD, [facility] ([phone]), at 09/30/2023 7:26 PM XR Abdomen 1 view (Generic) (Exam End: 09/30/2023 8:42 PM) Result Value WORKSTATION ID [id number] Impression FINDINGS/IMPRESSION: The distal portion of a [...] who have questions please contact the health intensive care unit nurse that requested your imaging first. Electronically signed by: Simone Hines MD, [facility] ([phone]), at 09/30/2023 8:53 PM Micro: Microbiology Results (last 7 days) No [...] able. Thank you Adi Lazo PT Pager [phone] Inpatient Rehabilitation * Serjio Soriano MD - 10/01/2023 1:42 PM EDT Colorectal Surgery Progress Note Patient: Blanca Lujan : 1955 Room: [address] [place] [address] Admit date: 09/28/2023 Attending: Ariana Garcia MD [...] 09/30/2023 6:14 PM) Result Value WORKSTATION ID [id number] Impression 1. No pneumoperitoneum. 2. Mild small bowel dilatation suggestive of postoperative ileus. Thank you for letting us participate in the care of this patient. If you are a health care provider and have any questions regarding this report, please contact the number below. For patients who have questions please contact the health intensive care unit nurse that requested your imaging first. Electronically signed by: Simone Hines MD, [facility] ([phone]), at 09/30/2023 7:26 PM XR Abdomen 1 view (Generic) (Exam End: 09/30/2023 8:42 PM) Result Value WORKSTATION ID [id number] Impression FINDINGS/IMPRESSION: The distal portion of a [...] who have questions please contact the health intensive care unit nurse that requested your imaging first. Electronically signed by: Simone Hines MD, [facility] ([phone]), at 09/30/2023 8:53 PM Micro: Microbiology Results (last 7 days) No [...] ; Age: 5 1955; 67 y.o. [facility] Date: 10/01/23 ID: Blanca Lujan [...] Patient: Blanca Lujan : 1955 Room: [address] [place] [address] Admit date: 09/28/2023 Attending: Ariana Garcia MD [...] appropriate. Thank you Adi Lazo PT Pager [phone] Inpatient Rehabilitation * Serjio Soriano MD - 09/29/2023 8:50 AM EDT Colorectal Surgery Progress Note Patient: Blanca Lujan : 1955 Room: [address] Admit date: 09/28/2023 Attending: Ariana Garcia [...] ; Age: 5 1955; 67 y.o. [facility] Today's Date: 09/29/23 ID: Blanca [...] Chief, Division of Colon and Rectal Surgery [facility] Pager [phone] * Vicki Galan MD - 09/28/2023 8:02 [...] Galan MD 09/28/2023 Colorectal Surgery, Team Pager [phone] * Kiki Kirby RN - 09/28/2023 6:20 PM EDT [...] IR Mediport Placement 04/14/2023 David Bower, DO [facility] INTERVENTIONL RAD PRO COLONOSCOPY, BIOPSY N/A 03/16/2023 COLONOSCOPY FLEXIBLE, WITH BX (WRVU 3.56) performed by Shilo Lopez MD at [facility] ENDOSCOPY PRO UNLISTED PX RECTUM N/A 03/16/2023 LOWER EUS- ENDOSCOPIC ULTRASOUND (WRVU 7.56) performed by Shilo Lopez MD at [facility] ENDOSCOPY PRO UPGI ENDOSCOPY W/US FN BX 03/16/2023 EGD, W US GUIDED FINE NEEDLE ASPIRATION/BIOPSY (WRVU 4.16) performed by Shilo Lopez MD at [facility] ENDOSCOPY No data found. NAD, A&O Regular [...] with plan. Maria Victoria Mckeon RN-BSN-CM Pager: [phone] * Plan of Care - Diogenes Soni [...] (Interventions Implemented as Appropriate) Flowsheets (Taken 10/02/2023 1387) Plan of Care Reviewed With: patient Progress: [...] DME used at home: oxygen (CPAP via [employer]) DME Needed at Discharge: No Patient [...] Discharge: 10/04/2023 Maria Victoria Mckeon RN-BSN-CM Pager: [phone] * Plan of Care - Pattie Cyr [...] 04/14/2023 IR Mediport Placement 04/14/2023 David Bower, [facility] INTERVENTIONL RAD PRO COLONOSCOPY, BIOPSY N/A 03/16/2023 COLONOSCOPY FLEXIBLE, WITH BX (WRVU 3.56) performed by Shilo Lopez MD at [facility] ENDOSCOPY PRO CYSTOSCOPY, INSERT URETERAL STENT Right 09/28/2023 CYSTO, STENT PLACEMENT INTRAOP, TEMPORARY (WRVU 2.82) performed by Shon Lewis MD at [facility] MAIN OR PRO LAP, SURG, COLECTOMY, W/REMVL TERM ILEUM N/A 09/28/2023 @LAPAROSCOPIC ASSISTED COLECTOMY, PARTIAL, REM.TERMINAL ILEUM (WRVU 22.95) performed by Ariana Garcia MD at [facility] MAIN OR PRO UNLISTED LAPAROSCOPIC PROC ABD PERITONEUM & OMENTUM N/A 09/28/2023 LAPAROSCOPIC PARTIAL OMENTECTOMY (WRVU 15.67) performed by Ariana Garcia MD at [facility] MAIN OR PRO UNLISTED PX RECTUM N/A 03/16/2023 LOWER EUS- ENDOSCOPIC ULTRASOUND (WRVU 7.56) performed by Shilo Lopez MD at [facility] ENDOSCOPY PRO UPGI ENDOSCOPY W/US FN BX 03/16/2023 EGD, W US GUIDED FINE NEEDLE ASPIRATION/BIOPSY (WRVU 4.16) performed by Shilo Lopez MD at [facility] ENDOSCOPY Social History: Patient lives with daughter [...] requires assist for LB cares. OT provided sales mgr and sock aide with good carryover within [...] Discharge planning. Total Minutes, Occupational Therapy: 38 ([id number]) 2017 OT Evaluation Code Rationale: Diagnosis & [...] and measurable assessment of functional outcome. Pager: [phone] Roberto Goode OT 09/30/2023 Occupational Therapy Rehabilitation [...] surrogate would be surrogate decision maker per [place] surrogate decision making law. (Only good for 180 days) Any patient receiving care in [place] must abide by [place] law. The hierarchy for surrogate decision making [...] (i) The agent with financial power of criminal defense attorney or a conservator appointed in accordance [...] living?: No Current DME: oxygen (CPAP via [employer]) Home Address confirmed as: Physical: [address] [address] Mailing: Otoniel [address] [address] Social & Family Supports: All names listed [...] ; Prescription Coverage: Yes Preferred Pharmacy: [facility] [place], [place] - [address] [place] [id number] Annabella Status: Patient is a : No Primary Care Provider confirmed: Hina Johnson [phone] Patient/Caregiver Goals of Treatment: discharge to daughter's [...] care planning. Maria Victoria Mckeon RN-BSN-CM Pager: [phone] * Plan of Care - Rosenad Dowd RN - 09/29/2023 11:29 AM EDT [...] Smith MD - 09/28/2023 2:14 PM EDT [facility] Operative Note Patient Name: Blanca Lujan : [id number] MR#: [id number] Case Date: 09/28/2023 Surgeon: Surgeon(s) and Role: [...] was emptied. The cystoscope was removed. A Monroe catheter was secured to a 16Fr Eliseo's [...] Garcia MD - 09/28/2023 2:14 PM EDT [facility] Operative Note Patient Name: Blanca Lujan : [id number] MR#: [id number] Case Date: 09/28/2023 Surgeon: Surgeon(s) and Role: [...] changes: Ileocolic anastomosis eD-H Order Id number [id number] Drains: * No LDAs found * Surgical [...] known history of stage IV T4 NX Y4nuolt cancer with evidence of peritoneal disease who [...] Sterile technique was used to create a zntp-gn-pjqs, functional end-to-end anastomosis. An enterotomy was made [...] EDT Office Visit Hematology/Oncolog y at [address] [address] Derek Lindquist MD [facility] [place] [address] Ann Tello APRN [address] [place] [address] DR HEMATOLOGY [place] [address] 03/24/2024 1:00 PM EDT Hospital Encounter [place] [id number] Shilo Lopez MD [facility] DR [place] [address] 03/24/2024 1:00 PM EDT - 03/24/2024 1:45 PM EDT Surgery [place] [address] Shilo Lopez MD [facility] [place] [address] COLONOSCOPY, DIAGNOSTIC (WRVU 3.26) Scheduled Orders Name [...] Unlisted Laparoscopic Proc Abd Peritoneum & Omentum (45485) Yes 09/28/2023 1:42 PM EDT appendicitis Colon cancer Cystoscopy, Insert Ureteral Stent ([id number]) Yes 09/28/2023 1:42 PM EDT appendicitis Colon cancer Lap, Surg, Colectomy, W/Remvl Term Ileum ([id number]) Yes 09/28/2023 1:42 PM EDT appendicitis Colon cancer POCT GLUCOSE Routine 09/28/2023 1:35 PM EDT documented in this encounter Results * (ABNORMAL) CRP, acute inflammation (10/04/2023 4:57 AM EDT) C-Reactive Protein 81.3(H) <=4.9 mg/L [facility] Blood 10/04/2023 4:57 AM EDT 10/04/2023 5:13 AM EDT Narrative Resulting Agency Comment Spec In Lab Ariana Garcia MD CHEMISTRY ORDERABLES [facility] [place] [address] * Magnesium (10/04/2023 4:57 AM EDT) Pathologist [facility] Magnesium 0.78 0.69 - 1.07 mmol/L [facility] Blood 10/04/2023 4:57 AM EDT 10/04/2023 5:13 AM EDT Narrative Resulting Agency Comment Spec In Lab Ariana Garcia MD CHEMISTRY ORDERABLES [facility] [place] [address] * (ABNORMAL) Basic Metabolic Panel (non-fasting) (10/04/2023 4:57 AM EDT) Glucose 129 65 - 199 mg/dL [facility] Comment:Diabetes: >=200 mg/d L plus symptoms Blood Urea Nitrogen 11 8 - 18 mg/dL [facility] Creatinine 0.60(L) 0.70 - 1.20 mg/dL [facility] Sodium 140 135 - 145 mmol/L [facility] Potassium 3.4(L) 3.5 - 5.0 mmol/L [facility] Comment: Please note: ??Patients with WBC >100,000 may have falsely elevated Potassium levels. ??For accurate Potassium quantification in these patients send serum separator tube (gold top) for subsequent determinations. ??Contact the Clinical Chemistry Laboratory if there are any questions. Chloride 103 98 - 107 mmol/L [facility] Carbon Dioxide 28 22 - 31 mmol/L [facility] Anion Gap 9 5 - 15 mmol/L [facility] Calcium 8.6 8.5 - 10.5 mg/dL [facility] Est Glomerular Filtration Rate 100 >=60 mL/min/1. 73 m?? [facility] Comment: This patient's estimated GFR [...] In Lab Ariana Garcia MD CHEMISTRY ORDERABLES [facility] [place] [address] * (ABNORMAL) CRP, acute inflammation (10/03/2023 1:54 AM EDT) C-Reactive Protein 59.3(H) <=4.9 mg/L [facility] Blood 10/03/2023 1:54 AM EDT 10/03/2023 2:16 AM EDT Narrative Resulting Agency Comment Spec In Lab Ariana Garcia MD CHEMISTRY ORDERABLES Performing Organization Address City/[facility]/ZIP Co de Phone Number [facility] [place] [address] * Magnesium (10/03/2023 1:54 AM EDT) Magnesium 0.87 0.69 - 1.07 mmol/L [facility] Blood 10/03/2023 1:54 AM EDT 10/03/2023 2:16 AM EDT Narrative Resulting Agency Comment Spec In Lab Ariana Garcia MD CHEMISTRY ORDERABLES Performing Organization Address City/[facility] Co de Phone Number [facility] [place] [address] * (ABNORMAL) Basic Metabolic Panel (non-fasting) (10/03/2023 1:54 AM EDT) Glucose 99 65 - 199 mg/dL [facility] Comment:Diabetes: >=200 mg/d L plus symptoms Blood Urea Nitrogen 11 8 - 18 mg/dL [facility] Creatinine 0.59(L) 0.70 - 1.20 mg/dL [facility] Sodium 137 135 - 145 mmol/L [facility] Potassium 3.2(L) 3.5 - 5.0 mmol/L [facility] Comment: Please note: ??Patients with WBC >100,000 may have falsely elevated Potassium levels. ??For accurate Potassium quantification in these patients send serum separator tube (gold top) for subsequent determinations. ??Contact the Clinical Chemistry Laboratory if there are any questions. Chloride 100 98 - 107 mmol/L [facility] Carbon Dioxide 26 22 - 31 mmol/L [facility] Anion Gap 11 5 - 15 mmol/L [facility] Calcium 8.4(L) 8.5 - 10.5 mg/dL [facility] Est Glomerular Filtration Rate 100 >=60 mL/min/1. 73 m?? [facility] Comment: This patient's estimated GFR [...] Garcia MD CHEMISTRY ORDERABLES Performing Organization Address City/[facility]/ZIP Co de Phone Number [facility] [place] [address] * Lavender Tube HOLD (10/02/2023 5:21 AM EDT) Lavender Hold Sample in lab. [facility] Blood Venous Draw / Unknown 10/02/2023 5:21 AM EDT 10/02/2023 5:34 AM EDT Serjio Soriano MD HEMATOLOGY ORDERABLE S Performing Organization Address City/[facility]/ZIP Co de Phone Number [facility] [place] [address] * (ABNORMAL) CRP, acute inflammation (10/02/2023 5:21 AM EDT) C-Reactive Protein 79.7(H) <=4.9 mg/L [facility] Blood 10/02/2023 5:21 AM EDT 10/02/2023 5:34 AM EDT Narrative Resulting Agency Comment Spec In Lab Ariana Garcia MD CHEMISTRY ORDERABLES [facility] [place] [address] * Magnesium (10/02/2023 5:21 AM EDT) Pathologist [facility] Magnesium 0.86 0.69 - 1.07 mmol/L [facility] Blood 10/02/2023 5:21 AM EDT 10/02/2023 5:34 AM EDT Narrative Resulting Agency Comment Spec In Lab Ariana Garcia MD CHEMISTRY ORDERABLES Performing Organization Address City/[facility]/ZIP Co de Phone Number [facility] [place] [address] * (ABNORMAL) Basic Metabolic Panel (non-fasting) (10/02/2023 5:21 AM EDT) Pathologist [facility] Glucose 117 65 - 199 mg/dL [facility] Comment:Diabetes: >=200 mg/d L plus symptoms Blood Urea Nitrogen 12 8 - 18 mg/dL [facility] Creatinine 0.60(L) 0.70 - 1.20 mg/dL [facility] Sodium 138 135 - 145 mmol/L [facility] Potassium 3.1(L) 3.5 - 5.0 mmol/L [facility] Comment: Please note: ??Patients with WBC >100,000 may have falsely elevated Potassium levels. ??For accurate Potassium quantification in these patients send serum separator tube (gold top) for subsequent determinations. ??Contact the Clinical Chemistry Laboratory if there are any questions. Chloride 99 98 - 107 mmol/L [facility] Carbon Dioxide 27 22 - 31 mmol/L [facility] Anion Gap 12 5 - 15 mmol/L [facility] Calcium 8.5 8.5 - 10.5 mg/dL [facility] Est Glomerular Filtration Rate 100 >=60 mL/min/1. 73 m?? [facility] Comment: This patient's estimated GFR [...] Garcia MD CHEMISTRY ORDERABLES Performing Organization Address [facility]/ZIP Co de Phone Number [facility] [place] [address] * Magnesium (10/01/2023 5:39 AM EDT) Magnesium 0.85 0.69 - 1.07 mmol/L [facility] Blood 10/01/2023 5:39 AM EDT 10/01/2023 6:11 AM EDT Narrative Resulting Agency Comment Spec In Lab Ariana Garcia MD CHEMISTRY ORDERABLES Performing Organization Address [facility] Co de Phone Number [facility] [address] * (ABNORMAL) Basic Metabolic Panel (non-fasting) (10/01/2023 5:39 AM EDT) Glucose 161 65 - 199 mg/dL [facility] Comment:Diabetes: >=200 mg/d L plus symptoms Blood Urea Nitrogen 12 8 - 18 mg/dL [facility] Creatinine 0.62(L) 0.70 - 1.20 mg/dL [facility] Sodium 137 135 - 145 mmol/L [facility] Potassium 3.7 3.5 - 5.0 mmol/L [facility] Comment: Please note: ??Patients with WBC >100,000 may have falsely elevated Potassium levels. ??For accurate Potassium quantification in these patients send serum separator tube (gold top) for subsequent determinations. ??Contact the Clinical Chemistry Laboratory if there are any questions. Chloride 100 98 - 107 mmol/L [facility] Carbon Dioxide 26 22 - 31 mmol/L [facility] Anion Gap 11 5 - 15 mmol/L [facility] Calcium 8.9 8.5 - 10.5 mg/dL [facility] Est Glomerular Filtration Rate 99 >=60 mL/min/1. 73 m?? [facility] Comment: This patient's estimated GFR [...] Garcia MD CHEMISTRY ORDERABLES Performing Organization Address City/[facility]/ZIP Co de Phone Number [facility] [address] * (ABNORMAL) CRP, acute inflammation (10/01/2023 5:39 AM EDT) C-Reactive Protein 185.2(H) <=4.9 mg/L [facility] Blood 10/01/2023 5:39 AM EDT 10/01/2023 6:11 AM EDT Narrative Resulting Agency Comment Spec In Lab Ariana Garcia MD CHEMISTRY ORDERABLES Performing Organization Address City/[facility]/ZIP Co de Phone Number [facility] [address] * (ABNORMAL) Hemogram (10/01/2023 5:39 AM EDT) White Blood Cell 9.8(H) 4.0 - 9.5 x10(3)/[facility] Red Blood Cell 4.32 4.00 - 5.21 x10(6)/[facility] Hemoglobin 13.6 11.7 - 15.5 g/dL [facility] Hematocrit 40.2 35.7 - 45.8 % [facility] Mean Cell Volume 93.1 82.6 - 94.4 fL [facility] Mean Cell Hemoglobin 31.5 27.1 - 32.0 pg [facility] Mean Cell Hemoglobin Concentration 33.8 31.7 - 35.0 g/dL [facility] Platelet 188 145 - 357 x10(3)/[facility] RDW Standard Deviation 44.1 37.0 - 46.0 [facility] RDW coefficient of variation 12.9 11.5 - 14.1 % [facility] Mean Platelet Volume 10.1 7.6 - 12.9 fL [facility] NRBC% auto 0.0 % [facility] NRBC Absolute 0.000 0.000 - 0.000 x10(3)/[facility] Blood 10/01/2023 5:39 AM EDT 10/01/2023 6:11 AM EDT Narrative Resulting Agency Comment Spec In Lab Ariana Garcia MD HEMATOLOGY ORDERABLE S [facility] [place] [address] * XR Abdomen 1 view (Generic) (09/30/2023 8:42 PM EDT) WORKSTATION ID [id number] RAD Anatomical Region Laterality Modality Abdomen N/A [...] who have questions please contact the health intensive care unit nurse that requested your imaging first. ? Electronically signed by: Simone Hines MD, [facility] ([phone]), at 09/30/2023 8:53 PM Narrative 09/30/2023 8:53 PM EDT EXAMINATION: XR [...] patients who have questions please contactthe health intensive care unit nurse that requested your imaging first. Electronically signed by: Simone Hines MD, [facility]([phone]), at 09/30/2023 8:53 PM Ariana Garcia MD IMG DX ORDERABLES * (ABNORMAL) Phosphorus (09/30/2023 7:17 PM EDT) Pathologist [facility] Phosphorus 2.4(L) 2.5 - 4.5 mg/dL [facility] Blood 09/30/2023 7:17 PM EDT 09/30/2023 7:26 PM EDT Narrative Resulting Agency Comment Spec In Lab Ariana Garcia MD CHEMISTRY ORDERABLES [facility] [place] [address] * Magnesium (09/30/2023 7:17 PM EDT) Pathologist [facility] Magnesium 0.77 0.69 - 1.07 mmol/L [facility] Blood 09/30/2023 7:17 PM EDT 09/30/2023 7:26 PM EDT Narrative Resulting Agency Comment Spec In Lab Ariana Garcia MD CHEMISTRY ORDERABLES Performing Organization Address City/[facility]/ZIP Co de Phone Number [facility] [address] * (ABNORMAL) Hemogram (09/30/2023 7:17 PM EDT) Pathologist [facility] White Blood Cell 10.8(H) 4.0 - 9.5 x10(3)/mc L [facility] Red Blood Cell 4.46 4.00 - 5.21 x10(6)/mc L [facility] Hemoglobin 14.0 11.7 - 15.5 g/dL [facility] Hematocrit 40.5 35.7 - 45.8 % [facility] Mean Cell Volume 90.8 82.6 - 94.4 fL [facility] Mean Cell Hemoglobin 31.4 27.1 - 32.0 pg [facility] Mean Cell Hemoglobin Concentration 34.6 31.7 - 35.0 g/dL [facility] Platelet 181 145 - 357 x10(3)/mc L [facility] RDW Standard Deviation 42.5 37.0 - 46.0 fL [facility] RDW coefficient of variation 12.8 11.5 - 14.1 % [facility] Mean Platelet Volume 10.0 7.6 - 12.9 fL [facility] NRBC% auto 0.0 % [facility] NRBC Absolute 0.000 0.000 - 0.000 x10(3)/mc L [facility] Blood 09/30/2023 7:17 PM EDT 09/30/2023 7:26 PM EDT Narrative Resulting Agency Comment Spec In Lab Ariana Garcia MD HEMATOLOGY ORDERABLE S Performing Organization Address City/State/[facility] Co de Phone Number [facility] [address] * (ABNORMAL) Basic Metabolic Panel (non-fasting) (09/30/2023 7:17 PM EDT) Glucose 166 65 - 199 mg/dL [facility] Comment:Diabetes: >=200 mg/d L plus symptoms Blood Urea Nitrogen 10 8 - 18 mg/dL [facility] Creatinine 0.62(L) 0.70 - 1.20 mg/dL [facility] Sodium 139 135 - 145 mmol/L [facility] Potassium 3.8 3.5 - 5.0 mmol/L [facility] Comment: Please note: ??Patients with WBC >100,000 may have falsely elevated Potassium levels. ??For accurate Potassium quantification in these patients send serum separator tube (gold top) for subsequent determinations. ??Contact the Clinical Chemistry Laboratory if there are any questions. Chloride 102 98 - 107 mmol/L [facility] Carbon Dioxide 23 22 - 31 mmol/L [facility] Anion Gap 14 5 - 15 mmol/L [facility] Calcium 8.9 8.5 - 10.5 mg/dL [facility] Est Glomerular Filtration Rate 99 >=60 mL/min/1. 73 m?? [facility] Comment: This patient's estimated GFR [...] Garcia MD CHEMISTRY ORDERABLES Performing Organization Address City/State/[facility] Co de Phone Number [facility] [address] * XR Abdomen Acute Series w PA Chest (09/30/2023 6:14 PM EDT) Pathologist [employer] WORKSTATION ID [id number] RAD Anatomical Region Laterality Modality Abdomen, Chest [...] who have questions please contact the health intensive care unit nurse that requested your imaging first. ? Electronically signed by: Simone Hines MD, [facility] ([phone]), at 09/30/2023 7:26 PM Narrative 09/30/2023 7:26 PM EDT EXAMINATION: XR [...] patients who have questions please contactthe health intensive care unit nurse that requested your imaging first. Ariana Garcia MD IMG DX ORDERABLES * (ABNORMAL) Hemogram (09/30/2023 9:27 AM EDT) [facility] White Blood Cell 10.9(H) 4.0 - 9.5 x10(3)/mc L [facility] Red Blood Cell 4.50 4.00 - 5.21 x10(6)/mc L [facility] Hemoglobin 14.0 11.7 - 15.5 g/dL [facility] Hematocrit 41.0 35.7 - 45.8 % [facility] Mean Cell Volume 91.1 82.6 - 94.4 fL [facility] Mean Cell Hemoglobin 31.1 27.1 - 32.0 pg [facility] Mean Cell Hemoglobin Concentration 34.1 31.7 - 35.0 g/dL [facility] Platelet 179 145 - 357 x10(3)/mc L [facility] RDW Standard Deviation 42.9 37.0 - 46.0 fL [facility] RDW coefficient of variation 12.8 11.5 - 14.1 % [facility] Mean Platelet Volume 10.0 7.6 - 12.9 fL [facility] NRBC% auto 0.0 % [facility] NRBC Absolute 0.000 0.000 - 0.000 x10(3)/mc L [facility] Blood 09/30/2023 9:27 AM EDT 09/30/2023 9:54 AM EDT Narrative Resulting Agency Comment Spec In Lab Ariana Garcia MD HEMATOLOGY ORDERABLE S [facility] [place] [address] * Magnesium (09/30/2023 5:45 AM EDT) Magnesium 0.75 0.69 - 1.07 mmol/L [facility] Blood 09/30/2023 5:45 AM EDT 09/30/2023 5:58 AM EDT Narrative Resulting Agency Comment Spec In Lab Ariana Garcia MD CHEMISTRY ORDERABLES [facility] [address] * Basic Metabolic Panel (non-fasting) (09/30/2023 5:45 AM EDT) Glucose 150 65 - 199 mg/dL [facility] Comment:Diabetes: >=200 mg/d L plus symptoms Blood Urea Nitrogen 10 8 - 18 mg/dL [facility] Creatinine 0.83 0.70 - 1.20 mg/dL [facility] Sodium 139 135 - 145 mmol/L [facility] Potassium 3.8 3.5 - 5.0 mmol/L [facility] Comment: Please note: ??Patients with WBC >100,000 may have falsely elevated Potassium levels. ??For accurate Potassium quantification in these patients send serum separator tube (gold top) for subsequent determinations. ??Contact the Clinical Chemistry Laboratory if there are any questions. Chloride 102 98 - 107 mmol/L [facility] Carbon Dioxide 25 22 - 31 mmol/L [facility] Anion Gap 12 5 - 15 mmol/L [facility] Calcium 8.9 8.5 - 10.5 mg/dL [facility] Est Glomerular Filtration Rate 78 >=60 mL/min/1. 73 m?? [facility] Comment: This patient's estimated GFR [...] Garcia MD CHEMISTRY ORDERABLES Performing Organization Address City/[facility]/ZIP Co de Phone Number [facility] [address] * (ABNORMAL) CRP, acute inflammation (09/30/2023 5:45 AM EDT) C-Reactive Protein 286.3(H) <=4.9 mg/L [facility] Blood 09/30/2023 5:45 AM EDT 09/30/2023 5:58 AM EDT Narrative Resulting Agency Comment Spec In Lab Ariana Garcia MD CHEMISTRY ORDERABLES Performing Organization Address City/[facility]/ZIP Co de Phone Number [facility] [address] * Magnesium (09/29/2023 1:17 PM EDT) Magnesium 0.70 0.69 - 1.07 mmol/L [facility] Blood 09/29/2023 1:17 PM EDT 09/29/2023 1:27 PM EDT Narrative Resulting Agency Comment Spec In Lab Ariana Garcia MD CHEMISTRY ORDERABLES Performing Organization Address [facility]/ZIP Co de Phone Number [facility] [address] * Basic Metabolic Panel (non-fasting) (09/29/2023 1:17 PM EDT) Glucose 130 65 - 199 mg/dL [facility] Comment:Diabetes: >=200 mg/d L plus symptoms Blood Urea Nitrogen 11 8 - 18 mg/dL [facility] Creatinine 0.86 0.70 - 1.20 mg/dL [facility] Sodium 141 135 - 145 mmol/L [facility] Potassium 4.3 3.5 - 5.0 mmol/L [facility] Comment: Please note: ??Patients with WBC >100,000 may have falsely elevated Potassium levels. ??For accurate Potassium quantification in these patients send serum separator tube (gold top) for subsequent determinations. ??Contact the Clinical Chemistry Laboratory if there are any questions. Chloride 103 98 - 107 mmol/L [facility] Carbon Dioxide 27 22 - 31 mmol/L [facility] Anion Gap 11 5 - 15 mmol/L [facility] Calcium 9.0 8.5 - 10.5 mg/dL [facility] Est Glomerular Filtration Rate 75 >=60 mL/min/1. 73 m?? [facility] Comment: This patient's estimated GFR [...] In Lab Ariana Garcia MD CHEMISTRY ORDERABLES [facility] [place] [address] * EKG 12 Lead (09/29/2023 1:10 PM EDT) Ventricular rate 96 BPM MUSE SYSTEM Atrial Rate 96 BPM MUSE SYSTEM P-R Interval 170 ms MUSE SYSTEM QRS Duration 88 ms MUSE SYSTEM Q-T Interval 352 ms MUSE SYSTEM QTC Calculated (Bezet) 444 ms MUSE SYSTEM Calculated P Webster 40 degrees MUSE SYSTEM Calculated R Webster 12 degrees MUSE SYSTEM Calculated T Webster 49 degrees MUSE SYSTEM INTERPRETATION Normal sinus [...] EDT) Hemoglobin 15.0 11.7 - 15.5 g/dL [facility] Hematocrit 43.5 35.7 - 45.8 % [facility] Blood 09/29/2023 1:04 AM EDT 09/29/2023 1:07 AM EDT Narrative Resulting Agency Comment Spec In Lab Ariana Garcia MD HEMATOLOGY ORDERABLE S [facility] [place] [address] * Creatinine (09/29/2023 1:04 AM EDT) Creatinine 0.72 0.70 - 1.20 mg/dL [facility] Est Glomerular Filtration Rate 93 >=60 mL/min/1. 73 m?? [facility] Comment: This patient's estimated GFR [...] Garcia MD CHEMISTRY ORDERABLES Performing Organization Address City/[facility]/ZIP Co de Phone Number [facility] [place] [address] * (ABNORMAL) Hemoglobin and Hematocrit, blood (09/28/2023 5:50 PM EDT) Hemoglobin 15.6(H) 11.7 - 15.5 g/dL [facility] Hematocrit 46.4(H) 35.7 - 45.8 % [facility] Blood 09/28/2023 5:50 PM EDT 09/28/2023 6:02 PM EDT Narrative Resulting Agency Comment Spec In Lab Ariana Garcia MD HEMATOLOGY ORDERABLE S Performing Organization Address City/[facility] Co de Phone Number [facility] [address] * Creatinine (09/28/2023 5:50 PM EDT) Creatinine 0.93 0.70 - 1.20 mg/dL [facility] Est Glomerular Filtration Rate 68 >=60 mL/min/1. 73 m?? [facility] Comment: This patient's estimated GFR [...] Garcia MD CHEMISTRY ORDERABLES Performing Organization Address [facility] de Phone Number [facility] [place] [address] * Specimen to Pathology (09/28/2023 4:25 PM EDT) AP Specimen 09/28/2023 4:25 PM EDT 09/28/2023 4:25 PM EDT Narrative [facility] - 09/28/2023 4:25 PM EDT Specimen requisition ordered. ??Separate Pathology report to follow Ariana Garcia MD PATHOLOGY/CYTOLOGY O RDERABLES Performing Organization Address [facility] Co de Phone Number [facility] [place] [address] * Specimen to Pathology (09/28/2023 4:23 PM EDT) AP Specimen 09/28/2023 4:23 PM EDT 09/28/2023 4:23 PM EDT Narrative [facility] - 09/28/2023 4:23 PM EDT Specimen requisition ordered. ??Separate Pathology report to follow Ariana Garcia MD PATHOLOGY/CYTOLOGY O RDERABLES Performing Organization Address [facility] de Phone Number [facility] [address] * Surgical Pathology Report (09/28/2023 4:15 PM EDT) Final Diagnosis [id number] ? Location: [place]; [facility]; A The signing pathologist has (i) [...] Kimberly Verified: ??10/26/2023 17:22 ??Pathologist Performed at: ??-[facility] Dept. of Pathology, [place] [address] Tray Drier Operator: Alejandra Parmar MD, FCAP, ??CLIA Certificate: [id number] DISCUSSION Part A: Per electronic clinical notes, patient with a known history of colon cancer with evidence of peritoneal disease who underwent preoperative neoadjuvant treatment was noted. Patient's previous biopsies show invasive adenocarcinoma ([id number]) of unclear origin either appendiceal versus cecal [...] concurred diagnosis. ADDITIONAL STUDIES Whole slide scan: [id number] [id number] [id number] A7-1 [id number] A8-1 [id number] SPECIMEN(S) SUBMITTED A - Right Colon, excision [...] from the primary krzysztof basin Sections/Processin g: Regional Marketing Manager sections in 35 cassettes as follows: ?A1: [...] smooth with no identified lesions. Sections/Processin g: Regional Marketing Manager sections in 2 cassettes as follows: ?B1: ??Small bowel margin ?B2: ??Colon margin ??ajw 10/26/2023 5:22 PM EDT [facility] COLON STRUCTURE / Unknown 09/28/2023 4:15 PM EDT 09/28/2023 4:15 PM EDT Stoma 09/28/2023 4:15 PM EDT 09/28/2023 4:15 PM EDT Ariana Garcia MD PATHOLOGY/CYTOLOGY O RDERABLES [facility] [place] [address] * POCT Glucose (09/28/2023 1:35 PM EDT) Glucose, POC 81 65 - 199 mg/dL [facility] Comment: Supplemental ranges: <140 mg/dL before meals <180 mg/dL all other times of the day Blood 09/28/2023 1:35 PM EDT 09/28/2023 1:35 PM EDT Ariana Garcia MD POINT OF CARE TEST O RDERABLES [facility] [place] [address] documented in this encounter Visit Diagnoses Not on filedocumented in this encounter Admitting Diagnoses Diagnosis Colon cancer Malignant neoplasm of colon, unspecified site documented in this encounter Administered Medications Inactive Administered Medications - up to 3 most recent administrations Medication Order MAR Action Action Date Dose Rate Site acetaminophen (Tylenol) tablet 975 mg 975 mg, [...] Given 10/03/2023 7:52 PM EDT 10 mg enoxaparin (Lovenox) (40 mg/0.4 mL) subcutaneous injection 40 mg 40 mg, Subcutaneous, NIGHTLY, First dose on Wed09/28/23 at 2100, Until Discontinued, Routine Given 10/03/2023 7:51 PM EDT 40 mg Given 10/02/2023 8:23 PM EDT 40 mg Given 10/01/2023 8:47 PM EDT 40 mg hydrALAZINE (Apresoline) (20 mg/mL) injection 10 mg 10 mg, Intravenous, EVERY 4 HOURS PRN, Starting on Wed10/01/23 at 0543, Until Wed10/04/23 at 1349, High Blood Pressure, PRN for SBP >160 or HR >100, secondline Given 10/02/2023 5:52 PM EDT 10 mg Given 10/01/2023 5:26 PM EDT 10 mg HYDROmorphone (Dilaudid) (0.5 mg/0.5 mL) injection [...] Given 09/30/2023 5:20 PM EDT 0.5 mg influenza vaccine adjuvanted (Adult 65 Yrs [...] Given 10/02/2023 3:55 PM EDT 20 mg lidocaine (Lidoderm) 5% patch 3 patch 3 [...] Given 10/01/2023 1:10 PM EDT 8 mg pantoprazole (Protonix) injection 40 mg 40 mg, Intravenous, DAILY, First dose on Wed09/30/23 at 1845, Until Discontinued, Reconstitute with 10 mL of normal saline to a concentration of 4 mg/mL and inject slowly over 2 minutes. Given 10/04/2023 8:08 AM EDT 40 mg Given 10/03/2023 9:30 AM EDT 40 mg Given 10/02/2023 9:02 AM EDT 40 mg phenoL 1.4% (Chloraseptic) spray 1 spray 1 spray, Oral, EVERY 2 HOURS PRN, Starting on Jaeyln 09/30/23 at 2037, Until Wed10/04/23 at 1349, Irritation, Routine Given 10/01/2023 4:43 PM EDT 1 spray Given 10/01/2023 1:04 PM EDT 1 spray Given 10/01/2023 3:41 AM EDT 1 spray sodium chloride 0.9 % (flush) (BD PosiFlush [...] EVERY 6 HOURS SCHEDULED, First dose on 10/03/23 at 1200, Until Discontinued, Maximum dose of [...] 1 dose, On 10/02/23 at 2300, Routine 223 (Given - Provider: [...] Teresa Mann RN)1016 (Stopped - Provider: Teresa Mann RN) magnesium sulfate 1 g in dextrose 5% 100 mL infusion (COMPLETED) 1 g, Intravenous, ONCE, 1 dose, On Wed10/04/23 at 0745, Administer over 60 Minutes 0807 (New Bag - Provider: Kell Marquez RN)0907 (Stopped - Provider: Kell Marquez RN) pantoprazole [...] Mann RN)1341 (New Bag - Provider: Teresa Mann RN)1441 (Stopped - Provider: Teresa Mann RN)1442 (New Bag - Provider: Teresa Mann RN)1542 (Stopped - Provider: Venessa Bustillos, RN)1543 (New Bag - Provider: Venessa Bustillos, RN)1643 (Stopped - Provider: Teresa Mann RN) potassium chloride ER (Klor-Con M) crystal tablet 20 mEq (COMPLETED) 20 mEq, Oral, 3 TIMES DAILY, 3 doses, First dose on 10/03/23 at 0900, Last dose on 10/03/23 at 2100, potassium chloride ER particle/crystal tablets (Klor-Con M) may be broken in half and each half swallowed separately. Tablets can be dissolved in ~4 ounces of water; allow ~2 minutes to dissolve, stir well and drink immediately. Do not crush, chew, or suck on tablet., Routine 0930 (Given - Provider: Teresa Mann RN)1441 (Given - Provider: Teresa Mann RN)1952 (Given - Provider: Diogenes Soni RN)2100 (Not [...] 2100, Until Discontinued, Recovery (Recovery-Hospital Unit), Routine 0913 (Given - Provider: Teresa Mann RN)2022 (Given - Provider: Pattie Cyr, MANOHAR) 0931 (Given - Provider: Teresa Mann RN)2100 (Not [...] Cyr RN) 0845 (Stopped - Provider: Teresa Mann RN) PRN Medication Order 10/02/2023 10/03/2023 10/04/2023 [...] >100, secondline 175 (Given - Provider: Teresa Mann RN) HYDROmorphone (Dilaudid) (0.5 mg/0.5 mL) injection syringe [...] Pattie Cyr RN)1314 (Given - Provider: Teresa Mann, MANOHAR)1555 (Given - Provider: Teresa Mann, RN)2023 (Given - Provider: Pattie Cyr, MANOHAR) 0428 (Given - Provider: Pattie Cyr, MANOHAR) lidocaine (Xylocaine) 1% (10 mg/mL) injection 3 [...] 1349, Nausea 0548 (Given - Provider: Marlyn Aviles, RN)1619 (Given - Provider: Teresa Mann RN) [...] Routine documented in this encounter Care Teams Senior Tax Accountant Relationship Specialty Start Date End Date Hina Johnson [address] [place] [address] PCP - General Family Medicine 06/25/23 documented as of this encounter
--- OUTSIDE RECORDS SUMMARY | 2024-01-26 03:08 | XMS_ITS | Encounter Summary ---
Author Organization [facility] Address [facility] [place] [address] Care Team Providers Care Electrical System Specialist Name Role Phone CristobalEliza Hina Primary Care Provider [phone] Encounter Details Date Type Department Care Team (Latest Contact Info) Description 09/09/2023 3:30 PM EDT - 09/09/2023 11:59 PM EDT Hospital Encounter [place] [phone] Adenocarcinoma, 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 Social History Tobacco [...] 250 mg tablet Take by mouth. 10/28/2023 metroNIDAZOLE (FlagyL) 500 mg tablet Take 4 tablets by mouth 2 times daily for 2 doses. Take 4 tablets at 7PM and 4 Tablets at 11PM the night before surgery 8 tablet 09/09/2023 09/10/2023 neomycin (Mycifradin) 500 mg tablet Take 4 tablets by mouth 2 times daily for 2 doses. Take 4 tablets at 7PM and 4 Tablets at 11PM the night before surgery 8 tablet 09/09/2023 09/10/2023 ondansetron (Zofran) 8 mg tablet Take 1 tablet by mouth every 8 hours for 3 doses. Take 1 tablet at 1PM the afternoon before surgery then every 8 hours 3 tablet 09/09/2023 09/10/2023 Ca carb-Ca gluc-Mg ox-Mg gluco 500 mg calcium -250 mg Tablet Take 2 tablets by mouth daily. 03/30/2023 10/28/2023 Acetylcysteine (NAC) 600 mg capsule 600 mg. 11/07/2021 09/28/2023 documented as of this encounter Plan of Treatment Upcoming Encounters Date Type Department Care Team (Late st Contact Info) Description 01/28/2024 10:30 AM EDT Office Visit Hematology/Oncolog y at [address] [phone] Derek Lindquist MD [facility] [place] [address] Ann Tello APRN [address] [place] [address] [place] [address] 03/24/2024 1:00 PM EDT Hospital Encounter [place] [phone] Shilo Lopez MD [facility] [place] [address] 03/24/2024 1:00 PM EDT - 03/24/2024 1:45 PM EDT Surgery [place] [address] Shilo Lopez MD [facility] [place] [address] COLONOSCOPY, DIAGNOSTIC (WRVU 3.26) Scheduled Procedures Name [...] Procedure Name Priority Date/Time Associated Diagnosis Comments EKG 12-LEAD Routine 09/09/2023 3:44 PM EDT Adenocarcinoma, appendix documented in this encounter Results * EKG 12 Lead (09/09/2023 3:44 PM EDT) Ventricular rate 80 BPM MUSE SYSTEM Atrial Rate 80 BPM MUSE SYSTEM P-R Interval 154 ms MUSE SYSTEM QRS Duration 80 ms MUSE SYSTEM Q-T Interval 368 ms MUSE SYSTEM QTC Calculated (Bezet) 424 ms MUSE SYSTEM Calculated P [place] 62 degrees MUSE SYSTEM Calculated R [place] 48 degrees MUSE SYSTEM Calculated T [place] 64 degrees MUSE SYSTEM INTERPRETATION Normal sinus rhythm Normal ECG No previous ECGs available Confirmed by MD TOI, JON ([id number]) on 09/10/2023 7:29:16 AM MUSE SYSTEM 09/09/2023 3:44 PM EDT 09/10/2023 7:29 AM EDT Ema Garcia MD ECG ORDERABLES MUSE SYSTEM documented in this encounter Visit Diagnoses Diagnosis Adenocarcinoma, 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
--- OUTSIDE RECORDS SUMMARY | 2024-01-26 03:08 | XMS_ITS | Encounter Summary ---
Author Organization [facility] Address [facility] [place] [address] Care Team Providers Care Professor Of Biochemistry Name Role Phone Hina Johnson Primary Care Provider [phone] Encounter Details Date Type Department Care Team (Latest Contact Info) Description 08/13/2023 Travel Social History Tobacco Use Types Packs/Day [...] EDT Office Visit Hematology/Oncolog y at [address] [phone] Derek Lindquist MD [facility] [place] [address] Ann Tello APRN [address] [place] [address] DR HEMATOLOGY [place] [address] 03/24/2024 1:00 PM EDT Hospital Encounter [place] [address] Shilo Lopez MD [facility] [place] [address] 03/24/2024 1:00 PM EDT - 03/24/2024 1:45 PM EDT Surgery [place] [address] Shilo Lopez MD [facility] [place] [address] COLONOSCOPY, DIAGNOSTIC (WRVU 3.26) Scheduled Procedures Name [...] on filedocumented in this encounter Care Teams Professor Of Biochemistry Relationship Specialty Start Date End Date Hina Johnson [address] [place] [address] PCP - General Family Medicine 06/25/23 documented as of this encounter
--- OUTSIDE RECORDS SUMMARY | 2024-01-26 03:08 | XMS_ITS | Encounter Summary ---
Author Organization [facility] [place] [address] Care Team Providers Care Athletic Field Custodian Name Role Phone EloisaAlvaro Hina Primary Care Provider [phone] Reason for Visit * Auth/Cert (Routine) Specialty Diagnoses / Procedures Referred By Macy t Referred To Contact Diagnoses appendicitis Procedures PRO LAP, SURG, COLECTOMY, W/REMVL TERM ILEUM PRO LAP, APPENDECTOMY PRO CYSTOSCOPY, INSERT URETERAL STENT @LAPAROSCOPIC ASSISTED COLECTOMY, PARTIAL, REM.TERMINAL ILEUM (WRVU 22.95) LAPAROSCOPIC APPENDECTOMY (WRVU 9.45) CYSTO, STENT PLACEMENT INTRAOP, TEMPORARY (WRVU 2.82) Ema Garcia MD [facility] [place] [address] [facility] Referral ID Status Reason Start Date Expiration Date Visits Re quested Visits Authorized [id number] 1 1 Encounter Details Date Type Department Care Team (Late st Contact Info) Description 09/28/2023 1:39 PM EDT Anesthesia [place] [address] Telly Sifuentes MD [facility] ANESTHESIOLOGY DEPT [place], [place] [id number] Molly Ashton CRNA [facility] ANESTHESIOLOGY DEPT [place], [place] [id number] Anesthesia Record Procedure Summary Procedure Name Responsible Anesthesiologist Anesthesia Start Time Anesthesia Stop Time @LAPAROSCOPIC ASSISTED COLECTOMY, PARTIAL, REM.TERMINAL ILEUM (WRVU 22.95) (Abdomen) Telly Sifuentes MD 09/28/23 1339 09/28/23 1731 Events Date Time Event Comment 09/28/2023 1256 1339 AN Verify 1339 Start 1343 An Start Data 1350 An Induction 1356 An Intubation 1400 Anesthesia Ready 1424 Break/Relief In I assumed ca re for Break Relief before which we: 1. Identified the patient 2. Identified the responsible provider(s) 3. Reviewed the pertinent medical history 4. Discussed the surgical plan and course 5. Reviewed intra-op anesthesia management and issues during anesthesia 6. Set expectations for the relief (and/or post-procedure) period 7. Allowed opportunity for questions and acknowledgement of understanding Simone Barakat CRNA 1433 Procedure Start 1439 Break/Relief Out 1721 Extubation/LMA Out 1722 an stop data 1731 Recovery or ICU Handoff Chantelle ent care was transferred to the destination unit staff after review of the patient's medical history, current anesthetic/surgical status and plan, according to the Provider Handoff Checklist. 1731 Stop Meds Name Total Midazolam 2 mg fentaNYL 100 mcg IV Lidocaine 50 mg Propofol 200 mg Rocuronium 50 mg Ondansetron 4 mg Dexamethasone 8 mg levoFLOXacin (Levaquin) 750 mg in dextro se 5% 150 mL infusion 750 mg metroNIDAZOLE (Flagyl) 500 mg in sodium chloride 0.9% 100 mL infusion 500 mg ROpivacaine 0.2% 60 mL rocuronium (Zemuron) (0.5 mg/mL) in sodi um chloride 0.9% 100 mL infusion 48 mg dexmedeTOMIDine 20 mcg HYDROmorphone 0.8 mg propofol INF 451.01 mg PHENYLephrine INF 450 mcg sugammadex 180 mg lactated ringers 1,000 mL lactated ringers infusion 1,000 mL * Agents Name O2 * Blood No blood administrations on file. Lines, Drains, and Airways Type Details Placement Removal Incision 09/28/23; 1433; abdomen 09/28/23 1433 by Anny Becker RN Incision 04/14/23; 1105; Righ t; clavicle; non-laparascopic puncture; Mediport IJ Access Site (DO Sathish); LDA not present upon assessment; 09/28/23; 1342 11/01/23 1105 by Liv Rubi RN 09/28/23 1342 by Anny Becker RN Incision 04/14/23; 1106; Righ t; chest; horizontal; Mediport Access Site ([facility]); LDA not present upon assessment; 09/28/23; 1342 04/14/23 1106 by Liv Rubi RN 09/28/23 1342 by Anny Becker RN (RETIRED) Implanted Port - Single Lumen (non-apheresis) 04/14/23; 1108; infraclavicular fossa, right; power injectable port; superior vena cava; placement verified by x-ray; [facility]; Lot No. [id number]; 11/04/23; 1139 04/14/23 1108 by Liv Rubi RN 11/04/23 1139 by Cheli Oglesby RN PIV 06/04/23; 1516; xsco-hgg-xalmuz catheter system; 20 gauge; metacarpal vein (top of hand), right; distraction, intradermal injection, tolerated well; LDA not present upon assessment; 09/28/23; 1340 06/04/23 1516 by Bora Avila LPN 09/28/23 1340 by Liv Carvajal RN PIV 09/28/23; 1340; 20 g auge; metacarpal vein (top of hand), right; Anatomical Landmarks; MILLIE yu; tolerated well, distraction, appears comfortable; 10/02/23; 1127 09/28/23 1340 by Liv Carvajal RN 10/02/23 1127 by Lois Wilson RN ETT Mask Ventilation: Ad junct (2); ETT Type: Cuffed, Oral; ETT Size: 7 mm; Mac Blade: 4; Exchange: Bougie; Notes: Asleep, Pre-O2, Stylette; Attempts: 2; Laryngoscopy Grade: 3; ETT Placement Verified By: Visual, Capnometry; Secured at Teeth: 22 cm; Inserted by: Poli PINTO; Removal Date: 09/28/23; Removal Time: 1721 09/28/23 1356 by Molly Ashton CRNA 09/28/23 1721 by Molly Ashton CRNA PIV 09/28/23; 1400; vzib-few-xiinxc catheter system; 18 gauge; dorsal arch vein (top of hand), left; Anatomical Landmarks; US Not Used; Poli PINTO; tolerated well; 10/02/23; 1127 09/28/23 1400 by Molly Ashton CRNA 10/02/23 1127 by Lois Wilson RN NG/OG Tube 09/28/23; 1400; orogastric; 16 Fr; center mouth; Secured; 09/28/23; 1654 09/28/23 1400 by Molly Ashton CRNA 09/28/23 1654 by Molly Ashton CRNA Urethral Catheter 09/28/23; 1419; Surg daxa longer than 2 hours, Abdominal surgery, Need for intraoperative urine output monitoring, Physician order; other (see comments) (tip); latex; 16; inserted at this facility; 1; 5; 10; inserted by Urology; 09/30/23; 1330 09/28/23 1419 by Zahra Campos RN 09/30/23 1330 by Jenny Cleveland RN Ureteral Catheter 09/28/23; 1419; herrera t ureter; 09/28/23; 1716 09/28/23 1419 by Zahra Campos RN 09/28/23 1716 by Theresa Arnold RN documented in this encounter Social History Tobacco Use Types Packs/Day Years Used Date Smoking Tobacco: Former Cigarettes Smokeless Tobacco: Never Alcohol Use Standard Drinks/Week Comments Yes 0 (1 standard drink = 0.6 oz pur e alcohol) few times yearly [facility] Utilities Answer Date Recorded In the past 12 months has e [employer], gas, oil, or water [employer] threatened to shut off services in your [...] on file documented as of this encounter OR Notes * Anesthesia Postprocedure Evaluation - Telly Sifuentes MD - 09/28/2023 6:08 PM EDT Department of Anesthesiology Post-procedure Note Patient: Blanca Lujan Procedure Summary Date: 09/28/23 Room / Location: [facility] OR [address] [place] [address] MAIN OR Anesthesia Start: 1339 Anesthesia Stop: 173 Procedures: @LAPAROSCOPIC ASSISTED COLECTOMY, PARTIAL, REM.TERMINAL ILEUM (WRVU 22.95) (Abdomen) LAPAROSCOPIC PARTIAL OMENTECTOMY (WRVU 15.67) (Abdomen) CYSTO, STENT PLACEMENT INTRAOP, TEMPORARY (WRVU 2.82) (Right: Ureter) Diagnosis: (appendicitis) (Colon cancer) Surgeons: Ema Garcia MD; Shon Lewis MD Responsible Provider: Telly Sifuentes MD Anesthesia Type: general ASA Status: 3 All Anesthesia Providers: Anesthesiologist: Lam John MD; Tricia Marin MD; Telly Sifuentes MD CLINICAL MATERIAL HANDLER: Molly Ashton CRNA Vitals Value Taken Time BP 167/88 09/28/23 1800 Temp 36.1 ??C (97 ??F) 09/28/23 1724 Pulse 76 09/28/23 1807 Resp 17 09/28/23 1807 SpO2 96 % 09/28/23 1807 Pain Level 6 09/28/23 1802 Vitals shown include unfiled device data. Patient Location: PACU/[facility] Level of Consciousness: Conscious but Sleepy Pain Management: Satisfactory Analgesia PONV: None Cardiovascular Status: Hemodynamically Stable and At Baseline Respiratory Status: Supplemental O2 (NC or FM) and Stable Respiratory Status Postoperative Fluid Status: Intravascular EUvolemia Possible Anesthetic Complications: NONE apparent at time of evaluation Final Primary Anesthesia Type: General (The anesthetic type performed was the same as planned.) Comments: * Anesthesia Procedure Notes - Dillon Russ MD - 09/28/2023 2:03 PM EDT Associated Order(s): Anesthesia Block Anesthesia Block Date/Time: 09/28/2023 1:50 PM Start Time: 09/28/2023 1:50 PM End Time: 09/28/2023 2:00 PM Patient Location: Main OR The patient was greeted; the risks and benefits of the procedure were reviewed. Indication: Post-op Pain Control Post-op pain management at the request of surgeon. Block Type: TAP Laterality: Bilateral Position: Supine Prep: Chlorhexidine and mask, cap, sterile gloves, hand hygeine Block Technique: SonoPlex 21 10 cm Ultrasound Guided: YES and in-plane Ultrasound Image Saved Single-Shot: Single-shot Local Anesthetic Volume(s) Injected for Nerve Block: ROpivacaine 0.2% - Perineural 60 mL - 09/28/2023 1:50:00 PM Nerve Sensory/MotorTest: Events: no complications Notes: Target structures, needle, and local anesthetic spread were visualized under US guidance for the duration of the procedure. No blood aspirated, no pain on injection, no paresthesias. No needle to nerve contact was observed on ultrasound. Performed by: Fellow: Dillon Russ MD Attending Physician: Tricia Marin MD Authorized by: Tricia Marin MD * Anesthesia Preprocedure Evaluation - Lam John MD - 09/28/2023 12:54 PM EDT Pre-Anesthesia Evaluation for: Blanca Lujan a 67 y.o. female. Procedure(s): @LAPAROSCOPIC ASSISTED COLECTOMY, PARTIAL, REM.TERMINAL ILEUM (WRVU 22.95) LAPAROSCOPIC APPENDECTOMY (WRVU 9.45) CYSTO, STENT PLACEMENT INTRAOP, TEMPORARY (WRVU 2.82) Patient Active Problem List Diagnosis Date Noted ??? 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 Abnormal CT scan, gastrointestinal tract 02/26/2023 ??? Malignant neoplasm of overlapping sites of colon 02/26/2023 ??? Colonic mass 02/26/2023 ??? Elevated carcinoembryonic antigen (CEA) 02/26/2023 ??? Bruxism 02/26/2023 ??? Depressive disorder 02/26/2023 ??? Elevated blood-pressure reading without diagnosis of hypertension 02/26/2023 ??? Lack of energy 02/26/2023 ??? ZARA (obstructive sleep apnea) 02/26/2023 ??? Posttraumatic stress disorder 02/26/2023 ??? Snoring 02/26/2023 ??? Vitamin D deficiency 02/26/2023 No past medical history on file. Past Surgical History: Procedure Laterality Date ??? IR MEDIPORT PLACEMENT 04/14/2023 IR Mediport Placement 04/14/2023 David Bower, DO [facility] INTERVENTIONL RAD ??? PRO COLONOSCOPY, BIOPSY N/A 03/16/2023 COLONOSCOPY FLEXIBLE, WITH BX (WRVU 3.56) performed by Shilo Lopez MD at [facility] ENDOSCOPY ??? PRO UNLISTED PX RECTUM N/A 03/16/2023 LOWER EUS- ENDOSCOPIC ULTRASOUND (WRVU 7.56) performed by Shilo Lopez MD at [facility] ENDOSCOPY ??? PRO UPGI ENDOSCOPY W/US FN BX 03/16/2023 EGD, W US GUIDED FINE NEEDLE ASPIRATION/BIOPSY (WRVU 4.16) performed by Shilo Lopez MD at [facility] ENDOSCOPY Social History Tobacco Use ??? Smoking status: Former Types: Cigarettes ??? Smokeless tobacco: Never Substance Use Topics ??? Alcohol use: Yes Comment: few times yearly Social History Substance and Sexual Activity Drug Use Yes ??? Frequency: 7.0 times per week ??? Types: Marijuana Comment: once daily Allergies Allergen Reactions ??? Bactrim [Sulfamethoxazole-Trimethoprim] Hives ??? Keflex [Cephalexin] Hives Medications: MAR and/or home medications have been reviewed. Physical Exam: Preprocedure Vitals Current as of 09/28/23 1254 No BP, pulse, respiration, SpO2, or temperature recorded. Height: Weight: BMI: IBW: Airway Assessment: Mallampati: II TM distance: >3 FB Neck ROM: full Cardiovascular Assessment: Rhythm: regular system normal Pulmonary Assessment: breath sounds clear to auscultation pulmonary exam normal Dental Assessment: - normal exam Misc Assessment: Last Filed Perioperative Cognitive Screening None Anesthesia Plan: ASA 3 general, with a(n) intravenous induction Blanca Lujan is a 67 y.o. female who presents for lap assisted colectomy. PMH: Adenocarcinoma, colonic mass, depression, ZARA, PTSD Anesth Hx: No issues METS = 4 Labs: 09/09/23 04/14/23 04/07/23 1400 1549 1614 WBC 10.1* 7.9 8.9 HGB 13.8 13.5 15.0 HCT 39.0 38.3 43.3 PLATELET 193 229 274 09/09/23 04/14/23 04/07/23 1400 1549 1614 NA 140 137 139 K 3.9 4.1 4.0 CL 104 101 101 CO2 26 27 26 BUN 18 15 16 CREATININE 0.64* 0.68* 0.75 09/09/23 04/14/23 04/07/23 1400 1549 1614 AST 21 16 19 ALT 26 14 26 ALKPHOS 85 70 82 BILITOT <0.2* 0.3 0.3 No results for input(s): PT, INR, PTT in the last 168 hours. No results found for: ABORH Pt is appropriately NPO Anesthetic Plan GA with ETT, TAP Block Standard ASA monitors, IV access Region - Other Informed Consent: Anesthetic plan and risks discussed with patient. Plan discussed with CLINICAL MATERIAL HANDLER. Anesthesia Screening documented in this encounter Plan of Treatment Upcoming Encounters Date Type Department Care Team (Late st Contact Info) Description 01/28/2024 10:30 AM EDT Office Visit Hematology/Oncolog y at [address] [phone] Derek Lindquist MD [facility] [place] [address] Ann Tello APRN [address] [place] [address] [place] [address] 03/24/2024 1:00 PM EDT Hospital Encounter [place] [address] Shilo Lopez MD [facility] [place] [address] 03/24/2024 1:00 PM EDT - 03/24/2024 1:45 PM EDT Surgery [place] [phone] Shilo Lopez MD [facility] [address] COLONOSCOPY, DIAGNOSTIC (WRVU 3.26) Scheduled Procedures Name [...] Procedure Name Priority Date/Time Associated Diagnosis Comments ANESTHESIA BLOCK Routine 09/28/2023 1:50 PM EDT documented in this encounter Results * Anesthesia Block (09/28/2023 1:50 PM EDT) Narrative Tricia Marin MD - 09/28/2023 1:50 PM EDT Dillon Russ MD ? 09/28/2023 ??2:03 PM Anesthesia Block Date/Time: 09/28/2023 1:50 PM Start Time: ??09/28/2023 1:50 PM End Time: ??09/28/2023 2:00 PM Patient Location: ??Main OR The patient was greeted; the risks and benefits of the procedure were reviewed. ?? Indication: ??Post-op Pain Control Post-op pain management at the request of surgeon. ?? Block Type: ??TAP Laterality: ??Bilateral Position: ??Supine Prep: ??Chlorhexidine and mask, cap, sterile gloves, hand hygeine Block Technique: ?? SonoPlex ?? 21 ?? 10 cm ??Ultrasound Guided: ??YES and in-plane ??Ultrasound Image Saved ?Single-Shot: ??Single-shot Local Anesthetic Volume(s) Injected for Nerve Block: ?? ROpivacaine 0.2% - Perineural 60 mL - 09/28/2023 1:50:00 PM Nerve Sensory/MotorTest: ??Events: no complications ?? Notes: ?? Target structures, needle, and local anesthetic spread were visualized under US guidance for the duration of the procedure. No blood aspirated, no pain on injection, no paresthesias. No needle to nerve contact was observed on ultrasound. Performed by: ?? Fellow: ?Dillon Russ MD ?? Attending Physician: ? Tricia Marin MD Authorized by: Tricia Marin MD ?? Tricia Marin MD CARDIO TECH [facility] S documented in this encounter Visit Diagnoses Not on filedocumented in this encounter Administered Medications Inactive Administered Medications - up to 3 most recent administrations Medication Order MAR Action Action Date Dose Rate Site dexAMETHasone (Decadron) injection Intravenous, PRN, Starting on Wed09/28/23 at 1432, Until Wed09/28/23 at 1732, Anesthesia Intra-op, Routine Given 09/28/2023 2:32 PM EDT 8 mg dexmedeTOMIDine (Precedex) (4 mcg/mL) bolus injection (Anesthsia) Intravenous, PRN, Starting on Wed09/28/23 at 1444, Until Wed09/28/23 at 1732, Anesthesia Intra-op, Routine Given 09/28/2023 4:58 PM EDT 4 mcg Given 09/28/2023 4:23 PM EDT 4 mcg Given 09/28/2023 3:33 PM EDT 4 mcg fentaNYL (pf) (50 mcg/mL) multi-dose injection Intravenous, PRN, Starting on Wed09/28/23 at 1350, Until Wed09/28/23 at 1732, Anesthesia Intra-op, Routine Given 09/28/2023 1:50 PM EDT 100 mcg HYDROmorphone (Dilaudid) (2 mg/mL) multi-dose injection solution Intravenous, PRN, Starting on Wed09/28/23 at 1439, Until Wed09/28/23 at 1732, Anesthesia Intra-op, Routine Given 09/28/2023 5:12 PM EDT 0.2 mg Given 09/28/2023 4:04 PM EDT 0.2 mg Given 09/28/2023 2:39 PM EDT 0.4 mg lactated ringers infusion 1,000 mL, at 100 mL/hr, Intravenous, CONTINUOUS, Starting on Wed09/28/23 at 1400, Until Wed09/28/23 at 1949, Day of Surgery (Day of Procedure) New Bag 09/28/2023 2:00 PM EDT lactated ringers infusion Intravenous, CONTINUOUS PRN, Starting on Wed09/28/23 at 1339, Until Wed09/28/23 at 1732, Anesthesia Intra-op New Bag 09/28/2023 5:11 PM EDT New Bag 09/28/2023 1:39 PM EDT levoFLOXacin (Levaquin) 750 mg in dextrose 5% 150 mL infusion 750 mg, Intravenous, at 100 mL/hr, Administer over 90 Minutes, ONCE, 1 dose, On Wed09/28/23 at 1315, Infuse over 60 minutes. director selection and administration to OR, Day of Surgery (Day of Procedure), Routine, Restricted Antibiotic: Please indicate the most appropriate choice: Pre-approved indication (state the indication in comments field), Indication for (Active or Suspected): Prophylaxis Given 09/28/2023 2:11 PM EDT 750 mg lidocaine (pf) (Xylocaine) (20 mg/mL) 2% injection syringe Intravenous, PRN, Starting on Wed09/28/23 at 1350, Until Wed09/28/23 at 1732, Anesthesia Intra-op, Routine Given 09/28/2023 1:50 PM EDT 50 mg metroNIDAZOLE (Flagyl) 500 mg in sodium chloride 0.9% 100 mL infusion 500 mg, Intravenous, ONCE, 1 dose, On Wed09/28/23 at 1315, Administer over 30 Minutes, Infuse over 30 minutes. director selection and administration to OR, Day of Surgery (Day of Procedure), Indication for (Active or Suspected): Prophylaxis Given 09/28/2023 2:11 PM EDT 500 mg midazolam (pf) (Versed) (1 mg/mL) multi-dose injection Intravenous, PRN, Starting on Wed09/28/23 at 1339, Until Wed09/28/23 at 1732, Anesthesia Intra-op, Routine Given 09/28/2023 1:44 PM EDT 1 mg Given 09/28/2023 1:39 PM EDT 1 mg ondansetron (pf) (Zofran) (2 mg/mL) injection Intravenous, PRN, Starting on Wed09/28/23 at 1432, Until Wed09/28/23 at 1732, Anesthesia Intra-op, Routine Given 09/28/2023 2:32 PM EDT 4 mg PHENYLephrine (Rebel-Synephrine) (80 mcg/mL) in sodium chloride 0.9% 250 mL infusion Intravenous, CONTINUOUS PRN, Starting on Wed09/28/23 at 1457, Until Wed09/28/23 at 1732, Anesthesia Intra-op, Routine Rate/Dose Change 09/28/2023 3:14 PM EDT 10 mcg/min 7.5 mL/hr New Bag 09/28/2023 2:57 PM EDT 20 mcg/min 15 mL/hr propofoL (Diprivan) (10 mg/mL) infusion Intravenous, CONTINUOUS PRN, Starting on Wed09/28/23 at 1400, Until Wed09/28/23 at 1732, Anesthesia Intra-op, Routine Rate/Dose Change 09/28/2023 4:40 PM EDT 75 mcg/kg/min 28.485 mL/hr New Bag 09/28/2023 2:00 PM EDT 30 mcg/kg/min 11.394 mL/ hr propofoL (Diprivan) 10 mg/mL bolus injection (Anesthesia) Intravenous, PRN, Starting on Wed09/28/23 at 1351, Until Wed09/28/23 at 1732, Anesthesia Intra-op Given 09/28/2023 1:51 PM EDT 200 mg rocuronium (Zemuron) (0.5 mg/mL) in sodium chloride 0.9% 100 mL infusion 5 mcg/kg/min ? 50.9 kg [place] weight (30.54 mL/hr, rounded to 30.5 mL/hr), Intravenous, CONTINUOUS, Starting on Wed09/28/23 at 1445, Until Wed09/28/23 at 1949, Intra-Operative (Intra-Procedure) Rate/Dose Change 09/28/2023 3:31 PM EDT 6 mcg/kg/min 36.648 mL/hr Rate/Dose Change 09/28/2023 3:14 PM EDT 8 mcg/kg/min 48.86 4 mL/hr Rate/Dose Change 09/28/2023 2:44 PM EDT 10 mcg/kg/min 61.0 8 mL/hr rocuronium (Zemuron) (10 mg/mL) multi-dose injection Intravenous, PRN, Starting on Wed09/28/23 at 1352, Until Wed09/28/23 at 1732, Anesthesia Intra-op, Routine Given 09/28/2023 1:52 PM EDT 50 mg ROpivacaine (Naropin) 0.2% (2 mg/mL) bolus Perineural, Starting on Wed09/28/23 at 1350, Until Wed09/28/23 at 1350, Anesthesia Intra-op, Routine Given 09/28/2023 1:50 PM EDT 60 mLs sugammadex (Bridion) 100 mg/mL injection Intravenous, PRN, Starting on Wed09/28/23 at 1713, Until Wed09/28/23 at 1732, Anesthesia Intra-op, Routine Given 09/28/2023 5:13 PM EDT 180 mg documented in this encounter Care Teams Athletic Field Custodian Relationship Specialty Start Date End Date Hina Johnson [address] [place] [address] PCP - General Family Medicine 06/25/23 documented as of this encounter
--- OUTSIDE RECORDS SUMMARY | 2024-01-26 03:08 | XMS_ITS | Encounter Summary ---
Author Organization [facility] Address [facility] [place] [address] Care Team Providers Care Wound Nurse Name Role Phone Hina Johnson Primary Care Provider [phone] [phone] Encounter Details Date Type Department Care Team (Latest Contact Info) Description 09/09/2023 Travel Social History Tobacco Use Types Packs/Day [...] EDT Office Visit Hematology/Oncolog y at [address] [phone] Derek Lindquist MD [facility] [place] [address] Ann Tello APRN [address] [place] [address] [place] [address] 03/24/2024 1:00 PM EDT Hospital Encounter [place] [address] Shilo Lopez MD [facility] [place] [address] 03/24/2024 1:00 PM EDT - 03/24/2024 1:45 PM EDT Surgery [place] [address] Shilo Lopez MD [facility] [place] [address] COLONOSCOPY, DIAGNOSTIC (WRVU 3.26) Scheduled Procedures Name [...] on filedocumented in this encounter Care Teams Wound Nurse Relationship Specialty Start Date End Date Hina Johnson [address] [place] [address] PCP - General Family Medicine 06/25/23 documented as of this encounter
--- OUTSIDE RECORDS SUMMARY | 2024-01-26 03:08 | XMS_ITS | Encounter Summary ---
Author Organization [facility] Address [facility] [place] [address] Care Team Providers Care Life Teacher Name Role Phone CristobalEliza Hina Primary Care Provider Encounter Details Date Type Department Care Team (Latest Contact Info) Description 09/09/2023 1:41 PM EDT - 09/09/2023 3:29 PM EDT Hospital Encounter [place] [address] Primary adenocarcinoma of ascending colon; Adenocarcinoma, appendix; Malignant neoplasm of overlapping sites of colon Discharge Disposition: Home Social History Tobacco [...] 11/07/2021 09/28/2023 documented as of this encounter Progress Notes * Kate Gould RN - 09/09/2023 2:04 PM EDT Patient Name: Blanca Lujan Patient Age: 67 y.o. Birthdate: 1955 Admit date: 09/09/2023 Attending Physician: No att. providers found Access visit. See MAR and/or flowsheet. documented in this encounter Plan of Treatment Upcoming Encounters Date Type Department Care Team (Late st Contact Info) Description 01/28/2024 10:30 AM EDT Office Visit Hematology/Oncolog y at [address] [phone] Derek Lindquist MD [facility] [place] [address] Ann Tello APRN [address] [place] [address] DR HEMATOLOGY [place] [address] 03/24/2024 1:00 PM EDT Hospital [place] [address] Shilo Lopez MD [facility] [address] 03/24/2024 1:00 PM EDT - 03/24/2024 1:45 PM EDT [place] [phone] Shilo Lopez MD [facility] [place] [address] COLONOSCOPY, DIAGNOSTIC (WRVU 3.26) Scheduled Procedures Name [...] Priority Date/Time Associated Diagnosis Comments HEMOGRAM Routine 09/09/2023 2:00 PM EDT Primary adenocarcinoma of ascending colon DIFFERENTIAL, AUTOMATED Routine 09/09/2023 2:00 PM EDT Primary adenocarcinoma of ascending colon CBC (WITH DIFF) Routine 09/09/2023 2:00 PM EDT Primary adenocarcinoma of ascending colon CEA Routine 09/09/2023 2:00 PM EDT Primary adenocarcinoma of ascending colon COMPREHENSIVE METABOLIC PANEL Routine 09/09/2023 2:00 PM EDT Primary adenocarcinoma of ascending colon documented in this encounter Results * (ABNORMAL) Differential, Automated (09/09/2023 2:00 PM EDT) Neutrophil % 64.4 % [facility] Neutrophil Absolute 6.49(H) 1.70 - 6.10 x10(3)/[facility] Lymph % 24.6 % [facility] Lymphocytes Abs 2.5 0.9 - 3.2 x10(3)/[facility] Monocyte % 8.3 % [facility] Monocyte Abs 0.8 0.3 - 0.9 x10(3)/[facility] Eos % 1.3 % [facility] Eosinophils Abs 0.1 0.0 - 0.4 x10(3)/[facility] Basophil % 0.7 % [facility] Baso Absolute 0.1 0.0 - 0.1 x10(3)/[facility] Immature Gran % 0.70 % [facility] Comment: Immature granulocytes(IG's)percentage and absolute count will include metamyelocytes, myelocytes, and promyelocytes. Blood smears from CBCs yielding IG's will be scanned manually for concordance. If this scan disagrees with the automated IG or if promyelocytes are noted, a manual differential will be performed. Immature Gran Absolute 0.07(H) 0.00 - 0.04 x10(3)/[facility] Blood 09/09/2023 2:00 PM EDT 09/09/2023 2:18 PM EDT Narrative Resulting Agency Comment Spec In Lab Derek Lindquist MD HEMATOLOGY ORDERABLE S [facility] [place] [address] * (ABNORMAL) Hemogram (09/09/2023 2:00 PM EDT) White Blood Cell 10.1(H) 4.0 - 9.5 x10(3)/[facility] Red Blood Cell 4.29 4.00 - 5.21 x10(6)/mc L [facility] Hemoglobin 13.8 11.7 - 15.5 g/dL [facility] Hematocrit 39.0 35.7 - 45.8 % [facility] Mean Cell Volume 90.9 82.6 - 94.4 fL [facility] Mean Cell Hemoglobin 32.2(H) 27.1 - 32.0 pg [facility] Mean Cell Hemoglobin Concentration 35.4(H) 31.7 - 35.0 g/dL [facility] Platelet 193 145 - 357 x10(3)/mc L [facility] RDW Standard Deviation 44.2 37.0 - 46.0 fL [facility] RDW coefficient of variation 13.2 11.5 - 14.1 % [facility] Mean Platelet Volume 10.0 7.6 - 12.9 fL [facility] NRBC% auto 0.0 % [facility] NRBC Absolute 0.000 0.000 - 0.000 x10(3)/mc L [facility] Blood 09/09/2023 2:00 PM EDT 09/09/2023 2:18 PM EDT Narrative Resulting Agency Comment Spec In Lab Derek Lindquist MD HEMATOLOGY ORDERABLE S [facility] [place] [address] * CEA (09/09/2023 2:00 PM EDT) Carcinoembryonic Antigen 2.9 <=3.8 ng/mL [facility] Comment: Reference range: ??(20-69 years): [...] In Lab Derek Lindquist MD CHEMISTRY ORDERABLES [facility] [place] [address] * (ABNORMAL) Comprehensive metabolic panel (non-fasting) (09/09/2023 2:00 PM EDT) Glucose 132 65 - 199 mg/dL [facility] Comment:Diabetes: >=200 mg/d L plus symptoms Blood Urea Nitrogen 18 8 - 18 mg/dL [facility] Creatinine 0.64(L) 0.70 - 1.20 mg/dL [facility] Sodium 140 135 - 145 mmol/L [facility] Potassium 3.9 3.5 - 5.0 mmol/L [facility] Comment: Please note: ??Patients with WBC >100,000 may have falsely elevated Potassium levels. ??For accurate Potassium quantification in these patients send serum separator tube (gold top) for subsequent determinations. ??Contact the Clinical Chemistry Laboratory if there are any questions. Chloride 104 98 - 107 mmol/L [facility] Carbon Dioxide 26 22 - 31 mmol/L [facility] Anion Gap 10 5 - 15 mmol/L [facility] Calcium 9.5 8.5 - 10.5 mg/dL [facility] Protein, Total 7.0 6.1 - 8.0 g/dL [facility] Albumin 4.4 3.2 - 5.2 g/dL [facility] Aspartate Aminotransferase 21 0 - 30 unit/L [facility] Alanine Aminotransferase 26 0 - 30 unit/L [facility] Alkaline Phosphatase 85 35 - 105 unit/L [facility] Bilirubin, Total <0.2(L) 0.2 - 1.3 mg/dL [facility] Est Glomerular Filtration Rate 98 >=60 mL/min/1. 73 m?? [facility] Comment: This patient's estimated [...] In Lab Derek Lindquist MD CHEMISTRY ORDERABLES [facility] [place] [address] documented in this encounter Visit Diagnoses Diagnosis Primary adenocarcinoma of ascending colon Adenocarcinoma, appendix Malignant neoplasm of appendix vermiformis Malignant neoplasm of overlapping sites of colon Malignant neoplasm of other specified sites of large intestine documented in this encounter Care Teams Life Teacher Relationship Specialty Start Date End Date Hina Johnson [address] [place] [address] PCP - General Family Medicine 06/25/23 documented as of this encounter
--- OUTSIDE RECORDS SUMMARY | 2024-01-26 03:09 | XMS_ITS | Encounter Summary ---
Author Organization [facility] Address [facility] [place] [address] Care Team Providers Care Straight Ruling Machine Operator Name Role Phone Shruthi Arrington MD Primary Care Provider [phone] Reason for Visit * Reason Comments Chemotherapy Folfox # 2 * Treatment/Therapy Plan Authorization (Routine) - Pending Review Specialty Diagnoses / Procedures Referred By Contac t Referred To Contact Hematology and Oncology Diagnoses Adenocarcinoma, appendix Procedures TC PALONOSETRON HCL, 25MCG, INJECTION (ALOXI) TC OXALIPLATIN, 0.5MG, INJECTION (ELOXATIN) TC LEUCOVORIN CALCIUM, 50MG, INJECTION (WELLCOVORIN) TC FLOUROURACIL, 500MG FOLFOX J2469 ALOXI J0640 LEUCOVORIN J9263 OXALIPLATIN J9190 ADRUCIL Derek Lindquist MD [address] [place] [address] [place] [address] Derek Lindquist MD [address] [place] [address] [place] [address] Referral ID Status Reason Start Date Expiration Date V isits Requested Visits Authorized [id number] Pending Review 04/07/2023 04/06/2024 1 101 Encounter Details Date Type Department Care Team (Late st Contact Info) Description 04/30/2023 11:00 AM EST Infusion Hematology Oncology at [address] [phone] Adenocarcinoma, appendix Social History Tobacco Use Types [...] as of this encounter Progress Notes * Altagracia Maldonado RN - 04/30/2023 11:00 AM EST INFUSION THERAPY ADMINISTRATION NOTES TIME TREATMENT STARTED: 1110 TIME TREATMENT ENDED: 151 DIAGNOSIS: cancer if appendix PROTOCOL:na CYCLE #: 2 REASON FOR VISIT: folfox SUBJECTIVE Blanca Lujan states had mouth sores last tx. [facility] OBJECTIVE LAB DATA: Labs reviewed and found adequate for treatment. Pre administration: Chemotherapy orders independently verified for drug name, route, and dosage per patient's height, weight and BSA by Ilia Maldonado RN and Ilia Collado pharmacist. HOME INFUSION - Connect Fluorouracil (5-FU) DOSE: 4680 mg over 46 hours RATE: 3mL/hr ROUTE: IV Port START TIME: 1433 Chemotherapy safety checks performed per protocol with mayra Blue RN. Drug amount infused verified by Mayra Blue RN double check after approximated 15 minutes and that 0.8 mL had infused. Anticipated date/time of disconnect: 05/02/23 1245pm Plan for disconnect: at [facility] Disconnect contact number: [phone] ask for second floor nurses station REACTIONS (DESCRIPTION, TIME, INTERVENTION AND EFFECTIVENESS) none ASSESSMENT Blanca Lujan was awake, alert and he tolerated treatment well. PLAN Return to clinic per routine. documented in this encounter Plan of Treatment Upcoming Encounters Date Type Department Care Team (Late st Contact Info) Description 01/28/2024 10:30 AM EDT Office Visit Hematology/Oncolog y at [address] [phone] Derek Lindquist MD [facility] [place] [address] Ann Tello APRN [address] [place] [address] DR HEMATOLOGY AND ONCOLOGY [place], [place] [address] 03/24/2024 1:00 PM EDT Hospital Encounter [place] [phone] Shilo Lopez MD [facility] [place] [address] 03/24/2024 1:00 PM EDT - 03/24/2024 1:45 PM EDT Surgery [place] [phone] Shilo Lopez MD [facility] [place] [address] COLONOSCOPY, DIAGNOSTIC (WRVU 3.26) Scheduled Procedures Name [...] 10 mg, Oral, ONCE, 1 dose, On Wed04/30/23 at 1145, Administer prior to chemotherapy, Routine Given 04/30/2023 11:36 AM EST 10 mg fluorouraciL (ADRUCIL) chemo injection 780 mg 780 mg (400 mg/m2/dose ? 1.95 m2 Treatment Plan BSA from Recorded weight), Intravenous, ONCE, 1 dose, On Wed04/30/23 at 1245, Administer over 5 Minutes, Warning Vesicant/Irritant Medication Given 04/30/2023 2:26 PM EST 780 mg 187.2 mL/hr fluorouraciL (AdruciL) in sodium chloride 0.9% 138 mL infusion (46 Hour - For Home Use) 4,680 mg 4,680 mg (2,400 mg/m2/dose ? 1.95 m2 Treatment Plan BSA from Recorded weight), Intravenous, ONCE, 1 dose, On Wed04/30/23 at 1415, Administer over 46 Hours, Warning Vesicant/Irritant Medication To be infused via an ambulatory infusion CADD Sanchez pump continuously IV at 3 mL/hr for 46 hours. Pump contains a 46 hour supply and provides a daily dose of 1,200 mg/m2/day = 2,400 mg/m2 IV over 46 hours. Given 04/30/2023 2:33 PM EST 4,680 mg 3 mL/hr leucovorin (Wellcovorin) 350 mg in dextrose 5% 85 mL infusion 350 mg, Intravenous, ONCE, 1 dose, On Wed04/30/23 at 1245, Administer over 85 Minutes, May Y-site with OXALIplatin Do not administer at a rate faster than 160 milligrams/minute. New Bag 04/30/2023 12:44 PM EST 350 mg 60 mL/hr OXALIplatin (Eloxatin) 150 mg in dextrose 5% 280 mL infusion 150 mg, Intravenous, ONCE, 1 dose, On Wed04/30/23 at 1245, Administer over 85 Minutes, Compatible with dextrose-containing solution only. Warning Vesicant/Irritant Medication New Bag 04/30/2023 12:47 PM EST 150 mg 197.6 mL/hr palonosetron (Aloxi) (0.05 mg/mL) injection 0.25 mg 0.25 mg, Intravenous, ONCE, 1 dose, On Wed04/30/23 at 1145, Administer over 30 seconds. Administer prior to chemotherapy, Routine Given 04/30/2023 11:37 AM EST 0.25 mg documented in this encounter Care Teams Straight Ruling Machine Operator Relationship Specialty Start Date End Date Shruthi Arrington MD [address] [place] [address] PCP - General 05/06/10 06/24/23 documented as of this encounter
--- OUTSIDE RECORDS SUMMARY | 2024-01-26 03:09 | XMS_ITS | Encounter Summary ---
Author Organization [facility] Address [facility] [place] [address] Care Team Providers Care Airport Skilled Maintenance Supervisor Name Role Phone Hina Johnson Primary Care Provider [phone] Encounter Details Date Type Department Care Team (Latest Contact Info) Description 07/09/2023 Travel Social History Tobacco Use Types Packs/Day [...] EDT Office Visit Hematology/Oncolog y at [address] [phone] Derek Lindquist MD [facility] [place] [address] Ann Tello APRN [address] [place] [address] DR [place] [address] 03/24/2024 1:00 PM EDT Hospital En[place] [address] Shilo Lopez MD [facility] [place] [address] 03/24/2024 1:00 PM EDT - 03/24/2024 1:45 PM EDT [place] [address] Shilo Lopez MD [facility] [place] [address] COLONOSCOPY, DIAGNOSTIC (WRVU 3.26) Scheduled Procedures Name [...] on filedocumented in this encounter Care Teams Airport Skilled Maintenance Supervisor Relationship Specialty Start Date End Date Hina Johnson [address] [place] [address] PCP - General Family Medicine 06/25/23 documented as of this encounter
--- OUTSIDE RECORDS SUMMARY | 2024-01-26 03:09 | XMS_ITS | Encounter Summary ---
Author Organization [facility] Address [facility] [place] [address] Care Team Providers Care Information Systems Security Officer Name Role Phone Shruthi Arrington MD Primary Care Provider [phone] Encounter Details Date Type Department Care Team (Latest Contact Info) Description 05/28/2023 Travel Social History Tobacco Use Types Packs/Day [...] AM EDT Office Visit Hematology/Oncolog y at [address] [phone] Derek Lindquist MD [facility] [place] [address] Ann Tello APRN [address] [place] [address] [place] [address] 03/24/2024 1:00 PM EDT Hospital Encounter [place] [address] Shilo Lopez MD [facility] [place] [address] 03/24/2024 1:00 PM EDT - 03/24/2024 1:45 PM EDT [place] [address] Shilo Lopez MD [facility] [place] [address] COLONOSCOPY, DIAGNOSTIC (WRVU 3.26) Scheduled Procedures Name [...] on filedocumented in this encounter Care Teams Information Systems Security Officer Relationship Specialty Start Date End Date Shruthi Arrington MD [address] [place] [address] PCP - General 05/06/10 06/24/23 documented as of this encounter
--- OUTSIDE RECORDS SUMMARY | 2024-01-26 03:09 | XMS_ITS | Encounter Summary ---
Author Organization [facility] [place] [address] Care Team Providers Care Chimney Builder Brick Name Role Phone Shruthi Arrington MD Primary Care Provider [phone] Encounter Details Date Type Department Care Team (Late Contact Info) Description 04/16/2023 Orders Only [place]ology [place] [address] Derek Lindquist MD [facility] [place] [address] Social History Tobacco Use Types Packs/Day Years [...] Encounters Date Type Department Care Team (Late Contact Info) Description 01/28/2024 10:30 AM EDT Office Visit Hematology/Oncolog y at [address] [phone] Derek Lindquist MD [facility] [place] [address] Ann Tello APRN [address] [place] [address] DR HEMATOLOGY [place] [address] 03/24/2024 1:00 PM EDT Hospital En[place] [address] Shilo Lopez MD [facility] [place] [address] 03/24/2024 1:00 PM EDT - 03/24/2024 1:45 PM EDT [place] [address] Shilo Lopez MD [facility] [place] [address] COLONOSCOPY, DIAGNOSTIC (WRVU 3.26) Scheduled Procedures Name [...] on filedocumented in this encounter Care Teams Chimney Builder Brick Relationship Specialty Start Date End Date Shruthi Arrington MD [address] [place] [address] PCP - General 05/06/10 06/24/23 documented as of this encounter
--- OUTSIDE RECORDS SUMMARY | 2024-01-26 03:09 | XMS_ITS | Encounter Summary ---
Author Organization [facility] Address [facility] [place] [address] Care Team Providers Care Ladies Locker Room Attendant Name Role Phone SharicathydahliaEliza Hina Primary Care Provider [phone] Reason for Visit * Reason Onset Date Comments Questions 06/29/2023 Encounter Details Date Type Department Care Team (Late st Contact Info) Description 06/29/2023 Telephone Hematology/Oncology at [address] [phone] Cherie Boyd, RN Questions Social History Tobacco Use Types Packs/Day Years [...] encounter Miscellaneous Notes * Telephone Encounter - Cherie Boyd, RN - 06/29/2023 11:21 AM EST Called and spoke with Blanca Lujan. We discussed CEA down to 2.8 on 06/25 when she had 5th cyclefolfox for her appendix cancer. She reports today she had a sharp pain in right side this morning which resolved but now the lump in her right side is twice as large. She denies any other symptoms, just overall feeling poorly from chemotherapy. She is wondering if Dr Lindquist could see her tomorrow when she is down in seeing genetics. Will check with provider and let pt know. ----- Message from Shahrzad Rivera sent at 06/29/2023 10:22 AM EST ----- Blanca called in looking for her lab results, she mentioned that they were not in her Chart on Wednesday while she was here, I have printed them out but not able to add to on base as the fax is down Best call back number [phone] documented in this encounter Plan of Treatment Upcoming Encounters Date Type Department Care Team (Late st Contact Info) Description 01/28/2024 10:30 AM EDT Office Visit Hematology/Oncolog y at [address] [phone] Derek Lindquist MD [facility] [address] Ann Tello APRN [address] [place] [address] DR HEMATOLOGY [place] [address] 03/24/2024 1:00 PM EDT Hospital Encounter G[place] [phone] Shilo Lopez MD [facility] [place] [place] [address] 03/24/2024 1:00 PM EDT - 03/24/2024 1:45 PM EDT Surgery [place] [phone] [address]ilo Lopez MD [facility] [place] [address] COLONOSCOPY, DIAGNOSTIC (WRVU 3.26) Scheduled Procedures Name Priority Associated Diagnoses Date/Ti nd COLONOSCOPY, DIAGNOSTIC (WRVU 3.26) Procedure: Colonoscopy Indication: Malignant neoplasm of colon, unspecified part of colon and History of partial colectomy Sedation: IVCS Timeframe: within 2 weeks Specific provider: first available OV needed: No Anticoagulation status: no documented anticoagulation use 03/24/2024 1:00 PM EDT documented as of this encounter Visit Diagnoses Not on filedocumented in this encounter Care Teams Ladies Locker Room Attendant Relationship Specialty Start Date End Date Hina Johnson [address] [place] [address] PCP - General Family Medicine 06/25/23 documented as of this encounter
--- OUTSIDE RECORDS SUMMARY | 2024-01-26 03:09 | XMS_ITS | Encounter Summary ---
Author Organization Formerly [facility] Address [facility] [place] [address] Care Team Providers Care Portable Sawmill Operator Name Role Phone CristobalElizaHina Primary Care Provider Encounter Details Date Type Department Care Team (Late st Contact Info) Description 07/09/2023 10:30 AM EST Office Visit Hematology/Oncology at [address] [phone] Derek Lindquist MD [facility] [place] [address] Ann Tello APRN [address] [place] [address] DR HEMATOLOGY [place] [address] Overlapping malignant neoplasm of colon Social History Tobacco Use Types [...] Sign Reading Time Taken Comments Blood Pressure 151/85 07/09/2023 10:20 AM EST Pulse 90 07/09/2023 10:20 AM EST Temperature 36.2 ??C (97.1 ??F) 07/09/2023 10:[address] Respiratory Rate 18 07/09/2023 10:20 AM EST Oxygen Saturation 97% 07/09/2023 10:20 AM EST Inhaled Oxygen Concentration - - Weight 87.3 kg (192 lb 6.4 oz) 07/09/2023 10:20 AM EST Height 158.4 cm (5' 2.36) 07/09/2023 10:[address] Body Mass Index 34.78 07/09/2023 10:20 AM EST documented in this encounter Progress Notes * Ann Tello, PROJECT MANAGER RETAIL - 07/09/2023 10:30 AM EST Subjective Patient ID: Blanca Lujan is [...] evidence of acute diverticulitis 5. Fib[place] [place] - IMPRESSION 1. Unexpected findings [...] Began therapy with Folfox on 04/16/23, s/p [address] c/a/p 06/04/23 (after 4 [...] continued attention to this on follow-up studies. 2. Anxiety and depression 3. PTSD 4. ADHD 5. ZARA 6. 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 The history is summarized above. Blanca is accompanied to clinic today by her daughter Kera. She is feeling pretty well. She is noticing that the side effects of the chemotherapy are lasting longer. She feels gaggy. She says that prochlorperazine and zofran are note effective. She takes a tea which helps. She pushes herself to eat and has gained a few pounds. She also finds that cecy chews are helpful. The fatigue is lastinglonger. 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 It is bad for the first few days and getting worse with each cycle. It does improve. She says if she held something cold today she would notice it. No mouth sores. When she blows her nose, she notices some dried blood. She also notices thather nose runs quite a bit and there is some tearing of her eyes in the AM. No diarrhea. She is leaving for [place] tomorrow and looking forward to being therapy for two weeks. She is having hair thinning. Soc Hx:Lives in [place], [place] Tob - Quit in 2010 Etoh [...] with her PCP. Review of Systems Constitutional: Negative. HENT: Negative. Respiratory: Negative. Cardiovascular: Negative. Gastrointestinal: Negative. Genitourinary: Negative. Musculoskeletal: Negative. Skin: Negative. Neurological: Negative. Psychiatric/Behavioral: Negative. Objective Physical [...] and oriented to person, place, and time. Coordination: Coordination normal. Psychiatric: Mood and Affect: Mood normal. ECOG PS - 1 BP 151/85 (Patient Position: Sitting) Pulse 90 Temp 36.2 ??C (97.1 ??F) (Temporal) Resp 18 Ht 158.4 cm (5' 2.36) Wt 87.3 kg (192 lb 6.4 oz) SpO2 97% BMI 34.78 kg/m?? Labs: WBC/ANC - 6.65/3.77, Hgb/Hct - 13.1/39.4, Plts - 242,000. BUN/Cr - 21/0.7. Glucose - 126. Remainder of CMP otherwise unremarkable. CEA 2.9 06/11/23 5.7 05/27/23 4.5 05/13/23 6.2 04/29/23 [...] - 7 Dr. Lindquist spoke with Dr. aGrcia on 04/07/23. She discussed the case with [...] began therapy with Folfox and has received 5 cycles. She has tolerated therapy pretty well. The main issues seem to be lack of appetite, fatigue and cold sensitivity. We have talked about adding avastin and her preference is not to add anything else at this time. A restaging CT scan was done on 06/04/23. This is read as showing a stable appearance of the cecal thickening and associated dilated appendix, which appears tethered to the anterior right lower quadrant abdominal wall; resolved mesenteric lymphadenopathy; and decreased size of mass/fluid collectionextending along the distal right iliopsoas muscle. She is anxious to consider resection. Dr. Lindquistcommunicated with Dr. Garcia. Our plan at this time is for 4 more cycles followed by restaging and re-evaluation for surgery. Her labs are adequate today and we will proceed with C6, asking her to return in 2 weeks as a standalone for C7, then back to clinic two weeks after that for consideration of C8. documented in this encounter Plan of Treatment Upcoming Encounters Date Type Department Care Team (Late st Contact Info) Description 01/28/2024 10:30 AM EDT Office Visit Hematology/Oncolog y at [address] [phone] Derek Lindquist MD [facility] [place] [address] Ann Tello APRN [address] [place] [address] DR HEMATOLOGY [place] [address] 03/24/2024 1:00 PM EDT Hospital Encounter [place] [phone] Shilo Lopez MD [facility] [place] [address] 03/24/2024 1:00 PM EDT - 03/24/2024 1:45 PM EDT [place] [phone] Shilo Lopez MD [facility] [place] [address] COLONOSCOPY, DIAGNOSTIC (WRVU 3.26) Scheduled Procedures Name Priority Associated Diagnoses Date/Ti me COLONOSCOPY, DIAGNOSTIC (WRVU 3.26) Procedure: Colonoscopy Indication: Malignant neoplasm of colon, unspecified part of colon and History of partial colectomy Sedation: IVCS Timeframe: within 2 weeks Specific provider: first available OV needed: No Anticoagulation status: no documented anticoagulation use 03/24/2024 1:00 PM EDT documented as of this encounter Visit Diagnoses Diagnosis Overlapping malignant neoplasm of colon documented in this encounter Care Teams Portable Sawmill Operator Relationship Specialty Start Date End Date Hina Johnson [address] [place] [address] PCP - General Family Medicine 06/25/23 documented as of this encounter
--- OUTSIDE RECORDS SUMMARY | 2024-01-26 03:09 | XMS_ITS | Encounter Summary ---
Author Organization [facility] Address [facility] [place] [address] Care Team Providers Care Cork Cutter Name Role Phone Shruthi Arrington MD Primary Care Provider [phone] Encounter Details Date Type Department Care Team (Latest Contact Info) Description 04/14/2023 Travel Social History Tobacco Use Types Packs/Day [...] AM EDT Office Visit Hematology/Oncolog y at [address] [phone] Derek Lindquist MD [facility] [place] [address] Ann Tello APRN [address] [place] [address] DR [place] [address] 03/24/2024 1:00 PM EDT Hospital Encounter [place] [address] Shilo Lopez MD [facility] [place] [address] 03/24/2024 1:00 PM EDT - 03/24/2024 1:45 PM EDT Surgery [place] [address] Shilo Lopez MD [facility] [place] [address] COLONOSCOPY, DIAGNOSTIC (WRVU 3.26) Scheduled Procedures Name [...] on filedocumented in this encounter Care Teams Cork Cutter Relationship Specialty Start Date End Date Shruhti Arrington MD [address] [place] [id number] PCP - General 05/06/10 06/24/23 documented as of this encounter
--- OUTSIDE RECORDS SUMMARY | 2024-01-26 03:09 | XMS_ITS | Encounter Summary ---
Author Organization [facility] Address [facility] [place] [address] Care Team Providers Care Metal Tank Erector Name Role Phone Shruthi Arrington MD Primary Care Provider [phone] Reason for Visit * Reason Comments Chemotherapy C4 FOLFOX * Treatment/Therapy Plan Authorization (Routine) - Pending Review Specialty Diagnoses / Procedures Referred By Contac t Referred To Contact Hematology and Oncology Diagnoses Adenocarcinoma, appendix Procedures TC PALONOSETRON HCL, 25MCG, INJECTION (ALOXI) TC OXALIPLATIN, 0.5MG, INJECTION (ELOXATIN) TC LEUCOVORIN CALCIUM, 50MG, INJECTION (WELLCOVORIN) TC FLOUROURACIL, 500MG FOLFOX J2469 ALOXI J0640 LEUCOVORIN J9263 OXALIPLATIN J9190 BOOUCDerek Ty MD [address] [place] [address] [place] [address] Derek Lindquist MD [address] [place] [address] [place] [address] Referral ID Status Reason Start Date Expiration Date V isits Requested Visits Authorized [id number] Pending Review 04/07/2023 04/06/2024 1 101 Encounter Details Date Type Department Care Team (Late st Contact Info) Description 05/28/2023 11:00 AM EST Infusion Hematology Oncology at [address] [phone] Adenocarcinoma, appendix Social History Tobacco Use Types [...] Progress Notes * Fariba Olivares RN - 05/28/2023 11:00 AM EST INFUSION THERAPY ADMINISTRATION NOTES DIAGNOSIS: cancer of appendix PROTOCOL:na CYCLE #: 4 REASON FOR VISIT: folfox SUBJECTIVE Blanca Lujan has no complaints. OBJECTIVE LAB DATA: Labs reviewed and found adequate for treatment. Pre administration: Chemotherapy orders independently verified for drug name, route, and dosage per patient's height, weight and BSA by Fariba Olivares, MANOHAR and staff pharmacists. HOME INFUSION - Connect Chemotherapy safety checks performed per protocol. Drug amount infused verified by double RN check after approximated 15 minutes and that adequate mLshad infused. Anticipated date/time of disconnect: 05/30/23 Plan for disconnect: home disconnect at 1215, kit provided REACTIONS (DESCRIPTION, TIME, INTERVENTION AND EFFECTIVENESS) none ASSESSMENT Blanca Lujan was awake, alert and he tolerated treatment well. PLAN Return to clinic per routine. documented in this encounter Plan of Treatment Upcoming Encounters Date Type Department Care Team (Late st Contact Info) Description 01/28/2024 10:30 AM EDT Office Visit Hematology/Oncolog y at [address] [phone] Derek Lindquist MD [facility] [place] [address] Ann Tello APRN [address] [place] [address] DR HEMATOLOGY [place] [address] 03/24/2024 1:00 PM EDT Hospital Encounter [place] [address] Shilo Lopez MD [facility] [place] [address] 03/24/2024 1:00 PM EDT - 03/24/2024 1:45 PM EDT [place] [address] Shilo Lopez MD [facility] [place] [address] COLONOSCOPY, DIAGNOSTIC (WRVU 3.26) Scheduled Procedures Name [...] 10 mg, Oral, ONCE, 1 dose, On Wed05/28/23 at 1145, Administer prior to chemotherapy, Routine Given 05/28/2023 11:34 AM EST 10 mg fluorouraciL (ADRUCIL) chemo injection 780 mg 780 mg (400 mg/m2/dose ? 1.95 m2 Treatment Plan BSA from Recorded weight), Intravenous, ONCE, 1 dose, On Wed05/28/23 at 1200, Administer over 5 Minutes, Warning Vesicant/Irritant Medication Given 05/28/2023 2:02 PM EST 780 mg 187.2 mL/hr fluorouraciL (AdruciL) in sodium chloride 0.9% 138 mL infusion (46 Hour - For Home Use) 4,680 mg 4,680 mg (2,400 mg/m2/dose ? 1.95 m2 Treatment Plan BSA from Recorded weight), Intravenous, ONCE, 1 dose, On Wed05/28/23 at 1330, Administer over 46 Hours, Warning Vesicant/Irritant Medication To be infused via an ambulatory infusion CADD Sanchez pump continuously IV at 3 mL/hr for 46 hours. Pump contains a 46 hour supply and provides a daily dose of 1,200 mg/m2/day = 2,400 mg/m2 IV over 46 hours. Given 05/28/2023 2:10 PM EST 4,680 mg 3 mL/hr leucovorin (Wellcovorin) 350 mg in dextrose 5% 85 mL infusion 350 mg, Intravenous, ONCE, 1 dose, On Wed05/28/23 at 1200, Administer over 85 Minutes, May Y-site with OXALIplatin Do not administer at a rate faster than 160 milligrams/minute. New Bag 05/28/2023 12:24 PM EST 350 mg 60 mL/hr OXALIplatin (Eloxatin) 150 mg in dextrose 5% 280 mL infusion 150 mg, Intravenous, ONCE, 1 dose, On Wed05/28/23 at 1200, Administer over 85 Minutes, Compatible with dextrose-containing solution only. Warning Vesicant/Irritant Medication New Bag 05/28/2023 12:24 PM EST 150 mg 197.6 mL/hr palonosetron (Aloxi) (0.05 mg/mL) injection 0.25 mg 0.25 mg, Intravenous, ONCE, 1 dose, On Wed05/28/23 at 1145, Administer over 30 seconds. Administer prior to chemotherapy, Routine Given 05/28/2023 11:38 AM EST 0.25 mg documented in this encounter Care Teams Metal Tank Erector Relationship Specialty Start Date End Date Shruthi Arrington MD [address] [place] [address] PCP - General 05/06/10 06/24/23 documented as of this encounter
--- OUTSIDE RECORDS SUMMARY | 2024-01-26 03:09 | XMS_ITS | Encounter Summary ---
Author Organization [facility] Address [facility] [place] [address] Care Team Providers Care Brick Machine Operator Name Role Phone Shruthi Arrington MD Primary Care Provider [phone] Encounter Details Date Type Department Care Team (Latest Contact Info) Description 05/14/2023 Travel Social History Tobacco Use Types Packs/Day [...] AM EDT Office Visit Hematology/Oncolog y at [address] [phone] Derek Lidnquist MD [facility] [place] [address] Ann Tello APRN [address] [place] [address] [place] [address] 03/24/2024 1:00 PM EDT Hospital En[place] [address] Shilo Lopez MD [facility] [place] [address] 03/24/2024 1:00 PM EDT - 03/24/2024 1:45 PM EDT [place] [address] Shilo Lopez MD [facility] [place] [address] COLONOSCOPY, DIAGNOSTIC (WRVU 3.26) Scheduled Procedures Name [...] on filedocumented in this encounter Care Teams Brick Machine Operator Relationship Specialty Start Date End Date Shruthi Arrington MD [address] [place] [id number] PCP - General 05/06/10 06/24/23 documented as of this encounter
--- OUTSIDE RECORDS SUMMARY | 2024-01-26 03:09 | XMS_ITS | Encounter Summary ---
Author Organization [facility] Address [facility] [place] [address] Care Team Providers Care Chopper Gun Operator Name Role Phone Hina Johnson Primary Care Provider [phone] Encounter Details Date Type Department Care Team (Latest Contact Info) Description 07/23/2023 Travel Social History Tobacco Use Types Packs/Day [...] AM EDT Office Visit Hematology/Oncolog y at [address] [phone] Derek Lindquist MD [facility] [place] [address] Ann Tello APRN [address] [place] [address] DR [place] [address] 03/24/2024 1:00 PM EDT Hospital Encounter [place] [address] Shilo Lopez MD [facility] [place] [address] 03/24/2024 1:00 PM EDT - 03/24/2024 1:45 PM EDT Surgery [place] [address] Shilo Lopez MD [facility] [place] [address] COLONOSCOPY, DIAGNOSTIC (WRVU 3.26) Scheduled Procedures Name [...] on filedocumented in this encounter Care Teams Chopper Gun Operator Relationship Specialty Start Date End Date Hina Johnson [address] [place] [address] PCP - General Family Medicine 06/25/23 documented as of this encounter
--- OUTSIDE RECORDS SUMMARY | 2024-01-26 03:09 | XMS_ITS | Encounter Summary ---
[facility] [place] [address] Care Team Providers Care Security Compliance Specialist Name Role Phone Shruthi Arrington MD Primary Care Provider [phone] Reason for Referral * Diagnostic Test (Routine) - Closed Specialty Diagnoses / Procedures Referred By [facility] Referred To Contact Radiology Diagnoses Malignant neoplasm of ascending colon Procedures CT Chest Abdomen Pelvis w Contrast (Generic) Derek Lindquist MD [facility] [place] [address] [facility] [place] [address] Referral ID Status Reason Start Date Expiration Date V isits Requested Visits Authorized [id number] Closed Specialty Service Requested 05/14/2023 11/12/2024 1 1 Encounter Details Date Type Department Care Team (Late st Contact Info) Description 05/14/2023 10:30 AM EST Office Visit Hematology/Oncology at [address] [phone] Derek Lindquist MD [facility] [place] [address] Ann Tello APRN [address] [place] [address] DR HEMATOLOGY AND ONCOLOGY [place], [place] [address] Malignant neoplasm of ascending colon Social History Tobacco Use [...] Sign Reading Time Taken Comments Blood Pressure 166/85 05/14/2023 10:38 AM EST Pulse 108 05/14/2023 10:38 AM EST Temperature 35.9 ??C (96.7 ??F) 05/14/2023 10:[address] Respiratory Rate 18 05/14/2023 10:38 AM EST Oxygen Saturation 98% 05/14/2023 10:38 AM EST Inhaled Oxygen Concentration - - Weight 87.1 kg (192 lb) 05/14/2023 10:38 AM EST Height 158.4 cm (5' 2.36) 05/14/2023 10:[address] Body Mass Index 34.71 05/14/2023 10:38 AM EST documented in this encounter Progress Notes * Derek Lindquist MD - 05/14/2023 10:30 AM EST Subjective Patient ID: Blanca [...] evidence of acute diverticulitis 5. Fibroid uterus [place] [place] - IMPRESSION 1. Unexpected findings [...] Began therapy with Folfox on 04/16/23, s/p 2 cycles 2. Anxiety and depression 3. PTSD 4. ADHD 5. ZARA 6. 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 The history is summarized above. Blanca is accompanied to clinic today by her daughter Kera. She is feeling fairly well and tolerating treatment well. She has increased energy and sleeplessness the night of the chemotherapy. She hascold sensitivity after treatment but is careful to avoid cold exposure. It did last longer with cycle 2 than with cycle 1. Her appetite is lower but she pushes herself to eat and her weight is stable. No diarrhea but says she has a lot of gas on days 3-4. She has moved in with Kera and they both feel this has been a good situation for her. No fevers or chills. Soc Hx:Lives in [place], [place] Tob - Quit in 2010 Etoh - [...] ECOG PS - 1 Labs: WBC/ANC - 7., Hgb/Hct - 13.9/39.5, Plts - 219,000. BUN/Cr - 19/0.9. Glucose - 142. Lytes and LFTs CEA 05/13/23 6.2 04/29/23 8.3 04/14/23 14.2 04/07/23 [...] began therapy with Folfox and has received 2 cycles. She is tolerating therapy pretty well at this point. The main issues seem to be lack of appetite, fatigue and cold sensitivity. We have talked about adding avastin and her preference is not to add anything else at this time. The labs are adequate and we will proceed with cycle 3 of therapy today. We will plan a restaging CT scan after cycle 4. documented in this encounter Plan of Treatment Upcoming Encounters Date Type Department Care Team (Late st Contact Info) Description 01/28/2024 10:30 AM EDT Office Visit Hematology/Oncolog y at [address] [phone] Derek Lindquist MD [facility] [place] [address] Ann Tello APRN [address] [place] [address] DR [place]EM[place]OLOGY [place] [address] 03/24/2024 1:00 PM EDT Hospital Encounter [place] [phone] Shilo Lopez MD [facility] [place] [address] 03/24/2024 1:00 PM EDT - 03/24/2024 1:45 PM EDT Surgery [place] [phone] Shilo Lopez MD [facility] [place] [address] COLONOSCOPY, DIAGNOSTIC (WRVU 3.26) Scheduled Procedures Name Priority Associated Diagnoses Date/Ti mt COLONOSCOPY, DIAGNOSTIC (WRVU 3.26) Procedure: Colonoscopy Indication: Malignant neoplasm of colon, unspecified part of colon and History of partial colectomy Sedation: IVCS Timeframe: within 2 weeks Specific provider: first available OV needed: No Anticoagulation status: no documented anticoagulation use 03/24/2024 1:00 PM EDT documented as of this encounter Results * CT Chest Abdomen Pelvis w Contrast (Generic) (06/04/2023 3:21 PM EST) Anatomical Region Laterality Modality Abdomen, Pelvis Computed Tomogra phy Impressions 06/08/2023 1:31 PM EST 1. ??Stable appearance of cecal thickening and associated dilated appendix, which appears tethered to the anterior right lower quadrant abdominal wall. 2. ??Resolved mesenteric lymphadenopathy. 3. ??Decreased size of mass/fluid collection extending along the distal right iliopsoas muscle. 4. ??Indeterminate hepatic lesion stable over a greater than 18 month interval is favored to be heterogeneous focal fatty infiltration. Recommend continued attention to this on follow-up studies. I have personally reviewed the image(s) and the resident's interpretation and agree with the findings, Jil Engle MD at 06/08/2023 1:31 PM Thank you for letting us participate in the care of this patient. ??If you are a health care provider and have any questions regarding this report, please contact the number below. ??For patients who have questions please contact the health inspector health care facilities that requested your imaging first. ? Narrative 06/08/2023 1:31 PM EST EXAMINATION: CT CHEST ABDOMEN PELVIS W CONTRAST (GENERIC) CLINICAL HISTORY: locally advanced unresectable colon cancer. ??On chemotherapy, restaging TECHNIQUE: Helical CT of the chest, abdomen, and pelvis following the intravenous administration of contrast. Administered 98.0 ml of OMNIPAQUE 350.00 mg/ml. Oral contrast was administered. COMPARISON: CT chest, abdomen and pelvis with contrast 04/14/2023, 10/09/2021; MRI abdomen 04/29/2023 FINDINGS: Chest: Lungs and large airways: 3 less than 5 mm subpleural nodules in the right upper lobe are unchanged and may be intrapulmonary lymph nodes (series 4, image 32, 42, 45). No focal airspace or interstitial opacity. Central airways are patent. Pleura: No effusion. Heart/vasculature: Normal heart size. No pericardial effusion. Normal caliber aorta. Fusiform atherosclerosis in the proximal left subclavian artery producing a moderate stenosis, unchanged. Right chest port with catheter tip extending to the cavoatrial junction. Lymph nodes: No pathologically enlarged lymph nodes. Mediastinum and asmita: Unchanged 5 mm low-attenuation focus in the left lobe which is of doubtful significance. Abdomen/pelvis: Liver: Diffuse decreased attenuation is consistent with hepatic steatosis. Heterogeneous hypoattenuating lesion in segment 4, adjacent to the gallbladder fossa which measures 3.2 cm in maximal dimension is unchanged dating back to at least 10/09/2021. This favors a benign etiology such is heterogeneous fatty infiltration. No new lesions. Bile ducts: Nondilated. Gallbladder: No calcified gallstones. Normal caliber wall. Pancreas: Normal attenuation without ductal dilatation. Spleen: Normal. Adrenals: Normal. Kidneys: Symmetric enhancement. No focal lesion or hydronephrosis. Urinary Bladder: Normal. Vasculature: No abdominal aortic aneurysm. There are diffuse atherosclerotic calcifications. The portal vein is patent. Lymph Nodes: Previously enlarged right lower quadrant mesenteric lymph nodes are now normal in size, for example, a node was previously 13 mm is now 6 mm (series 3, image 138). No retroperitoneal adenopathy. Bowel: Enteric contrast opacifies the GI tract to the mid ascending colon. Stomach is mildly is distended with ingested material. Normal caliber small bowel. Normal terminal ileum. ??Stable thickening of the cecal wall. ??The appendix appears tethered towards the right lower quadrant anterior abdominal wall (series 3 image 166). It also contacts with a 3.1 x 1.5 cm peripherally enhancing fluid collection which abuts the iliopsoas, decreased from 4.0 x 2.7 cm. Scattered colonic diverticuli are present. Peritoneum and retroperitoneum: No free fluid. No pneumoperitoneum. Mild persistent mesenteric fat stranding in the right lower quadrant surrounding the tethered appendix and the fluid collection. Abdominal wall: Normal. Reproductive organs: Unchanged lobular contour of the uterus with multiple hypodense masses with associated calcifications is most consistent with fibroids. Both ovaries within normal limits. Osseous structures: Well-circumscribed sclerotic foci in the proximal femur and left acetabulum are unchanged and most likely represent bone islands. Moderately severe L4/5 degenerative disc disease is unchanged. No suspicious lytic or sclerotic osseous lesion. Procedure Note Jil Engle MD - 06/08/2023 EXAMINATION: CT CHEST ABDOMEN PELVIS W CONTRAST (GENERIC) CLINICAL HISTORY: locally advanced unresectable colon cancer. Onchemotherapy, restaging TECHNIQUE: Helical CT of the chest, abdomen, and pelvis following the intravenous administration of contrast. Administered 98.0 ml of NIQZGSABP876.00 mg/ml. Oral contrast was administered. COMPARISON: CT chest, abdomen and pelvis with contrast 04/14/2023,10/09/2021; MRI abdomen 04/29/2023 FINDINGS: Chest: Lungs and large airways: 3 less than 5 mm subpleural nodules in the rightupper lobe are unchanged and may be intrapulmonary lymph nodes (series 4, image32, 42, 45). No focal airspace or interstitial opacity. Central airways arepatent. Pleura: No effusion. Heart/vasculature: Normal heart size. No pericardial effusion. Normalcaliber aorta. Fusiform atherosclerosis in the proximal left subclavian arteryproducing a moderate stenosis, unchanged. Right chest port with catheter tipextending to the cavoatrial junction. Lymph nodes: No pathologically enlarged lymph nodes. Mediastinum and asmita: Unchanged 5 mm low-attenuation focus in the leftlobe which is of doubtful significance. Abdomen/pelvis: Liver: Diffuse decreased attenuation is consistent with hepaticsteatosis. Heterogeneous hypoattenuating lesion in segment 4, adjacent to thegallbladder fossa which measures 3.2 cm in maximal dimension is unchanged dating backto at least 10/09/2021. This favors a benign etiology such is heterogeneousfatty infiltration. No new lesions. Bile ducts: Nondilated. Gallbladder: No calcified gallstones. Normal caliber wall. Pancreas: Normal attenuation without ductal dilatation. Spleen: Normal. Adrenals: Normal. Kidneys: Symmetric enhancement. No focal lesion or hydronephrosis. Urinary Bladder: Normal. Vasculature: No abdominal aortic aneurysm. There are diffuseatherosclerotic calcifications. The portal vein is patent. Lymph Nodes: Previously enlarged right lower quadrant mesenteric lymphnodes are now normal in size, for example, a node was previously 13 mm is now 6 mm(series 3, image 138). No retroperitoneal adenopathy. Bowel: Enteric contrast opacifies the GI tract to the mid ascendingcolon. Stomach is mildly is distended with ingested material. Normal calibersmall bowel. Normal terminal ileum. Stable thickening of the cecal wall. The appendix appears tethered towards the right lower quadrant anteriorabdominal wall (series 3 image 166). It also contacts with a 3.1 x 1.5 cmperipherally enhancing fluid collection which abuts the iliopsoas, decreased from 4.0 x2.7 cm. Scattered colonic diverticuli are present. Peritoneum and retroperitoneum: No free fluid. No pneumoperitoneum. Mild persistent mesenteric fat stranding in the right lower quadrantsurrounding the tethered appendix and the fluid collection. Abdominal wall: Normal. Reproductive organs: Unchanged lobular contour of the uterus withmultiple hypodense masses with associated calcifications is most consistent with fibroids. Both ovaries within normal limits. Osseous structures: Well-circumscribed sclerotic foci in the proximalfemur and left acetabulum are unchanged and most likely represent bone islands.Moderately severe L4/5 degenerative disc disease is unchanged. No suspicious lyticor sclerotic osseous lesion. IMPRESSION 1. Stable appearance of cecal thickening and associated dilated appendix,which appears tethered to the anterior right lower quadrant abdominal wall. 2. Resolved mesenteric lymphadenopathy. 3. Decreased size of mass/fluid collection extending along the distalright iliopsoas muscle. 4. Indeterminate hepatic lesion stable over a greater than 18 monthinterval is favored to be heterogeneous focal fatty infiltration. Recommendcontinued attention to this on follow-up studies. I have personally reviewed the image(s) and the resident's interpretationand agree with the findings, Jil Engle MD at 06/08/2023 1:31 PM Thank you for letting us participate in the care of this patient. If youare a health care provider and have any questions regarding this report,please contact the number below. For patients who have questions please contactthe health inspector health care facilities that requested your imaging first. Derek Lnidquist MD IMG CT ORDERABLES documented in this encounter Visit Diagnoses Diagnosis Malignant neoplasm of ascending colon Malignant neoplasm of ascending colon documented in this encounter Care Teams Security Compliance Specialist Relationship Specialty Start Date End Date Shruthi Arrington MD [address] [place] [address] PCP - General 05/06/10 06/24/23 documented as of this encounter
--- OUTSIDE RECORDS SUMMARY | 2024-01-26 03:09 | XMS_ITS | Encounter Summary ---
Author Organization [facility] Address [facility] [place] [address] Care Team Providers Care Equipment Processor Name Role Phone Hina Johnson Primary Care Provider [phone] Encounter Details Date Type Department Care Team (Latest Contact Info) Description 06/25/2023 Travel Social History Tobacco Use Types Packs/Day [...] AM EDT Office Visit Hematology/Oncolog y at [address] [phone] Derek Lindquist MD [facility] [place] [address] Ann Tello APRN [address] [place] [address] DR HEMATOLOGY [place] [address] 03/24/2024 1:00 PM EDT Hospital [place] [address] Shilo Lopez MD [facility] [place] [address] 03/24/2024 1:00 PM EDT - 03/24/2024 1:45 PM EDT [place] [address] Shilo Lopez MD [facility] [place] [address] COLONOSCOPY, DIAGNOSTIC (WRVU 3.26) Scheduled Procedures Name [...] on filedocumented in this encounter Care Teams Equipment Processor Relationship Specialty Start Date End Date Hina Johnson [address] [place] [address] PCP - General Family Medicine 06/25/23 documented as of this encounter
--- OUTSIDE RECORDS SUMMARY | 2024-01-26 03:09 | XMS_ITS | Encounter Summary ---
Author Organization [facility] Address [facility] [place] [address] Care Team Providers Care Straight Ruling Machine Operator Name Role Phone EloisaAlvaro Hina Primary Care Provider [phone] Reason for Visit * Reason Comments Chemotherapy * Treatment/Therapy Plan Authorization (Routine) - Pending Review Specialty Diagnoses / Procedures Referred By Contac t Referred To Contact Hematology and Oncology Diagnoses Adenocarcinoma, appendix Procedures TC PALONOSETRON HCL, 25MCG, INJECTION (ALOXI) TC OXALIPLATIN, 0.5MG, INJECTION (ELOXATIN) TC LEUCOVORIN CALCIUM, 50MG, INJECTION (WELLCOVORIN) TC FLOUROURACIL, 500MG FOLFOX J2469 ALOXI J0640 LEUCOVORIN J9263 OXALIPLATIN J9190 ADRUCIL Derek Lindquist MD [address] [place] [address] [place] [address] Derek Lindquist MD [address] [place] [address] [place] [address] Referral ID Status Reason Start Date Expiration Date V isits Requested Visits Authorized [id number] Pending Review 04/07/2023 04/06/2024 1 101 Encounter Details Date Type Department Care Team (Late st Contact Info) Description 07/09/2023 11:00 AM EST Infusion Hematology Oncology at [address] [phone] Adenocarcinoma, appendix Social History Tobacco Use Types [...] as of this encounter Progress Notes * Darren Barton, RN - 07/09/2023 11:00 AM EST INFUSION THERAPY ADMINISTRATION NOTES DIAGNOSIS: GI Colorectal CA CYCLE #: Day 1 Cycle 6 REASON FOR VISIT: FOLFOX infusion and initiation of continunous home 5FU infusion via CADD pump provided by [employer] SUBJECTIVE Blanca offers no complaints. OBJECTIVE LAB DATA: Labs reviewed and found adequate for treatment. Pre administration: Chemotherapy orders independently verified for drug name, route, and dosage per patient's height, weight and BSA by Kim Giordano RN and Pharm Shruthi. WBC 6.15; PLT 242; ANC 3.77; BUN 21; Creat 0.7 At time of administration Patient identity verified using patient's name and date of at the chair/bedside by double RN check just prior to initiating the patient's home infusion chemotherapy via CADD pump provided by [employer]. Fluorouracil 4680 mg over 46 hours, IV via CADD pump. Amount infused verified by double RNcheck after 15 minutes and appropriate amount had infused. REACTIONS (DESCRIPTION, TIME, INTERVENTION AND EFFECTIVENESS) none ASSESSMENT Blanca was awake, alert and tolerated treatment well. Port treated with TPA with good effect. Good blood return and patency checked per use. Disconnect kit provided for Wednesday by daughter. Pulsatile method teaching reinforced. PLAN Return to clinic as scheduled. documented in this encounter Plan of Treatment Upcoming Encounters Date Type Department Care Team (Late st Contact Info) Description 01/28/2024 10:30 AM EDT Office Visit Hematology/Oncolog y at [address] [phone] Derek Lindquist MD [facility] [place] [address] Ann Tello APRN [address] [place] [address] DR HEMATOLOGY [place] [address] 03/24/2024 1:00 PM EDT Hospital Encounter [place] [phone] Shilo Lopez MD [facility] [place] [address] 03/24/2024 1:00 PM EDT - 03/24/2024 1:45 PM EDT [place] [phone] Shilo Lopez MD [facility] [place] [address] COLONOSCOPY, DIAGNOSTIC (WRVU 3.26) Scheduled Procedures Name [...] MAR Action Action Date Dose Rate Site alteplase (Cathflo) injection 2 mg 2 mg, Intravenous, ONCE PRN, Starting on Wed07/09/23 at 1104, Until Wed07/09/23 at 1708, Line Occlusion, Refer to Cathflo Activase (Alteplase) Administration policy for additional information regarding guidelines and administration., Routine Given 07/09/2023 11:25 AM EST 2 mg dexAMETHasone (Decadron) tablet 10 mg 10 mg, Oral, ONCE, 1 dose, On Wed07/09/23 at 1245, Administer prior to chemotherapy, Routine Given 07/09/2023 12:35 PM EST 10 mg fluorouraciL (ADRUCIL) chemo injection 780 mg 780 mg (400 mg/m2/dose ? 1.95 m2 Treatment Plan BSA from Recorded weight), Intravenous, ONCE, 1 dose, On Wed07/09/23 at 1345, Administer over 5 Minutes, Warning Vesicant/Irritant Medication Given 07/09/2023 2:47 PM EST 780 mg 187.2 mL/hr fluorouraciL (AdruciL) in sodium chloride 0.9% 138 mL infusion (46 Hour - For Home Use) 4,680 mg 4,680 mg (2,400 mg/m2/dose ? 1.95 m2 Treatment Plan BSA from Recorded weight), Intravenous, ONCE, 1 dose, On Wed07/09/23 at 1515, Administer over 46 Hours, Warning Vesicant/Irritant Medication To be infused via an ambulatory infusion CADD Sanchez pump continuously IV at 3 mL/hr for 46 hours. Pump contains a 46 hour supply and provides a daily dose of 1,200 mg/m2/day = 2,400 mg/m2 IV over 46 hours. Given 07/09/2023 3:02 PM EST 4,680 mg 3 mL/hr leucovorin (Wellcovorin) 350 mg in dextrose 5% 85 mL infusion 350 mg, Intravenous, ONCE, 1 dose, On Wed07/09/23 at 1345, Administer over 85 Minutes, May Y-site with OXALIplatin Do not administer at a rate faster than 160 milligrams/minute. New Bag 07/09/2023 1:12 PM EST 350 mg 60 mL/hr OXALIplatin (Eloxatin) 166 mg in dextrose 5% 283.2 mL infusion 166 mg (rounded from 165.75 mg = 85 mg/m2/dose ? 1.95 m2 Treatment Plan BSA from Recorded weight), Intravenous, ONCE, 1 dose, On Wed07/09/23 at 1345, Administer over 85 Minutes, Compatible with dextrose-containing solution only. Warning Vesicant/Irritant Medication New Bag 07/09/2023 1:12 PM EST 166 mg 199.9 mL/hr palonosetron (Aloxi) (0.05 mg/mL) injection 0.25 mg 0.25 mg, Intravenous, ONCE, 1 dose, On Wed07/09/23 at 1245, Administer over 30 seconds. Administer prior to chemotherapy, Routine Given 07/09/2023 12:34 PM EST 0.25 mg documented in this encounter Care Teams Straight Ruling Machine Operator Relationship Specialty Start Date End Date Hina Johnson [address] [place] [address] PCP - General Family Medicine 06/25/23 documented as of this encounter
--- OUTSIDE RECORDS SUMMARY | 2024-01-26 03:09 | XMS_ITS | Encounter Summary ---
Author Organization [facility] Address [facility] [place] [address] Care Team Providers Care Sound Equipment Mechanic Name Role Phone Shruthi Arrington MD Primary Care Provider [phone] Reason for Visit * Reason Comments Chemotherapy [...] [id number] OXALIPLATIN [id number] ADRUCIL Derek Lindquist MD [address] [place] [address] [place] [address] Derek Lindquist MD [address] [place] [address] [place] [address] Referral ID Status Reason Start Date Expiration Date V isits Requested Visits Authorized [id number] Pending Review 04/07/2023 04/06/2024 1 101 Encounter Details Date Type Department Care Team (Late st Contact Info) Description 05/14/2023 11:00 AM EST Infusion Hematology Oncology at [address] [phone] Adenocarcinoma, appendix Social History Tobacco Use Types [...] as of this encounter Progress Notes * Joyce Cortes RN - 05/14/2023 11:00 AM EST INFUSION THERAPY ADMINISTRATION NOTES DIAGNOSIS: cancer if appendix PROTOCOL:na CYCLE #: 3 REASON FOR VISIT: folfox SUBJECTIVE Blanca Lujan has no complaints. OBJECTIVE LAB DATA: Labs reviewed and found adequate for treatment. Pre administration: Chemotherapy orders independently verified for drug name, route, and dosage per patient's height, weight and BSA by Joyce Cortes RN and Ilia Collado pharmacist. HOME INFUSION - Connect Fluorouracil (5-FU) DOSE: 4680 mg over 46 hours RATE: 3mL/hr ROUTE: IV Port START TIME: 1403 Chemotherapy safety checks performed per protocol with mayra Blue RN. Drug amount infused verified by Mayra Olivares RN double check after approximated 15 minutes and thatadequate mLs had infused. Anticipated date/time of disconnect: 05/16/23 1203pm Plan for disconnect: at [facility] Confirmed with Ann SUH (DESCRIPTION, TIME, INTERVENTION AND EFFECTIVENESS) none ASSESSMENT Blanca Lujan was awake, alert and he tolerated treatment well. PLAN Return to clinic per routine. documented in this encounter Plan of Treatment Upcoming Encounters Date Type Department Care Team (Late st Contact Info) Description 01/28/2024 10:30 AM EDT Office Visit Hematology/Oncolog y at [address] [phone] Derek Lindquist MD [facility] [place] [address] Ann Tello APRN [address] [place] [address] DR HEMATOLOGY [place] [address] 03/24/2024 1:00 PM EDT Hospital Encounter [place] [address] Shilo Lopez MD [facility] [place] [address] 03/24/2024 1:00 PM EDT - 03/24/2024 1:45 PM EDT Surgery [place] [address] Shilo Lopez MD [facility] [place] [address] COLONOSCOPY, DIAGNOSTIC (WRVU 3.26) Scheduled Procedures Name [...] 10 mg, Oral, ONCE, 1 dose, On Wed05/14/23 at 1145, Administer prior to chemotherapy, Routine Given 05/14/2023 11:30 AM EST 10 mg fluorouraciL (ADRUCIL) chemo injection 780 mg 780 mg (400 mg/m2/dose ? 1.95 m2 Treatment Plan BSA from Recorded weight), Intravenous, ONCE, 1 dose, On Wed05/14/23 at 1245, Administer over 5 Minutes, Warning Vesicant/Irritant Medication Given 05/14/2023 1:56 PM EST 780 mg 187.2 mL/hr fluorouraciL (AdruciL) in sodium chloride 0.9% 138 mL infusion (46 Hour - For Home Use) 4,680 mg 4,680 mg (2,400 mg/m2/dose ? 1.95 m2 Treatment Plan BSA from Recorded weight), Intravenous, ONCE, 1 dose, On Wed05/14/23 at 1415, Administer over 46 Hours, Warning Vesicant/Irritant Medication To be infused via an ambulatory infusion CADD Sanchez pump continuously IV at 3 mL/hr for 46 hours. Pump contains a 46 hour supply and provides a daily dose of 1,200 mg/m2/day = 2,400 mg/m2 IV over 46 hours. Given 05/14/2023 2:03 PM EST 4,680 mg 3 mL/hr leucovorin (Wellcovorin) 350 mg in dextrose 5% 85 mL infusion 350 mg, Intravenous, ONCE, 1 dose, On Wed05/14/23 at 1245, Administer over 85 Minutes, May Y-site with OXALIplatin Do not administer at a rate faster than 160 milligrams/minute. New Bag 05/14/2023 12:16 PM EST 350 mg 60 mL/hr OXALIplatin (Eloxatin) 150 mg in dextrose 5% 280 mL infusion 150 mg, Intravenous, ONCE, 1 dose, On Wed05/14/23 at 1245, Administer over 85 Minutes, Dose Ordered = 166 mg (85 mg/m2). Pharmacist rounded dose per procedure. Compatible with dextrose-containing solution only. Warning Vesicant/Irritant Medication New Bag 05/14/2023 12:16 PM EST 150 mg 197.6 mL/hr palonosetron (Aloxi) (0.05 mg/mL) injection 0.25 mg 0.25 mg, Intravenous, ONCE, 1 dose, On Wed05/14/23 at 1145, Administer over 30 seconds. Administer prior to chemotherapy, Routine Given 05/14/2023 11:30 AM EST 0.25 mg documented in this encounter Care Teams Sound Equipment Mechanic Relationship Specialty Start Date End Date Shruthi Arrington MD [address] [place] [address] PCP - General 05/06/10 06/24/23 documented as of this encounter
--- OUTSIDE RECORDS SUMMARY | 2024-01-26 03:09 | XMS_ITS | Encounter Summary ---
Author Organization [facility] [place] [address] Care Team Providers Care Local Company Tanker Driver Name Role Phone Shruthi Arrington MD Primary Care Provider [phone] Encounter Details Date Type Department Care Team (Late st Contact Info) Description 04/29/2023 Ancillary Procedure [place] [phone] Shruthi Arrington MD [address] [place] [address] Social History Tobacco Use Types Packs/Day Years [...] EDT Office Visit Hematology/Oncolog y at [address] [phone] Derek Lindquist MD [facility] [place] [address] Ann Tello APRN [address] [place] [address] DR HEMATOLOGY AND ONCOLOGY [place], [place] [address] 03/24/2024 1:00 PM EDT Hospital Encounter [place] [address] Shilo Lopez MD [facility] [address] 03/24/2024 1:00 PM EDT - 03/24/2024 1:45 PM EDT Surgery [place] [address] Shilo Lopez MD [facility] [place] [address] COLONOSCOPY, DIAGNOSTIC (WRVU 3.26) Scheduled Procedures Name [...] Procedure Name Priority Date/Time Associated Diagnosis Comments FILM LIBRARY STORAGE ONLY MR ABDOMEN Routine 04/29/2023 12:00 AM EST documented in this encounter Results * Film Library- Storage Only MR Abdomen (04/29/2023 12:00 AM EST) Narrative [facility] - 05/01/2023 1:16 AM EST This exam is auto-finalizing. It's purpose is for storage only. Shruthi Arrington MD IMG FILM LIBRARY ORD ERABLES [place], [place] documented in this encounter Visit Diagnoses Not on filedocumented in this encounter Care Teams Local Company Tanker Driver Relationship Specialty Start Date End Date Shruthi Arrington MD [address] [place] [address] PCP - General 05/06/10 06/24/23 documented as of this encounter
--- OUTSIDE RECORDS SUMMARY | 2024-01-26 03:09 | XMS_ITS | Encounter Summary ---
Author Organization [facility] Address [facility] [place] [address] Care Team Providers Care Health And Safety Director Name Role Phone Shruthi Arrington MD Primary Care Provider [phone] Encounter Details Date Type Department Care Team (Latest Contact Info) Description 06/04/2023 Travel Social History Tobacco Use Types Packs/Day [...] AM EDT Office Visit Hematology/Oncolog y at [address] [phone] Derek Lindquist MD [facility] [place] [address] Ann Tello APRN [address] [place] [address] DR HEMATOLOGY [place] [address] 03/24/2024 1:00 PM EDT Hospital Encounter [place] [address] Shilo Lopez MD [facility] [place] [address] 03/24/2024 1:00 PM EDT - 03/24/2024 1:45 PM EDT Surgery [place] [address] Shilo Lopez MD [facility] [place] [address] COLONOSCOPY, DIAGNOSTIC (WRVU 3.26) Scheduled Procedures Name [...] on filedocumented in this encounter Care Teams Health And Safety Director Relationship Specialty Start Date End Date Shruthi Arrington MD [address] [place] [address] PCP - General 05/06/10 06/24/23 documented as of this encounter
--- OUTSIDE RECORDS SUMMARY | 2024-01-26 03:09 | XMS_ITS | Encounter Summary ---
Author Organization [facility] Address [facility] [place] [address] Care Team Providers Care Erp Specialist Name Role Phone CristobalEliza Hina Primary Care Provider [phone] Reason for Referral * Consultation (Routine) - Closed Specialty Diagnoses / Procedures Referred By Macy t Referred To Contact General Surgery Diagnoses Malignant neoplasm of ascending colon Derek Lindquist MD [facility] [place] [address] Ema Garcia MD [facility] [place] [address] Referral ID Status Reason Start Date Expiration Date V isits Requested Visits Authorized [id number] Closed Consult, Test & Treat 08/06/2023 08/05/2024 1 1 * Diagnostic Test (Routine) - Closed Specialty Diagnoses / Procedures Referred By Contac t Referred To Contact Radiology Diagnoses Malignant neoplasm of ascending colon Procedures CT Chest Abdomen Pelvis w Contrast (Generic) Derek Lindquist MD [facility] [place] [address] [facility] [place] [address] Referral ID Status Reason Start Date Expiration Date V isits Requested Visits Authorized [id number] Closed Specialty Service Requested 08/06/2023 02/03/2025 1 1 Encounter Details Date Type Department Care Team (Late st Contact Info) Description 08/06/2023 10:30 AM EST Office Visit Hematology/Oncology at [address] [phone] Derek Lindquist MD [facility] [place] [address] Ann Tello APRN [address] [place] [address] DR HEMATOLOGY AND ONCOLOGY [place], [place] [id number] Malignant neoplasm of ascending colon Social History [...] Sign Reading Time Taken Comments Blood Pressure 177/83 08/06/2023 10:18 AM EST Pulse 83 08/06/2023 10:18 AM EST Temperature 36.6 ??C (97.8 ??F) 08/06/2023 10:[address] Respiratory Rate 18 08/06/2023 10:18 AM EST Oxygen Saturation 99% 08/06/2023 10:18 AM EST Inhaled Oxygen Concentration - - Weight 88.1 kg (194 lb 3.2 oz) 08/06/2023 10:18 AM EST Height 158.4 cm (5' 2.36) 08/06/2023 10:[address] Body Mass Index 35.11 08/06/2023 10:18 AM EST documented in this encounter Progress Notes * Derek Lindquist MD - 08/06/2023 10:30 AM EST Subjective Patient ID: Blanca [...] evidence of acute diverticulitis 5. Fibroid uterus ([facility] second read) - IMPRESSION 1. Unexpected findings [...] Began therapy with Folfox on 04/16/23, s/p [address] c/a/p 06/04/23 (after 4 [...] clinic today by her daughter Kera. She has been feeling poorly since her last visit. She says she was pretty sick last week. She felt congested in her head and was sneezing. Overall these symptoms are better but she thinks she may still have some congestion. Last night she slept poorly. She has had nausea after chemotherapy. She has taken prochlorperazine on occasion which may help. She hasn't been using the zofran. What helps most with the nausea is smoking marijuana. She has had some dizziness which she notices mainly when she moves quickly. Her weight is in the same range. 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 This is mostly gone. No diarrhea or stomatitis. She is having hair thinning. Soc Hx:Lives in [place], [place] Tob - Quit in 2010 Etoh [...] 3.3. Lytes and LFTs o/w unremarkable. CEA 08/06/23 07/22/23 3.3 07/08/23 2.9 06/24/23 2.8 06/11/23 [...] and without an elevated white count andDr. Garcia feels this represents tumor. We have made a referral to the Familial Cancer Program due to concern for a polyposis syndrome. On 04/16/23 she began therapy with Folfox and has received 7 cycles. She has tolerated therapy pretty well. The main issues seem to be lack of appetite, fatigue and cold sensitivity. We have talked about adding avastin and her preference is not to add anything else at this time. A restaging CT scan was done on 06/04/23. This was read as showing a stable appearance of the cecalthickening and associated dilated appendix, which appears tethered to the anterior right lower quadrant abdominal wall; resolved mesenteric lymphadenopathy; and decreased size of mass/fluid collection extending along the distal right iliopsoas muscle. She is anxious to consider resection. I communicated with Dr. Garcia. The plan was for 4 more cycles followed by restaging and re-evaluation for surgery. We will go ahead with therapy today and see her back in two weeks with a restaging CT scan prior. The side effects are worsening and lasting longer with time. We talked about a dose reduction but shedoes not feel that is necessary and we will go ahead with full dose therapy. I will also make a referral back to Dr. Garcia. I am hoping we can coordinate an appt for her to be seen the same day as the CT. Blanca is hoping that this will be the last cycle of chemotherapy and that she will be a surgical candidate after that. We will see how the CT looks. documented in this encounter Plan of Treatment Upcoming Encounters Date Type Department Care Team (Late st Contact Info) Description 01/28/2024 10:30 AM EDT Office Visit Hematology/Oncolog y at [address] [phone] Dreek Lindquist MD [facility] [place] [address] Ann Tello MUSHROOM SPAWN MAKER [address] [place] [address] DR [place]Y [place] [address] 03/24/2024 1:00 PM EDT Hospital En[place] [address] Shilo Lopez MD [facility] [place] [address] 03/24/2024 1:00 PM EDT - 03/24/2024 1:45 PM EDT [place] [phone] Shilo Lopez MD [facility] [place] [address] COLONOSCOPY, DIAGNOSTIC (WRVU 3.26) Scheduled Procedures Name Priority Associated Diagnoses Date/Ti ms COLONOSCOPY, DIAGNOSTIC (WRVU 3.26) Procedure: Colonoscopy Indication: Malignant neoplasm of colon, unspecified part of colon and History of partial colectomy Sedation: IVCS Timeframe: within 2 weeks Specific provider: first available OV needed: No Anticoagulation status: no documented anticoagulation use 03/24/2024 1:00 PM EDT Scheduled Referrals Name Type Priority Associated Diagnoses Order Schedule Referral to Colorectal Surgery Outpatient Referral Routine Malignant neoplasm of ascending colon Ordered: 08/06/2023 documented as of this encounter Results * [...] who have questions please contact the health primary health care nurse that requested your imaging first. ? Electronically signed by: Tanesha Lund MD, [facility] ??([phone]), at 08/12/2023 10:30 AM Narrative 08/12/2023 10:30 [...] patients who have questions please contactthe health primary health care nurse that requested your imaging first. Electronically signed by: Tanesha Lund MD, [facility]([phone]), at 08/12/2023 10:30 AM Derek Lindquist MD IMG CT ORDERABLES documented in this encounter Visit Diagnoses Diagnosis Malignant neoplasm of ascending colon Malignant neoplasm of ascending colon documented in this encounter Care Teams Erp Specialist Relationship Specialty Start Date End Date Hina Johnson [address] [place] [address] PCP - General Family Medicine 06/25/23 documented as of this encounter
--- OUTSIDE RECORDS SUMMARY | 2024-01-26 03:09 | XMS_ITS | Encounter Summary ---
Author Organization [facility] Address [facility] [place] [address] Care Team Providers Care Planning Engineer Name Role Phone EloisaAlvaroHina Primary Care Provider [phone] Encounter Details Date Type Department Care Team (Late st Contact Info) Description 06/30/2023 Notes Only Hematology [place] [address] [facility] [place] [address] Social History Tobacco Use Types Packs/Day Years [...] of this encounter Progress Notes * Monique Santamaria MD - 06/30/2023 10:09 AM EST Images from the original note were not included. Patient Name: Blanca Lujan : 1955 Blanca Lujan will be meeting with the genetic counselor(s) of the [facility]amil[facility] Cancer Program ([facility])for genetic testing as per referral placed by their referring provider. Genetic counselor(s) will order appropriate genetic testing based on their assessment and indications for which the patient has been referred to the program. Based on genetic testing results, and within the scope of practice of [facility] genetic counselors, referrals to other providers/departments for recommendations regarding screening/ further management may need to be ordered by genetic counselors, if indicated; and will be communicated with the patients per genetic counselors. Please be advised that I have NOT met with Blanca Camachooin; and that Blanca Lujan may or may NOT have established care with medical oncology. Please be advised that my name may appear as referring provider for referrals s/p genetic testing results, given my relation with [facility]; otherwise I have NOT established care with Blanca Lujan frommedical oncology standpoint unless patient has been formally referred to see me. If referrals for medical oncology are indicated; please place orders for referrals as indicated through appropriate channels. If patient has already established care with medical oncology, please communicate further recommendations to their primary oncologist. For questions regarding genetic testing results, please communicate with [facility] genetic counselors. An appointment has been scheduled with [facility] Genetics. Monique Santamaria MD Medical Oncology [facility] Web Page DeveloperPrinting Table Hand, [facility] [employer] [email or web address] documented in this encounter Plan of Treatment Upcoming Encounters Date Type Department Care Team (Late st Contact Info) Description 01/28/2024 10:30 AM EDT Office Visit Hematology/Oncolog y at [address] [phone] Derek Lindquist MD [facility] [place] [address] Ann Tello APRN [address] [place] [address] DR HEMATOLOGY [place] [address] 03/24/2024 1:00 PM EDT Hospital Encounter [place] [address] [facility] [place] [address] 03/24/2024 1:00 PM EDT - 03/24/2024 1:45 PM EDT Surgery [place] [address] [facility] [place] [address] COLONOSCOPY, DIAGNOSTIC (WRVU 3.26) Scheduled Procedures Name Priority Associated Diagnoses Date/Ti fl COLONOSCOPY, DIAGNOSTIC (WRVU 3.26) Procedure: Colonoscopy Indication: Malignant neoplasm of colon, unspecified part of colon and History of partial colectomy Sedation: IVCS Timeframe: within 2 weeks Specific provider: first available OV needed: No Anticoagulation status: no documented anticoagulation use 03/24/2024 1:00 PM EDT documented as of this encounter Visit Diagnoses Not on filedocumented in this encounter Care Teams Planning Engineer Relationship Specialty Start Date End Date Hina Johnson [address] [place] [address] PCP - General Family Medicine 06/25/23 documented as of this encounter
--- OUTSIDE RECORDS SUMMARY | 2024-01-26 03:09 | XMS_ITS | Encounter Summary ---
Author [place] [address] Care Team Providers Care Tappet Adjuster Name Role Phone Shruthi Arrington MD Primary Care Provider [phone] Reason for Visit * Reason Onset Date Comments Prior Authorization 04/15/2023 Molecular ca ncer testing CPT 89217 is a covered benefit. Encounter Details Date Type Department Care Team (Late st Contact Info) Description 04/15/2023 Telephone [place] [phone] Felicia Fallon Prior Authorization (Molecular cancer testing CPT 23006 is a covered benefit. ) Social History Tobacco Use Types Packs/Day Years [...] encounter Miscellaneous Notes * Telephone Encounter - Paulette Guerrier - 04/20/2023 10:29 AM ESTSummary: Molecular cancer testing review - Status check Molecular cancer testing review - Status check: Accessed account working 04/13/23's cancer list which has been updated. * Telephone Encounter - Felicia Fallon - 04/15/2023 4:17 PM EDTSummary: AUTH NOT REQUIRED Molecular cancer testing: CPT 49839 is a covered benefit: I received an e-mail from [employer] in [employer] ([employer] 04/13/2023) requesting coverage review for CPT 07991 which is to be done on the patient???s sample tissue obtained on03/16/2023, Ordering provider is Shilo Lopez MD. Upon review, the patient's traditional Medicare A&B policy [id number] and secondary [place] Medicaid policy [id number] are active. Per Medicare's website, CPT 62182 is a covered benefit with no authorization needed. I will e-mail [employer] to let her know of approved coverage. documented in this encounter Plan of Treatment Upcoming Encounters Date Type Department Care Team (Late st Contact Info) Description 01/28/2024 10:30 AM EDT Office Visit Hematology/Oncolog y at [address] [phone] Derek Lindquist MD [facility] DR [place] [address] Ann Tello APRN [address] [place] [address] DR HEMATOLOGY [place] [address] 03/24/2024 1:00 PM EDT Hospital Encounter [place] [phone] Shilo Lopez MD [facility] GASTROENTEROLOGY [place] [address] 03/24/2024 1:00 PM EDT - 03/24/2024 1:45 PM EDT [place] [phone] Shilo Lopez MD [facility] GASTROENTEROLOGY [place] [address] COLONOSCOPY, DIAGNOSTIC (WRVU 3.26) Scheduled Procedures Name Priority Associated Diagnoses Date/Ti me [facility] Procedure: Colonoscopy Indication: Malignant neoplasm of colon, unspecified part of colon and History of partial colectomy Sedation: IVCS Timeframe: within 2 weeks Specific provider: first available OV needed: No Anticoagulation status: no documented anticoagulation use 03/24/2024 1:00 PM EDT documented as of this encounter Visit Diagnoses Not on filedocumented in this encounter Care Teams Tappet Adjuster Relationship Specialty Start Date End Date Shruthi Arrington MD [address] [place] [address] PCP - General 05/06/10 06/24/23 documented as of this encounter
--- OUTSIDE RECORDS SUMMARY | 2024-01-26 03:09 | XMS_ITS | Encounter Summary ---
Author Organization [facility] Address [facility] [place] [address] Care Team Providers Care Head Of Research & Insights Name Role Phone Shruthi Arrington MD Primary Care Provider [phone] Encounter Details Date Type Department Care Team (Late st Contact Info) Description 05/28/2023 10:30 AM EST Office Visit Hematology/Oncology at [address] [phone] Derek Lindquist MD [facility] [place] [address] Ann Tello APRN [address] [place] [address] [place] [address] Adenocarcinoma, appendix Social History Tobacco Use Types [...] Sign Reading Time Taken Comments Blood Pressure 151/75 05/28/2023 10:22 AM EST Pulse 87 05/28/2023 10:22 AM EST Temperature 36 ??C (96.8 ??F) 05/28/2023 10:22 AM EST Respiratory Rate 18 05/28/2023 10:22 AM EST Oxygen Saturation 100% 05/28/2023 10:22 AM EST Inhaled Oxygen Concentration - - Weight 86.2 kg (190 lb) 05/28/2023 10:22 AM EST Height 158.4 cm (5' 2.36) 05/28/2023 10:[address] Body Mass Index 34.35 05/28/2023 10:22 AM EST documented in this encounter Progress Notes * Ann Tello, FLEET COORDINATOR - 05/28/2023 10:30 AM EST Subjective Patient ID: Blanca [...] evidence of acute diverticulitis 5. Fibroid uterus ([facility] second read) - IMPRESSION 1. Unexpected findings [...] pulmonary nodules, indeterminant. Recommend attention on follow-up. H. Began therapy with FOLFOX 04/16/23, s/p 1 cycle. I. MRI abdomen 04/30/23 - Impression: 1.4 x 2.0 cm lesion centrally within liver, stable when compared to prior studies dating back to 10/09/21. Overall, this Is favored to represent a benign process such as focal fatty infiltration with adjacent fatty sparing. An ademona or FNH is less favored. A follow-up MRI in 3-6 months can be performed to ensure continued stability, if clinical interest dictates. 2. Anxiety and depression 3. PTSD 4. ADHD 5. ZARA 6. 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 The history is summarized above. She began C1 of FOLFOX on 04/16/23. Blanca is accompanied to clinic today by her daughter Kera. She is feeling fair. Her appetite is poor, weight is overall stable. She did have some nausea and the oral antiemetics were not very effective. She has been using stomach ease tea which has been helpful, and if not then marijuana has been helpful. No fevers or recent illnesses. Had more cramping this cycle. No Diarrhea, some mild constipation. Energy is pretty poor. She struggles with seasonal depression and is usually in [place] by now, this is really. 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 Soc Hx:Lives in [place], [place] Tob - Quit in 2010 Etoh [...] PCP. Review of Systems Constitutional: Negative. HENT: Positive for mouth sores (small, resolved, encouraged baking soda rinses). Cardiovascular: Negative. Gastrointestinal: Positive for nausea. Negative for blood in stool, constipation, diarrhea and vomiting. Increase in gas and cramping. Genitourinary: Negative. Musculoskeletal: Negative. Neurological: Negative. Psychiatric/Behavioral: Negative. Objective Physical Exam Vitals reviewed. Constitutional: General: She is not in acute distress. HENT: Head: Normocephalic and atraumatic. Eyes: General: No scleral icterus. Cardiovascular: Rate and Rhythm: Normal rate. Pulmonary: Effort: Pulmonary effort is normal. No respiratory distress. Abdominal: General: There is no distension. Musculoskeletal: General: No swelling. Skin: General: Skin is warm and dry. Coloration: Skin is not jaundiced. Findings: No rash. Neurological: General: No focal deficit present. Mental Status: She is alert. Coordination: Coordination normal. Psychiatric: Mood and Affect: Mood normal. ECOG PS - 1 BP 151/75 (Patient Position: Sitting) Pulse 87 Temp 36 ??C (96.8 ??F) (Temporal) Resp 18 Ht158.4 cm (5' 2.36) Wt 86.2 kg (190 lb) SpO2 100% BMI 34.35 kg/m?? Labs: WBC/ANC 6., Hgb/Hct 12.1/35.2, Plts 220,000. BUN/Cr 17/0.9, glucose 146, Albumin 3.1, remainder of CMP otherwise unremarkable. CEA 05/27/23 4.5 05/13/23 6.2 04/29/23 8.3 04/14/23 [...] the pathology shows adenocarcinoma, MMR intact. NGS has been requested. Dr. Lindquist spoke with Dr. Garcia on 04/07/23. She discussed the case with Dr. Juarez (re: CRS and Hipec) and the recommendation was for chemotherapy. The tumor was considered unresectable. Depending on response, this may be revisited A restaging CT scan was done on 04/14/23, report above. The appendiceal tumor is stable. There is mild increase in regional nodes. There was still some question as to the nature of the multiloculated fluid collection (eg tumor vs infection). However, she afebrile and without an elevated white count and Dr. Garcia feels this represents tumor. She had an MRI of her abdomen, confirming stability of the lesion in the liver. We will continue tomonitor on CT scans, and can reconsider another MRI if needed. We have made a referral to the Familial Cancer Program due to concern for a polyposis syndrome, courtney an appointment scheduled for 06/30/23. On 04/16/23 she began therapy with Folfox and has received 3 cycles. She is tolerating therapy pretty well at this point. The main issues seem to be lack of appetite, fatigue and cold sensitivity. Shewould prefer not to add avastin. The labs are adequate and we will proceed with cycle 4 of therapy today and she will plan to return to clinic in [address] scan prior. It is possible she will want to go to [place] during this time, acknowledging that she will be delaying any further treatment by 2 additional weeks. If she decides to do this, we will call her with the CT results. documented in this encounter Plan of Treatment Upcoming Encounters Date Type Department Care Team (Late st Contact Info) Description 01/28/2024 10:30 AM EDT Office Visit Hematology/Oncolog y at [address] [phone] Derek Lindquist MD [facility] [place] [address] Ann Tello APRN [address] [place] [address] DR [place] [address] 03/24/2024 1:00 PM EDT Hospital Encounter [place] [phone] Shilo Lopez MD [facility] [place] [address] 03/24/2024 1:00 PM EDT - 03/24/2024 1:45 PM EDT Surgery Gastroenterology at [place] [phone] Shilo Lopez MD [facility] [place] [address] COLONOSCOPY, DIAGNOSTIC (WRVU 3.26) Scheduled Procedures Name Priority Associated Diagnoses Date/Ti co COLONOSCOPY, DIAGNOSTIC (WRVU 3.26) Procedure: Colonoscopy Indication: [...] vermiformis documented in this encounter Care Teams Head Of Research & Insights Relationship Specialty Start Date End Date Shruthi Arrington MD [address] [place] [address] PCP - General 05/06/10 06/24/23 documented as of this encounter
--- OUTSIDE RECORDS SUMMARY | 2024-01-26 03:09 | XMS_ITS | Encounter Summary ---
Author Organization [facility] Address [facility] [place] [address] Care Team Providers Care School Cleaner Name Role Phone Shruthi Arrington MD Primary Care Provider [phone] Encounter Details Date Type Department Care Team (Latest Contact Info) Description 04/30/2023 Travel Social History Tobacco Use Types Packs/Day [...] AM EDT Office Visit Hematology/Oncolog y at [address] [phone] Derek Lindquist MD [facility] [place] [address] Ann Tello APRN [address] [place] [address] DR HEMATOLOGY [place] [address] 03/24/2024 1:00 PM EDT Hospital Encounter [place] [address] Shilo Lopez MD [facility] [place] [address] 03/24/2024 1:00 PM EDT - 03/24/2024 1:45 PM EDT Surgery [place] [address] Shilo Lopez MD [facility] [place] [address] COLONOSCOPY, DIAGNOSTIC (WRVU 3.26) Scheduled Procedures Name [...] on filedocumented in this encounter Care Teams School Cleaner Relationship Specialty Start Date End Date Shruthi Arrington MD [address] [place] [id number] PCP - General 05/06/10 06/24/23 documented as of this encounter
--- OUTSIDE RECORDS SUMMARY | 2024-01-26 03:09 | XMS_ITS | Encounter Summary ---
Author Organization [facility] Address [facility] [place] [address] Care Team Providers Care Bid Clerk Name Role Phone SharicathydahliaHina Kay Primary Care Provider [phone] Reason for Visit * Reason Comments Genetic Evaluation * Consultation (Priority 1) - Closed Specialty Diagnoses / Procedures Referred By Macy jarquin Referred To Contact Genetics Diagnoses Adenocarcinoma, appendix Derek Lindquist MD [facility] [place] [address] [facility] [address] [address] [place] [address] Referral ID Status Reason Start Date Expiration Date V isits Requested Visits Authorized [id number] Closed Consult, Test & Treat 04/07/2023 04/06/2024 1 1 Encounter Details Date Type Department Care Team (Late st Contact Info) Description 06/30/2023 2:00 PM EST Visit (TeleHealth) Hematology [place] [address] Michelle Corona [facility] DR HEMATOLOGY [place] [address] Adenocarcinoma, appendix; Family history of malignant neoplasm of gastrointestinal tract; Personal history of colonic polyps; Family history of malignant neoplasm of breast Social History Tobacco Use Types Packs/Day Years [...] as of this encounter Progress Notes * Michelle Mclean LGC - 06/30/2023 2:00 PM EST Blanca Lujan was seen by APPLE Baer in consultation at the request of Derek Lindquist to advise regarding possible heritable predisposition to cancer. I spent 20 minutes of this video encounter with the patient gathering medical and family history and discussing the likelihood of a genetic predisposition to cancer and the option of genetic testing. Reason for referral/Chief complaint Personal history of appendiceal cancer and colonic polyps and family history of gastrointestinal cancer. Medical history Cancer hx and treatment: Blanca is 67 y.o. female with a recent diagnosis of adenocarcinoma of appendix/cecum (currently considered unresectable). She is undergoing neoadjuvant chemotherapy (started on 04/16/2023) with a plan to complete 8 cycles followed by restaging and re-evaluation for surgery. She is under the care of Dr. Derek Lindquist. 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 This variant has been found through germline testing as a pathogenic mutation at several genetic testing companies per the ClinVar database. 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 The first APC variant has not been previously reported through germline testing in the ClinVar database. The second APC variant has been previously reported through germline testing as a pathogenic mutation at several genetic testing companies in the ClinVar database. Current cancer screening: Blanca's colonoscopy on 11/06/2021 found and removed 12 polyps, all of which were found to be adenomatous. Blanca's most recent colonoscopy on 12/08/2022 found and removed 20+ polyps, all but two of which were found to be adenomatous. Family History of Cancer Problem Relation Age of Onset Cancer Father metastatic; unknown origin site Colon Polyps Father Colon Polyps Sister Cancer Brother eye cancer Breast Cancer Maternal Grandmother d.98 Brain Cancer Maternal Uncle 86 Colorectal Cancer Paternal Aunt Cancer Paternal Aunt Gastrointestinal cancer Colorectal Cancer Maternal Cousin There is no known Ashkenazi Shinto ancestry. Genetic risk assessment Based on personal and/or family history, the likelihood that Blanca would be found to have a mutation in a cancer predisposition gene is high enough to offer the option of genetic testing. Specifically, Blanca meets NCCN criteria for TP53 given the results of her somatic tumor testing which revealed a TP53 mutation at 60.4% VAF. Additionally, Blanca meets criteria for polyposis syndrome gene analysis based on her personal history of colon polyps and appendiceal/cecal cancer with APC variants foundat 22-26% VAF, as well as the family history of gastrointestinal cancer diagnosed in two paternal aunts. We discussed the purpose of testing such as the possibility of identifying additional screening and medical management recommendations, as well as identifying hereditary cancer risk for other family members. We discussed the lifetime cancer risks and medical management recommendations associated with mutations in the TP53 gene causing a condition known as Li Fraumeni Syndrome (LFS), including high-risk breast cancer screening with mammography and breast MRI's with consideration of prophylactic bilateral mastectomy is recommended for females with LFS. Colonoscopy and upper endoscopy every 2-5 years beginning at 25 years of age is recommended. Other cancer screening methods, including whole-body MRI are currently being evaluated for their use in individuals with LFS. We discussed the lifetime cancer risks and medical management recommendations associated with mutations in APC including colonoscopies every 1-2 years beginning in late teens with consideration of colectomy depending on polyp burden and upper endoscopy starting between ages 20-25 with frequency determined by family history and personal findings. Panel genetic testing for an inherited predisposition to cancer, including gastrointestinal cancer,was discussed. The risks, benefits and limitations of panel genetic testing were reviewed, specifically a high rate of identifying a variant of uncertain significance, lack of knowledge of cancer risk for newly identified, moderate risk genes included in the panel and lack of effective screening, as well as cancer risk for other cancers not observed in the family. We reviewed dominant inheritance, meaning that if a mutation is detected there is a 50% chance for Blanca's daughter and siblings to have also inherited the same gene alteration. The Genetic Information Nondiscrimination Act (BRETT) is a federal law prohibiting discrimination byhealth insurance companies and most employers based on genetic information. BRETT does not apply to life insurance, disability insurance or long-term care insurance. More information about BRETT may befound at GinaHelp.org. Blanca opted for testing with [employer] ([employer] CancerNext-Expanded Panel, a next generation sequencing panel that simultaneously analyzes 77 genes, including TP53 and APC, that contribute to increased risk for cancer. Blanca was verbally consented and will be sent consent forms via [employer] to review,sign, and return. Orders for the blood draw will be placed after signed consents are received. Her blood sample will be drawn in [facility] and sent to [employer] [facility] We reviewed [employer] billing policy. Blanca will be notified by text and/or email once [employer] completes their benefits investigation if her estimated out of pocket cost is over $100. At that time, if Blanca is concerned about the estimated test cost she will have the option to contact [employer] directly and either apply for [employer]'s patient assistance program to try and reduce cost of testing based on income information, cancel testing, or switch to a self-pay option of $250. If Blanca does not respond to [employer], testing will be billed to her insurance as the default option. Testing will take up to 3 weeks from when the lab receives the sample. Blanca will be contacted via telephone once her test results become available. At that time, we will discuss with Blanca the implications that this test result may have for her as well as her family members, review any recommendedscreening guidelines for cancer prevention and early detection, and answer any questions she may have. documented in this encounter Plan of Treatment Upcoming Encounters Date Type Department Care Team (Late st Contact Info) Description 01/28/2024 10:30 AM EDT Office Visit Hematology/Oncolog y at [address] [phone] Derek Lindquist MD [facility] [place] [address] Ann Tello APRN [address] [place] [address] [place] [address] 03/24/2024 1:00 PM EDT Hospital Encounter [place] [address] Shilo Lopez MD [facility] [place] [address] 03/24/2024 1:00 PM EDT - 03/24/2024 1:45 PM EDT Surgery [place] [phone] Shilo Lopez MD [facility] [place] [address] COLONOSCOPY, DIAGNOSTIC (WRVU 3.26) Scheduled Procedures Name [...] Associated Diagnoses Orde r Schedule Referral to Familial Cancer Outpatient Referral Routine Adenocarcinoma, appendix Ordered: 04/07/2023 documented as of this encounter Visit Diagnoses Diagnosis Adenocarcinoma, appendix Malignant neoplasm of appendix vermiformis Family history of malignant neoplasm of gastrointestinal tract Personal history of colonic polyps Family history of malignant neoplasm of breast documented in this encounter Care Teams Bid Clerk Relationship Specialty Start Date End Date Hina Johnson [address] [place] [address] PCP - General Family Medicine 06/25/23 documented as of this encounter
--- OUTSIDE RECORDS SUMMARY | 2024-01-26 03:09 | XMS_ITS | Encounter Summary ---
Author Organization [facility] [place] [address] Care Team Providers Care Clay Press Operator Name Role Phone Hina Johnson Primary Care Provider Encounter Details Date Type Department Care Team (Late Contact Info) Description 07/06/2023 Orders Only [place] [address] Michelle Corona [facility] [place] [address] Family history of malignant neoplasm of gastrointestinal tract; Overlapping malignant neoplasm of colon; Family history of other specified malignant neoplasm Social History Tobacco Use Types Packs/Day Years [...] AM EDT Office Visit Hematology/Oncolog y at [address] [phone] Derek Lindquist MD [facility] [place] [address] Ann Tello APRN [address] [place] [address] DR HEMATOLOGY AND ONCOLOGY [place], [place] [address] 03/24/2024 1:00 PM EDT Hospital [place] [address] Shilo Lopez MD [facility] [place] [address] 03/24/2024 1:00 PM EDT - 03/24/2024 1:45 PM EDT [place] [phone] Shilo Lopez MD [facility] [place] [address] COLONOSCOPY, DIAGNOSTIC (WRVU 3.26) Scheduled Orders Name Type Priority Associated Diagnoses Orde r Schedule Miscellaneous Lab request Lab Routine Family history of malignant neoplasm of gastrointestinal tract Overlapping malignant neoplasm of colon Family history of other specified malignant neoplasm Expected: 07/09/2023, Expires: 01/08/2024 Scheduled Procedures Name Priority Associated Diagnoses Date/Ti ms COLONOSCOPY, DIAGNOSTIC (WRVU 3.26) Procedure: Colonoscopy Indication: Malignant neoplasm of colon, unspecified part of colon and History of partial colectomy Sedation: IVCS Timeframe: within 2 weeks Specific provider: first available OV needed: No Anticoagulation status: no documented anticoagulation use 03/24/2024 1:00 PM EDT documented as of this encounter Visit Diagnoses Diagnosis Family history of malignant neoplasm of gastrointestinal tract Overlapping malignant neoplasm of colon Family history of other specified malignant neoplasm documented in this encounter Care Teams Clay Press Operator Relationship Specialty Start Date End Date Hina Johnson [address] [place] [address] PCP - General Family Medicine 06/25/23 documented as of this encounter
--- OUTSIDE RECORDS SUMMARY | 2024-01-26 03:09 | XMS_ITS | Encounter Summary ---
Author Organization [place] [address] Care Team Providers Care Professor Of Exercise Science Name Role Phone Shruthi Arrington MD Primary Care Provider [phone] Reason for Referral * Diagnostic Test (Routine) - Closed Specialty Diagnoses / Procedures Referred By Contac t Referred To Contact Radiology Diagnoses Malignant neoplasm of ascending colon Procedures CT Chest Abdomen Pelvis w Contrast (Generic) Derek Lindquist MD [facility] [place] [address] [facility] [place] [address] Referral ID Status Reason Start Date Expiration Date V isits Requested Visits Authorized [id number] Closed Specialty Service Requested 05/14/2023 11/12/2024 1 1 Reason for Visit * Diagnostic Test (Routine) - Closed Specialty Diagnoses / Procedures Referred By Contac t Referred To Contact Radiology Diagnoses Malignant neoplasm of ascending colon Procedures CT Chest Abdomen Pelvis w Contrast (Generic) Derek Lindquist MD [facility] [place] [address] [facility] [place] [address] Referral ID Status Reason Start Date Expiration Date V isits Requested Visits Authorized [id number] Closed Specialty Service Requested 05/14/2023 11/12/2024 1 1 Encounter Details Date Type Department Care Team (Latest Contact Info) Description 06/04/2023 12:28 PM EST - 06/04/2023 11:59 PM EST Hospital Encounter CT Scan at [facility] [place] [phone] Derek Lindquist MD [facility] [place] [address] Malignant neoplasm of ascending colon Discharge Disposition: [...] EDT Office Visit Hematology/Oncolog y at [address] [phone] Derek Lindquist MD [facility] [place] [address] Ann Tello, HEEL CASER [address] [place] [address] DR HEMATOLOGY AND ONCOLOGY [place], [place] [address] 03/24/2024 1:00 PM EDT Hospital Encounter [place] [phone] Shilo Lopez MD [facility] [place] [address] 03/24/2024 1:00 PM EDT - 03/24/2024 1:45 PM EDT Surgery [place] [phone] Shilo Lopez MD [facility] [place] [address] COLONOSCOPY, DIAGNOSTIC (WRVU 3.26) Scheduled Procedures Name [...] CHEST ABDOMEN PELVIS W CONTRAST (GENERIC) Routine 06/04/2023 3:21 PM EST Malignant neoplasm of ascending colon [...] who have questions please contact the health career placement specialist that requested your imaging first. ? Narrative [...] administration of contrast. Administered 98.0 ml of IWJMHXING649.00 mg/ml. Oral contrast was administered. COMPARISON: CT [...] patients who have questions please contactthe health career placement specialist that requested your imaging first. Derek Lindquist MD IMG CT ORDERABLES documented in this encounter Visit Diagnoses Diagnosis Malignant neoplasm of ascending colon documented in this encounter Administered Medications Inactive Administered Medications - up to 3 most recent administrations Medication Order MAR Action Action Date Dose Rate Site iohexoL (Omnipaque) (350 mg/mL) solution 0-200 mL 0-200 mL, Intravenous, ONCE PRN, 1 dose, Starting on Wed06/04/23 at 1459, Until Wed06/04/23 at 1521, Per Protocol, Warning Vesicant/Irritant Medication , Radiology Contrast, Routine Given 06/04/2023 3:21 PM EST 89 mLs iohexoL (Omnipaque) (350 mg/mL) solution 0-50 mL 0-50 mL, Oral, ONCE PRN, 1 dose, Starting on Wed06/04/23 at 1459, Until Wed06/04/23 at 1521, Per Protocol, Warning Vesicant/Irritant Medication , Radiology Contrast, Routine Given 06/04/2023 3:21 PM EST 50 mLs documented in this encounter Care Teams Professor Of Exercise Science Relationship Specialty Start Date End Date Shruthi Arrington MD [address] [place] [address] PCP - General 05/06/10 06/24/23 documented as of this encounter
--- OUTSIDE RECORDS SUMMARY | 2024-01-26 03:09 | XMS_ITS | Encounter Summary ---
Author Organization [facility] Address [facility] [place] [address] Care Team Providers Care Older Adult Social Work Specialist Name Role Phone Shruthi Arrington MD Primary Care Provider [phone] Encounter Details Date Type Department Care Team (Late st Contact Info) Description 04/30/2023 10:30 AM EST Office Visit Hematology/Oncology at [address] [phone] Derek Lindquist MD [facility] [place] [address] Ann Tello APRN [address] [place] [address] DR [place] [address] Adenocarcinoma of appendix; 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 Social History Tobacco Use Types Packs/Day Years [...] Sign Reading Time Taken Comments Blood Pressure 116/75 04/30/2023 10:37 AM EST Pulse 90 04/30/2023 10:37 AM EST Temperature 35.8 ??C (96.4 ??F) 04/30/2023 10:[address] Respiratory Rate 18 04/30/2023 10:37 AM EST Oxygen Saturation 97% 04/30/2023 10:37 AM EST Inhaled Oxygen Concentration - - Weight 86.9 kg (191 lb 9.6 oz) 04/30/2023 10:37 AM EST Height 158.4 cm (5' 2.36) 04/30/2023 10:[address] Body Mass Index 34.64 04/30/2023 10:37 AM EST documented in this encounter Progress Notes * Ann Tello APRN - 04/30/2023 10:30 AM EST Subjective Patient ID: Blanca [...] of acute diverticulitis 5. Fibroid uterus [place] - IMPRESSION 1. Unexpected findings [...] her daughter Kera. She is feeling fairly well. Her appetite is ok and her weight is stable. She did have some nausea and the oral antiemetics werenot very effective. She has been using stomach ease tea which has been helpful, and if not then marijuana has been helpful. No fevers or recent illnesses. Has been having a lot of gas, not painful orcramping. No Diarrhea. Some cold sensitivity neuropathy, resolved on it's own. Energy level is fair, fells like her battery gets used up quicker Soc Hx:Lives in [place], [place] Tob - Quit in 2010 Etoh [...] screening colonscopy for her siblings and daughter. Kear has already discussed this with her PCP. [...] Mood normal. ECOG PS - 1 BP 116/75 (Patient Position: Sitting) Pulse 90 Temp 35.8 ??C (96.4 ??F) (Temporal) Resp 18 Ht 158.4 cm (5' 2.36) Wt 86.9 kg (191 lb 9.6 oz) SpO2 97% BMI 34.64 kg/m?? Labs: WBC/ANC 7.07/3579, Hgb/Hct 13.4/38.6, Plts 250,000. BUN/Cr 16/0.8, glucose 114, Albumin 3.3, remainder of CMP otherwise unremarkable. CEA 04/30/23 pending 04/14/23 14.2 04/07/23 16.3 02/25/23 12.7 Assessment [...] Dr. Garcia feels this represents tumor. She began therapy with FOLFOX on 04/16/23 tolerating this fair. We discussed adding avastin, and information regarding potential side effects were reviewed. She and her daughter were also given printed information. If they are agreeable, we will add this for C3. She had an MRI of her abdomen, confirming stability of the lesion in the liver. We will continue tomonitor on CT scans, and can reconsider another MRI if needed. We have made a referral to the Familial Cancer Program due to concern for a polyposis syndrome, scheduling is pending. Plan: RTC - 2 weeks with labs and plans for C3, potentially with Avastin. 2. Plan to repeat imaging after C4. 3. Referral to Familial Cancer Program has been placed, scheduling pending. documented in this encounter Plan of Treatment Upcoming Encounters Date Type Department Care Team (Late st Contact Info) Description 01/28/2024 10:30 AM EDT Office Visit Hematology/Oncolog y at [address] [phone] Derek Lindquist MD [facility] [place] [address] Ann Tello APRN [address] [place] [address] DR HEMATOLOGY AND ONCOLOGY [place], [place] [address] 03/24/2024 1:00 PM EDT Hospital Encounter [place] [phone] Shilo Lopez MD [facility] [place] [place] [address] 03/24/2024 1:00 PM EDT - 03/24/2024 1:45 PM EDT Surgery [place] [phone] Shilo Lopez MD [facility] [place] [address] COLONOSCOPY, DIAGNOSTIC (WRVU 3.26) Scheduled Orders Name Type Priority Associated Diagnoses Orde r Schedule Urinalysis with reflex Culture Lab Routine 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 Once a week for 48 Occurrences starting 04/30/2023 until 04/30/2024 Scheduled Procedures Name Priority Associated Diagnoses Date/Ti me COLONOSCOPY, DIAGNOSTIC (WRVU 3.26) Procedure: Colonoscopy Indication: Malignant neoplasm of colon, unspecified part of colon and History of partial colectomy Sedation: IVCS Timeframe: within 2 weeks Specific provider: first available OV needed: No Anticoagulation status: no documented anticoagulation use 03/24/2024 1:00 PM EDT documented as of this encounter Visit Diagnoses 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
--- OUTSIDE RECORDS SUMMARY | 2024-01-26 03:09 | XMS_ITS | Encounter Summary ---
Author Organization [facility] Address [facility] [place] [address] Care Team Providers Care Powerbuilder Name Role Phone CristobalEliza Hina Primary Care Provider [phone] Reason for Visit * Reason Onset Date Comments Other 07/26/2023 Not feeling well Encounter Details Date Type Department Care Team (Late st Contact Info) Description 07/26/2023 Telephone Hematology/Oncology at [address] [phone] Altagracia Maldonado RN Other (Not feeling well) Social History Tobacco Use Types Packs/Day Years [...] encounter Miscellaneous Notes * Telephone Encounter - Altagracia Maldonado RN - 07/26/2023 3:04 PM EST Caller: Blanca Relationship: Self Clarified Two Patient Identifiers: [x] Diagnosis:appendix cancer Treatment: folfox # 7, 07/23/23 Reason for Call: I dont' feel well and I would like to know my tumor marker Assessment: Pt feeling very stuffed up, nauseated, she has not drank much fluids, not using antinausea medication, no bowel movement today Recommendations/Plan: Chaitanya Tello HEBREW CANTOR cea 3.3 reviewed with pt. Pt is to take compazine wait 30 minutes then push fluids like chicken noodle soup, gingerale, jello, popsicles, water. She is to go get miralax over the counter and take as directed for constipation. She is to take her temperature andif 100.4 F or greater to call us and head to local ER for workup of fever. She is to call back if things do not get better. Norma verbalized understanding of instructions and agreement with plan. Reminded Norma to call back with any questions/concerns. Select Specific Decision Support Tool Used: None available, provider to review Name of Guideline/Protocol Used: Yogi LAU. documented in this encounter Plan of Treatment Upcoming Encounters Date Type Department Care Team (Late st Contact Info) Description 01/28/2024 10:30 AM EDT Office Visit Hematology/Oncolog y at [address] [phone] Derek Lindquist MD [facility] [place] [address] Ann Tello APRN [address] [place] [address] DR HEMATOLOGY [place] [address] 03/24/2024 1:00 PM EDT Hospital Encounter [place] [phone] Shilo Lopez MD [facility] [place] [address] 03/24/2024 1:00 PM EDT - 03/24/2024 1:45 PM EDT Surgery [place] [phone] Shilo Lopez MD [facility] [place] [address] COLONOSCOPY, DIAGNOSTIC (WRVU 3.26) Scheduled Procedures Name [...] on filedocumented in this encounter Care Teams Powerbuilder Relationship Specialty Start Date End Date Hina Johnson [address] [place] [address] PCP - General Family Medicine 06/25/23 documented as of this encounter
--- OUTSIDE RECORDS SUMMARY | 2024-01-26 03:09 | XMS_ITS | Encounter Summary ---
Author Organization [facility] Address [facility] [place] [address] Care Team Providers Care Powder Blender Name Role Phone EloisaAlvaro Hina Primary Care Provider [phone] Reason for Visit * Reason Comments Chemotherapy [id number] * Treatment/Therapy Plan Authorization (Routine) - Pending Review Specialty Diagnoses / Procedures Referred By Contac t Referred To Contact Hematology and Oncology Diagnoses Adenocarcinoma, appendix Procedures TC PALONOSETRON HCL, 25MCG, INJECTION (ALOXI) TC OXALIPLATIN, 0.5MG, INJECTION (ELOXATIN) TC LEUCOVORIN CALCIUM, 50MG, INJECTION (WELLCOVORIN) TC FLOUROURACIL, 500MG FOLFOX J2469 ALOXI J0640 LEUCOVORIN J9263 OXALIPLATIN J9190 ADRUCIL Derek Lindquist MD [address] [place] [address] [place] [address] Derek Lindquist MD [address] [place] [address] [place] [address] Referral ID Status Reason Start Date Expiration Date V isits Requested Visits Authorized [id number] Pending Review 04/07/2023 04/06/2024 1 101 Encounter Details Date Type Department Care Team (Late st Contact Info) Description 06/25/2023 11:00 AM EST Infusion Hematology Oncology at [address] [phone] Adenocarcinoma, appendix Social History Tobacco Use Types [...] Sign Reading Time Taken Comments Blood Pressure 177/85 06/25/2023 11:15 AM EST Pulse 89 06/25/2023 11:15 AM EST Temperature 35.7 ??C (96.2 ??F) 06/25/2023 11:[address] Respiratory Rate 18 06/25/2023 11:15 AM EST Oxygen Saturation 99% 06/25/2023 11:15 AM EST Inhaled Oxygen Concentration - - Weight 89.6 kg (197 lb 9.6 oz) 06/25/2023 11:15 AM EST Height 158.4 cm (5' 2.36) 06/25/2023 11:[address] Body Mass Index 35.72 06/25/2023 11:15 AM EST documented in this encounter Progress Notes * Kim Scmhid RN - 06/25/2023 11:00 AM EST INFUSION THERAPY ADMINISTRATION NOTES DIAGNOSIS: cancer of appendix PROTOCOL:na CYCLE #: 5, day 1 REASON FOR VISIT: folfox SUBJECTIVE Blanca Lujna has no complaints. OBJECTIVE LAB DATA: Labs reviewed and found adequate for treatment. Pre administration: Chemotherapy orders independently verified for drug name, route, and dosage per patient's height, weight and BSA by Kim Schmid RN and staff pharmacists. HOME INFUSION - Connect Chemotherapy safety checks performed per protocol. Drug amount infused verified by double RN check after approximated 15 minutes and that adequate mLshad infused. Anticipated date/time of disconnect: 06/27/22 Plan for disconnect: home disconnect around 1245, kit provided REACTIONS (DESCRIPTION, TIME, INTERVENTION AND EFFECTIVENESS) none ASSESSMENT Blanca Lujan was awake, alert and he tolerated treatment well. PLAN Return to clinic per routine. documented in this encounter Plan of Treatment Upcoming Encounters Date Type Department Care Team (Late st Contact Info) Description 01/28/2024 10:30 AM EDT Office Visit Hematology/Oncolog y at [address] [phone] Derek Lindquist MD [facility] [place] [address] HEMATOLOGY AND ONCOLOGY [place], [place] [address] 03/24/2024 1:00 PM EDT Hospital En[place] [phone] Shilo Lopez MD [facility] [place] [address] 03/24/2024 1:00 PM EDT - 03/24/2024 1:45 PM EDT [place] [phone] Shilo Lopez MD [facility] [place] [address] COLONOSCOPY, DIAGNOSTIC (WRVU 3.26) Scheduled Procedures Name [...] 10 mg, Oral, ONCE, 1 dose, On Wed06/25/23 at 1145, Administer prior to chemotherapy, Routine Given 06/25/2023 12:01 PM EST 10 mg fluorouraciL (ADRUCIL) chemo injection 780 mg 780 mg (400 mg/m2/dose ? 1.95 m2 Treatment Plan BSA from Recorded weight), Intravenous, ONCE, 1 dose, On Wed06/25/23 at 1245, Administer over 5 Minutes, Warning Vesicant/Irritant Medication Given 06/25/2023 2:34 PM EST 780 mg 187.2 mL/hr fluorouraciL (AdruciL) in sodium chloride 0.9% 138 mL infusion (46 Hour - For Home Use) 4,680 mg 4,680 mg (2,400 mg/m2/dose ? 1.95 m2 Treatment Plan BSA from Recorded weight), Intravenous, ONCE, 1 dose, On Wed06/25/23 at 1415, Administer over 46 Hours, Warning Vesicant/Irritant Medication To be infused via an ambulatory infusion CADD Sanchez pump continuously IV at 3 mL/hr for 46 hours. Pump contains a 46 hour supply and provides a daily dose of 1,200 mg/m2/day = 2,400 mg/m2 IV over 46 hours. Given 06/25/2023 2:41 PM EST 4,680 mg 3 mL/hr leucovorin (Wellcovorin) 350 mg in dextrose 5% 85 mL infusion 350 mg, Intravenous, ONCE, 1 dose, On Wed06/25/23 at 1245, Administer over 85 Minutes, May Y-site with OXALIplatin Do not administer at a rate faster than 160 milligrams/minute. New Bag 06/25/2023 12:54 PM EST 350 mg 60 mL/hr OXALIplatin (Eloxatin) 166 mg in dextrose 5% 283.2 mL infusion 166 mg (rounded from 165.75 mg = 85 mg/m2/dose ? 1.95 m2 Treatment Plan BSA from Recorded weight), Intravenous, ONCE, 1 dose, On Wed06/25/23 at 1245, Administer over 85 Minutes, Compatible with dextrose-containing solution only. Warning Vesicant/Irritant Medication New Bag 06/25/2023 12:54 PM EST 166 mg 199.9 mL/hr palonosetron (Aloxi) (0.05 mg/mL) injection 0.25 mg 0.25 mg, Intravenous, ONCE, 1 dose, On Wed06/25/23 at 1145, Administer over 30 seconds. Administer prior to chemotherapy, Routine Given 06/25/2023 12:03 PM EST 0.25 mg documented in this encounter Care Teams Powder Blender Relationship Specialty Start Date End Date Hina Johnson [address] [place] [address] PCP - General Family Medicine 06/25/23 documented as of this encounter
--- OUTSIDE RECORDS SUMMARY | 2024-01-26 03:09 | XMS_ITS | Encounter Summary ---
Author Organization [facility] Address [facility] [place] [address] Care Team Providers Care Mineral Surveying Technician Name Role Phone Shruthi Arrington MD Primary Care Provider [phone] Encounter Details Date Type Department Care Team (Late st Contact Info) Description 04/18/2023 Telephone Hematology [place] [phone] Shaila Gee MD [facility] DR HEMATOLOGY/[place] [address] Social History Tobacco Use Types Packs/Day Years [...] encounter Miscellaneous Notes * Telephone Encounter - Shaila Gee MD - 04/18/2023 8:49 AM EST Blanca vicente. First cycle of FOLFOX on Monday 04/16. Was feeling flushed yesterday. She is feeling pukey this morning. She ate half of her breakfast. She took 1 compazine 10mg, 1 hour ago. It helped some, but she still feels nauseous. She is wondering if she can take another dose. She is on FOLFOX for unresectable colorectal cancer. Firstly, I advised her to wait for the 6 hour abhinav for the next compazine per Paras. Then, I noted she also received palonosetron on 04/16 at 12:15pm. I considered prescribing Zofran. By the time she takes this medication she will be 48 hours out from the palenosetron dose. The median half life for elimination in adults is ~40 hours. Time to peak of 5-6 hours on average. In my experience palonosetron is less effective at the 48 hour abhinav for many patients, likely due to differences in metabolism. She is not taking any other Qtc prolonging medications, and she does not have a cardiac history. She is very unlikely to exceed a safe dose of this medication with the 8mg PO Zofran. I discussed the risk/benefit with the patient. I let her know that some providers would advise to wait another 24 hours before taking Zofran due to the risk of prolonging QTC. Given ongoing symptoms and poor appetite without other cardiac risk factors, we felt in favor of prescribing. She expressed understanding and agreed with the plan. She will call us if any further questions or symptoms arise. Shaila Gee MD Heme/Onc Fellow 04/18/23 CC: CAROLYN Perez documented in this encounter Plan of Treatment Upcoming Encounters Date Type Department Care Team (Late st Contact Info) Description 01/28/2024 10:30 AM EDT Office Visit Hematology/Oncolog y at [address] [phone] Derek Lidnquist MD [facility] [place] [address] Ann Tello APRN [address] [place] [address] DR [place] [address] 03/24/2024 1:00 PM EDT Hospital Encounter [place] [address] Shilo Lopez MD [facility] [place] [address] 03/24/2024 1:00 PM EDT - 03/24/2024 1:45 PM EDT Surgery [place] [address] Shilo Lopez MD [facility] [place] [address] COLONOSCOPY, DIAGNOSTIC (WRVU 3.26) Scheduled Procedures Name [...] on filedocumented in this encounter Care Teams Mineral Surveying Technician Relationship Specialty Start Date End Date Shruthi Arrington MD [address] [place] [address] PCP - General 05/06/10 06/24/23 documented as of this encounter
--- OUTSIDE RECORDS SUMMARY | 2024-01-26 03:09 | XMS_ITS | Encounter Summary ---
Author Organization [facility] Address [facility] [place] [address] Care Team Providers Care Surgical Technician Name Role Phone Shruthi Arrington MD Primary Care Provider [phone] Encounter Details Date Type Department Care Team (Late st Contact Info) Description 06/11/2023 10:30 AM EST Office Visit Hematology/Oncology at [address] [phone] Derek Lindquist MD [facility] [place] [place] [address] Ann Tello APRN [address] [place] [address] DR HEM[place]OLOGY [place] [address] Adenocarcinoma, appendix Social History Tobacco [...] Sign Reading Time Taken Comments Blood Pressure 180/89 06/11/2023 10:36 AM EST Pulse 97 06/11/2023 10:36 AM EST Temperature 36.4 ??C (97.5 ??F) 06/11/2023 1 0:36 AM EST Respiratory Rate 18 06/11/2023 10:3 6 AM EST Oxygen Saturation 99% 06/11/2023 10: 36 AM EST Inhaled Oxygen Concentration - - Weight 89.7 kg (197 lb 11.2 oz) 023 10:36 AM EST Height 158.4 cm (5' 2.36) 06/11/2023 1 0:36 AM EST Body Mass Index 35.74 06/11/2023 10:36 AM EST documented in this encounter Progress Notes * Derek Lindquist MD - 06/11/2023 10:30 AM EST Subjective Patient ID: Blanca [...] evidence of acute diverticulitis 5. Fibroid uterus ([facility] second read) - IMPRESSION 1. [...] AM. No diarrhea. She is leaving for [place] tomorrow and looking forward to being therapy for two weeks. She is having hair thinning. Soc Hx:Lives in [place], [place] Tob - Quit in 2010 Etoh [...] 1 Labs: WBC/ANC - 7., Hgb/Hct - 13.1/38.3, Plts - 156,000. BUN/Cr - 15/0.9. Glucose - 135. Lytes and LFTs o/w unremarkable. CEA 06/11/23 5.7 05/27/23 4.5 05/13/23 6.2 04/29/23 [...] began therapy with Folfox and has received 4 cycles. She has tolerated therapy pretty well. [...] consider resection. I communicated with Dr. Garcia. Our plan at this time is for 4 more cycles followed by restaging and re-evaluation for surgery. documented in this encounter Plan of Treatment Upcoming Encounters Date Type Department Care Team (Late st Contact Info) Description 01/28/2024 10:30 AM EDT Office Visit Hematology/Oncolog y at [address] [phone] Derek Lindquist MD [facility] [place] [address] Ann Tello APRN [address] [place] [address] DR HEMATOLOGY [place] [address] 03/24/2024 1:00 PM EDT Hospital Encounter [place] [phone] Shilo Lopez MD [facility] [place] [address] 03/24/2024 1:00 PM EDT - 03/24/2024 1:45 PM EDT Surgery [place] [phone] Shilo Lopez MD [facility] [place] [address] COLONOSCOPY, DIAGNOSTIC (WRVU 3.26) Scheduled Procedures Name [...] vermiformis documented in this encounter Care Teams Surgical Technician Relationship Specialty Start Date End Date Shruthi Arrington MD [address] [place] [address] PCP - General 05/06/10 06/24/23 documented as of this encounter
--- OUTSIDE RECORDS SUMMARY | 2024-01-26 03:09 | XMS_ITS | Encounter Summary ---
Author Organization [facility] [place] [address] Care Team Providers Care Pad Making Machine Operator Name Role Phone Shruthi Arrington MD Primary Care Provider [phone] Encounter Details Date Type Department Care Team (Latest Contact Info) Description 04/14/2023 3:29 PM EDT - 04/14/2023 11:59 PM EDT Hospital Encounter [place] [phone] Adenocarcinoma, appendix; Malignant neoplasm of overlapping sites [...] Sig Dispensed Refills Start Date End Date cholecalciferol, Vitamin D3, (Vitamin D3) 50 mcg [...] 2 tablets by mouth daily. 03/30/2023 10/28/2023 Magnesium Gluconate 27 mg magnesium (500 mg) Tablet Take 500 mg by mouth. 05/25/20222022 Acetylcysteine (NAC) 600 mg capsule 600 mg. 11/07/2021 09/28/2023 documented as of this encounter Progress Notes * Theresa Guerrier RN - 04/14/2023 3:41 PM EDT Patient Name: Blanca Lujan Patient Age: 67 y.o. Birthdate: 1955 Admit date: 04/14/2023 Attending Physician: Jeannie att. providers found Access visit. See MAR and/or flowsheet. documented in this encounter Plan of Treatment Upcoming Encounters Date Type Department Care Team (Late st Contact Info) Description 01/28/2024 10:30 AM EDT Office Visit Hematology/Oncolog y at [address] [phone] Derek Lindquist MD [facility] [place] [address] Ann Tello, [address] [place] [address] 03/24/2024 1:00 PM EDT Hospital En[place] [phone] Shilo Lopez MD [facility] [place] [address] 03/24/2024 1:00 PM EDT - 03/24/2024 1:45 PM EDT [place] [phone] Shilo Lopez MD [facility] [place] [address] COLONOSCOPY, DIAGNOSTIC (WRVU 3.) Scheduled Procedures Name Priority Associated Diagnoses Date/Ti nd COLONOSCOPY, DIAGNOSTIC (WRVU 3.) Procedure: Colonoscopy Indication: Malignant neoplasm of colon, [...] of large intestine documented in this encounter Administered Medications Inactive Administered Medications - up to 3 most recent administrations Medication Order MAR Action Action Date Dose Rate Site heparin (pf) (porcine) (100 units/mL) flush 5 mL syringe 500 Units 500 Units, Intravenous, ONCE PRN, Starting on Wed04/14/23 at 1544, Until Jaelyn 04/15/23 at 0433, Line Care, Routine Given 04/14/2023 3:45 PM EDT 500 Units sodium chloride 0.9 % (flush) (BD PosiFlush Normal Saline 0.9) flush 10-20 mL 10-20 mL, Intravenous, ONCE, 1 dose, On Wed04/14/23 at 1600, Routine Given 04/14/2023 3:44 PM EDT 20 mLs documented in this encounter Care Teams Pad Making Machine Operator Relationship Specialty Start Date End Date Shruthi Arrington MD [address] [place] [address] PCP - General 05/06/10 06/24/23 documented as of this encounter
--- OUTSIDE RECORDS SUMMARY | 2024-01-26 03:09 | XMS_ITS | Encounter Summary ---
Author Organization [facility] Address [facility] [place] [address] Care Team Providers Care Inspector Toys Name Role Phone Shruthi Arrington MD Primary Care Provider [phone] Encounter Details Date Type Department Care Team (Latest Contact Info) Description 04/16/2023 Travel Social History Tobacco Use Types Packs/Day [...] AM EDT Office Visit Hematology/Oncolog y at [address] [phone] Derek Lindquist MD [facility] [place] [address] Ann Tello APRN [address] [place] [address] [place] [address] 03/24/2024 1:00 PM EDT Hospital Encounter [place] [address] Shilo Lopez MD [facility] [place] [address] 03/24/2024 1:00 PM EDT - 03/24/2024 1:45 PM EDT Surgery [place] [address] Shilo Lopez MD [facility] [place] [address] COLONOSCOPY, DIAGNOSTIC (WRVU 3.26) Scheduled Procedures Name [...] on filedocumented in this encounter Care Teams Inspector Toys Relationship Specialty Start Date End Date Shruthi Arrington MD [address] [place] [address] PCP - General 05/06/10 06/24/23 documented as of this encounter
--- OUTSIDE RECORDS SUMMARY | 2024-01-26 03:09 | XMS_ITS | Encounter Summary ---
Author Organization [facility] Address [facility] [place] [address] Care Team Providers Care White Mixing Operator Name Role Phone Shruthi Arrington MD Primary Care Provider [phone] Encounter Details Date Type Department Care Team (Late Contact Info) Description 04/14/2023 Orders Only Hematology [place] [address] Derek Lindquist MD [facility] [place] [address] Adenocarcinoma of appendix Social History Tobacco Use [...] AM EDT Office Visit Hematology/Oncolog y at [address] [phone] Derek Lindquist MD [facility] [place] [address] Ann Tello APRN [address] [place] [address] DR HEMATOLOGY [place] [address] 03/24/2024 1:00 PM EDT Hospital Encounter [place] [address] Shilo Lopez MD [facility] [place] [address] 03/24/2024 1:00 PM EDT - 03/24/2024 1:45 PM EDT Surgery [place] [phone] Shilo Lopez MD [facility] [place] [address] COLONOSCOPY, DIAGNOSTIC (WRVU 3.26) Scheduled Procedures Name Priority Associated Diagnoses Date/Ti me COLONOSCOPY, DIAGNOSTIC (WRVU 3.26) Procedure: Colonoscopy Indication: Malignant neoplasm of colon, unspecified part of colon and History of partial colectomy Sedation: IVCS Timeframe: within 2 weeks Specific provider: first available OV needed: No Anticoagulation status: no documented anticoagulation use 03/24/2024 1:00 PM EDT documented as of this encounter Results * (ABNORMAL) CEA (04/14/2023 3:49 PM EDT) Carcinoembryonic Antigen 14.2(H) <=3.8 ng/mL [facility] Comment: Reference range: ??(20-69 years): Non-smoker: ??less than or equal to 3.8 ng/mL Smoker: ??less than 5.5 ng/ml This result was generated using a Steven Grisel immunoassay. ??Results obtained from other methods or manufacturers cannot be used interchangeably with this method. Blood 04/14/2023 3:49 PM EDT 04/14/2023 3:49 PM EDT Narrative Resulting Agency Comment Spec In Lab Derek Lindquist MD CHEMISTRY ORDERABLES [facility] [place] [address] * (ABNORMAL) Comprehensive metabolic panel (non-fasting) (04/14/2023 3:49 PM EDT) Glucose 125 65 - 199 mg/dL [facility] Comment:Diabetes: >=200 mg/d L plus symptoms Blood Urea Nitrogen 15 8 - 18 mg/dL [facility] Creatinine 0.68(L) 0.70 - 1.20 mg/dL [facility] Sodium 137 135 - 145 mmol/L [facility] Potassium 4.1 3.5 - 5.0 mmol/L [facility] Comment: Please note: ??Patients with WBC >100,000 may have falsely elevated Potassium levels. ??For accurate Potassium quantification in these patients send serum separator tube (gold top) for subsequent determinations. ??Contact the Clinical Chemistry Laboratory if there are any questions. Chloride 101 98 - 107 mmol/L [facility] Carbon Dioxide 27 22 - 31 mmol/L [facility] Anion Gap 9 5 - 15 mmol/L [facility] Calcium 8.7 8.5 - 10.5 mg/dL [facility] Protein, Total 6.6 6.1 - 8.0 g/dL [facility] Albumin 3.9 3.2 - 5.2 g/dL [facility] Aspartate Aminotransferase 16 0 - 30 unit/L [facility] Alanine Aminotransferase 14 0 - 30 unit/L [facility] Alkaline Phosphatase 70 35 - 105 unit/L [facility] Bilirubin, Total 0.3 0.2 - 1.3 mg/dL [facility] Est Glomerular Filtration Rate 97 >=60 mL/min/1. 73 m?? [facility] Comment: This patient's estimated GFR [...] and symptoms in addition to eGFR. 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
--- OUTSIDE RECORDS SUMMARY | 2024-01-26 03:09 | XMS_ITS | Encounter Summary ---
Author Organization [facility] [place] [address] Care Team Providers Care Honey Processor Name Role Phone Shruthi Arrington MD Primary Care Provider [phone] Reason for Referral * Consultation (Routine) - Duplicate Referral Specialty Diagnoses / Procedures Referred By Macy jraquin Referred To Contact Genetics Diagnoses Adenocarcinoma of appendix Derek Concepcion MD [facility] [place] [address] [facility] [address] [place] [address] Referral ID Status Reason Start Date Expiration Date Visits Requested Visits Authorized [id number] Duplicate Referral Consult, Test & Treat 04/16/2023 04/15/2024 1 1 Encounter Details Date Type Department Care Team (Late st Contact Info) Description 04/16/2023 10:30 AM EDT Office Visit Hematology/Oncology at [address] [phone] Derek Concepcion MD [facility] [place] [address] Ann Tello APRN [address] [place] [address] DR HEMATOLOGY AND ONCOLOGY [place], [place] [id number] Adenocarcinoma of appendix; Drug-induced nausea and vomiting Social History Tobacco Use Types Packs/Day Years [...] Sign Reading Time Taken Comments Blood Pressure 154/90 04/16/2023 10:23 AM EDT Pulse 86 04/16/2023 10:23 AM EDT Temperature 36.3 ??C (97.3 ??F) 04/16/2023 10:23 AM E DT Respiratory Rate 18 04/16/2023 10:23 AM EDT Oxygen Saturation 99% 04/16/2023 10:23 AM EDT Inhaled Oxygen Concentration - - Weight 86.4 kg (190 lb 6.4 oz) 04/16/2023 10:23 AM EDT Height 158.4 cm (5' 2.36) 04/16/2023 10:23 AM E DT Body Mass Index 34.42 04/16/2023 10:23 AM EDT documented in this encounter Progress Notes * Derek Concepcion MD - 04/16/2023 10:30 AM EDT Subjective Patient ID: Blanca Lujan [...] evidence of acute diverticulitis 5. Fibroid uterus ([facility] second read) - IMPRESSION 1. Unexpected findings [...] indeterminant. Recommend attention on follow-up. MRI abd scheduled on 04/30/23 2. Anxiety and depression 3. PTSD 4. ADHD 5. ZARA 6. 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 The history is summarized above. Blanca is accompanied to clinic today by her daughter Kera. She is feeling fairly well. The mediport site is a little sore. There is a dressing in place and she has some itching. Her appetite is ok and her weight is stable. She says she is not particularly active and struggles with depression. She manages well but is going to move in with Kera during chemotherapy. If she lifts something, she hasdiscomfort in the right groin area. Eating the wrong thing also seems to make it worse. Her appetite is good and her weight is stable. No symptoms of neuropathy. No fevers or chills. Soc Hx:Lives in [place], [place] Tob - Quit in 2010 Etoh - [...] ECOG PS - 1 Labs: WBC/ANC - , Hgb/Hct - , Plts - . BUN/Cr - . Lytes and LFTs Latest Reference Range & Units 04/14/23 15:49 WBC 4.0 - 9.5 x10(3)/mcL 7.9 RBC 4.00 - 5.21 x10(6)/mcL 4.58 Hemoglobin 11.7 - 15.5 g/dL 13.5 Hematocrit 35.7 - 45.8 % 38.3 MCV 82.6 - 94.4 fL 83.6 MCH 27.1 - 32.0 pg 29.5 MCHC 31.7 - 35.0 g/dL 35.2 (H) RDWSD 37.0 - 46.0 fL 37.7 RDWCV 11.5 - 14.1 % 12.5 Platelets 145 - 357 x10(3)/mcL 229 MPV 7.6 - 12.9 fL 9.9 nRBC % Auto % 0.0 nRBC Abs Auto 0.000 - 0.000 x10(3)/mcL 0.000 Neutr Abs (ANC) 1.70 - 6.10 x10(3)/mcL 4.45 Neutrophils % % 56.6 Immature Gran % % 0.40 Lymphocytes % % 28.9 Monocytes % % 8.9 Eosinophils % % 4.2 Basophils % % 1.0 Nini Gran Abs 0.00 - 0.04 x10(3)/mcL 0.03 Lymphocytes Abs 0.9 - 3.2 x10(3)/mcL 2.3 Monocyte Abs 0.3 - 0.9 x10(3)/mcL 0.7 Eosinophils Abs 0.0 - 0.4 x10(3)/mcL 0.3 Basophils Abs 0.0 - 0.1 x10(3)/mcL 0.1 Sodium 135 - 145 mmol/L 137 Potassium 3.5 - 5.0 mmol/L 4.1 Chloride 98 - 107 mmol/L 101 CO2 22 - 31 mmol/L 27 Anion Gap 5 - 15 mmol/L 9 BUN 8 - 18 mg/dL 15 Creatinine 0.70 - 1.20 mg/dL 0.68 (L) Estimated GFR >=60 mL/min/1.73 m?? 97 Calcium 8.5 - 10.5 mg/dL 8.7 Glucose Lvl 65 - 199 mg/dL 125 Total Protein 6.1 - 8.0 g/dL 6.6 Albumin 3.2 - 5.2 g/dL 3.9 Total Bilirubin 0.2 - 1.3 mg/dL 0.3 Alk Phos 35 - 105 unit/L 70 AST 0 - 30 unit/L 16 ALT 0 - 30 unit/L 14 CEA <=3.8 ng/mL 14.2 (H) (H): Data is abnormally high (L): Data is abnormally low CEA 04/14/23 14.2 04/07/23 16.3 02/25/23 12.7 Assessment [...] adenocarcinoma, MMR intact. NGS has been requested. I spoke with Dr. Garcia on 04/07/23. [...] count andDrTerrie Garcia feels this represents tumor. She is here to start therapy with Folfox. We have reviewed the schedule of therapy and potential side effects. I am not planning to give avastin with the first cycle but would consider adding it. She appears to be eligible for a clinical trial [id number] - Adaptive, Individualized Dose Escalationof Fluorouracil-Based Chemotherapy for Gastrointestinal Cancer: Note Keeper Study of the PALACIOS Regimen. We reviewed again the rationale for this study and she has looked over the informed consent form. She has decided that she does not want to proceed with enrollment. She says this is because she generallydoesn't tolerate . We have made a referral to the Familial Cancer Program due to concern for a polyposis syndrome. Plan: She has decided not to enroll on the Palacios Trial Proceed with cycle 1 Folfox today, 04/16/23, off study 3. RTC - 2 weeks with labs and plans for chemotherapy 4. MRI abd to evaluate liver lesion 5. Referral to Familial Cancer Program documented in this encounter Miscellaneous Notes * Addendum Note - Derek Concepcion MD - 04/16/2023 10:30 AM EDTAddended by: DEREK CONCEPCION on: 04/16/2023 12:06 PM Modules accepted: Orders documented in this encounter Plan of Treatment Upcoming Encounters Date Type Department Care Team (Late st Contact Info) Description 01/28/2024 10:30 AM EDT Office Visit Hematology/Oncolog y at [address] [phone] Derek Concepcion MD [facility] [place] [address] Ann Tello APRN [address] [place] [address] DR [place] [address] 03/24/2024 1:00 PM EDT Hospital Encounter [place] [phone] Shilo Lopez MD [facility] [place] [address] 03/24/2024 1:00 PM EDT - 03/24/2024 1:45 PM EDT [place] [phone] Shilo Lopez MD [facility] [place] [address] COLONOSCOPY, DIAGNOSTIC (WRVU 3.26) Scheduled Procedures Name [...] Referral to Familial Cancer Outpatient Referral Routine Adenocarcinoma of appendix Ordered: 04/16/2023 documented as of this encounter Visit Diagnoses 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
--- OUTSIDE RECORDS SUMMARY | 2024-01-26 03:09 | XMS_ITS | Encounter Summary ---
Author Organization [facility] Address [facility] [place] [address] Care Team Providers Care Front Office Director Name Role Phone Shruthi Arrington MD Primary Care Provider [phone] Encounter Details Date Type Department Care Team (Late st Contact Info) Description 04/14/2023 9:35 AM EDT Laboratory Appointment Lab [address] [place] [address] Social History Tobacco Use Types Packs/Day Years [...] AM EDT Office Visit Hematology/Oncolog y at [address] [phone] Derek Lindquist MD [facility] [place] [address] Ann Tello APRN [address] [place] [address] DR HEMATOLOGY AND ONCOLOGY [place], [place] [address] 03/24/2024 1:00 PM EDT Hospital Encounter [place] [address] Shilo Lopez MD [facility] [place] [address] 03/24/2024 1:00 PM EDT - 03/24/2024 1:45 PM EDT Surgery [place] [address] Shilo Lopez MD [facility] [place] [address] COLONOSCOPY, DIAGNOSTIC (WRVU 3.26) Scheduled Procedures Name [...] on filedocumented in this encounter Care Teams Front Office Director Relationship Specialty Start Date End Date Shruthi Arrington MD [address] [place] [address] PCP - General 05/06/10 06/24/23 documented as of this encounter
--- OUTSIDE RECORDS SUMMARY | 2024-01-26 03:09 | XMS_ITS | Encounter Summary ---
Author Organization [facility] Address [facility] [place] [address] Care Team Providers Care Flow Worker Name Role Phone Shruthi Arrington MD Primary Care Provider [phone] Encounter Details Date Type Department Care Team (Latest Contact Info) Description 04/28/2023 6:21 AM EST - 04/28/2023 11:59 PM EST [place] [phone] Discharge Disposition: Home Social History Tobacco Use [...] mg) Tablet Take 500 mg by mouth. 05/25/2022 05/20/2023 Acetylcysteine (NAC) 600 mg capsule 600 mg. 11/07/2021 09/28/2023 documented as of this encounter Plan of Treatment Upcoming Encounters Date Type Department Care Team (Late st Contact Info) Description 01/28/2024 10:30 AM EDT Office Visit Hematology/Oncolog y at [address] [phone] Derek Lindquist MD [facility] [place] [place] [address] Ann Tello APRN [address] [place] [address] [place] [address] 03/24/2024 1:00 PM EDT Hospital Encounter [place] [phone] Shilo Lopez MD [facility] [place] [address] 03/24/2024 1:00 PM EDT - 03/24/2024 1:45 PM EDT Surgery [place] [phone] Shilo Lopez MD [facility] [place] [address] COLONOSCOPY, DIAGNOSTIC (WRU 3.26) Scheduled Procedures Name Priority Associated Diagnoses [...] on filedocumented in this encounter Care Teams Flow Worker Relationship Specialty Start Date End Date Shruthi Arrington MD [address] [place] [address] PCP - General 05/06/10 06/24/23 documented as of this encounter
--- OUTSIDE RECORDS SUMMARY | 2024-01-26 03:09 | XMS_ITS | Encounter Summary ---
Author Organization Formerly [facility] [place] [address] Care Team Providers Care Plate And Frame Filter Operator Name Role Phone Shruthi Arrington MD Primary Care Provider [phone] Reason for Visit * Reason Onset Date Comments Prior Authorization 05/04/2023 EMLA Encounter Details Date Type Department Care Team (Late Contact Info) Description 05/04/2023 Telephone Hematology/Oncology at [address] [phone] Cherie Boyd RN Prior Authorization (EMLA ) Social History Tobacco Use Types Packs/Day [...] Miscellaneous Notes * Telephone Encounter - Cherie Boyd RN - 05/04/2023 2:57 PM EST PA for EMLA cream submitted via CoverMyMeds, takes up to 3 days for determination to be made. documented in this encounter Plan of Treatment Upcoming Encounters Date Type Department Care Team (Late Contact Info) Description 01/28/2024 10:30 AM EDT Office Visit Hematology/Oncolog y at [address] [phone] Derek Lindquist MD [facility] [place] [address] Ann Tello [address] HEMATOLOGY [place] [address] 03/24/2024 1:00 PM EDT Hospital Encounter Gastroenterology at [place] [phone] Shilo Lopez MD [facility] [place] [address] 03/24/2024 1:00 PM EDT - 03/24/2024 1:45 PM EDT Surgery [place] [phone] Shilo Lopez MD [facility] [place] [address] COLONOSCOPY, DIAGNOSTIC (WRVU 3.26) Scheduled Procedures Name [...] on filedocumented in this encounter Care Teams Plate And Frame Filter Operator Relationship Specialty Start Date End Date Shruthi Arrington MD [address] [place], [place] [address] PCP - General 05/06/10 06/24/23 documented as of this encounter
--- OUTSIDE RECORDS SUMMARY | 2024-01-26 03:09 | XMS_ITS | Encounter Summary ---
Author Organization [facility] Address [facility] [place] [address] Care Team Providers Care Director Of Clinical Trials Name Role Phone EloisaAlvaro Hina Primary Care Provider [phone] Reason for Visit * Reason Comments Chemotherapy [...] J9263 OXALIPLATIN J9190 ADRUCIL Derek Lindquist MD [address] [place] [address] [place] [address] Derek Lindquist MD [address] [place] [address] [place] [address] Referral ID Status Reason Start Date Expiration Date V isits Requested Visits Authorized [id number] Pending Review 04/07/2023 04/06/2024 1 101 Encounter Details Date Type Department Care Team (Late st Contact Info) Description 07/23/2023 10:30 AM EST Infusion Hematology Oncology at [address] [phone] Adenocarcinoma, appendix Social History Tobacco Use Types [...] Sign Reading Time Taken Comments Blood Pressure 154/81 07/23/2023 10:24 AM EST Pulse 95 07/23/2023 10:24 AM EST Temperature 35.9 ??C (96.6 ??F) 07/23/2023 10:[address] Respiratory Rate 18 07/23/2023 10:24 AM EST Oxygen Saturation 99% 07/23/2023 10:24 AM EST Inhaled Oxygen Concentration - - Weight 88.6 kg (195 lb 6.4 oz) 07/23/2023 10:24 AM EST Height 158.4 cm (5' 2.36) 07/23/2023 10:[address] Body Mass Index 35.33 07/23/2023 10:24 AM EST documented in this encounter Progress Notes * Darren Barton RN - 07/23/2023 10:30 AM EST INFUSION THERAPY ADMINISTRATION NOTES DIAGNOSIS: GI Colorectal CA CYCLE #: Day 1 Cycle 7 REASON FOR VISIT: FOLFOX infusion and initiation of continunous home 5FU infusion via CADD pump provided by [employer] SUBJECTIVE Blanca offers no complaints. OBJECTIVE LAB DATA: Labs reviewed and found adequate for treatment. Pre administration: Chemotherapy orders independently verified for drug name, route, and dosage per patient's height, weight and BSA by iKm Giordano RN, RN, and Pharm Shruthi. WBC 7.23; PLT 159; ANC 4.09; BUN 15; Creat 0.8 At time of administration Patient identity verified using patient's name and date of at the chair/bedside by double RN check just prior to initiating the patient's home infusion chemotherapy via CADD pump provided by [employer]. Fluorouracil 4680 mg over 46 hours, IV [...] EDT Office Visit Hematology/Oncolog y at [address] [phone] [facility] [place] [address] Ann Tello APRN [address] [place] [address] DR HEMATOLOGY [place] [address] 03/24/2024 1:00 PM EDT Hospital Encounter [place] [phone] [facility] [place] [address] 03/24/2024 1:00 PM EDT - 03/24/2024 1:45 PM EDT Surgery [place] [phone] [facility] [address] COLONOSCOPY, DIAGNOSTIC (WRVU 3.26) Scheduled Procedures Name [...] 10 mg, Oral, ONCE, 1 dose, On Wed07/23/23 at 1115, Administer prior to chemotherapy, Routine Given 07/23/2023 11:12 AM EST 10 mg fluorouraciL (ADRUCIL) chemo injection 780 mg 780 mg (400 mg/m2/dose ? 1.95 m2 Treatment Plan BSA from Recorded weight), Intravenous, ONCE, 1 dose, On Wed07/23/23 at 1215, Administer over 5 Minutes, Warning Vesicant/Irritant Medication Given 07/23/2023 2:11 PM EST 780 mg 187.2 mL/hr fluorouraciL (AdruciL) in sodium chloride 0.9% 138 mL infusion (46 Hour - For Home Use) 4,680 mg 4,680 mg (2,400 mg/m2/dose ? 1.95 m2 Treatment Plan BSA from Recorded weight), Intravenous, ONCE, 1 dose, On Wed07/23/23 at 1345, Administer over 46 Hours, Warning Vesicant/Irritant Medication To be infused via an ambulatory infusion CADD Sanchez pump continuously IV at 3 mL/hr for 46 hours. Pump contains a 46 hour supply and provides a daily dose of 1,200 mg/m2/day = 2,400 mg/m2 IV over 46 hours. Given 07/23/2023 2:24 PM EST 4,680 mg 3 mL/hr leucovorin (Wellcovorin) 350 mg in dextrose 5% 85 mL infusion 350 mg, Intravenous, ONCE, 1 dose, On Wed07/23/23 at 1215, Administer over 85 Minutes, May Y-site with OXALIplatin Do not administer at a rate faster than 160 milligrams/minute. New Bag 07/23/2023 12:05 PM EST 350 mg 60 mL/hr OXALIplatin (Eloxatin) 166 mg in dextrose 5% 283.2 mL infusion 166 mg (rounded from 165.75 mg = 85 mg/m2/dose ? 1.95 m2 Treatment Plan BSA from Recorded weight), Intravenous, ONCE, 1 dose, On Wed07/23/23 at 1215, Administer over 85 Minutes, Compatible with dextrose-containing solution only. Warning Vesicant/Irritant Medication New Bag 07/23/2023 12:05 PM EST 166 mg 199.9 mL/hr palonosetron (Aloxi) (0.05 mg/mL) injection 0.25 mg 0.25 mg, Intravenous, ONCE, 1 dose, On Wed07/23/23 at 1115, Administer over 30 seconds. Administer prior to chemotherapy, Routine Given 07/23/2023 11:12 AM EST 0.25 mg documented in this encounter Care Teams Director Of Clinical Trials Relationship Specialty Start Date End Date Hina Johnson [address] [place] [address] PCP - General Family Medicine 06/25/23 documented as of this encounter
--- OUTSIDE RECORDS SUMMARY | 2024-01-26 03:09 | XMS_ITS | Encounter Summary ---
Author Organization [facility] Address [facility] [place] [address] Care Team Providers Care Catalyst Operator Chief Name Role Phone Shruthi Arrington MD Primary Care Provider [phone] Reason for Visit * Reason Comments Chemotherapy [...] J9263 OXALIPLATIN J9190 ADRUCIL Derek Lindquist MD [address] [place] [address] [place] [address] Derek Lindquist MD [address] [place] [address] [place] [address] Referral ID Status Reason Start Date Expiration Date V isits Requested Visits Authorized [id number] Pending Review 04/07/2023 04/06/2024 1 101 Encounter Details Date Type Department Care Team (Late st Contact Info) Description 04/16/2023 11:00 AM EDT Infusion Hematology Oncology at [address] [phone] Adenocarcinoma, appendix Social History Tobacco Use Types [...] as of this encounter Progress Notes * Mavis Cortes, RN - 04/16/2023 11:00 AM EDT Blanca Lujan, 67 y.o. female with diagnosis of colorectal cancer is here for chemotherapy infusion of FOLFOX. PROTOCOL: na CYCLE: 1 DAY: 1 S: Pt. offers no complaints at this time. Reviewed plan of care for infusion visit, patient verbalized understanding of plan as outlined. O: Chemotherapy orders independently verified for correct drug name, route and dosage per patient'sheight, weight and BSA by MAVIS CORTES RN, RN and onsite pharmacist. REACTIONS (DESCRIPTION, TIME, INTERVENTION AND EFFECTIVENESS) none A: Pt. Tolerated treatment well. Blanca Lujan confirms that all questions and issues have been addressed. P: Return to clinic as planned. HOME INFUSION - Connect Fluorouracil (5-FU) DOSE: 4680mg over 46hrs RATE: 3 mL/hr ROUTE: IV START TIME: 1435 Chemotherapy safety checks performed per protocol with Mavis Cortes RN. Drug amount infused verified by RN double check after 15 minutes and that the appropriate amount had infused. Anticipated date/time of disconnect:04/18/23 @ 1235 Plan for disconnect: ([facility]) documented in this encounter Plan of Treatment Upcoming Encounters Date Type Department Care Team (Late st Contact Info) Description 01/28/2024 10:30 AM EDT Office Visit Hematology/Oncolog y at [address] [phone] Derek Lindquist MD [facility] [place] [address] Ann Tello APRN [address] [place] [address] [place] [address] 03/24/2024 1:00 PM EDT Hospital En[place] [address] Shilo Lopez MD [facility] [place] [address] 03/24/2024 1:00 PM EDT - 03/24/2024 1:45 PM EDT [place] [phone] Shilo Lopez MD [facility] [place] [address] COLONOSCOPY, DIAGNOSTIC (WRVU 3.26) Scheduled Procedures Name Priority Associated Diagnoses Date/Ti wa COLONOSCOPY, DIAGNOSTIC (WRVU 3.26) Procedure: Colonoscopy Indication: [...] 10 mg, Oral, ONCE, 1 dose, On Wed04/16/23 at 1215, Administer prior to chemotherapy, Routine Given 04/16/2023 12:00 PM EDT 10 mg fluorouraciL (ADRUCIL) chemo injection 780 mg 780 mg (400 mg/m2/dose ? 1.95 m2 Treatment Plan BSA from Recorded weight), Intravenous, ONCE, 1 dose, On Wed04/16/23 at 1315, Administer over 5 Minutes, Warning Vesicant/Irritant Medication Given 04/16/2023 2:28 PM EDT 780 mg 187.2 mL/hr fluorouraciL (AdruciL) in sodium chloride 0.9% 138 mL infusion (46 Hour - For Home Use) 4,680 mg 4,680 mg (2,400 mg/m2/dose ? 1.95 m2 Treatment Plan BSA from Recorded weight), Intravenous, ONCE, 1 dose, On Wed04/16/23 at 1445, Administer over 46 Hours, Warning Vesicant/Irritant Medication To be infused via an ambulatory infusion CADD Sanchez pump continuously IV at 3 mL/hr for 46 hours. Pump contains a 46 hour supply and provides a daily dose of 1,200 mg/m2/day = 2,400 mg/m2 IV over 46 hours. Given 04/16/2023 2:35 PM EDT 4,680 mg 3 mL/hr leucovorin (Wellcovorin) 350 mg in dextrose 5% 85 mL infusion 350 mg, Intravenous, ONCE, 1 dose, On Wed04/16/23 at 1315, Administer over 85 Minutes, May Y-site with OXALIplatin Do not administer at a rate faster than 160 milligrams/minute. New Bag 04/16/2023 12:43 PM EDT 350 mg 60 mL/hr OXALIplatin (Eloxatin) 150 mg in dextrose 5% 280 mL infusion 150 mg, Intravenous, ONCE, 1 dose, On Wed04/16/23 at 1315, Administer over 85 Minutes, Compatible with dextrose-containing solution only. Warning Vesicant/Irritant Medication New Bag 04/16/2023 12:43 PM EDT 150 mg 197.6 mL/hr palonosetron (Aloxi) (0.05 mg/mL) injection 0.25 mg 0.25 mg, Intravenous, ONCE, 1 dose, On Wed04/16/23 at 1215, Administer over 30 seconds. Administer prior to chemotherapy, Routine Given 04/16/2023 12:02 PM EDT 0.25 mg prochlorperazine (Compazine) tablet 10 mg 10 mg, Oral, EVERY 6 HOURS PRN, Starting on Wed04/16/23 at 1353, Until Wed04/16/23 at 1759, Nausea, Vomiting, If multiple antiemetics are ordered, use in the following sequence: Ondansetron>Prochlorperazin e or Promethazine>LORazepam>Meto clopramide Maximum dose: 50 mg / 24 hrs, Routine Given 04/16/2023 2:05 PM EDT 10 mg documented in this encounter Care Teams Catalyst Operator Chief Relationship Specialty Start Date End Date Shruthi Arrington MD [address] [place] [address] PCP - General 05/06/10 06/24/23 documented as of this encounter
--- OUTSIDE RECORDS SUMMARY | 2024-01-26 03:09 | XMS_ITS | Encounter Summary ---
Author Organization [facility] Address [facility] [place] [address] Care Team Providers Care Miller Apprentice Name Role Phone CristobalElizaHina Primary Care Provider Encounter Details Date Type Department Care Team (Late st Contact Info) Description 07/11/2023 Telephone Hematology [place] [address] Ej Castillo MD [facility] DR HEMATOLOGY/[place] [address] Social History Tobacco Use Types Packs/Day Years [...] encounter Miscellaneous Notes * Telephone Encounter - Ej Castillo MD - 07/11/2023 1:59 PM EST Brief Phone note Blanca called this afternoon with port issue. Deaccessing her port she flushed with 2 NS syringes. After the 2nd flush she states the tube filled with blood and she therefore clamped it. She states this has never happened before. She states she did not pull-back on the syringe. I asked her if she could flush it again with another syringe but she states she does not have another syringe to do that. She is not experiencing any pain or discomfort. Since she did not have an additional syringe to flush the line, I had to instruct her to present to [facility] ED. I notified the Ed as well. documented in this encounter Plan of Treatment Upcoming Encounters Date Type Department Care Team (Late st Contact Info) Description 01/28/2024 10:30 AM EDT Office Visit Hematology/Oncolog y at [address] [phone] Derek Lindquist MD [facility] [place] [address] Ann Tello APRN [address] [place] [address] [place] [address] 03/24/2024 1:00 PM EDT Hospital Encounter [place] [address] Shilo Lopez MD [facility] DR [place] [address] 03/24/2024 1:00 PM EDT - 03/24/2024 1:45 PM EDT Surgery [place] [address] Shilo Lopez MD [facility] [place] [address] COLONOSCOPY, DIAGNOSTIC (WRVU 3.26) Scheduled Procedures Name [...] on filedocumented in this encounter Care Teams Miller Apprentice Relationship Specialty Start Date End Date Hina Johnson: [phone] [address] [place] [address] PCP - General Family Medicine 06/25/23 documented as of this encounter
--- OUTSIDE RECORDS SUMMARY | 2024-01-26 03:09 | XMS_ITS | Encounter Summary ---
Author Organization [facility] Address [facility] [place] [address] Care Team Providers Care Bottom Saw Operator Name Role Phone Hina Johnson Primary Care Provider Encounter Details Date Type Department Care Team (Late st Contact Info) Description 07/23/2023 Telephone Hematology and Oncology at [address] [phone] Estella Peacock Social History Tobacco Use Types Packs/Day Years [...] AM EDT Office Visit Hematology/Oncolog y at [address] [phone] Derek Lindquist MD [facility] [place] [address] Ann Tello APRN [address] [place] [address] DR HEMATOLOGY [place] [address] 03/24/2024 1:00 PM EDT Hospital Encounter [place] [address] Shilo Lopez MD [facility] [place] [address] 03/24/2024 1:00 PM EDT - 03/24/2024 1:45 PM EDT Surgery [place] [address] Shilo Lopez MD [facility] [place] [address] COLONOSCOPY, DIAGNOSTIC (WRVU 3.26) Scheduled Procedures Name [...] on filedocumented in this encounter Care Teams Bottom Saw Operator Relationship Specialty Start Date End Date Hina Johnson [address] [place] [address] PCP - General Family Medicine 06/25/23 documented as of this encounter
--- OUTSIDE RECORDS SUMMARY | 2024-01-26 03:09 | XMS_ITS | Encounter Summary ---
Author Organization [facility] [place] [address] Care Team Providers Care Hoist Operator Name Role Phone Shruthi Arrington MD Primary Care Provider [phone] Encounter Details Date Type Department Care Team (Late Contact Info) Description 05/12/2023 Orders Only Hematology [place] [address] Derek Lindquist MD [facility] [place] [address] Social History Tobacco Use Types Packs/Day Years [...] EDT Office Visit Hematology/Oncolog y at [address] [phone] Derek Lindquist MD [facility] [place] [address] Ann Tello APRN [address] [place] [address] [place] [address] 03/24/2024 1:00 PM EDT Hospital Encounter [place] [address] Shilo Lopez MD [facility] [place] [address] 03/24/2024 1:00 PM EDT - 03/24/2024 1:45 PM EDT Surgery [place] [address] Shilo Lopez MD [facility] [place] [address] COLONOSCOPY, DIAGNOSTIC (WRVU 3.26) Scheduled Procedures Name [...] on filedocumented in this encounter Care Teams Hoist Operator Relationship Specialty Start Date End Date Shruthi Arrington MD [address] [place] [address] PCP - General 05/06/10 06/24/23 documented as of this encounter
--- OUTSIDE RECORDS SUMMARY | 2024-01-26 03:09 | XMS_ITS | Encounter Summary ---
Author Organization [facility] Address [facility] [place] [address] Care Team Providers Care Geography Faculty Member Name Role Phone Shruthi Arrington MD Primary Care Provider [phone] Encounter Details Date Type Department Care Team (Latest Contact Info) Description 06/11/2023 Travel Social History Tobacco Use Types Packs/Day [...] AM EDT Office Visit Hematology/Oncolog y at [address] [phone] Derek Lindquist MD [facility] [place] [address] Ann Tello APRN [address] [place] [address] DR [place]Y [place] [address] 03/24/2024 1:00 PM EDT Hospital Encounter [place] [address] Shilo Lopez MD [facility] [place] [address] 03/24/2024 1:00 PM EDT - 03/24/2024 1:45 PM EDT Surgery [place] [address] Shilo Lopez MD [facility] [place] [address] COLONOSCOPY, DIAGNOSTIC (WRVU 3.26) Scheduled Procedures Name [...] on filedocumented in this encounter Care Teams Geography Faculty Member Relationship Specialty Start Date End Date Shruthi Arrington MD [address] [place] [address] PCP - General 05/06/10 06/24/23 documented as of this encounter
--- OUTSIDE RECORDS SUMMARY | 2024-01-26 03:09 | XMS_ITS | Encounter Summary ---
Author Organization [facility] [place] [address] Care Team Providers Care Lithographic Plate Maker Name Role Phone Shruthi Arrington MD Primary Care Provider [phone] Encounter Details Date Type Department Care Team (Late Contact Info) Description 06/24/2023 Orders Only Hematology [place] [address] Derek Lindquist MD [facility] [place] [address] Social History Tobacco Use Types Packs/Day Years [...] AM EDT Office Visit Hematology/Oncolog y at [address] [phone] Derek Lindquist MD [facility] [place] [address] Ann Tello APRN [address] [place] [address] [place] [address] 03/24/2024 1:00 PM EDT Hospital Encounter [place] [address] Shilo Lopez MD [facility] [place] [address] 03/24/2024 1:00 PM EDT - 03/24/2024 1:45 PM EDT [place] [address] Shilo Lopez MD [facility] [place] [address] COLONOSCOPY, DIAGNOSTIC (WRVU 3.26) Scheduled Procedures Name [...] on filedocumented in this encounter Care Teams Lithographic Plate Maker Relationship Specialty Start Date End Date Shruthi Arrington MD [address] [place] [address] PCP - General 05/06/10 06/24/23 documented as of this encounter
--- OUTSIDE RECORDS SUMMARY | 2024-01-26 03:10 | XMS_ITS | Encounter Summary ---
[place] [address] Care Team Providers Care Production Support Developer Name Role Phone Shruthi Arrington MD Primary Care Provider [phone] Encounter Details Date Type Department Care Team (Latest Contact Info) Description 03/02/2023 Multidisciplinary Ca re Committee [place] [address] Ema Garcia MD [facility] [place] [address] Social History Tobacco Use Types Packs/Day Years Used Date Smoking Tobacco: Former Cigarettes Sex and Gender Information Value Date Recorded Sex Assigned at Not on file Gender Identity Not on file Sexual Orientation Not on file documented as of this encounter Progress Notes * Ema Garcia MD - 03/02/2023 8:03 AM EDT Date of GI Discussion Date: 03/02/2023 Physicians Attending: John Garcia M Wilson, Ameena Potter Brooks (alt - Med Onc),Jv, and Eduardo Handley Physician Presenter: Garcia Colonoscopy Report Reviewed: Yes Imaging reviewed: Yes Location and Pathology of colon Primary: Currently no biopsy. Abnormality of appendix on CT scan, September 2021 compared to January 2023 abnormality of appendiceal thickening and involvement of psoas andanterior abdominal wall. Patient underwent colonoscopy showing multiple adenomatous polyps. Patient had ongoing discomfort 20 22-20 23. Repeat colonoscopy showed ongoing polyps in the right colon. 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 Patient presents with evaluation of abnormality on CT scan. 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 GI tumor board recommendations: Refer to invasive GI for attempt at colonoscopy and endoscopic FNA/tissue diagnosis of appendiceal mass. If represents cancer discussed with outside hospital regardingHIPEC treatment prior to resection. Plan: Urgent consult to Dr. Lopez/GI for tissue diagnosis documented in this encounter Plan of Treatment Upcoming Encounters Date Type Department Care Team (Late st Contact Info) Description 01/28/2024 10:30 AM EDT Office Visit Hematology/Oncolog y at [address] [phone] Derek Lindquist MD [facility] [place] [address] Ann Tello APRN [address] [place] [address] DR [place] [address] 03/24/2024 1:00 PM EDT Hospital Encounter [place] [phone] Shilo Lopez MD [facility] [address] 03/24/2024 1:00 PM EDT - 03/24/2024 1:45 PM EDT [place] [phone] Shilo Lopez MD [facility] [place] [address] COLONOSCOPY, DIAGNOSTIC (WRVU 3.26) Scheduled Procedures Name Priority Associated Diagnoses Date/Ti pr COLONOSCOPY, DIAGNOSTIC (WRVU 3.26) Procedure: Colonoscopy Indication: Malignant neoplasm of colon, unspecified part of colon and History of partial colectomy Sedation: IVCS Timeframe: within 2 weeks Specific provider: first available OV needed: No Anticoagulation status: no documented anticoagulation use 03/24/2024 1:00 PM EDT documented as of this encounter Visit Diagnoses Not on filedocumented in this encounter Care Teams Production Support Developer Relationship Specialty Start Date End Date Shruthi Arrington MD [address] [place] [address] PCP - General 05/06/10 06/24/23 documented as of this encounter
--- OUTSIDE RECORDS SUMMARY | 2024-01-26 03:10 | XMS_ITS | Encounter Summary ---
Author Organization [facility] Address [facility] [place] [address] Care Team Providers Care Loading Manager Name Role Phone Shruthi Arrington MD Primary Care Provider [phone] Encounter Details Date Type Department Care Team (Latest Contact Info) Description 03/16/2023 2:15 PM EDT - 03/16/2023 5:18 PM EDT Hospital En[place] [address] Shilo Lopez MD [facility] [place] [address] Discharge Disposition: Home Social History Tobacco Use [...] Sign Reading Time Taken Comments Blood Pressure 109/70 03/16/2023 4:45 PM EDT Pulse 76 03/16/2023 2:35 PM EDT Temperature 36.8 ??C (98.3 ??F) 03/16/2023 2:35 PM ED T Respiratory Rate 18 03/16/2023 4:45 PM EDT Oxygen Saturation 96% 03/16/2023 4:45 PM EDT Inhaled Oxygen Concentration - - Weight 83.9 kg (185 lb) 03/16/2023 2:35 PM EDT Height 154.9 cm (5' 1) 03/16/2023 2:35 PM EDT Body Mass Index 34.96 03/16/2023 2:35 PM EDT documented in this encounter Discharge Instructions * Discharge Instructions* Silvia Haque RN - 03/16/2023 4:38 PM EDT Endoscopic Ultrasound (Rectal): What to Expect at Home Your Recovery After you have a rectal endoscopic ultrasound--a test to find problems in your lower gastrointestinal tract--you will stay at the hospital or clinic for 1 to 2 hours. This will allow the medicine to wear off. You will be able to go home after your doctor or nurse checks to make sure you are not having any problems. After the test, you may be bloated or have gas pains. You may need to pass gas. If a biopsy was done, you may have streaks of blood in your stool (feces) for a few days. This care sheet gives you a general idea about how long it will take for you to recover. But each person recovers at a different pace. Follow the steps below to feel better as quickly as possible. How can you care for yourself at home? Activity Rest when you feel tired. You can do your normal activities when it feels okay to do so. Diet Follow your doctor's directions for eating. Unless your doctor has told you not to, drink plenty of fluids. This helps to replace the fluids that were lost during the colon prep. Do not drink alcohol. Medicines Your doctor will tell you if and when you can restart your medicines. He or she will also give you instructions about taking any new medicines. If you take blood thinners, such as warfarin (Coumadin), clopidogrel (Plavix), or aspirin, be sure to talk to your doctor. He or she will tell you if and when to start taking those medicines again. Make sure that you understand exactly what your doctor wants you to do. If a biopsy was done during the test, your doctor may tell you not to take aspirin or other anti-inflammatory medicines for a few days. These include ibuprofen (Advil, Motrin) and naproxen (Aleve). Other instructions For your safety, do not drive or operate machinery until the medicine wears off and you can think clearly. Your doctor may tell you not to drive or operate machinery until the day after your test. Do not sign legal documents or make major decisions until the medicine wears off and you can think clearly. The anesthesia can make it hard for you to fully understand what you are agreeing to. Additional Information for Sedation Patients For patients who received sedation: You may have received medications before and/or during your procedure which effects your judgement and reaction time. Do not drive, operate machinery, drink alcoholic beverages or make important decisions for 24 hours. Be careful on stairs as you may be unsteady on your feet. You may eat a regular diet as tolerated. Do not smoke if you are alone. IV site: Slight redness or tenderness is normal, you can use a warm compress if you would like. If tenderness and/or redness increase or if foul drainage occurs, please contact your Doctor. Please call [phone] before 8pm Mon-Fri with problems, questions or concerns. If you call after 8pm or on weekends, call the Hospital at [phone] and ask to speak to the Front End Java Developer operations clerk and the rivet hammer machine operator will contact that person for you. When should you call for help? Call [phone] anytime you think you may need emergency care. For example, call if: You passed out (lost consciousness). You pass maroon or bloody stools. You have trouble breathing. Call your doctor now or seek immediate medical care if: You have pain that does not get better after you take pain medicine. You are sick to your stomach or cannot drink fluids. You have new or worse belly pain. You have blood in your stools. You have a fever. You cannot pass stools or gas. Watch closely for changes in your health, and be sure to contact your doctor if you have any problems. Where can you learn more? [facility] View your After Visit Summary and more online at [email or web address] If you would like to provide feedback about your hospital experience, please call the Office of Patient and Family Relations at . If you have received this After Visit Summary in error, please immediately return it in person to the department, or notify the [facility] Privacy Office by calling toll free at between the hours of 8AM and 5PM to arrange for our retrieval of the documents at no cost to you. Content Version: 12.2 ?? 0749-8963 [facility]. Care instructions adapted under license by [facility]. If you have questions about a medical condition or this instruction, always ask your healthcare professional. [facility] disclaims any warranty or liability for your use of this information. Colonoscopy: What to Expect at Home Your Recovery Your doctor will talk to you about when you will need your next colonoscopy. Your doctor can help you decide how often you need to be checked. This will depend on the results of your test and your risk for colorectal cancer. After the test, you may be bloated or have gas pains. You may need to pass gas. If a biopsy was done or a polyp was removed, you may have streaks of blood in your stool (feces) for a few days. Problems such as heavy rectal bleeding may not occur until several weeks after the test. This isn't common. But it can happen after polyps are removed. This care sheet gives you a general idea about how long it will take for you to recover. But each person recovers at a different pace. Follow the steps below to get better as quickly as possible. How can you care for yourself at home? Activity Rest when you feel tired. You can do your normal activities when it feels okay to do so. Diet Follow your doctor's directions for eating. Unless your doctor has told you not to, drink plenty of fluids. This helps to replace the fluids that were lost during the colon prep. Do not drink alcohol. Medicines Your doctor will tell you if and when you can restart your medicines. He or she will also give you instructions about taking any new medicines. If you take blood thinners, such as warfarin (Coumadin), clopidogrel (Plavix), or aspirin, be sure to talk to your doctor. He or she will tell you if and when to start taking those medicines again. Make sure that you understand exactly what your doctor wants you to do. If polyps were removed or a biopsy was done during the test, your doctor may tell you not to take aspirin or other anti-inflammatory medicines for a few days. These include ibuprofen (Advil, Motrin) and naproxen (Aleve). Other instructions For your safety, do not drive or operate machinery until the medicine wears off and you can think clearly. Your doctor may tell you not to drive or operate machinery until the day after your test. Do not sign legal documents or make major decisions until the medicine wears off and you can think clearly. The anesthesia can make it hard for you to fully understand what you are agreeing to. Additional Information for Sedation Patients For patients who received sedation: You may have received medications before and/or during your procedure which effects your judgement and reaction time. Do not drive, operate machinery, drink alcoholic beverages or make important decisions for 24 hours. Be careful on stairs as you may be unsteady on your feet. You may eat a regular diet as tolerated. Do not smoke if you are alone. IV site: Slight redness or tenderness is normal, you can use a warm compress if you would like. If tenderness and/or redness increase or if foul drainage occurs, please contact your Doctor. Please call [phone] before 8pm Mon-Fri with problems, questions or concerns. If you call after 8pm or on weekends, call the Hospital at [phone] and ask to speak to the Front End Java Developer operations clerk and the rivet hammer machine operator will contact that person for you. When should you call for help? Call [phone] anytime you think you may need emergency care. For example, call if: You passed out (lost consciousness). You pass maroon or bloody stools. You have trouble breathing. Call your doctor now or seek immediate medical care if: You have pain that does not get better after you take pain medicine. You are sick to your stomach or cannot drink fluids. You have new or worse belly pain. You have blood in your stools. You have a fever. You cannot pass stools or gas. Watch closely for changes in your health, and be sure to contact your doctor if you have any problems. Where can you learn more? [facility] View your After Visit Summary and more online at [email or web address] If you would like to provide feedback about your hospital experience, please call the Office of Patient and Family Relations at . If you have received this After Visit Summary in error, please immediately return it in person to the department, or notify the [facility] Privacy Office by calling toll free at between the hours of 8AM and 5PM to arrange for our retrieval of the documents at no cost to you. Content Version: 12.2 ?? 8420-2173 [facility]. Care instructions adapted under license by [facility]. If you have questions about a medical condition or this instruction, always ask your healthcare professional. [facility] disclaims any warranty or liability for your use of this information. documented in this encounter Medications at Time [...] Take 500 mg by mouth as needed. ciprofloxacin (Cipro) 500 mg tablet Take 1 tablet by mouth 2 times daily. 6 tablet 03/16/2023 04/07/2023 Magnesium Gluconate 27 mg magnesium (500 mg) Tablet Take 500 mg by mouth. 05/25/20222022 Acetylcysteine (NAC) 600 mg capsule 600 mg. 11/07/2021 09/28/2023 documented as of this encounter H&P Notes * Shilo Lopez MD - 03/16/2023 2:44 PM EDT PROBLEM LIST Patient Active Problem List Diagnosis Code Abnormal CT scan, gastrointestinal tract R93.3 Malignant neoplasm of overlapping sites of colon C18.8 Colonic mass K63.89 Elevated carcinoembryonic antigen (CEA) R97.0 Bruxism F45.8 Depressive disorder F32.A Elevated blood-pressure reading without diagnosis of hypertension R03.0 Lack of energy R53.83 Obstructive sleep apnea syndrome G47.33 Posttraumatic stress disorder F43.10 Snoring R06.83 Vitamin D deficiency E55.9 HISTORY OF PRESENT ILLNESS Blanca Lujan is a 67 y.o. y/o who presents for colonoscopy/EUS for possible appendiceal vs RLQ mass. MEDICATIONS No current facility-administered medications on file prior to encounter. Current Outpatient Medications on File Prior to Encounter Medication Sig Dispense Refill Acetylcysteine (NAC) 600 mg capsule 600 mg. cyanocobalamin, vitamin B-12, (Vitamin B-12) 500 mcg tablet Take 500 mcg by mouth. ibuprofen (Advil) 800 mg tablet Take 800 mg by mouth as needed for Pain. Magnesium Gluconate 27 mg magnesium (500 mg) Tablet Take 500 mg by mouth. methocarbamoL (Robaxin) 500 mg tablet Take 500 mg by mouth as needed. PHYSICAL EXAM: Blood pressure (!) 139/98, pulse 76, temperature 36.8 ??C (98.3 ??F), temperature source Temporal, resp. rate 18, height 154.9 cm (5' 1), weight 83.9 kg (185 lb), SpO2 95 %. GEN: Alert, cooperative. Pleasant. In NAD MP I ASA II HEENT: No oropharyngeal lesions. Neck supple. No masses. Thyroid symmetric LUNGS: CTAB CARD: RRR without m/g/r RECENT LABS No results found for this or any previous visit (from the past 24 hour(s)). ASSESSMENT AND PLAN Blanca Lujan is a 67 y.o. y/o who presents for endoscopic evaluation. Risks extensively discussed including bleeding, infection, reaction to anesthesia, perforation, missing a cancer (if applicable) and/or other unforseen complication. Consent signed and patient well informed of the risks of the procedure. documented in this encounter Plan of Treatment Upcoming Encounters Date Type Department Care Team (Late st Contact Info) Description 01/28/2024 10:30 AM EDT Office Visit Hematology/Oncolog y at [address] [address] Derek Lindquist MD [facility] [place] [address] Ann Tello APRN [address] [place] [address] DR HEMATOLOGY AND ONCOLOGY [place], [place] [id number] 03/24/2024 1:00 PM EDT Hospital Encounter [place] [phone] Shilo Lopez MD [facility] [place] [address] 03/24/2024 1:00 PM EDT - 03/24/2024 1:45 PM EDT Surgery [place] [phone] Shilo Lopez MD [facility] [place] [address] COLONOSCOPY, DIAGNOSTIC (WRVU 3.26) Scheduled Procedures Name [...] Procedure Name Priority Date/Time Associated Diagnosis Comments SOLID TUMOR NGS PANEL Routine 03/16/2023 3:59 PM EDT NON-SEWAGE DISPOSAL WORKER FINAL REPORT Routine 03/16/2023 3:59 PM EDT SURGICAL PATHOLOGY REPORT Routine 03/16/2023 3:59 PM EDT SPECIMEN TO PATHOLOGY Routine 03/16/2023 3:59 PM EDT CYTOPATHOLOGY NON-GYNECOLOGICAL Routine 03/16/2023 3:59 PM EDT LOWER EUS-ENDOSCOPIC ULTRASOUND Routine 03/16/2023 2:57 PM EDT Upgi Endoscopy W/Us Fn Bx ([id number]) 03/16/2023 2:54 PM EDT Lower Eus with Guzman or me in the next two weeks Colonic mass Colonoscopy, Biopsy ([id number]) 03/16/2023 2:54 PM EDT Lower Eus with Guzman or me in the next two weeks Colonic mass Rectum Surgery Procedure Unlisted ([id number]) 03/16/2023 2:54 PM EDT Lower Eus with Guzman or me in the next two weeks Colonic mass documented in this encounter Results * Solid Tumor NGS Panel (03/16/2023 3:59 PM EDT) Tissue 03/16/2023 3:59 PM EDT 04/12/2023 11:37 AM EDT Narrative Resulting Agency Comment Spec In Lab Shilo Lopez MD PATHOLOGY/CYTOLOGY ORDERABLES [facility] [place] [address] * Non-Frog Farmer Final Report (03/16/2023 3:59 PM EDT) Diagnosis Discussion [id number] ? Location: 4T; EA12; A The signing pathologist has (i) examined the relevant preparation(s) for the specimen(s) and (ii) rendered or confirmed the diagnosis(es). . ? Non-Frog Farmer Final DIAGNOSIS Atypical Electronically signed by: ?Joseph ESPOSITO, Teagan Verified: ??03/18/2023 18:21 ??Pathologist Performed at: ??[facility] [place], [place] [address] Director Of Payroll: Alejandra Parmar MD, AP, ??CLIA Certificate: [id number] DISCUSSION Pericecal mass (EUS-guided FNA): The smears show a few groups of glandular cells, some with mild atypia, and a few fragments of fibrous stroma. The cell block contains rare minute fragments of fibrous stroma. ? Additional deeper levels examined. The material might not be fully clearance representative of the target lesion. Clinical and radiologic correlation is required. Please see the concurrent surgical pathology specimen of ?cecal mass biopsy, 92. Intradepartmental consultation documentation, CC - Dr. Marin (GI pathology) concurs. CLINICAL INFORMATION Specimen Source : Pericecal mass (EUS-guided FNA, assisted) Pertinent Clinical Data and Significant Therapy: 67 yo with pericecal mass Clinical Impression : ? malignancy Pertinent Radiologic Findings ??: (not provided) Gross Description: Received in Formalin approximately 45 mL total volume of clear, clear, colorless fluid, with clots. Total Preparation: Diff-Quik 2; Pap Stain 2; Cell Block 1. Fine Needle Aspiration Immediate Assessment: Evaluation Episode #1 (1 slide): Inadequate for final diagnosis. Evaluation Episode #2 (1 slide): Inadequate for final diagnosis. Clusters of glandular appearing cells. More to CB Immediate Assessment by: Teagan Ruiz MD. . CLINICAL INFORMATION Note: The above attending cytopathologist personally examined the Immediate Assessment slides and rendered the Immediate Assessment. Such assessments are preliminary; see Diagnosis and Discussion for final interpretation. 03/18/2023 6:21 PM EDT [facility] Misc. FNA 03/16/2023 3:59 PM EDT 03/16/2023 3:59 PM EDT Shilo Lopez MD PATHOLOGY/CYTOLOGY ORDERABLES Performing Organization Address [facility]/State/ZIP Co de Phone Number [facility] [address] [place] [address] * Surgical Pathology Report (03/16/2023 3:59 PM EDT) Final Diagnosis [id number] ? Location: 4T; EA12; A The signing pathologist has (i) examined the relevant preparation(s) for the specimen(s) and (ii) rendered or confirmed the diagnosis(es). . ?Surgical Pathology DIAGNOSIS A - Cecal mass bx's, biopsy (Multiple): - Adenocarcinoma, moderately differentiated, see discussion. Electronically signed by: ?Tomas ESPOSITO, Kimberly Verified: ??03/18/2023 17:51 ??Pathologist Performed at: ??[facility] [place], [place] [address] Director Of Payroll: Alejandra Parmar MD, FCAP, ??CLIA Certificate: [id number] DISCUSSION Immunostains for MLH1, MSH2, MSH6 and PMS2 reveal intact nuclear staining in tumor cells. ??In a very small percentage of tumors, there may still be an underlying hereditary defect in these DNA mismatch repair genes despite intact nuclear expression of the protein in tumor cells . Genetic counseling and/or additional workup is indicated in patients with a family history that meets current criteria for Capellan syndrome screening. ADDITIONAL STUDIES Immunohistochemistry Studies: These IHC studies provide the pathologist with adjunctive diagnostic information. Antibody specificity has been verified by testing antibodies on a series of in-house tissues with known immunohistochemical performance characteristics. The clinical interpretation of any antibody positive staining or its absence is evaluated within the context of clinical presentation, morphology, histopathological criteria and other diagnostic tests. Block ? Antibody ? Result (Positive/Negative) A1 ? MLH1 ? intact nuclear staining in tumor cells ? MSH2 ? intact nuclear staining in tumor cells ? MSH6 ? intact nuclear staining in tumor cells ? PMS2 ? intact nuclear staining in tumor cells Immunohistochemical assay was performed on paraffin-embedded tissue sections fixed in 10% neutral buffered formalin for 6-72 hours using the polymer system technique with appropriate controls. The assay was performed according to the electrical electronics engineer's instructions using anti-MLH-1 (ES05), anti-MSH-2 ([id number]), anti-MSH-6 (44), and anti-PMS-2 (MRQ-28) antibodies. Whole slide scan: [id number] A1-1 SPECIMEN(S) SUBMITTED A - cecal mass bx's, biopsy (Multiple) CLINICAL INFORMATION 67-year-old with cecal mass SPECIMEN PROCESSING A - Labeled/Fixative: Cecal mass BX, formalin. Quantity/Size: Five, ranging from 0.2-0.5 cm. Tissue Description: Soft, pink tissues. Sections/Processing: Submitted in toto ??in 1 cassette labeled A1. ??sdy 03/18/2023 5:51 PM EDT [facility] GI Biopsy 03/16/2023 3:59 PM EDT 03/16/2023 3:59 PM EDT Shilo Lopez MD PATHOLOGY/CYTOLOGY ORDERABLES [address] [place] [address] * Cytopathology Non-Gynecological (03/16/2023 3:59 PM EDT) AP Specimen 03/16/2023 3:59 PM EDT 03/16/2023 3:59 PM EDT Narrative [facility] - 03/16/2023 3:59 PM EDT Specimen requisition ordered. ??Separate Pathology report to follow Shilo Lopez MD PATHOLOGY/CYTOLOGY ORDERABLES [facility] [place] [address] * Specimen to Pathology (03/16/2023 3:59 PM EDT) AP Specimen 03/16/2023 3:59 PM EDT 03/16/2023 3:59 PM EDT Narrative [facility] - 03/16/2023 3:59 PM EDT Specimen requisition ordered. ??Separate Pathology report to follow Shilo Lopez MD PATHOLOGY/CYTOLOGY ORDERABLES [facility] [place] [address] * LOWER EUS-ENDOSCOPIC ULTRASOUND (03/16/2023 2:57 PM EDT) LOWER EUS [facility] Endoscopy ___ Procedure Date: 03/16/2023 2:57 PM ? Patient Name: Blanca Lujan ? Date of : 1955 ? Age: 67 ? Order #: [id number] ? Instrument Name: EUS Linear (Wilfrido,[id number] ? ___ Procedure: ? Lower EUS Indications: ? Possible colon mass Providers: ? Shilo Lopez MD, Walt Kruse ? Shon Medina, MANOHAR, ? Xavier Wise MD: ?Shruthi Arrington MD Medicines: ? Monitored Anesthesia Care; Cipro ? 400 mg IV Complications: ? No immediate complications. ___ Procedure: ? Pre-Anesthesia Assessment: ? - Prior to the procedure, a History ? and Physical was performed, and ? patient medications and allergies ? were reviewed. The patient is ? competent. The risks and benefits ? of the procedure and the sedation ? options and risks were discussed ? with the patient. All questions ? were answered and informed consent ? was obtained. Patient ? identification and proposed ? procedure were verified by the ? physician in the pre-procedure ? area. Mental Status Examination: ? alert and oriented. Airway ? Examination: normal oropharyngeal ? airway and neck mobility. ? Respiratory Examination: clear to ? auscultation. CV Examination: ? normal. Prophylactic Antibiotics: ? The patient does not require ? prophylactic antibiotics. Prior ? Anticoagulants: The patient has ? taken no anticoagulant or ? antiplatelet agents. ASA Grade ? Assessment: II - A patient with ? mild systemic disease. After ? reviewing the risks and benefits, ? the patient was deemed in ? satisfactory condition to undergo ? the procedure. The anesthesia plan ? was to use monitored anesthesia ? care (MAC). Immediately prior to ? administration of medications, the ? patient was re-assessed for ? adequacy to receive sedatives. The ? heart rate, respiratory rate, ? oxygen saturations, blood pressure, ? adequacy of pulmonary ventilation, ? and response to care were monitored ? throughout the procedure. The ? physical status of the patient was ? re-assessed after the procedure. ? The procedure, indications, ? benefits, risks and alternatives ? were explained to the patient. ? Specifically discussed were ? potential complications including, ? but not limited to, bleeding, ? perforation, infection, missing a ? cancer, and adverse medication ? reactions. The [id number] was ? introduced through the anus and ? advanced to the cecum, identified ? by appendix & IC valve for ? ultrasound. The Colonoscope was ? introduced through the anus and ? advanced to the cecum, identified ? by appendix & IC valve for ? ultrasound. The lower EUS was ? accomplished without difficulty. ? The patient tolerated the procedure ? well. The quality of the bowel ? preparation was excellent. ? Findings: ? ENDOSCOPIC FINDING: : ? The entire examined colon appeared normal until the ? cecum. In the very proximal AC colon just adjacent to ? the IC valve were 3-4 small (less than 5 mm) polyps ? which were not removed. It was very difficult to ? enter the cecum but there did appear to be a mucosal ? irregularity not in the base of the cecum, but in the ? lateral mucosa just adjacent. The muocosa was finable ? and we attempted multiple biopsies. We could not ? enter into the IC valve due to obstruction. There was ? left sided diverticular disease but otherwise the ? colon was normal. ? ENDOSONOGRAPHIC FINDING: : ? We were able to advance the linear echoendoscope to ? the cecum and could identify an ill-defined 4 cm ? hypoechoic region adjacent to the cecum. It was soft ? and irregular and multiple (5) FNB under doppler ? guidance were performed into the mass. The mass was ? either inflammatory or malignant. ? Moderate Sedation: ? Not applicable - See Anesthesia documentation Impression: ?- Possible malignant lesion of the ? appendix/cecum laterally with ? biopsies of the mucosa and FNA into ? an adjacent hypoechoic region of ? the cecum. Recommendation: ?- Await biopsy results ? - Cipro 500 mg bid x 3 days ? Attending Participation: ? I was present and participated during the entire ? procedure, including non-alcaraz portions. ? __ Shilo Lopez MD 03/16/2023 4:12:14 PM This report has been signed electronically. Number of Addenda: 0 Note Initiated On: 03/16/2023 2:57 PM PROVATION 03/16/2023 2:57 PM EDT Shruthi Arrington MD GENERAL SURGICAL ORD ERABLES PROVATION documented in this encounter Visit Diagnoses Not on filedocumented in this encounter Administered Medications Inactive Administered Medications - up to 3 most recent administrations Medication Order MAR Action Action Date Dose Rate Site lactated ringers infusion 100 mL/hr, Intravenous, CONTINUOUS, Starting on Wed03/16/23 at 1445, Until Wed03/16/23 at 1701, Endoscopy (Day of Procedure) Restarted 03/16/2023 2:53 PM EDT New Bag 03/16/2023 2:52 PM EDT 100 mL/hr 100 mL/hr documented in this encounter Active and Recently Administered Medications Times are shown in EDT. Continuous Medication Order 03/14/2023 03/15/2023 03/16/2023 lactated ringers infusion (CANCELED) 100 mL/hr, Intravenous, CONTINUOUS, Starting on Wed03/16/23 at 1445, Until Tu03/16/23 at 1701, Endoscopy (Day of Procedure) 1452 (New Bag - Prov ider: Rama Nicolas RN)1452 (Paused - Provider: Rama Schmidt CRNA - Comment: Switch to gravity)1453 (Restarted - Provider: Rama Schmidt CRNA) documented in this encounter Care Teams Loading Manager Relationship Specialty Start Date End Date Shruthi Arrington MD [address] [place] [address] PCP - General 05/06/10 06/24/23 documented as of this encounter
--- OUTSIDE RECORDS SUMMARY | 2024-01-26 03:10 | XMS_ITS | Encounter Summary ---
Author Organization [facility] Address [address] [place] [address] Care Team Providers Care Greens Picker Name Role Phone Shruthi Arrington MD Primary Care Provider [phone] Encounter Details Date Type Department Care Team (Late st Contact Info) Description 07/08/2023 Lab Requisition [facility] Pathology & Laboratory Medicine - [address] [id number] Outr Resulting Lab, Provider Social History Tobacco Use Types Packs/Day Years Used Date Smoking Tobacco: Never Assessed Sex and Gender Information Value Date Recorded Sex Assigned at Not on file Gender Identity Not on file Sexual Orientation Not on file documented as of this encounter Plan of Treatment Not on file documented as of this encounter Procedures Procedure Name Priority Date/Time Associated Diagnosis Comments CEA Routine 07/08/2023 13:40 EST documented in this encounter Results * CEA (07/08/2023 13:40 EST) CEA 2.9 See Note ng/mL 07/08/2023 22:20 EST [facility] Comment: % Distribution of CEA (ng/mL): ??0.0 - 2.5 in 98.2% of Nonsmokers and 87.3% of Smokers ??2.6 - 5 in 1.8% of Nonsmokers and 8% of Smokers ??5.1 - 10.1 in 4.7% of Smokers NOTE: Serum CEA concentration should not be interpeted as absolute evidence for the presence or absence of malignant disease. ?? Assayed on Siemens ADVIA TouristWayaur XPT using chemiluminescent technology. ??Values obtained by different assay methods cannot be used interchangeably. Blood VENOUS BLOOD / Unknown 07/08/2023 13:40 EST 07/08/2023 21:18 EST Provider Outr Resulting Lab CHEMISTRY & BLOOD GAS ORDERABLES [facility] [address] [place] [address] documented in this encounter Visit Diagnoses Not on filedocumented in this encounter Care Teams Greens Picker Relationship Specialty Start Date End Date Shruthi Arrington MD [address] [place] [address] PCP - General 09/16/15 documented as of this encounter
--- OUTSIDE RECORDS SUMMARY | 2024-01-26 03:10 | XMS_ITS | Clinical Summary ---
Author Organization [facility] Address [address] [place] [address] Care Team Providers Care Commercial Marketing Specialist Name Role Phone Shruthi Arrington MD Primary Care Provider [phone] Allergies Active Allergy Reactions Criticality Noted Date Comments Sulfamethoprim Medium 10/04/2015 Sulfamethoxazole-Trimethoprim Medium 2015 Cephalexin Medium 10/04/2015 Medications Medication Sig Dispensed Refills Start Date End Date Status ibuprofen (MOTRIN) 800 mg tablet Take 800 mg by mouth 3 times daily as needed for Pain. Active fluticasone (FLONASE) 50 mcg/actuation nasal spray Instill 100 mcg into both nostrils daily. Active Encounters Date Type Department Care Team Description 10/28/2023 Lab Requisition [facility] Pathology & Laboratory Medicine - [facility] [address] [place] [address] Outr Resulting Lab, Provider from Last 3 Months Social History Tobacco Use Types Packs/Day Years Used Date Smoking Tobacco: Never Assessed Sex and Gender Information Value Date Recorded Sex Assigned at Not on file Gender Identity Not on file Sexual Orientation Not on file Last Filed Vital Signs Vital Sign Reading Time Taken Comments Blood Pressure 152/84 10/07/2015 0930 EDT Pulse 94 10/07/2015 0930 EDT Temperature 36.7 ??C (98.1 ??F) 10/07/2015 0930 EDT Respiratory Rate - - Oxygen Saturation - - Inhaled Oxygen Concentration - - Weight 71.2 kg (157 lb) 10/07/2015 0930 EDT Height 154.9 cm (5' 1) 10/07/2015 0930 EDT Body Mass Index 29.66 10/07/2015 0930 EDT Plan of Treatment Health Maintenance Due Date Last Done Comments Hepatitis C Screen 1955 RSV Immunization ( o r 60+ Years) (1 - 1-dose 60+ series) 2017 Fall Risk Screening 2022 COVID-19 Vaccine (2022-24 season) 2023 Procedures Procedure Name Priority Date/Time Associated Diagnosis Comments CEA Routine 10/28/2023 10:25 EDT from Last 3 Months Results * CEA (10/28/2023 10:25 EDT) CEA 1.1 See Note ng/mL 10/28/2023 21:01 EDT [facility] Comment: % Distribution of CEA (ng/mL): ??0.0 - 2.5 in 98.2% of Nonsmokers and 87.3% of Smokers ??2.6 - 5 in 1.8% of Nonsmokers and 8% of Smokers ??5.1 - 10.1 in 4.7% of Smokers NOTE: Serum CEA concentration should not be interpeted as absolute evidence for the presence or absence of malignant disease. ?? Assayed on Siemens ADVIA Centaur XPT using chemiluminescent technology. ??Values obtained by different assay methods cannot be used interchangeably. Blood VENOUS BLOOD / Unknown 10/28/2023 10:25 EDT 10/28/2023 19:42 EDT Provider Outr Resulting Lab CHEMISTRY & BLOOD GAS ORDERABLES [facility] [address] [place], [place] [address] from Last 3 Months Care Teams Commercial Marketing Specialist Relationship Specialty Start Date End Date Shruthi Arrington MD [address] [place] [address] PCP - General 09/16/15
--- OUTSIDE RECORDS SUMMARY | 2024-01-26 03:10 | XMS_ITS | Encounter Summary ---
Author Organization [facility] Address [address] [place] [address] Care Team Providers Care Learning Coach Name Role Phone Shruthi Arrington MD Primary Care Provider [phone] Encounter Details Date Type Department Care Team (Late st Contact Info) Description 11/07/2021 Lab Requisition [facility] Pathology & Laboratory Medicine - [address] [address] Monique Rock, DO [address] [place], [place] [address] Encounter for screening for malignant neoplasm of colon Social History Tobacco [...] Procedure Name Priority Date/Time Associated Diagnosis Comments SURGICAL PATHOLOGY Today 11/07/2021 8:47 EDT Encounter for screening for malignant neoplasm of colon documented in this encounter Results * SURGICAL PATHOLOGY (11/07/2021 8:47 EDT) Note to Patient The following pathology results have been interpreted by your pathologist and may be available to you before your health provider has had the opportunity to review them. Please allow time for your provider to receive these results and explore management options, if applicable. 11/12/2021 16:23 EDT [facility] Final Diagnosis A. COLON, CECUM, POLYPS, BIOPSY: - Fragments of tubular adenoma(s). B. COLON, 80 CM, POLYPS, BIOPSY: - Fragments of tubular adenoma(s). C. COLON, 60 CM, POLYPS, BIOPSY: - Colonic mucosa with hyperplastic surface change. D. COLON, 20 CM, POLYP, POLYPECTOMY: - Tubulovillous adenoma. E. COLON, 30 CM, POLYPS, BIOPSY: - Fragments of tubular adenoma(s). 11/12/2021 16:23 [facility] Attestation By the signature below, the attending physician certifies that they have 1) personally conducted a gross and/or microscopic examination of the described specimen(s), and/or personally interpreted the results of laboratory testing of the described specimen(s), and 2) personally rendered or confirmed the above diagnosis. 11/12/2021 16:23 [facility] at 1623 Clinical History LLQ pain, abnormal CT, colon screening, diarrhea, diverticulitis 11/12/2021 16:23 [facility] Gross Description A. Received in formalin labelled with proper patient identification (initials B, H) and cecal polyp (x 12) are 13 lópez irregular tissues ranging from 0.2 x 0.1 x 0.1 cm to 0.6 x 0.4 x 0.2 cm. Entirely submitted in A1-A3. B. Received in formalin labelled with proper patient identification (initials B, H) and polyps @ 80 cm (x5) are 6 lópez irregular tissues ranging from 0.1 x 0.1 x 0.1 cm to 0.4 x 0.3 x 0.2 cm. Entirely submitted in B1. C. Received in formalin labelled with proper patient identification (initials B, H) and polyp @ 60 cm x 2 is a single ólpez nodular tissue, 0.2 x 0.2 x 0.2 cm and a 0.3 x 0.1 by less than 0.1 cm fragment of apparent vegetable matter. Additional tissue fragments are not identified. Entirely submitted in C1. D. Received in formalin labelled with proper patient identification (initials B, H) and colon polyp @ 20 cm is a pale brown lobulated tissue, 1.0 x 0.6 x 0.5 cm. Bisected and entirely submitted in D1. E. Received in formalin labelled with proper patient identification (initials B, H) and polyps @ 30 cm x 2 are two lópez tissues averaging 0.4 x 0.2 x 0.2 cm. Entirely submitted in E1. JANELLE BROOKS(ASCP) 11/11/2021 7:55 11/12/2021 16:23 EDT [facility] Performing Lab [facility] 11/12/2021 16:23 EDT [facility] Scanned Images 11/12/2021 16:23 EDT [facility] Tissue ENTIRE COLON / Unknown 11/07/2021 8:47 EDT 11/07/2021 17:48 EDT Tissue specimen (specimen) COLON STRUCTURE / Unknown 11/07/2021 8:47 EDT 11/07/2021 17:48 EDT Tissue specimen (specimen) COLON STRUCTURE / Unknown 11/07/2021 8:47 EDT 11/07/2021 17:48 EDT Tissue specimen (specimen) COLON STRUCTURE / Unknown 11/07/2021 8:47 EDT 11/07/2021 17:48 EDT Tissue specimen (specimen) COLON STRUCTURE / Unknown 11/07/2021 8:47 EDT 11/07/2021 17:48 EDT Monique Rock DO PATHOLOGY ORDERABLES [facility] [address] [place] [address] documented in this encounter Visit Diagnoses Diagnosis Encounter for screening for malignant neoplasm of colon Special screening for malignant neoplasms, colon documented in this encounter Care Teams Learning Coach Relationship Specialty Start Date End Date Shruthi Arrington MD [address] [place] [address] PCP - General 09/16/15 documented as of this encounter
--- OUTSIDE RECORDS SUMMARY | 2024-01-26 03:10 | XMS_ITS | Encounter Summary ---
Author Organization [facility] [place] [address] Care Team Providers Care Truck Dock Material Mover Name Role Phone Shruthi Arrington MD Primary Care Provider [phone] Reason for Referral * Diagnostic Test (Routine) - Closed Specialty Diagnoses / Procedures Referred By Contac t Referred To Contact Radiology Diagnoses Adenocarcinoma, appendix Procedures CT Chest Abdomen Pelvis w Contrast (Generic) Derek Lindquist MD [facility] [place] [address] Referral ID Status Reason Start Date Expiration Date V isits Requested Visits Authorized [id number] Closed Specialty Service Requested 04/07/2023 10/06/2024 1 1 Reason for Visit * Diagnostic Test (Routine) - Closed Specialty Diagnoses / Procedures Referred By Contac t Referred To Contact Radiology Diagnoses Adenocarcinoma, appendix Procedures CT Chest Abdomen Pelvis w Contrast (Generic) Derek Lindquist MD [facility] [place] [address] Referral ID Status Reason Start Date Expiration Date V isits Requested Visits Authorized [id number] Closed Specialty Service Requested 04/07/2023 10/06/2024 1 1 Encounter Details Date Type Department Care Team (Latest Contact Info) Description 04/14/2023 12:24 PM EDT - 04/14/2023 3:28 PM EDT Hospital [place] [address] Derek Lindquist MD [facility] [place] [address] Adenocarcinoma, 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 Social History [...] EDT Office Visit Hematology/Oncolog y at [address] [address] Derek Lindquist MD [facility] [address] [place] [address] Ann Tello APRN [address] [place] [address] H[place]Y [place] [address] 03/24/2024 1:00 PM EDT Hospital [place] [address] Shilo Lopez MD [facility] [place] [address] 03/24/2024 1:00 PM EDT - 03/24/2024 1:45 PM EDT [place] [id number] Shilo Lopez MD [facility] [place] [address] COLONOSCOPY, DIAGNOSTIC (WRVU 3.26) Scheduled Procedures Name [...] CHEST ABDOMEN PELVIS W CONTRAST (GENERIC) Routine 04/14/2023 3:19 PM EDT Adenocarcinoma, appendix documented in this encounter Results * CT Chest Abdomen Pelvis w Contrast (Generic) (04/14/2023 3:19 PM EDT) Anatomical Region Laterality Modality Abdomen, Pelvis Computed Tomogra phy Impressions 04/15/2023 10:19 AM EDT 1. ??Stable appearance of cecal thickening with dilated and thickened appendix which appears adherent to the terminal ileum. 2. ??No significant change in appearance of adjacent multiloculated collection extending from the anterior abdominal musculature to the right iliopsoas muscle, concerning for abscess versus metastatic disease. 3. ??Increased size of several right lower quadrant lymph node suspicious for metastatic disease. 4. ??Heterogenous hepatic lesion adjacent to the gallbladder fossa, unchanged since 10/01/2021 and indeterminant. Consider MRI for further evaluation. 5. ??A few right upper lobe sub-5 mm pulmonary nodules, indeterminant. Recommend attention on follow-up. Thank you for letting us participate in the care of this patient. ??If you are a health care provider and have any questions regarding this report, please contact the number below. ??For patients who have questions please contact the health patient care manager that requested your imaging first. ? 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 Administered 112.0 ml of OMNIPAQUE 350.00 mg/ml. Oral contrast was administered. COMPARISON: CT AP from 02/19/2023. FINDINGS: Chest: Lungs and large airways: There are a few sub-5 mm nodules in the right upper lobe (series 4 image 25, 33, 34). The remainder of the lungs are clear. The central airways are patent. Pleura: No effusion. Heart/vasculature: Normal. Right chest port with catheter tip at the cavoatrial junction. Lymph nodes: No enlarged lymph nodes. Mediastinum and asmita: Subcentimeter left thyroid nodule. Abdomen/pelvis: Liver: Diffuse decreased attenuation consistent with steatosis. Stable heterogenous hypoattenuating lesion adjacent to the gallbladder fossa measuring 3.2 x 2.5 x 1.6 cm. No new hepatic lesion. Bile ducts: Nondilated. Gallbladder: No calcified gallstones. Normal caliber wall. Pancreas: Normal attenuation without ductal dilatation. Spleen: Normal. Adrenals: Normal. Kidneys: Normal. Urinary Bladder: Normal. Vasculature: No abdominal aortic aneurysm. Patent portal vein. Lymph Nodes: Slight increase in size of several right lower quadrant lymph nodes, the largest measuring 13 mm in short axis (series 3 image 109), previously 9 mm. Bowel: Similar appearance of thickened cecal wall. The appendix is thickened and dilated with adherence to the distal ileum and extension inferiorly to a complex solid and cystic collection. Sigmoid diverticulosis without evidence of acute sigmoid inflammation. No dilated loops of bowel or evidence of obstruction. Peritoneum and abdominal wall: Similar size and extent of multiloculated rim-enhancing collection adjacent to the appendix and extending to the right lower quadrant anterior abdominal musculature measuring approximately 2.4 x 1.5 cm. The collection also extends posteriorly involving the right iliopsoas muscle with slight decrease in size of the rim-enhancing low-attenuation component now measuring 4.0 x 2.7 cm, previously 4.5 x 2.8 cm. No evidence of omental caking. Persistent mild mesenteric stranding in the right lower quadrant. No free fluid. No pneumoperitoneum. Reproductive organs: Unchanged lobular contour of the uterus with multiple hypodense masses and coarse calcifications most consistent with fibroids. Osseous structures: Sclerotic foci in the proximal right femur and left acetabulum are unchanged compared to 202 and likely represent bone islands. No new lytic or sclerotic lesion. 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 Administered 112.0 ml ofOMNIPAQUE 350.00 mg/ml. Oral contrast was administered. COMPARISON: CT AP from 02/19/2023. FINDINGS: Chest: Lungs and large airways: There are a few sub-5 mm nodules in the rightupper lobe (series 4 image 25, 33, 34). The remainder of the lungs are clear.The central airways are patent. Pleura: No effusion. Heart/vasculature: Normal. Right chest port with catheter tip at thecavoatrial junction. Lymph nodes: No enlarged lymph nodes. Mediastinum and asmita: Subcentimeter left thyroid nodule. Abdomen/pelvis: Liver: Diffuse decreased attenuation consistent with steatosis. Stable heterogenous hypoattenuating lesion adjacent to the gallbladder fossameasuring 3.2 x 2.5 x 1.6 cm. No new hepatic lesion. Bile ducts: Nondilated. Gallbladder: No calcified gallstones. Normal caliber wall. Pancreas: Normal attenuation without ductal dilatation. Spleen: Normal. Adrenals: Normal. Kidneys: Normal. Urinary Bladder: Normal. Vasculature: No abdominal aortic aneurysm. Patent portal vein. Lymph Nodes: Slight increase in size of several right lower quadrantlymph nodes, the largest measuring 13 mm in short axis (series 3 image 109), previously 9 mm. Bowel: Similar appearance of thickened cecal wall. The appendix isthickened and dilated with adherence to the distal ileum and extension inferiorly to acomplex solid and cystic collection. Sigmoid diverticulosis without evidence ofacute sigmoid inflammation. No dilated loops of bowel or evidence ofobstruction. Peritoneum and abdominal wall: Similar size and extent of multiloculated rim-enhancing collection adjacent to the appendix and extending to theright lower quadrant anterior abdominal musculature measuring approximately 2.4x 1.5 cm. The collection also extends posteriorly involving the right iliopsoasmuscle with slight decrease in size of the rim-enhancing low-attenuationcomponent now measuring 4.0 x 2.7 cm, previously 4.5 x 2.8 cm. No evidence of omentalcaking. Persistent mild mesenteric stranding in the right lower quadrant. No freefluid. No pneumoperitoneum. Reproductive organs: Unchanged lobular contour of the uterus withmultiple hypodense masses and coarse calcifications most consistent withfibroids. Osseous structures: Sclerotic foci in the proximal right femur and left acetabulum are unchanged compared to 202 and likely represent boneislands. No new lytic or sclerotic lesion. IMPRESSION 1. Stable appearance of cecal thickening with dilated and thickenedappendix which appears adherent to the terminal ileum. 2. No significant change in appearance of adjacent multiloculatedcollection extending from the anterior abdominal musculature to the right iliopsoasmuscle, concerning for abscess versus metastatic disease. 3. Increased size of several right lower quadrant lymph node suspiciousfor metastatic disease. 4. Heterogenous hepatic lesion adjacent to the gallbladder fossa,unchanged since 10/01/2021 and indeterminant. Consider MRI for further evaluation. 5. A few right upper lobe sub-5 mm pulmonary nodules, indeterminant.Recommend attention on follow-up. Thank you for letting us participate in the care of this patient. If youare a health care provider and have any questions regarding this report,please contact the number below. For patients who have questions please contactthe health patient care manager that requested your imaging first. Derek Lindquist [...] Intravenous, ONCE PRN, 1 dose, Starting on Wed04/14/23 at 1515, Until Wed04/14/23 at 1515, Per Protocol, Warning Vesicant/Irritant Medication , Radiology Contrast, Routine Given 04/14/2023 3:15 PM EDT 112 mLs iohexoL (Omnipaque) (350 mg/mL) solution 0-50 mL 0-50 mL, Oral, ONCE PRN, 1 dose, Starting on Wed04/14/23 at 1515, Until Wed04/14/23 at 1515, Per Protocol, Warning Vesicant/Irritant Medication , Radiology Contrast, Routine Given 04/14/2023 3:15 PM EDT 50 mLs documented in this encounter Care Teams Truck Dock Material Mover Relationship Specialty Start Date End Date Shruthi Arrington MD [address] [place] [address] PCP - General 05/06/10 06/24/23 documented as of this encounter
--- OUTSIDE RECORDS SUMMARY | 2024-01-26 03:10 | XMS_ITS | Encounter Summary ---
[place] [address] Care Team Providers Care Co Founder And Director Name Role Phone Shruthi Arrington MD Primary Care Provider [phone] Reason for Referral * Consultation (Priority 1) - Closed Specialty Diagnoses / Procedures Referred By Contac t Referred To Contact Genetics Diagnoses Adenocarcinoma, appendix Derek Lindquist MD [facility] [place] [address] [facility] Hem Onc [address] [place] [address] Referral ID Status Reason Start Date Expiration Date V isits Requested Visits Authorized [id number] Closed Consult, Test & Treat 04/07/2023 04/06/2024 1 1 * Diagnostic Test (Routine) - Closed Specialty Diagnoses / Procedures Referred By Contac t Referred To Contact Radiology Diagnoses Adenocarcinoma, appendix Procedures CT Chest Abdomen Pelvis w Contrast (Generic) Derek Lindquist MD [facility] [place] [address] Referral ID Status Reason Start Date Expiration Date V isits Requested Visits Authorized [id number] Closed Specialty Service Requested 04/07/2023 10/06/2024 1 1 * Diagnostic Test (Routine) - Closed Specialty Diagnoses / Procedures Referred By Contac t Referred To Contact Radiology Diagnoses Adenocarcinoma, appendix Procedures IR Mediport Placement Derek Lindquist MD [facility] [place] [address] [facility] [place] [address] Referral ID Status Reason Start Date Expiration Date V isits Requested Visits Authorized [id number] Closed Specialty Service Requested 04/07/2023 10/06/2024 1 1 Reason for Visit * Reason Comments Advice Only * Consultation (Urgent) - Closed Specialty Diagnoses / Procedures Referred By Contac t Referred To Contact Hematology and Oncology Diagnoses Abnormal CT scan, gastrointestinal tract Elevated carcinoembryonic antigen (CEA) Adenocarcinoma, appendix Ema Garcia MD [facility] [place] [place] [address] [facility] Hem Onc [address] [place] [address] Referral ID Status Reason Start Date Expiration Date V isits Requested Visits Authorized [id number] Closed Consult, Test & Treat 03/21/2023 03/20/2024 1 1 Encounter Details Date Type Department Care Team (Late st Contact Info) Description 04/07/2023 2:45 PM EDT Office Visit Hematology [place] [address] Derek Lindquist MD [facility] [place] [address] Adenocarcinoma, appendix Social History Tobacco Use Types [...] Sign Reading Time Taken Comments Blood Pressure 146/83 04/07/2023 2:39 PM EDT Pulse 74 04/07/2023 2:39 PM EDT Temperature 36.1 ??C (97 ??F) 04/07/2023 2:39 PM EDT Respiratory Rate 17 04/07/2023 2:39 PM EDT Oxygen Saturation 97% 04/07/2023 2:39 PM EDT Inhaled Oxygen Concentration - - Weight 86.6 kg (190 lb 14.7 oz) 04/07/2023 2:39 PM EDT Height 158.4 cm (5' 2.36) 04/07/2023 2:39 PM ED T Body Mass Index 34.52 04/07/2023 2:39 PM EDT documented in this encounter Progress Notes * Derek Lindquist MD - 04/07/2023 2:45 PM EDT Subjective Patient ID: Blanca Lujan is 67 y.o. 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 Fibroid uterus ([facility] second read) - IMPRESSION 1. Unexpected findings [...] reveal intact nuclear staining in tumor cells. 2. Anxiety and depression 3. PTSD 4. ADHD 5. ZARA 6. Cataracts, s/p removal HPI Blanca Lujan is seen for evaluation and management of adenocarcinoma of appendix/cecum. The history is summarized above. Blanca is accompanied to clinic today by her daughter Kera. She is feeling fairly well. She says she doesn not have much pain. If she lifts something, she has discomfort in the right groin area. Eating the wrong thing also seems to make it worse. Her appetite is good. She has not lost weight and infact has gained a few pounds. Her energy level ans strength are fair. She says she is not a real active person and has some problems with depression which is harder on her with less sunshine. Becauseof that, this summer has been difficult. She ordinarily would go to [place] this time of year but cannot because of the current illness. Her bowels are working ok. She had diarrhea after a course of a ntibiotics but is doing better with increased fiber. No symptoms of neuropathy. No fevers or chills. Soc Hx:Lives in [place], [place] Tob - Quit in 2010 Etoh [...] normal. Psychiatric: Mood and Affect: Mood normal. Assessment and Plan Blanca Lujan is 67 [...] been requested. I spoke with Dr. Garcia today. She discussed the case with Dr. Juarez (re: CRS and Hipec) and the recommendation was for chemotherapy. The tumor is considered unresectable. Depending on response, we may revisit this. She is seen here for discussion of systemic therapy. I think she needs further staging evaluation including CT of the chest and MRI of the liver. We reviewed the schedule of therapy and potential side effects of Folfox. 5FU, leucovorin and oxaliplatin are given day 1 followed by a 46-48 hour infusion of fluorouracil with cycles repeated every 2 weeks assuming tolerance. Because of the infusional component of therapy, a mediport is required. Potential side effects were discussed, including nausea and vomiting, stomatitis, diarrhea, dehydration, myelosuppression with associated risks of bleeding, infection and dose delays, fatigue, peripheral neuropathy which may be exacerbated by cold exposure but which may be cumulative and permanent even in the absence of cold, angina/SC, hypersensitivity reactions and others. She was given a handout regarding this regimen. I am not planning to give avastin with the first cycle but would consider adding it. New baseline labs and DPYD will be drawn today. We discussed that this may not be covered by insurance and therefore there could be a charge for this. She is agreeable to having it drawn. She has signed a waiver to that effect which will be scanned into her chart. She may be eligible for a clinical trial [id number] - Adaptive, Individualized Dose Escalation of Fluorouracil-Based Chemotherapy for Gastrointestinal Cancer: Ict Developer Study of the PALACIOS Regimen. We reviewed the rationale for this study and she was given an informed consent form to read. Our study team will f/u with her. Will also make a referral to the Familial Cancer Program due to concern for a polyposis syndrome. Plan: Referral to IR for mediport placement New baseline CT c/a/p; MRI abd to evaluate liver lesion F/u on DPYD and NGS RTC in [facility] after mediport to begin chemotherapy with Folfox (+/- clinical trial above) 5. Referral to Familial Cancer Program Addendum: ECOG PS - 1 documented in this encounter Plan of Treatment Upcoming Encounters Date Type Department Care Team (Late st Contact Info) Description 01/28/2024 10:30 AM EDT Office Visit Hematology/Oncolog y at [address] [phone] Derek Lindquist MD [facility] [place] [address] Ann Tello APRN [address] [place] [address] DR HEMATOLOGY [place] [address] 03/24/2024 1:00 PM EDT Hospital Encounter [place] [address] Shilo Lopez MD [facility] [place] [address] 03/24/2024 1:00 PM EDT - 03/24/2024 1:45 PM EDT Surgery [place] [phone] Shilo Lopez MD [facility] [place] [address] COLONOSCOPY, DIAGNOSTIC (WRVU 3.26) Scheduled Orders Name Type Priority Associated Diagnoses Order Schedule Specimen to Pathology Additional Testing Pathology/Cyto logy Routine Adenocarcinoma, appendix Ordered: 04/07/2023 CBC (with Diff) Lab Routine Adenocarcinoma, appendix Every 2 Weeks for 12 Occurrences starting 04/07/2023 until 04/07/2024 Comprehensive metabolic panel (non-fasting) Lab Routine Adenocarcinoma, appendix Every 2 Weeks for 12 Occurrences starting 04/07/2023 until 04/07/2024 CEA Lab Routine Adenocarcinoma, appendix Every 2 Weeks for 12 Occurrences starting 04/07/2023 until 04/07/2024 Scheduled Procedures Name Priority Associated Diagnoses Date/Ti [...] Ordered: 04/07/2023 documented as of this encounter Results * [...] who have questions please contact the health childcare center administrator that requested your imaging first. ? Narrative 04/15/2023 10:19 AM EDT EXAMINATION: CT [...] patients who have questions please contactthe health childcare center administrator that requested your imaging first. Derek Lindquist MD IMG CT ORDERABLES * IR Mediport Placement (04/14/2023 11:25 AM EDT) Anatomical Region Laterality Modality X-Ray Angiograph y Narrative 04/14/2023 11:57 AM EDT Interventional Radiology Procedure Note Procedure: Chest Port Placement Indication: Cecal/appendiceal adenocarcinoma, assisted durable venous access for chemotherapy Informed Consent: After discussing risks (including infection, trauma / damage to surrounding structures, hemorrhage, non-success, amongst others), and benefits of the procedure, the patient consented to the procedure. Monitoring and Sedation Details: Due to the painful nature of the procedure, patient received split doses of intravenous fentanyl and versed from the IR nurse while pulse, pressure, end tidal CO2 parameters and oxygen saturation were continuously monitored. Technique: A standard time-out was conducted just before the start of the procedure to verify all alcaraz aspects; including the correct patient and planned procedure, procedure location, informed consent, and all relevant critical information, all of which were correct. The patient was positioned supine on the procedure table. ??The right neck was cleaned and prepped in typical sterile fashion; maximal sterile barrier technique was used throughout. ?? The right internal jugular vein was sonographically evaluated and determined to be patent. A permanent image was stored. Local anesthetic was administered. The vein was accessed via real-time ultrasound and micropuncture set with 21 gauge needle. A 0.018 wire was advanced into superior vena cava. The remainder of the procedure was performed under fluoroscopic guidance. A 4 Fr introducer sheath was placed and the wire exchanged for a 0.035 J wire. The wire was advanced into the IVC. 1% lidocaine and 2% lidocaine with epinephrine was then infiltrated in a caudal-lateral direction, and infiltrated over a 2x2 cm infraclavicular area for pocket creation. A 2 cm transverse incision was made in the right anterior chest wall, and with blunt dissection a pocket was created. A tunneler was then used to advance the catheter subcutaneously to the venous access site. A 4 Fr introducer sheath was exchanged for a peel-away sheath over the wire. The wire and inner obturator were removed and the catheter advanced into the superior vena cava under fluoroscopic guidance. The catheter was trimmed to appropriate length and attached to the port. The port was inserted into the pocket and the sheath was removed. Catheter tip location was identified and a permanent image was stored. The port flushed and aspirated well. ??The pocket was closed using a two-layer technique with 2-0 vicryl deep interrupted and 4-0 vicryl running sutures. The skin closed was with dermabond. The port was left accessed. Medications: Fentanyl 75 mcg IV, Versed 1.5 mg IV, 1% Lidocaine <10cc subcutaneous, 2% Lidocaine with Epinephrine < 10 cc subcutaneous. Contrast: None. Fluoroscopic Time: 1.0 minutes. Estimated Blood Loss: <10 cc. Complications: ??No immediate. Impression: Implantation of power-injectable, Bard Vas-Cath 8 F single-lumen port in right chest with tip in cavoatrial junction. The port may be used immediately. Plan: Patient to IR recovery unit, may discharge home when meets criteria. Resident / Fellow: None. Attending of record: Dr. David Bower I, Dr. Bower, was present throughout the procedure. I was present during the intraservice time as documented by the IR Nurse. ?? Derek Lindquist MD [facility] IR ORDERABLES * DPYD PCR (04/07/2023 4:14 PM EDT) DPYD PCR Interp INDICATION FOR STUDY: DPYD Genotyping RESULTS: Normal metabolizer, *1/*1 genotype INTERPRETATION: ??Normal genotype, with normal expected enzyme activity. Absence of a variant does not rule out the possibility of an undetected polymorphism. This result does not replace the need for therapeutic drug or clinical monitoring. METHODS: The DPYD genotyping assay tested for the presence of the following three variants using a TaqMan allelic discrimination assay and detection of normal and mutant probes for each variant: DPYD*2A ??(c.1905+1G>A, [id number]), DPYD*13 (c.1679T>G , [id number]), and DPYD c.2846A>T ([id number]). All variant positions are provided on the canonical transcript ([id number]). Genomic DNA was isolated from the submitted peripheral blood specimen. Real-time PCR was performed to amplify a short region spanning the variant site, and genotyping was performed by allelic discrimination using a mixture of fluorescently labeled probes, one of which is specific to the reference sequence, the other specific to the variant target. LIMITATIONS AND DISCLAIMERS: ??Although unlikely, rare variants or polymorphisms (known or unknown) have the potential to interfere with the performance of this test, producing false negative or false positive results. ??When genotyping results are not consistent with other clinical observations or test results, additional testing should be considered. This test was developed and its performance determined by the laboratory for Clinical Genomics and Advanced Technology (CGAT) at the [facility]. It has not been cleared or approved by the U.S. Food and Drug Administration. The laboratory is regulated under CLIA as qualified to perform high-complexity testing. This test is used for clinical purposes. It should not be regarded as investigational or for research. REFERENCES: 1. CPIC?? Guideline for Fluoropyrimidines and DPYD. https://cpicpgx.org/ 2. Izzy et al., Clinical Pharmacogenetics Implementation Consortium (CPIC) Guideline for Dihydropyrimidine Dehydrogenase Genotype and Fluoropyrimidine Dosin Update. Clin Pharmacol Ther. 2018 Jul;103(2):210-216. PMID: 31963071 3. Ralph Ma, Brian See, et al. Fluorouracil Therapy and DPYD Genotype. In: Medical Genetics Summaries [Internet]. [place]): National Center for Biotechnology Information ([place]); 2011? 2015 3. PMID: [id number] [facility] Blood 04/07/2023 4:14 PM EDT 04/08/2023 8:29 AM EDT Narrative Resulting Agency Comment Spec In Lab Derek Lindquist MD MOLECULAR ORDERABLES Performing Organization Address [facility] Co de Phone Number [facility] [place] [address] * (ABNORMAL) CEA (04/07/2023 4:14 PM EDT) Carcinoembryonic Antigen 16.3(H) <=3.8 ng/mL [facility] Comment: Reference range: ??(20-69 years): Non-smoker: ??less than or equal to 3.8 ng/mL Smoker: ??less than 5.5 ng/ml This result was generated using a [employer] immunoassay. ??Results obtained from other methods or manufacturers cannot be used interchangeably with this method. Blood 04/07/2023 4:14 PM EDT 04/07/2023 4:22 PM EDT Narrative Resulting Agency Comment Spec In Lab Derek Lindquist MD CHEMISTRY ORDERABLES Performing Organization Address [facility] Co de Phone Number [facility] [place] [address] * Comprehensive metabolic panel (non-fasting) (04/07/2023 4:14 PM EDT) Glucose 85 65 - 199 mg/dL [facility] Comment:Diabetes: >=200 mg/d L plus symptoms Blood Urea Nitrogen 16 8 - 18 mg/dL [facility] Creatinine 0.75 0.70 - 1.20 mg/dL [facility] Sodium 139 135 - 145 mmol/L [facility] Potassium 4.0 3.5 - 5.0 mmol/L [facility] Comment: Please note: ??Patients with WBC >100,000 may have falsely elevated Potassium levels. ??For accurate Potassium quantification in these patients send serum separator tube (gold top) for subsequent determinations. ??Contact the Clinical Chemistry Laboratory if there are any questions. Chloride 101 98 - 107 mmol/L [facility] Carbon Dioxide 26 22 - 31 mmol/L [facility] Anion Gap 12 5 - 15 mmol/L [facility] Calcium 9.6 8.5 - 10.5 mg/dL [facility] Protein, Total 7.7 6.1 - 8.0 g/dL [facility] Albumin 4.6 3.2 - 5.2 g/dL [facility] Aspartate Aminotransferase 19 0 - 30 unit/L [facility] Alanine Aminotransferase 26 0 - 30 unit/L [facility] Alkaline Phosphatase 82 35 - 105 unit/L [facility] Bilirubin, Total 0.3 0.2 - 1.3 mg/dL [facility] Est Glomerular Filtration Rate 88 >=60 mL/min/1. 73 m?? [facility] Comment: This patient's estimated [...] and symptoms in addition to eGFR. 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
--- OUTSIDE RECORDS SUMMARY | 2024-01-26 03:10 | XMS_ITS | Encounter Summary ---
Author Organization [facility] Address [address] [place] [address] Care Team Providers Care Lead Carpenter Name Role Phone Shruthi Arrington MD Primary Care Provider [phone] Encounter Details Date Type Department Care Team (Late st Contact Info) Description 06/10/2023 Lab Requisition [facility] Pathology & Laboratory Medicine - [address] [id number] Outr Resulting Lab, Provider Social History Tobacco [...] Priority Date/Time Associated Diagnosis Comments CEA Routine 06/10/2023 14:08 EST documented in this encounter Results * CEA (06/10/2023 14:08 EST) CEA 5.7 See Note ng/mL 06/10/2023 22:10 EST [facility] Comment: % Distribution of CEA (ng/mL): ??0.0 - 2.5 in 98.2% of Nonsmokers and 87.3% of Smokers ??2.6 - 5 in 1.8% of Nonsmokers and 8% of Smokers ??5.1 - 10.1 in 4.7% of Smokers NOTE: Serum CEA concentration should not be interpeted as absolute evidence for the presence or absence of malignant disease. ?? Assayed on [employer]ens [employer] XPT using chemiluminescent technology. ??Values obtained by different assay methods cannot be used interchangeably. Blood VENOUS BLOOD / Unknown 06/10/2023 14:08 EST 06/10/2023 21:22 EST Provider Outr Resulting Lab CHEMISTRY & BLOOD GAS ORDERABLES [facility] [address] [place] [address] documented in this encounter Visit Diagnoses Not on filedocumented in this encounter Care Teams Lead Carpenter Relationship Specialty Start Date End Date Shruthi Arrington MD [address] [place] [address] PCP - General 09/16/15 documented as of this encounter
--- OUTSIDE RECORDS SUMMARY | 2024-01-26 03:10 | XMS_ITS | Encounter Summary ---
Author Organization [facility] [place] [address] Care Team Providers Care Tanker Truck Driver Name Role Phone Shruthi Arrington MD Primary Care Provider Encounter Details Date Type Department Care Team (Latest Contact Info) Description 03/26/2023 2:55 PM EDT Ancillary Procedure [place] [id number] Andrea Mcintosh MD [facility] [place] [address] Malignant neoplasm of overlapping sites of colon [...] EDT Office Visit Hematology/Oncolog y at [address] [phone] Derek Lindquist MD [facility] [place] [address] Ann Tello APRN [address] [place] [address] DR HEMATOLOGY AND ONCOLOGY [place], [place] [id number] 03/24/2024 1:00 PM EDT Hospital Encounter [place] [address] Shilo Lopez MD [facility] [place] [address] 03/24/2024 1:00 PM EDT - 03/24/2024 1:45 PM EDT Surgery [place] [phone] Shilo Lopez MD [facility] [place] [address] COLONOSCOPY, DIAGNOSTIC (WRVU 3.26) Scheduled Procedures Name [...] Procedure Name Priority Date/Time Associated Diagnosis Comments REQUEST FOR 2ND READ CT ABDOMEN AND PELVIS Routine 03/26/2023 2:45 PM EDT Malignant neoplasm of overlapping sites of colon documented in this encounter Results * (ABNORMAL) Request For 2nd Read CT Abdomen & Pelvis (03/26/2023 2:45 PM EDT) Anatomical Region Laterality Modality Abdomen, Pelvis SO Impressions 03/28/2023 6:27 PM EDT 1. ??Unexpected findings concerning for contained perforation of mucocele of the appendix with superimposed chronic inflammatory process. Alternatively, this may reflect extension of a cecal malignancy into the appendix with secondary extension to the right lower quadrant abdominal wall and iliopsoas musculature as described. 2. ??Differential diagnosis includes contained chronic appendicitis perforation underlying or superimposed findings most concerning for malignancy given the presence of right lower quadrant lymph nodes and ill-defined hepatic mass. 3. ??Further evaluation of liver mass with MRI is suggested. 4. 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 Sonographic correlation suggested. 5. ??Diverticulosis. Thank you for letting us participate in the care of this patient. ??If you are a health care provider and have any questions regarding this report, please contact the number below. ??For patients who have questions please contact the health long term care phlebotomist that requested your imaging first. ? Electronically signed by: Shayla Rosas MD, [facility] ([phone]), at 03/28/2023 6:27 PM Narrative 03/28/2023 6:27 PM EDT EXAMINATION: REQUEST FOR 2ND READ CT ABDOMEN AND PELVIS CLINICAL HISTORY: mass of cecum or appendix; evaluate for peritoneal metastasis; What Modality is the exam? CT Scan; Body Part (please add comments as necessary): abdomen and pelvis; Sending Institution [facility]; Date of exam [id number]; I believe a reinterpretation of this exam may alter care of Patient. Yes TECHNIQUE: Helical CT of the abdomen and pelvis following the intravenous administration of contrast. 100 cc Omnipaque 350 intravenous contrast. Oral contrast was administered. Study performed February 19, 2023 at [facility] COMPARISON: October 09, 2021 FINDINGS: Lower chest: Normal. Liver: Diffuse fatty infiltration. Mixed density lesion medial central aspect of the medial liver lobe abutting the gallbladder fossa with hypodense penumbra anteriorly, laterally and caudally in an otherwise poorly defined margin. This measures 1.6 x 2.5 x 3.2 cm. Bile ducts: Nondilated. Gallbladder: No calcified gallstones. Normal caliber wall. Pancreas: Normal attenuation without ductal dilatation. Spleen: Normal. Adrenals: Normal. Kidneys: Normal. Urinary Bladder: Normal. Vasculature: Normal caliber abdominal aorta. Patent renal, portal and hepatic veins. Lymph Nodes: Subcentimeter short axis periportal and portacaval lymph nodes are stable. Subcentimeter retroperitoneal lymph nodes are stable in size and number. New right lower quadrant lymph nodes, largest 9 mm short axis Bowel: Diverticulosis without acuity. Thickened lateral wall of the sigmoid colon as this passes over the right gonadal vein. No surrounding inflammatory changes. Heterogeneous enhancement through the thickened partially distended appendix to the thickened cecum and ileocecal valve. Peritoneum and retroperitoneum: Trace pelvic ascites. No omental caking. Amorphous soft tissue tethering the thickened cecum and appendix to overlying normal caliber small bowel, to the right adnexa. Complex multiloculated peripherally enhancing right lower quadrant mass, contiguous to the thickened appendix, thickened cecal wall and fluid tract extending into the right lower quadrant with associated thickening of suspensory ligaments and soft tissue nodularity. Abdominal wall: Asymmetric thickening and enlargement at the insertion of the right caudal aspect of the lateral abdominal wall musculature containing loculated peripherally enhancing 1.3 x 1.9 x 2.2 cm collection that is contiguous via tubular mixed density tract, cranially to the aforementioned close versus shaped loculated heterogeneously enhancing mass or collection contiguous to the thickened appendix. Asymmetric enlargement of the right iliopsoas muscle containing 2.8 x 4.5 x 5 cm hypodense peripherally enhancing collection, contiguous via a hypodense soft tissue or fluid filled tract to the thickened cecum at the appendix origin. Reproductive organs: Lobulated uterine contour. Hypodense masses with dystrophic calcification. Osseous structures: Stable spiculated sclerotic lesion at the left acetabulum may reflect a bone island. No suspicious lytic expansile nor sclerotic osseous lesions. Resulting Agency Comment Unexpected Finding Andrea Mcintosh MD [facility] OUTSIDE INTERPRE TATION ORDERABLES documented in this encounter Visit Diagnoses Diagnosis Malignant neoplasm of overlapping sites of colon Malignant neoplasm of other specified sites of large intestine documented in this encounter Care Teams Tanker Truck Driver Relationship Specialty Start Date End Date Shruthi Arrington MD [address] [place] [address] PCP - General 05/06/10 06/24/23 documented as of this encounter
--- OUTSIDE RECORDS SUMMARY | 2024-01-26 03:10 | XMS_ITS | Encounter Summary ---
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 Social [...] EDT Office Visit Hematology/Oncolog y at [address] [phone] Derek Lindquist MD [facility] [place] [address] Ann Tello APRN [address] [place] [address] DR HEMATOLOGY [place] [address] 03/24/2024 1:00 PM EDT Hospital Encounter [place] [address] Shilo Lopez MD [facility] [place] [address] 03/24/2024 1:00 PM EDT - 03/24/2024 1:45 PM EDT [place] [address] Shilo oLpez MD [facility] [place] [address] COLONOSCOPY, DIAGNOSTIC (WRVU 3.26) Scheduled Procedures Name [...] Priority Date/Time Associated Diagnosis Comments HEMOGRAM Routine 04/14/2023 3:49 PM EDT Adenocarcinoma of appendix DIFFERENTIAL, AUTOMATED Routine 04/14/2023 3:49 PM EDT Adenocarcinoma of appendix CBC (WITH DIFF) Routine 04/14/2023 3:49 PM EDT Adenocarcinoma of appendix CEA Routine 04/14/2023 3:49 PM EDT Adenocarcinoma of appendix COMPREHENSIVE METABOLIC PANEL Routine 04/14/2023 3:49 PM EDT Adenocarcinoma of appendix documented in this encounter Results * Differential, Automated (04/14/2023 3:49 PM EDT) Neutrophil % 56.6 % [facility] Neutrophil Absolute 4.45 1.70 - 6.10 x10(3)/[facility] Lymph % 28.9 % [facility] Lymphocytes Abs 2.3 0.9 - 3.2 x10(3)/[facility] Monocyte % 8.9 % [facility] Monocyte Abs 0.7 0.3 - 0.9 x10(3)/[facility] Eos % 4.2 % [facility] Eosinophils Abs 0.3 0.0 - 0.4 x10(3)/[facility] Basophil % 1.0 % [facility] Baso Absolute 0.1 0.0 - 0.1 x10(3)/[facility] Immature Gran % 0.40 % [facility] Comment: Immature granulocytes(IG's)percentage and absolute count will include metamyelocytes, myelocytes, and promyelocytes. Blood smears from CBCs yielding IG's will be scanned manually for concordance. If this scan disagrees with the automated IG or if promyelocytes are noted, a manual differential will be performed. Immature Gran Absolute 0.03 0.00 - 0.04 x10(3)/[facility] Blood 04/14/2023 3:49 PM EDT 04/14/2023 3:49 PM EDT Narrative Resulting Agency Comment Spec In Lab Derek Lindquist MD HEMATOLOGY ORDERABLE S [facility] [place] [address] * (ABNORMAL) Hemogram (04/14/2023 3:49 PM EDT) White Blood Cell 7.9 4.0 - 9.5 x10(3)/mc L [facility] Red Blood Cell 4.58 4.00 - 5.21 x10(6)/mc L [facility] Hemoglobin 13.5 11.7 - 15.5 g/dL [facility] Hematocrit 38.3 35.7 - 45.8 % [facility] Mean Cell Volume 83.6 82.6 - 94.4 fL [facility] Mean Cell Hemoglobin 29.5 27.1 - 32.0 pg [facility] Mean Cell Hemoglobin Concentration 35.2(H) 31.7 - 35.0 g/dL [facility] Platelet 229 145 - 357 x10(3)/mc L [facility] RDW Standard Deviation 37.7 37.0 - 46.0 fL [facility] RDW coefficient of variation 12.5 11.5 - 14.1 % [facility] Mean Platelet Volume 9.9 7.6 - 12.9 fL [facility] NRBC% auto 0.0 % [facility] NRBC Absolute 0.000 0.000 - 0.000 x10(3)/ L [facility] Blood 04/14/2023 3:49 PM EDT 04/14/2023 3:49 PM EDT Narrative Resulting Agency Comment Spec In Lab Derek Lindquist MD HEMATOLOGY ORDERABLE S [facility] [place] [address] * (ABNORMAL) Comprehensive metabolic panel (non-fasting) (04/14/2023 3:49 PM EDT) Glucose 125 65 - 199 mg/dL [facility] Comment:Diabetes: >=200 mg/d L plus symptoms Blood Urea Nitrogen 15 8 - 18 mg/dL [facility] Creatinine 0.68(L) 0.70 - 1.20 mg/dL [facility] Sodium 137 135 - 145 mmol/L [facility] Potassium 4.1 3.5 - 5.0 mmol/L [facility] Comment: Please note: ??Patients with WBC >100,000 may have falsely elevated Potassium levels. ??For accurate Potassium quantification in these patients send serum separator tube (gold top) for subsequent determinations. ??Contact the Clinical Chemistry Laboratory if there are any questions. Chloride 101 98 - 107 mmol/L [facility] Carbon Dioxide 27 22 - 31 mmol/L [facility] Anion Gap 9 5 - 15 mmol/L [facility] Calcium 8.7 8.5 - 10.5 mg/dL [facility] Protein, Total 6.6 6.1 - 8.0 g/dL [facility] Albumin 3.9 3.2 - 5.2 g/dL [facility] Aspartate Aminotransferase 16 0 - 30 unit/L [facility] Alanine Aminotransferase 14 0 - 30 unit/L [facility] Alkaline Phosphatase 70 35 - 105 unit/L [facility] Bilirubin, Total 0.3 0.2 - 1.3 mg/dL [facility] Est Glomerular Filtration Rate 97 >=60 mL/min/1. 73 m?? [facility] Comment: This patient's estimated GFR was [...] In Lab Derek Lindquist MD CHEMISTRY ORDERABLES [facility] [place] [address] * (ABNORMAL) CEA (04/14/2023 3:49 PM EDT) Carcinoembryonic Antigen 14.2(H) <=3.8 ng/mL [facility] Comment: Reference range: ??(20-69 years): Non-smoker: ??less than or equal to 3.8 ng/mL Smoker: ??less than 5.5 ng/ml This result was generated using a Steven Grisel immunoassay. ??Results obtained from other methods or manufacturers cannot be used interchangeably with this method. 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
--- OUTSIDE RECORDS SUMMARY | 2024-01-26 03:10 | XMS_ITS | Encounter Summary ---
Author Organization [facility] Address [address] [place] [address] Care Team Providers Care Contracts Manager Name Role Phone Shruthi Arrington MD Primary Care Provider [phone] Encounter Details Date Type Department Care Team (Late st Contact Info) Description 05/27/2023 Lab Requisition [facility] Pathology & Laboratory Medicine - [address] [phone] Outr Resulting Lab, Provider Social History Tobacco [...] Priority Date/Time Associated Diagnosis Comments CEA Routine 05/27/2023 12:55 EST documented in this encounter Results * CEA (05/27/2023 12:55 EST) CEA 4.5 See Note ng/mL 05/27/2023 23:43 EST [facility] Comment: % Distribution of CEA (ng/mL): ??0.0 - 2.5 in 98.2% of Nonsmokers and 87.3% of Smokers ??2.6 - 5 in 1.8% of Nonsmokers and 8% of Smokers ??5.1 - 10.1 in 4.7% of Smokers NOTE: Serum CEA concentration should not be interpeted as absolute evidence for the presence or absence of malignant disease. ?? Assayed on Siemens ADVIA ePrepaur XPT using chemiluminescent technology. ??Values obtained by different assay methods cannot be used interchangeably. Blood VENOUS BLOOD / Unknown 05/27/2023 12:55 EST 05/27/2023 22:04 EST Provider Outr Resulting Lab CHEMISTRY & BLOOD GAS ORDERABLES [facility] [address] [place] [address] documented in this encounter Visit Diagnoses Not on filedocumented in this encounter Care Teams Contracts Manager Relationship Specialty Start Date End Date Shruthi Arrington MD [address] [place] [address] PCP - General 09/16/15 documented as of this encounter
--- OUTSIDE RECORDS SUMMARY | 2024-01-26 03:10 | XMS_ITS | Encounter Summary ---
Author Organization [facility] Address [address] [place] [address] Care Team Providers Care Battery Wrecker Operator Name Role Phone Shruthi Arrington MD Primary Care Provider [phone] Encounter Details Date Type Department Care Team (Late st Contact Info) Description 07/22/2023 Lab Requisition [facility] Pathology & Laboratory Medicine - [address] [phone] Outr Resulting Lab, Provider Social History Tobacco [...] Priority Date/Time Associated Diagnosis Comments CEA Routine 07/22/2023 13:11 EST documented in this encounter Results * CEA (07/22/2023 13:11 EST) CEA 3.3 See Note ng/mL 07/22/2023 22:46 EST [facility] Comment: % Distribution of CEA (ng/mL): ??0.0 - 2.5 in 98.2% of Nonsmokers and 87.3% of Smokers ??2.6 - 5 in 1.8% of Nonsmokers and 8% of Smokers ??5.1 - 10.1 in 4.7% of Smokers NOTE: Serum CEA concentration should not be interpeted as absolute evidence for the presence or absence of malignant disease. ?? Assayed on Siemens ADVIA [employer]in[employer] Systemsaur XPT using chemiluminescent technology. ??Values obtained by different assay methods cannot be used interchangeably. Blood VENOUS BLOOD / Unknown 07/22/2023 13:11 EST 07/22/2023 21:27 EST Provider Outr Resulting Lab CHEMISTRY & BLOOD GAS ORDERABLES [facility] [address] [place] [address] documented in this encounter Visit Diagnoses Not on filedocumented in this encounter Care Teams Battery Wrecker Operator Relationship Specialty Start Date End Date Shruthi Arrington MD [address] [place] [address] PCP - General 09/16/15 documented as of this encounter
--- OUTSIDE RECORDS SUMMARY | 2024-01-26 03:10 | XMS_ITS | Encounter Summary ---
Author Organization [facility] [place] [address] Care Team Providers Care Material Coordinator Name Role Phone Shruthi Arrington MD Primary Care Provider [phone] Encounter Details Date Type Department Care Team (Late st Contact Info) Description 04/08/2023 [place] [address] Ham Love PA [facility] [place] [address] Social History Tobacco Use Types Packs/Day Years [...] H&P Notes * Ham Love PA - 04/08/2023 10:12 AM EDT Interventional Radiology Focused Pre-procedure H&P: PCP: Shruthi Arrington MD Planned procedure: Chest port placement Procedure indication: Cecal/appendiceal adenocarcinoma, jail durable venous access for chemotherapy IR workflow: Procedure request received through Interventional Radiology eDH order queue. History of present illness: Per chart review, Blanca Lujan is a 67 y.o. female who presents to Interventional Radiology to undergo chest port implant. This is a patient with diagnosis of cecal adenocarcinoma. Planning for systemic chemotherapy. Next infusion TBD Remainder of patient's medical and surgical history, allergies, medications, and social/family history obtained below as previously outlined in patient's medical record. 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 Plan Planned procedure: Chest port placement Labs to be performed day of procedure: No labs Sedation: Moderate (Conscious sedation) Prophylactic antibiotic : None Contrast: No contrast Additional medications for procedure: Lidocaine Position: Supine Consent: Pending Medications to discontinue (and days held): None Cytopathology presence needed: No Case Urgency:: G1-Elective Outpatient intervention within 4-7 days Labs: Lab Results Component Value Date HGB 15.0 04/07/2023 HCT 43.3 04/07/2023 WBC 8.9 04/07/2023 PLATELET 274 04/07/2023 BUN 16 04/07/2023 CREATININE 0.75 04/07/2023 ALBUMIN 4.6 04/07/2023 BILITOT 0.3 04/07/2023 AST 19 04/07/2023 ALT 26 04/07/2023 ALKPHOS 82 04/07/2023 Allergies: Bactrim [sulfamethoxazole-trimethoprim] and Keflex [cephalexin] Medications: Current Outpatient Medications on File Prior to Visit Medication Sig Dispense Refill cholecalciferol, Vitamin D3, (Vitamin D3) 50 mcg (2,000 unit) tablet TAKE 1 TO 2 CAPSULES BY MOUTH DAILY b complex vitamins Capsule Take 1 capsule by mouth every morning. Acetylcysteine (NAC) 600 mg capsule 600 mg. [...] file. Past Surgical History: Procedure Laterality Date PRO COLONOSCOPY, BIOPSY N/A 03/16/2023 COLONOSCOPY FLEXIBLE, WITH BX (WRVU 3.56) performed by Shilo Lopez MD at [facility] ENDOSCOPY PRO UNLISTED PX RECTUM N/A 03/16/2023 LOWER EUS- ENDOSCOPIC ULTRASOUND (WRVU 7.56) performed by Shilo Lopez MD at [facility] ENDOSCOPY PRO UPGI ENDOSCOPY W/US FN BX 03/16/2023 EGD, W US GUIDED FINE NEEDLE ASPIRATION/BIOPSY (WRVU 4.16) performed by Shilo Lopez MD at [facility] ENDOSCOPY Social history and habits: Social History Tobacco Use Smoking status: Former Types: Cigarettes Smokeless tobacco: Never Vaping Use Vaping Use: Never used Substance Use Topics Alcohol use: Yes Comment: few times yearly Drug use: Yes Frequency: 7.0 times per week Types: Marijuana Significant family history: No family history on file. Pertinent ROS: as per HPI Physical exam: Pending (to be performed in interventional radiology the day of procedure) ASA: Pending (to be assessed in interventional radiology the day of procedure) Mallampati class: Pending (to be assessed in interventional radiology the day of procedure) 04/08/2023 JANELLE Ramirez documented in this encounter Plan of Treatment Upcoming Encounters Date Type Department Care Team (Late st Contact Info) Description 01/28/2024 10:30 AM EDT Office Visit Hematology/Oncolog y at [address] [phone] Derek iLndquist MD [facility] [place] [address] Ann Tello APRN [address] [place] [address] [place] [address] 03/24/2024 1:00 PM EDT Hospital Encounter [place] [address] Shilo Lopez MD [facility] [place] [address] 03/24/2024 1:00 PM EDT - 03/24/2024 1:45 PM EDT [place] [address] Shilo Lopez MD [facility] [place] [address] COLONOSCOPY, DIAGNOSTIC (WRVU 3.26) Scheduled Procedures Name [...] on filedocumented in this encounter Care Teams Material Coordinator Relationship Specialty Start Date End Date Shruthi Arrington MD [address] [place] [address] PCP - General 05/06/10 06/24/23 documented as of this encounter
--- OUTSIDE RECORDS SUMMARY | 2024-01-26 03:10 | XMS_ITS | Encounter Summary ---
Author Organization [facility] Address [facility] [place] [address] Care Team Providers Care Well Blower Name Role Phone Shruthi Arrington MD Primary Care Provider [phone] Encounter Details Date Type Department Care Team (Late st Contact Info) Description 03/26/2023 Orders Only Hematology [place] [address] Andrea Mcintosh MD [facility] [place] [address] Malignant neoplasm of overlapping sites of colon [...] AM EDT Office Visit Hematology/Oncolog y at [address] [phone] Derek Lindquist MD [facility] [address] Ann Tello APRN [address] [place] [address] DR HEMATOLOGY [place] [address] 03/24/2024 1:00 PM EDT Hospital Encounter [place] [address] Shilo Lopez MD [facility] [place] [address] 03/24/2024 1:00 PM EDT - 03/24/2024 1:45 PM EDT Surgery [place] [address] Shilo Lopez MD [facility] [place] [address] COLONOSCOPY, DIAGNOSTIC (WRVU 3.26) Scheduled Procedures Name Priority Associated Diagnoses Date/Ti me COLONOSCOPY, DIAGNOSTIC (WRVU 3.26) Procedure: Colonoscopy Indication: Malignant neoplasm of colon, unspecified part of colon and History of partial colectomy Sedation: IVCS Timeframe: within 2 weeks Specific provider: first available OV needed: No Anticoagulation status: no documented anticoagulation use 03/24/2024 1:00 PM EDT documented as of this encounter Results * (ABNORMAL) Request For [...] who have questions please contact the health care attendant that requested your imaging first. ? Narrative 03/28/2023 6:27 PM EDT EXAMINATION: REQUEST FOR 2ND READ CT ABDOMEN AND PELVIS CLINICAL HISTORY: mass of cecum or appendix; evaluate for peritoneal metastasis; What Modality is the exam? CT Scan; Body Part (please add comments as necessary): abdomen and pelvis; Sending Institution [facility]; Date of exam [id number]; I believe a reinterpretation of this exam may alter care of Patient. Yes TECHNIQUE: Helical CT of the abdomen and pelvis following the intravenous administration of contrast. 100 cc Omnipaque 350 intravenous contrast. Oral contrast was administered. Study performed February 19, 2023 at [facility] COMPARISON: October 09, 2021 FINDINGS: Lower [...] of other specified sites of large intestine Malignant neoplasm of overlapping sites of colon Malignant neoplasm of other specified sites of large intestine documented in this encounter Care Teams Well Blower Relationship Specialty Start Date End Date Shruthi Arrington MD [address] [place] [address] PCP - General 05/06/10 06/24/23 documented as of this encounter
--- OUTSIDE RECORDS SUMMARY | 2024-01-26 03:10 | XMS_ITS | Encounter Summary ---
Author Organization [facility] Address [address] [place] [address] Care Team Providers Care Manager Fashion Name Role Phone Shruthi Arrington MD Primary Care Provider Encounter Details Date Type Department Care Team (Late st Contact Info) Description 08/05/2023 Lab Requisition [facility] Pathology & Laboratory Medicine - [address] [id number] Outr Resulting Lab, Provider Social History Tobacco [...] Priority Date/Time Associated Diagnosis Comments CEA Routine 08/05/2023 12:35 EST documented in this encounter Results * CEA (08/05/2023 12:35 EST) CEA 3.5 See Note ng/mL 08/05/2023 22:[address] [facility] Comment: % Distribution of CEA (ng/mL): ??0.0 - 2.5 in 98.2% of Nonsmokers and 87.3% of Smokers ??2.6 - 5 in 1.8% of Nonsmokers and 8% of Smokers ??5.1 - 10.1 in 4.7% of Smokers NOTE: Serum CEA concentration should not be interpeted as absolute evidence for the presence or absence of malignant disease. ?? Assayed on Siemens ADVIA RUSBASEaur XPT using chemiluminescent technology. ??Values obtained by different assay methods cannot be used interchangeably. Blood VENOUS BLOOD / Unknown 08/05/2023 12:35 EST 08/05/2023 21:10 EST Provider Outr Resulting Lab CHEMISTRY & BLOOD GAS ORDERABLES [facility] [address] [place] [address] documented in this encounter Visit Diagnoses Not on filedocumented in this encounter Care Teams Manager Fashion Relationship Specialty Start Date End Date Shruthi Arrington MD [address] [place] [address] PCP - General 09/16/15 documented as of this encounter
--- OUTSIDE RECORDS SUMMARY | 2024-01-26 03:10 | XMS_ITS | Encounter Summary ---
Author Organization [facility] Address [facility] [place] [address] Care Team Providers Care Engineering Inspector Name Role Phone Shruthi Arrington MD Primary Care Provider [phone] Encounter Details Date Type Department Care Team (Latest Contact Info) Description 04/07/2023 Travel Social History Tobacco Use Types Packs/Day [...] EDT Office Visit Hematology/Oncolog y at [address] [phone] Derek Lindquist MD [facility] [place] [address] Ann Tello APRN [address] [place] [address] DR [place] [address] 03/24/2024 1:00 PM EDT Hospital Encounter [place] [address] Shilo Lopez MD [facility] [place] [address] 03/24/2024 1:00 PM EDT - 03/24/2024 1:45 PM EDT [place] [address] Shilo Lopez MD [facility] [place] [address] COLONOSCOPY, DIAGNOSTIC (WRVU 3.26) Scheduled Procedures Name [...] on filedocumented in this encounter Care Teams Engineering Inspector Relationship Specialty Start Date End Date Shruthi Arrington MD [address] [place] [address] PCP - General 05/06/10 06/24/23 documented as of this encounter
--- OUTSIDE RECORDS SUMMARY | 2024-01-26 03:10 | XMS_ITS | Encounter Summary ---
Author Organization [facility] [place] [address] Care Team Providers Care Web Merchant Name Role Phone Shruthi Arrington MD Primary Care Provider [phone] Encounter Details Date Type Department Care Team (Late st Contact Info) Description 04/13/2023 Telephone Hematology [place] [phone] Maria Fernanda Alford RN Social History Tobacco Use Types Packs/Day [...] Miscellaneous Notes * Telephone Encounter - Maria Fernanda Alford RN - 04/13/2023 8:21 AM EDT Message received from clinical executive secretary social welfare: Pt wants to know if she can fly. Please call [phone] Call placed to patient who explains that she is just curious if she would be able to still fly. Does not have any trips planned but was just wondering. Explained that she can still fly would recommend that she wear compression stockings and get up andwalk around multiple times during the flight if it's a long flight. Instructed patient to keep clinic updated on plans. Pt verbalized understanding and agreement and knows to call clinic with any concerns and/or questions. documented in this encounter Plan of Treatment Upcoming Encounters Date Type Department Care Team (Late st Contact Info) Description 01/28/2024 10:30 AM EDT Office Visit Hematology/Oncolog y at [address] [phone] Derek Lindquist MD [facility] [place] [address] Ann Tello APRN [address] [place] [address] DR HEMATOLOGY AND ONCOLOGY [place], [place] [address] 03/24/2024 1:00 PM EDT Hospital Encounter Gastroenterology at [place] [phone] Shilo Lopez MD [facility] [place] [address] 03/24/2024 1:00 PM EDT - 03/24/2024 1:45 PM EDT [place] [phone] Shilo Lopez MD [facility] [place] [address] COLONOSCOPY, DIAGNOSTIC (WRVU 3.26) Scheduled Procedures Name [...] on filedocumented in this encounter Care Teams Web Merchant Relationship Specialty Start Date End Date Shruthi Arrington MD [address] [place] [address] PCP - General 05/06/10 06/24/23 documented as of this encounter
--- OUTSIDE RECORDS SUMMARY | 2024-01-26 03:10 | XMS_ITS | Encounter Summary ---
Author Organization [facility] Address [facility] [place] [address] Care Team Providers Care Metal Mold Dresser Name Role Phone Shruthi Arrington MD Primary Care Provider Reason for Referral * Consultation (Urgent) - Closed Specialty Diagnoses / Procedures Referred By Contac t Referred To Contact Gastroenterology Diagnoses Colonic mass Abnormal CT scan, gastrointestinal tract Procedures Lower Eus with Guzman or me in the next two weeks Colonic mass Ema Garcia MD [facility] [place] [address] Shilo Loepz MD [facility] [place] [address] Referral ID Status Reason Start Date Expiration Date V isits Requested Visits Authorized [id number] Closed Consult, Test & Treat 03/02/2023 03/01/2024 1 1 Encounter Details Date Type Department Care Team (Late st Contact Info) Description 03/02/2023 Orders [place] [address] Ema Garcia MD [facility] [place] [address] Colonic mass; Abnormal CT scan, gastrointestinal tract Social History Tobacco Use Types Packs/Day Years [...] EDT Office Visit Hematology/Oncolog y at [address] [phone] Derek Lindquist MD [facility] [place] [place] [address] Ann Tello APRN [address] [place] [address] DR [place]Y [place] [address] 03/24/2024 1:00 PM EDT Hospital Encounter [place] [phone] Shilo Lopez MD [facility] [place] [address] 03/24/2024 1:00 PM EDT - 03/24/2024 1:45 PM EDT [place] [phone] Shilo Lopez MD [facility] [place] [address] COLONOSCOPY, DIAGNOSTIC (WRVU 3.26) Scheduled Procedures Name [...] Associated Diagnoses Orde r Schedule Referral to Gastroenterology Outpatient Referral Urgent Colonic mass Abnormal CT scan, gastrointestinal tract Ordered: 03/02/2023 documented as of this encounter Visit Diagnoses Diagnosis Colonic mass Other specified disorder of intestines Abnormal CT scan, gastrointestinal tract Nonspecific (abnormal) findings on radiological and other examination of gastrointestinal tract documented in this encounter Care Teams Metal Mold Dresser Relationship Specialty Start Date End Date Berrian, Shruthi M, MD [address] [place] [address] PCP - General 05/06/10 06/24/23 documented as of this encounter
--- OUTSIDE RECORDS SUMMARY | 2024-01-26 03:10 | XMS_ITS | Encounter Summary ---
Author Organization [facility] Address [place] [address] Care Team Providers Care Lacing Operator Name Role Phone Shruthi Arrington MD Primary Care Provider [phone] Reason for Visit * Reason Comments Establish Care * Consultation (Urgent) - Closed Specialty Diagnoses / Procedures Referred By Contsarbjit t Referred To Contact General Surgery Diagnoses Cecal lesion Hina Johnson [address] [place] [address] [facility] Gen Surgery [address] [place] [address] Referral ID Status Reason Start Date Expiration Date V isits Requested Visits Authorized [id number] Closed Consult, Test & Treat PCP Updated and/or Approved 02/19/2023 02/19/2024 12 12 Encounter Details Date Type Department Care Team (Latest Contact Info) Description 02/25/2023 10:30 AM EDT Office [place] [address] Ema Garcia MD [facility] [place] [address] Colonic mass; Malignant neoplasm of overlapping sites of colon; Abnormal CT scan, gastrointestinal tract; Elevated carcinoembryonic antigen (CEA) Social History Tobacco Use Types Packs/Day Years Used Date Smoking Tobacco: Former Cigarettes Tobacco Cessation:Counseling Given: Not Answered Sex and Gender Information Value Date Recorded Sex Assigned at Not on file Gender Identity Not on file Sexual Orientation Not on file documented as of this encounter Last Filed Vital Signs Vital Sign Reading Time Taken Comments Blood Pressure 153/81 02/25/2023 10:27 AM EDT Pulse 79 02/25/2023 10:27 AM EDT Temperature 36.3 ??C (97.3 ??F) 02/25/2023 10:27 AM E DT Respiratory Rate 18 02/25/2023 10:27 AM EDT Oxygen Saturation 99% 02/25/2023 10:27 AM EDT Inhaled Oxygen Concentration - - Weight 85.4 kg (188 lb 4.8 oz) 02/25/2023 10:27 AM EDT Height 154.9 cm (5' 1) 02/25/2023 10:27 AM EDT Body Mass Index 35.58 02/25/2023 10:27 AM EDT documented in this encounter Progress Notes * Ema Garcia MD - 02/25/2023 10:30 AM EDT Images from the original note were not included. Colorectal Surgery Outpatient Consultation ~ Division of Colon and Rectal Surgery ~ [facility] Care Team: PCP is Shruthi Arrington MD. HPI: Blanca Lujan is a pleasant 67 y.o. female who is referred for consultation by Dr. Johnson regarding recent abnormal CT scan. Patient is a pleasant 67-year-old female seen today in clinic with her daughter. Patient states over the last year she has had 2 colonoscopies and ongoing right lower quadrant pain. She states prior to her colonoscopy she did not have any discomfort. Patient states that discomfort over the summer was difficult. She had difficult time with antibiotic treatment. Most of her pain has settled down and she is actually feeling better. She feels that the prominent swelling that was present over the past year has improved. She is concerned about the abnormal CT scan finding. She denies nausea vomiting fever chills. Review of Systems Constitutional: Positive for malaise/fatigue and sleep disturbance. Respiratory: Negative. Genitourinary: Negative. Gastrointestinal: Positive for abdominal discomfort. HENT: Negative. Psychiatric/Behavioral: Positive for depression. Hematologic/Lymphatic: Negative. Allergic/Immunologic: Negative. Musculoskeletal: Negative. Endocrine: Negative. Cardiovascular: Negative. Neurological: Negative. Skin: Negative. 02/25/2023 10:25 AM COREFO Responses Incontinence Scale [...] represents an increased level of functional disturbance. Problem List:There is no problem list on file for this patient. Past medical history: No past medical history on file. Past surgical history: No past surgical history on file. Allergies: Bactrim [sulfamethoxazole-trimethoprim] and Keflex [cephalexin] Medications: reviewed in the electronic medical record. Current Outpatient Medications on File Prior to Visit Medication Sig Dispense Refill Acetylcysteine (NAC) 600 mg capsule See Instructions, PRN mood, Take 2 capsules by mouth every morning and take 2 capsules daily in the afternoon/early evening cyanocobalamin, vitamin B-12, (Vitamin B-12) 500 mcg tablet Take 500 mcg by mouth. ibuprofen (Advil) 800 mg tablet Take 800 mg by mouth as needed for Pain. [DISCONTINUED] hydroCODone-acetaminophen (VICODIN) 5-500 mg per tablet [DISCONTINUED] epiNEPHrine (EPIPEN) 0.3 mg/0.3 mL injection 0.3 MG/0.3 ML, IM, PRN No current facility-administered medications on file prior to visit. Social history: reports that she has quit smoking. Her smoking use included cigarettes. She does not have any smokeless tobacco history on file. Family medical history: No family history on file. Vital Signs Last value Range last 24hrs Temperature Temp: 36.3 ??C (97.3 ??F) Temp: [36.3 ??C (97.3 ??F)] Heart Rate Heart Rate: 79 Heart Rate: [79] Blood Pressure BP: 153/81 BP: (153)/(81) Respiratory Rate Resp: 18 Resp: [18] SpO2 SpO2: 99 % SpO2: [99 %] Physical Exam: Body mass index is 35.58 kg/m??. General Appearance: well developed and well [...] and not distended, no masses or organomegaly palpable mass in the inguinal region above the anterior iliac spine. Ext: no cyanosis Imaging: Endoscopy: reviewed. Path: reviewed. Path 02/08/2023 Pathology 11/2021 Impression:Blanca Lujan is a pleasant 67 y.o. female who is referred for consultation by Dr. Johnson regarding new diagnosis abnormal CT scan of the appendix region in the setting of a personal history of multiple polyps. Patient had been referred to genetic testing for the adenomatous polyp burden that she had identified on colonoscopy. Due to the abnormal CT scan she canceled the appointment with genetics team. She has never had any genetic testing. There is no family history of colon cancer. She has had 2 colonoscopies over the past 2-1/2 years however prior to this no previous colonoscopies. The most notable finding this year was right lower quadrant swelling of which her previous CT scan in 2021 showed a thickening of the cecal area. The follow- up CT scan after her last colonoscopy performed February 19 2023 shows a significant abnormal multiloculated lesion involving the anterior abdominal wall and the psoas. 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 Due to the history of multiple polyps and the slow progression of this right lower quadrant fullness acute infection is less likely. I recommended laboratory values including CBC, CRP, CEA and presentation at tumor conference. Depending on her lab values if this does appear to be consistent with possible appendiceal malignancy patient may be appropriate for referral to resection/HIPEC depending on evaluation. Patient and family were appreciative of discussion and plans for further evaluation prior to surgical intervention. Plan: 1. CBC, CRP, CMP, CEA 2. List patient for tumor conference 3. Call patient after conference to discuss lab values and plans for next steps in care either surgical intervention versus referral to institution for consideration of dual procedure/colectomy/HIPECdepending on results Ema Garcia MD, MS, FACS, FASCRS Chief, Div. of Colon and Rectal Surgery [facility] Pager [phone] documented in this encounter Plan of Treatment Upcoming Encounters Date Type Department Care Team (Late st Contact Info) Description 01/28/2024 10:30 AM EDT Office Visit Hematology/Oncolog y at [address] [address] Derek Lindquist MD [facility] [place] [address] Ann Tello APRN [address] [place] [address] [place] [address] 03/24/2024 1:00 PM EDT Hospital [place] [phone] Shilo Lopez MD [facility] [place] [address] 03/24/2024 1:00 PM EDT - 03/24/2024 1:45 PM EDT [place] [address] Shilo Lopez MD [facility] [place] [address] COLONOSCOPY, DIAGNOSTIC (WRVU 3.26) Scheduled Procedures Name [...] Associated Diagnosis Comments CRP, ACUTE INFLAMMATION Routine 02/25/2023 11:52 AM EDT Colonic mass HEMOGRAM Routine 02/25/2023 11:52 AM EDT Colonic mass DIFFERENTIAL, AUTOMATED Routine 02/25/2023 11:52 AM EDT Colonic mass CBC (WITH DIFF) Routine 02/25/2023 11:52 AM EDT Colonic mass CEA Routine 02/25/2023 11:52 AM EDT Colonic mass Malignant neoplasm of overlapping sites of colon COMPREHENSIVE METABOLIC PANEL Routine 02/25/2023 11:52 AM EDT Colonic mass documented in this encounter Results * (ABNORMAL) Differential, Automated (02/25/2023 11:52 AM EDT) Neutrophil % 56.6 % [facility] Neutrophil Absolute 4.80 1.70 - 6.10 x10(3)/mc L [facility] Lymph % 27.6 % [facility] Lymphocytes Abs 2.3 0.9 - 3.2 x10(3)/mc L [facility] Monocyte % 8.3 % [facility] Monocyte Abs 0.7 0.3 - 0.9 x10(3)/mc L [facility] Eos % 6.0 % [facility] Eosinophils Abs 0.5(H) 0.0 - 0.4 x10(3)/mc L [facility] Basophil % 0.9 % [facility] Baso Absolute 0.1 0.0 - 0.1 x10(3)/mc L [facility] Immature Gran % 0.60 % [facility] Comment: Immature granulocytes(IG's)percentage and absolute count will include metamyelocytes, myelocytes, and promyelocytes. Blood smears from CBCs yielding IG's will be scanned manually for concordance. If this scan disagrees with the automated IG or if promyelocytes are noted, a manual differential will be performed. Immature Gran Absolute 0.05(H) 0.00 - 0.04 x10(3)/mc L [facility] Blood 02/25/2023 11:5 2 AM EDT 02/25/2023 12:36 PM EDT Narrative Resulting Agency Comment Spec In Lab Ema Garcia MD HEMATOLOGY ORDERABLE S Performing Organization Address City/[facility]/ZIP Co de Phone Number [facility] [place] [address] * Hemogram (02/25/2023 11:52 AM EDT) White Blood Cell 8.5 4.0 - 9.5 x10(3)/[facility] Red Blood Cell 5.13 4.00 - 5.21 x10(6)/[facility] Hemoglobin 14.7 11.7 - 15.5 g/dL [facility] Hematocrit 43.7 35.7 - 45.8 % [facility] Mean Cell Volume 85.2 82.6 - 94.4 fL [facility] Mean Cell Hemoglobin 28.7 27.1 - 32.0 pg [facility] Mean Cell Hemoglobin Concentration 33.6 31.7 - 35.0 g/dL [facility] Platelet 321 145 - 357 x10(3)/[facility] RDW Standard Deviation 39.5 37.0 - 46.0 fL [facility] RDW coefficient of variation 12.8 11.5 - 14.1 % [facility] Mean Platelet Volume 9.4 7.6 - 12.9 fL [facility] NRBC% auto 0.0 % [facility] NRBC Absolute 0.000 0.000 - 0.000 x10(3)/[facility] Blood 02/25/2023 11:5 2 AM EDT 02/25/2023 12:36 PM EDT Narrative Resulting Agency Comment Spec In Lab Ema Garcia MD HEMATOLOGY ORDERABLE S Performing Organization Address City/[facility]/ZIP Co de Phone Number [facility] [place] [address] * (ABNORMAL) CEA (02/25/2023 11:52 AM EDT) Carcinoembryonic Antigen 12.7(H) <=3.8 ng/mL [facility] Comment: Reference range: ??(20-69 years): Non-smoker: ??less than or equal to 3.8 ng/mL Smoker: ??less than 5.5 ng/ml This result was generated using a Steven Grisel immunoassay. ??Results obtained from other methods or manufacturers cannot be used interchangeably with this method. Blood 02/25/2023 11:5 2 AM EDT 02/25/2023 12:36 PM EDT Narrative Resulting Agency Comment Spec In Lab Ema Garcia MD CHEMISTRY ORDERABLES Performing Organization Address City/[facility]/ZIP Co de Phone Number [facility] [place] [address] * (ABNORMAL) CRP, acute inflammation (02/25/2023 11:52 AM EDT) C-Reactive Protein 12.2(H) <=4.9 mg/L [facility] Blood 02/25/2023 11:5 2 AM EDT 02/25/2023 12:36 PM EDT Narrative Resulting Agency Comment Spec In Lab Ema Garcia MD CHEMISTRY ORDERABLES Performing Organization Address City/[facility]/[place] Co de Phone Number [facility] [place] [address] * Comprehensive metabolic panel (non-fasting) (02/25/2023 11:52 AM EDT) Glucose 122 65 - 199 mg/dL [facility] Comment:Diabetes: >=200 mg/d L plus symptoms Blood Urea Nitrogen 16 8 - 18 mg/dL [facility] Creatinine 0.72 0.70 - 1.20 mg/dL [facility] Sodium 141 135 - 145 mmol/L [facility] Potassium 4.3 3.5 - 5.0 mmol/L [facility] Comment: Please note: ??Patients with WBC >100,000 may have falsely elevated Potassium levels. ??For accurate Potassium quantification in these patients send serum separator tube (gold top) for subsequent determinations. ??Contact the Clinical Chemistry Laboratory if there are any questions. Chloride 103 98 - 107 mmol/L [facility] Carbon Dioxide 27 22 - 31 mmol/L [facility] Anion Gap 11 5 - 15 mmol/L [facility] Calcium 9.3 8.5 - 10.5 mg/dL [facility] Protein, Total 7.5 6.1 - 8.0 g/dL [facility] Albumin 4.5 3.2 - 5.2 g/dL [facility] Aspartate Aminotransferase 17 0 - 30 unit/L [facility] Alanine Aminotransferase 25 0 - 30 unit/L [facility] Alkaline Phosphatase 84 35 - 105 unit/L [facility] Bilirubin, Total 0.2 0.2 - 1.3 mg/dL [facility] Est Glomerular Filtration Rate 93 >=60 mL/min/1. 73 m?? [facility] Comment: This patient's estimated GFR was [...] and symptoms in addition to eGFR. Blood 02/25/2023 11:5 2 AM EDT 02/25/2023 12:36 PM EDT Narrative Resulting Agency Comment Spec In Lab Ema Garcia MD CHEMISTRY ORDERABLES [facility] [place] [address] documented in this encounter Visit Diagnoses Diagnosis Colonic mass Other specified disorder of intestines Malignant neoplasm of overlapping sites of colon Malignant neoplasm of other specified sites of large intestine Abnormal CT scan, gastrointestinal tract Nonspecific (abnormal) findings on radiological and other examination of gastrointestinal tract Elevated carcinoembryonic antigen (CEA) Elevated carcinoembryonic antigen [CEA] documented in this encounter Care Teams Lacing Operator Relationship Specialty Start Date End Date Shruthi Arrington MD [address] [place] [address] PCP - General 05/06/10 06/24/23 documented as of this encounter
--- OUTSIDE RECORDS SUMMARY | 2024-01-26 03:10 | XMS_ITS | Encounter Summary ---
Author Organization [facility] [place] [address] Care Team Providers Care Cash Control Specialist Name Role Phone Shruthi Arrington MD Primary Care Provider [phone] Encounter Details Date Type Department Care Team (Late st Contact Info) Description 03/02/2023 Telephone [place] [address] Ema Garcia MD [facility] [place] [address] Social History Tobacco Use Types Packs/Day Years Used Date Smoking Tobacco: Former Cigarettes Sex and Gender Information Value Date Recorded Sex Assigned at Not on file Gender Identity Not on file Sexual Orientation Not on file documented as of this encounter Miscellaneous Notes * Telephone Encounter - Ema Garcia MD - 03/02/2023 12:58 PM EDT Nv team, I presented this patient at GI tumor conference this morning. I have called both the daughter and the patient. I had discussions with them today 03/02/2023. I put in an urgent referral for Dr. Lopez for advanced endoscopic biopsy of appendiceal mass. Please keep me up-to-date on the timing of this. Daughter understands and patient is agreeing to move forward with this procedure. Thanks, Ema Garcia MD, MS, FACS, FASCRS Chief, Division of Colon and Rectal Surgery [facility] Pager [phone] documented in this encounter Plan of Treatment Upcoming Encounters Date Type Department Care Team (Late st Contact Info) Description 01/28/2024 10:30 AM EDT Office Visit Hematology/Oncolog y at [address] [address] Derek Lindquist MD [facility] [place] [address] Ann Tello APRN [address] [place] [address] DR HEMATOLOGY AND ONCOLOGY [place], [place] [id number] 03/24/2024 1:00 PM EDT Hospital En[place] [phone] Shilo Lopez MD [facility] [place] [address] 03/24/2024 1:00 PM EDT - 03/24/2024 1:45 PM EDT [place] [phone] Shilo Lopez MD [facility] [place] [address] COLONOSCOPY, DIAGNOSTIC (WRVU 3.26) Scheduled Procedures Name [...] on filedocumented in this encounter Care Teams Cash Control Specialist Relationship Specialty Start Date End Date Shruthi Arrington MD [address] [place] [address] PCP - General 05/06/10 06/24/23 documented as of this encounter
--- OUTSIDE RECORDS SUMMARY | 2024-01-26 03:10 | XMS_ITS | Encounter Summary ---
Author Organization [facility] [place] [address] Care Team Providers Care Management Supervisor Name Role Phone Shruthi Arrington MD Primary Care Provider [phone] Encounter Details Date Type Department Care Team (Latest Contact Info) Description 04/07/2023 4:10 PM EDT Laboratory Appointment Lab [address] [place] [address] Adenocarcinoma, appendix Social History Tobacco Use Types [...] EDT Office Visit Hematology/Oncolog y at [address] [phone] Derek Lindquist MD [facility] [place] [address] Ann Tello APRN [address] [place] [address] DR HEMATOLOGY AND ONCOLOGY [place], [place] [address] 03/24/2024 1:00 PM EDT Hospital En[place] [address] Shilo Lopez MD [facility] [place] [address] 03/24/2024 1:00 PM EDT - 03/24/2024 1:45 PM EDT Surgery Gastroenterology at [facility] [place], [facility] [place] [address] Shilo Lopez MD [facility] [address] COLONOSCOPY, DIAGNOSTIC (WRVU 3.26) Scheduled Procedures Name [...] Procedure Name Priority Date/Time Associated Diagnosis Comments DPYD PCR Routine 04/07/2023 4:14 PM EDT Adenocarcinoma, appendix HEMOGRAM Routine 04/07/2023 4:14 PM EDT Adenocarcinoma, appendix DIFFERENTIAL, AUTOMATED Routine 04/07/2023 4:14 PM EDT Adenocarcinoma, appendix CBC (WITH DIFF) Routine 04/07/2023 4:14 PM EDT Adenocarcinoma, appendix CEA Routine 04/07/2023 4:14 PM EDT Adenocarcinoma, appendix COMPREHENSIVE METABOLIC PANEL Routine 04/07/2023 4:14 PM EDT Adenocarcinoma, appendix documented in this encounter Results * (ABNORMAL) Differential, Automated (04/07/2023 4:14 PM EDT) Neutrophil % 51.8 % [facility] Neutrophil Absolute 4.61 1.70 - 6.10 x10(3)/mc L [facility] Lymph % 31.1 % [facility] Lymphocytes Abs 2.8 0.9 - 3.2 x10(3)/[facility] Monocyte % 9.5 % [facility] Monocyte Abs 0.8 0.3 - 0.9 x10(3)/[facility] LAB[facility] Eos % 6.1 % [facility] Eosinophils Abs 0.5(H) 0.0 - 0.4 x10(3)/[facility] LAB[facility] Basophil % 1.0 % [facility] Baso Absolute 0.1 0.0 - 0.1 x10(3)/[facility] LABOR[facility] Immature Gran % 0.50 % [facility] Comment: Immature granulocytes(IG's)percentage and absolute count will include metamyelocytes, myelocytes, and promyelocytes. Blood smears from CBCs yielding IG's will be scanned manually for concordance. If this scan disagrees with the automated IG or if promyelocytes are noted, a manual differential will be performed. Immature Gran Absolute 0.04 0.00 - 0.04 x10(3)/[facility] Blood 04/07/2023 4:14 PM EDT 04/07/2023 4:22 PM EDT Narrative Resulting Agency Comment Spec In Lab Derek Lindquist MD HEMATOLOGY ORDERABLE S [facility] [place] [address] * Hemogram (04/07/2023 4:14 PM EDT) White Blood Cell 8.9 4.0 - 9.5 x10(3)/[facility] LAB[facility]AT[facility] Red Blood Cell 5.18 4.00 - 5.21 x10(6)/[facility] Hemoglobin 15.0 11.7 - 15.5 g/dL [facility] Hematocrit 43.3 35.7 - 45.8 % [facility] Mean Cell Volume 83.6 82.6 - 94.4 fL [facility] Mean Cell Hemoglobin 29.0 27.1 - 32.0 pg [facility] Mean Cell Hemoglobin Concentration 34.6 31.7 - 35.0 g/dL [facility] Platelet 274 145 - 357 x10(3)/[facility] LAB[facility]AT[facility] RDW Standard Deviation 38.3 37.0 - 46.0 fL [facility] RDW coefficient of variation 12.5 11.5 - 14.1 % [facility] Mean Platelet Volume 9.2 7.6 - 12.[address] [facility] NRBC% auto 0.0 % [facility] NRBC Absolute 0.000 0.000 - 0.000 x10(3)/[facility] Blood 04/07/2023 4:14 PM EDT 04/07/2023 4:22 PM EDT Narrative Resulting Agency Comment Spec In Lab Derek Lindquist MD HEMATOLOGY ORDERABLE S [facility] [place] [address] * Comprehensive metabolic panel (non-fasting) (04/07/2023 4:14 PM EDT) Glucose 85 65 - 199 mg/dL [facility] Comment:Diabetes: >=200 mg/d L plus symptoms Blood Urea Nitrogen 16 8 - 18 mg/dL [facility] Creatinine 0.75 0.70 - 1.20 mg/dL [facility] Sodium 139 135 - 145 mmol/L [facility] Potassium 4.0 3.5 - 5.0 mmol/L [facility] Comment: Please note: ??Patients with WBC >100,000 may have falsely elevated Potassium levels. ??For accurate Potassium quantification in these patients send serum separator tube (gold top) for subsequent determinations. ??Contact the Clinical Chemistry Laboratory if there are any questions. Chloride 101 98 - 107 mmol/L [facility] Carbon Dioxide 26 22 - 31 mmol/L [facility] Anion Gap 12 5 - 15 mmol/L [facility] Calcium 9.6 8.5 - 10.5 mg/dL [facility] Protein, Total 7.7 6.1 - 8.0 g/dL [facility] Albumin 4.6 3.2 - 5.2 g/dL [facility] Aspartate Aminotransferase 19 0 - 30 unit/L [facility] Alanine Aminotransferase 26 0 - 30 unit/L [facility] Alkaline Phosphatase 82 35 - 105 unit/L [facility] Bilirubin, Total 0.3 0.2 - 1.3 mg/dL [facility] Est Glomerular Filtration Rate 88 >=60 mL/min/1. 73 m?? [facility] Comment: This patient's estimated GFR was [...] Lindquist MD CHEMISTRY ORDERABLES Performing Organization Address [facility] Co de Phone Number [facility] [place] [address] * (ABNORMAL) CEA (04/07/2023 4:14 PM EDT) Pathologist [facility] Carcinoembryonic Antigen 16.3(H) <=3.8 ng/mL [facility] Comment: Reference range: ??(20-69 years): Non-smoker: [...] Lindquist MD CHEMISTRY ORDERABLES Performing Organization Address [facility] Co de Phone Number [facility] [place] [address] * DPYD PCR (04/07/2023 4:14 PM EDT) Pathologist [facility] DPYD PCR Interp INDICATION FOR STUDY: DPYD [...] mutant probes for each variant: DPYD*2A ??(c.1905+1G>A, [id number]), DPYD*13 (c.1679T>G , [id number]), and DPYD c.2846A>T ([id number]). All variant positions are provided on the [...] Genomics and Advanced Technology (CGAT) at the [facility]. It has not been cleared or approved by the U.S. Food and Drug Administration. The laboratory is regulated under CLIA as qualified to perform high-complexity testing. This test is used for clinical purposes. It should not be regarded as investigational or for research. REFERENCES: 1. CPIC?? Guideline for Fluoropyrimidines and DPYD. https://cpicpgx.org/ 2. Izzy simmons al., Clinical Pharmacogenetics Implementation Consortium (CPIC) Guideline for Dihydropyrimidine Dehydrogenase Genotype and Fluoropyrimidine Dosin Update. Clin Pharmacol Ther. 2018 Jul;103(2):210-216. PMID: 39065737 3. Jose Merida, Ralph Overton, Brian See, et al. Fluorouracil Therapy and DPYD Genotype. In: Medical Genetics Summaries [Internet]. Marielle ORTIZ): National Center for Spotlight Innovation Information ([place]); 2011? 2015Apr 16. PMID: [id number] [facility] Blood 04/07/2023 4:14 PM EDT 04/08/2023 8:29 AM EDT Narrative Resulting Agency Comment Spec In Lab Derek Lindquist MD MOLECULAR ORDERABLES Performing Organization Address City/State/[facility] Co de Phone Number [facility] [place] [address] documented in this encounter Visit Diagnoses Diagnosis Adenocarcinoma, appendix Malignant neoplasm of appendix vermiformis documented in this encounter Care Teams Management Supervisor Relationship Specialty Start Date End Date Shruthi Arrington MD [address] [place] [address] PCP - General 05/06/10 06/24/23 documented as of this encounter
--- OUTSIDE RECORDS SUMMARY | 2024-01-26 03:10 | XMS_ITS | Encounter Summary ---
Author Organization [facility] Address [facility] [place] [address] Care Team Providers Care Customer Engineering Specialist Name Role Phone Shruthi Arrington MD Primary Care Provider [phone] Encounter Details Date Type Department Care Team (Late st Contact Info) Description 03/16/2023 2:53 PM EDT Anesthesia Event [place] [address] Joyce Trujillo MD [facility] [place] [address] Rama Schmidt CRNA [facility] [place] [address] Anesthesia Record Procedure Summary Procedure Name Responsible Anesthesiologist Anesthesia Start Time Anesthesia Stop Time LOWER EUS- ENDOSCOPIC ULTRASOUND (WRVU 7.56) (Trunk) Joyce Trujillo MD 03/16/23 1453 03/16/23 1617 Events Date Time Event Comment 03/16/2023 1435 1453 AN Verify 1453 Start 1453 An Start Data 1458 An Induction 1458 Anesthesia Ready 1523 Break/Relief In I assumed ca re for Break Relief before which we: 1. Identified the patient 2. Identified the responsible provider(s) 3. Reviewed the pertinent medical history 4. Discussed the surgical plan and course 5. Reviewed intra-op anesthesia management and issues during anesthesia 6. Set expectations for the relief (and/or post-procedure) period 7. Allowed opportunity for questions and acknowledgement of understanding Angie Saldana CRNA 1541 Break/Relief Out 1617 an stop data 1617 Recovery or ICU Handoff Chantelle ent care was transferred to the destination unit staff after review of the patient's medical history, current anesthetic/surgical status and plan, according to the Provider Handoff Checklist. 1616 Stop Meds Name Total Propofol 70 mg Propofol INF 639.74 mg Dexmedetomidine 20 mcg Ciprofloxacin 400 mg lactated ringers infusion 0 mL * Agents Name O2 Air N2O O2 Auxiliary Flowmeter 1 * Blood No blood administrations on file. Lines, Drains, and Airways Type Details Placement Removal (RETIRED) Peripheral IV Line - Single Lumen 03/16/23; 1452; metacarpal vein (top of hand), right; rpnd-bvh-wzoalo catheter system; 22 gauge; 03/16/23; 1700 03/16/23 1452 by Rama Nicolas RN 03/16/23 1700 by Silvia Haque RN documented in this encounter Social History [...] OR Notes * Anesthesia Postprocedure Evaluation - Joyce Trujillo MD - 03/16/2023 4:18 PM EDT Department of Anesthesiology Post-procedure Note Patient: Blanca Lujan Procedure Summary Date: 03/16/23 Room / Location: [facility] / [facility] Anesthesia Start: 1452 Anesthesia Stop: 1616 Procedures: LOWER EUS- ENDOSCOPIC ULTRASOUND (WRVU 7.56) (Trunk) COLONOSCOPY FLEXIBLE, WITH BX (WRVU 3.56) EGD, W US GUIDED FINE NEEDLE ASPIRATION/BIOPSY (WRVU 4.16) Diagnosis: (Lower Eus with Guzman or me in the next two weeks Colonic mass) Surgeons: Shilo Lopez MD Responsible Provider: Joyce Trujillo MD Anesthesia Type: MAC ASA Status: 3 All Anesthesia Providers: Anesthesiologist: Joyce Trujillo MD; Adelina Jaquez MD CRYPTOGRAPHER: Rama Schmidt CRNA Patient Vitals for the past 24 hrs: Temp Pulse Resp BP SpO2 O2 Device 03/16/23 1435 36.8 ??C (98.3 ??F) 76 18 (!) 139/98 95 % RA Patient Vitals for the past 24 hrs: Temp Heart Rate From SP02 Pulse Resp BP SpO2 O2 Flow Rate (L/min) O2 Device 03/16/23 1435 36.8 ??C (98.3 ??F) -- 76 18 (!) 139/98 95 % -- RA 03/16/23 1620 -- 69 bpm -- 18 99/61 99 % 8 L/min Simple mask 03/16/23 1630 -- 62 bpm -- 18 106/69 98 % -- RA 03/16/23 1645 -- 74 bpm -- 18 109/70 96 % -- RA Patient Location: PACU/[facility] Level of Consciousness: Conscious but Sleepy Pain Management: Satisfactory Analgesia PONV: None Cardiovascular Status: At Baseline Respiratory Status: Supplemental O2 (NC or FM) Postoperative Fluid Status: Intravascular EUvolemia Possible Anesthetic Complications: NONE apparent at time of evaluation Final Primary Anesthesia Type: MAC (The anesthetic type performed was the same as planned.) Comments: * Anesthesia Preprocedure Evaluation - Adelina Jaquez MD - 03/15/2023 8:37 PM EDT Pre-Anesthesia Evaluation for: Blanca Lujan a 67 y.o. female. Procedure(s): LOWER EUS- ENDOSCOPIC ULTRASOUND (VU 7.56) Patient Active Problem List Diagnosis Date Noted ??? Abnormal CT scan, gastrointestinal tract 02/26/2023 ??? Malignant neoplasm of overlapping sites of colon 02/26/2023 ??? Colonic mass 02/26/2023 ??? Elevated carcinoembryonic antigen (CEA) 02/26/2023 ??? Bruxism 02/26/2023 ??? Depressive disorder 02/26/2023 ??? Elevated blood-pressure reading without diagnosis of hypertension 02/26/2023 ??? Lack of energy 02/26/2023 ??? Obstructive sleep apnea syndrome 02/26/2023 ??? Posttraumatic stress disorder 02/26/2023 ??? Snoring 02/26/2023 ??? Vitamin D deficiency 02/26/2023 No past medical history on file. No past surgical history on file. Social History Tobacco Use ??? Smoking status: Former Types: Cigarettes ??? Smokeless tobacco: Not on file Substance Use Topics ??? Alcohol use: Not on file Social History Substance and Sexual Activity Drug Use Yes ??? Types: Marijuana Allergies Allergen Reactions ??? Bactrim [Sulfamethoxazole-Trimethoprim] Hives ??? Keflex [Cephalexin] Hives Medications: MAR and/or home medications have been reviewed. Physical Exam: Preprocedure Vitals Current as of 03/15/232036 No BP, pulse, respiration, SpO2, or temperature recorded. Height: Weight: BMI: IBW: Airway Assessment: Mallampati: II TM distance: >3 FB Neck ROM: limited Cardiovascular Assessment: Rhythm: regular Rate: normal Pulmonary Assessment: (-) wheezes Dental Assessment: Misc Assessment: IV access: Peripheral line Last Filed Perioperative Cognitive Screening None Anesthesia Plan: ASA 3 MAC, with a(n) intravenous induction Blanca Lujan is a 67 y.o. patient presenting for lower endoscopy ultrasound for colonic mass. PMHx: ZARA on CPAP, shortness of breath when lying flat, HTN, PTSD, daily marijuana smoker No anesthesia history available for review. Denies previous complications. Did get very dehydrated after last bowel prep and required additional IV fluids prior to discharge. Adequate functional status, no active GERD, NPO status confirmed. Plan: MAC with backup GA. The patient was informed of the risks, benefits and alternatives of anesthesia. These risks included, but were not limited to, major aspiration event, post- operative nausea and/or vomiting, pain, sore throat, dental/lip injury, and other rare but serious complications such as cardiac instability/arrest, neurologic event, awareness, severe allergic reactions, position-related nerve injuries, and need blood transfusions. All questions sought and answered. Region - Other Informed Consent: Anesthetic plan and risks discussed with patient. Use of blood products discussed with patient who consented to blood products. Plan discussed with attending. Anesthesia Screening documented in this encounter Plan of Treatment Upcoming Encounters Date Type Department Care Team (Late st Contact Info) Description 01/28/2024 10:30 AM EDT Office Visit Hematology/Oncolog y at [address] [phone] Derek Lindquist MD [facility] [place] [address] Ann Tello APRN [address] [place] [address] [place] [address] 03/24/2024 1:00 PM EDT Hospital Encounter [place] [phone] hSilo Lopez MD [facility] [place] [address] 03/24/2024 1:00 PM EDT - 03/24/2024 1:45 PM EDT Surgery [place] [phone] Shilo Lopez MD [facility] [place] [address] COLONOSCOPY, DIAGNOSTIC (WRVU 3.26) Scheduled Procedures Name Priority Associated Diagnoses Date/Ti de COLONOSCOPY, DIAGNOSTIC (WRVU 3.26) Procedure: Colonoscopy Indication: [...] MAR Action Action Date Dose Rate Site ciprofloxacin (Cipro) 400 mg in dextrose 5% 200 mL infusion Intravenous, PRN, Starting on 03/16/23 at 1614, Until Tu03/16/23 at 1617, Administer over 60 Minutes, Anesthesia Intra-op Given 03/16/2023 4:14 PM EDT 400 mg dexmedeTOMIDine (Precedex) (4 mcg/mL) bolus injection (Anesthsia) Intravenous, PRN, Starting on 03/16/23 at 1518, Until 03/16/23 at 1617, Anesthesia Intra-op, Routine Given 03/16/2023 4:00 PM EDT 8 mcg Given 03/16/2023 3:37 PM EDT 4 mcg Given 03/16/2023 3:18 PM EDT 8 mcg lactated ringers infusion 100 mL/hr, Intravenous, CONTINUOUS, Starting on 03/16/23 at 1445, Until 03/16/23 at 1701, Endoscopy (Day of Procedure) Restarted 03/16/2023 2:53 PM EDT New Bag 03/16/2023 2:52 PM EDT 100 mL/hr 100 mL/hr propofoL (Diprivan) (10 mg/mL) infusion Intravenous, CONTINUOUS PRN, Starting on 03/16/23 at 1458, Until 03/16/23 at 1617, Anesthesia Intra-op, Routine Rate/Dose Change 03/16/2023 3:03 PM EDT 100 mcg/kg/min 50.34 mL/hr Rate/Dose Change 03/16/2023 3:02 PM EDT 125 mcg/kg/min 62. 925 mL/hr New Bag 03/16/2023 2:58 PM EDT 150 mcg/kg/min 75.51 mL/ hr propofoL (Diprivan) 10 mg/mL bolus injection (Anesthesia) Intravenous, PRN, Starting on 03/16/23 at 1458, Until 03/16/23 at 1617, Anesthesia Intra-op Given 03/16/2023 3:01 PM EDT 20 mg Given 03/16/2023 2:58 PM EDT 50 mg documented in this encounter Care Teams Customer Engineering Specialist Relationship Specialty Start Date End Date Shruthi Arrington MD [address] [place] [address] PCP - General 05/06/10 06/24/23 documented as of this encounter
--- OUTSIDE RECORDS SUMMARY | 2024-01-26 03:10 | XMS_ITS | Encounter Summary ---
Author Organization [facility] [place] [address] Care Team Providers Care Brick Setter Name Role Phone Shruthi Arrington MD Primary Care Provider [phone] Encounter Details Date Type Department Care Team (Late st Contact Info) Description 03/03/2023 Telephone [place] [address] Maria Victoria Landaverde Social History Tobacco Use Types Packs/Day Years Used Date Smoking Tobacco: Former Cigarettes Sex and Gender Information Value Date Recorded Sex Assigned at Not on file Gender Identity Not on file Sexual Orientation Not on file documented as of this encounter Miscellaneous Notes * Telephone Encounter - Maria Victoria Landaverde - 03/03/2023 12:43 PM EDT Blanca Lujan [id number] Diagnosis/Indication: Lower Eus with Guzman or me in the next two weeks Colonic mass Please review patient chart to confirm if [...] these questions) Have you ever had a/an Lower EUS before? No If yes, did you have any problems with the procedure (such as waking up during the procedure, pain or difficulties afterwards, etc.)? No What type of sedation was used: None Do you take any blood thinners or have you been diagnosed with a bleeding disorder that increases your risk of bleeding with procedures? No Do you have a Pacemaker or Defibrillator device? If yes, send pool message to Cardiology with patient information and date or procedure. No Are you a diabetic? If yes, call PCP/managing provider to discuss use of prep and any questions or concerns related to. No Do you take any iron supplements or [...] a period of time? Yes Do you take prescription narcotic pain medications, including suboxone or methodone? No SCHEDULING CONFIRMATIONS: Please note any and all [...] relation to your upcoming scheduled procedure? Yes: she wants to make sure that you look at her polyps too You must have a responsible constitution party who will drive you to your procedure, stay on campus for the entire duration of your procedure, and drive you home from your procedure. Who will likely be your contract driver for the procedure? *Please Verify the height and weight, and adjust if height and/or weight have changed* Estimated body mass index is 35.58 kg/m?? as calculated from the following: Height as of 02/25/23: 154.9 cm (5' 1). Weight as of 02/25/23: 85.4 kg (188 lb 4.8 oz). *Patient must be scheduled for Anesthesia support if BMI is 40 or above* Age:67 y.o. documented in this encounter Plan of Treatment Upcoming Encounters Date Type Department Care Team (Late st Contact Info) Description 01/28/2024 10:30 AM EDT Office Visit Hematology/Oncolog y at [address] [phone] Derke Lindquist MD [facility] [place] [address] Ann Tello APRN [address] [place] [address] [place] [address] 03/24/2024 1:00 PM EDT Hospital Encounter [place] [address] Shilo Lopez MD [facility] [place] [address] 03/24/2024 1:00 PM EDT - 03/24/2024 1:45 PM EDT Surgery [place] [address] Shilo Lopez MD [facility] [place] [address] COLONOSCOPY, DIAGNOSTIC (WRVU 3.26) Scheduled Procedures Name [...] filedocumented in this encounter Care Teams Brick Setter Relationship Specialty Start Date End Date Shruthi Arrington MD [address] [place] [address] PCP - General 05/06/10 06/24/23 documented as of this encounter
--- OUTSIDE RECORDS SUMMARY | 2024-01-26 03:10 | XMS_ITS | Encounter Summary ---
Author Organization [facility] Address [address] [place] [address] Care Team Providers Care Outside Salesperson Name Role Phone Shruthi Arrington MD Primary Care Provider [phone] Encounter Details Date Type Department Care Team (Late st Contact Info) Description 05/13/2023 Lab Requisition [facility] Pathology & Laboratory Medicine - [address] [address] Outr Resulting Lab, Provider Social History Tobacco [...] Priority Date/Time Associated Diagnosis Comments CEA Routine 05/13/2023 13:05 EST documented in this encounter Results * CEA (05/13/2023 13:05 EST) CEA 6.2 See Note ng/mL 05/13/2023 23:09 EST [facility] Comment: % Distribution of CEA (ng/mL): ??0.0 - 2.5 in 98.2% of Nonsmokers and 87.3% of Smokers ??2.6 - 5 in 1.8% of Nonsmokers and 8% of Smokers ??5.1 - 10.1 in 4.7% of Smokers NOTE: Serum CEA concentration should not be interpeted as absolute evidence for the presence or absence of malignant disease. ?? Assayed on Siem[employer] XPT using chemiluminescent technology. ??Values obtained by different assay methods cannot be used interchangeably. Blood VENOUS BLOOD / Unknown 05/13/2023 13:05 EST 05/13/2023 22:00 EST Provider Outr Resulting Lab CHEMISTRY & BLOOD GAS ORDERABLES [facility] [address] [place] [address] documented in this encounter Visit Diagnoses Not on filedocumented in this encounter Care Teams Outside Salesperson Relationship Specialty Start Date End Date Shruthi Arrington MD [address] [place] [address] PCP - General 09/16/15 documented as of this encounter
--- OUTSIDE RECORDS SUMMARY | 2024-01-26 03:10 | XMS_ITS | Encounter Summary ---
[place] [address] Care Team Providers Care High Wire Artist Name Role Phone Shruthi Arrington MD Primary Care Provider [phone] Reason for Referral * Consultation (Urgent) - Closed Specialty Diagnoses / Procedures Referred By Contsarbjit t Referred To Contact General Surgery Diagnoses Cecal lesion Hina Johnson [address] [place] [address] [facility] Gen Surgery [address] [place] [phone] Referral ID Status Reason Start Date Expiration Date V isits Requested Visits Authorized [id number] Closed Consult, Test & Treat PCP Updated and/or Approved 02/19/2023 02/19/2024 12 12 Encounter Details Date Type Department Care Team (Late st Contact Info) Description 02/19/2023 Transcribe Orders eDH Incoming Referrals [phone] Hina Johnson [address] [place], [place] [address] Cecal lesion Social History Tobacco Use Types Packs/Day Years [...] AM EDT Office Visit Hematology/Oncolog y at [address] [address] Derek Lindquist MD [facility] [place] [address] Ann Tello APRN [address] [place] [address] DR HEMATOLOGY AND ONCOLOGY [place], [place] [address] 03/24/2024 1:00 PM EDT Hospital En[place] [address] Shilo Lopez MD [facility] [place] [place] [address] 03/24/2024 1:00 PM EDT - 03/24/2024 1:45 PM EDT [place] [address] Shilo Lopez MD [facility] [place] [place] [address] COLONOSCOPY, DIAGNOSTIC (WRVU 3.26) Scheduled Procedures Name [...] Associated Diagnoses Orde r Schedule Referral to General Surgery Outpatient Referral Urgent Cecal Lesion Ordered: 02/19/2023 documented as of this encounter Visit Diagnoses Diagnosis Cecal lesion Other specified disorder of intestines documented in this encounter Care Teams High Wire Artist Relationship Specialty Start Date End Date Shruthi Arrington MD [address] [place] [address] PCP - General 05/06/10 06/24/23 documented as of this encounter
--- OUTSIDE RECORDS SUMMARY | 2024-01-26 03:10 | XMS_ITS | Encounter Summary ---
Author Organization [facility] Address [address] [place] [address] Care Team Providers Care Dairy Farm Worker Name Role Phone Shruthi Arrington MD Primary Care Provider [phone] Encounter Details Date Type Department Care Team (Late st Contact Info) Description 10/28/2023 Lab Requisition [facility] Pathology & Laboratory Medicine - [address] [id number] Outr Resulting Lab, Provider Social History Tobacco [...] Diagnosis Comments CEA Routine 10/28/2023 10:25 EDT documented in this encounter Results * CEA (10/28/2023 10:25 EDT) CEA 1.1 See Note ng/mL 10/28/2023 21:01 EDT [facility] Comment: % Distribution of CEA (ng/mL): ??0.0 - 2.5 in 98.2% of Nonsmokers and 87.3% of Smokers ??2.6 - 5 in 1.8% of Nonsmokers and 8% of Smokers ??5.1 - 10.1 in 4.7% of Smokers NOTE: Serum CEA concentration should not be interpeted as absolute evidence for the presence or absence of malignant disease. ?? Assayed on Siemens ADVIA Chuteaur XPT using chemiluminescent technology. ??Values obtained by different assay methods cannot be used interchangeably. Blood VENOUS BLOOD / Unknown 10/28/2023 10:25 EDT 10/28/2023 19:42 EDT Provider Outr Resulting Lab CHEMISTRY & BLOOD GAS ORDERABLES [facility] [address] [place], [place] [id number] documented in this encounter Visit Diagnoses Not on filedocumented in this encounter Care Teams Dairy Farm Worker Relationship Specialty Start Date End Date Shruthi Arrington MD [address] [place] [address] PCP - General 09/16/15 documented as of this encounter
--- OUTSIDE RECORDS SUMMARY | 2024-01-26 03:10 | XMS_ITS | Encounter Summary ---
Author Organization [facility] [place] [address] Care Team Providers Care Senior Controls Engineer Name Role Phone Shruthi Arrington MD Primary Care Provider [phone] Reason for Referral * Diagnostic Test (Routine) - Closed Specialty Diagnoses / Procedures Referred By Contac t Referred To Contact Radiology Diagnoses Adenocarcinoma, appendix Procedures IR Mediport Placement Derek Lindquist MD [facility] [address] [facility] [place] [address] Referral ID Status Reason Start Date Expiration Date V isits Requested Visits Authorized [id number] Closed Specialty Service Requested 04/07/2023 10/06/2024 1 1 Reason for Visit * Diagnostic Test (Routine) - Closed Specialty Diagnoses / Procedures Referred By Contac t Referred To Contact Radiology Diagnoses Adenocarcinoma, appendix Procedures IR Mediport Placement Derek Lindquist MD [facility] [place] [address] [facility] [place] [address] Referral ID Status Reason Start Date Expiration Date V isits Requested Visits Authorized [id number] Closed Specialty Service Requested 04/07/2023 10/06/2024 1 1 Encounter Details Date Type Department Care Team (Latest Contact Info) Description 04/14/2023 9:57 AM EDT - 04/14/2023 12:23 PM EDT Hospital Encounter Radiology at [facility] [place] [address] Derek Lindquist MD [facility] [place] [address] Adenocarcinoma, 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 Social History [...] Sign Reading Time Taken Comments Blood Pressure 156/93 04/14/2023 12:00 PM EDT Pulse 81 04/14/2023 11:18 AM EDT Temperature 36.3 ??C (97.3 ??F) 04/14/2023 11:27 AM E DT Respiratory Rate 16 04/14/2023 12:00 PM EDT Oxygen Saturation 96% 04/14/2023 12:00 PM EDT Inhaled Oxygen Concentration - - Weight - - Height - - Body Mass Index - - documented in this encounter Discharge Instructions * Discharge Instructions* Liv Rubi RN - 04/14/2023 11:14 AM EDT Department of Vascular and Interventional Radiology Discharge Instructions for your Chest Port You have received a ???Power Port?? , which provides access for infusions and blood draws. What makes this a ???Power Port?? is the unique ability to ???power inject?? contrast (intravenous dye) through the port when getting a CT scan, which produces superior images (pictures). Patients who don???t have these special ports need to have an IV started if they need dye injected for their CT scan. Your port is printed with the letters ???CT?? which can be detected by x- ray to identify it as a ???Power Port?? . You will be provided with an ID card stating the printing estimator and type of port you have. Please carry this with you in a safe place. Bandage: There is a sterile dressing over the port site consisting of small gauze with a clear dressing (Tegaderm or [id number] ). This dressing should be left in place for 48 hours. If the clear dressing becomes loose you should place tape over the edges to secure it in place. Note: If you have steri-strips beneath your dressing, simply allow them to fall off. Do not peel them off. There may be Myton-childress (skin glue) also, allow this to flake off. Pain: Apply ice bag to site (s) at 30 minute intervals (30 minutes on and 30 minutes off) for 24 hours?? . May use as needed for pain and/or bruising after 24 hours. Bathing: Do not take a shower until 48 hours after your port is placed; after this time you may shower with the dressing in place, then remove it and pat your skin dry. After 48 hours, we recommend that you cover the area with THE AQUA GUARD PROVIDED for 1 week while showering, facing away from theshower stream. You may use a bandaid to cover the site after the 48 hours are up if there is any drainage. No tub baths, whirlpools or swimming for one week following port placement. Flushing the mediport: If your port has not been used, it must be flushed every 30 days. What to expect when your port is accessed: 1. You may feel tenderness the first few times it is accessed but generally this subsides over time. Ask your healthcare provider to use a local anesthetic on the site if discomfort is a problem for you. You may ask for a prescription for a topical cream (EMLA) from your clinician; you may apply athome prior to your appointments, to help numb the skin over your port. 2. The clinician should be wearing sterile gloves and a mask during the access procedure. Anyone inthe room with you should also have a mask on. 3. The skin over and 2 inches around the port should be cleaned with a disinfectant 4. Tell the clinician if you would like the skin numbed (lidocaine) before the access needle is placed. 5. Unless you are unable to take heparin (blood thinner), the port should be injected with a heparin solution before deaccess (at end of each treatment or blood draw). When to call your healthcare provider: If you notice bleeding from the puncture site in your neck, or from the port incision on your chest, you should apply firm pressure over the site for 10-15 minutes, keeping the site covered. Call if you are still bleeding after 10-15 minutes. If you develop pain, redness, drainage or swelling at or around the port site, or the puncture sitein the neck If you develop fever (elevation of more than 2 degrees or greater than 101F) and/or shaking chills When to call the Interventional Radiology Department: Please call with any questions or concerns. If it is during regular office hours, please call [phone]. If it is after regular office hours, or on weekends or holidays, please call [phone] and ask to speak to the Live In Housekeeper stoneworking belt sander for Interventional Radiology. XXX You have received medication during your procedure to help lessen anxiety and keep you comfortable. These medications affect judgement and reaction time. We [...] as of this encounter Progress Notes * Ellen Irene RN - 04/14/2023 12:23 PM EDT Follow up call completed for Blanca Lujan on 04/15/2023. Patient states that they have no concernsor questions at this time and was encouraged to call IR Department should any question or concerns arise. * Liv Rubi RN - 04/14/2023 10:54 AM EDT ANGIO NURSING DATABASE Name: Blanca Lujan Date of : 1955 AGE: 67 y.o. Address: [address] [address] Phone: [phone] (home) Mobile: Telephone Information: Referring Provider: Derek Lindquist REASON FOR VISIT: Order Questions Answers Where will study be performed? [facility] Radiology [120] Prefered insertion location: No Preference Is the patient on anticoagulant / antiplatelet therapy ? 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 Needs mediport for chemotherapy Exam/Procedure requested: Single lumen mediport What labs need to be collected during imaging study? 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 Onto table supine. All monitors, O2, safety strap in place.Meds per protocol. Laboratory Results: Lab Results Component Value Date CREATININE 0.75 04/07/2023 Lab Results Component Value Date K 4.0 04/07/2023 Lab Results Component Value Date PLATELET 274 04/07/2023 documented in this encounter H&P Notes * Lina Reyes PA - 04/14/2023 10:21 AM EDT INTERVENTIONAL RADIOLOGY FOCUSED H&P: Procedure: Mediport implant Update to H&P: The patient's history and physical exam have been reviewed and completed. There has been NO interval change from that of the pre-procedural note done within the last 30 days. There is NO change in the procedural plan. Physical Exam: Cardiovascular: Regular, Normal Pulmonary: Breath sounds clear to auscultation Meds: Current medications reviewed. No medications held. Labs: No new relevant labs. The planned procedure (and sedation plan if appropriate) , its benefits and risks, and alternativeswere discussed with the patient. The patient consented to the procedure. PRE-SEDATION ASSESSMENT: Sedation Plan: moderate (conscious sedation) ASA: 2: Patient with mild systemic disease Mallampati: III: only the base of the uvula can be seen Confirm NPO status: Yes History of anesthetic complications: No Current medications reviewed: Yes Allergies reviewed: Yes Source Note - Ham Love PA - 04/08/2023 10:12 AM EDT Interventional Radiology Focused Pre-procedure H&P: PCP: Shruthi Arrington MD Planned procedure: Chest port placement Procedure indication: Cecal/appendiceal adenocarcinoma, halfway durable venous access for chemotherapy IR workflow: [...] 3.56) performed by Shilo Lopez MD at [facility] ENDOSCOPY PRO UNLISTED PX RECTUM N/A 03/16/2023 LOWER EUS- ENDOSCOPIC ULTRASOUND (WRVU 7.56) performed by Shilo Lopez MD at [facility] ENDOSCOPY PRO UPGI ENDOSCOPY W/US FN BX 03/16/2023 EGD, W US GUIDED FINE NEEDLE ASPIRATION/BIOPSY (WRVU 4.16) performed by Shilo Lopez MD at [facility] ENDOSCOPY Social history and habits: Social History [...] EDT Office Visit Hematology/Oncolog y at [address] [address] Derek Lindquist MD [facility] [place] [address] Ann Tello APRN [address] [place] [address] DR HEMATOLOGY AND ONCOLOGY [place], [place] [address] 03/24/2024 1:00 PM EDT Hospital Encounter [place] [address] Shilo Lopez MD [facility] [place] [address] 03/24/2024 1:00 PM EDT - 03/24/2024 1:45 PM EDT Surgery [place] [address] Shilo Lopez MD [facility] [place] [address] COLONOSCOPY, DIAGNOSTIC (WRVU 3.26) Scheduled Procedures Name [...] Priority Date/Time Associated Diagnosis Comments IR MEDIPORT PLACEMENT Routine 04/14/2023 11:25 AM EDT Adenocarcinoma, appendix documented in this encounter Results * IR Mediport Placement (04/14/2023 11:25 AM EDT) Anatomical Region Laterality Modality X-Ray Angiograph y Narrative 04/14/2023 11:57 AM EDT Interventional Radiology Procedure Note Procedure: Chest Port Placement Indication: Cecal/appendiceal adenocarcinoma, halfway durable venous access for chemotherapy Informed Consent: [...] the IR Nurse. ?? Derek Lindquist MD IMG IR ORDERABLES documented in this encounter Visit Diagnoses Diagnosis Adenocarcinoma, appendix Malignant neoplasm of appendix vermiformis documented in this encounter Administered Medications Inactive Administered Medications - up to 3 most recent administrations Medication Order MAR Action Action Date Dose Rate Site fentaNYL (pf) (50 mcg/mL) multi-dose injection 25-50 mcg 25-50 mcg, Intravenous, EVERY 3 MIN PRN, Starting on Wed04/14/23 at 1026, Until Wed04/14/23 at 1207, Pain, per unit protocol, For use in Interventional Radiology (IR) only for procedural sedation with direct provider supervision and verbal order. - Start dose: 50 mcg (reduce dose to 25 mcg if history of sedation sensitivity). - Titration dose: 25-50 mcg IV, (based on patient response) every 3 minutes PRN to maintain procedural pain less than 2 per Pain Scale. Maximum dose: 50 mcg/dose, 250 mcg/hour, Angio/IR (Day of Procedure), Routine Given 04/14/2023 11:04 AM EDT 25 mcg Given 04/14/2023 10:59 AM EDT 25 mcg Given 04/14/2023 10:48 AM EDT 25 mcg lidocaine (Xylocaine) 1% (10 mg/mL) injection 10 mg 10 mg, Subcutaneous, ONCE, 1 dose, On Wed04/14/23 at 1045, For use in Interventional Radiology (IR) only for procedure with direct provider supervision and verbal order., Angio/IR (Day of Procedure), Routine Given 04/14/2023 11:0 1 AM EDT 10 mg lidocaine-EPINEPHrine (2% - 1:100,000) injection vial 20 mL 20 mL, Intradermal, ONCE, 1 dose, On Wed04/14/23 at 1045, Warning Vesicant/Irritant Medication , Angio/IR (Day of Procedure), Routine Given 04/14/2023 11:06 AM EDT 20 mLs midazolam (pf) (Versed) (1 mg/mL) multi-dose injection 0.5-1 mg 0.5-1 mg, Intravenous, EVERY 3 MIN PRN, Starting on Wed04/14/23 at 1026, Until Wed04/14/23 at 1207, Sedation, For use in Interventional Radiology (IR) only for procedural sedation with direct provider supervision and verbal order. - Start dose: 1 mg (Reduce dose to 0.5 mg if history of sedation sensitivity). - Titration dose: 0.5 mg - 1 mg (based on patient response) every 3 minutes PRN to obtain RASS score of -3. Maximum dose: 1 mg/dose, 5 mg/hour., Angio/IR (Day of Procedure), Routine Given 04/14/2023 11:05 AM EDT 0.5 mg Given 04/14/2023 10:59 AM EDT 0.5 mg Given 04/14/2023 10:48 AM EDT 0.5 mg sodium chloride 0.9 % (flush) (BD PosiFlush Normal Saline 0.9) flush 5 mL 5 mL, Intravenous, 2 TIMES DAILY, First dose on Wed04/14/23 at 1045, Until Discontinued, Angio/IR (Day of Procedure), Routine Given 04/14/2023 11:08 AM EDT 5 mLs documented in this encounter Care Teams Senior Controls Engineer Relationship Specialty Start Date End Date Shruthi Arrington MD [address] [place] [address] PCP - General 05/06/10 06/24/23 documented as of this encounter
--- OUTSIDE RECORDS SUMMARY | 2024-01-26 03:10 | XMS_ITS | Encounter Summary ---
Author Organization [facility] [place] [address] Care Team Providers Care Co Director Name Role Phone Shruthi Arrington MD Primary Care Provider [phone] Encounter Details Date Type Department Care Team (Late st Contact Info) Description 03/21/2023 Telephone General Surgery at [facility] [place] [address] Ema Garcia MD [facility] DR [place] [address] Social History Tobacco Use Types Packs/Day Years [...] Telephone Encounter - Ema Garcia MD - 03/21/2023 7:12 PM EDT Phone call: 20-minute phone call to daughter, 15-minute phone call to patient Patient has abnormal CT scan with evidence of mucinous process outside of the appendix. Patient underwent colonoscopy with biopsy of ileocecal valve 03/17/[address] Lopez. Biopsy showed invasiveadenocarcinoma. Discussed with family and with patient confirmed diagnosis of cancer. CEA of 12. This likely represents either advanced ileocecal valve versus appendiceal primary tumor. Next step. 1. Refer to oncology team at [facility] for discussion regarding systemic free treatment 2. Referred to Dr. Juarez at [facility] to discussHIPEC 3. At this time patient is not obstructed and is not having significant obstructive symptoms plan for pretreatment prior to surgical intervention. Referral placed to oncology Patient and daughter appreciative of phone call Ema Garcia MD, MS, FACS, FASCRS Chief, Division of Colon and Rectal Surgery [facility] Pager [phone] 7:15 PM 03/21/23 documented in this encounter Plan of Treatment Upcoming Encounters Date Type Department Care Team (Late st Contact Info) Description 01/28/2024 10:30 AM EDT Office Visit Hematology/Oncolog y at [address] [address] Derek Lindquist MD [facility] [place] [address] Ann Tello APRN [address] [place] [address] [place] [address] 03/24/2024 1:00 PM EDT Hospital Encounter [place] [phone] Shilo Lopez MD [facility] DR [place] [address] 03/24/2024 1:00 PM EDT - 03/24/2024 1:45 PM EDT Surgery [place] [address] Shilo Lopez MD [facility] DR [place] [address] COLONOSCOPY, DIAGNOSTIC (WRVU 3.26) Scheduled Procedures Name [...] on filedocumented in this encounter Care Teams Co Director Relationship Specialty Start Date End Date Shruthi Arrington MD [address] [place] [address] PCP - General 05/06/10 06/24/23 documented as of this encounter
--- OUTSIDE RECORDS SUMMARY | 2024-01-26 03:10 | XMS_ITS | Encounter Summary ---
Author Organization [facility] Address [address] [place] [address] Care Team Providers Care Mulcher Operator Name Role Phone Shruthi Arrington MD Primary Care Provider [phone] Encounter Details Date Type Department Care Team (Late st Contact Info) Description 12/08/2022 Lab Requisition [facility] Pathology & Laboratory Medicine - [address] [address] Monique Rock, DO [address] [place], [place] [id number] Encounter for other general examination Social History Tobacco Use Types Packs/Day Years Used Date Smoking Tobacco: Never Assessed Sex and Gender Information Value Date Recorded Sex Assigned at Not on file Gender Identity Not on file Sexual Orientation Not on file documented as of this encounter Plan of Treatment Not on file documented as of this encounter Procedures Procedure Name Priority Date/Time Associated Diagnosis Comments SURGICAL PATHOLOGY Today 12/08/2022 11 :35 EDT Encounter for other general examination documented in this encounter Results * SURGICAL PATHOLOGY (12/08/2022 11:35 EDT) Note to Patient The following pathology results have been interpreted by your pathologist and may be available to you before your health provider has had the opportunity to review them. Please allow time for your provider to receive these results and explore management options, if applicable. 12/09/2022 11:49 EDT [facility] Final Diagnosis A. COLON, POLYP, 50 CM, BIOPSY: - [...] BIOPSY: - Tubular adenoma. - Hyperplastic polyp. 12/09/2022 11:49 [facility] Attestation By the signature below, the attending physician certifies that they have 1) personally conducted a gross and/or microscopic examination of the described specimen(s), and/or personally interpreted the results of laboratory testing of the described specimen(s), and 2) personally rendered or confirmed the above diagnosis. 12/09/2022 11:49 [facility] at 1149 Clinical History History of tubulovillous adenoma; colon polyp, large external hemorrhoid, diverticulosis 12/09/2022 11:49 [facility] Gross Description A. Received in formalin labelled with proper patient identification (initials B, H) and polyp at 50 cm are 7 lópez-pink tissues ranging in size from 0.3 x 0.2 x 0.1 cm up to 0.5 x 0.4 x 0.1 cm. Submitted intact in A1. B. Received in formalin labelled with proper patient identification (initials B, H) and cecal polyp times lópez are 10 lópez-pink tissues ranging in size from 0.2 x 0.1 x 0.1 cm up to 0.9 x 0.4 x 0.3 cm. Submitted intact in B1-B2. C. Received in formalin labelled with proper patient identification (initials B, H) and polyp at 80 cm x 3 are 3 light lópez tissues ranging in size from 0.3 x 0.3 x 0.1 cm up to 0.5 x 0.3 x 0.2 cm. Submitted intact in C1. D. Received in formalin labelled with proper patient identification (initials B, H) and polyp at 70 cm x 6 are 7 lópez-pink tissues ranging in size from 0.3 x 0.1 x 0.1 cm up to 0.4 x 0.2 x 0.2 cm. Submitted intact in D1-D2. E. Received in formalin labelled with proper patient identification (initials B, H) and polyp at 60 cm x 5 are 5 lópez-pink tissues ranging in size from 0.3 x 0.2 x 0.1 cm up to 0.4 x 0.3 x 0.1 cm. Submitted intact in E1. F. Received in formalin labelled with proper patient identification (initials B, H) and polyp at 40 cm x 3 are 3 lópez-pink tissues ranging in size from 0.2 x 0.1 x 0.1 cm up to 0.6 x 0.5 x 0.3 cm. Submitted intact in F1. G. Received in formalin labelled with proper patient identification (initials B, H) and polyp at 35 cm x 3 are 3 lópez-pink tissues ranging in size from 0.3 x 0.1 x 0.1 cm up to 0.4 x 0.2 x 0.2 cm. Submitted intact in G1. H. Received in formalin labelled with proper patient identification (initials B, H) and polyp at 25 cm x 2 are 3 lópez-pink tissues ranging in size from 0.4 x 0.1 x 0.1 cm up to 0.5 x 0.2 x 0.1 cm. Submitted intact in H1. JANELLE CHRISTY(ASCP) 12/08/2022 19:33 12/09/2022 11:49 EDT [facility] Performing Lab [facility] 12/09/2022 11:49 EDT [facility] Scanned Images 12/09/2022 11:49 EDT [facility] Tissue ENTIRE COLON / Unknown 12/08/2022 11:35 EDT 12/08/2022 16:50 EDT Tissue specimen (specimen) CECUM STRUCTURE / Unknown 12/08/2022 11:35 EDT 12/08/2022 16:50 EDT Tissue specimen (specimen) COLON STRUCTURE / Unknown 12/08/2022 11:35 EDT 12/08/2022 16:50 EDT Tissue specimen (specimen) COLON STRUCTURE / Unknown 12/08/2022 11:35 EDT 12/08/2022 16:50 EDT Tissue specimen (specimen) COLON STRUCTURE / Unknown 12/08/2022 11:35 EDT 12/08/2022 16:50 EDT Tissue specimen (specimen) COLON STRUCTURE / Unknown 12/08/2022 11:35 EDT 12/08/2022 16:50 EDT Tissue specimen (specimen) COLON STRUCTURE / Unknown 12/08/2022 11:35 EDT 12/08/2022 16:50 EDT Tissue specimen (specimen) COLON STRUCTURE / Unknown 12/08/2022 11:35 EDT 12/08/2022 16:50 EDT Monique Rock DO PATHOLOGY ORDERABLES [facility] [address] [place] [address] documented in this encounter Visit Diagnoses Diagnosis Encounter for other general examination documented in this encounter Care Teams Mulcher Operator Relationship Specialty Start Date End Date Shruthi Arrington MD [address] [place] [address] PCP - General 09/16/15 documented as of this encounter
--- OUTSIDE RECORDS SUMMARY | 2024-01-26 03:10 | XMS_ITS | Encounter Summary ---
Author Organization [facility] [place] [address] Care Team Providers Care Milk Tanker Driver Name Role Phone Shruthi Arrington MD Primary Care Provider [phone] Encounter Details Date Type Department Care Team (Late Contact Info) Description 03/16/2023 Orders [place] [address] Shilo Lopez MD [facility] [place] [address] Social History Tobacco Use Types Packs/Day Years [...] EDT Office Visit Hematology/Oncolog y at [address] [phone] Derek Lindquist MD [facility] [place] [address] Ann Tello APRN [address] [place] [address] DR [place] [address] 03/24/2024 1:00 PM EDT Hospital Encounter [place] [address] Shilo Lopez MD [facility] [place] [address] 03/24/2024 1:00 PM EDT - 03/24/2024 1:45 PM EDT [place] [address] Shilo Lopez MD [facility] [place] [address] COLONOSCOPY, DIAGNOSTIC (WRVU 3.26) Scheduled Procedures Name [...] on filedocumented in this encounter Care Teams Milk Tanker Driver Relationship Specialty Start Date End Date Shruthi Arrington MD [address] [place] [address] PCP - General 05/06/10 06/24/23 documented as of this encounter
--- OUTSIDE RECORDS SUMMARY | 2024-01-26 03:10 | XMS_ITS | Referral Summary ---
Author Organization [facility] Address [address] [place] [address] Care Team Providers Care Architectural Technician Name Role Phone Shruthi Arrington MD Primary Care Provider [phone] Encounters Date Type Department Care Team Description 10/28/2023 Lab Requisition [facility] Pathology & Laboratory Medicine - [facility] [address] [place] [address] Outr Resulting Lab, Provider from Last 3 Months Allergies Active Allergy Reactions Criticality Noted Date Comments Sulfamethoprim Medium 10/04/2015 Sulfamethoxazole-Trimethoprim Medium 2015 Cephalexin Medium 10/04/2015 Medications Medication Sig Dispensed Refills Start Date End Date Status ibuprofen (MOTRIN) 800 mg tablet Take 800 mg by mouth 3 times daily as needed for Pain. Active fluticasone (FLONASE) 50 mcg/actuation nasal spray Instill 100 mcg into both nostrils daily. Active Social History Tobacco Use Types Packs/Day Years [...] - - Weight 71.2 kg (157 lb) 10/07/2015929 EDT Height 154.9 cm (5' 1) 10/07/2015 0930 EDT Body Mass Index 29.66 10/07/2015 0930 EDT Plan of Treatment Not on file Procedures Procedure Name Priority Date/Time Associated Diagnosis Comments CEA Routine 10/28/2023 10:25 EDT from Last 3 Months Results * CEA (10/28/2023 10:25 EDT) CEA 1.1 See Note ng/mL 10/28/2023 21:01 EDT [facility] Comment: % Distribution of CEA (ng/mL): ??0.0 - 2.5 in 98.2% of Nonsmokers and 87.3% of Smokers ??2.6 - 5 in 1.8% of Nonsmokers and 8% of Smokers ??5.1 - 10.1 in 4.7% of Smokers NOTE: Serum CEA concentration should not be interpeted as absolute evidence for the presence or absence of malignant disease. ?? Assayed on Siemens TuteeIA Scroll.inaur XPT using chemiluminescent technology. ??Values obtained by different assay methods cannot be used interchangeably. Blood VENOUS BLOOD / Unknown 10/28/2023 10:25 EDT 10/28/2023 19:42 EDT Provider Outr Resulting Lab CHEMISTRY & BLOOD GAS ORDERABLES [facility] [address] [place] [address] from Last 3 Months Care Teams Architectural Technician Relationship Specialty Start Date End Date Shruthi Arrington MD [address] [place] [address] PCP - General 09/16/15
--- OUTSIDE RECORDS SUMMARY | 2024-01-26 03:10 | XMS_ITS | Encounter Summary ---
Author Organization [facility] Address [address] [place] [address] Care Team Providers Care Chip Bin Operator Name Role Phone Shruthi Arrington MD Primary Care Provider [phone] Encounter Details Date Type Department Care Team (Late st Contact Info) Description 06/25/2023 Lab Requisition [facility] Pathology & Laboratory Medicine - [address] [id number] Outr Resulting Lab, Provider Social History Tobacco [...] Priority Date/Time Associated Diagnosis Comments CEA Routine 06/25/2023 9:55 EST documented in this encounter Results * CEA (06/25/2023 9:55 EST) CEA 2.8 See Note ng/mL 06/25/2023 19:23 EST [facility] Comment: % Distribution of CEA (ng/mL): ??0.0 - 2.5 in 98.2% of Nonsmokers and 87.3% of Smokers ??2.6 - 5 in 1.8% of Nonsmokers and 8% of Smokers ??5.1 - 10.1 in 4.7% of Smokers NOTE: Serum CEA concentration should not be interpeted as absolute evidence for the presence or absence of malignant disease. ?? Assayed on Siemens ADVIA Best Before Mediaaur XPT using chemiluminescent technology. ??Values obtained by different assay methods cannot be used interchangeably. Blood VENOUS BLOOD / Unknown 06/25/2023 9:55 EST 06/25/2023 17:46 EST Provider Outr Resulting Lab CHEMISTRY & BLOOD GAS ORDERABLES [facility] [address] [place] [address] documented in this encounter Visit Diagnoses Not on filedocumented in this encounter Care Teams Chip Bin Operator Relationship Specialty Start Date End Date Shruthi Arrington MD [address] [place] [address] PCP - General 09/16/15 documented as of this encounter
--- OUTSIDE RECORDS SUMMARY | 2024-01-26 03:10 | XMS_ITS | Encounter Summary ---
Author Organization [facility] Address [facility] [place] [address] Care Team Providers Care Inkjet Operator Name Role Phone Shruthi Arrington MD Primary Care Provider [phone] Encounter Details Date Type Department Care Team (Late st Contact Info) Description 03/16/2023 3:15 PM EDT - 03/16/2023 4:15 PM EDT [place] [phone] Shilo Lopez MD [facility] [place] [address] LOWER EUS- ENDOSCOPIC ULTRASOUND (WRVU 7.56) Social History Tobacco Use Types Packs/Day Years [...] Sign Reading Time Taken Comments Blood Pressure 139/98 03/16/2023 2:35 PM EDT Pulse 76 03/16/2023 2:35 PM EDT Temperature 36.8 ??C (98.3 ??F) 03/16/2023 2:35 PM ED T Respiratory Rate 18 03/16/2023 2:35 PM EDT Oxygen Saturation 95% 03/16/2023 2:35 PM EDT Inhaled Oxygen Concentration - - [...] occurs, please contact your Doctor. Please call [phone] before 8pm Mon-Fri with problems, questions or concerns. If you call after 8pm or on weekends, call the Hospital at [phone] and ask to speak to the Instant Print Operator shampoo person and the button tufting machine operator will contact that person for you. When should you call for help? Call [phone] anytime you think you may need emergency [...] any problems. Where can you learn more? [facility] View your After Visit Summary and more online at [email or web address] If you would like to provide feedback about your hospital experience, please call the Office of Patient and Family Relations at . If you have received this After Visit Summary in error, please immediately return it in person to the department, or notify the [facility] Privacy Office by calling toll free at between the hours of 8AM and 5PM to arrange for our retrieval of the documents at no cost to you. Content Version: 12.2 ?? 4437-9607 [employer]. Care instructions adapted under license by [facility]. If you have questions about a medical condition or this instruction, always ask your healthcare professional. [employer] disclaims any warranty or liability for your [...] occurs, please contact your Doctor. Please call [phone] before 8pm Mon-Fri with problems, questions or concerns. If you call after 8pm or on weekends, call the Hospital at [phone] and ask to speak to the Instant Print Operator shampoo person and the button tufting machine operator will contact that person for you. When should you call for help? Call [phone] anytime you think you may need emergency [...] any problems. Where can you learn more? [facility] View your After Visit Summary and more online at [email or web address] If you would like to provide feedback about your hospital experience, please call the Office of Patient and Family Relations at . If you have received this After Visit Summary in error, please immediately return it in person to the department, or notify the [facility] Privacy Office by calling toll free at between the hours of 8AM and 5PM to arrange for our retrieval of the documents at no cost to you. Content Version: 12.2 ?? 9237-1081 [employer]. Care instructions adapted under license by [facility]. If you have questions about a medical condition or this instruction, always ask your healthcare professional. [employer] disclaims any warranty or liability for your [...] EDT Office Visit Hematology/Oncolog y at [address] [address] Derek Lindquist MD [facility] [place] [address] Ann Tello APRN [address] [place] [address] [place] [address] 03/24/2024 1:00 PM EDT Hospital Encounter [place] [phone] Shilo Lopez MD [facility] [place] [address] 03/24/2024 1:00 PM EDT - 03/24/2024 1:45 PM EDT [place] [phone] Shilo Lopez MD [facility] [place] [address] COLONOSCOPY, DIAGNOSTIC (WRVU 3.26) Scheduled Procedures Name [...] NGS PANEL Routine 03/16/2023 3:59 PM EDT NON-DIRECTOR OF MARKETING ANALYTICS FINAL REPORT Routine 03/16/2023 3:59 PM EDT SURGICAL PATHOLOGY REPORT Routine 03/16/2023 3:59 PM EDT SPECIMEN TO PATHOLOGY Routine 03/16/2023 3:59 PM EDT CYTOPATHOLOGY NON-GYNECOLOGICAL Routine 03/16/2023 3:59 PM EDT LOWER EUS-ENDOSCOPIC ULTRASOUND Routine 03/16/2023 2:57 PM EDT Upgi Endoscopy W/Us Fn Bx ([id number]) 03/16/2023 2:54 PM EDT Lower Eus with Guzman or me in the next two weeks Colonic mass Colonoscopy, Biopsy ([id number]) 03/16/2023 2:54 PM EDT Lower Eus with Guzman or me in the next two weeks Colonic mass Rectum Surgery Procedure Unlisted ([id number]) 03/16/2023 2:54 PM EDT Lower Eus with Guzman or me in the next two weeks Colonic mass documented in this encounter Results * Solid Tumor NGS Panel (03/16/2023 3:59 PM EDT) Tissue 03/16/2023 3:59 PM EDT 04/12/2023 11:37 AM EDT Narrative Resulting Agency Comment Spec In Lab Shilo Lopez MD PATHOLOGY/CYTOLOGY ORDERABLES [facility] [place] [address] * Non-Roller Maker Final Report (03/16/2023 3:59 PM EDT) Diagnosis Discussion [id number] ? Location: 4T; EA12; A The signing pathologist has (i) examined the relevant preparation(s) for the specimen(s) and (ii) rendered or confirmed the diagnosis(es). . ? Non-Roller Maker Final DIAGNOSIS Atypical Electronically signed by: ?Joseph ESPOSITO, Teagan Verified: ??03/18/2023 18:21 ??Pathologist Performed at: ??-[facility] Dept. of Pathology, [place] [address] Cryptological Technician: Alejandra Parmar MD, FCAP, ??CLIA Certificate: [id number] DISCUSSION Pericecal mass (EUS-guided FNA): The smears show a few groups of glandular cells, some with mild atypia, and a few fragments of fibrous stroma. The cell block contains rare minute fragments of fibrous stroma. ? Additional deeper levels examined. The material might not be fully hvac sales representative of the target lesion. Clinical and radiologic correlation is required. Please see the concurrent surgical pathology specimen of ?cecal mass biopsy, [id number]. Intradepartmental consultation documentation, [facility] - Dr. Marin (GI pathology) concurs. CLINICAL [...] for final interpretation. 03/18/2023 6:21 PM EDT [facility] Misc. FNA 03/16/2023 3:59 PM EDT 03/16/2023 3:59 PM EDT Shilo Lopez MD PATHOLOGY/CYTOLOGY ORDERABLES [facility] [place] [address] [facility] [place] [address] * Surgical Pathology Report (03/16/2023 3:59 PM EDT) Final Diagnosis [id number] ? Location: 4T; EA12; A The signing pathologist has (i) examined the relevant preparation(s) for the specimen(s) and (ii) rendered or confirmed the diagnosis(es). . ?Surgical Pathology DIAGNOSIS A - Cecal mass bx's, biopsy (Multiple): - Adenocarcinoma, moderately differentiated, see discussion. Electronically signed by: ?Kimberly Marin MD Verified: ??03/18/2023 17:51 ??Pathologist Performed at: ??-[facility] Dept. of Pathology, [place] [address] Cryptological Technician: Alejandra Parmar MD, FCAP, ??IA Certificate: [id number] DISCUSSION Immunostains for MLH1, MSH2, MSH6 and [...] The assay was performed according to the station jailer's instructions using anti-MLH-1 (ES05), anti-MSH-2 ([id number]), anti-MSH-6 (44), and anti-PMS-2 (MRQ-28) antibodies. Whole slide scan: [id number] A1-1 SPECIMEN(S) SUBMITTED A - cecal mass bx's, biopsy (Multiple) CLINICAL INFORMATION 67-year-old with cecal mass SPECIMEN PROCESSING A - Labeled/Fixative: Cecal mass BX, formalin. Quantity/Size: Five, ranging from 0.2-0.5 cm. Tissue Description: Soft, pink tissues. Sections/Processing: Submitted in toto ??in 1 cassette labeled A1. ??sdy 03/18/2023 5:51 PM EDT [facility] GI Biopsy 03/16/2023 3:59 PM EDT 03/16/2023 3:59 PM EDT Shilo Lopez MD PATHOLOGY/CYTOLOGY ORDERABLES Performing Organization Address [facility]/ZIP Co de Phone Number [facility] [address] [place] [address] * Cytopathology Non-Gynecological (03/16/2023 3:59 PM EDT) AP Specimen 03/16/2023 3:59 PM EDT 03/16/2023 3:59 PM EDT Narrative [facility] - 03/16/2023 3:59 PM EDT Specimen requisition ordered. ??Separate Pathology report to follow Shilo Lopez MD PATHOLOGY/CYTOLOGY ORDERABLES Performing Organization Address City/[facility]/ZIP Co de Phone Number [facility] [place] [address] * Specimen to Pathology (03/16/2023 3:59 PM EDT) AP Specimen 03/16/2023 3:59 PM EDT 03/16/2023 3:59 PM EDT Narrative [facility] - 03/16/2023 3:59 PM EDT Specimen requisition ordered. ??Separate Pathology report to follow Shilo Lopez MD PATHOLOGY/CYTOLOGY ORDERABLES Performing Organization Address City/[facility]/ZIP Co de Phone Number [facility] [place] [address] * LOWER EUS-ENDOSCOPIC ULTRASOUND (03/16/2023 2:57 PM EDT) LOWER EUS [facility] Endoscopy ___ Procedure Date: 03/16/2023 2:57 PM ? Patient Name: Blanca Lujan ? Date of : 1955 ? Age: 67 ? Order #: [id number] ? Instrument Name: EUS Linear (Reba),[id number] ? ___ Procedure: ? Lower EUS Indications: ? Possible colon mass Providers: ? Shilo Lopez MD, Walt Kruse ? Shon Medina, RN, ? Xavier Wise MD: ?Shruthi Arrington MD [...] cancer, and adverse medication ? reactions. The [id number] was ? introduced through the anus and [...] Wed03/16/23 at 1701, Endoscopy (Day of Procedure) 1452 (New Bag - Prov ider: Rama Nicolas RN)1452 (Paused - Provider: Rama Schmidt CRNA - Comment: Switch to gravity)1453 (Restarted - Provider: Rama Schmidt CRNA) documented in this encounter Care Teams Inkjet Operator Relationship Specialty Start Date End Date Shruthi Arrington MD [address] [place] [address] PCP - General 05/06/10 06/24/23 documented as of this encounter
--- OUTSIDE RECORDS SUMMARY | 2024-01-26 03:10 | XMS_ITS | Encounter Summary ---
Author Organization [facility] Address [address] [place] [address] Care Team Providers Care Swimming Pool Attendant Name Role Phone Shruthi Arrington MD Primary Care Provider [phone] Encounter Details Date Type Department Care Team (Late st Contact Info) Description 10/09/2021 Lab Requisition [facility] Pathology & Laboratory Medicine - [address] [address] Outr Resulting Lab, Provider Social History Tobacco [...] Procedure Name Priority Date/Time Associated Diagnosis Comments ZZCOVID-19 TEST [facility] PCR Today 10/08/2021 16:20 EDT COVID-19 TESTING Routine 10/08/2021 16:2 0 EDT documented in this encounter Results * COVID-19 TEST [facility] PCR (10/08/2021 16:20 EDT) Swab 10/08/2021 16:2 0 EDT 10/09/2021 18:43 EDT Provider Outr Resulting Lab MICROBIOLOGY - GENERAL ORDERABLES [facility] [address] [place] [address] * COVID-19 TESTING (10/08/2021 16:20 EDT) COVID-19 rt-PCR Result Negative Negative 10/10/2021 11:32 EDT [facility] Comment: This test has not been FDA cleared or approved. This test has been authorized by FDA under an EUA for use by authorized laboratories. This test has been authorized only for detection of nucleic acid from 2019-nCoV, not for any other viruses or pathogens. This test is only authorized for the duration of the declaration that circumstances exist justifying the authorization of emergency use of in vitro diagnostic tests for detection and/or diagnosis of 2019-nCoV under section 564(b)(1) of Act, 21 U.S.C ?? 360bbb-3(b) (1), unless the authorization is terminated or revoked sooner. Negative results do not preclude 2019-nCoV infection and should not be used as the sole basis for treatment or other patient management decisions. Negative results must be combined with clinical observations, patient history, and epidemiological information. Testing was performed using the violet SARS-CoV-2 assay ([employer] on the Violet 6800 System Performing Lab Violet 6800 [facility] 10/10/2021 11:32 EDT [facility] Swab 10/08/2021 16:2 0 EDT 10/09/2021 18:43 EDT Provider Outr Resulting Lab MICROBIOLOGY - GENERAL ORDERABLES Performing Organization Address City/State/[facility] Co de Phone Number [facility] [address] [place] [address] documented in this encounter Visit Diagnoses Not on filedocumented in this encounter Care Teams Swimming Pool Attendant Relationship Specialty Start Date End Date Shruthi Arrington MD [address] [place] [address] PCP - General 09/16/15 documented as of this encounter
--- OUTSIDE RECORDS SUMMARY | 2024-01-26 03:10 | XMS_ITS | Encounter Summary ---
Author Organization [facility] [place] [address] Care Team Providers Care Gate Agent Name Role Phone Shruthi Arrington MD Primary Care Provider [phone] Encounter Details Date Type Department Care Team (Late st Contact Info) Description 03/21/2023 Telephone [place] [address] Ema Garcia MD [facility] [place] [address] Social History Tobacco Use Types Packs/Day Years [...] Encounter - Ema Garcia MD - 03/21/2023 10:58 AM EDT Phone call to patient 03/21/23 11:00 AM Re: left VM on daughter's cell phone and on patient's cell phone regarding biopsies from recent colonoscopy positive for tumor. Recommended that I talk with them either today, later today versus tomorrow morning between 7 and 7:30 AM. 03/16/2023 patient underwent colonoscopy with biopsy by Dr. Lopez for abnormality on CT scan: Biopsies: Invasive adenocarcinoma MMR intact Patient was seen in clinic with Dr. Garcia 02/25/2023, presented at multidisciplinary tumor conference03/02/2023 and underwent colonoscopy with Dr. Lopez 03/16/2023, biopsies have returned and identified invasive adenocarcinoma, MMR inTACT. Patient had evidence of abnormal finding on CT scan with multiloculated collection along the psoas and in the right lower quadrant anterior abdominal wall. Colonoscopy showed evidence of mass at the ileocecal junction and could not intubate ileocecal valve and biopsies are proven positive for cancer, unclear if this is a ileal primary versus appendiceal primary. Patient's CEA is elevated at 12.1 Currently patient is staged as a T4 NX M1, peritoneal involvement Recommendations and plan: Plan to speak with patient/family in the next 24 hours to discuss results and plan for treatment Will place urgent oncologic referral for systemic treatment Will discuss plan with HIP center, [facility] Ema Garcia MD, MS, FACS, FASCRS Chief, Division of Colon and Rectal Surgery [facility] Pager [phone] documented in this encounter Plan of Treatment Upcoming Encounters Date Type Department Care Team (Late st Contact Info) Description 01/28/2024 10:30 AM EDT Office Visit Hematology/Oncolog y at [address] [phone] Derek Lindquist MD [facility] [place] [address] Ann Tello APRN [address] [place] [address] DR HEMATOLOGY [place] [address] 03/24/2024 1:00 PM EDT Hospital Encounter [place] [address] Shilo Lopez MD [facility] [place] [address] 03/24/2024 1:00 PM EDT - 03/24/2024 1:45 PM EDT Surgery [place] [phone] Shilo Lopez MD [facility] [place] [address] COLONOSCOPY, DIAGNOSTIC (WRVU 3.26) Scheduled Procedures Name [...] on filedocumented in this encounter Care Teams Gate Agent Relationship Specialty Start Date End Date Shruthi Arrington MD [address] [place] [address] PCP - General 05/06/10 06/24/23 documented as of this encounter
--- OUTSIDE RECORDS SUMMARY | 2024-01-26 03:10 | XMS_ITS | Encounter Summary ---
Author Organization [facility] Address [facility] [place] [address] Care Team Providers Care Residential Collections Name Role Phone Shruthi Arrington MD Primary Care Provider [phone] Encounter Details Date Type Department Care Team (Latest Contact Info) Description 02/25/2023 Travel Social History Tobacco Use Types Packs/Day [...] EDT Office Visit Hematology/Oncolog y at [address] [phone] Derek Lindquist MD [facility] [place] [address] Ann Tello APRN [address] [place] [address] [place] [address] 03/24/2024 1:00 PM EDT Hospital Encounter [place] [address] Shilo Lopez MD [facility] DR [place] [address] 03/24/2024 1:00 PM EDT - 03/24/2024 1:45 PM EDT Surgery [place] [address] hSilo Lopez MD [facility] [place] [address] COLONOSCOPY, DIAGNOSTIC (WRVU 3.26) Scheduled Procedures Name [...] on filedocumented in this encounter Care Teams Residential Collections Relationship Specialty Start Date End Date Shruthi Arrington MD [address] [place] [address] PCP - General 05/06/10 06/24/23 documented as of this encounter
--- OUTSIDE RECORDS SUMMARY | 2024-01-26 03:10 | XMS_ITS | Encounter Summary ---
Author Organization [facility] [place] [address] Care Team Providers Care Civil Technician Name Role Phone Shruthi Arrington MD Primary Care Provider [phone] Encounter Details Date Type Department Care Team (Late st Contact Info) Description 10/09/2021 Ancillary Procedure [place] [phone] Shruthi Arrington MD [address] [place] [address] Social History Tobacco Use Types Packs/Day Years [...] EDT Office Visit Hematology/Oncolog y at [address] [phone] Derek Lindquist MD [facility] [place] [address] Ann Tello APRN [address] [place] [address] DR HEMATOLOGY AND ONCOLOGY [place], [place] [address] 03/24/2024 1:00 PM EDT Hospital Encounter [place] [address] Shilo Lopez MD [facility] [place] [address] 03/24/2024 1:00 PM EDT - 03/24/2024 1:45 PM EDT Surgery [place] [address] Shilo Lopez MD [facility] [place] [address] COLONOSCOPY, DIAGNOSTIC (WRVU 3.26) Scheduled Procedures Name [...] Associated Diagnosis Comments FILM LIBRARY STORAGE ONLY CT ABDOMEN AND PELVIS Routine 10/09/2021 12:00 AM EDT documented in this encounter Results * Film Library- Storage Only CT Abdomen & Pelvis (10/09/2021 12:00 AM EDT) Narrative [facility] - 02/19/2023 10:13 PM EDT This exam is auto-finalizing. It's purpose is for storage only. Shruthi Arrington MD IMG FILM LIBRARY ORD ERABLES [place], [place] documented in this encounter Visit Diagnoses Not on filedocumented in this encounter Care Teams Civil Technician Relationship Specialty Start Date End Date Shruthi Arrington MD [address] [place] [address] PCP - General 05/06/10 06/24/23 documented as of this encounter
--- OUTSIDE RECORDS SUMMARY | 2024-01-26 03:10 | XMS_ITS | Encounter Summary ---
Author Organization [facility] [place] [address] Care Team Providers Care Clerk To Justice Name Role Phone Shruthi Arrington MD Primary Care Provider [phone] Reason for Referral * Consultation (Urgent) - Closed Specialty Diagnoses / Procedures Referred By Contsarbjit t Referred To Contact Hematology and Oncology Diagnoses Abnormal CT scan, gastrointestinal tract Elevated carcinoembryonic antigen (CEA) Adenocarcinoma, appendix Ema Garcia MD [facility] [address] [facility] [place] [address] [facility] Hem Onc [address] [place] [address] Referral ID Status Reason Start Date Expiration Date V isits Requested Visits Authorized [id number] Closed Consult, Test & Treat 03/21/2023 03/20/2024 1 1 Encounter Details Date Type Department Care Team (Late st Contact Info) Description 03/21/2023 Orders [place] [address] Ema Garcia MD [facility] DR GENER[place] [address] scan, gastrointestinal tract; Elevated carcinoembryonic antigen (CEA); Adenocarcinoma, appendix Social History Tobacco Use Types [...] AM EDT Office Visit Hematology/Oncolog y at [address] [address] Derek Lindquist MD [facility] [place] [address] Ann Tello APRN [address] [place] [address] DR HEMATOLOGY AND ONCOLOGY [place], [place] [address] 03/24/2024 1:00 PM EDT Hospital Encounter [place] [phone] Shilo Lopez MD [facility] DR GASTROENTER[place] [address] 03/24/2024 1:00 PM EDT - 03/24/2024 1:45 PM EDT Surgery [place] [address] Shilo Lopez MD [facility] GASTROENTEROLOG[place] [address] COLONOSCOPY, DIAGNOSTIC (WRVU 3.26) Scheduled Procedures Name [...] Associated Diagnoses Orde r Schedule Referral to Hematology and Oncology Outpatient Referral Urgent Abnormal CT scan, gastrointestinal tract Elevated carcinoembryonic antigen (CEA) Adenocarcinoma, appendix Ordered: 03/21/2023 documented as of this encounter Visit Diagnoses Diagnosis Abnormal CT scan, gastrointestinal tract Nonspecific (abnormal) findings on radiological and other examination of gastrointestinal tract Elevated carcinoembryonic antigen (CEA) Elevated carcinoembryonic antigen [CEA] Adenocarcinoma, appendix Malignant neoplasm of appendix vermiformis documented in this encounter Care Teams Clerk To Justice Relationship Specialty Start Date End Date Shruthi Arrington MD [address] [place] [address] PCP - General 05/06/10 06/24/23 documented as of this encounter
--- OUTSIDE RECORDS SUMMARY | 2024-01-26 03:10 | XMS_ITS | Encounter Summary ---
Author Organization [facility] Address [address] [place] [address] Care Team Providers Care Oil Painter Name Role Phone Shruthi Arrington MD Primary Care Provider [phone] Encounter Details Date Type Department Care Team (Late st Contact Info) Description 04/30/2023 Lab Requisition [facility] Pathology & Laboratory Medicine - [address] [phone] Outr Resulting Lab, Provider Social History Tobacco [...] Priority Date/Time Associated Diagnosis Comments CEA Routine 04/29/2023 13:08 EST documented in this encounter Results * CEA (04/29/2023 13:08 EST) CEA 8.3 See Note ng/mL 04/30/2023 19:35 EST [facility] Comment: % Distribution of CEA (ng/mL): ??0.0 - 2.5 in 98.2% of Nonsmokers and 87.3% of Smokers ??2.6 - 5 in 1.8% of Nonsmokers and 8% of Smokers ??5.1 - 10.1 in 4.7% of Smokers NOTE: Serum CEA concentration should not be interpeted as absolute evidence for the presence or absence of malignant disease. ?? Assayed on Siemens ADVIA Parascaleaur XPT using chemiluminescent technology. ??Values obtained by different assay methods cannot be used interchangeably. Blood VENOUS BLOOD / Unknown 04/29/2023 13:08 EST 04/30/2023 17:25 EST Provider Outr Resulting Lab CHEMISTRY & BLOOD GAS ORDERABLES [facility] [address] [place] [address] documented in this encounter Visit Diagnoses Not on filedocumented in this encounter Care Teams Oil Painter Relationship Specialty Start Date End Date Shruthi Arrington MD [address] [place] [address] PCP - General 09/16/15 documented as of this encounter
--- OUTSIDE RECORDS SUMMARY | 2024-01-26 03:10 | XMS_ITS | Encounter Summary ---
Author Organization [facility] [place] [address] Care Team Providers Care Wire Rigger Name Role Phone Shruthi Arrington MD Primary Care Provider [phone] Encounter Details Date Type Department Care Team (Late st Contact Info) Description 02/19/2023 10:15 PM EDT Ancillary Procedure Radiology [place] [phone] Shruthi Arrington MD [address] [place] [address] Social History Tobacco Use Types Packs/Day Years [...] EDT Office Visit Hematology/Oncolog y at [address] [phone] Derek Lindquist MD [facility] [place] [address] Ann Tello APRN [address] [place] [address] DR HEMATOLOGY AND ONCOLOGY [place], [place] [address] 03/24/2024 1:00 PM EDT Hospital En[place] [address] Shilo Lopez MD [facility] [place] [address] 03/24/2024 1:00 PM EDT - 03/24/2024 1:45 PM EDT [place] [address] Shilo Lopez MD [facility] [place] [address] COLONOSCOPY, DIAGNOSTIC (WRVU 3.26) Scheduled Procedures Name [...] STORAGE ONLY CT ABDOMEN AND PELVIS Routine 02/19/2023 10:13 PM EDT documented in this encounter Results * Film Library- Storage Only CT Abdomen & Pelvis (02/19/2023 10:13 PM EDT) Narrative [facility] - 02/19/2023 10:13 PM EDT This exam is auto-finalizing. It's purpose is for storage only. Shruthi Arrington MD IMG FILM LIBRARY ORD ERABLES [place], [place] documented in this encounter Visit Diagnoses Not on filedocumented in this encounter Care Teams Wire Rigger Relationship Specialty Start Date End Date Shruthi Arrington MD [address] [place] [address] PCP - General 05/06/10 06/24/23 documented as of this encounter
--- OUTSIDE RECORDS SUMMARY | 2024-01-26 03:11 | XMS_ITS | Encounter Summary ---
Author Organization [facility] Address [address] [place] [address] Care Team Providers Care Dry Wall Installer Name Role Phone Unavailable Primary Care Provider Unavailabl e Encounter Details Date Type Department Care Team (Late st Contact Info) Description 08/06/2009 Results Only [facility] Services - [facility] ([facility]) [address] [place], [place] [address] Gisell Choudhary, AUTO CARE CENTER MANAGER [facility] [address] [place] [address] Social History Tobacco Use Types Packs/Day Years Used Date Smoking Tobacco: Never Assessed Sex and Gender Information Value Date Recorded Sex Assigned at Not on file Gender Identity Not on file Sexual Orientation Not on file documented as of this encounter Plan of Treatment Not on file documented as of this encounter Procedures Procedure Name Priority Date/Time Associated Diagnosis Comments CYTOPATHOLOGY Routine 08/06/2009 0:00 EST documented in this encounter Results * CYTOPATHOLOGY (08/06/2009 0:00 EST) Pathology Report: CYTOPATHOLOGY REPORT ? Reports generated via electronic interface contain original data; ? however they are lacking the format of the original report. ? Caution should be taken when reading/interpreti ng unformatted reports. ? Name: ? BLANCA LOPEZ ? Accession #: ? [id number] ? : ? 1955 (Age: 53) ??F ?Collect Date: ? 08/06/2009 ? Location: ? [facility] ? Receive Date: ? 08/07/2009 ? Provider: ?GISELL CHOUDHARY NP ? Copy to: ? Specimen/Source: ?Pap Test, Cervix/Endocervix, ThinPrep Imaging System ? with manual evaluation ? Last Menstrual Period: ? 5 years ? Previous Gynecologic Pathology: ? Yes: abnormal pap several years ago, negative since ? SPECIMEN ADEQUACY ? Satisfactory for Evaluation ? - transformation zone component present ? GENERAL CATEGORIZATION ? Negative for Intraepithelial Lesion or Malignancy ? INTERPRETATION ? Shift in vinnie present suggestive of bacterial vaginosis. ? Document reviewed and electronically signed by: ? Lynan Buddy, CT(ASCP) ? Report Date: ??08/08/2009 09:45 ? End of Report ? NICO JOHN 08/06/2009 08/07/2009 Gisell Choudhary AUTO CARE CENTER MANAGER PATHOLOGY ORDERABLES [facility] [address] [place] [address] documented in this encounter Visit Diagnoses Not on filedocumented in this encounter
--- OUTSIDE RECORDS SUMMARY | 2024-01-26 03:11 | XMS_ITS | Encounter Summary ---
Author Organization [facility] Address [address] [place] [address] Care Team Providers Care Tribunal Member Name Role Phone Shruthi Arrington MD Primary Care Provider [phone] Reason for Visit * Reason Comments Post Traumatic Stress Disorder * Consult (Routine) - Closed Specialty Diagnoses / Procedures Referred By Macy jarquin Referred To Contact Psychiatry Diagnoses Other specified anxiety disorders Procedures CONSULT PSYCHIATRY Shruthi Arrington MD [address] [place] [address] [place] [address] [place] [address] Referral ID Status Reason Start Date Expiration Date Visits Re quested Visits Authorized [id number] Closed 1 1 Encounter Details Date Type Department Care Team (Late st Contact Info) Description 10/02/2015 12:30 EDT Office Visit [address] [phone] Julia Rg [address], [facility] [address] [place] [phone] PTSD (post-traumatic stress disorder) (Primary Dx) Social History Tobacco Use Types Packs/Day Years Used Date Smoking Tobacco: Never Assessed Sex and Gender Information Value Date Recorded Sex Assigned at Not on file Gender Identity Not on file Sexual Orientation Not on file documented as of this encounter Plan of Treatment Not on file documented as of this encounter Visit Diagnoses Diagnosis PTSD (post-traumatic stress disorder)- Primary Posttraumatic stress disorder documented in this encounter Historical Medications * This list may reflect changes made after this encounter. Medication Sig Dispensed Refills Start Date End Date fluticasone (FLONASE) 50 mcg/actuation nasal spray Instill 100 mcg into both nostrils daily. ibuprofen (MOTRIN) 800 mg tablet Take 800 mg by mouth 3 times daily as needed for Pain. methylphenidate 36 mg CR tablet Take 36 mg by mouth every morning. 10/16/2015 methylphenidate 27 mg CR tabletIndications:early afternoon Take 27 mg by mouth daily. 10/16/2015 cyclobenzaprine (FLEXERIL) 10 mg tablet Take 10 mg by mouth 3 times daily as needed for Muscle Spasms. 10/16/2015 venlafaxine (EFFEXOR) 75 mg tablet Take 37.5 mg by mouth 3 times daily. 75mg in AM, 37.5mg in PM 10/16/2015 cloNIDine HCl (CATAPRES) 0.1 mg tablet Take 0.1 mg by mouth 4 times daily as needed. 10/16/2015 added in this encounter Care Teams Tribunal Member Relationship Specialty Start Date End Date Shruthi Arrington MD [address] [place] [address] PCP - General 09/16/15 documented as of this encounter
--- OUTSIDE RECORDS SUMMARY | 2024-01-26 03:11 | XMS_ITS | Encounter Summary ---
Author Organization [facility] Address [address] [place] [address] Care Team Providers Care Old Coin Dealer Name Role Phone Shruthi Arrington MD Primary Care Provider [phone] Encounter Details Date Type Department Care Team (Late st Contact Info) Description 10/07/2015 Documentation Visit [facility] [address] [place] [address] Calli Louis, [address] [address] Social History Tobacco Use Types Packs/Day Years Used Date Smoking Tobacco: Never Assessed Sex and Gender Information Value Date Recorded Sex Assigned at Not on file Gender Identity Not on file Sexual Orientation Not on file documented as of this encounter Plan of Treatment Not on file documented as of this encounter Visit Diagnoses Not on filedocumented in this encounter Care Teams Old Coin Dealer Relationship Specialty Start Date End Date Shruthi Arrington MD [address] [place] [address] PCP - General 09/16/15 documented as of this encounter
--- OUTSIDE RECORDS SUMMARY | 2024-01-26 03:11 | XMS_ITS | Encounter Summary ---
Author Organization [facility] Address [address] [place] [address] Care Team Providers Care Vocational Rehabilitation Consultant Name Role Phone Shruthi Arrington MD Primary Care Provider [phone] Reason for Visit * Reason Comments Post Traumatic Stress Disorder Encounter Details Date Type Department Care Team (Late st Contact Info) Description 11/13/2015 13:00 EDT Office Visit [address] [phone] Ellyn Bray, PELLET POST INSPECTOR [address] [place], [place] [address] PTSD (post-traumatic stress disorder) (Primary Dx) Social History Tobacco Use Types Packs/Day Years Used Date Smoking Tobacco: Never Assessed Sex and Gender Information Value Date Recorded Sex Assigned at Not on file Gender Identity Not on file Sexual Orientation Not on file documented as of this encounter Ordered Prescriptions Prescription Sig Dispensed Refills Start Date End Da te methylphenidate (CONCERTA) 36 mg CR tablet Take 1 Tab by mouth every morning for 30 days. Daily Max: 36 mg 30 Tab 0 11/13/2015 12/13/2015 sertraline (ZOLOFT) 50 mg tablet Take 1 Tab by mouth daily for 60 doses. Pt will take 1 1/2 tabs PO (75 mg QD). May increase to two tabs (100 mg) QD in 5-7 days if tolerated 60 Tab 0 11/15/2015 01/14/2016 gabapentin (NEURONTIN) 300 mg capsule Take 1 Cap by mouth 3 times daily for 30 days. 90 Cap 0 11/23/2015 12/23/2015 documented in this encounter Plan of Treatment Not on file documented as of this encounter Visit Diagnoses Diagnosis PTSD (post-traumatic stress disorder)- Primary Posttraumatic stress disorder documented in this encounter Discontinued Medications Medication Sig Discontinue Reason Start Date End Da te gabapentin (NEURONTIN) 100 mg capsule One cap po q4h prn muscle spasm or nerve pain 10/11/2015 11/13/2015 gabapentin (NEURONTIN) 300 mg capsule Take 1 Cap by mouth 3 times daily for 30 days. Reorder 10/23/2015 11/13/2015 sertraline (ZOLOFT) 50 mg tablet Take 1 Tab by mouth daily for 30 days. Reorder 10/16/2015 11/13/2015 methylphenidate 36 mg CR tablet Take 1 Tab by mouth every morning for 30 days. Daily Max: 36 mg Reorder 10/16/2015 11/13/2015 documented as of this encounter Care Teams Vocational Rehabilitation Consultant Relationship Specialty Start Date End Date Shruthi Arrington MD [address] [place] [address] PCP - General 09/16/15 documented as of this encounter
--- OUTSIDE RECORDS SUMMARY | 2024-01-26 03:11 | XMS_ITS | Encounter Summary ---
Author Organization [facility] Address [address] [place] [address] Care Team Providers Care Equal Opportunity Assistant Name Role Phone Shruthi Arrington MD Primary Care Provider [phone] Reason for Visit * Reason Onset Date Comments Other 10/07/2015 Encounter Details Date Type Department Care Team (Late st Contact Info) Description 10/07/[address] [phone] Julia Rg, [address] [place] [phone] Other Social History Tobacco Use Types Packs/Day Years Used Date Smoking Tobacco: Never Assessed Sex and Gender Information Value Date Recorded Sex Assigned at Not on file Gender Identity Not on file Sexual Orientation Not on file documented as of this encounter Plan of Treatment Not on file documented as of this encounter Visit Diagnoses Not on filedocumented in this encounter Care Teams Equal Opportunity Assistant Relationship Specialty Start Date End Date Shruthi Arrington MD [address] [place] [address] PCP - General 09/16/15 documented as of this encounter
--- OUTSIDE RECORDS SUMMARY | 2024-01-26 03:11 | XMS_ITS | Encounter Summary ---
Author Organization [facility] Address [address] [place] [address] Care Team Providers Care Melter Helper Name Role Phone Shruthi Arrington MD Primary Care Provider [phone] Reason for Visit * Reason Comments Post Traumatic Stress Disorder Encounter Details Date Type Department Care Team (Late st Contact Info) Description 10/22/2015 11:00 EDT Office Visit [address] [address] Ellyn Bray, CAROLYN [address] [place] [address] PTSD (post-traumatic stress disorder) (Primary Dx) Social History Tobacco Use Types Packs/Day Years Used Date Smoking Tobacco: Never Assessed Sex and Gender Information Value Date Recorded Sex Assigned at Not on file Gender Identity Not on file Sexual Orientation Not on file documented as of this encounter Ordered Prescriptions Prescription Sig Dispensed Refills Start Date End Da te gabapentin (NEURONTIN) 300 mg capsule Take 1 Cap by mouth 3 times daily for 30 days. 90 Cap 0 10/23/2015 11/13/2015 documented in this encounter Plan of Treatment Not on file documented as of this encounter Visit Diagnoses Diagnosis PTSD (post-traumatic stress disorder)- Primary Posttraumatic stress disorder documented in this encounter Care Teams Melter Helper Relationship Specialty Start Date End Date Shruthi Arrington MD [address] [place] [address] PCP - General 09/16/15 documented as of this encounter
--- OUTSIDE RECORDS SUMMARY | 2024-01-26 03:11 | XMS_ITS | Encounter Summary ---
Author Organization [facility] Address [address] [place] [address] Care Team Providers Care Jig Grinder Name Role Phone Shruthi Arrington MD Primary Care Provider [phone] Reason for Visit * Reason Comments Anxiety Encounter Details Date Type Department Care Team (Late st Contact Info) Description 11/27/2015 11:30 EDT Office Visit [address] [phone] Robby Morrison [facility] B[place]ESS WARD [address] [address] PTSD (post-traumatic stress disorder) (Primary Dx) Social History Tobacco Use Types Packs/Day Years Used Date Smoking Tobacco: Never Assessed Sex and Gender Information Value Date Recorded Sex Assigned at Not on file Gender Identity Not on file Sexual Orientation Not on file documented as of this encounter Miscellaneous Notes * Addendum Note - Robby Morrison MD - 12/09/2015 1021 EDTAddended by: ROBBY MORRISON on: 12/09/2015 10:21 Modules accepted: Level of Service documented in this encounter Plan of Treatment Not on file documented as of this encounter Visit Diagnoses Diagnosis PTSD (post-traumatic stress disorder)- Primary Posttraumatic stress disorder documented in this encounter Discontinued Medications Medication Sig Discontinue Reason Start Date End Da te cloNIDine HCl (CATAPRES) 0.1 mg tablet Take 1 Tab by mouth every morning. 10/16/2015 11/27/2015 documented as of this encounter Care Teams Jig Grinder Relationship Specialty Start Date End Date Shruthi Arrington MD [address] [place] [address] PCP - General 09/16/15 documented as of this encounter
--- OUTSIDE RECORDS SUMMARY | 2024-01-26 03:11 | XMS_ITS | Encounter Summary ---
Author Organization [facility] Address [address] [place] [address] Care Team Providers Care Tool Designer Apprentice Name Role Phone Shruthi Arrington MD Primary Care Provider Encounter Details Date Type Department Care Team (Late st Contact Info) Description 11/13/2015 10:17 EDT - 11/27/2015 14:59 EDT Hospital Encounter [address] [address] [address] Discharge Disposition: Home or Self Care Social History Tobacco Use Types Packs/Day Years Used Date Smoking Tobacco: Never Assessed Sex and Gender Information Value Date Recorded Sex Assigned at Not on file Gender Identity Not on file Sexual Orientation Not on file documented as of this encounter Discharge Diagnoses Diagnosis F43.10 Post-traumatic stress disorder, unspecified-F43.10[ICD-10-CM] documented in this encounter Medications at Time of Discharge Medication Sig Dispensed Refills Start Date End Date fluticasone (FLONASE) 50 mcg/actuation nasal spray Instill 100 mcg into both nostrils daily. ibuprofen (MOTRIN) 800 mg tablet Take 800 mg by mouth 3 times daily as needed for Pain. gabapentin (NEURONTIN) 300 mg capsule Take 1 Cap by mouth 3 times daily for 30 days. 90 Cap 0 11/23/2015 12/23/2015 methylphenidate (CONCERTA) 36 mg CR tablet Take [...] if tolerated 60 Tab 0 11/15/2015 01/14/2016 documented as of this encounter Discharge Disposition Disposition Code Departure Means Destination Home or Self Prison documented in this encounter Plan of Treatment Not on file documented as of this encounter Visit Diagnoses Not on filedocumented in this encounter Care Teams Tool Designer Apprentice Relationship Specialty Start Date End Date Shruthi Arrington MD [address] [place] [address] PCP - General 09/16/15 documented as of this encounter
--- OUTSIDE RECORDS SUMMARY | 2024-01-26 03:11 | XMS_ITS | Encounter Summary ---
Author Organization [facility] Address [address] [place] [address] Care Team Providers Care Scrap Hoist Operator Name Role Phone Unavailable Primary Care Provider Unavailabl e Encounter Details Date Type Department Care Team (Late st Contact Info) Description 09/29/2001 Results Only [facility] - [facility] conversion [address] [place] [address] Shaila Martinez MD [address] [place] [address] [place] [address] Social History Tobacco Use Types Packs/Day Years Used Date Smoking Tobacco: Never Assessed Sex and Gender Information Value Date Recorded Sex Assigned at Not on file Gender Identity Not on file Sexual Orientation Not on file documented as of this encounter Plan of Treatment Not on file documented as of this encounter Procedures Procedure Name Priority Date/Time Associated Diagnosis Comments CYTOPATHOLOGY Routine 09/29/2001 0:00 EDT SURGICAL PATHOLOGY Routine 09/29/2001 0:00 EDT documented in this encounter Results * SURGICAL PATHOLOGY (09/29/2001 0:00 EDT) Pathology Report: SURGICAL PATHOLOGY REPORT Reports generated via electronic interface contain original data; however they are lacking the format of the original report. Caution should be taken when reading/interpreti ng unformatted reports. Name: ? BLANCA LOPEZ ? Accession #: ? [id number] ? : ? 1955 (Age: 45) ??F ? Collect Date: ? 09/29/2001 ? Location: ? [facility] ? Receive Date: ? 10/03/2001 ? Provider: SHAILA MARTINEZ MD Copy to: [facility] [facility] ? Final Pathologic Diagnosis: ? Endocervix, curettage: 1. ?Fragments of benign endocervical tissue with squamous metaplasia. 2. ?No dysplasia identified. ??See comment. Comment: ? Multiple deeper levels have been examined. (Dr. Brock[place] [place] reviewed and electronically signed by: Radha Brock MD Report ??Date: 10/11/2001 15:25 By the signature above, the attending physician certifies that he/she has personally conducted a gross and/or microscopic examination of the described specimens and rendered or confirmed the above diagnosis. Specimen(s) Received: ? ECC Clinical History: ? 08/13 ASCUS R/O LG PHAN; 04/14 SABA I Gross Description: ? Received in formalin labelled Le and endocervix is a small aggregate of lópez-brown soft tissue fragments which measure 0.3 x 0.3 x 0.3 cm. It is submitted intact in one cassette. ??(Domonique Girard)/[facility] End of Report NICO JOHN 09/29/2001 10/03/2001 10: 28 EDT Shaila Martinez MD PATHOLOGY ORDERABLES NICO JOHN [address] [place] [address] * CYTOPATHOLOGY (09/29/2001 0:00 EDT) Pathology Report: CYTOPATHOLOGY REPORT Reports generated via electronic interface contain original data; however they are lacking the format of the original report. Caution should be taken when reading/interpreti ng unformatted reports. Name: ? BLANCA LOPEZ ? Accession #: ? [id number] : ? 1955 (Age: 45) ??F ?Collect Date: ? 09/29/2001 Location: ? [facility] ? Receive Date: ? 10/03/2001 Provider: ?SHAILA MARTINEZ MD Copy to: ? Specimen/Source: ?ThinPrep Pap Test, Cervix/Endocervix Last Menstrual Period: ? Other: ? HPVDX - HPV testing requested regardless of diagnosis on current ThinPrep Pap test. ? SPECIMEN ADEQUACY ? Satisfactory for Evaluation - transformation zone component present GENERAL CATEGORIZATION ? Epithelial Cell Abnormality INTERPRETATION ? Squamous Cell Abnormality - Atypical squamous cells, undetermined significance. EDUCATIONAL NOTES/RECOMMENDATI ONS ? Recommend clinical correlation and further evaluation, as clinically indicated. ? Document reviewed and electronically signed by: ? WARNER MORIN MD ? Report Date: ??10/12/2001 14:02 End of Report NICO JOHN 09/29/2001 10/03/2001 Shaila Martinez MD PATHOLOGY ORDERABLES NICO JOHN [address] [place] [address] documented in this encounter Visit Diagnoses Not on filedocumented in this encounter
--- OUTSIDE RECORDS SUMMARY | 2024-01-26 03:11 | XMS_ITS | Encounter Summary ---
Author Organization [facility] Address [address] [place] [address] Care Team Providers Care Bottom Cager Name Role Phone Shruthi Arrington MD Primary Care Provider [phone] Encounter Details Date Type Department Care Team (Late st Contact Info) Description 11/18/2015 Documentation Visit [address] [phone] Julia Rg, [address], [address] [place] [phone] Social History Tobacco Use Types Packs/Day Years Used Date Smoking Tobacco: Never Assessed Sex and Gender Information Value Date Recorded Sex Assigned at Not on file Gender Identity Not on file Sexual Orientation Not on file documented as of this encounter Plan of Treatment Not on file documented as of this encounter Visit Diagnoses Not on filedocumented in this encounter Care Teams Bottom Cager Relationship Specialty Start Date End Date Shruthi Arrington MD [address] [place] [address] PCP - General 09/16/15 documented as of this encounter
--- OUTSIDE RECORDS SUMMARY | 2024-01-26 03:11 | XMS_ITS | Encounter Summary ---
Author Organization [facility] Address [address] [place] [address] Care Team Providers Care Propeller Tester Name Role Phone Shruthi Arrington MD Primary Care Provider Encounter Details Date Type Department Care Team (Late st Contact Info) Description 10/02/2015 9:06 EDT - 10/11/2015 15:00 EDT Hospital Encounter [address] [address] [address] [phone] Discharge Disposition: Home or Self Care Social [...] 3 times daily as needed for Pain. cloNIDine HCl (CATAPRES) 0.1 mg tablet Take 0.1 mg by mouth 4 times daily as needed. 10/16/2015 cyclobenzaprine (FLEXERIL) 10 mg tablet Take 10 mg by mouth 3 times daily as needed for Muscle Spasms. 10/16/2015 gabapentin (NEURONTIN) 100 mg capsule One cap po q4h prn muscle spasm or nerve pain 60 Cap 0 10/11/2015 11/13/2015 methylphenidate 27 mg CR tabletIndications:early afternoon Take 27 mg by mouth daily. 10/16/2015 methylphenidate 36 mg CR tablet Take 36 mg by mouth every morning. 10/16/2015 venlafaxine (EFFEXOR) 75 mg tablet Take 37.5 mg by mouth 3 times daily. 75mg in AM, 37.5mg in PM 10/16/2015 documented as of this encounter Discharge Disposition Disposition Code Departure Means Destination Home or Self Custodial documented in this encounter Plan of Treatment Not on file documented as of this encounter Visit Diagnoses Not on filedocumented in this encounter Care Teams Propeller Tester Relationship Specialty Start Date End Date Shruthi Arrington MD [address] [place] [address] PCP - General 09/16/15 documented as of this encounter
--- OUTSIDE RECORDS SUMMARY | 2024-01-26 03:11 | XMS_ITS | Encounter Summary ---
Author Organization [facility] Address [address] [place] [address] Care Team Providers Care Kitchen Cleaner Name Role Phone Shruthi Arrington MD Primary Care Provider [phone] Reason for Visit * Reason Onset Date Comments Other 11/15/2015 Encounter Details Date Type Department Care Team (Late st Contact Info) Description 11/15/[address] [phone] Julia Rg, [address], [facility] [address] [place] [phone] Other Social History Tobacco Use Types Packs/Day Years Used Date Smoking Tobacco: Never Assessed Sex and Gender Information Value Date Recorded Sex Assigned at Not on file Gender Identity Not on file Sexual Orientation Not on file documented as of this encounter Plan of Treatment Not on file documented as of this encounter Visit Diagnoses Not on filedocumented in this encounter Care Teams Kitchen Cleaner Relationship Specialty Start Date End Date Shruthi Arrington MD [address] [place] [address] PCP - General 09/16/15 documented as of this encounter
--- OUTSIDE RECORDS SUMMARY | 2024-01-26 03:11 | XMS_ITS | Encounter Summary ---
Author Organization [facility] Address [address] [place] [address] Care Team Providers Care Marketing Technology Coordinator Name Role Phone Shruthi Arrington MD Primary Care Provider [phone] Encounter Details Date Type Department Care Team (Late st Contact Info) Description 12/13/2015 Documentation Visit [facility] [place] [facility] [place] [address] [place] [address] Calli Louis, [address] [address] Social History Tobacco Use Types [...] on filedocumented in this encounter Care Teams Marketing Technology Coordinator Relationship Specialty Start Date End Date Shruthi Arrington MD [address] [place] [address] PCP - General 09/16/15 documented as of this encounter
--- OUTSIDE RECORDS SUMMARY | 2024-01-26 03:11 | XMS_ITS | Encounter Summary ---
Author Organization [facility] Address [address] [place] [address] Care Team Providers Care Hogshead Cooper Name Role Phone Shruthi Arrington MD Primary Care Provider [phone] Encounter Details Date Type Department Care Team (Late st Contact Info) Description 10/17/2015 Documentation Visit [facility] [place] [address] [place] [address] Calli Louis, [address] [address] Social History Tobacco Use Types [...] on filedocumented in this encounter Care Teams Hogshead Cooper Relationship Specialty Start Date End Date Shruthi Arrington MD [address] [place] [address] PCP - General 09/16/15 documented as of this encounter
--- OUTSIDE RECORDS SUMMARY | 2024-01-26 03:11 | XMS_ITS | Encounter Summary ---
Author Organization [facility] Address [address] [place] [address] Care Team Providers Care Editorial Intern Name Role Phone Shruthi Arrington MD Primary Care Provider Encounter Details Date Type Department Care Team (Late st Contact Info) Description 11/08/2015 Documentation Visit [facility] [place] [address] [place] [address] Calli Louis, [address] [address] Social History Tobacco Use Types [...] on filedocumented in this encounter Care Teams Editorial Intern Relationship Specialty Start Date End Date Shruthi Arrington MD [address] [place] [address] PCP - General 09/16/15 documented as of this encounter
--- OUTSIDE RECORDS SUMMARY | 2024-01-26 03:11 | XMS_ITS | Encounter Summary ---
Author Organization [facility] Address [address] [place] [address] Care Team Providers Care Pharmaceutical Engineer Name Role Phone Shruthi Arrington MD Primary Care Provider [phone] Encounter Details Date Type Department Care Team (Late st Contact Info) Description 11/21/2015 Documentation Visit [facility] [place] [facility] [address] [place] [address] [place] [address] Calli Louis, [address] [address] Social History Tobacco Use Types [...] on filedocumented in this encounter Care Teams Pharmaceutical Engineer Relationship Specialty Start Date End Date Shruthi Arrington MD [address] [place] [address] PCP - General 09/16/15 documented as of this encounter
--- OUTSIDE RECORDS SUMMARY | 2024-01-26 03:11 | XMS_ITS | Encounter Summary ---
Author Organization [facility] Address [address] [place] [address] Care Team Providers Care Iron Worker Apprentice Name Role Phone Shruthi Arrington MD Primary Care Provider [phone] Reason for Visit * Reason Onset Date Comments Follow-up 11/29/2015 Encounter Details Date Type Department Care Team ([facility] st Contact Info) Description 11/29/2015 Telephone [facility] [place] [facility] [place] [address] [place], [place] [address] Calli Louis, [address] [phone] Follow-up Social History Tobacco Use Types Packs/Day Years Used Date Smoking Tobacco: Never Assessed Sex and Gender Information Value Date Recorded Sex Assigned at Not on file Gender Identity Not on file Sexual Orientation Not on file documented as of this encounter Plan of Treatment Not on file documented as of this encounter Visit Diagnoses Not on filedocumented in this encounter Care Teams Iron Worker Apprentice Relationship Specialty Start Date End Date Shruthi Arrington MD [address] [place] [address] PCP - General 09/16/15 documented as of this encounter
--- OUTSIDE RECORDS SUMMARY | 2024-01-26 03:11 | XMS_ITS | Encounter Summary ---
Author Organization [facility] Address [address] [place] [address] Care Team Providers Care International Specialist Name Role Phone Shruthi Arrington MD Primary Care Provider [phone] Reason for Visit * Reason Comments Post Traumatic Stress Disorder Encounter Details Date Type Department Care Team (Late st Contact Info) Description 11/07/2015 9:30 EDT Office Visit [address] [place] [address] PTSD (post-traumatic stress disorder) (Primary Dx) [...] disorder documented in this encounter Care Teams International Specialist Relationship Specialty Start Date End Date Shruthi Arrington MD [address] [place] [address] PCP - General 09/16/15 documented as of this encounter
--- OUTSIDE RECORDS SUMMARY | 2024-01-26 03:11 | XMS_ITS | Encounter Summary ---
Author Organization [facility] Address [address] [place] [address] Care Team Providers Care Food Service Worker Hospital Name Role Phone Shruthi Arrington MD Primary Care Provider [phone] Reason for Visit * Reason Onset Date Comments Other 10/04/2015 Encounter Details Date Type Department Care Team (Late st Contact Info) Description 10/04/[address] [phone] Julia Rg, [address] [place] [phone] Other Social History Tobacco Use Types Packs/Day Years Used Date Smoking Tobacco: Never Assessed Sex and Gender Information Value Date Recorded Sex Assigned at Not on file Gender Identity Not on file Sexual Orientation Not on file documented as of this encounter Plan of Treatment Not on file documented as of this encounter Visit Diagnoses Not on filedocumented in this encounter Care Teams Food Service Worker Hospital Relationship Specialty Start Date End Date Shruthi Arrington MD [address] [place] [address] PCP - General 09/16/15 documented as of this encounter
--- OUTSIDE RECORDS SUMMARY | 2024-01-26 03:11 | XMS_ITS | Encounter Summary ---
Author Organization [facility] Address [address] [place] [address] Care Team Providers Care Pinion Polisher Name Role Phone Shruthi Arrington MD Primary Care Provider [phone] Encounter Details Date Type Department Care Team (Late st Contact Info) Description 10/14/2015 12:23 EDT - 11/12/2015 15:00 EDT Hospital Encounter [address] [phone] Discharge Disposition: Home or Self Care Social [...] Tab by mouth every morning. 10/16/2015 11/27/2015 gabapentin (NEURONTIN) 100 mg capsule One cap po q4h prn muscle spasm or nerve pain 60 Cap 0 10/11/2015 11/13/2015 gabapentin (NEURONTIN) 300 mg capsule Take 1 Cap by mouth 3 times daily for 30 days. 90 Cap 0 10/23/2015 11/13/2015 methylphenidate 36 mg CR tablet Take 1 Tab by mouth every morning for 30 days. Daily Max: 36 mg 30 Tab 0 10/16/2015 11/13/2015 sertraline (ZOLOFT) 50 mg tablet Take 1 Tab by mouth daily for 30 days. 30 Tab 0 10/16/2015 11/13/2015 documented as of this encounter Discharge Disposition Disposition Code Departure Means Destination Home or Self Residential documented in this encounter Plan of Treatment Not on file documented as of this encounter Visit Diagnoses Not on filedocumented in this encounter Care Teams Pinion Polisher Relationship Specialty Start Date End Date Shruthi Arrington MD [address] [place] [address] PCP - General 09/16/15 documented as of this encounter
--- OUTSIDE RECORDS SUMMARY | 2024-01-26 03:11 | XMS_ITS | Encounter Summary ---
Author Organization [facility] Address [address] [place] [address] Care Team Providers Care Pipe Maker Name Role Phone Shruthi Arrington MD Primary Care Provider [phone] Encounter Details Date Type Department Care Team (Late st Contact Info) Description 08/02/2020 Lab Requisition [facility] Pathology & Laboratory Medicine - [address] [address] Hina Johnson [address] [place], [place] [id number] Encounter for other general examination Social History [...] Procedure Name Priority Date/Time Associated Diagnosis Comments PAP TEST Today 08/01/2020 11:45 EST Encounter for other general examination documented in this encounter Results * PAP TEST (08/01/2020 11:45 EST) Specimens A. Cervix and/or Endocervix , ThinPrep Imaging System with Manual Evaluation 08/08/2020 12:47 EST [facility] Specimen Adequacy Satisfactory for Evaluation - transformation zone component present Scant due to excessive inflammation 08/08/2020 12:47 EST [facility] General Categorization Negative for intraepithelial lesion or malignancy 08/08/2020 12:47 EST [facility] Attestation . 08/08/2020 12:47 EST [facility] at 1246 Clinical History See below 08/08/19 12:47 EST [facility] Performing Lab [facility] 08/08/2020 12:47 EST [facility] Scanned Images 08/08/2020 12:47 EST [facility] Papanicolaou smear specimen (specimen) CERVIX UTERI STRUCTURE / Unknown 08/01/2020 11:45 EST 08/02/2020 14:48 EST Hina Johnson PATHOLOGY ORDERABLE S [facility] [address] [place] [address] documented in this encounter Visit Diagnoses Diagnosis Encounter for other general examination documented in this encounter Care Teams Pipe Maker Relationship Specialty Start Date End Date Shruthi Arrington MD [address] [place] [address] PCP - General 09/16/15 documented as of this encounter
--- OUTSIDE RECORDS SUMMARY | 2024-01-26 03:11 | XMS_ITS | Encounter Summary ---
Author Organization [facility] Address [address] [place] [address] Care Team Providers Care Radar Repairer Name Role Phone Shruthi Arrington MD Primary Care Provider [phone] Reason for Visit * Reason Comments Anxiety Encounter Details Date Type Department Care Team (Late st Contact Info) Description 10/07/2015 10:30 EDT Office Visit [facility] [place] - [address] [address] PTSD (post-traumatic stress disorder) (Primary [...] disorder documented in this encounter Care Teams Radar Repairer Relationship Specialty Start Date End Date Shruthi Arrington MD [address] [place] [address] PCP - General 09/16/15 documented as of this encounter
--- OUTSIDE RECORDS SUMMARY | 2024-01-26 03:11 | XMS_ITS | Encounter Summary ---
Author Organization [facility] Address [address] [place] [address] Care Team Providers Care Coffee Maker Servicer Name Role Phone Unavailable Primary Care Provider Unavailabl e Encounter Details Date Type Department Care Team (Late st Contact Info) Description 03/06/[address] [facility] - [place] [address] [place] [address] Gisell Choudhary, MEDICAL INTERPRETER [facility] [address] [place] [address] Social History Tobacco Use Types [...] Priority Date/Time Associated Diagnosis Comments CYTOPATHOLOGY Routine 03/06/2003 0:00 EDT documented in this encounter Results * CYTOPATHOLOGY (03/06/2003 0:00 EDT) Pathology Report: CYTOPATHOLOGY REPORT Reports generated via electronic interface contain original data; however they are lacking the format of the original report. Caution should be taken when reading/interpreti ng unformatted reports. Name: ? BLANCA LOPEZ ? Accession #: ? [id number] : ? 1955 (Age: 47) ??F ?Collect Date: ? 03/06/2003 Location: ? [facility] ? Receive Date: ? 03/08/2003 Provider: ?GISELL CHOUDHARY MEDICAL INTERPRETER Copy to: ? Specimen/Source: ?ThinPrep Pap Test, Cervix/Endocervix Last Menstrual Period: ? 02/10/03 ? SPECIMEN ADEQUACY ? Satisfactory for Evaluation - transformation zone component present GENERAL CATEGORIZATION ? Negative for Intraepithelial Lesion or Malignancy ? Document reviewed and electronically signed by: ? TISH Hurst(ASCP) ? Report Date: ??03/12/2003 13:46 End of Report NICO JOHN 03/06/2003 03/08/2003 Gisell Choudhary NP PATHOLOGY ORDERABLES NICO JOHN [address] [place] [address] documented in this encounter Visit Diagnoses Not on filedocumented in this encounter
--- OUTSIDE RECORDS SUMMARY | 2024-01-26 03:11 | XMS_ITS | Encounter Summary ---
Author Organization [facility] Address [address] [place] [address] Care Team Providers Care Material Handler Name Role Phone Shruthi Arrington MD Primary Care Provider [phone] Encounter Details Date Type Department Care Team (Late st Contact Info) Description 12/04/2015 Documentation Visit [facility] [place] - [address] [place] [address] [place] [address] Calli Louis, [address] [address] Social History Tobacco Use Types [...] filedocumented in this encounter Care Teams Material Handler Relationship Specialty Start Date End Date Shruthi Arrington MD [address] [place] [address] PCP - General 09/16/15 documented as of this encounter
--- OUTSIDE RECORDS SUMMARY | 2024-01-26 03:11 | XMS_ITS | Encounter Summary ---
Author Organization [facility] Address [address] [place] [address] Care Team Providers Care Licensed Land Surveyor Name Role Phone Shruthi Arrington MD Primary Care Provider [phone] Reason for Visit * Reason Comments Anxiety Encounter Details Date Type Department Care Team (Late st Contact Info) Description 10/11/2015 10:30 EDT Office Visit [facility] - [address] [address] PTSD (post-traumatic stress disorder) (Primary [...] nerve pain 60 Cap 0 10/11/2015 11/13/2015 documented in this encounter Plan of Treatment Not on file documented as of this encounter Visit Diagnoses Diagnosis PTSD (post-traumatic stress disorder)- Primary Posttraumatic stress disorder documented in this encounter Care Teams Licensed Land Surveyor Relationship Specialty Start Date End Date Shruthi Arrington MD [address] [place] [address] PCP - General 09/16/15 documented as of this encounter
--- OUTSIDE RECORDS SUMMARY | 2024-01-26 03:11 | XMS_ITS | Encounter Summary ---
Author Organization [facility] Address [address] [place] [address] Care Team Providers Care Health Education Director Name Role Phone Unknown, Provider Primary Care Provider [phone] Encounter Details Date Type Department Care Team (Late st Contact Info) Description 03/12/2014 Results Only [facility] - [facility] ([facility] [address] [place], [place] [id number] Gisell Choudhary, CHANELL [facility] [address] [place], [place] [address] Social History Tobacco Use Types Packs/Day Years Used Date Smoking Tobacco: Never Assessed Sex and Gender Information Value Date Recorded Sex Assigned at Not on file Gender Identity Not on file Sexual Orientation Not on file documented as of this encounter Plan of Treatment Not on file documented as of this encounter Procedures Procedure Name Priority Date/Time Associated Diagnosis Comments PAP TEST- RESULT ONLY Routine 03/12/2014 0:00 EDT documented in this encounter Results * PAP TEST- RESULT ONLY (03/12/2014 0:00 EDT) Pathology Report: CYTOPATHOLOGY REPORT Reports generated via electronic interface contain original data; however they are lacking the format of the original report. Caution should be taken when reading/interpreti ng unformatted reports. Name: ? BLANCA LOPEZ ? Accession #: ? [id number] : ? 1955 (Age: 58) ??F ?Collect Date: ? 03/12/2014 Location: ? [facility] ? Receive Date: ? 03/14/2014 Provider: ?GISELL CHOUDHARY BREAKDOWN MAN Copy to: ? Specimen/Source: ?Pap Test, Cervix/Endocervix, ThinPrep Imaging System with manual evaluation Last Menstrual Period: ? 12 yrs ago Previous Gynecologic Pathology: ? Yes: 1 Pap abn cells svl yrs ago, normal Pap since ? SPECIMEN ADEQUACY ? Satisfactory for Evaluation - transformation zone component present GENERAL CATEGORIZATION ? Negative for Intraepithelial Lesion or Malignancy INTERPRETATION ? Shift in vinnie present suggestive of bacterial vaginosis. ? Document reviewed and electronically signed by: ? MÓNICA Jack(ASCP) ? Report Date: ??03/20/2014 15:54 End of Report NICO JOHN 03/12/2014 03/14/2014 Gisell Choudhary BREAKDOWN MAN PATHOLOGY ORDERABLES Performing Organization Address City/State/[facility] Co de Phone Number NICO JOHN [address] [place] [address] documented in this encounter Visit Diagnoses Not on filedocumented in this encounter Care Teams Health Education Director Relationship Specialty Start Date End Date Unknown, Provider, PCP - General 01/10/10 09/15/15 documented as of this encounter
--- OUTSIDE RECORDS SUMMARY | 2024-01-26 03:11 | XMS_ITS | Encounter Summary ---
Author Organization [facility] Address [address] [place] [address] Care Team Providers Care Dance Historian Name Role Phone Shruthi Arrington MD Primary Care Provider [phone] Reason for Visit * Reason Comments Anxiety Encounter Details Date Type Department Care Team ([facility] st Contact Info) Description 10/16/2015 11:00 EDT Office Visit [facility] [place] - [address] [address] [address] [facility] [address] [address] PTSD (post-traumatic stress disorder) (Primary Dx) Social History Tobacco Use Types Packs/Day Years Used Date Smoking Tobacco: Never Assessed Sex and Gender Information Value Date Recorded Sex Assigned at Not on file Gender Identity Not on file Sexual Orientation Not on file documented as of this encounter Patient Instructions * Patient Instructions* Robby Rm MD - 10/16/2015 11:28 EDT Stop taking venlafaxine Start taking sertraline 50mg (start today) - called in to [facility] [place] Continue clonidine 0.1mg in the AM, your provider may change this medication at your next visit Continue taking concerta 36mg (refill rx is attached) Refrain from taking flexeril (cyclobenzaprine) You may take gabapentin 1-3 caps at a time, 3-4 times per day. We will refill this medication at a higher dose when you run out of your current prescription Your next visit will be on Wednesday, May 10th with Kate Bray documented in this encounter Ordered Prescriptions Prescription Sig Dispensed Refills Start Date End Da te sertraline (ZOLOFT) 50 mg tablet Take 1 Tab by mouth daily for 30 days. 30 Tab 0 10/16/2015 11/13/2015 methylphenidate 36 mg CR tablet Take 1 Tab by mouth every morning for 30 days. Daily Max: 36 mg 30 Tab 0 10/16/2015 11/13/2015 documented in this encounter Plan of Treatment Not on file documented as of this encounter Visit Diagnoses Diagnosis PTSD (post-traumatic stress disorder)- Primary Posttraumatic stress disorder documented in this encounter Discontinued Medications Medication Sig Discontinue Reason Start Date End Da te venlafaxine (EFFEXOR) 75 mg tablet Take 37.5 mg by mouth 3 times daily. 75mg in AM, 37.5mg in PM 10/16/2015 methylphenidate 27 mg CR tabletIndications:early afternoon Take 27 mg by mouth daily. 10/16/2015 cyclobenzaprine (FLEXERIL) 10 mg tablet Take 10 mg by mouth 3 times daily as needed for Muscle Spasms. 10/16/2015 cloNIDine HCl (CATAPRES) 0.1 mg tablet Take 0.1 mg by mouth 4 times daily as needed. Order modification 10/16/2015 methylphenidate 36 mg CR tablet Take 36 mg by mouth every morning. Reorder 10/16/2015 documented as of this encounter Historical Medications * This list may reflect changes made after this encounter. Medication Sig Dispensed Refills Start Date End Date cloNIDine HCl (CATAPRES) 0.1 mg tablet Take 1 Tab by mouth every morning. 10/16/2015 11/27/2015 added in this encounter Care Teams Dance Historian Relationship Specialty Start Date End Date Shruthi Arrington MD [address] [place] [address] PCP - General 09/16/15 documented as of this encounter
--- OUTSIDE RECORDS SUMMARY | 2024-01-26 03:11 | XMS_ITS | Encounter Summary ---
Author Organization [facility] Address [address] [place] [address] Care Team Providers Care Major League Baseball Player Name Role Phone Unavailable Primary Care Provider Unavailabl e Encounter Details Date Type Department Care Team (Late st Contact Info) Description 02/24/2001 16:20 EDT Hospital Encounter [facility] - Other [address] [place] [address] [place] [address] [place] [address],[address] [place] [address] Unknown, Provider, Social History Tobacco Use Types Packs/Day Years [...]
--- OUTSIDE RECORDS SUMMARY | 2024-01-26 03:11 | XMS_ITS | Encounter Summary ---
Author Organization [facility] Address [address] [place] [address] Care Team Providers Care Brick Molder Hand Name Role Phone Shruthi Arrington MD Primary Care Provider [phone] Encounter Details Date Type Department Care Team (Late st Contact Info) Description 11/06/2015 Documentation Visit [facility] [address] [place] [address] [place] [address] Calli Louis, [address] [address] Social History Tobacco Use Types [...] filedocumented in this encounter Care Teams Brick Molder Hand Relationship Specialty Start Date End Date Shruthi Arrington MD [address] [place] [address] PCP - General 09/16/15 documented as of this encounter
--- OUTSIDE RECORDS SUMMARY | 2024-01-26 03:11 | XMS_ITS | Encounter Summary ---
Author Organization [facility] Address [address] [place] [address] Care Team Providers Care Automotive Internet Sales Consultant Name Role Phone Shruthi Arrington MD Primary Care Provider [phone] Reason for Visit * Reason Onset Date Comments Other 11/19/2015 Encounter Details Date Type Department Care Team (Late st Contact Info) Description 11/19/[address] [id number] Julia Rg, [address], [facility] [address] [place] [phone] Other Social History Tobacco Use Types Packs/Day Years Used Date Smoking Tobacco: Never Assessed Sex and Gender Information Value Date Recorded Sex Assigned at Not on file Gender Identity Not on file Sexual Orientation Not on file documented as of this encounter Plan of Treatment Not on file documented as of this encounter Visit Diagnoses Not on filedocumented in this encounter Care Teams Automotive Internet Sales Consultant Relationship Specialty Start Date End Date Shruthi Arrington MD [address] [place] [address] PCP - General 09/16/15 documented as of this encounter
--- OUTSIDE RECORDS SUMMARY | 2024-01-26 03:11 | XMS_ITS | Encounter Summary ---
Author Organization [facility] Address [address] [place] [address] Care Team Providers Care Paramedic Rn Name Role Phone Unavailable Primary Care Provider Unavailabl e Encounter Details Date Type Department Care Team (Late st Contact Info) Description 01/07/[address] [facility] - [facility] ([facility]) [address] [place], [place] [address] Robby Alexis, DO [address] [facility] [address] [place] [address] Social History Tobacco Use Types [...] Priority Date/Time Associated Diagnosis Comments SURGICAL PATHOLOGY Routine 01/07/2010 0:00 EDT documented in this encounter Results * SURGICAL PATHOLOGY (01/07/2010 0:00 EDT) Pathology Report: SURGICAL PATHOLOGY REPORT ? Reports generated via electronic interface contain original data; ? however they are lacking the format of the original report. ? Caution should be taken when reading/interpreti ng unformatted reports. ? Name: ? JOHN, DYLAN ? Accession #: ? [id number] ? : ? 1955 (Age: 54) ??F ? Collect Date: ? 01/07/2010 ? Location: ? [facility] ? Receive Date: ? 01/09/2010 ? Provider: ROBBY ALEXIS DO ? Copy to: SHARYN JANG MD ? Final Pathologic Diagnosis: ? A. ?Skin and subcutaneous tissue of anus, left lateral, excision: ? 1. ?Consistent with hemorrhoids. ? B. ?Skin and subcutaneous tissue of anus, right anterior, excision: ? 1. ?Consistent with hemorrhoids. ? C. ?Skin and subcutaneous tissue of anus, right posterior, excision: ? 1. ?Consistent with hemorrhoids. ? Document reviewed and electronically signed by: ? Radha Brock MD ? Report ??Date: 01/10/2010 16:16 ? By the signature above, the attending physician certifies that he/she has ? personally conducted a gross and/or microscopic examination of the described ? specimens and rendered or confirmed the above diagnosis. ? Specimen(s) Received: ? A. ?Left lateral hemorrhoid (#1) ? B. ? Right anterior hemorrhoid (#2) ? C. ? Right posterior hemorrhoid (#3) ? Clinical History: ? Hemorrhoidal skin tags ? Gross Description: ? Received in formalin labelled Dylan Lujan and left lateral ? hemorrhoid is a 2.1 x 2.0 x 0.9 cm piece of tissue largely surfaced by ? araiza-purple wrinkled skin. ??The resection margin is inked black and the specimen is sectioned to reveal a light lópez cut surface with small caliber vessels ? throughout. ??Log Marker sections are submitted in (A). ? Received in formalin labelled Dylan Lujan and right anterior hemorrhoid is a 1.9 x 0.9 x 0.8 cm piece of tissue largely surfaced by araiza-lópez wrinkled ?? skin. ??The resection margin is inked black and the specimen is serially ? sectioned to reveal a light lópez cut surface with focal slightly dilated vessels. Log Marker sections are submitted in (B). ? Received in formalin labelled John, Dylan and right posterior hemorrhoid is a 2.1 x 0.7 x 0.7 cm piece of tissue largely surfaced by focally araiza-lópez and focally lópez-purple wrinkled skin. ??The resection margin is inked black and the ?? specimen is serially sectioned to reveal a light lópez cut surface with a moderate amount of focally dilated vessels. ??The specimen is entirely submitted in (C). ?? (Love Krueger)/sharlene ? End of Report ? [facility] 01/07/2010 01/09/2010 8:4 2 EDT Robby Alexis DO PATHOLOGY ORDER NUNU [facility] [address] [place] [address] documented in this encounter Visit Diagnoses Not on filedocumented in this encounter
[2024-01-26 10:47] LABS: Abs Immature Grans 0.05 10^3/uL (0.0-0.06); Absolute Basophil Count 0.04 10^3/uL (0.0-0.2); Absolute Eosinophil Count 0.18 10^3/uL (0.0-0.7); Absolute Lymphocyte Count 1.61 10^3/uL (1.2-3.4); Absolute Monocyte Count 0.44 10^3/uL (0.1-0.8); Absolute Neutrophil Count 3.47 10^3/uL (1.2-6.7); Basophils % 0.7 %; Eosinophils % 3.1 %; HCT 45.4 % (36.0-46.0); HGB 15.2 g/dL (11.2-15.7); Immature Grans % 0.9 %; Lymphocytes % 27.8 %; MCH 29.3 pg (27.0-33.0); MCHC 33.5 % (32.0-36.0); MCV 88 fL (80-95); MPV 9.4 fL (8.0-11.0); Monocytes % 7.6 %; Neutrophils % 59.9 %; Platelet Count 193 10^3/uL (130-400); RBC 5.19 10^6/uL (3.93-5.22); RDW 12.4 % (11.7-14.6); RDW-SD 39.8 fL; WBC 5.79 10^3/uL (4.4-10.8)
[2024-01-26 11:19] LABS: ALT 67 U/L (14-59); AST 31 U/L (15-37); Albumin 3.8 g/dL (3.4-5.0); Alkaline Phosphatase 82 U/L (46-116); Anion Gap 9.1 mmol/L (3-11); BUN 20 mg/dL (7-18); Bilirubin, Total 0.42 mg/dL (0.2-1.0); CO2 25.9 mmol/L (21.0-32.0); CREATININE 0.9 mg/dL (0.55-1.02); Calcium 8.9 mg/dL (8.5-10.1); Chloride 106 mmol/L (98-107); Estimated GFR 70.51 (mL/min/1.73m2); Glucose 179 mg/dL (74-106); Potassium 4.2 mmol/L (3.5-5.1); Sodium 141 mmol/L (136-145); Total Protein 7.5 g/dL (6.4-8.2)
[2024-01-26 18:31] LABS: CEA 1.8 ng/mL (See Note)
== END 2024-01-26 03:06 | disposition home or self-care (01) ==
LOC: LBO 03:05
PROVIDERS: PCP Family Medicine; Visit Provider Internal Medicine Hematology & Oncology
DX: C18.1 Malignant neoplasm of appendix (principal)
CPT/HCPCS: 36415; 80053; 82378; 85025

== ENCOUNTER 2024-04-18 01:04 | Outpatient (CLI) | payer MEDICARE, MEDICAID, SELFPAY ==
[2024-04-18] MEDS: Barium Sulfate 2% W/V-Creamy Vanilla Smoothie 450 ML BTL PO ×2 (11:07→11:08)
[2024-04-18 11:45] LABS: Abs Immature Grans 0.07 10^3/uL (0.0-0.06); Absolute Basophil Count 0.05 10^3/uL (0.0-0.2); Absolute Eosinophil Count 0.12 10^3/uL (0.0-0.7); Absolute Monocyte Count 0.51 10^3/uL (0.1-0.8); Absolute Neutrophil Count 3.55 10^3/uL (1.2-6.7); Basophils % 0.8 %; Eosinophils % 1.9 %; HCT 44.5 % (36.0-46.0); HGB 15.1 g/dL (11.2-15.7); Immature Grans % 1.1 %; Lymphocytes % 31.7 %; MCH 29.6 pg (27.0-33.0); MCHC 33.9 % (32.0-36.0); MCV 87 fL (80-95); MPV 9.3 fL (8.0-11.0); Monocytes % 8.1 %; Neutrophils % 56.4 %; Platelet Count 187 10^3/uL (130-400); RDW 12.2 % (11.7-14.6); RDW-SD 39.1 fL
[2024-04-18 12:05] LABS: ALT 60 U/L (14-59); AST 26 U/L (15-37); Albumin 4.2 g/dL (3.4-5.0); Alkaline Phosphatase 77 U/L (46-116); Anion Gap 9.8 mmol/L (3-11); BUN 20 mg/dL (7-18); CO2 29.2 mmol/L (21.0-32.0); Calcium 9.5 mg/dL (8.5-10.1); Chloride 102 mmol/L (98-107); Estimated GFR 62.13 (mL/min/1.73m2); Glucose 145 mg/dL (74-106); Potassium 4.1 mmol/L (3.5-5.1); Sodium 141 mmol/L (136-145)
[2024-04-18] MEDS: Omnipaque 350 MG/ML 100 ML BTL IJ (13:51)
[2024-04-18] MEDS: Normal Saline - Diluent 50 ML VIAL IJ (13:52)
--- NOTE | 2024-04-18 14:00 | DI.CT_ITS ---
Exam(s) CT CHEST/ABD/PEL W EXAM: CT CHEST/ABD/PEL W CLINICAL HISTORY: Primary adenocarcinoma of ascending colon, C18.2, surveillance s/p chemo. TECHNIQUE: Imaging Protocol: Axial computed tomography images with coronal and sagittal reformatted images were created and reviewed. Computer aided detection (CAD) was utilized. CONTRAST MATERIAL: Intravenous: Omnipaque 350 Contrast volume:100 ml Oral: yes / COMPARISON: CT CT ABDOMEN PELVIS W from 10/09/[address] ABDOMEN PELVIS W from 02/19/2023 MR MR ABDOMEN WO/W from 04/29/2023 FINDINGS: CHEST: Tracheobronchial tree: Patent. Pulmonary parenchyma: No consolidation or dominant measurable mass. 3 millimeter nodule anterior righ t upper lobe, likely benign. Pleura: No effusion or pneumothorax. Mediastinum: Within normal limits. Aorta: Thoracic portion non-dilated. Pulmonary arteries: No visible emboli. Heart: No pericardial effusion. Bones: Unremarkable for age. No lytic or blastic lesions.No compression fractures. Soft tissues: Unremarkable. ABDOMEN and PELVIS: Liver: Severe hepatic steatosis. Previously noted curvilinear area focal fat is less visible on today 's exam due to worsening of hepatic steatosis. No measurable mass. Gallbladder and biliary tract: No evidence of stones or wall thickening. No biliary dilatation. Pancreas: Normal density, no abnormal calcifications or inflammatory process. Spleen: Normal. Kidneys: Normal size, contour and axis. No radiodense stones. No obstructive uropathy. No suspicious masses seen. Adrenal glands: No masses seen. Aorta: Abdominal portion non-dilated. Lymph nodes: Within normal limits. Soft tissues: Dehiscence of anterior abdominal wall above the level of the umbilicus. Midline surgica l scar noted at this level. Bladder: Unremarkable. Bowel: No obstruction or bowel wall thickening. Status post resection of the ascending colon. Divert iculosis of the lower descending and sigmoid colon. No evidence of diverticulitis. Peritoneal cavity: No ascites. No focal collection. No mesenteric inflammatory response. No free ai r. Bones: Degenerative changes of the spine. Stable small sclerotic focus in the right pubis. Reproductive organs: Enlarged with multiple fibroids. IMPRESSION: Status post resection of the ascending colon. No evidence of metastatic disease in the chest, abdomen or pelvis. RADIATION DOSE DELIVERED: Total DLP DATA REPOSITORY: All CT scans at this facility are submitted to the National Radiology Data Registry (NRDR) Dose Index Registry (DIR) with the [employer] (ACR). RADIATION OPTIMIZATION: All CT scans at this facility use at least one of these dose optimization te chniques: automated exposure control; mA and/or kV adjustment per patient size (includes targeted exa ms where dose is matched to clinical indication); or iterative reconstruction.
[2024-04-18 19:09] LABS: CEA 2.1 ng/mL (See Note)
== END 2024-04-18 01:24 ==
LOC: DI 01:04
PROVIDERS: PCP Family Medicine; Visit Provider Nurse Practitioner Family
DX: C18.2 Malignant neoplasm of ascending colon (principal)
CPT/HCPCS: 74177; 80053; 71260; 82378; 85025; J3490

== ENCOUNTER 2024-10-13 00:41 | Outpatient (CLI) | payer MEDICARE, MEDICAID, SELFPAY ==
[2024-10-13] MEDS: Barium Sulfate 2% W/V-Berry Smoothie 450 ML BTL PO ×2 (08:44→08:45)
[2024-10-13 09:06] LABS: Abs Immature Grans 0.03 10^3/uL (0.0-0.06); Absolute Basophil Count 0.07 10^3/uL (0.0-0.2); Absolute Eosinophil Count 0.21 10^3/uL (0.0-0.7); Absolute Lymphocyte Count 1.62 10^3/uL (1.2-3.4); Absolute Monocyte Count 0.58 10^3/uL (0.1-0.8); Absolute Neutrophil Count 3.73 10^3/uL (1.2-6.7); Basophils % 1.1 %; Eosinophils % 3.4 %; HCT 46.8 % (36.0-46.0); HGB 15.4 g/dL (11.2-15.7); Immature Grans % 0.5 %; MCH 30.3 pg (27.0-33.0); MCHC 32.9 % (32.0-36.0); MCV 92 fL (80-95); MPV 9.6 fL (8.0-11.0); Monocytes % 9.3 %; Neutrophils % 59.7 %; Platelet Count 192 10^3/uL (130-400); RBC 5.09 10^6/uL (3.93-5.22); RDW 12.5 % (11.7-14.6); RDW-SD 42.5 fL; WBC 6.24 10^3/uL (4.4-10.8)
[2024-10-13 09:21] LABS: ALT 33 U/L (14-59); AST 20 U/L (15-37); Alkaline Phosphatase 70 U/L (46-116); Anion Gap 9.2 mmol/L (3-11); BUN 23 mg/dL (7-18); Bilirubin, Total 0.5 mg/dL (0.2-1.0); CO2 27.8 mmol/L (21.0-32.0); CREATININE 0.8 mg/dL (0.55-1.02); Chloride 103 mmol/L (98-107); Estimated GFR 81.21 (mL/min/1.73m2); Glucose 119 mg/dL (74-106); Potassium 4.5 mmol/L (3.5-5.1); Sodium 140 mmol/L (136-145); Total Protein 7.6 g/dL (6.4-8.2)
[2024-10-13] MEDS: Normal Saline - Diluent 50 ML VIAL IJ (10:05)
--- NOTE | 2024-10-13 11:05 | DI.CT_ITS ---
Exam(s) CT CHEST/ABD/PEL W EXAM: CT CHEST/ABD/PEL W CLINICAL HISTORY: ADENOCARCINOMA, APPENDIX C18.1. TECHNIQUE: Imaging Protocol: Axial computed tomography images with coronal and sagittal reformatted images were created and reviewed. Computer aided detection (CAD) was utilized. CONTRAST MATERIAL: Intravenous: Omnipaque 350 Contrast volume:100 ml Oral: yes / COMPARISON: CT CT ABDOMEN PELVIS W from 10/09/[address] ABDOMEN PELVIS W from 02/19/2023 MR MR ABDOMEN WO/W from 04/29/[address] CHEST/ABD/PEL W from 04/18/2024 FINDINGS: CHEST: Pulmonary parenchyma: No consolidation. No dominant measurable mass. Able 3 millimeter nodule righ t right upper lobe. Tracheobronchial tree: No bronchiectasis. No mucous plugging.No bronchial wall thickening. Pleura: No effusion or pneumothorax. Mediastinum: Within normal limits. Pulmonary arteries: No visible emboli. Cardiovascular: No pericardial effusion. Thoracic aorta non-dilated. Bones: Unremarkable for age. No lytic or blastic lesions.No compression fractures. Soft tissues: Unremarkable. ABDOMEN and PELVIS: Liver: mildly decreased density consistent with fatty infiltration which show marked improvement whe n compared with the previous exam. Liver size has also decreased. There is a new area of low attenu ation seen at the inferior anterior right lobe, anterior to the gallbladder, measuring 3 cm. Gallbladder and biliary tract: No evidence of stones or wall thickening. No biliary dilatation. Pancreas: Normal density, no abnormal calcifications or inflammatory process. Spleen: Normal. Kidneys: Normal size, contour and axis. No radiodense stones. No obstructive uropathy. No suspicious masses seen. Adrenal glands: No masses seen. Aorta: Abdominal portion non-dilated. Lymph nodes: Within normal limits. Soft tissues: Midline surgical scar again noted. Dehiscence of the upper anterior abdominal wall ree ear stable. Bladder: Unremarkable. Bowel: Resection of the ascending colon. Anastomosis is unremarkable. Diverticulosis of the descend ing and sigmoid colon.. No obstruction or bowel wall thickening. Peritoneal cavity: No ascites. No focal collection. No mesenteric inflammatory response. No free ai r. Bones: Degenerative changes in the spine. Small sclerotic focus in the right pubis is unchanged. Reproductive organs: Uterine fibroids again noted. Ovaries are unremarkable. IMPRESSION: Chest: Stable 3 millimeter nodule right upper lobe. Abdomen pelvis: New area of decreased attenuation in the anterior liver, near the gallbladder fossa. The findings may represent focal fat. MRI could be considered for further evaluation. The previous exam showed severe fatty infiltration of the liver which shows significant improvement. RADIATION DOSE DELIVERED: 839.43mGy.cm Total DLP DATA REPOSITORY: All CT scans at this facility are submitted to the National Radiology Data Registry (NRDR) Dose Index Registry (DIR) with the [employer] (ACR). RADIATION OPTIMIZATION: All CT scans at this facility use at least one of these dose optimization te chniques: automated exposure control; mA and/or kV adjustment per patient size (includes targeted exa ms where dose is matched to clinical indication); or iterative reconstruction.
[2024-10-13 18:17] LABS: CEA 2.9 ng/mL (See Note)
== END 2024-10-13 01:01 ==
LOC: DI 00:41
PROVIDERS: PCP Family Medicine; Visit Provider Internal Medicine Hematology & Oncology
DX: C18.1 Malignant neoplasm of appendix (principal)
CPT/HCPCS: 74177; 80053; 71260; 82378; 85025

== ENCOUNTER 2024-10-16 15:01 | Outpatient (REF) | payer MEDICARE, MEDICAID, SELFPAY ==
[2024-10-16 16:23] LABS: Cholesterol 221 mg/dL (<200); HDL Cholesterol 43 mg/dL (>or=50); Triglyceride 419 mg/dL (<150)
[2024-10-16 16:39] LABS: LDL CHOLESTEROL 114 mg/dL (<100)
== END 2024-10-16 15:02 | disposition home or self-care (01) ==
LOC: NCHCN 15:01
PROVIDERS: PCP Family Medicine; Visit Provider Nurse Practitioner Family
DX: Z13.220 Encounter for screening for lipoid disorders (principal)
CPT/HCPCS: 80061; 83721

== ENCOUNTER 2025-01-01 17:07 | Outpatient (REF) | payer MEDICARE, MEDICAID, SELFPAY ==
[2025-01-01 18:55] LABS: Calculated LDL 127 mg/dL (<100); Cholesterol 217 mg/dL (<200); HDL Cholesterol 38 mg/dL (>or=50); Triglyceride 264 mg/dL (<150)
[2025-01-01 19:25] LABS: COMMENT (LAB VIEW ONLY) 93.81 mg/dL; Microalb ug/mg Crea 23.2 ug/mg Cr
== END 2025-01-01 17:08 | disposition home or self-care (01) ==
LOC: NCHCN 17:07
PROVIDERS: PCP Family Medicine; Visit Provider Nurse Practitioner Family
DX: E78.5 Hyperlipidemia, unspecified (principal); E11.9 Type 2 diabetes mellitus without complications
CPT/HCPCS: 80061; 82043; 82570

== ENCOUNTER 2025-01-15 03:26 | Outpatient (CLI) | payer MEDICARE, SELFPAY ==
[2025-01-15 07:56] LABS: Abs Immature Grans 0.04 10^3/uL (0.0-0.06); HCT 44.1 % (36.0-46.0); HGB 14.7 g/dL (11.2-15.7); Immature Grans % 0.7 %; MCH 29.7 pg (27.0-33.0); MCHC 33.3 % (32.0-36.0); MCV 89 fL (80-95); MPV 9.5 fL (8.0-11.0); Platelet Count 199 10^3/uL (130-400); RBC 4.95 10^6/uL (3.93-5.22); RDW 12.4 % (11.7-14.6); RDW-SD 40.4 fL; WBC 5.87 10^3/uL (4.4-10.8)
[2025-01-15 08:19] LABS: ALT 33 U/L (14-59); AST 18 U/L (15-37); Albumin 3.9 g/dL (3.4-5.0); Alkaline Phosphatase 71 U/L (46-116); Anion Gap 8.4 mmol/L (3-11); BUN 19 mg/dL (7-18); Bilirubin, Total 0.5 mg/dL (0.2-1.0); CO2 26.6 mmol/L (21.0-32.0); Calcium 8.9 mg/dL (8.5-10.1); Chloride 104 mmol/L (98-107); Estimated GFR 70.07 (mL/min/1.73m2); Glucose 135 mg/dL (74-106); Potassium 4.2 mmol/L (3.5-5.1); Sodium 139 mmol/L (136-145); Total Protein 7.5 g/dL (6.4-8.2)
[2025-01-15 18:15] LABS: CEA 2.3 ng/mL (See Note)
== END 2025-01-15 03:27 | disposition home or self-care (01) ==
LOC: LBO 03:27
PROVIDERS: PCP Family Medicine; Visit Provider Internal Medicine Hematology & Oncology
DX: C18.2 Malignant neoplasm of ascending colon (principal)
CPT/HCPCS: 36415; 80053; 82378; 85025

== ENCOUNTER 2025-01-18 03:02 | Outpatient (CLI) | payer MEDICARE, SELFPAY ==
--- NOTE | 2025-01-18 12:41 | DI.MAMMO_ITS ---
Exam(s) MAMMO SCREENING EXAM: MAMMO SCREENING CLINICAL HISTORY: Screening, Z12.31 TECHNIQUE: Bilateral full field digital CC and MLO mammographic images were obtained with 3D tomosynthesis and utilizing computer aided detection (CAD). COMPARISON: Comparison is made with prior examinations. FINDINGS: Masses/Architectural Distortion: No suspicious masses or areas of architectural distortion are present. Microcalcifications: No suspicious pleomorphic-type are seen. Skin Thickening/Nipple Retraction: None. IMPRESSION: 1. No significant interval change with no specific features of malignancy noted. 2. Unless there is more urgent need, screening mammography is recommended, as per [place] [employer] guidelines. BI-RADS Category 1 - Negative Breast Density - Category B - There are scattered areas of fibroglandular density. Breast density Category C or D implies that the patient has dense breast tissue. Dense breast tissue can make it harder to find cancer on a mammogram. Dense breast tissue is also associated with an increased risk of breast cancer. This information about the result of the mammogram report was provided to the patient to raise their awareness. Use this report when you speak with the patient about their risks for breast cancer, which includes their family history. At that time, you may recommend additional screening tests (Ultrasound or MRI) as these tests may add significant information. A negative radiographic report should not delay biopsy if a dominant or clinically suspicious mass is present. Up to ten percent of cancers are not identified on mammography. A negative report may reinforce clinical impression. Adenosis and dense breasts may obscure an underlying neoplasm. False positive reports average 6 to 10%. Patient will receive a letter notifying them of these results.
== END 2025-01-18 03:22 ==
LOC: DI 03:02
PROVIDERS: PCP Family Medicine; Visit Provider Nurse Practitioner Family
DX: Z12.31 Encounter for screening mammogram for malignant neoplasm of breast (principal); R92.323 Mammographic fibroglandular density, bilateral breasts
CPT/HCPCS: 77063; 77067

== ENCOUNTER 2025-02-20 17:45 | Outpatient (REF) | payer MEDICARE, MEDICAID, SELFPAY ==
[2025-02-20 18:22] LABS: Calculated LDL 59 mg/dL (<100); Cholesterol 157 mg/dL (<200); HDL Cholesterol 39 mg/dL (>or=50); Triglyceride 298 mg/dL (<150)
== END 2025-02-20 17:46 | disposition home or self-care (01) ==
LOC: NCHCN 17:45
PROVIDERS: PCP Family Medicine; Visit Provider Nurse Practitioner Family
DX: E78.2 Mixed hyperlipidemia (principal)
CPT/HCPCS: 80061

== ENCOUNTER 2025-03-20 01:28 | Outpatient (CLI) | payer MEDICARE, MEDICAID, SELFPAY ==
--- NOTE | 2025-03-20 | DI.CT_ITS ---
Exam(s) CT CHEST/ABD/PEL W EXAM: CT CHEST/ABD/PEL W CLINICAL HISTORY: COLON CANCER C18.2 ADENOCARCINOMA APPENDIX C18.1 SUEVEILLANCE TECHNIQUE: Imaging Protocol: Axial computed tomography images with coronal and sagittal reformatted images were created and reviewed. Lung Computer Aided Detection (CAD) was utilized. CONTRAST MATERIAL: Intravenous: Omnipaque 350 contrast volume:100 mL Oral: Yes COMPARISON: CT CT ABDOMEN PELVIS W from 02/19/[address] CHEST/ABD/PEL W from 04/18/[address] CHEST/ABD/PEL W from 10/13/2024 FINDINGS: CHEST: Tracheobronchial tree: Patent where visualized. No evidence of bronchiectasis. Pulmonary parenchyma: There is a stable 3 mm right pulmonary nodule. There are no new pulmonary nodules. There are no pulmonary infiltrates. No architectural distortion. Visualized thyroid gland: Unremarkable. Mediastinum and Jesusita: No dominant adenopathy or fluid collection. The esophagus is unremarkable. Pleura: No effusion or pneumothorax. Heart: The heart is not dilated. Mild coronary artery calcification is present. No pericardial effusion. Pulmonary arteries: No pulmonary emboli are identified. Aorta: Thoracic aorta non-dilated. Mild atherosclerotic calcification is present. There is no evidence of dissection. Lymph nodes: Within normal limits. Soft tissues: Unremarkable. Bones:Within normal limits for the patient's age. ABDOMEN: Liver: Normal density. The area of decreased attenuation in the right lobe of the liver anterior to the gallbladder is unchanged. There is no displacement of the vessels or abnormality along the border of the liver. This may represent focal fatty infiltration. There are no new hepatic lesions. Portal, Superior Mesenteric, and Splenic Veins: Unremarkable. Gallbladder and Biliary Tract: No radiodense calculus or dilation. Pancreas: Normal density, no abnormal calcifications or inflammatory process. Spleen: Normal. Adrenals: No masses seen. Kidneys: Normal size, contour and axis. No radiodense stones or obstructive uropathy. No masses seen. Abdominal Aorta: Abdominal portion non-dilated. Atherosclerotic calcification is present. Bowel: There is diverticulosis of the colon without evidence of acute diverticulitis. There is no evidence of bowel obstruction or bowel wall thickening. Postsurgical changes with partial colonic resection are again noted. Peritoneal Cavity: No ascites, collection or mesenteric inflammatory response. No free air. Lymph Nodes: Within normal limits. Bones: Within normal limits for the patient's age. There is a stable sclerotic focus in the right pubic bone. Soft Tissues: There is a midline surgical scar again noted. PELVIS: Bladder: Symmetric distention, no gross wall thickening. Reproductive Organs: Uterine fibroids are again visualized. Lymph Nodes: Within normal limits. Bones: Within normal limits. IMPRESSION: 1. Stable 3 mm right pulmonary nodule. No new pulmonary nodules. 2. No acute pulmonary process. 3. Unchanged appearance of the liver. No new hepatic lesions are seen. The area in the liver may represent focal fatty infiltration. 4. No evidence of recurrent or residual mass in the pelvis. RADIATION DOSE DELIVERED: 956.4mGy.cm Total DLP DATA REPOSITORY: All CT scans at this facility are submitted to the National Radiology Data Registry (NRDR) Dose Index Registry (DIR) with the [employer] ([employer]). RADIATION OPTIMIZATION: All CT scans at this facility use at least one of these dose optimization techniques: automated exposure control; mA and/or kV adjustment per patient size (includes targeted exams where dose is matched to clinical indication); or iterative reconstruction.
[2025-03-20] MEDS: Barium Sulfate 2% W/V-Creamy Vanilla Smoothie 450 ML BTL PO (08:01)
[2025-03-20] MEDS: Barium Sulfate 2% W/V-Berry Smoothie 450 ML BTL PO (08:01)
[2025-03-20 08:28] LABS: Abs Immature Grans 0.02 10^3/uL (0.0-0.06); HCT 45.9 % (36.0-46.0); HGB 15.2 g/dL (11.2-15.7); Immature Grans % 0.3 %; MCH 29.4 pg (27.0-33.0); MCHC 33.1 % (32.0-36.0); MCV 89 fL (80-95); MPV 9.4 fL (8.0-11.0); Platelet Count 197 10^3/uL (130-400); RBC 5.17 10^6/uL (3.93-5.22); RDW 12.7 % (11.7-14.6); RDW-SD 41.3 fL; WBC 5.92 10^3/uL (4.4-10.8)
[2025-03-20 08:49] LABS: ALT 36 U/L (14-59); AST 18 U/L (15-37); Albumin 4.0 g/dL (3.4-5.0); Alkaline Phosphatase 63 U/L (46-116); Anion Gap 10.2 mmol/L (3-11); BUN 20 mg/dL (7-18); Bilirubin, Total 0.5 mg/dL (0.2-1.0); CO2 26.8 mmol/L (21.0-32.0); Calcium 8.6 mg/dL (8.5-10.1); Chloride 105 mmol/L (98-107); Estimated GFR 80.71 (mL/min/1.73m2); Glucose 171 mg/dL (74-106); Potassium 4.2 mmol/L (3.5-5.1); Sodium 142 mmol/L (136-145); Total Protein 7.6 g/dL (6.4-8.2)
[2025-03-20] MEDS: Normal Saline - Diluent 50 ML VIAL IJ (10:02)
[2025-03-20] MEDS: Omnipaque 350 MG/ML 500 ML BTL-Imaging package IJ (10:02)
[2025-03-20] MEDS: Normal Saline Flush 10 ML SYR IVP (10:02)
[2025-03-20 23:33] LABS: CEA 1.9 ng/mL (See Note)
== END 2025-03-20 01:48 ==
LOC: DI 01:28
PROVIDERS: PCP Family Medicine; Visit Provider Nurse Practitioner Family
DX: C18.1 Malignant neoplasm of appendix (principal); C18.2 Malignant neoplasm of ascending colon
CPT/HCPCS: 74177; 80053; 71260; 82378; 85025

== ENCOUNTER 2025-03-26 12:22 | Outpatient (REF) | payer MEDICARE, MEDICAID, SELFPAY ==
[2025-03-26 16:27] LABS: Hemoglobin A1C 6.2 % (<5.7)
[2025-03-26 17:24] LABS: Calculated LDL 64 mg/dL (<100); Cholesterol 151 mg/dL (<200); HDL Cholesterol 43 mg/dL (>or=50); Magnesium 2.4 mg/dL (1.8-2.4); Triglyceride 221 mg/dL (<150)
== END 2025-03-26 12:23 | disposition home or self-care (01) ==
LOC: NCHCN 12:22
PROVIDERS: PCP Family Medicine; Visit Provider Nurse Practitioner Family
DX: R25.2 Cramp and spasm (principal); E11.9 Type 2 diabetes mellitus without complications; E78.2 Mixed hyperlipidemia
CPT/HCPCS: 80061; 83036; 83735